=== PATIENT | male | born 1940 | race Caucasian/White ===

== ENCOUNTER 2017-07-15 12:43 | Inpatient (IN) ==
[2017-07-15] MEDS ORDERED: Ondansetron 4 MG/2 ML VIAL IVP ONE (13:13)
[2017-07-15] MEDS ORDERED: *HR* HYDROmorphone (PF) 1 MG/ML SYRINGE IVP ONE (13:17)
[2017-07-15 13:42] LABS: Basophils # 0.1 K/mcL (0.0-0.2); Basophils % 0.4 %; Eosinophils # 0.2 K/mcL (0.0-0.6); Eosinophils % 1.1 %; Hematocrit 34.6 % (37.5-50.1); Hemoglobin 10.7 g/dL (12.9-16.9); Immature Granulocytes % 0.7 % (0-4); Lymphocytes # 1.7 K/mcL (0.6-4.6); Lymphocytes % 8.6 %; Mean Corpuscular HGB Conc 30.9 g/dL (31.6-35.5); Mean Corpuscular Hemoglobin 27.7 pg (28.0-33.3); Mean Corpuscular Volume 89.6 fL (83.0-100.0); Monocytes # 1.4 K/mcL (0.0-1.3); Monocytes % 7.1 %; Neutrophils # 16.1 K/mcL (1.6-8.9); Platelet Count 461 K/mcL (140-400); Red Blood Count 3.86 M/mcL (4.19-5.50); Red Cell Distribution Width 16.1 % (11.5-14.5); Segmented Neutrophils % 82.1 %
[2017-07-15] MEDS ORDERED: Vancomycin 1,000 MG in D5% in Water 250 ML IVPB ONE (13:49)
[2017-07-15 13:56] LABS: Alanine Aminotransferase 9 Units/L (0-55); Albumin 2.7 g/dL (3.5-5.0); Albumin/Globulin Ratio 0.6 (1.1-2.2); Alkaline Phosphatase 124 Units/L (38-126); Aspartate Amino Transferase 13 Units/L (5-34); BUN/Creatinine Ratio 19 (6-26); Bilirubin,Total 0.6 mg/dL (0.2-1.2); Blood Urea Nitrogen 18 mg/dL (8-26); Calcium 8.8 mg/dL (8.6-10.8); Carbon Dioxide 23 mEq/L (19-29); Chloride 107 mEq/L (98-109); Globulin 4.7 g/dL (2.4-3.5); Glucose 160 mg/dL (70-99); Osmolality,Calculated 295 (280-300); Sodium 140 mEq/L (136-145); Total Protein 7.4 g/dL (6.0-8.3); eGFR For African Americans > 60 (> 60); eGFR For Non-African Americans > 60 (> 60)
--- NOTE | 2017-07-15 14:52 | Emergency Department Note ---
Disposition Clinical Impression: Diabetic ulcer of both feet, Weakness generalized, Elevated troponin Cellulitis Qualifiers: Site of cellulitis: extremity Site of cellulitis of extremity: lower extremity Laterality: unspecified laterality Qualified Code(s): L03.119 - Cellulitis of unspecified part of limb Disposition: Admitted As Inpatient Condition: Good Referrals: Laureano Modi Jr, MD [Primary Care Provider] - Forms: ED Satisfaction Letter Time of Disposition: 15:10 Weakness HPI - General Chief complaint: ED Weakness Stated complaint: weakness Time Seen by Provider: 07/15/17 12:48 Source: patient Nursing Notes Reviewed: Yes Vital Signs Reviewed: Yes - History of Present Illness HPI Narrative: The patient is a 77 y/o M with a history of untreated Diabetes who presents complaining of weakness and feet pain. The patient states that he has been feeling weak for about 3 months. He admits he lives alone and is unable to care for himself well. He states that he has a history of falling because he feels like his legs are weak. He denies any head trauma or Loss of consciousness. He states that he has been having bilateral feet pain for the past 3 months. HE describes it as a burning pain that does not radiate and worsens with walking. He admits applying Neosporin makes it feel better. HE admits tingling but denies any numbness in his bilateral feet. He admits it makes it hard for him to walk and that it causes him to shuffle his feet. He denies any fever, headaches, vision changes, chest pain, shortness of breath, difficulty in breathing, no abdominal pain, nausea and vomiting, and no neurological deficits. Pain Scale: 8 - Related Data Home Medications Medication Instructions Recorded Confirmed No Known Home Drugs 07/15/17 07/15/17 Allergies Allergy/AdvReac Type Severity Reaction Status Date / Time No Known Allergies Allergy Verified 07/03/15 17:42 All systems ED: reviewed and negative except as stated. Constitutional: Reports: weakness. Denies: fever, chills Cardiovascular: Denies: chest pain, palpitations, dyspnea on exertion Respiratory: Denies: dyspnea, wheezes Gastrointestinal: Denies: abdominal pain, nausea, vomiting Neurological: Reports: weakness, paresthesias (Admits paresthesias in his bilateral feet. ). Denies: headache, numbness Past Medical History - Past Medical History Medical history: Reports: COPD, coronary artery disease, diabetes, hyperlipidemia, hypertension Surgical history: Reports: no surgical history Psychiatric history: Reports: no psych history - Social History Smoking Status: Former smoker Smokeless Tobacco Status: No Alcohol use: Reports: none Drug use: Reports: none Physical Exam - General General appearance: alert, in no apparent distress - Head Head exam: atraumatic - Chest Chest inspection: Present: normal inspection. Absent: tenderness - Respiratory Respiratory exam: Present: wheezes (Expiratory wheezes bilaterally anteriorly). Absent: respiratory distress - Cardiovascular Cardiovascular exam: Present: tachycardia - Abdominal Exam Abdominal exam: Present: soft, Non-Tender. Absent: tenderness, distention, guarding, rebound, rigidity - Expanded Lower Extremity Exam Lower leg exam: Absent: tenderness, swelling, laceration Ankle exam: Present: tenderness (tenderness to palpation bilaterally), swelling (bilaterally), erythema. Absent: abrasion Foot/toe exam: Present: tenderness (tenderness to palpation bilaterally), swelling (bilateral swollen feet), erythema (bilateral feet are erythematous), other (ulcer present on the left heel. Open wounds on the dorsal aspect of bilateral feet with discharge present. Bilateral feet has toes that are black. ) Course - Consultations Consultation #1: Spoke with Marcella, the admitting [employer]IES COUNCIL DIRECTOR, at 14:09. Discussed the patient and she agree to admit the patient. Time: 14:09 Vital Signs Temperature 98.1 F 07/15/17 12:44 Pulse Rate 114 07/15/17 12:44 Respiratory Rate 16 07/15/17 12:44 Blood Pressure 167/103 07/15/17 12:44 O2 Sat by Pulse Oximetry 97 07/15/17 12:44 Temperature 98.1 F 07/15/17 12:44 Pulse Rate 102 07/15/17 14:57 Respiratory Rate 16 07/15/17 14:57 Blood Pressure 168/96 07/15/17 14:57 O2 Sat by Pulse Oximetry 98 07/15/17 14:57 Oxygen Delivery Oxygen Delivery Room Air Weakness - MDM Narrative Medical decision making narrative: The patient is a 77 y/o M with untreated Diabetes who present with weakness and bilateral feet pain. The patient lives alone and admits not receiving great care at home. Physical exam showed bilateral feet with diabetic ulcers, cellulitis of the lower extremities, and black toes. Open wounds and ulcers have some discharge from it. Labs showed elevated WBC at 19.6 and Hg of 10.7. Patient was given Vancomycin. CXR suggest Congestive heart failure. CT of head shows no intracranial abnormalities. Xray of bilateral ankle and feet shows no evidence of osteomyelitis. Spoke with the admitting doctor who had me speak with his [employer]IES COUNCIL DIRECTOR (Marcella) and discussed the patient. They agree to accept the patient. Patient agrees with the plan. - Lab Data Lab results reviewed: Yes I reviewed the patient's lab results. Result diagrams: 07/15/17 13:30 07/15/17 13:30 Lab Results 07/15/17 07/15/17 07/15/17 Range/Units 13:30 13:30 13:30 WBC 19.6 H (4.3-11.1) K/mcL RBC 3.86 L (4.19-5.50) M/mcL Hgb 10.7 L (12.9-16.9) g/dL Hct 34.6 L (37.5-50.1) % MCV 89.6 (83.0-100.0) fL MCH 27.7 L (28.0-33.3) pg MCHC 30.9 L (31.6-35.5) g/dL RDW 16.1 H (11.5-14.5) % Plt Count 461 H (140-400) K/mcL MPV 10.0 (9.4-12.4) fL Immature Gran % 0.7 (0-4) % Seg Neutrophils % 82.1 % Lymphocytes % 8.6 % Monocytes % 7.1 % Eosinophils % 1.1 % Basophils % 0.4 % Neutrophils # 16.1 H (1.6-8.9) K/mcL Lymphocytes # 1.7 (0.6-4.6) K/mcL Monocytes # 1.4 H (0.0-1.3) K/mcL Eosinophils # 0.2 (0.0-0.6) K/mcL Basophils # 0.1 (0.0-0.2) K/mcL Sodium 140 (136-145) mEq/L Potassium 4.0 (3.5-4.5) mEq/L Chloride 107 (98-109) mEq/L Carbon Dioxide 23 (19-29) mEq/L BUN 18 (8-26) mg/dL Creatinine 0.93 (0.72-1.25) mg/dL Est GFR ( Amer) > 60 (> 60) Est GFR (Non-Af Amer) > 60 (> 60) BUN/Creatinine Ratio 19 (6-26) Glucose 160 H (70-99) mg/dL Calculated Osmolality 295 (280-300) Lactic Acid (0.5-2.2) mmol/L Calcium 8.8 (8.6-10.8) mg/dL Total Bilirubin 0.6 (0.2-1.2) mg/dL AST 13 (5-34) Units/L ALT 9 (0-55) Units/L Alkaline Phosphatase 124 (38-126) Units/L Troponin I 0.04 H* (0-0.03) ng/mL Serum Total Protein 7.4 (6.0-8.3) g/dL Albumin 2.7 L (3.5-5.0) g/dL Globulin 4.7 H (2.4-3.5) g/dL Albumin/Globulin Ratio 0.6 L (1.1-2.2) 07/15/17 Range/Units 13:33 WBC (4.3-11.1) K/mcL RBC (4.19-5.50) M/mcL Hgb (12.9-16.9) g/dL Hct (37.5-50.1) % MCV (83.0-100.0) fL MCH (28.0-33.3) pg MCHC (31.6-35.5) g/dL RDW (11.5-14.5) % Plt Count (140-400) K/mcL MPV (9.4-12.4) fL Immature Gran % (0-4) % Seg Neutrophils % % Lymphocytes % % Monocytes % % Eosinophils % % Basophils % % Neutrophils # (1.6-8.9) K/mcL Lymphocytes # (0.6-4.6) K/mcL Monocytes # (0.0-1.3) K/mcL Eosinophils # (0.0-0.6) K/mcL Basophils # (0.0-0.2) K/mcL Sodium (136-145) mEq/L Potassium (3.5-4.5) mEq/L Chloride (98-109) mEq/L Carbon Dioxide (19-29) mEq/L BUN (8-26) mg/dL Creatinine (0.72-1.25) mg/dL Est GFR ( Amer) (> 60) Est GFR (Non-Af Amer) (> 60) BUN/Creatinine Ratio (6-26) Glucose (70-99) mg/dL Calculated Osmolality (280-300) Lactic Acid 1.4 (0.5-2.2) mmol/L Calcium (8.6-10.8) mg/dL Total Bilirubin (0.2-1.2) mg/dL AST (5-34) Units/L ALT (0-55) Units/L Alkaline Phosphatase (38-126) Units/L Troponin I (0-0.03) ng/mL Serum Total Protein (6.0-8.3) g/dL Albumin (3.5-5.0) g/dL Globulin (2.4-3.5) g/dL Albumin/Globulin Ratio (1.1-2.2) - Radiology Data Radiology results reviewed: Yes I reviewed the patient's radiology results. Chest X-Ray 07/15/17 13:13 IMPRESSION: Findings suggest congestive heart failure D/ / Jayson Jimenez MD / Jayson Jimenez MD Interpreting Provider: Jayson Jimenez MD Head CT 07/15/17 13:15 IMPRESSION: No acute intracranial abnormality. Diffuse atrophic changes with findings suggesting chronic microvascular ischemia an old right occipital lobe infarct D/ / Jayson Jimenez MD / Jayson Jimenez MD Interpreting Provider: Jayson Jimenez MD Ankle X-Ray 07/15/17 13:52 IMPRESSION: Soft tissue ulcer in the left heel with diffuse soft tissue swelling consistent with cellulitis. Extensive vascular calcifications suggest diabetes. No definite evidence of osteomyelitis. D/ / Jack Melendez MD / Jack Melendez MD Interpreting Provider: Jack Melendez MD Foot X-Ray 07/15/17 13:52 IMPRESSION: No acute bone or joint abnormality. D/ / Klever Diez MD / Klever Diez MD Interpreting Provider: Klever Diez MD - EKG Data EKG attestation: Yes I reviewed and interpreted this EKG. EKG shows normal: sinus rhythm Rate: tachycardia When compared to previous EKG there are: no significant changes Interpretation: no acute changes Critical Care Time Critical Care Time: Yes Total Critical Care Time: 35 Attestation: Critical care time 35 minutes to manage patient's elevated troponin, weakness, and diabetic ulcers. Attestation Statement - Attestation Attestation: Patient was seen with resident physician. I reviewed the history, physical, assessment and plan, and agree with the findings. I also personally evaluated this patient and had [id number] time with this patient. 77-year-old male presents emergency Department with a variety of complaints. Primarily he is complaining of generalized weakness and inability to walk. He also says he has had increasing pain in his feet. He says he is a diabetic but has not taken his insulin for well over a year. Denies fevers or chills. He denies chest pain or shortness of breath. On examination vital signs demonstrate elevated heart rate. Blood pressure was stable. ENT poorly kept but otherwise unremarkable. Heart and lungs are normal. Abdomen is soft and nontender. Extremities patient has diabetic ulcers with developing cellulitis in both feet bilaterally. Neurologically the patient is alert and oriented. ED course patient was started on an IV antibiotics for his feet. Blood cultures were drawn. Chest x-ray demonstrates CHF. X-rays of the feet did not reveal acute osteomyelitis. Troponin initially was mildly elevated. I think this is probably related to CHF as opposed to acute WA which is inconsistent with his EKG. EKG shows no acute ischemic changes. Because of the variety of issues this patient has will admit to the hospitalist service for further evaluation and treatment. Will start on IV antibiotics here and also make sure the patient is comfortable. We will also check blood cultures. Hospitalist service notified and agreed to accept patient. I agree with resident physician assessment and plan. Critical care time 35 minutes.
[2017-07-15] MEDS ORDERED: Dextrose Gel 15 GM PO PRN ×2 (17:07)
[2017-07-15] MEDS ORDERED: *HR* Dextrose 50 % in Water (Syg) 50 ML SYRINGE IVP PRN (17:07)
[2017-07-15] MEDS ORDERED: *HR* OxyCODONE Immed Rel 5 MG TABLET PO PRN (17:07)
[2017-07-15] MEDS ORDERED: D5% in Water 1,000 ML IVC PRN (17:07)
[2017-07-15] MEDS ORDERED: Vancomycin 1,250 MG in D5% in Water 250 ML IVPB SCH (18:00)
[2017-07-15 19:02] LABS: Hemoglobin A1C 9.3 %
[2017-07-15] MEDS ORDERED: Naloxone 0.4 MG/ML INJ IVP PRN (19:37)
[2017-07-15] MEDS ORDERED: Acetaminophen 325 MG TABLET PO PRN (19:37)
[2017-07-15] MEDS ORDERED: Ondansetron 4 MG/2 ML VIAL IVP PRN (19:37)
--- NOTE | 2017-07-15 21:13 | Electrocardiograph Report ---
[facility] Test Date: 2017-07-15 Pat Name: Varghese Mayorga Department: 103 Room: 3B47 Gender: M [employer] Supervisor: : [id number] Requested By: Joe Stanton Order Number: [id number] Reading MD: Lonnie Holt MD Measurements Intervals Roll Rate: 111 P: -16 AK: 124 QRS: 89 QRSD: 134 T: 35 QT: 349 QTc: 415 Interpretive Statements SINUS TACHYCARDIA Electronically Signed On 07-15-2017 21:11:54 EDT by Lonnie Holt MD
[2017-07-15] MEDS: Pantoprazole 40 MG VIAL IVP SCH (21:20)
[2017-07-15] MEDS: Insulin LISPRO 300 UNITS/3 ML VIAL SQ SCH (21:20)
[2017-07-15] MEDS: amLODIPine 5 MG TABLET PO SCH (21:21)
[2017-07-15] MEDS: *HR* Heparin 5,000 UNIT/ML VIAL SQ SCH (21:21)
[2017-07-15] MEDS: *HR* Morphine 2 MG/ML SYRINGE IVP PRN (21:45)
[2017-07-15] MEDS ORDERED: 0.9 % Sodium Chloride 1,000 ML IVC ONE (23:06)
--- NOTE | 2017-07-15 23:06 | Event Note ---
Date of Encounter: 07/15/17 Time of Encounter: 23:04 Patients and examined with nurse practitioner. Agree with assessment and plan. Patients with history of diabetes mellitus not taking any medications presents with bilateral foot cellulitis and symptoms suggestive of PVD. We start the patient on vancomycin and Zosyn. Hydrate. Podiatry to see arterial Doppler study of both lower extremity. Sliding scale insulin and check HbA1C. Wound and blood cultures. full code
--- NOTE | 2017-07-15 23:47 | Internal Med History&Physical ---
Date of Encounter: 07/16/17 Time of Encounter: 19:00 Assessment and Plan (1) Sepsis Current visit: Yes Status: Acute Patient currently meets sepsis criteria based on WBC, heart rate of 114, and infection related to cellulitis of bilateral feet. Initial lactic acid 1.4. IV NS 0.9 bolus and f/u fluids @ 100 mL/HR. Blood cultures x2 and wound culture ordered. IVPB vancomycin with pharmacy dosing and IVPB Zosyn 3.375 gm Q8 ordered for infection coverage. Repeat lactic acid. Monitor f/u labs for WBC and infection status. Supplemental O2 with titration and continuous SpO2 monitoring. Continuous cardiac telemetry for tachycardia. Qualifiers: Sepsis type: sepsis due to unspecified organism Qualified Code(s): A41.9 - Sepsis, unspecified organism (2) Cellulitis Current visit: Yes Status: Acute Bilateral cellulitis of the feet and ankles that patient states has been present for the past 4 months. Patient's feet are erythematous, edematous, and painful to the touch. Serosanguineous discharge. Wound culture ordered. IV vancomycin with pharmacy dosing and IV Zosyn 3.375 Q8 ordered for infection coverage. Blood cultures x2 ordered. Will adjust abx coverage based on culture results. CLIFF and CT of LEs ordered. Vascular surgery and Podiatry consults placed. Monitor f/u labs for infection status. Qualifiers: Site of cellulitis: extremity Site of cellulitis of extremity: lower extremity Laterality: unspecified laterality Qualified Code(s): L03.119 - Cellulitis of unspecified part of limb (3) Elevated troponin Current visit: Yes Status: Acute Patient's initial troponin is 0.04 on admission is most likely reactive due to current leukocytosis and cellulitis. Will trend troponin x2. Continuous cardiac telemetry due to current tachycardia. (4) Weakness generalized Current visit: Yes Status: Acute Patient presents with generalized weakness and pain in bilateral lower extremities to recurrent cellulitis and diabetic foot ulcers. Falls/safety precautions ordered. PT/OT consults ordered to assess for ambulation needs for post-discharge planning. (5) Anemia Current visit: Yes Status: Acute Hgb 10.7 and Hct 34.6 on admission. Patient has no history of anemia and denies unusual bleeding. Previous values in 2014 WNL. Fecal hemoccult ordered. Monitor H/H in follow-up labs. B12 and Folic acid ordered daily. Qualifiers: Anemia type: unspecified type Qualified Code(s): D64.9 - Anemia, unspecified (6) Diabetes Current visit: Yes Status: Chronic Hx of chronic diabetes with insulin control but patient reports he has not used insulin in two years due to the cost. Patient's diabetes is currently uncontrolled and he has advanced stage diabetic foot ulcers on bilateral feet. Diabetes Education consult ordered. Low-dose correction insulin sliding scale with hypoglycemic protocol ordered. BG checks ACHS. A1c is currently 9.3. Diabetic diet ordered. Wound Care consult and daily wound care ordered. 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 mellitus moth exterminator insulin use: with moth exterminator use Qualified Code(s) : E11.621 - Type 2 diabetes mellitus with foot ulcer; L97.509 - Non-pressure chronic ulcer of other part of unspecified foot with unspecified severity; L97.509 - Non-pressure chronic ulcer of other part of unspecified foot with unspecified severity; L97.509 - Non-pressure chronic ulcer of other part of unspecified foot with unspecified severity; L97.509 - Non-pressure chronic ulcer of other part of unspecified foot with unspecified severity; Z79.4 - oil heaterman (current) use of insulin; Z79.4 - halfway (current) use of insulin; Z79.4 - oil heaterman (current) use of insulin; Z79.4 - oil heaterman (current) use of insulin (7) HTN (hypertension) Current visit: Yes Status: Chronic Hx of chronic HTN. Patient's current BP is 167/103 on admission. Norvasc 10 mg ordered daily while inpatient. Monitor patient and VS. Qualifiers: Hypertension type: essential hypertension Qualified Code(s): I10 - Essential (primary) hypertension (8) HLD (hyperlipidemia) Current visit: Yes Status: Chronic Hx of chronic HLD but patient does not currently take any statin. Lipid panel ordered in a.m. labs. Will add Lipitor based on lipid panel results. Qualifiers: Hyperlipidemia type: pure hypercholesterolemia Qualified Code(s): E78.00 - Pure hypercholesterolemia, unspecified; E78.0 - Pure hypercholesterolemia (9) Diabetic ulcer of both feet Current visit: Yes Status: Chronic Patient presents with chronic advanced stage decubitus ulcers of bilateral feet. Patient states he has not used insulin in two years due to cost. Wound Care consult ordered with daily wound care. Wound culture ordered. Saddle And Side Wire Stitcher consult ordered. Low-dose correction insulin sliding scale ordered. BG checks ACHS. A1c is currently 9.3. Vascular surgery and Podiatry consults ordered. (10) DVT prophylaxis Current visit: Yes Status: Acute Heparin 5,000 units SQ Q8 for DVT prophylaxis. Internal Medicine - H&P: HPI Chief complaint: Weakness and Cellulitis of Bilateral LEs Admitted From: Emergency Dept Plans for Post Hospital Care: Home History of present illness: Mr. Mayorga is a 77 year old male with medical history of COPD, CAD, diabetes controlled with insulin, HLD, and HTN presents from the ED with chief complaint of weakness and bilateral foot pain related to infection. Patient states his feet are hurting for approximately 4 months on and off. Patient states he is living alone and unable to care for himself and currently has no support system. Patient reports history of falls due to leg numbness. Patient states his feet constantly burn and tingle making it hard for him to walk so he must shuffle his feet. Patient states he has not taken insulin for approximately 2 years due to the cost. Patient reports he is a former smoker who smoked 1.5 packs per day and quit 10 years ago. Patient denies recent illness, fever, chills, nausea, vomiting, headache, changes in vision, shortness of breath, chest pain, palpitations, lightheadedness, diarrhea, constipation, presyncope, or syncope. Three-view x-ray of the right foot today shows no acute bone or joint abnormality. Three-view x-ray of the right ankle there is no acute bony or joint abnormality. Three-view x-ray of the left foot and left ankle today show soft tissue ulcer and left heel with diffuse soft tissue swelling consistent with cellulitis. Extensive vascular calcifications suggest diabetes but no definite evidence of osteomyelitis. Single view CXR today shows findings suggestive of congestive heart failure. CT of the head without contrast today shows no acute intracranial abnormality and diffuse atrophic changes with findings suggesting chronic microvascular ischemia and old right occipital lobe infarct. Upon admission, patient's vital signs include temperature of 98.1F, heart rate of 114 bpm, respiratory rate of 16, BP of 167/ 103, and SPO2 97% on room air. Pertinent abnormal labs include WBC of 19.6, Hgb of 10.7, HCT of 34.6. White count of 461, glucose of 160 troponin of 0.04 albumin 2.7, globulin 4.7, and albumin/globulin ratio of 0.6. Initial lactic acid 1.4. Patient currently meets sepsis criteria based on WBC, heart rate of 114, and infection related to cellulitis of bilateral feet. On assessment, patient is alert and oriented 3 and states his feet are very painful to touch. Heart rate is tachycardic. Lungs have diminished breath sounds bilateral auscultation. Patient is hemodynamically stable and reports bilateral pain in feet as well as mild SOB. Mr. Mayorga is at high risk for morbidity based on current sepsis criteria, cellulitis of bilateral feet, uncontrolled diabetes, history, and risk factors and will be placed as inpatient status. Time spent with patient greater than 40 minutes. Past Med Surg Social Fam HX - Past Medical History Source: patient, old records reviewed Medical history: COPD, coronary artery disease, diabetes, hyperlipidemia, hypertension Psychiatric history: no psych history - Past Surgical History Surgical History: no surgical history - Social History Smoking Status: Former smoker Packs per day: 1.5 PPD - reports quitting 10 years ago Smokeless Tobacco Status: No Alcohol use: none Drug use: none Current living situation: Home Activity Level: Independent ambulation Recent Out of Country Travel Within the Last 8 Weeks: No Exposure or Possible Exposure to Illness During Travel: No - Family History Mother Race: Family Member Ethnicity: Non- Living Status: Age at : 70 Cause of : CAD Hx Family Cardiac Disorders: Yes (CAD) Hx Family Endocrine Disorder: Yes (DM) Father Race: Family Member Ethnicity: Non- Living Status: Age at : 60 Cause of : Emphysema Hx Family Cardiac Disorders: Yes (HD) Hx Family Respiratory Disorders: Yes (Emphysema) Brother Family Member Ethnicity: Non- Living Status: Still Living Hx Family Cardiac Disorders: Yes (HD, HTN) Hx Family Endocrine Disorder: Yes (DM) Sister Race: Family Member Ethnicity: Non- Living Status: Age at : 59 Cause of : DM complications Hx Family Endocrine Disorder: Yes (DM) Internal Medicine - H&P: Meds No Known Home Drugs 07/15/17 [History] 3 Allergy/AdvReac Type Severity Reaction Status Date / Time No Known Allergies Allergy Verified 09/20/15 17:42 All Systems PM: A 10-system review of systems was performed and is negative for pertinent findings except as documented above in the HPI. - Constitutional Constitutional: no chills, no fever(s), no night sweats - EENT Eyes: no change in vision, no discharge, no pain, no photophobia Ears: no ear discharge, no ear pain, no tinnitus Nose, mouth and throat: no dysphagia, no nasal discharge, no neck pain, no sore throat - Breasts Breasts: as per HPI - Cardiovascular Cardiovascular ROS IM: as per HPI, dyspnea, irregular heart rhythm (Tachycardia) - Respiratory Respiratory: as per HPI, dyspnea - Gastrointestinal Gastrointestinal: no abdominal pain, no diarrhea, no hematemesis, no hematochezia, no melena, no nausea, no vomiting - Genitourinary Genitourinary ROS male: as per HPI - Musculoskeletal Musculoskeletal ROS IM: as per HPI, numbness (Bilateral feet), tingling ( Bilateral feet) - Integumentary Integumentary IM: as per HPI, sores (Bilateral feet due to decubitus ulcers and cellulitis) - Neurological Neurological ROS: as per HPI, abnormal gait (Foot shuffling due to pain) - Psychiatric Psychiatric: as per HPI, anxiety - Endocrine Endocrine IM: as per HPI - Hematologic/Lymphatic Hematologic/Lymphatic: no easy bruising - Allergic/Immunologic Allergic/Immunologic: as per HPI - Constitutional Vitals: Temp Pulse Resp BP Pulse Ox 97.9 F 105 16 146/79 93 07/15/17 23:04 07/15/17 23:04 07/15/17 23:04 07/15/17 23:04 07/15/17 23:04 General appearance: Present: cooperative, disheveled, mild distress, A&O X 3, pleasant, answers questions appropriately - Head Head exam: Present: atraumatic, normocephalic - Eye Eye exam: Present: PERRL, conjuntiva pink, sclera anicteric Pupils: Present: PERRL - ENT ENT exam: Present: normal exam, normal external ear exam - Neck Neck exam general surgery: Present: supple, trachea midline. Absent: lymphadenopathy - Respiratory Respiratory exam: Present: decreased breath sounds - Cardiovascular Cardiovascular exam: Present: tachycardia - GI/Abdominal GI/Abdominal exam: Present: normal bowel sounds, soft, no peritoneal signs. Absent: distended, tenderness - Rectal Rectal exam: Present: deferred - Additional comments: exam deferred. - Extremities Exam Extremities exam: Present: pedal edema (Bilaterally in feet and LEs), warm - Back Exam Back exam: Present: vertebral tenderness (Sacral decubitus ulcer) - Neurological Exam Neurological exam: Present: CN II-XII intact, oriented X3, no focal deficits. Absent: pronater drift, facial droop, speech deficit - Psychiatric Psychiatric exam: Present: anxious - Skin Skin exam: Present: erythema (Erythema, edema, and discharge in bilateral feet) Internal Med - H&P Results - Labs CBC & Chem 7: 07/15/17 13:30 07/15/17 13:30 Labs: Cardiac Enzymes 07/15/17 Range/Units 20:07 Troponin I 0.04 H* (0-0.03) ng/mL - EKG Data EKG shows normal: sinus rhythm Rate: tachycardia - EKG Data Prior EKG available for review: yes EKG comments: 07/15/17 23:55 EKG dated 09/17/08 shows sinus tachycardia with short GA interval and extensive ST-T changes suggest myocardial injury/ischemia. EKG dated 07/15/17 shows sinus tachycardia with possible left atrial enlargement , right bundle branch block.
[2017-07-16] MEDS: *HR* Morphine 2 MG/ML SYRINGE IVP PRN ×4 (01:45→21:47)
[2017-07-16 01:54] LABS: Basophils # 0.1 K/mcL (0.0-0.2); Basophils % 0.3 %; Eosinophils # 0.2 K/mcL (0.0-0.6); Eosinophils % 0.9 %; Hematocrit 31.2 % (37.5-50.1); Hemoglobin 9.6 g/dL (12.9-16.9); Immature Granulocytes % 0.8 % (0-4); Lymphocytes # 1.5 K/mcL (0.6-4.6); Lymphocytes % 6.9 %; Mean Corpuscular HGB Conc 30.8 g/dL (31.6-35.5); Mean Platelet Volume 10.1 fL (9.4-12.4); Monocytes # 1.7 K/mcL (0.0-1.3); Monocytes % 8.2 %; Neutrophils # 17.5 K/mcL (1.6-8.9); Platelet Count 389 K/mcL (140-400); Red Blood Count 3.43 M/mcL (4.19-5.50); Red Cell Distribution Width 16.1 % (11.5-14.5); Segmented Neutrophils % 82.9 %
[2017-07-16 01:58] LABS: INR 1.2; Prothrombin Time 12.5 Seconds (9.4-12.1)
[2017-07-16 02:01] LABS: Activated Partial Thrombo Time 33.5 Seconds (26.0-36.0)
[2017-07-16 02:08] LABS: Alanine Aminotransferase 9 Units/L (0-55); Albumin 2.4 g/dL (3.5-5.0); Albumin/Globulin Ratio 0.6 (1.1-2.2); Alkaline Phosphatase 110 Units/L (38-126); Aspartate Amino Transferase 10 Units/L (5-34); BUN/Creatinine Ratio 18 (6-26); Bilirubin,Total 0.4 mg/dL (0.2-1.2); Blood Urea Nitrogen 20 mg/dL (8-26); Calcium 8.3 mg/dL (8.6-10.8); Carbon Dioxide 24 mEq/L (19-29); Chloride 108 mEq/L (98-109); Chol/HDL Ratio 3.8 (0-4.9); Cholesterol 127 mg/dL (< 200); Globulin 3.9 g/dL (2.4-3.5); Glucose 263 mg/dL (70-99); HDL Cholesterol 33 mg/dL (40-59); LDL Cholesterol,Calculated 73 mg/dL (0-99); Magnesium 1.5 mg/dL (1.6-2.6); Osmolality,Calculated 300 (280-300); Potassium 4.8 mEq/L (3.5-4.5); Sodium 139 mEq/L (136-145); Total Protein 6.3 g/dL (6.0-8.3); Triglycerides 106 mg/dL (< 150); eGFR For African Americans > 60 (> 60); eGFR For Non-African Americans > 60 (> 60)
[2017-07-16] MEDS: 0.9 % Sodium Chloride 1,000 ML IVC SCH ×2 (02:34→10:16)
[2017-07-16] MEDS: Vancomycin 1,000 MG in D5% in Water 250 ML IVPB SCH ×2 (02:34→16:07)
[2017-07-16] MEDS: Piperacillin/Tazobactam 3.375 GM in D5% in Water (Mini-Bag+) 100 ML IVPB SCH ×3 (02:35→16:09)
[2017-07-16] MEDS: *HR* OxyCODONE Immed Rel 5 MG TABLET PO PRN (02:36)
[2017-07-16] MEDS: *HR* Heparin 5,000 UNIT/ML VIAL SQ SCH ×3 (06:31→21:47)
[2017-07-16] MEDS ORDERED: Folic Acid 1 MG TABLET PO SCH (09:00)
[2017-07-16] MEDS ORDERED: Cyanocobalamin (B-12) 1,000 MCG TABLET PO SCH (09:00)
[2017-07-16] MEDS: Pantoprazole 40 MG VIAL IVP SCH (10:15)
[2017-07-16] MEDS: amLODIPine 5 MG TABLET PO SCH (10:16)
[2017-07-16] MEDS: Insulin LISPRO 300 UNITS/3 ML VIAL SQ SCH ×4 (10:17→21:42)
--- NOTE | 2017-07-16 11:04 | Vascular/Endovasc Consult Note ---
Date of Encounter: 07/16/17 Time of Encounter: 08:30 Assessment and Plan (1) Atherosclerosis of [place] arteries of right leg with ulceration of other part of foot Current Visit: Yes Status: Chronic The patient has bilateral foot ulcerations. Has a diminished pulse exam. His ankle brachial index is pending. The pathophysiology and natural history of peripheral vascular disease was discussed and all questions were answered. He has tentatively been scheduled for an angiogram on 07/17/17. The risks, benefits and alternatives were discussed and all questions were answered. He expressed understanding and wishes to proceed. (2) Atherosclerosis of [place] arteries of left leg with ulceration of other part of foot Current Visit: Yes Status: Chronic (3) Diabetes Current Visit: Yes Status: Chronic He was counseled regarding atherosclerotic risk factor reduction. 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 mellitus alf insulin use: without supervisor intermediates use Qualified Code( s): E11.621 - Type 2 diabetes mellitus with foot ulcer; L97.509 - Non-pressure chronic ulcer of other part of unspecified foot with unspecified severity; L97.509 - Non-pressure chronic ulcer of other part of unspecified foot with unspecified severity; L97.509 - Non-pressure chronic ulcer of other part of unspecified foot with unspecified severity; L97.509 - Non-pressure chronic ulcer of other part of unspecified foot with unspecified severity (4) HTN (hypertension) Current Visit: Yes Status: Chronic Qualifiers: Hypertension type: essential hypertension Qualified Code(s): I10 - Essential (primary) hypertension (5) HLD (hyperlipidemia) Current Visit: Yes Status: Chronic Qualifiers: Hyperlipidemia type: unspecified Qualified Code(s): E78.5 - Hyperlipidemia , unspecified - History of Present Illness Consult date: 07/16/17 Requesting physician: Job Goodman Consult reason: Peripheral vascular disease Chief complaint: bilateral foot ulceration History of present illness: Mr. Mayorga is a 77 year old male with a long history of diabetes who reports that he has not taken insulin for several months. He states that he has developed progressive bilatearl leg and foor pain as well as multiple ulcers. He was unable to obtain transportation to seek medical care during that time. The patient was seen in the ER and admitted to [facility]. He was started on intravenous antibiotics. He had a diminished pulse exam and vascular surgery was consulted for further evaluation. The patient denies any fevers or chills. He reports disabling claudication and ulceration. He denies chest pain or shortness of breath. Past Med Surg Social Fam HX - Past Medical History Medical history: COPD, coronary artery disease, diabetes, hyperlipidemia, hypertension Psychiatric history: no psych history - Past Surgical History Surgical History: no surgical history - Social History Smoking Status: Former smoker Packs per day: 1.5 PPD - reports quitting 10 years ago Smokeless Tobacco Status: No Alcohol use: none Drug use: none - Family History Mother Race: Family Member Ethnicity: Non- Living Status: Age at : 70 Cause of : CAD Hx Family Cardiac Disorders: Yes (CAD) Hx Family Endocrine Disorder: Yes (DM) Father Race: Family Member Ethnicity: Non- Living Status: Age at : 60 Cause of : Emphysema Hx Family Cardiac Disorders: Yes (HD) Hx Family Respiratory Disorders: Yes (Emphysema) Brother Family Member Ethnicity: Non- Living Status: Still Living Hx Family Cardiac Disorders: Yes (HD, HTN) Hx Family Endocrine Disorder: Yes (DM) Sister Race: Family Member Ethnicity: Non- Living Status: Age at : 59 Cause of : DM complications Hx Family Endocrine Disorder: Yes (DM) Medications and Allergies No Known Home Drugs 07/15/17 [History] 3 Allergy/AdvReac Type Severity Reaction Status Date / Time No Known Allergies Allergy Verified 07/03/15 17:42 All Systems Review: A 10-system review of systems was performed and is negative for pertinent findings except as documented above in the HPI. - Constitutional Constitutional: no chills, no fever(s) - Cardiovascular Cardiovascular: no chest pain at rest, no dyspnea at rest Exam Vital Signs, Last 4 Hours Temp Pulse Resp BP Pulse Ox 07/16/17 07:37 97.6 F 96 17 147/81 94 General: Present: Conversant, No Apparent Distress HEENT: Present: Trachea midline, Pupils equal Neck: Absent: JVD, Left Carotid bruit, Right Carotid bruit Cardiac: Present: Reg Rate and Rhythm, Normal S1 and S2 Lungs: Present: Normal Breath Sounds, No Wheeze, Rales, Rhonchi Neuro: Present: Alert and responsive, No focal deficits noted, Motor nerves grossly intact, Sensory nerves grossly intact Abdomen: Present: Soft, Non-tender. Absent: Masses Vascular: Present: Normal capillary refill, Edema (trace at bilateral ankles). Absent: Clubbing Skin: Present: Wound/ulcer(s) (bilateral foot ulcerations) Consult Discharge Plan - Plan Referrals: Magda Garcia CNP [Partnered Physician] - 07/24/17 10:30 am Laureano Modi Jr, MD [Primary Care Provider] - Jack Bernard MD [Partnered Physician] - (1 WEEK AFTER DISCHARGE)
[2017-07-16] MEDS ORDERED: Magnesium Sulfate 2 GM in D5% in Water 100 ML IVPB ONE (12:48)
[2017-07-16 12:55] LABS: Bilirubin,Urine Small (Negative); Blood,Urine Negative (Negative); Clarity,Urine Cloudy (Clear); Color,Urine Yellow (Yellow); Glucose,Urine (UA) 250 mg/dL (Normal); Ketones,Urine Negative (Negative); Leukocyte Esterase,Urine Negative (Negative); Nitrite,Urine Negative (Negative); PH,Urine 5.5 pH Units (5.0-8.0); Protein,Urine >=300 mg/dL (Neg-Trace); Urobilinogen,Urine Normal (Normal)
[2017-07-16 12:58] LABS: Bacteria,Urine None Seen per hpf (None-Few); Hyaline Casts,Urine None Seen per lpf (None-Few); Squamous Epithelial Cell,Urine Many per lpf (None-Few)
--- NOTE | 2017-07-16 16:55 | Internal Med Progress Note ---
Date of Encounter: 07/16/17 Time of Encounter: 12:40 - Assessment and plan (1) Sepsis Current Visit: Yes Status: Acute Assessment and plan: Presented with tachycardia and leukocytosis, noted to have cellulitis and infected ulcers on bilateral lower extremities and feet. Follow-up blood and wound cultures and continue broad-spectrum antibiotics. Serum lactic acid noted to be within normal limits. Qualifiers: Sepsis type: sepsis due to unspecified organism Qualified Code(s): A41.9 - Sepsis, unspecified organism (2) Cellulitis Current Visit: Yes Status: Acute Assessment and plan: Bilateral lower extremity cellulitis. Continue IV vancomycin and Zosyn. Lower extremity elevation. Supportive care. Pain control with when necessary oral Percocet and IV morphine. Vascular surgery consult appreciated, plan for angiogram tomorrow. Case discussed with podiatry, plan for or debridement of left heel ulcer with possible wound VAC placement after vascular surgery evaluation. Physical and occupational therapy evaluation pending. Patient has poor social support, rn social work consulted for safe discharge. Probably would benefit from rehabilitation placement. Qualifiers: Site of cellulitis: extremity Site of cellulitis of extremity: lower extremity Laterality: unspecified laterality Qualified Code(s): L03.119 - Cellulitis of unspecified part of limb (3) Diabetic ulcer of both feet Current Visit: Yes Status: Chronic (4) Elevated troponin Current Visit: Yes Status: Acute Assessment and plan: Likely due to demand ischemia due to underlying sepsis. Continue telemetry monitoring, cycle troponins. (5) Diabetes Current Visit: Yes Status: Chronic Assessment and plan: Patient is noted to have poorly controlled diabetes due to medical noncompliance. Start Accu-Chek blood glucose monitoring with sliding scale insulin regimen. Diabetic diet. museum educator consult. Hemoglobin A1c noted to be 9.3%. 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 mellitus petroleum terminal plant operator insulin use: without petroleum terminal plant operator use Qualified Code( s): E11.621 - Type 2 diabetes mellitus with foot ulcer; L97.509 - Non-pressure chronic ulcer of other part of unspecified foot with unspecified severity; L97.509 - Non-pressure chronic ulcer of other part of unspecified foot with unspecified severity; L97.509 - Non-pressure chronic ulcer of other part of unspecified foot with unspecified severity; L97.509 - Non-pressure chronic ulcer of other part of unspecified foot with unspecified severity (6) HTN (hypertension) Current Visit: Yes Status: Chronic Qualifiers: Hypertension type: essential hypertension Qualified Code(s): I10 - Essential (primary) hypertension (7) HLD (hyperlipidemia) Current Visit: Yes Status: Chronic Qualifiers: Hyperlipidemia type: unspecified Qualified Code(s): E78.5 - Hyperlipidemia , unspecified - Subjective Interval history: Reports severe pain in both his legs and feet; no chest pain, dyspnea; did not use insulin in a long time, no medical followup as he cannot afford; - Constitutional Vitals: Temp Pulse Resp BP Pulse Ox 97.7 F 103 18 130/77 93 07/16/17 15:50 07/16/17 15:50 07/16/17 15:50 07/16/17 15:50 07/16/17 15:50 General appearance: Present: cooperative, disheveled (very poor personal hygiene ), A&O X 3, answers questions appropriately - Respiratory Respiratory exam: Present: CTAB. Absent: accessory muscle use, rales, rhonchi, wheezes - Cardiovascular Cardiovascular exam: Present: RRR, +S1, +S2. Absent: diastolic murmur, gallop, rubs, systolic murmur - GI/Abdominal GI/Abdominal exam: Present: normal bowel sounds, soft, no peritoneal signs. Absent: distended, tenderness - Extremities Exam Extremities exam: Present: pedal edema, warm, radial pulses palpable and symmetrical. Absent: calf tenderness, cyanotic Additional comments: B/L lower extremities with diffuse edema, extreme tenderness, areas of erythema , superficial scabs, poor peripheral pulses, cool to touch; left heel ulcer- stage 4; - Neurological Exam Neurological exam: Present: CN II-XII intact, oriented X3, no focal deficits. Absent: pronater drift, facial droop, speech deficit Internal Medicine: Result - Labs CBC & Chem 7: 07/16/17 01:45 07/16/17 01:45 Labs: Short CBC 07/16/17 Range/Units 01:45 WBC 21.1 H (4.3-11.1) K/mcL Hgb 9.6 L (12.9-16.9) g/dL Hct 31.2 L (37.5-50.1) % Plt Count 389 (140-400) K/mcL Neutrophils # 17.5 H (1.6-8.9) K/mcL BMP 07/16/17 01:45 Sodium 139 Potassium 4.8 H Chloride 108 Carbon Dioxide 24 BUN 20 Creatinine 1.10 Glucose 263 H Calcium 8.3 L Cardiac Enzymes 07/15/17 07/16/17 Range/Units 20:07 01:45 Troponin I 0.04 H* 0.04 H* (0-0.03) ng/mL Liver Function 07/16/17 Range/Units 01:45 Total Bilirubin 0.4 (0.2-1.2) mg/dL AST 10 (5-34) Units/L ALT 9 (0-55) Units/L Alkaline Phosphatase 110 (38-126) Units/L Albumin 2.4 L (3.5-5.0) g/dL Urine 07/16/17 Range/Units 12:45 Urine Color Yellow (Yellow) Urine Clarity Cloudy A (Clear) Urine pH 5.5 (5.0-8.0) pH Units Ur Specific [place] 1.030 H (1.010-1.025) Urine Protein >=300 H (Neg-Trace) mg/dL Urine Glucose (UA) 250 H (Normal) mg/dL - ABG Interpretation ABG results: PT/INR, D-dimer PT 12.5 Seconds (9.4-12.1) H 07/16/17 01:45 - Impressions Impressions Lower Extremity CT 07/16/17 17:08 IMPRESSION: Extensive soft tissue edema without radiographic evidence for osteomyelitis. D/ / Marino Lei MD / Marino Lei MD Interpreting Provider: Marino Lei MD Lower Extremity CT 07/16/17 17:09 IMPRESSION: Extensive soft tissue edema without radiographic evidence for osteomyelitis. D/ / Marino Lei MD / Marino Lei MD Interpreting Provider: Marino Lei MD Consult Discharge Plan - Plan Referrals: Laureano Modi Jr, MD [Primary Care Provider] -
--- NOTE | 2017-07-16 16:59 | Podiatry Consult Note ---
Date of Encounter: 07/16/17 Time of Encounter: 12:00 Assessment and Plan (1) Cellulitis Current visit: Yes Status: Acute Assessment: Cellulitis of BLE Continue current antibiotic therapy- consider consult to ID if no response is noted Wound cultures and blood cultures have been obtained- will await results Monitor renal function SW will need to be on board for discharge planning Short CBC 07/16/17 Range/Units 01:45 WBC 21.1 H (4.3-11.1) K/mcL Hgb 9.6 L (12.9-16.9) g/dL Hct 31.2 L (37.5-50.1) % Plt Count 389 (140-400) K/mcL Neutrophils # 17.5 H (1.6-8.9) K/mcL BMP 07/16/17 Range/Units 01:45 Sodium 139 (136-145) mEq/L Potassium 4.8 H (3.5-4.5) mEq/L Chloride 108 (98-109) mEq/L Carbon Dioxide 24 (19-29) mEq/L BUN 20 (8-26) mg/dL Creatinine 1.10 (0.72-1.25) mg/dL Glucose 263 H (70-99) mg/dL Calcium 8.3 L (8.6-10.8) mg/dL Cardiac Enzymes 07/16/17 07/15/17 Range/Units 01:45 20:07 Troponin I 0.04 H* 0.04 H* (0-0.03) ng/mL Liver Function 07/16/17 Range/Units 01:45 Total Bilirubin 0.4 (0.2-1.2) mg/dL AST 10 (5-34) Units/L ALT 9 (0-55) Units/L Alkaline Phosphatase 110 (38-126) Units/L Albumin 2.4 L (3.5-5.0) g/dL Urine 07/16/17 Range/Units 12:45 Urine Color Yellow (Yellow) Urine Clarity Cloudy A (Clear) Urine pH 5.5 (5.0-8.0) pH Units Ur Specific New Site 1.030 H (1.010-1.025) Urine Protein >=300 H (Neg-Trace) mg/dL Urine Glucose (UA) 250 H (Normal) mg/dL Qualifiers: Site of cellulitis: extremity Site of cellulitis of extremity: lower extremity Laterality: unspecified laterality Qualified Code(s): L03.119 - Cellulitis of unspecified part of limb (2) Diabetic ulcer of both feet Current visit: Yes Status: Chronic There are multiple ulcerations to feet and legs- consistent with arterial disease, diabetes and poor self care Patient is scheduled for angiogram with vascular tomorrow- Will reevaluate after surgical intervention. 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 Qualified Code( s): E11.621 - Type 2 diabetes mellitus with foot ulcer; L97.509 - Non-pressure chronic ulcer of other part of unspecified foot with unspecified severity; L97.509 - Non-pressure chronic ulcer of other part of unspecified foot with unspecified severity; L97.509 - Non-pressure chronic ulcer of other part of unspecified foot with unspecified severity; L97.509 - Non-pressure chronic ulcer of other part of unspecified foot with unspecified severity (4) Pressure ulcer of left heel, unstageable Current visit: Yes Status: Acute Assessment: pressure ulceration of lateral/left heel unstageable related to presence of eschar tissue in wound bed measures [id number]. 80% fibrous slough/20% eschar tissue Plan: Continue application of allevyn for protection Apply styles boot or prevalon boot for protection of heel from further pressure Will plan for formal I&D in OR with on CT are negative for evidence of osteomyelitis Patient will need to be NPO after midnight on saturday Continue antibiotic therapy. Chest X-Ray 07/15/17 13:13 IMPRESSION: Findings suggest congestive heart failure D/ / Jayson Jimenez MD / Jayson Jimenez MD Interpreting Provider: Jayson Jimenez MD Head CT 07/15/17 13:15 IMPRESSION: No acute intracranial abnormality. Diffuse atrophic changes with findings suggesting chronic microvascular ischemia an old right occipital lobe infarct D/ / Jayson Jimenez MD / Jayson Jimenez MD Interpreting Provider: Jayson Jimenez MD Ankle X-Ray 07/15/17 13:52 IMPRESSION: Soft tissue ulcer in the left heel with diffuse soft tissue swelling consistent with cellulitis. Extensive vascular calcifications suggest diabetes. No definite evidence of osteomyelitis. D/ / Jack Melendez MD / Jack Melendez MD Interpreting Provider: Jack Melendez MD Foot X-Ray 07/15/17 13:52 IMPRESSION: No acute bone or joint abnormality. D/ / Klever Diez MD / Klever Diez MD Interpreting Provider: Klever Diez MD Lower Extremity CT 07/16/17 17:09 IMPRESSION: Extensive soft tissue edema without radiographic evidence for osteomyelitis. D/ / Marino Lei MD / Marino Lei MD Interpreting Provider: Marino Lei MD History of Present Illness HPI: Mr. Mayorga is a 77 year old male with a past medical history of cellulitis, diabetic fool ulcerations, DM, HTN, ALD, and atherosclerosis of BLE. On arrival patient is restless and eating lunch. Patient arrives to [facility] yesterday, states he has been falling frequently and did not know what was wrong. Patient is noted to have multiple ulcerations to BLE. Asked patient who follows him for these wounds, states he takes care of them himself. Patient requesting to get up to bathroom, does not want to wait, so assessment is limited based on limited interaction with patient. Patient does relate that he has severe pain to BLE and tingling, burning and numbness consistent with both arterial disease and diabetes mellitus. Patient states he has not taken insulin in 2 years related to cost. Patient does live alone and states he does not have anyone to help him. CT of BLE negative for abscess or underlying osseous involvement. Patient does meet sepsis criteria with elevated WBC, lactic acid 1.4, tachycardia 114. Patient was bolused with fluid and started on vancomycin and zosyn. Patient denies any known fevers or chills. Has a allevyn pad to left heel , otherwise no other dressings are noted. Past Med Surg Social Fam HX - Past Medical History Medical history: COPD, coronary artery disease, diabetes, hyperlipidemia, hypertension Psychiatric history: no psych history - Past Surgical History Surgical History: no surgical history - Social History Smoking Status: Former smoker Packs per day: 1.5 PPD - reports quitting 10 years ago Smokeless Tobacco Status: No Alcohol use: none Drug use: none - Family History Mother Race: Family Member Ethnicity: Non- Living Status: Age at : 70 Cause of : CAD Hx Family Cardiac Disorders: Yes (CAD) Hx Family Endocrine Disorder: Yes (DM) Father Race: Family Member Ethnicity: Non- Living Status: Age at : 60 Cause of : Emphysema Hx Family Cardiac Disorders: Yes (HD) Hx Family Respiratory Disorders: Yes (Emphysema) Brother Family Member Ethnicity: Non- Living Status: Still Living Hx Family Cardiac Disorders: Yes (HD, HTN) Hx Family Endocrine Disorder: Yes (DM) Sister Race: Family Member Ethnicity: Non- Living Status: Age at : 59 Cause of : DM complications Hx Family Endocrine Disorder: Yes (DM) Medications and Allergies No Known Home Drugs 07/15/17 [History] 3 Allergy/AdvReac Type Severity Reaction Status Date / Time No Known Allergies Allergy Verified 07/03/15 17:42 All Systems Reviewed: A 10-system review of systems was performed and is negative for pertinent findings except as documented above in the HPI. Physical Exam - Constitutional Vitals: Temp Pulse Resp BP Pulse Ox 97.7 F 103 18 130/77 93 07/16/17 15:50 07/16/17 15:50 07/16/17 15:50 07/16/17 15:50 07/16/17 15:50 Exam: Awake, alert and oriented Pedal pulses are non palpable Cap refill to BLE 4-5 seconds Edema 1+/4 BLE are painful to any palpation Foul odor from wounds Diabetic vs pressure ulceration to left heel Unstageable ulcer related to presence of eschar tissue 80% fibrous slough 20% black escar tissue- foul odor- serosang drainage [id number] Multiple ulcerations noted to dorsal aspects of feet, tibial areas of BLE and toes however patient not cooperative with measurement at this time Wounds appear dry and superficial Will perform further assessment tomorrow. No calf pain with manual compression. Results - Labs Result Diagrams: 07/16/17 01:45 07/16/17 01:45 Labs: Abnormal lab results WBC 21.1 K/mcL (4.3-11.1) H 07/16/17 01:45 RBC 3.43 M/mcL (4.19-5.50) L 07/16/17 01:45 Hgb 9.6 g/dL (12.9-16.9) L 07/16/17 01:45 Hct 31.2 % (37.5-50.1) L 07/16/17 01:45 MCHC 30.8 g/dL (31.6-35.5) L 07/16/17 01:45 RDW 16.1 % (11.5-14.5) H 07/16/17 01:45 Neutrophils # 17.5 K/mcL (1.6-8.9) H 07/16/17 01:45 Monocytes # 1.7 K/mcL (0.0-1.3) H 07/16/17 01:45 PT 12.5 Seconds (9.4-12.1) H 07/16/17 01:45 Potassium 4.8 mEq/L (3.5-4.5) H 07/16/17 01:45 Glucose 263 mg/dL (70-99) H 07/16/17 01:45 POC Glucose 168 (58-89) H 07/16/17 11:56 Hemoglobin A1c 9.3 % (-5.6) H 07/15/17 13:30 Calcium 8.3 mg/dL (8.6-10.8) L 07/16/17 01:45 Magnesium 1.5 mg/dL (1.6-2.6) L 07/16/17 01:45 Troponin I 0.04 ng/mL (0-0.03) H* 07/16/17 01:45 Albumin 2.4 g/dL (3.5-5.0) L 07/16/17 01:45 Globulin 3.9 g/dL (2.4-3.5) H 07/16/17 01:45 Albumin/Globulin Ratio 0.6 (1.1-2.2) L 07/16/17 01:45 HDL Cholesterol 33 mg/dL (40-59) L 07/16/17 01:45 Urine Clarity Cloudy (Clear) A 07/16/17 12:45 Ur Specific New Site 1.030 (1.010-1.025) H 07/16/17 12:45 Urine Protein >=300 mg/dL (Neg-Trace) H 07/16/17 12:45 Urine Glucose (UA) 250 mg/dL (Normal) H 07/16/17 12:45 Urine Bilirubin Small (Negative) H 07/16/17 12:45 Urine Microscopic RBC 5-15 per hpf (0-3) H 07/16/17 12:45 Urine Microscopic WBC 5-15 per hpf (0-3) H 07/16/17 12:45 Ur Squamous Epith Cells Many per lpf (None-Few) H 07/16/17 12:45 H & H 07/16/17 Range/Units 01:45 Hgb 9.6 L (12.9-16.9) g/dL Hct 31.2 L (37.5-50.1) % All other labs normal. Consult Discharge Plan - Plan Referrals: Laureano Modi Jr, MD [Primary Care Provider] -
--- NOTE | 2017-07-16 18:02 | Arterial Study Report ---
LE Arterial Physiologic Study Patient Name:Varghese Mayorga Order Number:[id number] Procedure Date:07/16/2017 Date:1940ge:77 yrs Gender:Male Lt BP:149 / mmHg Rt.BP:153 / mmHgHeart Rate: Location:[facility] Room #: 3B47 Sill Worker:Casie Bunch RVT Referring MD:Job Goodman, DOCTOR OF OSTEOPATHY Reading MD:Jack Bernard MD Primary Indications:bilateral poor circulation Risk Factors Yes/No Diabetes Yes Hypercholesterolemia Yes Smoker Previous Yes Impressions: The right CLIFF and waveforms are consistent with moderate disease. Right CLIFF 0.48. The left CLIFF and waveforms are consistent with severe disease. Left CLIFF 0.54. Recommendations: Risk factor reduction. Further evaluation is recommended. Findings LE Arterial Physiologic Exam: Segmental Pressures: Right: The posterior tibial pressure on the right was not obtained secondary to no audible Doppler signal. Left: The posterior tibial pressure on the left was not obtained secondary to no audible Doppler signal. CLIFF: Right: The Posterior Tibial CLIFF on the right was not obtained secondary to no audible Doppler signal. Left: The Posterior Tibial CLIFF on the left was not obtained secondary to no audible Doppler signal. PVR: Right: The PVR waveforms are severely diminished in the right ankle. Left: The PVR waveforms are severely diminished in the left ankle. Prior Study: No prior study available for comparison. Segmental Pressures Side Location Pressure Index Result Right Dorsalis Pedis 74 0.48 Severely Diminished Left Dorsalis Pedis 82 0.54 Moderately Diminished Ankle Brachial Index Right Systolic Diastolic CLIFF Brachial 153 0.48 Dorsalis Pedis 74 0.48 Left Systolic Diastolic CLIFF Brachial 149 0.54 Dorsalis Pedis 82 0.54 Updated by Jack Bernard MD on 07/16/2017 5:55:33 PM with Status of Final electronically signed on 07/16/2017 5:55:48 PM with status of Final
[2017-07-16] MEDS: Ascorbic Acid 500 MG TABLET PO SCH (21:47)
[2017-07-17] MEDS: *HR* OxyCODONE Immed Rel 5 MG TABLET PO PRN ×2 (00:47→19:55)
[2017-07-17] MEDS: Piperacillin/Tazobactam 3.375 GM in D5% in Water (Mini-Bag+) 100 ML IVPB SCH ×3 (00:47→22:37)
[2017-07-17] MEDS: Vancomycin 1,000 MG in D5% in Water 250 ML IVPB SCH ×2 (03:15→15:11)
[2017-07-17 04:43] LABS: Hematocrit 30.3 % (37.5-50.1); Hemoglobin 9.2 g/dL (12.9-16.9); Immature Granulocytes % 0.7 % (0-4); Mean Corpuscular HGB Conc 30.4 g/dL (31.6-35.5); Mean Corpuscular Hemoglobin 27.9 pg (28.0-33.3); Mean Corpuscular Volume 91.8 fL (83.0-100.0); Mean Platelet Volume 10.6 fL (9.4-12.4); Platelet Count 390 K/mcL (140-400); Red Cell Distribution Width 16.2 % (11.5-14.5); Segmented Neutrophils % 82.9 %
[2017-07-17 04:44] LABS: Basophils # 0.1 K/mcL (0.0-0.2); Basophils % 0.3 %; Eosinophils # 0.2 K/mcL (0.0-0.6); Eosinophils % 0.9 %; Lymphocytes # 1.3 K/mcL (0.6-4.6); Lymphocytes % 6.9 %; Monocytes # 1.5 K/mcL (0.0-1.3); Monocytes % 8.3 %
[2017-07-17 05:05] LABS: BUN/Creatinine Ratio 17 (6-26); Blood Urea Nitrogen 19 mg/dL (8-26); Calcium 8.1 mg/dL (8.6-10.8); Carbon Dioxide 24 mEq/L (19-29); Chloride 110 mEq/L (98-109); Glucose 260 mg/dL (70-99); Magnesium 1.7 mg/dL (1.6-2.6); Osmolality,Calculated 301 (280-300); Potassium 4.2 mEq/L (3.5-4.5); Sodium 140 mEq/L (136-145); eGFR For African Americans > 60 (> 60); eGFR For Non-African Americans > 60 (> 60)
[2017-07-17 05:09] LABS: % Iron Saturation 10 % (20-55); Iron 21 mcg/dL (65-175); Transferrin 143 mg/dL (174-364)
[2017-07-17 05:29] LABS: Ferritin 331 ng/ml (22-275)
[2017-07-17] MEDS: *HR* Heparin 5,000 UNIT/ML VIAL SQ SCH ×3 (06:21→22:37)
[2017-07-17] MEDS: Insulin LISPRO 300 UNITS/3 ML VIAL SQ SCH ×4 (08:45→20:52)
[2017-07-17] MEDS: Ascorbic Acid 500 MG TABLET PO SCH ×2 (10:08→20:51)
[2017-07-17] MEDS: Zinc Sulfate 220 MG CAPSULE PO SCH (10:08)
[2017-07-17] MEDS: amLODIPine 5 MG TABLET PO SCH (10:08)
[2017-07-17] MEDS: Multivit/Ca/Min/Fe/FA 1 TAB TABLET PO SCH (10:08)
[2017-07-17] MEDS ORDERED: 0.9 % Sodium Chloride 1,000 ML ONE ×2 (10:31→11:05)
[2017-07-17] MEDS ORDERED: Heparin 1,000 UNITS/500 mL NS 500 ML ONE (10:31)
[2017-07-17] MEDS ORDERED: *HR* Heparin 10,000 UNIT/10 ML VIAL ONE (10:31)
[2017-07-17] MEDS ORDERED: *HR* Midazolam HCl 2 MG/2 ML VIAL ONE (10:56)
--- NOTE | 2017-07-17 10:59 | Pre-Sedation Evaluation ---
Pre-sedation evaluation - Pre-sedation checklist Recent Vitals: Last Vital Signs Temp 97.6 F 07/17/17 07:59 Pulse 91 07/17/17 07:59 Resp 16 07/17/17 07:59 BP 146/89 07/17/17 07:59 Pulse Ox 94 07/17/17 07:59 Dietary Status: NPO after Midnight ASA Classification *see protocol: CLASS III-Severe systemic disease Plan of Care: Pt appropriate candidate for procedure/moderate/conscious sedation , Risks/benefits of procedure/sedation discussed w/ patient/family
[2017-07-17] MEDS ORDERED: *HR* FentaNYL (PF) 100 MCG/2 ML VIAL ONE ×2 (11:15→11:35)
[2017-07-17] MEDS ORDERED: 0.9 % Sodium Chloride 500 ML ONE (11:41)
--- NOTE | 2017-07-17 13:00 | Procedure Note ---
Date of procedure: 07/17/17 Pre-op diagnosis: Peripheral vascular disease with ulceration Post-op diagnosis: same Procedure: Angiogram via 7 central african sheath in left common femoral artery. Right popliteal artery atherectomy with 7 central african pantheris catheter. Right popliteal artery angioplasty with 4 x 150mm balloon. Starclose device used for hemostasis. Anesthesia: local, IV sedation (moderate conscious sedation) Surgeon: Jack Bernard Estimated blood loss (cc): 1 Pathology: none sent Condition: stable (no complications) Disposition: floor
--- NOTE | 2017-07-17 13:01 | Invasive Diagnostic Lab Proc ---
Name: Varghese Mayorga Date of Study: 07/17/2017 Date: 1940 Ht: 180.0 in Medical Record#: [id number] Age: 77 Wt: 86 lb Gender: Male BSA: 2.06 Order #: [id number] BMI: 26.54 Physicians Performing MD: Jack Bernard MD Referring MD: Referring MD: Staff Name Position Time In Monse Nicole RT (R) Scrub Griffin Shah RT (R) Monitor Dominic Ortega RN Bevel Operator ShayLaisha latham RN Bevel Operator Indications Non-healing Ulcer Procedures Performed AORTOGRAPHY, ABDOMINAL S&I AORTOGRAPHY EXT Bilat S&I FEM/POPL REVAS W/ATHER Pre-Procedure Checklist Informed consent is complete signed and on chart. H&P is on chart. ID band is on and ID verified with patient. Patient NPO for procedure The procedure was described for the patient and questions were answered. Blood Pressure: 171/89 ECG is on chart. Rhythm: Sinus Tachycardia Plan of Care Patient will tolerate the procedure without complications. Adequate level of comfort will be maintained. Hemodynamics will remain stable Patient will recover from procedure without complications. Respiratory function will be maintained. Cardiac rhythm will remain stable. Patient temperature will be maintained. Patient and/or family have verbalized understanding of the procedure. Patient Education Chief Complaint/Reason for Test: Peripheral angiogram Developmental Category: Geriatric (65+ years) Learning Barriers: None Education Needs: Procedure Education Method: Verbal Information Taught: Peripheral angiogram Educational Evaluation: Able to repeat information Intravenous Access Time IV Size Location DC'd Fluid/Drip Rate Units RN 09:34 20g 1 1/4" Patent On Arrival Lt Arm 09:34 18g 1 1/4" Patent On Arrival Lt Hand 0.9NaCl 25 ml/hr Dominic Ortega RN Allergies NKDA Vital Signs Time BP Systolic BP Diastolic HR O2 Sats ASA 09:34 AM 146 89 91 96 10:53 AM 10:53 AM 11:09 AM 11:24 AM 11:39 AM 11:54 AM 12:09 PM 12:24 PM 11:05 AM 171 105 108 98 11:08 AM 173 109 106 98 11:13 AM 170 105 104 100 11:16 AM 168 103 98 100 11:22 AM 162 94 100 100 11:26 AM 159 95 100 100 11:31 AM 159 97 88 100 11:37 AM 157 101 100 96 11:41 AM 156 93 96 72 11:47 AM 154 94 96 84 11:51 AM 155 101 96 100 11:57 AM 160 98 98 93 12:02 PM 169 103 98 96 12:07 PM 162 93 99 98 12:12 PM 168 105 98 98 12:17 PM 170 104 100 100 12:22 PM 172 110 100 100 12:27 PM 178 108 101 100 12:32 PM 180 111 110 99 12:37 PM 179 107 109 100 12:42 PM 180 109 109 96 Procedure Medications Time Medication Dose Units Method Route 11:09 AM Versed 1 mg Intravenous 11:10 AM Oxygen 3 L/min nasal cannula 11:16 AM Fentanyl 100 mcg Intravenous 11:23 AM Lidocaine 2% 9 ml Subcutaneous 11:36 AM Fentanyl 50 mcg Intravenous 11:36 AM Lidocaine 2% 10 ml Subcutaneous 11:58 AM Heparin 5000 units Intravenous 12:21 PM Fentanyl 50 mcg Intravenous 12:32 PM Lidocaine 2% 10 ml Subcutaneous 12:36 PM Plavix 3000 mg Orally ASA Classification: CLASS III- Severe systemic disease (i.e. prior AMI, diabetes with vascular complications, morbid obesity) Dariel Score Preprocedure Postprocedure Activity 2- Moves 4 extremities sustained head lift Activity 2- Moves 4 extremities sustained head lift Circulation 2- SBP +/= 20 points of pre-anesthetic level Circulation 2- SBP +/= 20 points of pre-anesthetic level Consciousness 2- Awake and alert oriented x 3 Consciousness 2- Awake and alert oriented x 3 O2 Saturation 2- Able to maintain O2 satruation of 92% on room air O2 Saturation 2- Able to maintain O2 satruation of 92% on room air Respiratory 2- Able to deep breathe and cough well Respiratory 2- Able to deep breathe and cough well Total Score 10 Total Score 10 Contrast: Isovue 250- 150ml Contrast Amount: 76 ml Fluoro Dose: 178 mGy Procedure Log Time Note Entered By 10:53 AM Nicole Shea RT (R) Position: Scrub Time in: 10:52 [email or web address] 10:53 AM Griffin Shah RT (R) Position: Monitor Time in: 10:53 [email or web address] 10:53 AM Dominic Ortega RN Position: Bevel Operator Time in: 10:53 [email or web address] 10:53 AM Laisha Day RN Position: Bevel Operator Time in: 10:53 [email or web address] 10:53 AM Pt arrived to tin can laborer 1 at 10:53 [email or web address] 10:53 AM Time: :53 Is patient comfortable and pain free?: Yes [email or web address] 10:53 AM Time: 10:53LOC: 5 = Fully awake and oriented or at pre-proc level [email or web address] 10:53 AM Patient charges- Angio tray pack, Pulse Oximetry and ACIST tubing and transducer [email or web address] 10:54 AM Case delayed: No [email or web address] 10:55 AM Physician arrived 10:55 [email or web address] 10:56 AM David and kolby completed [email or web address] 10:56 AM Sign in performed according to hospital policy. [email or web address] 10:56 AM Procedure start 10:56 [email or web address] 10:56 AM ASA Class CLASS III- Severe systemic disease (i.e. prior AMI, diabetes with vascular complications, morbid obesity) [email or web address] 11:07 AM Hair removed from procedure site in procedure lab using clippers. Left groin prepped with Chloraprep by Laisha Day RN, safety strap applied then patient was draped. Skin intact. [email or web address] 11:07 AM Fungal rash noted per Dr. Bernard Rt Groin [email or web address] 11: AM Time: :53LOC: 5 = Fully awake and oriented or at pre-proc level [email or web address] 11: AM Time: 53 Is patient comfortable and pain free?: No [email or web address] 11:09 AM 11:09 Versed 1 mg Intravenous Given by Dominic Ortega RN [email or web address] 11:10 AM 11:10 Oxygen at 3 L/min per nasal cannula by Laisha Day RN [email or web address] 11:16 AM 11:16 Fentanyl 100 mcg Intravenous Given by Dominic Ortega RN [email or web address] 11:23 AM Time out perfomed [email or web address] 11:23 AM Ultrasound, Sonosite, utilized to obtain vascular access [email or web address] 11:23 AM 11:23 9 ml Lidocaine 2% to left groin Subcutaneous Given By Jack Bernard MD [email or web address] 11:24 AM Time: 11:09 Is patient comfortable and pain free?: Yes [email or web address] 11:24 AM Time: 11:09LOC: 4 = Oriented but drowsy [email or web address] 11:25 AM Access obtained in the left femoral artery by percutaneous puncture. 4 Fr. 10 cm Terumo [place] sheath placed in left femoral artery [email or web address] 11:25 AM 0.035 180cm Bentson wire utilized to assist with catheter placement [email or web address] 11:26 AM 4Fr Omniflush catheter inserted over the wire [email or web address] 11:26 AM Abdominal aorta angiography performed in AP contrast injected 20/10 mls. [email or web address] 11:27 AM Setting up for stepping [email or web address] 11:28 AM Abdominal angiogram with runoff completed: 8 ml/sec for a total of 60 mls [email or web address] 11:31 AM Physician reviewing films [email or web address] 11:34 AM Right anterior tibial, Right posterior tibial, Right dorsalis pedis, and Right peroneal angiography performed in AP contrast injected 5 mls. [email or web address] 11:34 AM Catheter removed [email or web address] 11:35 AM Sheath exchanged for a 6 Fr 45 cm Terumo [place] sheath inserted into left femoral artery [email or web address] 11:36 AM 11:36 Fentanyl 50 mcg Intravenous Given by Dominic Ortega RN [email or web address] 11:37 AM 11:36 10 ml Lidocaine 2% to left groin Subcutaneous Given By Jack Bernard MD [email or web address] 11:38 AM 0.014 Victory 14, 30 gram 300cm guidewire advanced. [email or web address] 11:39 AM Time: 11:24LOC: 4 = Oriented but drowsy [email or web address] 11:39 AM Time: 11:24 Is patient comfortable and pain free?: No [email or web address] 11:42 AM 5Fr 135cm [place] guide catheter advanced [email or web address] 11:42 AM Guide wire removed intact [email or web address] 11:44 AM 0.035 260cm Bentson wire utilized to assist with catheter placement [email or web address] 11:45 AM Guide catheter removed intact [email or web address] 11:45 AM bentson wire removed [email or web address] 11:46 AM 180 bentson wire advanced [email or web address] 11:47 AM Sheath exchanged for a 7 Fr 45 cm Terumo Destination sheath inserted into left femoral artery [email or web address] 11:47 AM bentson removed [email or web address] 11:49 AM 0.014 Victory 14, 30 gram 300cm guidewire advanced. [email or web address] 11:51 AM 4Fr 150cm [place] guide catheter advanced [email or web address] 11:52 AM Guide wire removed intact [email or web address] 11:53 AM victory wire advanced [email or web address] 11:53 AM rubicon removed [email or web address] 11:54 AM Time: 11:39 Is patient comfortable and pain free?: Yes [email or web address] 11:54 AM Time: 11:39LOC: 4 = Oriented but drowsy [email or web address] 11:54 AM .035 rubicon advanced [email or web address] 11:55 AM Guide wire removed intact [email or web address] 11:56 AM A Spiderfx was inserted distal to the lesion. [email or web address] 11:58 AM rubicon removed [email or web address] 11:58 AM 11:58 Heparin 5000 units Intravenous by Dominic Ortega RN [email or web address] 12:05 PM Pantheris Atherectomy Device was inserted. [id number] [email or web address] 12:09 PM Time: 11:54LOC: 4 = Oriented but drowsy [email or web address] 12:09 PM Time: 11:54 Is patient comfortable and pain free?: Yes [email or web address] 12:19 PM Pantheris removed [email or web address] 12:21 PM 12:21 Fentanyl 50 mcg Intravenous Given by Laisha Day RN [email or web address] 12:22 PM 4 mm x 150 mm [place] balloon catheter advanced [email or web address] 12:24 PM Time: 12:09 Is patient comfortable and pain free?: Yes [email or web address] 12:24 PM Time: 12:09LOC: 4 = Oriented but drowsy [email or web address] 12:25 PM Balloon inflated @ 8 samara for 60 seconds [email or web address] 12:27 PM Balloon removed intact [email or web address] 12:28 PM .035 rubicon advanced [email or web address] 12:28 PM spider FX retrieved [email or web address] 12:29 PM rubicon removed [email or web address] 12:29 PM bentson wire advanced [email or web address] 12:32 PM 12:32 10 ml Lidocaine 2% to left groin Subcutaneous Given By Jack Bernard MD [email or web address] 12:33 PM Arterial sheath pulled. Brooke Starclose closure device used and was Successful [id number] S/N. [email or web address] 12:34 PM Procedure completed at 12:34 [email or web address] 12:34 PM Sign Out completed: Radiation Dose 178.41 mGy Fluoro Time: 9.1 minutes. Isovue 250- 150ml contrast 76 ml given by Jack Bernard MD. Complications: None. Confirmed administered medications:Yes [email or web address] 12:34 PM Isovue 250- 150ml,1 bottle(s) used. [email or web address] 12:35 PM Post Blood Pressure: 180/111 [email or web address] 12:35 PM Post EKG: Sinus Tachycardia [email or web address] 12:35 PM Information taught: Peripheral angiogram and PRECISION HONER [email or web address] 12:35 PM Education needs: Procedure, Plan of Care, and Disease Process [email or web address] 12:35 PM Learning barriers: Sedated and Cognitive [email or web address] 12:35 PM Education methods: Verbal [email or web address] 12:35 PM Education evaluation: Needs further instruction [email or web address] 12:35 PM Delay to floor: No [email or web address] 12:35 PM Complications: None [email or web address] 12:36 PM Fluoro Time: 9.1 minutes [email or web address] 12:36 PM Isovue 250- 150ml contrast 76 ml given by Jack Bernard MD [email or web address] [address] 12:36 PM Radiation Dose 178.41 mGy [email or web address] 12:36 PM Time: 12:36 Plavix 3000 mg Orally Given by Dominic Ortega RN [email or web address] 12:39 PM Time: 12:24LOC: 5 = Fully awake and oriented or at pre-proc level [email or web address] 12:39 PM Time: 12:24 Is patient comfortable and pain free?: Yes [email or web address] 12:40 PM Site status No bleeding/hematoma - Lt Groin as reported by Nicole Shea RT (R) at 12:40 [email or web address] 12:40 PM Opsite applied [email or web address] 10:54 AM PVIStat 11:04 AM PVIStat 11:04 AM Vitals capture started with the following parameters, Patient=Adult, Interval=5 min, Initial Zfegrvvh=590 mmHg, Deflation Rate=5 mmHg, Cuff placed on Right Arm 11:05 AM GH=594 bpm, TWYS=412/105 mmhg, SpO2=98.0 % 11:06 AM Recorded ECG: QU=587 Condition=Condition 1 11:07 AM Vitals capture stopped. 11:07 AM Vitals capture started with the following parameters, Patient=Adult, Interval=5 min, Initial Qrawexoi=664 mmHg, Deflation Rate=5 mmHg, Cuff placed on Right Arm 11:08 AM CA=570 bpm, MHZU=478/109 mmhg, SpO2=98.0 %, Resp=22 B/min 11:13 AM Pressure channel 2 zeroed. 11:13 AM TR=024 bpm, ZMVF=071/105 mmhg, FfI3=292.0 %, Resp=17 B/min 11:16 AM Vitals capture stopped. 11:57 AM HR=98 bpm, IZEP=096/98 mmhg, SpO2=93.0 %, Resp=21 B/min 12:02 PM HR=98 bpm, HYHZ=321/103 mmhg, SpO2=96.0 %, Resp=12 B/min 12:07 PM HR=99 bpm, QDNS=942/93 mmhg, SpO2=98 %, Resp=25 B/min 12:12 PM HR=98 bpm, ITMQ=623/105 mmhg, SpO2=98 %, Resp=23 B/min 12:17 PM HB=381 bpm, QTRK=379/104 mmhg, QgR8=146.0 %, Resp=25 B/min 12:22 PM PC=278 bpm, QJZP=703/110 mmhg, HxL0=422.0 %, Resp=15 B/min 12:27 PM UZ=210 bpm, XOTY=409/108 mmhg, AbK7=142.0 %, Resp=26 B/min 12:32 PM TL=970 bpm, ILFF=279/111 mmhg, SpO2=99.0 %, Resp=36 B/min 12:37 PM HA=235 bpm, TTNG=404/107 mmhg, TzE8=620.0 %, Resp=20 B/min 12:42 PM CB=518 bpm, NBKD=461/109 mmhg, SpO2=96.0 %, Resp=26 B/min 12:44 PM Vitals capture stopped. 11:16 AM Vitals capture started with the following parameters, Patient=Adult, Interval=5 min, Initial Isxeojmp=448 mmHg, Deflation Rate=5 mmHg, Cuff placed on Right Arm 11:16 AM HR=98 bpm, IDHA=495/103 mmhg, KsP1=092.0 %, Resp=20 B/min 11:22 AM NH=413 bpm, ILNE=651/94 mmhg, DyS4=418.0 %, Resp=13 B/min 11:24 AM Reference ECG taken 11:26 AM JG=015 bpm, DZTB=193/95 mmhg, PvL5=018.0 %, Resp=16 B/min 11:31 AM HR=88 bpm, YSHB=366/97 mmhg, CfG7=543.0 %, Resp=16 B/min 11:37 AM QI=628 bpm, KVVI=861/101 mmhg, SpO2=96.0 %, Resp=23 B/min 11:41 AM HR=96 bpm, IBDH=707/93 mmhg, SpO2=72.0 %, Resp=19 B/min 11:47 AM HR=96 bpm, UFHO=397/94 mmhg, SpO2=84.0 %, Resp=21 B/min 11:51 AM HR=96 bpm, HKNU=479/101 mmhg, QgD4=635.0 %, Resp=15 B/min 12:42 PM Report given to joni CROSS. Pt taken to , Room # 3 12:42 [email or web address] 12:45 PM No Family. [email or web address] 12:46 PM Pt will be going to Room# 3 [email or web address] 12:49 PM 12:49 Post Pulses: Bilateral DP Doppler. [email or web address] 12:49 PM 12:49 Post Pulses: Bilateral PT None. [email or web address] 12:52 PM Patient out of room 12:52 [email or web address] Post Procedure Information Blood Pressure: 180/111 mmHg Rhythm: Sinus Tachycardia Post procedure instructions given Report Given To: Lisa Site Checks Time Location Status Staff Sheath In? Note 12:40:00 PM Lt Groin No bleeding/ No Hematoma Nicole Shea RT (R) Pulses Time Site Pre Procedure Post Procedure Note 07/17/2017 11:01:00 AM Bilateral DP & PT None 12:49:00 PM Bilateral DP Doppler 12:49:00 PM Bilateral PT None Updated by Griffin Shah RT (R) on 07/17/2017 12:53:17 PM RT Miky electronically signed on 07/17/2017 12:53:46 PM with status of Final
[2017-07-17] MEDS: Pantoprazole 40 MG VIAL IVP SCH (15:30)
--- NOTE | 2017-07-17 17:09 | Internal Med Progress Note ---
Date of Encounter: 07/17/17 Time of Encounter: 14:45 - Assessment and plan (1) Sepsis Current Visit: Yes Status: Acute Assessment and plan: Presented with tachycardia and leukocytosis, noted to have cellulitis and infected ulcers on bilateral lower extremities and feet. Improving. Follow-up blood and wound cultures and continue broad-spectrum antibiotics. Serum lactic acid noted to be within normal limits. Qualifiers: Sepsis type: sepsis due to unspecified organism Qualified Code(s): A41.9 - Sepsis, unspecified organism (2) Cellulitis Current Visit: Yes Status: Acute Assessment and plan: Bilateral lower extremity cellulitis. Continue IV vancomycin and Zosyn. Lower extremity elevation. Supportive care. Pain control with when necessary oral Percocet and IV morphine. Vascular surgery on board, underwent left common femoral artery angiogram, right popliteal atherectomy and angioplasty today. Podiatry consulted, plan for possible debridement, incision and drainage of left heel ulcer with wound VAC placement. Physical and occupational therapy evaluation pending. Patient has poor social support, protective services social worker consulted for safe discharge. Probably would benefit from rehabilitation placement. Qualifiers: Site of cellulitis: extremity Site of cellulitis of extremity: lower extremity Laterality: unspecified laterality Qualified Code(s): L03.119 - Cellulitis of unspecified part of limb (3) Diabetic ulcer of both feet Current Visit: Yes Status: Chronic (4) Elevated troponin Current Visit: Yes Status: Resolved Assessment and plan: Likely due to demand ischemia due to underlying sepsis. Continue telemetry monitoring, cycle troponins. (5) Diabetes Current Visit: Yes Status: Chronic Assessment and plan: Patient is noted to have poorly controlled diabetes due to medical noncompliance. Continue Accu-Chek blood glucose monitoring with sliding scale insulin regimen. Diabetic diet. bank cashier consult. Hemoglobin A1c noted to be 9.3%. 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 mellitus termination clerk insulin use: without usp use Qualified Code( s): E11.621 - Type 2 diabetes mellitus with foot ulcer; L97.509 - Non-pressure chronic ulcer of other part of unspecified foot with unspecified severity; L97.509 - Non-pressure chronic ulcer of other part of unspecified foot with unspecified severity; L97.509 - Non-pressure chronic ulcer of other part of unspecified foot with unspecified severity; L97.509 - Non-pressure chronic ulcer of other part of unspecified foot with unspecified severity (6) HTN (hypertension) Current Visit: Yes Status: Chronic Assessment and plan: continue Norvasc and increase Metoprolol for appropriate BP control; low sodium diet; Qualifiers: Hypertension type: essential hypertension Qualified Code(s): I10 - Essential (primary) hypertension (7) HLD (hyperlipidemia) Current Visit: Yes Status: Chronic Qualifiers: Hyperlipidemia type: unspecified Qualified Code(s): E78.5 - Hyperlipidemia , unspecified - Subjective Interval history: Returned from OR; reports slight improvement in B/L leg pain since yesterday; - Constitutional Vitals: Temp Pulse Resp BP Pulse Ox 98.0 F 98 16 153/91 99 07/17/17 15:51 07/17/17 16:00 07/17/17 16:00 07/17/17 16:00 07/17/17 16:00 General appearance: Present: cooperative, disheveled, A&O X 3, answers questions appropriately - Respiratory Respiratory exam: Present: CTAB. Absent: accessory muscle use, rales, rhonchi, wheezes - Cardiovascular Cardiovascular exam: Present: RRR, +S1, +S2, tachycardia. Absent: diastolic murmur, gallop, rubs, systolic murmur - GI/Abdominal GI/Abdominal exam: Present: normal bowel sounds, soft (tenderness in LUQ, central abdomen), no peritoneal signs. Absent: distended, tenderness - Extremities Exam Extremities exam: Present: pedal edema, warm, radial pulses palpable and symmetrical. Absent: calf tenderness, cyanotic Additional comments: B/L leg and foot ulcers with vascular disease, poor peripheral pulses; exquisite tenderness - Neurological Exam Neurological exam: Present: CN II-XII intact, oriented X3, no focal deficits. Absent: pronater drift, facial droop, speech deficit Internal Medicine: Result - Labs CBC & Chem 7: 07/17/17 03:40 07/17/17 03:40 Labs: Short CBC 07/17/17 Range/Units 03:40 WBC 18.1 H (4.3-11.1) K/mcL Hgb 9.2 L (12.9-16.9) g/dL Hct 30.3 L (37.5-50.1) % Plt Count 390 (140-400) K/mcL Neutrophils # 15.0 H (1.6-8.9) K/mcL BMP 07/17/17 03:40 Sodium 140 Potassium 4.2 Chloride 110 H Carbon Dioxide 24 BUN 19 Creatinine 1.15 Glucose 260 H Calcium 8.1 L - ABG Interpretation ABG results: PT/INR, D-dimer PT 12.5 Seconds (9.4-12.1) H 07/16/17 01:45 Consult Discharge Plan - Plan Referrals: Laureano Modi Jr, MD [Primary Care Provider] -
[2017-07-17] MEDS: Nystatin Cream 15 GM TUBE TP SCH (20:51)
[2017-07-18 01:39] LABS: Basophils # 0.1 K/mcL (0.0-0.2); Basophils % 0.3 %; Eosinophils # 0.1 K/mcL (0.0-0.6); Eosinophils % 0.4 %; Hematocrit 30.8 % (37.5-50.1); Hemoglobin 9.4 g/dL (12.9-16.9); Lymphocytes # 1.3 K/mcL (0.6-4.6); Lymphocytes % 6.5 %; Mean Corpuscular HGB Conc 30.5 g/dL (31.6-35.5); Mean Corpuscular Hemoglobin 28.2 pg (28.0-33.3); Mean Corpuscular Volume 92.5 fL (83.0-100.0); Mean Platelet Volume 10.5 fL (9.4-12.4); Monocytes # 1.7 K/mcL (0.0-1.3); Monocytes % 8.2 %; Neutrophils # 17.1 K/mcL (1.6-8.9); Platelet Count 448 K/mcL (140-400); Red Blood Count 3.33 M/mcL (4.19-5.50); Red Cell Distribution Width 16.2 % (11.5-14.5); Segmented Neutrophils % 83.6 %
[2017-07-18 01:53] LABS: BUN/Creatinine Ratio 17 (6-26); Blood Urea Nitrogen 20 mg/dL (8-26); Calcium 8.6 mg/dL (8.6-10.8); Carbon Dioxide 21 mEq/L (19-29); Chloride 108 mEq/L (98-109); Glucose 237 mg/dL (70-99); Osmolality,Calculated 298 (280-300); Sodium 139 mEq/L (136-145); eGFR For African Americans > 60 (> 60); eGFR For Non-African Americans 59 (> 60)
[2017-07-18] MEDS: Piperacillin/Tazobactam 3.375 GM in D5% in Water (Mini-Bag+) 100 ML IVPB SCH ×3 (06:19→22:18)
[2017-07-18] MEDS: *HR* Heparin 5,000 UNIT/ML VIAL SQ SCH ×3 (06:21→21:08)
[2017-07-18 08:12] LABS: Acinetobacter baumannii by PCR Not Detected (Not Detect); Enterococcus by PCR Not Detected (Not Detect); Escherichia coli by PCR Not Detected (Not Detect); Klebsiella oxytoca by PCR Not Detected (Not Detect); Klebsiella pneumoniae by PCR Not Detected (Not Detect); Serratia marcescens by PCR Not Detected (Not Detect); Staphylococcus aureus by PCR Not Detected (Not Detect); Streptococcus agalactiae(B)PCR Not Detected (Not Detect); Streptococcus by PCR Not Detected (Not Detect); Streptococcus pneumoniae PCR Not Detected (Not Detect); Streptococcus pyogenes (A) PCR Not Detected (Not Detect); blaKPC Carbapenem-Resist Gene Not Detected (Not Detect); mecA Methicillin-Resist Gene Not Detected (Not Detect); vanA/B Vancomycin-Resist Genes Not Detected (Not Detect)
[2017-07-18 08:13] LABS: Candida albicans by PCR Not Detected (Not Detect); Candida glabrata by PCR Not Detected (Not Detect); Candida krusei by PCR Not Detected (Not Detect); Candida parapsilosis by PCR Not Detected (Not Detect); Candida tropicalis by PCR Not Detected (Not Detect); Pseudomonas aeruginosa by PCR Not Detected (Not Detect)
[2017-07-18] MEDS: Nystatin Cream 15 GM TUBE TP SCH ×2 (08:17→21:10)
[2017-07-18] MEDS: Zinc Sulfate 220 MG CAPSULE PO SCH (08:23)
[2017-07-18] MEDS: *HR* OxyCODONE Immed Rel 5 MG TABLET PO PRN ×3 (08:24→21:37)
[2017-07-18] MEDS: amLODIPine 5 MG TABLET PO SCH (08:25)
[2017-07-18] MEDS: Multivit/Ca/Min/Fe/FA 1 TAB TABLET PO SCH (08:25)
[2017-07-18] MEDS: Ascorbic Acid 500 MG TABLET PO SCH ×2 (08:25→21:07)
[2017-07-18] MEDS: Insulin LISPRO 300 UNITS/3 ML VIAL SQ SCH ×4 (08:34→21:09)
--- NOTE | 2017-07-18 11:14 | Internal Med Progress Note ---
Date of Encounter: 07/18/17 Time of Encounter: 10:50 - Assessment and plan (1) Sepsis Current Visit: Yes Status: Acute Assessment and plan: Presented with tachycardia and leukocytosis, noted to have cellulitis and infected ulcers on bilateral lower extremities and feet. Improving. Resolved sepsis. Initial 1/2 blood cultures grow GNR, wound culture grows 2 different GNRs and Enterococcus, pending sensitivities. Follow-up final blood and wound cultures and continue broad-spectrum antibiotics- IV Vancomycin and Zosyn. Will repeat blood cultures today. Will consult ID for further assistance. Qualifiers: Sepsis type: sepsis due to unspecified organism Qualified Code(s): A41.9 - Sepsis, unspecified organism (2) Cellulitis Current Visit: Yes Status: Acute Assessment and plan: Bilateral lower extremity cellulitis due to chronic vascular disease and ulcers. Continue IV vancomycin and Zosyn. Lower extremity elevation. Supportive care. Pain control with when necessary oral Percocet and IV morphine. Vascular surgery on board, underwent left common femoral artery angiogram, right popliteal atherectomy and angioplasty on 07/17/17. Podiatry on board, to continue with local wound care and IV antibiotics. Physical and occupational therapy evaluation pending. Patient has poor social support, public health social worker consulted for safe discharge. Probably would benefit from rehabilitation placement. Qualifiers: Site of cellulitis: extremity Site of cellulitis of extremity: lower extremity Laterality: unspecified laterality Qualified Code(s): L03.119 - Cellulitis of unspecified part of limb (3) Diabetic ulcer of both feet Current Visit: Yes Status: Chronic (4) Elevated troponin Current Visit: Yes Status: Resolved (5) Diabetes Current Visit: Yes Status: Chronic Assessment and plan: Patient is noted to have poorly controlled diabetes due to medical noncompliance. Continue Accu-Chek blood glucose monitoring with sliding scale insulin regimen. Will add basal insulin due to elevated blood sugars. Diabetic diet. rn diabetes educator consult. Hemoglobin A1c noted to be 9.3%. 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 mellitus penitentiary insulin use: without unattended ground sensor specialist use Qualified Code( s): E11.621 - Type 2 diabetes mellitus with foot ulcer; L97.509 - Non-pressure chronic ulcer of other part of unspecified foot with unspecified severity; L97.509 - Non-pressure chronic ulcer of other part of unspecified foot with unspecified severity; L97.509 - Non-pressure chronic ulcer of other part of unspecified foot with unspecified severity; L97.509 - Non-pressure chronic ulcer of other part of unspecified foot with unspecified severity (6) HTN (hypertension) Current Visit: Yes Status: Chronic Assessment and plan: continue Norvasc and Metoprolol for appropriate BP control; BP noted to be better controlled today. low sodium diet; Qualifiers: Hypertension type: essential hypertension Qualified Code(s): I10 - Essential (primary) hypertension (7) HLD (hyperlipidemia) Current Visit: Yes Status: Chronic Qualifiers: Hyperlipidemia type: unspecified Qualified Code(s): E78.5 - Hyperlipidemia , unspecified - Subjective Interval history: Reports feeling better; no fever/chills, chest pain, dyspnea; continues to have leg and feet pain, had them cleaned with dressing changes earlier today; - Constitutional Vitals: Temp Pulse Resp BP Pulse Ox 97.7 F 68 20 129/75 96 07/18/17 11:09 07/18/17 11:09 07/18/17 11:09 07/18/17 11:09 07/18/17 11:09 General appearance: Present: cooperative, A&O X 3, answers questions appropriately - Respiratory Respiratory exam: Present: CTAB. Absent: accessory muscle use, rales, rhonchi, wheezes - Cardiovascular Cardiovascular exam: Present: RRR, +S1, +S2. Absent: diastolic murmur, gallop, rubs, systolic murmur - GI/Abdominal GI/Abdominal exam: Present: normal bowel sounds, soft, no peritoneal signs. Absent: distended, tenderness - Extremities Exam Extremities exam: Present: full ROM, pedal edema, warm, radial pulses palpable and symmetrical. Absent: calf tenderness, cyanotic Additional comments: B/L legs and feet with shallow ischemic/vascular ulcers and skin changes with exquisite tenderness Left heel- unstageable ulcer with eschar - Neurological Exam Neurological exam: Present: CN II-XII intact, oriented X3, no focal deficits. Absent: pronater drift, facial droop, speech deficit Internal Medicine: Result - Labs CBC & Chem 7: 07/18/17 01:17 07/18/17 14:22 Labs: Short CBC 07/18/17 Range/Units 01:17 WBC 20.4 H (4.3-11.1) K/mcL Hgb 9.4 L (12.9-16.9) g/dL Hct 30.8 L (37.5-50.1) % Plt Count 448 H (140-400) K/mcL Neutrophils # 17.1 H (1.6-8.9) K/mcL BMP 07/18/17 01:17 Sodium 139 Potassium 5.0 H Chloride 108 Carbon Dioxide 21 BUN 20 Creatinine 1.20 Glucose 237 H Calcium 8.6 - ABG Interpretation ABG results: PT/INR, D-dimer PT 12.5 Seconds (9.4-12.1) H 07/16/17 01:45 Consult Discharge Plan - Plan Referrals: Magda Garcia CNP [Partnered Physician] - 07/24/17 10:30 am Laureano Modi Jr, MD [Primary Care Provider] - Jack Bernard MD [Partnered Physician] - (1 WEEK AFTER DISCHARGE)
--- NOTE | 2017-07-18 13:26 | Podiatry Progress Note ---
Date of Encounter: 07/19/17 Time of Encounter: 12:00 - Assessment and Plan (1) Cellulitis Current Visit: Yes Status: Acute Assessment: Cellulitis of BLE Continue current antibiotic therapy, however cultures currently showing preliminary enterococcus and gram negative rods- wbc remains elevated. consult to ID if needed Monitor renal function - vanc through noted to be high- continue dosing per pharmacy SW will need to be on board for discharge planning - patient states he needs home health assistance- will need assistance with dressing changes. Short CBC 07/16/17 Range/Units 01:45 WBC 21.1 H (4.3-11.1) K/mcL Hgb 9.6 L (12.9-16.9) g/dL Hct 31.2 L (37.5-50.1) % Plt Count 389 (140-400) K/mcL Neutrophils # 17.5 H (1.6-8.9) K/mcL BMP 07/16/17 Range/Units 01:45 Sodium 139 (136-145) mEq/L Potassium 4.8 H (3.5-4.5) mEq/L Chloride 108 (98-109) mEq/L Carbon Dioxide 24 (19-29) mEq/L BUN 20 (8-26) mg/dL Creatinine 1.10 (0.72-1.25) mg/dL Glucose 263 H (70-99) mg/dL Calcium 8.3 L (8.6-10.8) mg/dL Cardiac Enzymes 07/16/17 07/15/17 Range/Units 01:45 20:07 Troponin I 0.04 H* 0.04 H* (0-0.03) ng/mL Liver Function 07/16/17 Range/Units 01:45 Total Bilirubin 0.4 (0.2-1.2) mg/dL AST 10 (5-34) Units/L ALT 9 (0-55) Units/L Alkaline Phosphatase 110 (38-126) Units/L Albumin 2.4 L (3.5-5.0) g/dL Urine 07/16/17 Range/Units 12:45 Urine Color Yellow (Yellow) Urine Clarity Cloudy A (Clear) Urine pH 5.5 (5.0-8.0) pH Units Ur Specific [place] 1.030 H (1.010-1.025) Urine Protein >=300 H (Neg-Trace) mg/dL Urine Glucose (UA) 250 H (Normal) mg/dL Qualifiers: Site of cellulitis: extremity Site of cellulitis of extremity: lower extremity Laterality: unspecified laterality Qualified Code(s): L03.119 - Cellulitis of unspecified part of limb (2) Diabetic ulcer of both feet Current Visit: Yes Status: Chronic There are multiple ulcerations to feet and legs- consistent with arterial disease, diabetes and poor self care Patient underwent successful angiogram with Zaida on 07/17/2017 due to ulcerations of bilateral lower extremities in the presence of diminished pulses and prolonged capillary refill times. Right popliteal artery angioplasty with 4 x 150mm balloon was documented per op note. Pulses are faintly palpable on assessment today, BLE warm to touch. Ulcerations do appear slightly improved since admission assessment Continue ordered quarter dakins solution dressing to wounds of BLE. Patient will need to follow up with in wound care center after discharge. Will likely need home health care for dressing changes (3) Diabetes Current Visit: Yes Status: Chronic Patients glucose readings continue to be in mid 200 range- strict glucose control to promote healing and prevent further complication Consult diabetic education 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 mellitus usp insulin use: without terminal press operator use Qualified Code( s): E11.621 - Type 2 diabetes mellitus with foot ulcer; L97.509 - Non-pressure chronic ulcer of other part of unspecified foot with unspecified severity; L97.509 - Non-pressure chronic ulcer of other part of unspecified foot with unspecified severity; L97.509 - Non-pressure chronic ulcer of other part of unspecified foot with unspecified severity; L97.509 - Non-pressure chronic ulcer of other part of unspecified foot with unspecified severity (4) Pressure ulcer of left heel, unstageable Current Visit: Yes Status: Acute Assessment: pressure ulceration of lateral/left heel unstageable related to presence of eschar tissue in wound bed measures [id number]. 80% fibrous slough/20% eschar tissue Plan: Cleanse with soap and water, 25% dakins solution dressing to wounds Continue to elevate and protect heel with styles boot Awaiting wound culture results- continue antibiotic therapy Will order styles boot to RLE in addition to LLE. Right heel is boggy and slow to joey. Head CT 07/15/17 13:15 IMPRESSION: No acute intracranial abnormality. Diffuse atrophic changes with findings suggesting chronic microvascular ischemia an old right occipital lobe infarct D/ / Jayson Jimenez MD / Jayson Jimenez MD Interpreting Provider: Jayson Jimenez MD Ankle X-Ray 07/15/17 13:52 IMPRESSION: Soft tissue ulcer in the left heel with diffuse soft tissue swelling consistent with cellulitis. Extensive vascular calcifications suggest diabetes. No definite evidence of osteomyelitis. D/ / Jack Melendez MD / Jack Melendez MD Interpreting Provider: Jack Melendez MD Foot X-Ray 07/15/17 13:52 IMPRESSION: No acute bone or joint abnormality. D/ / Klever Diez MD / Klever Diez MD Interpreting Provider: Klever Diez MD Lower Extremity CT 07/16/17 17:09 IMPRESSION: Extensive soft tissue edema without radiographic evidence for osteomyelitis. D/ / Marino Lei MD / Marino Lei MD Interpreting Provider: Marino Lei MD Subjective Interval history: Continuing to follow patient for diabetic wounds to BLE. Patient has multiple wounds to BLE and between toes related to poorly controlled diabetes, atherosclerosis and poor self care. Patient has a pressure ulcer to left heel. Patient underwent an angio with zaida on 07/17 to left common femoral artery. Right popliteal artery atherectomy with 7 nepali pantheris catheter. Right popliteal artery angioplasty with 4 x 150mm balloon was documented per op note. Patient resting comfortably on arrival to room. Dressings intact. Wrote for application of dakins solution to wounds starting yesterday. Patient states they were changed this morning. Patient has a prevalon boot to LLE. Patient wbc remains elevated. VS are stable. No tachycardia, no hypotension. Afebrile >24 hours. Objective - Vital Signs Vital Signs: Vital Signs Temp Pulse Resp BP Pulse Ox 07/18/17 11:32 67 07/18/17 11:09 97.7 F 68 20 129/75 96 07/18/17 08:20 81 07/18/17 07:47 97.6 F 76 20 142/77 95 07/18/17 03:25 97.5 F L 71 19 122/75 99 07/17/17 23:17 98.6 F 94 17 128/83 90 07/17/17 18:47 97.5 F L 107 18 127/83 99 07/17/17 16:00 98 16 153/91 99 07/17/17 15:51 98.0 F 101 16 157/94 99 07/17/17 15:00 106 16 156/74 94 07/17/17 14:34 97.5 F L 07/17/17 14:30 105 155/94 94 07/17/17 14:00 102 152/103 07/17/17 13:45 115 161/84 100 07/17/17 13:30 110 157/97 96 Intake and Output 07/17/17 07/18/17 07/18/17 23:59 07:59 15:59 Intake Total 950 / 950 100 / 100 340 / 340 Output Total 180 / 180 Balance 770 / 770 100 / 100 340 / 340 Intake: IV Fluids 350 / 350 100 / 100 100 / 100 Zosyn 3.375 GM In Dextrose 5% ( 100 / 100 100 / 100 100 / 100 Minibag+) 100 ML 100 ML @ 25 mls/hr IVPB Q8H DAV Rx#: [id number] Vancocin 1,000 MG In Dextrose 5 250 / 250 % 250 ML @ 167 mls/hr IVPB Q12H DAV Rx#:[id number] Oral 600 / 600 240 / 240 Output: Urine 180 / 180 Other: Meal Dinner Breakfast Percent of Meal Consumed 100% 100% Stool Size Small Stool Consistency formed Stool Color Brown Weight 84 kg Blood Glucose* 267 226 Patient Weight 07/18/17 23:59 Weight 84 kg - Exam Exam: Awake alert and oriented Pulses DP and PT now faintly palpable BLE warm toes to tibia- cap refill 3 seconds Sensation intact to moderate touch. Strength 5/5 and equal bilaterally. There are multiple ulceration scatter across dorsal aspects of both feet, between toes and to posterior aspect of right calf. All diabetic wound are superficial and no depth is currently noted. Since being admitted, angio, wound care and bathing wound do appear to be improving. Pressure wound to left heel- dakins dressing removed- ulcer appears to be improving slightly. Wound bed continues to be filled with slough tissue. No granulation tissue noted at this time. Foul odor. Thick yellow drainage. No periwound edema or erythema noted at this time No ulcer noted to right heel however heel is more boggy than 07/16 assessment. Onychomycosis noted to nails #1 through #5. Only edge of nail #1 right remains connected- nail bed intact- no appearance of acute trauma. - Lab Result Diagrams: 07/19/17 03:07 07/19/17 03:07 Labs: Abnormal lab results WBC 20.4 K/mcL (4.3-11.1) H 07/18/17 01:17 RBC 3.33 M/mcL (4.19-5.50) L 07/18/17 01:17 Hgb 9.4 g/dL (12.9-16.9) L 07/18/17 01:17 Hct 30.8 % (37.5-50.1) L 07/18/17 01:17 MCHC 30.5 g/dL (31.6-35.5) L 07/18/17: RDW 16.2 % (11.5-14.5) H 07/18/17 01:17 Plt Count 448 K/mcL (140-400) H 07/18/17 01:17 Neutrophils # 17.1 K/mcL (1.6-8.9) H 07/18/17 01:17 Monocytes # 1.7 K/mcL (0.0-1.3) H 07/18/17:17 PT 12.5 Seconds (9.4-12.1) H 07/16/17 01:45 Potassium 5.0 mEq/L (3.5-4.5) H 07/18/17 01:17 Est GFR (Non-Af Amer) 59 (> 60) L 07/18/17 01:17 Glucose 237 mg/dL (70-99) H 07/18/17 01:17 POC Glucose 285 (58-89) H 07/18/17 08:10 Hemoglobin A1c 9.3 % (-5.6) H 07/15/17 13:30 Iron 21 mcg/dL (65-175) L 07/17/17 03:40 % Saturation 10 % (20-55) L 07/17/17 03:40 Transferrin 143 mg/dL (174-364) L 07/17/17 03:40 Ferritin 331 ng/ml (22-275) H 07/17/17 03:40 Troponin I 0.04 ng/mL (0-0.03) H* 07/16/17 01:45 Albumin 2.4 g/dL (3.5-5.0) L 07/16/17 01:45 Globulin 3.9 g/dL (2.4-3.5) H 07/16/17 01:45 Albumin/Globulin Ratio 0.6 (1.1-2.2) L 07/16/17 01:45 HDL Cholesterol 33 mg/dL (40-59) L 07/16/17 01:45 Urine Clarity Cloudy (Clear) A 07/16/17 12:45 Ur Specific [place] 1.030 (1.010-1.025) H 07/16/17 12:45 Urine Protein >=300 mg/dL (Neg-Trace) H 07/16/17 12:45 Urine Glucose (UA) 250 mg/dL (Normal) H 07/16/17 12:45 Urine Bilirubin Small (Negative) H 07/16/17 12:45 Urine Microscopic RBC 5-15 per hpf (0-3) H 07/16/17 12:45 Urine Microscopic WBC 5-15 per hpf (0-3) H 07/16/17 12:45 Ur Squamous Epith Cells Many per lpf (None-Few) H 07/16/17 12:45 Vancomycin Trough 23.7 mcg/mL (10-20) H* 07/18/17 01:17 Microbiology, Last 48 Hours 07/16/17 16:55 Wound Culture - Preliminary Left Foot Gram Negative Jere Gram Negative Jere#2 Enterococcus species Consult Discharge Plan - Plan Referrals: Magda Garcia, SAWMILL HAND [Partnered Physician] - 10/11/17 10:30 am Laureano Modi Jr, MD [Primary Care Provider] - Jack Bernard MD [Partnered Physician] - (1 WEEK AFTER DISCHARGE)
[2017-07-18] MEDS ORDERED: Magnesium Sulfate 2 GM in D5% in Water 100 ML IVPB PRN (13:52)
[2017-07-18 15:07] LABS: Calcium 8.6 mg/dL (8.6-10.8); Potassium 5.1 mEq/L (3.5-4.5)
[2017-07-18 15:11] LABS: Basophils % 0.2 %; Eosinophils % 0.1 %; Hematocrit 30.2 % (37.5-50.1); Hemoglobin 9.2 g/dL (12.9-16.9); Immature Granulocytes % 0.7 % (0-4); Lymphocytes # 0.8 K/mcL (0.6-4.6); Lymphocytes % 4.1 %; Mean Corpuscular HGB Conc 30.5 g/dL (31.6-35.5); Mean Corpuscular Hemoglobin 28.5 pg (28.0-33.3); Mean Corpuscular Volume 93.5 fL (83.0-100.0); Mean Platelet Volume 11.3 fL (9.4-12.4); Monocytes # 1.3 K/mcL (0.0-1.3); Monocytes % 6.9 %; Neutrophils # 16.2 K/mcL (1.6-8.9); Platelet Count 337 K/mcL (140-400); Red Blood Count 3.23 M/mcL (4.19-5.50); Red Cell Distribution Width 16.3 % (11.5-14.5)
--- NOTE | 2017-07-18 16:30 | Vascular/[facility] Progress Note ---
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 Has a diminished pulse exam. His ankle brachial index revealed evidence of severe bilateral lower extremity disease. His angiogram revealed a right popliteal artery occlusion and a left superficial femoral artery occlusion. He also has sever tibial disease. His right lower extremity was revascularized with atherectomy and angioplasty. He will require a left lower extremity revascularization which may include atherectomy, angioplasty, stent placement or bypass. The patient will need cardiac clearance for possible surgery. Continue with ASA and Plavix. He has cellulitis. His WBC remains elevated. Continue with antibiotics. Podiatry is following. (2) Atherosclerosis of [place] arteries of left leg with ulceration of other part of foot Current Visit: Yes Status: Chronic (3) Diabetes Current Visit: Yes Status: Chronic 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 mellitus exterminator helper termite insulin use: without fpc use Qualified Code( s): E11.621 - Type 2 diabetes mellitus with foot ulcer; L97.509 - Non-pressure chronic ulcer of other part of unspecified foot with unspecified severity; L97.509 - Non-pressure chronic ulcer of other part of unspecified foot with unspecified severity; L97.509 - Non-pressure chronic ulcer of other part of unspecified foot with unspecified severity; L97.509 - Non-pressure chronic ulcer of other part of unspecified foot with unspecified severity (4) HTN (hypertension) Current Visit: Yes Status: Chronic Qualifiers: Hypertension type: essential hypertension Qualified Code(s): I10 - Essential (primary) hypertension (5) HLD (hyperlipidemia) Current Visit: Yes Status: Chronic Qualifiers: Hyperlipidemia type: unspecified Qualified Code(s): E78.5 - Hyperlipidemia , unspecified - Subjective Interval history: The patient reports that his right leg feels better today. He reports adequate pain control. He denies fevers or chills. He denies chest pain or shortness of breath. Vital Signs, Last 4 Hours Pulse 07/18/17 15:52 71 - Physical Examination General: Present: Conversant, No Apparent Distress HEENT: Present: Pupils equal Cardiac: Present: Reg Rate and Rhythm, Normal S1 and S2 Lungs: Present: Normal Breath Sounds, No Wheeze, Rales, Rhonchi Neuro: Present: Alert and responsive, Motor nerves grossly intact, Sensory nerves grossly intact Vascular: Present: Pulse, diminished (left pedal signals are biphasic), Pulse, normal (right dorsalis pedis), Edema (trace bilateral lower extremity), Surgical incisions (no hematoma at left groin). Absent: Cyanosis Abdomen: Present: Soft, Non-tender. Absent: Masses Skin: Present: Wound/ulcer(s) (bilateral foot ulcers without drainage, no fluctuance, erythema is present), Other (right inguinal and lower abdominal fungal rash persists) Results 07/23/17 04:36 07/23/17 04:36 Lab Results, Last 24 hours 07/18/17 07/18/17 07/18/17 01:17 01:17 14:22 WBC 20.4 H 18.4 H Hgb 9.4 L 9.2 L Hct 30.8 L 30.2 L Plt Count 448 H 337 Sodium 139 Potassium 5.0 H Chloride 108 Carbon Dioxide 21 BUN 20 Creatinine 1.20 Glucose 237 H Calcium 8.6 07/18/17 14:22 WBC Hgb Hct Plt Count Sodium 138 Potassium 5.1 H Chloride 108 Carbon Dioxide 23 BUN 25 Creatinine 1.48 H Glucose 202 H Calcium 8.6 - Imaging / Other Tests Angiogram: report reviewed, image reviewed Consult Discharge Plan - Plan Referrals: Magda Garcia CNP [Partnered Physician] - 07/30/17 10:35 am Laureano Modi Jr, MD [Primary Care Provider] - Jack Bernard MD [Partnered Physician] - 08/07/17 1:00 pm (1 WEEK AFTER DISCHARGE)
[2017-07-18] MEDS: Insulin DETEMIR 100 UNIT/ML X5UNITS SQ SCH (21:08)
[2017-07-18] MEDS: *HR* Morphine 2 MG/ML SYRINGE IVP PRN (22:44)
[2017-07-19] MEDS: *HR* Morphine 2 MG/ML SYRINGE IVP PRN ×4 (03:17→22:00)
[2017-07-19 04:07] LABS: Basophils # 0.1 K/mcL (0.0-0.2); Basophils % 0.3 %; Eosinophils # 0.1 K/mcL (0.0-0.6); Eosinophils % 0.8 %; Hematocrit 28.3 % (37.5-50.1); Hemoglobin 8.7 g/dL (12.9-16.9); Immature Granulocytes % 0.6 % (0-4); Lymphocytes # 1.6 K/mcL (0.6-4.6); Lymphocytes % 9.2 %; Mean Corpuscular HGB Conc 30.7 g/dL (31.6-35.5); Mean Corpuscular Hemoglobin 28.7 pg (28.0-33.3); Mean Corpuscular Volume 93.4 fL (83.0-100.0); Monocytes # 1.9 K/mcL (0.0-1.3); Monocytes % 11.2 %; Neutrophils # 13.3 K/mcL (1.6-8.9); Platelet Count 405 K/mcL (140-400); Red Blood Count 3.03 M/mcL (4.19-5.50); Red Cell Distribution Width 16.3 % (11.5-14.5); Segmented Neutrophils % 77.9 %
[2017-07-19 04:24] LABS: Albumin 2.2 g/dL (3.5-5.0); Albumin/Globulin Ratio 0.5 (1.1-2.2); Bilirubin,Total 0.3 mg/dL (0.2-1.2); Calcium 8.6 mg/dL (8.6-10.8); Globulin 4.3 g/dL (2.4-3.5); Total Protein 6.5 g/dL (6.0-8.3)
[2017-07-19] MEDS: *HR* Heparin 5,000 UNIT/ML VIAL SQ SCH ×3 (05:28→21:32)
[2017-07-19] MEDS: Piperacillin/Tazobactam 3.375 GM in D5% in Water (Mini-Bag+) 100 ML IVPB SCH ×3 (05:28→21:29)
[2017-07-19] MEDS: *HR* OxyCODONE Immed Rel 5 MG TABLET PO PRN ×2 (05:34→11:17)
[2017-07-19] MEDS: Multivit/Ca/Min/Fe/FA 1 TAB TABLET PO SCH (07:54)
[2017-07-19] MEDS: amLODIPine 5 MG TABLET PO SCH (07:54)
[2017-07-19] MEDS: Zinc Sulfate 220 MG CAPSULE PO SCH (07:54)
[2017-07-19] MEDS: Ascorbic Acid 500 MG TABLET PO SCH ×2 (07:55→21:39)
[2017-07-19] MEDS: Nystatin Cream 15 GM TUBE TP SCH ×2 (07:59→21:42)
[2017-07-19] MEDS: Insulin LISPRO 300 UNITS/3 ML VIAL SQ SCH ×4 (08:00→21:37)
--- NOTE | 2017-07-19 09:57 | Infectious Disease Consult ---
Date of Encounter: 07/19/17 Time of Encounter: 09:55 Assessment and Plan (1) Sepsis Status: Resolved Assessment and plan: The patient had two SIRS criteria on admission. Likely secondary to infected arterial ulcers/cellulitis. Improved. Tachycardia has resolved. The patient's WBC remains elevated, but is slowly trending down. Blood cultures drawn 07/15/17 are NGTD x 2 sets. Qualifiers: Sepsis type: sepsis due to unspecified organism Qualified Code(s): A41.9 - Sepsis, unspecified organism (2) Bacteremia Status: Acute Assessment and plan: Causative organism unclear. Blood cultures drawn 07/15/17 are positive 1/2 sets for GNR. Given that nothing grew on solid medium, may be anaerobic and likely a contaminant. Await final report. (3) Cellulitis Status: Resolved Assessment and plan: Location: BLE per the medical record. Appears improved as there are no signs of cellulitis at this time. Causative organism unclear, but likely polymicrobial. Likely secondary to infected arterial ulcers. Wound culture grew P. mirabilis, K. oxytoca, and E. faecalis. CT of the BLE negative for OM or abscess. Podiatry consulted and following. Continue wound care per their recommendations. Currently on day 5 of Vancomycin and Zosyn. Discontinue Vancomycin. Continue Zosyn 3.375 grams IV Q8H. Duration of treatment depends on the clinical picture. Monitor renal function and dose-adjust antibiotics. Qualifiers: Site of cellulitis: extremity Site of cellulitis of extremity: lower extremity Laterality: unspecified laterality Qualified Code(s): L03.119 - Cellulitis of unspecified part of limb (4) Acute kidney injury Status: Acute Assessment and plan: Likely LUCY. Continue to trend. Dose-adjust antibiotics. Avoid nephrotoxins as able. (5) Arterial leg ulcer Status: Acute Assessment and plan: Location: Bilateral feet. ABIs completed 07/16/17 showed moderate disease in the RLE and severe disease in the LLE. Vascular surgery consulted. Status post angiogram with right popliteal arthrectomy with angioplasty 07/17/[address] Bernard. The patient will likely require surgical intervention on the LLE at a later date. Continue wound care per podiatry's recommendations. (6) Weakness generalized Status: Acute (7) Elevated troponin Status: Resolved Assessment and plan: Likely secondary to demand ischemia. Management per the primary team. (8) Atherosclerosis of [place] arteries of right leg with ulceration of other part of foot Status: Chronic Assessment and plan: CLIFF showed moderate disease. Vascular surgery consulted and following. Status post RLE popliteal arthrectomy with balloon angioplasty 07/17/[address] Bernard. (9) Atherosclerosis of [place] arteries of left leg with ulceration of other part of foot Status: Chronic Assessment and plan: CLIFF showed severe LLE disease. Vascular surgery consulted and following. Per Vascular, will likely require further LLE intervention/surgery at a later date. (10) Pressure ulcer of left heel, unstageable Status: Acute Assessment and plan: Likely multifactorial: pressure ulcer + arterial insufficiency. Patient refuses exam. Podiatry consulted and following. CT scan/XR negative for OM. Continue wound care per podiatry. Continue antibiotics as above. (11) Anemia Status: Chronic Assessment and plan: Etiology unclear. No acute bleeding noted on exam. Further workup and management per the primary team. Qualifiers: Anemia type: unspecified type Qualified Code(s): D64.9 - Anemia, unspecified (12) Diabetes Status: Chronic Assessment and plan: Patient reports he has not been taking his diabetic medications for two years. HgbA1C 9%. Recommend aggressive glucose monitoring and control to promote wound healing and prevent re-infection. 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 mellitus director long term care insulin use: without custodial use Qualified Code( s): E11.621 - Type 2 diabetes mellitus with foot ulcer; L97.509 - Non-pressure chronic ulcer of other part of unspecified foot with unspecified severity; L97.509 - Non-pressure chronic ulcer of other part of unspecified foot with unspecified severity; L97.509 - Non-pressure chronic ulcer of other part of unspecified foot with unspecified severity; L97.509 - Non-pressure chronic ulcer of other part of unspecified foot with unspecified severity Infectious Disease HPI - Data of Consult Patient: new to practice Consult date: 07/19/17 Requesting Physician: Ivett Musa MD Primary Care Provider: Laureano Modi Jr, MD - Consult Narrative Reason for consult: BLE ulcers and cellulitis History of present illness: Mr. Mayorga is a 77 year old male with a past medical history of DM, CAD, HLD, and HTN. The patient was admitted to the hospital 07/15/17 for BLE cellulitis. We are consulted 07/19/17 for antibiotic recommendations for cellulitis. The patient is a 77-year-old male with past medical history as stated above. The patient presented to the emergency department on the day of admission with complaints of a 3 month history of generalized weakness and bilateral foot pain with ulcers. Upon arrival, the patient was afebrile and tachycardic. He had leukocytosis with neutrophilic predominance. Since his metabolic panel was essentially negative. Lactic acid was normal. Troponin was elevated at 0.04. Chest x-ray was completed in the ER that showed findings consistent with CHF. CT of the head was negative. Bilateral foot and ankle x-rays were negative for ostomy colitis, but did show findings consistent with cellulitis. Blood cultures were obtained 2 sets the emergency department. The patient was started empirically on IV Vanco and Zosyn. He was admitted to the hospital for further evaluation and treatment. Since admission, the patient's white blood cell count remains elevated, but is trending down slowly. He has been evaluated by vascular surgery due to abnormal ABIs. On July 17, he underwent a right popliteal arthrectomy with angioplasty. So evaluated by the podiatry team. CTs of the bilateral lower extremities were negative for [place] lettuce or abscess, but did show significant soft tissue swelling consistent with cellulitis. Wound culture of the left foot was obtained that grew Proteus mirabilis, Klebsiella oxytoca, and Enterococcus faecalis. Currently, the patient is on IV vancomycin and IV Zosyn. We've been asked to evaluate and make further recommendations. My exam today, the patient is somewhat resistant to my exam and evaluation. He does endorse the history of 3 month history of significant bilateral foot pain and weakness. He is unsure how long the ulcers have been there. He denies any fevers or chills or rigors at home. [place] any headache or neck pain. He denies any congestion, earache, or sore throat. He denies any chest pain, shortness of breath, or cough. He denies any nausea, vomiting, diarrhea, or constipation. He is unsure when his last bowel movement was. He does report some difficulty starting his urine stream is states that sometimes painful when he attempts to void. He denies any abdominal pain and states his appetite is good. He denies any night sweats or weight loss. He reports significant pain to the bilateral feet with associated tingling, but denies numbness. He states that he has been off of his diabetic medications for about 2 years because he cannot afford them. The patient lives at home by himself and denies having any family that can help take care of him. CC: Ivett Musa MD Past Med Surg Social Fam HX - Past Medical History Attestation: Yes The following information was validated with the patient. Source: patient, old records reviewed, nursing notes reviewed Medical history: COPD, coronary artery disease, diabetes, hyperlipidemia, hypertension Psychiatric history: no psych history - Past Surgical History Surgical History: no surgical history - Social History Smoking Status: Former smoker Packs per day: 1.5 PPD - reports quitting 10 years ago Smokeless Tobacco Status: No Alcohol use: none Drug use: none Occupational status: retired Current living situation: Home - Independent Activity Level: Independent ambulation Recent Out of Country Travel Within the Last 8 Weeks: No Exposure or Possible Exposure to Illness During Travel: No - Family History Mother Race: Family Member Ethnicity: Non- Living Status: Age at : 70 Cause of : CAD Hx Family Cardiac Disorders: Yes (CAD) Hx Family Endocrine Disorder: Yes (DM) Father Race: Family Member Ethnicity: Non- Living Status: Age at : 60 Cause of : Emphysema Hx Family Cardiac Disorders: Yes (HD) Hx Family Respiratory Disorders: Yes (Emphysema) Brother Family Member Ethnicity: Non- Living Status: Still Living Hx Family Cardiac Disorders: Yes (HD, HTN) Hx Family Endocrine Disorder: Yes (DM) Sister Race: Family Member Ethnicity: Non- Living Status: Age at : 59 Cause of : DM complications Hx Family Endocrine Disorder: Yes (DM) Infectious Disease-CN:Meds No Known Home Drugs 07/15/17 [History] 3 Allergy/AdvReac Type Severity Reaction Status Date / Time No Known Allergies Allergy Verified 07/03/15 17:42 All systems: reviewed and no additional remarkable complaints except as stated Exam - Constitutional Vitals: Temp Pulse Resp BP Pulse Ox 98.0 F 76 20 134/84 96 07/19/17 07:45 07/19/17 07:45 07/19/17 07:45 07/19/17 07:45 07/19/17 07:45 General appearance: average body habitus, cooperative, no acute distress - Head Head exam: Present: atraumatic, normal inspection, normocephalic - Eye Eye exam: Present: EOMI, normal appearance, PERRL Pupils: Present: normal accommodation - ENT ENT exam: Present: mucous membranes moist - Neck Neck exam: Present: normal inspection - Respiratory Respiratory exam: Present: CTAB. Absent: rales, respiratory distress, rhonchi - Cardiovascular Cardiovascular exam: Present: RRR, +S1, +S2 - GI/Abdominal GI/Abdominal exam: Present: normal bowel sounds, soft. Absent: distended, tenderness - Extremities Exam Extremities exam: Present: pedal edema (1+ BLE), tenderness (bilateral feet). Absent: joint swelling Additional comments: Multiple scabbed ulcers noted to the dorsal aspect of bilateral feet. No marked erythema noted. Severe tenderness noted with palpation. Bilateral feet are warm to touch. DP pulses not palpable. Cap refill >5 seconds bilaterally. Patient refuses assessment of the left heel ulcer, but the dressing is C/D/I. - Back Exam Additional comments: Patient refuses exam. - Neurological Exam Neurological exam: Present: alert, oriented X3, no focal deficits - Psychiatric Psychiatric exam: Present: agitated, normal affect - Skin Skin exam: Present: dry, intact, normal color, warm Infectious Disease CN: Results - Labs CBC & Chem 7: 07/22/17 03:46 07/22/17 00:35 Cultures: Cultures 07/16/17 16:55 Wound Culture - Final Left Foot Proteus mirabilis Klebsiella oxytoca Enterococcus faecalis Serology: Serology 07/16/17 Range/Units 12:45 Urine Color Yellow (Yellow) Urine Clarity Cloudy A (Clear) Urine pH 5.5 (5.0-8.0) pH Units Ur Specific [place] 1.030 H (1.010-1.025) Urine Protein >=300 H (Neg-Trace) mg/dL Urine Glucose (UA) 250 H (Normal) mg/dL Urine Ketones Negative (Negative) mg/dL Urine Blood Negative (Negative) Urine Nitrite Negative (Negative) Urine Bilirubin Small H (Negative) Urine Urobilinogen Normal (Normal) mg/dL Ur Leukocyte Esterase Negative (Negative) Urine Microscopic RBC 5-15 H (0-3) per hpf Urine Microscopic WBC 5-15 H (0-3) per hpf Ur Squamous Epith Cells Many H (None-Few) per lpf Urine Bacteria None Seen (None-Few) per hpf Hyaline Casts None Seen (None-Few) per lpf Ur Culture Indicated? NO (NO) Consult Discharge Plan - Plan Referrals: Magda Garcia CNP [Partnered Physician] - 07/30/17 10:35 am Laureano Modi Jr, MD [Primary Care Provider] - Jack Bernard MD [Partnered Physician] - 08/07/17 1:00 pm (1 WEEK AFTER DISCHARGE) - Attending Attestation I examined this patient and my medical decision-making was reviewed with the Resident Physician. I agree with the documented findings, disposition and treatment plan as described except to the extent set forth below. This is an addendum to original report dictated by Rita Amaya CNP, please refer to Johnny note for full detail. Patient is 77-year-old gentleman who has extensive past medical history including diabetes, disease hyperlipidemia and hypertension admitted to the hospital with bilateral lower extremity cellulitis. We were consulted for antibiotic recommendations. Patient came in to the emergency department where he was worked up was noted to be afebrile tachycardic and had leukocytosis. Patient had been noted to have significant cellulitis bilateral lower extremities and was started on broad-spectrum antibiotics including vancomycin and Zosyn. We were asked to evaluate the patient and make further recommendations. Patient was also evaluated by vascular surgery and they did have significant peripheral vascular disease underwent a right popliteal arthrectomy and angioplasty. Patient was also seen by podiatry team and theyve been doing wound care. Patient had cultures obtained of the wound and it grew Proteus mirabilis, klebsiella oxytoca and ampicillin sensitive Enterococcus faecalis. I asked the patient he spoke me that he had the superficial ulcerated wounds 4 months. Patient will also and very poor hygiene. Rest of the physical exam and review of system is as above. Patient is doing otherwise well clinically. Still appears a little bit disheveled. Has good appetite. Denies any diarrhea. At this point agree with aggressive wound care, these lesions appear to be scarred ulcerated chronic. There is no obvious drainage or erythema or swelling at this point but I havent seen the patient on admission. I agree with continuing IV antibiotics for now until everything normalizes and then hopefully can switch him to orals. We can DC the vancomycin since the patient does not have MRSA believe Zosyn should be sufficient. Maybe upon discharge for this patient on oral antibiotics. Well discuss with the primary team. In the meantime monitor labs and for drug toxicity.
--- NOTE | 2017-07-19 10:21 | Internal Med Progress Note ---
Date of Encounter: 07/19/17 Time of Encounter: 10:19 - Assessment and plan (1) Acute kidney injury Current Visit: Yes Status: Acute Assessment and plan: Worsening serum creatinine; could be related to use of Vancomycin and Zosyn. start gentle IV hydration, stop IV Vancomycin and dose Zosyn per current renal function. Monitor serum creatinine closely. (2) Sepsis Current Visit: Yes Status: Acute Assessment and plan: Presented with tachycardia and leukocytosis, noted to have cellulitis and infected ulcers on bilateral lower extremities and feet. Improving. Resolved sepsis. Initial 1/2 blood cultures grow GNR, wound culture grows Proteus, Klebsiella and Enterococcus, ID consult appreciated- recommend Zosyn and d/c Vancomycin. F/up repeat blood cultures. Qualifiers: Sepsis type: sepsis due to unspecified organism Qualified Code(s): A41.9 - Sepsis, unspecified organism (3) Cellulitis Current Visit: Yes Status: Resolved Assessment and plan: Bilateral lower extremity cellulitis due to chronic vascular disease and ulcers. Continue IV vancomycin and Zosyn. Lower extremity elevation. Supportive care. Pain control with when necessary oral Percocet and IV morphine. Vascular surgery on board, underwent left common femoral artery angiogram, right popliteal atherectomy and angioplasty on 07/17/17. Podiatry on board, to continue with local wound care and IV antibiotics. Physical and occupational therapy evaluation pending. Patient has poor social support, community mental health social worker consulted for safe discharge. Probably would benefit from rehabilitation placement. Qualifiers: Site of cellulitis: extremity Site of cellulitis of extremity: lower extremity Laterality: unspecified laterality Qualified Code(s): L03.119 - Cellulitis of unspecified part of limb (4) Diabetic ulcer of both feet Current Visit: Yes Status: Chronic Assessment and plan: Podiatry on board, continue local wound care per Podiatry recommendations. Patient will need rehabilitation placement; community mental health social worker consulted. (5) Elevated troponin Current Visit: Yes Status: Resolved (6) Diabetes Current Visit: Yes Status: Chronic Assessment and plan: Patient is noted to have poorly controlled diabetes due to medical noncompliance. Continue Accu-Chek blood glucose monitoring with basal and sliding scale insulin regimen. Blood sugars noted to be better controlled today. Diabetic diet. nurses educator consult. Hemoglobin A1c noted to be 9.3%. 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 mellitus correction insulin use: without long term care pharmacist use Qualified Code( s): E11.621 - Type 2 diabetes mellitus with foot ulcer; L97.509 - Non-pressure chronic ulcer of other part of unspecified foot with unspecified severity; L97.509 - Non-pressure chronic ulcer of other part of unspecified foot with unspecified severity; L97.509 - Non-pressure chronic ulcer of other part of unspecified foot with unspecified severity; L97.509 - Non-pressure chronic ulcer of other part of unspecified foot with unspecified severity (7) HTN (hypertension) Current Visit: Yes Status: Chronic Assessment and plan: continue Norvasc and Metoprolol; BP noted to be better controlled today. low sodium diet; Qualifiers: Hypertension type: essential hypertension Qualified Code(s): I10 - Essential (primary) hypertension (8) HLD (hyperlipidemia) Current Visit: Yes Status: Chronic Qualifiers: Hyperlipidemia type: unspecified Qualified Code(s): E78.5 - Hyperlipidemia , unspecified (9) Atherosclerosis of [place] arteries of right leg with ulceration of other part of foot Current Visit: Yes Status: Chronic (10) Atherosclerosis of [place] arteries of left leg with ulceration of other part of foot Current Visit: Yes Status: Chronic - Subjective Interval history: Reports not feeling well today, asks what is wrong with him, explained to the best of my ability. No fever/chills but does report generalized weakness, poor appetite. Continues to have pain in both legs and feet. - Constitutional Vitals: Temp Pulse Resp BP Pulse Ox 98.0 F 76 20 134/84 96 07/19/17 07:45 07/19/17 07:45 07/19/17 07:45 07/19/17 07:45 07/19/17 07:45 General appearance: Present: cooperative, A&O X 3, answers questions appropriately - Respiratory Respiratory exam: Present: CTAB. Absent: accessory muscle use, rales, rhonchi, wheezes - Cardiovascular Cardiovascular exam: Present: RRR, +S1, +S2. Absent: diastolic murmur, gallop, rubs, systolic murmur - GI/Abdominal GI/Abdominal exam: Present: normal bowel sounds, soft, no peritoneal signs. Absent: distended, tenderness - Extremities Exam Extremities exam: Present: full ROM, pedal edema, warm, radial pulses palpable and symmetrical. Absent: calf tenderness, cyanotic Additional comments: B/L 1+ pitting pedal edema upto knees. Dry ulcers, with surrounding minimal erythema, vascular ulcers, poor peripheral pulses; left heel ulcer with Allevyn dressing; B/L feet in protective boots Internal Medicine: Result - Labs CBC & Chem 7: 07/19/17 03:07 07/19/17 03:07 Labs: Short CBC 07/18/17 07/19/17 Range/Units 14:22 03:07 WBC 18.4 H 17.1 H (4.3-11.1) K/mcL Hgb 9.2 L 8.7 L (12.9-16.9) g/dL Hct 30.2 L 28.3 L (37.5-50.1) % Plt Count 337 405 H (140-400) K/mcL Neutrophils # 16.2 H 13.3 H (1.6-8.9) K/mcL BMP 07/18/17 07/19/17 14:22 03:07 Sodium 138 140 Potassium 5.1 H 5.0 H Chloride 108 108 Carbon Dioxide 23 25 BUN 25 33 H Creatinine 1.48 H 1.55 H Glucose 202 H 143 H Calcium 8.6 8.6 Liver Function 07/19/17 Range/Units 03:07 Total Bilirubin 0.3 (0.2-1.2) mg/dL AST 26 (5-34) Units/L ALT 18 (0-55) Units/L Alkaline Phosphatase 158 H (38-126) Units/L Albumin 2.2 L (3.5-5.0) g/dL - ABG Interpretation ABG results: PT/INR, D-dimer PT 12.5 Seconds (9.4-12.1) H 07/16/17 01:45 Consult Discharge Plan - Plan Referrals: Magda Garcia CNP [Partnered Physician] - 07/24/17 10:30 am Laureano Modi Jr, MD [Primary Care Provider] - Jack Bernard MD [Partnered Physician] - (1 WEEK AFTER DISCHARGE)
[2017-07-19] MEDS: 0.9 % Sodium Chloride 1,000 ML IVC SCH ×2 (10:45→22:04)
[2017-07-19] MEDS ORDERED: Vancomycin 1,000 MG in D5% in Water 250 ML IVPB ONE (14:00)
[2017-07-19] MEDS: Insulin DETEMIR 100 UNIT/ML X5UNITS SQ SCH (21:35)
[2017-07-20] MEDS: *HR* Morphine 2 MG/ML SYRINGE IVP PRN ×4 (02:22→17:04)
[2017-07-20] MEDS: 0.9 % Sodium Chloride 1,000 ML IVC SCH ×2 (05:13→23:18)
[2017-07-20] MEDS: Piperacillin/Tazobactam 3.375 GM in D5% in Water (Mini-Bag+) 100 ML IVPB SCH ×3 (05:14→23:22)
[2017-07-20] MEDS: *HR* Heparin 5,000 UNIT/ML VIAL SQ SCH ×3 (05:17→23:18)
[2017-07-20 05:51] LABS: Basophils # 0.1 K/mcL (0.0-0.2); Basophils % 0.4 %; Eosinophils # 0.1 K/mcL (0.0-0.6); Eosinophils % 0.5 %; Immature Granulocytes % 0.7 % (0-4); Lymphocytes # 1.3 K/mcL (0.6-4.6); Mean Corpuscular Hemoglobin 28.4 pg (28.0-33.3); Mean Corpuscular Volume 91.5 fL (83.0-100.0); Mean Platelet Volume 10.5 fL (9.4-12.4); Monocytes # 2.2 K/mcL (0.0-1.3); Monocytes % 9.9 %; Neutrophils # 18.3 K/mcL (1.6-8.9); Platelet Count 416 K/mcL (140-400); Red Blood Count 3.17 M/mcL (4.19-5.50); Red Cell Distribution Width 16.5 % (11.5-14.5); Segmented Neutrophils % 82.5 %
[2017-07-20 06:04] LABS: Calcium 8.5 mg/dL (8.6-10.8); Magnesium 1.5 mg/dL (1.6-2.6); Potassium 4.2 mEq/L (3.5-4.5)
[2017-07-20] MEDS ORDERED: Aminoglycoside Consult 1 EACH MC ONE (07:43)
[2017-07-20] MEDS: Insulin LISPRO 300 UNITS/3 ML VIAL SQ SCH ×3 (08:25→17:00)
[2017-07-20] MEDS ORDERED: Magnesium Sulfate 1 GM in D5% in Water 100 ML IVPB ONE (08:29)
[2017-07-20] MEDS: Multivit/Ca/Min/Fe/FA 1 TAB TABLET PO SCH (08:47)
[2017-07-20] MEDS: amLODIPine 5 MG TABLET PO SCH (08:47)
[2017-07-20] MEDS: Ascorbic Acid 500 MG TABLET PO SCH ×2 (08:47→19:38)
[2017-07-20] MEDS: *HR* OxyCODONE Immed Rel 5 MG TABLET PO PRN ×2 (08:47→19:53)
[2017-07-20] MEDS: Zinc Sulfate 220 MG CAPSULE PO SCH (08:48)
[2017-07-20] MEDS: Nystatin Cream 15 GM TUBE TP SCH ×2 (09:32→19:44)
--- NOTE | 2017-07-20 11:44 | Vascular/[facility] Progress Note ---
Date of Encounter: 07/20/17 Time of Encounter: 11:10 - Assessment and plan (1) Atherosclerosis of [place] arteries of right leg with ulceration of other part of foot Current Visit: Yes Status: Chronic The patient has bilateral foot ulcerations. His ankle brachial index revealed evidence of severe bilateral lower extremity disease. His angiogram revealed a right popliteal artery occlusion and a left superficial femoral artery occlusion. He also has severe tibial disease. He underwent a right lower extremity atherectomy and angioplasty. His right dorsalis pedis signal is polyphasic. 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 He will require a left lower extremity revascularization when his condition improves. He currently has an elevated white blood cell count and his creatinine is also elevated. The patient will need cardiac clearance for possible surgery. Continue with ASA and Plavix. (2) Atherosclerosis of [place] arteries of left leg with ulceration of other part of foot Current Visit: Yes Status: Chronic (3) Diabetes Current Visit: Yes Status: Chronic 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 mellitus calibration checker insulin use: without calibration checker use Qualified Code( s): E11.621 - Type 2 diabetes mellitus with foot ulcer; L97.509 - Non-pressure chronic ulcer of other part of unspecified foot with unspecified severity; L97.509 - Non-pressure chronic ulcer of other part of unspecified foot with unspecified severity; L97.509 - Non-pressure chronic ulcer of other part of unspecified foot with unspecified severity; L97.509 - Non-pressure chronic ulcer of other part of unspecified foot with unspecified severity (4) HTN (hypertension) Current Visit: Yes Status: Chronic Qualifiers: Hypertension type: essential hypertension Qualified Code(s): I10 - Essential (primary) hypertension (5) HLD (hyperlipidemia) Current Visit: Yes Status: Chronic Qualifiers: Hyperlipidemia type: unspecified Qualified Code(s): E78.5 - Hyperlipidemia , unspecified - Subjective Interval history: The patient is resting comfortably today. He denies any fevers or chills. He denies chest pain or shortness of breath. - Physical Examination General: Present: Conversant, No Apparent Distress Cardiac: Present: Reg Rate and Rhythm Lungs: Present: Normal Breath Sounds Neuro: Present: Alert and responsive, Motor nerves grossly intact, Sensory nerves grossly intact Vascular: Present: Pulse, diminished (right dorsalis pedis signal is polyphasic , left dorsalis pedis signal is monophasic) Abdomen: Present: Soft, Non-tender Skin: Present: Wound/ulcer(s) (persistent bilateral lower extremity ulcers, no fluctuance noted) Results 07/20/17 05:36 07/20/17 05:36 Lab Results, Last 24 hours 07/20/17 07/20/17 05:36 05:36 WBC 22.2 H Hgb 9.0 L Hct 29.0 L Plt Count 416 H Sodium 142 Potassium 4.2 Chloride 110 H Carbon Dioxide 23 BUN 35 H Creatinine 1.47 H Glucose 80 Calcium 8.5 L Magnesium 1.5 L Consult Discharge Plan - Plan Referrals: Magda Garcia CNP [Partnered Physician] - 07/24/17 10:30 am Laureano Modi Jr, MD [Primary Care Provider] - Jack Bernard MD [Partnered Physician] - (1 WEEK AFTER DISCHARGE)
--- NOTE | 2017-07-20 13:40 | Internal Med Progress Note ---
Date of Encounter: 07/20/17 Time of Encounter: 13:34 ( ) - Assessment and plan (1) Bacteremia Current Visit: Yes Status: Acute Assessment and plan: Secondary to infected foot ulcers preliminary blood culture reports anaeorobic gram negative rods pt is on Zosyn, will add Vancomycin as per wound culture sensitivities worsening of leukocytosis noted, will be added Vancomycin continue IV fluids f/u repeat blood culture results ID on board (2) Cellulitis Current Visit: Yes Status: Resolved Assessment and plan: Bilateral lower extremity cellulitis due to chronic vascular disease and ulcers. Continue IV vancomycin and Zosyn. Lower extremity elevation. Supportive care. Pain control with when necessary oral Percocet and IV morphine. Increased morphine to 4mg IV q4h prn severe pain Vascular surgery on board, underwent left common femoral artery angiogram, right popliteal atherectomy and angioplasty on 07/17/17. Podiatry on board, to continue with local wound care and IV antibiotics. Physical and occupational therapy evaluation pending. Patient has poor social support, health and social care teacher consulted for safe discharge. Probably would benefit from rehabilitation placement. Qualifiers: Site of cellulitis: extremity Site of cellulitis of extremity: lower extremity Laterality: unspecified laterality Qualified Code(s): L03.119 - Cellulitis of unspecified part of limb (3) Diabetic ulcer of both feet Current Visit: Yes Status: Chronic Assessment and plan: Podiatry on board, continue local wound care per Podiatry recommendations. Patient will need rehabilitation placement; health and social care teacher consulted. (4) Sepsis Current Visit: Yes Status: Resolved Qualifiers: Sepsis type: sepsis due to unspecified organism Qualified Code(s): A41.9 - Sepsis, unspecified organism (5) Diabetes Current Visit: Yes Status: Chronic Assessment and plan: sliding scale insulin algorithm continue basal insulin coverage monitor FS and BG ADA diet 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 mellitus chief of staff insulin use: without chief of staff use Qualified Code( s): E11.621 - Type 2 diabetes mellitus with foot ulcer; L97.509 - Non-pressure chronic ulcer of other part of unspecified foot with unspecified severity; L97.509 - Non-pressure chronic ulcer of other part of unspecified foot with unspecified severity; L97.509 - Non-pressure chronic ulcer of other part of unspecified foot with unspecified severity; L97.509 - Non-pressure chronic ulcer of other part of unspecified foot with unspecified severity (6) HTN (hypertension) Current Visit: Yes Status: Chronic Assessment and plan: BP within acceptable range continue home meds added Hydralazine 10mg iV q6h prn sbp>160 Qualifiers: Hypertension type: essential hypertension Qualified Code(s): I10 - Essential (primary) hypertension (7) HLD (hyperlipidemia) Current Visit: Yes Status: Chronic Qualifiers: Hyperlipidemia type: unspecified Qualified Code(s): E78.5 - Hyperlipidemia , unspecified (8) DVT prophylaxis Current Visit: Yes Status: Acute Assessment and plan: Heparin SQ (9) Anemia Current Visit: Yes Status: Chronic Assessment and plan: H&H low but acceptable no acute bleeding reported at this time continue to monitor Qualifiers: Anemia type: unspecified type Qualified Code(s): D64.9 - Anemia, unspecified (10) Atherosclerosis of [place] arteries of right leg with ulceration of other part of foot Current Visit: Yes Status: Chronic (11) Atherosclerosis of [place] arteries of left leg with ulceration of other part of foot Current Visit: Yes Status: Chronic (12) Arterial leg ulcer Current Visit: Yes Status: Acute Assessment and plan: Pt will need vascular surgery once clinically stable (13) Acute kidney injury Current Visit: Yes Status: Acute Assessment and plan: Renal function mildly improved from previous day continue IV fluids will continue to closely monitor (14) Hypomagnesemia Current Visit: Yes Status: Acute Assessment and plan: Mg supplemented continue to monitor electrolytes and replace as needed - Subjective Interval history: Patient seen and examined. Resting in bed and reports of pain not controlled with the current pain medications. Pt is reported to have severe peripheral vascular disease and will require surgical intervention once he clinically improves. - Constitutional Vitals: Temp Pulse Resp BP Pulse Ox 97.9 F 82 20 133/67 100 07/20/17 12:16 07/20/17 12:16 07/20/17 12:16 07/20/17 12:16 07/20/17 12:16 General appearance: Present: cooperative, A&O X 3, answers questions appropriately - Head Head exam: Present: atraumatic, normocephalic - Eye Eye exam: Present: conjuntiva pink, sclera anicteric - Respiratory Respiratory exam: Absent: respiratory distress, wheezes - Cardiovascular Cardiovascular exam: Present: RRR, +S1, +S2. Absent: diastolic murmur, gallop, rubs, systolic murmur - GI/Abdominal GI/Abdominal exam: Present: normal bowel sounds, soft, no peritoneal signs. Absent: distended, tenderness - Extremities Exam Extremities exam: Present: pedal edema (b/l foot ulcers-dressing intact), warm, radial pulses palpable and symmetrical Internal Medicine: Result - Labs CBC & Chem 7: 07/20/17 05:36 07/20/17 05:36 Labs: Short CBC 07/20/17 Range/Units 05:36 WBC 22.2 H (4.3-11.1) K/mcL Hgb 9.0 L (12.9-16.9) g/dL Hct 29.0 L (37.5-50.1) % Plt Count 416 H (140-400) K/mcL Neutrophils # 18.3 H (1.6-8.9) K/mcL BMP 07/20/17 05:36 Sodium 142 Potassium 4.2 Chloride 110 H Carbon Dioxide 23 BUN 35 H Creatinine 1.47 H Glucose 80 Calcium 8.5 L - ABG Interpretation ABG results: PT/INR, D-dimer PT 12.5 Seconds (9.4-12.1) H 07/16/17 01:45 Consult Discharge Plan - Plan Referrals: Magda Garcia CNP [Partnered Physician] - 07/24/17 10:30 am Laureano Modi Jr, MD [Primary Care Provider] - Jack Bernard MD [Partnered Physician] - (1 WEEK AFTER DISCHARGE)
[2017-07-20] MEDS ORDERED: Vancomycin 1,000 MG in D5% in Water 250 ML IVPB SCH (14:00)
[2017-07-20] MEDS ORDERED: Vancomycin 1,250 MG in D5% in Water 250 ML IVPB ONE (15:00)
[2017-07-20] MEDS ORDERED: Vancomycin 1,250 MG in D5% in Water 250 ML IVPB SCH (15:00)
[2017-07-20] MEDS ORDERED: Vancomycin 1 EACH in EMPTY BAG 1 EACH IVPB SCH (15:00)
[2017-07-20] MEDS: Insulin DETEMIR 100 UNIT/ML X5UNITS SQ SCH (19:38)
[2017-07-21] MEDS: *HR* OxyCODONE Immed Rel 5 MG TABLET PO PRN ×2 (03:51→14:47)
[2017-07-21] MEDS: Insulin LISPRO 300 UNITS/3 ML VIAL SQ SCH ×5 (05:02→21:10)
[2017-07-21] MEDS: *HR* Heparin 5,000 UNIT/ML VIAL SQ SCH ×3 (06:58→21:05)
[2017-07-21] MEDS: Piperacillin/Tazobactam 3.375 GM in D5% in Water (Mini-Bag+) 100 ML IVPB SCH ×3 (07:00→21:06)
[2017-07-21 07:08] LABS: Calcium 8.7 mg/dL (8.6-10.8); Magnesium 1.8 mg/dL (1.6-2.6); Phosphorous 3.6 mg/dL (2.3-4.7); Potassium 4.5 mEq/L (3.5-4.5)
[2017-07-21 07:20] LABS: Basophils % 0.2 %
[2017-07-21 07:22] LABS: Basophils # 0.1 K/mcL (0.0-0.2); Eosinophils # 0.2 K/mcL (0.0-0.6); Eosinophils % 0.7 %; Hemoglobin 9.1 g/dL (12.9-16.9); Immature Granulocytes % 0.9 % (0-4); Lymphocytes % 3.3 %; Mean Corpuscular HGB Conc 30.3 g/dL (31.6-35.5); Mean Corpuscular Hemoglobin 28.2 pg (28.0-33.3); Mean Corpuscular Volume 92.9 fL (83.0-100.0); Mean Platelet Volume 10.9 fL (9.4-12.4); Monocytes # 2.2 K/mcL (0.0-1.3); Monocytes % 8.4 %; Platelet Count 407 K/mcL (140-400); Red Blood Count 3.23 M/mcL (4.19-5.50); Red Cell Distribution Width 16.9 % (11.5-14.5); Segmented Neutrophils % 86.5 %
[2017-07-21 07:29] LABS: Lymphocytes # 0.9 K/mcL (0.6-4.6); Neutrophils # 22.2 K/mcL (1.6-8.9)
[2017-07-21] MEDS: Multivit/Ca/Min/Fe/FA 1 TAB TABLET PO SCH (08:54)
[2017-07-21] MEDS: amLODIPine 5 MG TABLET PO SCH (08:54)
[2017-07-21] MEDS: Ascorbic Acid 500 MG TABLET PO SCH ×2 (08:54→21:07)
[2017-07-21] MEDS: Zinc Sulfate 220 MG CAPSULE PO SCH (08:54)
[2017-07-21] MEDS: Nystatin Cream 15 GM TUBE TP SCH ×2 (08:55→21:11)
--- NOTE | 2017-07-21 10:26 | Internal Med Progress Note ---
Date of Encounter: 07/21/17 Time of Encounter: 10:15 - Assessment and plan (1) Acute kidney injury Current Visit: Yes Status: Acute Assessment and plan: Nonoliguric. Serum creatinine continues to be around 1.55, likely due to use of antibiotics- Vancomycin and Zosyn. Will discontinue IV fluids at this time, to avoid volume overload. Hold Vancomycin for now. Monitor closely. (2) Sepsis Current Visit: Yes Status: Resolved Assessment and plan: Presented with leukocytosis, tachycardia due to B/L ischemic leg ulcers and mild cellulitis. Persistent leukocytosis, likely reactive? but improved cellulitis. Antibiotics as below. Qualifiers: Sepsis type: sepsis due to unspecified organism Qualified Code(s): A41.9 - Sepsis, unspecified organism (3) Cellulitis Current Visit: Yes Status: Resolved Assessment and plan: B/L leg cellulitis and vascular ulcers. Improved cellulitis. Wound culture grows Proteus, Klebsiella, Enterococcus; 1/2 blood cultures grows anaerobic GNR , likely contaminant. Repeat blood cultures from 07/18 are negative. Continue IV Zosyn. ID on board. Podiatry on board for left heel ulcer, unclear if this needs surgical debridement, will d/w Podiatry in light of worsening leukocytosis. Qualifiers: Site of cellulitis: extremity Site of cellulitis of extremity: lower extremity Laterality: unspecified laterality Qualified Code(s): L03.119 - Cellulitis of unspecified part of limb (4) Diabetic ulcer of both feet Current Visit: Yes Status: Chronic Assessment and plan: Local wound care per Podiatry and vascular surgery. Pain control with PRN IV Morphine and PO Percocet. (5) Elevated troponin Current Visit: Yes Status: Resolved (6) Diabetes Current Visit: Yes Status: Chronic Assessment and plan: Blood sugars now improving. Continue basal bolus insulin regimen. Diabetic diet. H/o- medical noncompliance with poor outpatient followup. 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 gauger supervisor insulin use: without detention use Qualified Code( s): E11.621 - Type 2 diabetes mellitus with foot ulcer; L97.509 - Non-pressure chronic ulcer of other part of unspecified foot with unspecified severity; L97.509 - Non-pressure chronic ulcer of other part of unspecified foot with unspecified severity; L97.509 - Non-pressure chronic ulcer of other part of unspecified foot with unspecified severity; L97.509 - Non-pressure chronic ulcer of other part of unspecified foot with unspecified severity (7) HTN (hypertension) Current Visit: Yes Status: Chronic Assessment and plan: BP better controlled. Continue current regimen. Qualifiers: Hypertension type: essential hypertension Qualified Code(s): I10 - Essential (primary) hypertension (8) HLD (hyperlipidemia) Current Visit: Yes Status: Chronic Qualifiers: Hyperlipidemia type: unspecified Qualified Code(s): E78.5 - Hyperlipidemia , unspecified (9) Atherosclerosis of [place] arteries of right leg with ulceration of other part of foot Current Visit: Yes Status: Chronic Assessment and plan: Vascular surgery on board. Patient has significant vascular disease in B/L LE. Underwent right popliteal angioplasty and atherectomy. Plan for left leg revascularization procedure. Will get Echocardiogram in light of mild Troponin leak at admission. Has no previous cardiac history. (10) Atherosclerosis of [place] arteries of left leg with ulceration of other part of foot Current Visit: Yes Status: Chronic - Subjective Interval history: Irritable today as his room temperature cannot be adjusted and TV volume cannot be adjusted and nothing works in his room. Denies fever/chills, chest pain, shortness of breath, nausea/vomiting. Continues to have severe pain both his feet and legs. - Constitutional Vitals: Temp Pulse Resp BP Pulse Ox 98 F 91 18 151/80 97 07/21/17 08:57 07/21/17 08:57 07/21/17 08:57 07/21/17 08:57 07/21/17 08:57 General appearance: Present: cooperative, A&O X 3, answers questions appropriately - Respiratory Respiratory exam: Present: CTAB. Absent: accessory muscle use, rales, rhonchi, wheezes - Cardiovascular Cardiovascular exam: Present: RRR, +S1, +S2. Absent: diastolic murmur, gallop, rubs, systolic murmur - GI/Abdominal GI/Abdominal exam: Present: normal bowel sounds, soft, no peritoneal signs. Absent: distended, tenderness - Extremities Exam Extremities exam: Present: pedal edema (1+ pedal edema B/L), warm, radial pulses palpable and symmetrical. Absent: calf tenderness, cyanotic Additional comments: multiple dry scabbed ulcers, vascular, over B/L lower legs; left heel ulcer, patient does not allow to examine; B/L feet in protective boots - Neurological Exam Neurological exam: Present: CN II-XII intact, oriented X3, no focal deficits. Absent: pronater drift, facial droop, speech deficit Internal Medicine: Result - Labs CBC & Chem 7: 07/21/17 06:31 07/21/17 06:31 Labs: Short CBC 07/21/17 Range/Units 06:31 WBC 25.7 H (4.3-11.1) K/mcL Hgb 9.1 L (12.9-16.9) g/dL Hct 30.0 L (37.5-50.1) % Plt Count 407 H (140-400) K/mcL Neutrophils # 22.2 H (1.6-8.9) K/mcL BMP 07/21/17 06:31 Sodium 140 Potassium 4.5 Chloride 109 Carbon Dioxide 25 BUN 36 H Creatinine 1.55 H Glucose 124 H Calcium 8.7 - ABG Interpretation ABG results: PT/INR, D-dimer PT 12.5 Seconds (9.4-12.1) H 07/16/17 01:45 Consult Discharge Plan - Plan Referrals: Magda Garcia CNP [Partnered Physician] - 07/24/17 10:30 am Laureano Modi Jr, MD [Primary Care Provider] - Jack Bernard MD [Partnered Physician] - (1 WEEK AFTER DISCHARGE)
--- NOTE | 2017-07-21 14:57 | Vascular/[facility] Progress Note ---
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 His ankle brachial index revealed evidence of severe bilateral lower extremity disease. His angiogram revealed a right popliteal artery occlusion and a left superficial femoral artery occlusion. He also has severe tibial disease. He underwent a right lower extremity atherectomy and angioplasty. His right dorsalis pedis signal is polyphasic. 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 He will require a left lower extremity revascularization when his condition improves. He currently has an elevated white blood cell count and his creatinine is also elevated. The patient will need cardiac clearance for possible surgery. Continue with ASA and Plavix. Continue with antibiotics and local wound care. (2) Atherosclerosis of [place] arteries of left leg with ulceration of other part of foot Current Visit: Yes Status: Chronic (3) Diabetes Current Visit: Yes Status: Chronic 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 mellitus intermodal truck driver insulin use: without detention use Qualified Code( s): E11.621 - Type 2 diabetes mellitus with foot ulcer; L97.509 - Non-pressure chronic ulcer of other part of unspecified foot with unspecified severity; L97.509 - Non-pressure chronic ulcer of other part of unspecified foot with unspecified severity; L97.509 - Non-pressure chronic ulcer of other part of unspecified foot with unspecified severity; L97.509 - Non-pressure chronic ulcer of other part of unspecified foot with unspecified severity (4) HTN (hypertension) Current Visit: Yes Status: Chronic Qualifiers: Hypertension type: essential hypertension Qualified Code(s): I10 - Essential (primary) hypertension (5) HLD (hyperlipidemia) Current Visit: Yes Status: Chronic Qualifiers: Hyperlipidemia type: unspecified Qualified Code(s): E78.5 - Hyperlipidemia , unspecified (6) Acute kidney injury Current Visit: Yes Status: Acute - Subjective Interval history: The patient is resting comfortably today. He denies any fevers or chills. He denies chest pain or shortness of breath. Vital Signs, Last 4 Hours Temp Pulse Resp BP Pulse Ox 10/08/17 12:44 98.1 F 75 16 139/76 94 - Physical Examination General: Present: No Apparent Distress HEENT: Present: Pupils equal Cardiac: Present: Reg Rate and Rhythm Lungs: Present: Normal Breath Sounds, No Wheeze, Rales, Rhonchi Neuro: Present: Alert and responsive, Motor nerves grossly intact, Sensory nerves grossly intact Vascular: Present: Normal capillary refill, Pulse, diminished (left pedal signals remain biphasic), Pulse, normal (right dorsalis pedis is polyphasic), Edema (trace bilateral lower extremity edema) Abdomen: Present: Soft Skin: Present: Wound/ulcer(s) (Ulcers present on bilateral lower extremities, no purulence noted, mild erythema present) Results 07/23/17 04:36 07/23/17 04:36 Lab Results, Last 24 hours 07/21/17 07/21/17 06:31 06:31 WBC 25.7 H Hgb 9.1 L Hct 30.0 L Plt Count 407 H Sodium 140 Potassium 4.5 Chloride 109 Carbon Dioxide 25 BUN 36 H Creatinine 1.55 H Glucose 124 H Calcium 8.7 Magnesium 1.8 Consult Discharge Plan - Plan Referrals: Magda Garcia CNP [Partnered Physician] - 07/30/17 10:35 am Laureano Modi Jr, MD [Primary Care Provider] - Jack Bernard MD [Partnered Physician] - 08/07/17 1:00 pm (1 WEEK AFTER DISCHARGE)
[2017-07-21] MEDS: Insulin DETEMIR 100 UNIT/ML X5UNITS SQ SCH (21:11)
[2017-07-21] MEDS: *HR* Morphine 2 MG/ML SYRINGE IVP PRN (21:54)
[2017-07-22 00:57] LABS: Calcium 8.4 mg/dL (8.6-10.8); Potassium 4.8 mEq/L (3.5-4.5)
[2017-07-22] MEDS: *HR* OxyCODONE Immed Rel 5 MG TABLET PO PRN ×3 (01:56→21:56)
[2017-07-22 04:13] LABS: Basophils % 0.2 %; Eosinophils % 0.1 %; Hematocrit 28.6 % (37.5-50.1)
[2017-07-22 04:14] LABS: Basophils # 0.1 K/mcL (0.0-0.2); Hemoglobin 8.9 g/dL (12.9-16.9); Lymphocytes # 0.9 K/mcL (0.6-4.6); Lymphocytes % 3.5 %; Mean Corpuscular HGB Conc 31.1 g/dL (31.6-35.5); Mean Corpuscular Hemoglobin 28.6 pg (28.0-33.3); Mean Platelet Volume 10.7 fL (9.4-12.4); Monocytes # 1.4 K/mcL (0.0-1.3); Monocytes % 5.3 %; Platelet Count 391 K/mcL (140-400); Red Blood Count 3.11 M/mcL (4.19-5.50); Red Cell Distribution Width 16.8 % (11.5-14.5); Segmented Neutrophils % 89.9 %
[2017-07-22 04:21] LABS: Neutrophils # 23.2 K/mcL (1.6-8.9)
[2017-07-22 04:48] LABS: Platelet Estimate Normal (Normal)
[2017-07-22] MEDS: *HR* Heparin 5,000 UNIT/ML VIAL SQ SCH ×3 (06:24→22:50)
[2017-07-22] MEDS: Piperacillin/Tazobactam 3.375 GM in D5% in Water (Mini-Bag+) 100 ML IVPB SCH ×3 (06:24→22:50)
[2017-07-22] MEDS: Nystatin Cream 15 GM TUBE TP SCH ×2 (07:55→21:54)
[2017-07-22] MEDS: Insulin LISPRO 300 UNITS/3 ML VIAL SQ SCH ×6 (07:56→21:48)
[2017-07-22] MEDS: *HR* Morphine 2 MG/ML SYRINGE IVP PRN ×3 (07:56→19:41)
[2017-07-22] MEDS: Multivit/Ca/Min/Fe/FA 1 TAB TABLET PO SCH (07:57)
[2017-07-22] MEDS: Zinc Sulfate 220 MG CAPSULE PO SCH (07:57)
[2017-07-22] MEDS: Ascorbic Acid 500 MG TABLET PO SCH ×2 (07:57→19:41)
[2017-07-22] MEDS: amLODIPine 5 MG TABLET PO SCH (08:03)
--- NOTE | 2017-07-22 09:15 | Internal Med Progress Note ---
Date of Encounter: 07/22/17 Time of Encounter: 09:12 - Assessment and plan (1) Acute kidney injury Current Visit: Yes Status: Acute Assessment and plan: Nonoliguric. Serum creatinine slightly improved to 1.4. YUMIKO, likely due to use of antibiotics- Vancomycin and Zosyn. Monitor closely. (2) Sepsis Current Visit: Yes Status: Resolved Assessment and plan: Presented with leukocytosis, tachycardia due to B/L ischemic leg ulcers and mild cellulitis. Persistent leukocytosis, but improved cellulitis. Antibiotics as below. Qualifiers: Sepsis type: sepsis due to unspecified organism Qualified Code(s): A41.9 - Sepsis, unspecified organism (3) Cellulitis Current Visit: Yes Status: Resolved Assessment and plan: B/L leg cellulitis and vascular ulcers. Improved cellulitis. Wound culture grows Proteus, Klebsiella, Enterococcus; 1/2 blood cultures grows anaerobic GNR , likely contaminant. Repeat blood cultures from 07/18 are negative. Continue IV Zosyn. ID on board. Podiatry on board for left heel ulcer, unclear if this needs surgical debridement,. Will check ESR, CRP, MRI left foot for underlying osteomyelitis due to persistent leukocytosis. Qualifiers: Site of cellulitis: extremity Site of cellulitis of extremity: lower extremity Laterality: unspecified laterality Qualified Code(s): L03.119 - Cellulitis of unspecified part of limb (4) Diabetic ulcer of both feet Current Visit: Yes Status: Chronic Assessment and plan: Local wound care per Podiatry and vascular surgery. Pain control with PRN IV Morphine and PO Percocet. (5) Elevated troponin Current Visit: Yes Status: Resolved (6) Diabetes Current Visit: Yes Status: Chronic Assessment and plan: Blood sugars continue to be elevated intermittently. Will increase basal and SSI , add nutritional insulin. Imperative for tight blood sugar control due to non- healing vascular wounds. Diabetic diet. H/o- medical noncompliance with poor outpatient followup. 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 mellitus long-term insulin use: without termite control representative use Qualified Code( s): E11.621 - Type 2 diabetes mellitus with foot ulcer; L97.509 - Non-pressure chronic ulcer of other part of unspecified foot with unspecified severity; L97.509 - Non-pressure chronic ulcer of other part of unspecified foot with unspecified severity; L97.509 - Non-pressure chronic ulcer of other part of unspecified foot with unspecified severity; L97.509 - Non-pressure chronic ulcer of other part of unspecified foot with unspecified severity (7) HTN (hypertension) Current Visit: Yes Status: Chronic Assessment and plan: BP noted to be somewhat uncontrolled. Will change beta bro to Coreg due to systolic dysfunction noted on Echocardiogram, and start Imdur; continue Norvasc and monitor BP closely. 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 Patient has significant vascular disease in B/L LE. Underwent right popliteal angioplasty and atherectomy. Plan for left leg revascularization procedure. Echocardiogram shows significant systolic dysfunction with EF 35-40%. Cardiology consulted for clearance and further evaluation, like [facility]. (10) Atherosclerosis of [place] arteries of left leg with ulceration of other part of foot Current Visit: Yes Status: Chronic (11) CHF (congestive heart failure) Current Visit: Yes Status: Chronic Assessment and plan: Patient has undiagnosed chronic systolic and diastolic CHF. Will start Coreg and Imdur and avoid diuretics and ACEI/ARB for now due to YUMIKO and hyperkalemia. Cardiology consulted for further evaluation. Fluid restriction and urine output monitoring. Telemetry monitoring. Qualifiers: Congestive heart failure type: combined Congestive heart failure chronicity : chronic Qualified Code(s): I50.42 - Chronic combined systolic (congestive) and diastolic (congestive) heart failure - Subjective Interval history: Upset that we are giving him orange juice and thats what is increasing his blood sugars. No chest pain, dyspnea, palpitations but continues to have leg and feet pains; bedbound at this time. - Constitutional Vitals: Temp Pulse Resp BP Pulse Ox 97.9 F 89 20 167/93 95 07/22/17 07:15 07/22/17 07:15 07/22/17 07:15 07/22/17 07:15 07/22/17 07:15 General appearance: Present: cooperative, A&O X 3, answers questions appropriately - Respiratory Respiratory exam: Present: CTAB. Absent: accessory muscle use, rales, rhonchi, wheezes - Cardiovascular Cardiovascular exam: Present: RRR, +S1, +S2. Absent: diastolic murmur, gallop, rubs, systolic murmur - GI/Abdominal GI/Abdominal exam: Present: normal bowel sounds, soft, no peritoneal signs. Absent: distended, tenderness - Extremities Exam Extremities exam: Present: warm, radial pulses palpable and symmetrical. Absent : calf tenderness, cyanotic, pedal edema Additional comments: stable dry vascular ulcers B/L leg and feet Left heel ulcer in dressing B/L feet in protective styles boots - Neurological Exam Neurological exam: Present: CN II-XII intact, oriented X3, no focal deficits. Absent: pronater drift, facial droop, speech deficit Internal Medicine: Result - Labs CBC & Chem 7: 07/22/17 03:46 07/22/17 00:35 Labs: Short CBC 07/22/17 Range/Units 03:46 WBC 25.8 H (4.3-11.1) K/mcL Hgb 8.9 L (12.9-16.9) g/dL Hct 28.6 L (37.5-50.1) % Plt Count 391 (140-400) K/mcL Neutrophils # 23.2 H (1.6-8.9) K/mcL BMP 07/22/17 00:35 Sodium 137 Potassium 4.8 H Chloride 109 Carbon Dioxide 20 BUN 38 H Creatinine 1.41 H Glucose 162 H Calcium 8.4 L - ABG Interpretation ABG results: PT/INR, D-dimer PT 12.5 Seconds (9.4-12.1) H 07/16/17 01:45 - Impressions Impressions Echocardiogram 07/21/17 10:00 Impressions: LVEF 35-40%. Moderate global and segmental left ventricular systolic dysfunction. Moderate pulmonary hypertension. Moderate-severe pulmonic regurgitation. Diastolic dysfunction, NOS Left Ventricular Wall Motion: Rest Echo Findings The apex, apical inferior, mid inferior, basal inferior, apical anterior, mid anterior, basal anterior, apical septal, mid inferior septal, basal inferior septal, apical lateral, mid anterior lateral, basal anterior lateral, mid anterior septal, mid inferior lateral, basal anterior septal and basal inferior lateral renae were hypokinetic. Findings: Study Quality * Technically adequate exam. Right Ventricle * Normal right ventricular structure and function. Right Atrium * Normal right atrial size. Aortic Valve * Trileaflet aortic valve with normal function. Interatrial Septum * No evidence of PFO by color Doppler. Aorta * Normally sized aortic root. Pericardium * The pericardium appears normal. Mitral Valve * Normal mitral valve structure. * Trace mitral regurgitation. * No mitral stenosis. Left Atrium * Mildly dilated left atrium. Tricuspid Valve * No tricuspid stenosis. * No tricuspid regurgitation. * No evidence of pulmonary hypertension. * Estimated RVSP is 41 mmHg. * Estimated RA pressure is 10-15 mmHg. * Moderate pulmonary hypertension. Pulmonic Valve * No pulmonic stenosis. * Moderate-severe pulmonic regurgitation. Pleural Effusion * Moderate pleural effusion. IVC * The IVC is dilated. * < 50% respiratory change. ECG Findings * Sinus rhythm with BBB. Left Ventricle * LVEF 35-40%. * Moderate global and segmental left ventricular systolic dysfunction. * Diastolic dysfunction, NOS Consult Discharge Plan - Plan Referrals: Magda Garcia CNP [Partnered Physician] - 07/30/17 10:35 am Laureano Modi Jr, MD [Primary Care Provider] - Jack Bernard MD [Partnered Physician] - 08/07/17 1:00 pm (1 WEEK AFTER DISCHARGE)
--- NOTE | 2017-07-22 10:55 | Infectious Disease Progress No ---
Date of Encounter: 07/22/17 Time of Encounter: 10:52 - Assessment and Plan (1) Sepsis Current Visit: Yes Status: Resolved The patient had two SIRS criteria on admission. Likely secondary to infected arterial ulcers/cellulitis. Improved. Tachycardia has resolved. The patient's WBC is back up, etiology unclear, but concern for possible infectious process in the left heel. Blood cultures drawn 07/15/17 are positive 1/2 sets for anaerobic GNR. Repeat blood cultures drawn 07/18/17 are NGTD x 2 sets. Qualifiers: Sepsis type: sepsis due to unspecified organism Qualified Code(s): A41.9 - Sepsis, unspecified organism (2) Bacteremia Current Visit: Yes Status: Acute Causative organism unclear. Blood cultures drawn 07/15/17 are positive 1/2 sets for anaerobic GNR. Most likely a contaminant given that only 1/2 sets is positive. Repeat blood cultures drawn 07/18/17 are NGTD x 2 sets. (3) Cellulitis Current Visit: Yes Status: Resolved Location: BLE per the medical record. Appears improved as there are no signs of cellulitis at this time. Causative organism unclear, but likely polymicrobial. Likely secondary to infected arterial ulcers. Wound culture grew P. mirabilis, K. oxytoca, and E. faecalis. CT of the BLE negative for OM or abscess, but the patient's WBC continues to markedly elevated. Podiatry consulted and following. Continue wound care per their recommendations. Check ESR and CRP. Consider MRI of the left foot to further evaluate the ulcer. Continue Zosyn 3.375 grams IV Q8H. Duration of treatment depends on the clinical picture. Monitor renal function and dose-adjust antibiotics. Qualifiers: Site of cellulitis: extremity Site of cellulitis of extremity: lower extremity Laterality: unspecified laterality Qualified Code(s): L03.119 - Cellulitis of unspecified part of limb (4) Acute kidney injury Current Visit: Yes Status: Acute Likely LUCY. Stable. Continue to trend. Dose-adjust antibiotics. Avoid nephrotoxins as able. (5) Arterial leg ulcer Current Visit: Yes Status: Acute Location: Bilateral feet. ABIs completed 07/16/17 showed moderate disease in the RLE and severe disease in the LLE. Vascular surgery consulted. Status post angiogram with right popliteal arthrectomy with angioplasty 07/17/[address] Bernard. The patient will likely require surgical intervention on the LLE at a later date. Continue wound care per podiatry's recommendations. (6) Weakness generalized Current Visit: Yes Status: Acute (7) Elevated troponin Current Visit: Yes Status: Resolved Likely secondary to demand ischemia. Management per the primary team. (8) Atherosclerosis of [place] arteries of right leg with ulceration of other part of foot Current Visit: Yes Status: Chronic CLIFF showed moderate disease. Vascular surgery consulted and following. Status post RLE popliteal arthrectomy with balloon angioplasty 07/17/[address] Bernard. (9) Atherosclerosis of [place] arteries of left leg with ulceration of other part of foot Current Visit: Yes Status: Chronic CLIFF showed severe LLE disease. Vascular surgery consulted and following. Per Vascular, will likely require further LLE intervention/surgery at a later date. (10) Pressure ulcer of left heel, unstageable Current Visit: Yes Status: Acute Likely multifactorial: pressure ulcer + arterial insufficiency. Patient refuses exam. Podiatry consulted and following. CT scan/XR negative for OM. Per nursing, the ulcer is to the bone. Check inflammatory markers. Consider MRI of the left foot to further evaluate. Continue wound care per podiatry. Continue antibiotics as above. Discussed with Podiatry. (11) Anemia Current Visit: Yes Status: Chronic Etiology unclear. No acute bleeding noted on exam. Further workup and management per the primary team. Qualifiers: Anemia type: unspecified type Qualified Code(s): D64.9 - Anemia, unspecified (12) Diabetes Current Visit: Yes Status: Chronic Patient reports he has not been taking his diabetic medications for two years. HgbA1C 9%. Recommend aggressive glucose monitoring and control to promote wound healing and prevent re-infection. 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 No acute events noted overnight. Patient states he doesn't feel well. Denies fevers, chills, or rigors. Denies chest pain, but does report some mild shortness of breath and a non-productive cough. Denies nausea, vomiting, diarrhea or abdominal pain. States he thinks his last BM was yesterday. Reports urinary incontinence, but denies dysuria or urinary frequency. Complains of severe pain in the bilateral feet. Refuses to let me fully assess his feet due to the pain. Infect Dis PN-Objective Data - Labs CBC & Chem 7: 07/22/17 03:46 07/22/17 00:35 Labs: Laboratory Results - last 24 hr 07/21/17 07/21/17 07/21/17 12:00 14:05 17:02 WBC RBC Hgb Hct MCV MCH MCHC RDW Plt Count MPV Immature Gran % Seg Neutrophils % Lymphocytes % Monocytes % Eosinophils % Basophils % Neutrophils # Lymphocytes # Monocytes # Eosinophils # Basophils # Platelet Estimate Sodium Potassium Chloride Carbon Dioxide BUN Creatinine Est GFR ( Amer) Est GFR (Non-Af Amer) BUN/Creatinine Ratio Glucose POC Glucose 197 H 188 H Calculated Osmolality Calcium Vancomycin Trough 14.2 Specimen Rejected 07/21/17 07/22/17 07/22/17 21:08 00:35 00:35 WBC RBC Hgb Hct MCV MCH MCHC RDW Plt Count MPV Immature Gran % Seg Neutrophils % Lymphocytes % Monocytes % Eosinophils % Basophils % Neutrophils # Lymphocytes # Monocytes # Eosinophils # Basophils # Platelet Estimate Sodium 137 Potassium 4.8 H Chloride 109 Carbon Dioxide 20 BUN 38 H Creatinine 1.41 H Est GFR ( Amer) 59 L Est GFR (Non-Af Amer) 49 L BUN/Creatinine Ratio 27 H Glucose 162 H POC Glucose 84 Calculated Osmolality 297 Calcium 8.4 L Vancomycin Trough Specimen Rejected Clotted 07/22/17 03:46 WBC 25.8 H RBC 3.11 L Hgb 8.9 L Hct 28.6 L MCV 92.0 MCH 28.6 MCHC 31.1 L RDW 16.8 H Plt Count 391 MPV 10.7 Immature Gran % 1.0 Seg Neutrophils % 89.9 Lymphocytes % 3.5 Monocytes % 5.3 Eosinophils % 0.1 Basophils % 0.2 Neutrophils # 23.2 H Lymphocytes # 0.9 Monocytes # 1.4 H Eosinophils # 0.0 Basophils # 0.1 Platelet Estimate Normal Sodium Potassium Chloride Carbon Dioxide BUN Creatinine Est GFR ( Amer) Est GFR (Non-Af Amer) BUN/Creatinine Ratio Glucose POC Glucose Calculated Osmolality Calcium Vancomycin Trough Specimen Rejected Cultures: Cultures 07/18/17 16:31 Blood Culture - Preliminary Peripheral Venipuncture No growth. 07/18/17 16:31 Blood Culture - Preliminary Peripheral Venipuncture No growth. 07/16/17 16:55 Wound Culture - Final Left Foot Proteus mirabilis Klebsiella oxytoca Enterococcus faecalis Serology 07/16/17 Range/Units 12:45 Urine Color Yellow (Yellow) Urine Clarity Cloudy A (Clear) Urine pH 5.5 (5.0-8.0) pH Units Ur Specific [place] 1.030 H (1.010-1.025) Urine Protein >=300 H (Neg-Trace) mg/dL Urine Glucose (UA) 250 H (Normal) mg/dL Urine Ketones Negative (Negative) mg/dL Urine Blood Negative (Negative) Urine Nitrite Negative (Negative) Urine Bilirubin Small H (Negative) Urine Urobilinogen Normal (Normal) mg/dL Ur Leukocyte Esterase Negative (Negative) Urine Microscopic RBC 5-15 H (0-3) per hpf Urine Microscopic WBC 5-15 H (0-3) per hpf Ur Squamous Epith Cells Many H (None-Few) per lpf Urine Bacteria None Seen (None-Few) per hpf Hyaline Casts None Seen (None-Few) per lpf Ur Culture Indicated? NO (NO) - Impressions Impressions Echocardiogram 07/21/17 10:00 Impressions: LVEF 35-40%. Moderate global and segmental left ventricular systolic dysfunction. Moderate pulmonary hypertension. Moderate-severe pulmonic regurgitation. Diastolic dysfunction, NOS Left Ventricular Wall Motion: Rest Echo Findings The apex, apical inferior, mid inferior, basal inferior, apical anterior, mid anterior, basal anterior, apical septal, mid inferior septal, basal inferior septal, apical lateral, mid anterior lateral, basal anterior lateral, mid anterior septal, mid inferior lateral, basal anterior septal and basal inferior lateral renae were hypokinetic. Findings: Study Quality * Technically adequate exam. Right Ventricle * Normal right ventricular structure and function. Right Atrium * Normal right atrial size. Aortic Valve * Trileaflet aortic valve with normal function. Interatrial Septum * No evidence of PFO by color Doppler. Aorta * Normally sized aortic root. Pericardium * The pericardium appears normal. Mitral Valve * Normal mitral valve structure. * Trace mitral regurgitation. * No mitral stenosis. Left Atrium * Mildly dilated left atrium. Tricuspid Valve * No tricuspid stenosis. * No tricuspid regurgitation. * No evidence of pulmonary hypertension. * Estimated RVSP is 41 mmHg. * Estimated RA pressure is 10-15 mmHg. * Moderate pulmonary hypertension. Pulmonic Valve * No pulmonic stenosis. * Moderate-severe pulmonic regurgitation. Pleural Effusion * Moderate pleural effusion. IVC * The IVC is dilated. * < 50% respiratory change. ECG Findings * Sinus rhythm with BBB. Left Ventricle * LVEF 35-40%. * Moderate global and segmental left ventricular systolic dysfunction. * Diastolic dysfunction, NOS Exam - Constitutional Vitals: Temp Pulse Resp BP Pulse Ox 97.9 F 89 16 167/93 95 07/22/17 08:00 07/22/17 08:00 07/22/17 08:00 07/22/17 08:00 07/22/17 07:15 General appearance: average body habitus, cooperative, no acute distress - Head Head exam: Present: atraumatic, normal inspection, normocephalic - Eye Eye exam: Present: EOMI, normal appearance, PERRL Pupils: Present: normal accommodation - ENT ENT exam: Present: mucous membranes moist - Neck Neck exam: Present: normal inspection - Respiratory Respiratory exam: Present: CTAB. Absent: rales, respiratory distress, rhonchi, wheezes - Cardiovascular Cardiovascular exam: Present: RRR, +S1, +S2 - GI/Abdominal GI/Abdominal exam: Present: normal bowel sounds, soft. Absent: distended, tenderness - Extremities Exam Extremities exam: Present: pedal edema (1+ BLE knees to feet), tenderness ( bilateral feet) Additional comments: Scabs noted to the dorsal aspect of bilateral feet. No drainage or erythema noted. Patient refuses to let me remove the left foot dressing or assess the heels. - Neurological Exam Neurological exam: Present: alert, oriented X3, no focal deficits - Psychiatric Psychiatric exam: Present: agitated, normal affect - Skin Skin exam: Present: dry, intact, normal color, warm Consult Discharge Plan - Plan Referrals: Magda Garcia CNP [Partnered Physician] - 07/30/17 10:35 am Laureano Modi Jr, MD [Primary Care Provider] - Jack Bernard MD [Partnered Physician] - 08/07/17 1:00 pm (1 WEEK AFTER DISCHARGE) - Attending Attestation I examined this patient and my medical decision-making was reviewed with the Resident Physician. I agree with the documented findings, disposition and treatment plan as described except to the extent set forth below.
[2017-07-22] MEDS: Isosorbide MONOnitrate (24 HR) 30 MG TAB.ER.24H PO SCH (11:40)
[2017-07-22] MEDS: Sennosides/Docusate Sodium TABLET PO SCH ×2 (14:04→19:41)
--- NOTE | 2017-07-22 14:26 | Cardiology Consult Note ---
<Tyron Nascimento - Last Filed: 07/23/17 11:05> Date of Encounter: 07/23/17 Time of Encounter: 14:20 Assessment and Plan (1) Arterial leg ulcer Current Visit: Yes Status: Acute Per Cardiology: Podiatry and Vascular following-- "Arterial ulcer of right leg medial aspect. S/ p RLE popliteal arthrectomy with balloon angioplasty by Dr. Bernard on 07/17/17. Per Vascular will likely require LLE intervention at a later date". (2) Atherosclerosis of [place] arteries of right leg with ulceration of other part of foot Current Visit: Yes Status: Chronic Per Cardiology: Followed by Vascular and podiatry: "The patient has bilateral foot ulcerations due to peripheral vascular disease. He has undergone a right popliteal atherectomy and angioplasty. His right foot is warm and has polyphasic dorsalis pedis artery signals. 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 His left pedal signals are diminished due to a left superficial femoral artery occlusion. The patient will require revascularization. His creatinine remains elevated and his WBC remains elevated. Will continue with antibiotics and local wound care. Continue with ASA and Plavix". (3) CHF (congestive heart failure) Current Visit: Yes Status: Acute Per Cardiology: Echo showed: Impressions: LVEF 35-40%. Moderate global and segmental left ventricular systolic dysfunction. Moderate pulmonary hypertension. Moderate-severe pulmonic regurgitation. Diastolic dysfunction, NOS Left Ventricular Wall Motion: Rest Echo Findings The apex, apical inferior, mid inferior, basal inferior, apical anterior, mid anterior, basal anterior, apical septal, mid inferior septal, basal inferior septal, apical lateral, mid anterior lateral, basal anterior lateral, mid anterior septal, mid inferior lateral, basal anterior septal and basal inferior lateral renae were hypokinetic. No known hx of CMP, no previous records available for review. Patient denies hx of CHF. On BB. Will avoid ACEI/ARB for now d/t YUMIKO. Consider titrating BB if able. Will need to eval for possible LHC-- patient unsure if he would like to proceed. Discussed and reviewed with Dr. Mancini. Qualifiers: Congestive heart failure type: systolic Congestive heart failure chronicity : acute Qualified Code(s): I50.21 - Acute systolic (congestive) heart failure (4) Elevated troponin Current Visit: Yes Status: Acute Per Cardiology: Trops 0.04 x 3, flat and adynamic. No CP. Demand ischemia suspected, however EF down. No Cardiac rehab c/s for now, will re-evaluate if/when C completed. (5) Acute kidney injury Current Visit: Yes Status: Acute Per Cardiology: Mild YUMIKO, appears improving. (6) Anemia Current Visit: Yes Status: Acute Per Cardiology: Appears new. Denies any active bleeding or blood loss. On asa and plavix, monitor closely. Currently stable. Qualifiers: Anemia type: unspecified type Qualified Code(s): D64.9 - Anemia, unspecified Discussion w patient/family: The assessment and plan as outlined above was discussed with the patient who expressed understanding and agreement. All questions were answered. Thank you for involving us in the care of your patient. Please call with any questions. History of Present Illness Consult date: 07/22/17 Consult reason: Low EF Chief complaint: Bilateral Leg Pain History of present illness: Mr. Mayorga is a 77 year old male relevant past medical history of diabetes mellitus, neuropathy, hyperlipidemia and hypertension-- however patient denies, denies COPD, but has history of nicotine abuse smoking one and a half packs per day for 20 years, quit smoking 10 years ago. Cardiology C/S for decreased EF on echo. Previous records reviewed: "History of COPD, CAD, diabetes controlled with insulin, HLD, and HTN presents from the ED with chief complaint of weakness and bilateral foot pain related to infection. Patient states his feet are hurting for approximately 4 months on and off. Patient states he is living alone and unable to care for himself and currently has no support system. Patient reports history of falls due to leg numbness. Patient states his feet constantly burn and tingle making it hard for him to walk so he must shuffle his feet. Patient states he has not taken insulin for approximately 2 years due to the cost. Patient reports he is a former smoker who smoked 1.5 packs per day and quit 10 years ago. Patient denies recent illness, fever, chills, nausea, vomiting, headache, changes in vision, shortness of breath, chest pain, palpitations, lightheadedness, diarrhea , constipation, presyncope, or syncope". He confirms the above information. Patient reports severe bilateral leg pain. He denies any SOB, palps, CP. He reportedly was told he had an NE a few years ago, reports has never had cardiac evaluation. Reports family history with mother with NE in her 60s, sister with an NE in her 70s, and reportedly daughter dying from an NE in her 20s. Past Med Surg Social Fam HX - Past Medical History Attestation: Yes The following information was validated with the patient. Source: patient, old records reviewed Medical history: COPD, coronary artery disease, diabetes, hyperlipidemia, hypertension Psychiatric history: no psych history - Past Surgical History Surgical History: no surgical history - Social History Smoking Status: Former smoker Packs per day: 1.5 PPD - reports quitting 10 years ago Smokeless Tobacco Status: No Alcohol use: none Drug use: none - Family History Mother Race: Family Member Ethnicity: Non- Living Status: Age at : 70 Cause of : CAD Hx Family Cardiac Disorders: Yes (CAD) Hx Family Endocrine Disorder: Yes (DM) Father Race: Family Member Ethnicity: Non- Living Status: Age at : 60 Cause of : Emphysema Hx Family Cardiac Disorders: Yes (HD) Hx Family Respiratory Disorders: Yes (Emphysema) Brother Family Member Ethnicity: Non- Living Status: Still Living Hx Family Cardiac Disorders: Yes (HD, HTN) Hx Family Endocrine Disorder: Yes (DM) Sister Race: Family Member Ethnicity: Non- Living Status: Age at : 59 Cause of : DM complications Hx Family Endocrine Disorder: Yes (DM) Medications and Allergies No Known Home Drugs 07/15/17 [History] 3 Allergy/AdvReac Type Severity Reaction Status Date / Time No Known Allergies Allergy Verified 07/03/15 17:42 All Systems Review: A 10-system review of systems was performed and is negative for pertinent findings except as documented above in the HPI. - Constitutional Constitutional: fatigue - Cardiovascular Cardiovascular: as per HPI, leg edema - Musculoskeletal Musculoskeletal: abnormal gait, other (bilateral leg pain) Physical Examination Vital Signs, Last 4 Hours Temp Pulse Resp BP Pulse Ox 07/22/17 11:37 97.9 F 71 18 144/87 94 07/22/17 11:30 97.9 F 71 18 144/87 94 General: Conversant, No Apparent Distress HEENT: Atraumatic, Normocephaly Neck: No JVD, Normal carotid pulses Cardiac: Reg Rate and Rhythm, Normal S1 and S2, No Murmur Lungs: Normal Breath Sounds, No Wheeze, Rales, Rhonchi Neuro: Alert and responsive, No focal deficits noted Abdomen: Soft, Non-Tender Skin: Other (multiple bilateral LE drsgs D&I) Extremities: Other (+1 nonpitting edema) Results 07/23/17 04:36 07/23/17 04:36 Lab Results Laboratory Tests 07/15/17 07/15/17 07/18/17 13:30 13:30 01:17 WBC 19.6 H Hgb 10.7 L Hct 34.6 L Creatinine 0.93 Est GFR (Non-Af Amer) > 60 59 L Magnesium AST ALT 07/19/17 07/21/17 07/22/17 03:07 06:31 00:35 WBC Hgb Hct Creatinine 1.55 H 1.41 H Est GFR (Non-Af Amer) 49 L Magnesium 1.8 AST 26 ALT 18 07/22/17 03:46 WBC 25.8 H Hgb 8.9 L Hct 28.6 L Creatinine Est GFR (Non-Af Amer) Magnesium AST ALT ITS Impressions Chest X-Ray 07/15/17 13:13 IMPRESSION: Findings suggest congestive heart failure D/ / Jayson Jimenez MD / Jayson Jimenez MD Interpreting Provider: Jayson Jimenez MD Head CT 07/15/17 13:15 IMPRESSION: No acute intracranial abnormality. Diffuse atrophic changes with findings suggesting chronic microvascular ischemia an old right occipital lobe infarct D/ / Jayson Jimenez MD / Jayson Jimenez MD Interpreting Provider: Jayson Jimenez MD Ankle X-Ray 07/15/17 13:52 IMPRESSION: Soft tissue ulcer in the left heel with diffuse soft tissue swelling consistent with cellulitis. Extensive vascular calcifications suggest diabetes. No definite evidence of osteomyelitis. D/ / Jack Melendez MD / Jack Melendez MD Interpreting Provider: Jack Melendez MD Ankle X-Ray 07/15/17 13:52 IMPRESSION: No acute bony or joint abnormality D/ / Jayson Jimenez MD / Jayson Jimenez MD Interpreting Provider: Jayson Jimenez MD Foot X-Ray 07/15/17 13:52 IMPRESSION: Soft tissue ulcer in the left heel with diffuse soft tissue swelling consistent with cellulitis. Extensive vascular calcifications suggest diabetes. No definite evidence of osteomyelitis. D/ / Jack Melendez MD / Jack Melendez MD Interpreting Provider: Jack Melendez MD Foot X-Ray 07/15/17 13:52 IMPRESSION: No acute bone or joint abnormality. D/ / Klever Diez MD / Klever Diez MD Interpreting Provider: Klever Diez MD Lower Extremity CT 07/16/17 17:08 IMPRESSION: Extensive soft tissue edema without radiographic evidence for osteomyelitis. D/ / Marino Lei MD / Marino Lei MD Interpreting Provider: Marino Lei MD Lower Extremity CT 07/16/17 17:09 IMPRESSION: Extensive soft tissue edema without radiographic evidence for osteomyelitis. D/ / Marino Lei MD / Marino Lei MD Interpreting Provider: Marino Lei MD Echocardiogram 07/21/17 10:00 Impressions: LVEF 35-40%. Moderate global and segmental left ventricular systolic dysfunction. Moderate pulmonary hypertension. Moderate-severe pulmonic regurgitation. Diastolic dysfunction, NOS Left Ventricular Wall Motion: Rest Echo Findings The apex, apical inferior, mid inferior, basal inferior, apical anterior, mid anterior, basal anterior, apical septal, mid inferior septal, basal inferior septal, apical lateral, mid anterior lateral, basal anterior lateral, mid anterior septal, mid inferior lateral, basal anterior septal and basal inferior lateral renae were hypokinetic. Findings: Study Quality * Technically adequate exam. Right Ventricle * Normal right ventricular structure and function. Right Atrium * Normal right atrial size. Aortic Valve * Trileaflet aortic valve with normal function. Interatrial Septum * No evidence of PFO by color Doppler. Aorta * Normally sized aortic root. Pericardium * The pericardium appears normal. Mitral Valve * Normal mitral valve structure. * Trace mitral regurgitation. * No mitral stenosis. Left Atrium * Mildly dilated left atrium. Tricuspid Valve * No tricuspid stenosis. * No tricuspid regurgitation. * No evidence of pulmonary hypertension. * Estimated RVSP is 41 mmHg. * Estimated RA pressure is 10-15 mmHg. * Moderate pulmonary hypertension. Pulmonic Valve * No pulmonic stenosis. * Moderate-severe pulmonic regurgitation. Pleural Effusion * Moderate pleural effusion. IVC * The IVC is dilated. * < 50% respiratory change. ECG Findings * Sinus rhythm with BBB. Left Ventricle * LVEF 35-40%. * Moderate global and segmental left ventricular systolic dysfunction. * Diastolic dysfunction, NOS Intake & Output 07/19/17 07/20/17 07/21/17 07/22/17 23:59 23:59 23:59 23:59 Intake Total 690 / 690 2660 / 2660 640 / 640 560 / 560 Output Total 515 / 515 250 / 250 250 / 250 100 / 100 Balance 175 / 175 2410 / 2410 390 / 390 460 / 460 Weight 86.1 kg 86.1 kg Active Medications Acetaminophen (Tylenol) 650 mg PO Q6HR PRN PRN Reason: Mild Pain (1-3) Stop: 01/14/18 19:38 Amlodipine Besylate (Norvasc) 10 mg PO DAILY [facility] PRN Reason: Protocol Stop: 01/14/18 20:31 Last Admin: 07/22/17 08:03 Dose: 10 mg Ascorbic Acid (Vitamin C) 500 mg PO BID [facility] Stop: 01/15/18 21:01 Last Admin: 07/22/17 07:57 Dose: 500 mg Carvedilol (Coreg) 3.125 mg PO BIDWM [facility] PRN Reason: Protocol Stop: 01/21/18 17:01 Clopidogrel Bisulfate (Plavix) 75 mg PO DAILY [facility] Stop: 01/17/18 09:01 Last Admin: 07/22/17 07:57 Dose: 75 mg Collagenase (Santyl) 1 appl TP BID [facility] PRN Reason: Protocol Stop: 01/16/18 21:01 Last Admin: 07/22/17 07:56 Dose: 1 appl Dextrose/Water (Dextrose 50% (Syg)) 25 ml IVP AD PRN PRN Reason: Hypoglycemia Stop: 01/14/18 17:08 Glucagon (Glucagen) 1 mg IM ONCE PRN PRN Reason: Hypoglycemia Stop: 01/14/18 17:08 Glucose (Gluctose) 15 gm PO ONCE PRN PRN Reason: Hypoglycemia Stop: 01/14/18 17:08 Glucose (Gluctose) 30 gm PO ONCE PRN PRN Reason: Hypoglycemia Stop: 01/14/18 17:08 Heparin Sodium (Porcine) (Heparin) 5,000 unit SQ Q8HCO [facility] Stop: 01/14/18 22:01 Last Admin: 07/22/17 14:04 Dose: 5,000 unit Hydralazine HCl (Hydralazine) 10 mg IVP Q6HR PRN PRN Reason: SBP>160 Stop: 01/19/18 08:28 Dextrose (Dextrose 5%) 1,000 mls @ 100 mls/hr IVC .Q10H PRN PRN Reason: HYPOGLYCEMIA Stop: 01/14/18 17:08 Piperacillin Sod/Tazobactam (Sod 3.375 gm/ Dextrose) 100 mls @ 25 mls/hr IVPB Q8H [facility] Stop: 01/15/18 00:01 Last Admin: 07/22/17 14:05 Dose: 25 mls/hr Insulin Detemir (Levemir) 15 unit SQ HS [facility] Stop: 01/21/18 21:01 Insulin Human Lispro (Humalog) 4 units 0.05 units/kg (4 units) SQ TIDWM [facility] Stop: 01/21/18 12:01 Last Admin: 07/22/17 11:42 Dose: 4 units Insulin Human Lispro (Humalog) 0 units SQ TIDAC [facility] PRN Reason: Protocol Stop: 01/21/18 11:31 Last Admin: 07/22/17 11:42 Dose: 8 units Insulin Human Lispro (Humalog) 0 units SQ HS [facility] PRN Reason: Protocol Stop: 01/21/18 21:01 Isosorbide Mononitrate (Imdur) 30 mg PO DAILY [facility] Stop: 01/21/18 09:01 Last Admin: 07/22/17 11:40 Dose: 30 mg Morphine Sulfate (Morphine Sulfate) 4 mg IVP Q4HR PRN PRN Reason: Severe Pain (7-10) Stop: 01/14/18 19:38 Last Admin: 07/22/17 14:04 Dose: 4 mg Multivitamins/Calcium (Thera M Plus) 1 tab PO DAILY [facility] PRN Reason: Protocol Stop: 01/16/18 09:01 Last Admin: 07/22/17 07:57 Dose: 1 tab Naloxone HCl (Narcan) 0.4 mg IVP Q2MIN PRN PRN Reason: Opioid Reversal Stop: 01/14/18 19:38 Nystatin (Mycostatin Cream) 1 appl TP BID [facility] Stop: 01/16/18 21:01 Last Admin: 07/22/17 07:55 Dose: 1 appl Omeprazole (Prilosec) 20 mg PO DAILY@0630 [facility] PRN Reason: Protocol Stop: 01/18/18 06:31 Last Admin: 07/22/17 06:25 Dose: 20 mg Ondansetron HCl (Zofran) 4 mg IVP Q8HR PRN PRN Reason: Nausea And Vomiting Stop: 01/14/18 19:38 Last Admin: 07/18/17 23:43 Dose: 4 mg Oxycodone HCl (Roxicodone) 5 mg PO Q6HR PRN PRN Reason: Moderate Pain Stop: 01/14/18 17:08 Last Admin: 07/22/17 11:40 Dose: 5 mg Senna/Docusate Sodium (Senna Plus) 1 each PO BID [facility] PRN Reason: Protocol Stop: 01/21/18 11:31 Last Admin: 07/22/17 14:04 Dose: 1 each Zinc Sulfate (Zinc Sulfate) 220 mg PO DAILY [facility] Stop: 01/16/18 09:01 Last Admin: 07/22/17 07:57 Dose: 220 mg - Imaging and Cardiology Chest Xray: report reviewed Echo: report reviewed - EKG Interpretation EKG results cardiology: personally reviewed, no diagnostic ischemia, other ( tele showed SR with PACs, PVCs) Consult Discharge Plan - Plan Referrals: Magda Garcia CNP [Partnered Physician] - 07/30/17 10:35 am Jack Bernard MD [Partnered Physician] - 08/07/17 1:00 pm (1 WEEK AFTER DISCHARGE) <Di Mancini - Last Filed: 07/23/17 16:30> Date of Encounter: 07/23/17 - Attending Attestation I have personally performed a face to face evaluation on this patient. I have reviewed and agree with the care plan ARP[facility]. History and Exam by me shows: EXAM: Alert and conversant, oriented Atraumatic, normocephaly No JVD, no carotid bruit RRR, soft heart sounds Lungs clear Abdomen soft, bowel sounds present No focal deficits Significant bilateral LE edema IMPRESSION: 1. Systolic heart failure: Unclear duration, appears new. Recommend consideration for LHC. Was discussed with the patient who agreed to proceed. Will consider IV diuresis - following kidney function. 2. Elevated troponin: Flat and adynamic. Suspect demand ischemia. Assessment and Plan Discussion w patient/family: The assessment and plan as outlined above was discussed with the patient and/or family members who expressed understanding and agreement. All questions were answered. Thank you for involving us in the care of your patient. Please call with any questions. History of Present Illness History of present illness: Mr. Mayroga is a 77 year old male All Systems Review: A 10-system review of systems was performed and is negative for pertinent findings except as documented above in the HPI. Physical Examination Vital Signs, Last 4 Hours Temp Pulse Resp BP Pulse Ox 07/23/17 16:10 97.6 F 99 18 151/81 94 Results 07/23/17 04:36 07/23/17 04:36 Lab Results 07/23/17 07/23/17 07/23/17 04:36 04:36 13:01 WBC 20.4 H Hgb 9.0 L Hct 29.2 L Plt Count 388 Sodium 141 Potassium 4.9 H Chloride 109 Carbon Dioxide 23 BUN 40 H Creatinine 1.34 H Glucose 147 H Calcium 8.9 Magnesium 1.8 1.5 L
--- NOTE | 2017-07-22 17:19 | Vascular/[facility] Progress Note ---
Date of Encounter: 07/22/17 Time of Encounter: 12:45 - Assessment and plan (1) Atherosclerosis of [place] arteries of right leg with ulceration of other part of foot Current Visit: Yes Status: Chronic The patient has bilateral foot ulcerations due to peripheral vascular disease. He has undergone a right popliteal atherectomy and angioplasty. His right foot is warm and has polyphasic dorsalis pedis artery signals. 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 His left pedal signals are diminished due to a left superficial femoral artery occlusion. The patient will require revascularization. His creatinine remains elevated and his WBC remains elevated. Will continue with antibiotics and local wound care. Continue with ASA and Plavix. (2) Atherosclerosis of [place] arteries of left leg with ulceration of other part of foot Current Visit: Yes Status: Chronic (3) Diabetes Current Visit: Yes Status: Chronic He was counseled regarding atherosclerotic risk factor reduction. 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 mellitus group home insulin use: without group home use Qualified Code( s): E11.621 - Type 2 diabetes mellitus with foot ulcer; L97.509 - Non-pressure chronic ulcer of other part of unspecified foot with unspecified severity; L97.509 - Non-pressure chronic ulcer of other part of unspecified foot with unspecified severity; L97.509 - Non-pressure chronic ulcer of other part of unspecified foot with unspecified severity; L97.509 - Non-pressure chronic ulcer of other part of unspecified foot with unspecified severity (4) HTN (hypertension) Current Visit: Yes Status: Chronic Qualifiers: Hypertension type: essential hypertension Qualified Code(s): I10 - Essential (primary) hypertension (5) HLD (hyperlipidemia) Current Visit: Yes Status: Chronic Qualifiers: Hyperlipidemia type: unspecified Qualified Code(s): E78.5 - Hyperlipidemia , unspecified - Subjective Interval history: The patient is alert and reports that his pain has been relieved today. He is without complaints. He denies any fevers or chills today. He denies chest pain or shortness of breath. Vital Signs, Last 4 Hours Temp Pulse Resp BP Pulse Ox 07/22/17 15:19 97.7 F 79 16 128/72 99 - Physical Examination General: Present: Conversant, No Apparent Distress HEENT: Present: Pupils equal Cardiac: Present: Reg Rate and Rhythm Lungs: Present: Normal Breath Sounds, No Wheeze, Rales, Rhonchi Neuro: Present: Alert and responsive, Motor nerves grossly intact, Sensory nerves grossly intact Vascular: Present: Normal capillary refill, Pulse, diminished (left pedal signals biphasic), Pulse, normal (right dorsalis pedis is polyphasic), Edema ( trace bilateral lower extremity edema). Absent: Cyanosis Abdomen: Present: Soft, Non-tender Skin: Present: Wound/ulcer(s) (bilateral foot ulcers without fluctuance, erythema is present), Other (right inguinal fungal rash persists) Results 07/23/17 04:36 07/23/17 04:36 Lab Results, Last 24 hours 07/22/17 07/22/17 00:35 03:46 WBC 25.8 H Hgb 8.9 L Hct 28.6 L Plt Count 391 Sodium 137 Potassium 4.8 H Chloride 109 Carbon Dioxide 20 BUN 38 H Creatinine 1.41 H Glucose 162 H Calcium 8.4 L Consult Discharge Plan - Plan Referrals: Magda Garcia CNP [Partnered Physician] - 07/30/17 10:35 am Laureano Modi Jr, MD [Primary Care Provider] - Jack Bernard MD [Partnered Physician] - 08/07/17 1:00 pm (1 WEEK AFTER DISCHARGE)
--- NOTE | 2017-07-22 20:35 | Podiatry Progress Note ---
Date of Encounter: 07/22/17 Time of Encounter: 12:30 - Assessment and Plan (1) Arterial leg ulcer Current Visit: Yes Status: Acute Arterial ulcer of right leg medial aspect is dry, no periwound erythema. Continue wound care as ordered. S/p RLE popliteal arthrectomy with balloon angioplasty by Dr. Bernard on . Per Vascular will likely require LLE intervention at a later date. (2) Pressure ulcer of left heel, unstageable Current Visit: Yes Status: Acute Assessment: Pressure ulcer of left posterior heel, base of wound with 100% yellow slough, light periwound erythema. No fluctuance, no streaking, no probe to bone. CT and xray were negative for OM WBC: increased to 25.8. ESR: >=130, CRP pending. Microbiology 07/15/17 13:30 Blood Culture - Preliminary Peripheral Venipuncture Anaerobic Gram Negative Jere 07/15/17 13:30 Blood Culture - Final Peripheral Venipuncture No growth. 07/18/17 16:31 Blood Culture - Preliminary Peripheral Venipuncture No growth. 07/18/17 16:31 Blood Culture - Preliminary Peripheral Venipuncture No growth. 07/16/17 16:55 Wound Culture - Final Left Foot Proteus mirabilis Klebsiella oxytoca Enterococcus faecalis Plan: CLIFF showed severe LLE disease and Vascular is following. Agree with present antibiotic therapy. Elevated ESR and WBC warrants further investigation. MRI of the left foot ordered by Hospitalist and pending. Continue wound care as ordered. Continue to keep heels floated away from pressure with boots. MRI will be reviewed with Dr. Roque and f/u with patient tomorrow. (3) Atherosclerosis of [place] arteries of left leg with ulceration of other part of foot Current Visit: Yes Status: Chronic (4) Atherosclerosis of [place] arteries of right leg with ulceration of other part of foot Current Visit: Yes Status: Chronic (5) Diabetic ulcer of both feet Current Visit: Yes Status: Chronic Continue wound care as ordered. (6) Cellulitis Current Visit: Yes Status: Resolved Cellulitis has resolved to BLE. Qualifiers: Site of cellulitis: extremity Site of cellulitis of extremity: lower extremity Laterality: unspecified laterality Qualified Code(s): L03.119 - Cellulitis of unspecified part of limb Subjective Interval history: Patient is lying in bed with heelmedix boots to both feet. Dressing intact to the left foot with 4x4 gauze to the interdigital webspace of toes #1 through #5 bilaterally. Patient states both of his feet are painful and rates the pain at a 3 out of 10 and states the pain increases to an 8 when his feet are touched. Patient is s/p RLE popliteal arthrectomy with balloon angioplasty by Dr. Peguero on 07/17/17. Patients WBC has increased to 25.8. No c/o fever, chills , cp, sob or calf pain. Objective - Vital Signs Vital Signs: Vital Signs Temp Pulse Resp BP Pulse Ox 07/22/17 19:39 97.6 F 73 16 152/95 99 07/22/17 15:45 97.7 F 79 16 128/72 99 07/22/17 15:19 97.7 F 79 16 128/72 99 07/22/17 11:37 97.9 F 71 18 144/87 94 07/22/17 11:30 97.9 F 71 18 144/87 94 07/22/17 08:00 97.9 F 89 16 167/93 07/22/17 07:15 97.9 F 89 20 167/93 95 07/22/17 03:33 98.9 F 82 22 164/95 95 07/21/17 23:33 98.8 F 66 20 147/85 97 Intake and Output 07/22/17 07/22/17 07/22/17 07:59 15:59 23:59 Intake Total 220 / 220 340 / 340 340 / 340 Output Total 100 / 100 0 / 0 Balance 120 / 120 340 / 340 340 / 340 Intake: IV Fluids 100 / 100 100 / 100 100 / 100 Zosyn 3.375 GM In Dextrose 5% ( 100 / 100 100 / 100 100 / 100 Minibag+) 100 ML 100 ML @ 25 mls/hr IVPB Q8H [facility] Rx#: [id number] Oral 120 / 120 240 / 240 240 / 240 Output: Urine 100 / 100 0 / 0 Other: Meal Dinner Percent of Meal Consumed 50% Weight 86.1 kg Blood Glucose* 242 256 61 Patient Weight 07/22/17 23:59 Weight 86.1 kg - Exam Exam: General: A&O x3, calm and cooperative. Integument: scattered dried scabs and superficial ulcers to the dorsum of both feet and right lower leg. No periwound erythema. Dermatologic: toe nails #1 through #5 bilaterally are thick elongated and mycotic. Toe nail #1 right is an connected at the proximal nail plate , no erythema, no open wound. - Ankle and Foot left Foot appearance: Present: other (Left foot: full thickness ulceration to the posterior aspect of the left heel measuring 2 cm in length x 1.8 cm in width x 0.8 cm in depth, undermining mesuring 0.3 cm from 12 O' clock to 2 O'clock with 100% yellow fibrous tissue, light periwound erythema, no streaking, no pus, no odor, no fluctuance. No probe to bone. Pedal pulses palpable on the right, unable to palpate pedal pulses on the left. CFT is immediate to digits #1 through #5 bilaterally. Temperature of skin is cool to warm from toes to tibia. ) - Lab Result Diagrams: 07/22/17 03:46 07/22/17 00:35 Labs: Abnormal lab results WBC 25.8 K/mcL (4.3-11.1) H 07/22/17 03:46 RBC 3.11 M/mcL (4.19-5.50) L 07/22/17 03:46 Hgb 8.9 g/dL (12.9-16.9) L 07/22/17 03:46 Hct 28.6 % (37.5-50.1) L 07/22/17 03:46 MCHC 31.1 g/dL (31.6-35.5) L 07/22/17 03:46 RDW 16.8 % (11.5-14.5) H 07/22/17 03:46 Neutrophils # 23.2 K/mcL (1.6-8.9) H 07/22/17 03:46 Monocytes # 1.4 K/mcL (0.0-1.3) H 07/22/17 03:46 ESR >= 130 mm/hr (0-10) H 07/22/17 03:46 PT 12.5 Seconds (9.4-12.1) H 07/16/17 01:45 Potassium 4.8 mEq/L (3.5-4.5) H 07/22/17 00:35 BUN 38 mg/dL (8-26) H 07/22/17 00:35 Creatinine 1.41 mg/dL (0.72-1.25) H 07/22/17 00:35 Est GFR ( Amer) 59 (> 60) L 07/22/17 00:35 Est GFR (Non-Af Amer) 49 (> 60) L 07/22/17 00:35 BUN/Creatinine Ratio 27 (6-26) H 07/22/17 00:35 Glucose 162 mg/dL (70-99) H 07/22/17 00:35 Hemoglobin A1c 9.3 % (-5.6) H 07/15/17 13:30 Calcium 8.4 mg/dL (8.6-10.8) L 07/22/17 00:35 Iron 21 mcg/dL (65-175) L 07/17/17 03:40 % Saturation 10 % (20-55) L 07/17/17 03:40 Transferrin 143 mg/dL (174-364) L 07/17/17 03:40 Ferritin 331 ng/ml (22-275) H 07/17/17 03:40 Alkaline Phosphatase 158 Units/L (38-126) H 07/19/17 03:07 Troponin I 0.04 ng/mL (0-0.03) H* 07/16/17 01:45 Albumin 2.2 g/dL (3.5-5.0) L 07/19/17 03:07 Globulin 4.3 g/dL (2.4-3.5) H 07/19/17 03:07 Albumin/Globulin Ratio 0.5 (1.1-2.2) L 07/19/17 03:07 HDL Cholesterol 33 mg/dL (40-59) L 07/16/17 01:45 Urine Clarity Cloudy (Clear) A 07/16/17 12:45 Ur Specific [place] 1.030 (1.010-1.025) H 07/16/17 12:45 Urine Protein >=300 mg/dL (Neg-Trace) H 07/16/17 12:45 Urine Glucose (UA) 250 mg/dL (Normal) H 07/16/17 12:45 Urine Bilirubin Small (Negative) H 07/16/17 12:45 Urine Microscopic RBC 5-15 per hpf (0-3) H 07/16/17 12:45 Urine Microscopic WBC 5-15 per hpf (0-3) H 07/16/17 12:45 Ur Squamous Epith Cells Many per lpf (None-Few) H 07/16/17 12:45 Consult Discharge Plan - Plan Referrals: Magda Garcia CNP [Partnered Physician] - 07/30/17 10:35 am Laureano Modi Jr, MD [Primary Care Provider] - Jack Bernard MD [Partnered Physician] - 08/07/17 1:00 pm (1 WEEK AFTER DISCHARGE)
[2017-07-22] MEDS: Insulin DETEMIR 100 UNIT/ML X5UNITS SQ SCH (21:47)
[2017-07-23] MEDS: *HR* Morphine 2 MG/ML SYRINGE IVP PRN ×4 (02:39→19:22)
[2017-07-23 04:59] LABS: Basophils # 0.1 K/mcL (0.0-0.2); Basophils % 0.3 %; Eosinophils # 0.1 K/mcL (0.0-0.6); Eosinophils % 0.4 %; Hematocrit 29.2 % (37.5-50.1); Immature Granulocytes % 1.1 % (0-4); Lymphocytes # 0.9 K/mcL (0.6-4.6); Lymphocytes % 4.5 %; Mean Corpuscular HGB Conc 30.8 g/dL (31.6-35.5); Mean Corpuscular Hemoglobin 28.6 pg (28.0-33.3); Mean Corpuscular Volume 92.7 fL (83.0-100.0); Mean Platelet Volume 10.7 fL (9.4-12.4); Monocytes # 1.3 K/mcL (0.0-1.3); Monocytes % 6.3 %; Neutrophils # 17.8 K/mcL (1.6-8.9); Platelet Count 388 K/mcL (140-400); Red Blood Count 3.15 M/mcL (4.19-5.50); Red Cell Distribution Width 16.9 % (11.5-14.5); Segmented Neutrophils % 87.4 %
[2017-07-23 05:00] LABS: BUN/Creatinine Ratio 30 (6-26); Blood Urea Nitrogen 40 mg/dL (8-26); Carbon Dioxide 23 mEq/L (19-29); Chloride 109 mEq/L (98-109); Glucose 147 mg/dL (70-99); Potassium 4.9 mEq/L (3.5-4.5); Sodium 141 mEq/L (136-145); eGFR For African Americans > 60 (> 60); eGFR For Non-African Americans 52 (> 60)
[2017-07-23 05:01] LABS: Calcium 8.9 mg/dL (8.6-10.8); Magnesium 1.8 mg/dL (1.6-2.6); Osmolality,Calculated 304 (280-300)
[2017-07-23] MEDS: Piperacillin/Tazobactam 3.375 GM in D5% in Water (Mini-Bag+) 100 ML IVPB SCH ×3 (05:57→22:34)
[2017-07-23] MEDS: *HR* Heparin 5,000 UNIT/ML VIAL SQ SCH ×3 (05:58→22:35)
[2017-07-23] MEDS: amLODIPine 5 MG TABLET PO SCH (08:11)
[2017-07-23] MEDS: Multivit/Ca/Min/Fe/FA 1 TAB TABLET PO SCH (08:12)
[2017-07-23] MEDS: Zinc Sulfate 220 MG CAPSULE PO SCH (08:12)
[2017-07-23] MEDS: Isosorbide MONOnitrate (24 HR) 30 MG TAB.ER.24H PO SCH (08:12)
[2017-07-23] MEDS: Nystatin Cream 15 GM TUBE TP SCH ×2 (08:12→22:38)
[2017-07-23] MEDS: Ascorbic Acid 500 MG TABLET PO SCH ×2 (08:12→22:35)
[2017-07-23] MEDS: Insulin LISPRO 300 UNITS/3 ML VIAL SQ SCH ×7 (08:13→21:00)
[2017-07-23] MEDS: Sennosides/Docusate Sodium TABLET PO SCH ×2 (08:14→22:35)
--- NOTE | 2017-07-23 08:31 | Cardiology Progress Note ---
Date of Encounter: 07/23/17 Time of Encounter: 08:30 Assessment and Plan (1) Arterial leg ulcer Current Visit: Yes Status: Acute Per Cardiology: Podiatry and Vascular following-- "Arterial ulcer of right leg medial aspect. S/ p RLE popliteal arthrectomy with balloon angioplasty by Dr. Bernard on 07/17/17. Per Vascular will likely require LLE intervention at a later date". Will eval if intervention or surgery warranted. (2) Atherosclerosis of [place] arteries of right leg with ulceration of other part of foot Current Visit: Yes Status: Chronic Per Cardiology: Followed by Vascular and podiatry: "The patient has bilateral foot ulcerations due to peripheral vascular disease. He has undergone a right popliteal atherectomy and angioplasty. His right foot is warm and has polyphasic dorsalis pedis artery signals. 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 His left pedal signals are diminished due to a left superficial femoral artery occlusion. The patient will require revascularization. His creatinine remains elevated and his WBC remains elevated. Will continue with antibiotics and local wound care. Continue with ASA and Plavix". Discussed with Dr. Bernard, pland for surgical intervention during this hospital stay once WBC improves. Agrees with plans for [facility] for preop eval. (3) CHF (congestive heart failure) Current Visit: Yes Status: Acute Per Cardiology: Echo showed: Impressions: LVEF 35-40%. Moderate global and segmental left ventricular systolic dysfunction. Moderate pulmonary hypertension. Moderate-severe pulmonic regurgitation. Diastolic dysfunction, NOS Left Ventricular Wall Motion: Rest Echo Findings The apex, apical inferior, mid inferior, basal inferior, apical anterior, mid anterior, basal anterior, apical septal, mid inferior septal, basal inferior septal, apical lateral, mid anterior lateral, basal anterior lateral, mid anterior septal, mid inferior lateral, basal anterior septal and basal inferior lateral renae were hypokinetic. No known hx of CMP, no previous records available for review. Patient denies hx of CHF. On BB. Will avoid ACEI/ARB for now d/t YUMIKO. SBP 150's, will DC Norvasc and increase Coreg 12.5mg PO BID-- continue to titrate as able. I&O +7350ml. Will check daily weights, strict I&O, 1.5L fluid restriction. Discussed with Dr. Mancini, Dr. Lucila Puga, and Dr. Oliva. Discussed with Dr. Bernard as well. Plan for [facility] today. Patient agreeable. Qualifiers: Congestive heart failure type: systolic Congestive heart failure chronicity : acute Qualified Code(s): I50.21 - Acute systolic (congestive) heart failure (4) Elevated troponin Current Visit: Yes Status: Acute Per Cardiology: Trops 0.04 x 3, flat and adynamic. No CP. Demand ischemia suspected. (5) Acute kidney injury Current Visit: Yes Status: Acute Per Cardiology: Improving. (6) Anemia Current Visit: Yes Status: Acute Per Cardiology: Appears new. Denies any active bleeding or blood loss. On asa and plavix, monitor closely. Currently stable. Qualifiers: Anemia type: unspecified type Qualified Code(s): D64.9 - Anemia, unspecified Discussion w patient/family: The assessment and plan as outlined above was discussed with the patient and/or family members who expressed understanding and agreement. All questions were answered. Thank you for involving us in the care of your patient. Please call with any questions. Subjective Principal diagnosis: Decreased EF Objective Selected Entries 07/23/17 03:18 07/23/17 03:46 Temperature 97.6 F Pulse Rate 86 Respiratory Rate 18 Blood Pressure 157/93 O2 Sat by Pulse Oximetry 96 Oxygen Flow Rate (LPM) 2 Oxygen Delivery Method Nasal Cannula Results 07/23/17 04:36 07/23/17 04:36 Lab Results Laboratory Tests 07/23/17 07/23/17 04:36 04:36 WBC 20.4 H Hgb 9.0 L Hct 29.2 L Creatinine 1.34 H Est GFR (Non-Af Amer) 52 L Magnesium 1.8 Impressions Foot MRI 07/22/17 12:54 IMPRESSION: 1. Posterior soft tissue ulceration. Adjacent and circumferential ankle subcutaneous edema compatible with cellulitis. No drainable fluid collection. 2. Mild focal bone marrow edema in the far posterolateral calcaneus with reticular T1 signal compatible with early osteomyelitis versus noninfectious reactive osteitis. D/ / Christofer Neely MD / Christofer Neely MD Interpreting Provider: Christofer Neely MD Active Medications Acetaminophen (Tylenol) 650 mg PO Q6HR PRN PRN Reason: Mild Pain (1-3) Stop: 01/14/18 19:38 Amlodipine Besylate (Norvasc) 10 mg PO DAILY [facility] PRN Reason: Protocol Stop: 01/14/18 20:31 Last Admin: 07/23/17 08:11 Dose: 10 mg Ascorbic Acid (Vitamin C) 500 mg PO BID [facility] Stop: 01/15/18 21:01 Last Admin: 07/23/17 08:12 Dose: 500 mg Carvedilol (Coreg) 3.125 mg PO BIDWM [facility] PRN Reason: Protocol Stop: 01/21/18 17:01 Last Admin: 07/23/17 08:11 Dose: 3.125 mg Clopidogrel Bisulfate (Plavix) 75 mg PO DAILY [facility] Stop: 01/17/18 09:01 Last Admin: 07/23/17 08:11 Dose: 75 mg Collagenase (Santyl) 1 appl TP BID [facility] PRN Reason: Protocol Stop: 01/16/18 21:01 Last Admin: 07/23/17 08:14 Dose: 1 appl Dextrose/Water (Dextrose 50% (Syg)) 25 ml IVP AD PRN PRN Reason: Hypoglycemia Stop: 01/14/18 17:08 Glucagon (Glucagen) 1 mg IM ONCE PRN PRN Reason: Hypoglycemia Stop: 01/14/18 17:08 Glucose (Gluctose) 15 gm PO ONCE PRN PRN Reason: Hypoglycemia Stop: 01/14/18 17:08 Glucose (Gluctose) 30 gm PO ONCE PRN PRN Reason: Hypoglycemia Stop: 01/14/18 17:08 Heparin Sodium (Porcine) (Heparin) 5,000 unit SQ Q8HCO [facility] Stop: 01/14/18 22:01 Last Admin: 07/23/17 05:58 Dose: 5,000 unit Hydralazine HCl (Hydralazine) 10 mg IVP Q6HR PRN PRN Reason: SBP>160 Stop: 01/19/18 08:28 Dextrose (Dextrose 5%) 1,000 mls @ 100 mls/hr IVC .Q10H PRN PRN Reason: HYPOGLYCEMIA Stop: 01/14/18 17:08 Piperacillin Sod/Tazobactam (Sod 3.375 gm/ Dextrose) 100 mls @ 25 mls/hr IVPB Q8H [facility] Stop: 01/15/18 00:01 Last Admin: 07/23/17 05:57 Dose: 25 mls/hr Insulin Detemir (Levemir) 15 unit SQ HS [facility] Stop: 01/21/18 21:01 Last Admin: 07/22/17 21:47 Dose: Not Given Insulin Human Lispro (Humalog) 4 units 0.05 units/kg (4 units) SQ TIDWM [facility] Stop: 01/21/18 12:01 Last Admin: 07/23/17 08:13 Dose: Not Given Insulin Human Lispro (Humalog) 0 units SQ TIDAC [facility] PRN Reason: Protocol Stop: 01/21/18 11:31 Last Admin: 07/23/17 08:13 Dose: Not Given Insulin Human Lispro (Humalog) 0 units SQ HS [facility] PRN Reason: Protocol Stop: 01/21/18 21:01 Last Admin: 07/22/17 21:48 Dose: Not Given Isosorbide Mononitrate (Imdur) 30 mg PO DAILY [facility] Stop: 01/21/18 09:01 Last Admin: 07/23/17 08:12 Dose: 30 mg Morphine Sulfate (Morphine Sulfate) 4 mg IVP Q4HR PRN PRN Reason: Severe Pain (7-10) Stop: 01/14/18 19:38 Last Admin: 07/23/17 08:12 Dose: 4 mg Multivitamins/Calcium (Thera M Plus) 1 tab PO DAILY [facility] PRN Reason: Protocol Stop: 01/16/18 09:01 Last Admin: 07/23/17 08:12 Dose: 1 tab Naloxone HCl (Narcan) 0.4 mg IVP Q2MIN PRN PRN Reason: Opioid Reversal Stop: 01/14/18 19:38 Nystatin (Mycostatin Cream) 1 appl TP BID [facility] Stop: 01/16/18 21:01 Last Admin: 07/23/17 08:12 Dose: 1 appl Omeprazole (Prilosec) 20 mg PO DAILY@0630 [facility] PRN Reason: Protocol Stop: 01/18/18 06:31 Last Admin: 07/23/17 05:58 Dose: 20 mg Ondansetron HCl (Zofran) 4 mg IVP Q8HR PRN PRN Reason: Nausea And Vomiting Stop: 01/14/18 19:38 Last Admin: 07/18/17 23:43 Dose: 4 mg Oxycodone HCl (Roxicodone) 5 mg PO Q6HR PRN PRN Reason: Moderate Pain Stop: 01/14/18 17:08 Last Admin: 07/22/17 21:56 Dose: 5 mg Senna/Docusate Sodium (Senna Plus) 1 each PO BID [facility] PRN Reason: Protocol Stop: 01/21/18 11:31 Last Admin: 07/23/17 08:14 Dose: 1 each Zinc Sulfate (Zinc Sulfate) 220 mg PO DAILY [facility] Stop: 01/16/18 09:01 Last Admin: 07/23/17 08:12 Dose: 220 mg - Imaging and Cardiology Echo: report reviewed - EKG Interpretation EKG results cardiology: other (Telemetry reviewed with average heart rate 84, sinus rhythm, occasional PVCs and PACs) Consult Discharge Plan - Plan Referrals: Magda Garcia CNP [Partnered Physician] - 07/30/17 10:35 am Jack Bernard MD [Partnered Physician] - 08/07/17 1:00 pm (1 WEEK AFTER DISCHARGE)
--- NOTE | 2017-07-23 11:21 | Infectious Disease Progress No ---
Date of Encounter: 07/25/17 Time of Encounter: 11:19 - Assessment and Plan (1) Sepsis Current Visit: Yes Status: Resolved The patient had two SIRS criteria on admission. Likely secondary to infected arterial ulcers/cellulitis. Improved. Tachycardia has resolved. WBC improved this morning. Blood cultures drawn 07/15/17 are positive 1/2 sets for anaerobic GNR. Repeat blood cultures drawn 07/18/17 are NGTD x 2 sets. Qualifiers: Sepsis type: sepsis due to unspecified organism Qualified Code(s): A41.9 - Sepsis, unspecified organism (2) Bacteremia Current Visit: Yes Status: Resolved Causative organism unclear. Blood cultures drawn 07/15/17 are positive 1/2 sets for anaerobic GNR. Most likely a contaminant given that only 1/2 sets is positive. Repeat blood cultures drawn 07/18/17 are NGTD x 2 sets. (3) Cellulitis Current Visit: Yes Status: Resolved Location: BLE per the medical record. Appears improved as there are no signs of cellulitis at this time. Causative organism unclear, but likely polymicrobial. Likely secondary to infected arterial ulcers. Wound culture grew P. mirabilis, K. oxytoca, and E. faecalis. CT of the BLE negative for OM or abscess, but the patient's WBC continues to markedly elevated. Podiatry consulted and following. Continue wound care per their recommendations. ESR >130. CRP 78. MRI of the left foot shows findings consistent with early osteomyelitis vs. reactive osteitis. Given the markedly elevated inflammatory markers, concern for early osteomyelitis. Await further recommendations from podiatry. Continue Zosyn 3.375 grams IV Q8H. Duration of treatment depends on the clinical picture. Monitor renal function and dose-adjust antibiotics. Qualifiers: Site of cellulitis: extremity Site of cellulitis of extremity: lower extremity Laterality: unspecified laterality Qualified Code(s): L03.119 - Cellulitis of unspecified part of limb (4) Acute kidney injury Current Visit: Yes Status: Acute Likely LUCY. Stable. Continue to trend. Dose-adjust antibiotics. Avoid nephrotoxins as able. (5) Arterial leg ulcer Current Visit: Yes Status: Acute Location: Bilateral feet. ABIs completed 07/16/17 showed moderate disease in the RLE and severe disease in the LLE. Vascular surgery consulted. Status post angiogram with right popliteal arthrectomy with angioplasty 07/17/[address] Bernard. The patient will likely require surgical intervention on the LLE at a later date. Continue wound care per podiatry's recommendations. (6) Weakness generalized Current Visit: Yes Status: Acute (7) Elevated troponin Current Visit: Yes Status: Acute Likely secondary to demand ischemia. Management per the primary team. (8) Atherosclerosis of [place] arteries of right leg with ulceration of other part of foot Current Visit: Yes Status: Chronic CLIFF showed moderate disease. Vascular surgery consulted and following. Status post RLE popliteal arthrectomy with balloon angioplasty 07/17/[address] Bernard. (9) Atherosclerosis of [place] arteries of left leg with ulceration of other part of foot Current Visit: Yes Status: Chronic CLIFF showed severe LLE disease. Vascular surgery consulted and following. Per Vascular, will likely require further LLE intervention/surgery at a later date. (10) Pressure ulcer of left heel, unstageable Current Visit: Yes Status: Acute Likely multifactorial: pressure ulcer + arterial insufficiency. Patient refuses exam. Podiatry consulted and following. CT scan/XR negative for OM. ESR and CRP markedly elevated. MRI shows possible early OM vs. reactive osteitis. Continue wound care per podiatry. Continue antibiotics as above. Await recommendations from podiatry. (11) Anemia Current Visit: Yes Status: Acute Etiology unclear. No acute bleeding noted on exam. Further workup and management per the primary team. Qualifiers: Anemia type: unspecified type Qualified Code(s): D64.9 - Anemia, unspecified (12) Diabetes Current Visit: Yes Status: Chronic Patient reports he has not been taking his diabetic medications for two years. HgbA1C 9%. Recommend aggressive glucose monitoring and control to promote wound healing and prevent re-infection. 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 mellitus intermediate teacher insulin use: without intermediate teacher use Qualified Code( s): E11.621 - Type 2 diabetes mellitus with foot ulcer; L97.509 - Non-pressure chronic ulcer of other part of unspecified foot with unspecified severity; L97.509 - Non-pressure chronic ulcer of other part of unspecified foot with unspecified severity; L97.509 - Non-pressure chronic ulcer of other part of unspecified foot with unspecified severity; L97.509 - Non-pressure chronic ulcer of other part of unspecified foot with unspecified severity - Subjective Interval history: Patient seen and examined. No acute events noted overnight. Patient states he feels better today and reports minimal pain in his feet at this time. Denies fevers, chills, or rigors. Denies chest pain, but does report some mild shortness of breath and a non-productive cough. Denies nausea, vomiting, diarrhea or abdominal pain. States he thinks his last BM was a couple of days ago (2 days ago per nursing documentation). Status post spence catheter insertion this morning. Scheduled for LHC later today per nursing. Infect Dis PN-Objective Data - Labs CBC & Chem 7: 07/26/17 09:42 07/26/17 09:42 Labs: Laboratory Results - last 24 hr 07/22/17 07/22/17 07/22/17 00:35 03:46 07:15 WBC RBC Hgb Hct MCV MCH MCHC RDW Plt Count MPV Immature Gran % Seg Neutrophils % Lymphocytes % Monocytes % Eosinophils % Basophils % Neutrophils # Lymphocytes # Monocytes # Eosinophils # Basophils # ESR >= 130 H Sodium 137 Potassium 4.8 H Chloride 109 Carbon Dioxide 20 BUN 38 H Creatinine 1.41 H Est GFR ( Amer) 59 L Est GFR (Non-Af Amer) 49 L BUN/Creatinine Ratio 27 H Glucose 162 H POC Glucose 242 H Calculated Osmolality 297 Calcium 8.4 L Magnesium C-Reactive Protein 78 H 07/22/17 07/22/17 07/22/17 11:36 16:04 20:08 WBC RBC Hgb Hct MCV MCH MCHC RDW Plt Count MPV Immature Gran % Seg Neutrophils % Lymphocytes % Monocytes % Eosinophils % Basophils % Neutrophils # Lymphocytes # Monocytes # Eosinophils # Basophils # ESR Sodium Potassium Chloride Carbon Dioxide BUN Creatinine Est GFR ( Amer) Est GFR (Non-Af Amer) BUN/Creatinine Ratio Glucose POC Glucose 209 H 256 H 61 Calculated Osmolality Calcium Magnesium C-Reactive Protein 07/22/17 07/23/17 07/23/17 23:36 04:36 04:36 WBC 20.4 H RBC 3.15 L Hgb 9.0 L Hct 29.2 L MCV 92.7 MCH 28.6 MCHC 30.8 L RDW 16.9 H Plt Count 388 MPV 10.7 Immature Gran % 1.1 Seg Neutrophils % 87.4 Lymphocytes % 4.5 Monocytes % 6.3 Eosinophils % 0.4 Basophils % 0.3 Neutrophils # 17.8 H Lymphocytes # 0.9 Monocytes # 1.3 Eosinophils # 0.1 Basophils # 0.1 ESR Sodium 141 Potassium 4.9 H Chloride 109 Carbon Dioxide 23 BUN 40 H Creatinine 1.34 H Est GFR ( Amer) > 60 Est GFR (Non-Af Amer) 52 L BUN/Creatinine Ratio 30 H Glucose 147 H POC Glucose 156 H Calculated Osmolality 304 H Calcium 8.9 Magnesium 1.8 C-Reactive Protein Cultures: Cultures 07/18/17 16:31 Blood Culture - Preliminary Peripheral Venipuncture No growth. 07/18/17 16:31 Blood Culture - Preliminary Peripheral Venipuncture No growth. 07/16/17 16:55 Wound Culture - Final Left Foot Proteus mirabilis Klebsiella oxytoca Enterococcus faecalis Serology 07/16/17 Range/Units 12:45 Urine Color Yellow (Yellow) Urine Clarity Cloudy A (Clear) Urine pH 5.5 (5.0-8.0) pH Units Ur Specific [place] 1.030 H (1.010-1.025) Urine Protein >=300 H (Neg-Trace) mg/dL Urine Glucose (UA) 250 H (Normal) mg/dL Urine Ketones Negative (Negative) mg/dL Urine Blood Negative (Negative) Urine Nitrite Negative (Negative) Urine Bilirubin Small H (Negative) Urine Urobilinogen Normal (Normal) mg/dL Ur Leukocyte Esterase Negative (Negative) Urine Microscopic RBC 5-15 H (0-3) per hpf Urine Microscopic WBC 5-15 H (0-3) per hpf Ur Squamous Epith Cells Many H (None-Few) per lpf Urine Bacteria None Seen (None-Few) per hpf Hyaline Casts None Seen (None-Few) per lpf Ur Culture Indicated? NO (NO) - Impressions Impressions Foot MRI 07/22/17 12:54 IMPRESSION: 1. Posterior soft tissue ulceration. Adjacent and circumferential ankle subcutaneous edema compatible with cellulitis. No drainable fluid collection. 2. Mild focal bone marrow edema in the far posterolateral calcaneus with reticular T1 signal compatible with early osteomyelitis versus noninfectious reactive osteitis. D/ / Christofer Neely MD / Christofer Neely MD Interpreting Provider: Chirstofer Neely MD Exam - Constitutional Vitals: Temp Pulse Resp BP Pulse Ox 97.9 F 85 22 152/91 95 07/23/17 08:28 07/23/17 08:28 07/23/17 08:28 07/23/17 08:28 07/23/17 08:28 General appearance: average body habitus, cooperative, no acute distress - Head Head exam: Present: atraumatic, normal inspection, normocephalic - Eye Eye exam: Present: EOMI, normal appearance, PERRL Pupils: Present: normal accommodation - ENT ENT exam: Present: mucous membranes dry - Neck Neck exam: Present: normal inspection - Respiratory Respiratory exam: Present: wheezes (fine expiratory throughout anterior lung berkowitz). Absent: rales, respiratory distress, rhonchi, tachypnea - Cardiovascular Cardiovascular exam: Present: RRR, +S1, +S2 - GI/Abdominal GI/Abdominal exam: Present: normal bowel sounds, soft. Absent: distended, tenderness Additional comments: Spence catheter noted to be draining small amount of clear yellow urine. - Extremities Exam Extremities exam: Present: pedal edema (1+ BLE), tenderness (bilateral feet) Additional comments: Dry, scabbed lesions noted to the dorsal aspect of the right foot without erythema, warmth, or drainage. Left foot dressing with a small amount of serous drainage noted to the dorsal aspect. Unable to remove dressing or fully assess the plantar aspect of the dressing due to patient refusing. Moonboots noted to the bilateral feet. - Neurological Exam Neurological exam: Present: alert, oriented X3, no focal deficits - Psychiatric Psychiatric exam: Present: normal affect, normal mood Additional comments: Much more pleasant this morning. - Skin Skin exam: Present: dry, intact, normal color, warm Consult Discharge Plan - Plan Additional Instructions: RISK FACTORS: STOP SMOKING: If you smoke, STOP. Smoking or tobacco use significantly increases your risk of heart disease because nicotine causes the arteries to narrow or constrict. It also causes fats to stick to the artery. Your chances of having a heart attack are greatly increased if you continue to smoke. For more information, call the education line for smoking cessation 6-725-BKSFAGN EAT A LOW FAT/CHOLESTEROL/SODIUM DIET: This diet may help reduce your chances of having a heart attack. LIFTING: Avoid lifting anything more than 10 pounds for 5-7 days Prior to straining, laughing, sneezing and/or coughing, apply manual pressure directly over insertion site. ACTIVITY: You may walk or climb stairs as tolerated You can resume sexual activity as tolerated In general, you are encouraged to engage in a minimum of 30 minutes or more of moderate intensity physical activity, such as brisk walking, daily or at least 3 -4 times weekly BATHING Do not submerge the site into water (bath tub, hot tub, swimming pool) for 1 week. This can be a source for infection into the blood stream. You may shower after 24 hours SITE CARE: After 24 hours, you may remove the dressing and leave the site open to air. Keep the site clean and dry. Clean gently and pat dry. You can expect bruising and tenderness that gradually resolve within a week or two. Return to work as instructed per your physician Resume driving as instructed per physician Keep all scheduled follow up appointments Resume medications as instructed IMPORTANT: If prescribed a Platelet Aggregation Inhibitor such as, Plavix, Brilinta or Effient: Duration of therapy is minimum one year These medications are often used in combination with Aspirin in prevention of future heart attacks Never discontinue unless consult with your Machine Baster STROKE (CVA) Risk factors for a stroke are: Age, cigarette smoking, diabetes, excessive alcohol consumption, family history, high blood pressure, overweight, physical inactivity, prior stroke, heart attack, diagnosis of carotid artery stenosis or other artery disease. Warning signs: Sudden numbness or weakness of the face, arm or leg; especially on one side of the body, sudden confusion, trouble speaking or understanding, sudden trouble seeing in one or both eyes, sudden trouble walking, dizziness, loss of balance or coordination, sudden severe headache with no cause. Call 911 or go to the Emergency Room. CONGESTIVE HEART FAILURE: If you have been diagnosed with Congestive Heart Failure (CHF) and your symptoms return, make an appointment with your physician Weigh yourself daily. Notify your physician if you have a weight gain of two or more pounds in one day or five or more pounds in one week. If you experience any difficulty breathing, please call 911 BLEEDING: Although the risk of bleeding is minimal, it can happen. If you have any bleeding from the site, apply firm pressure above the puncture site for 10-15 minutes. If the bleeding does not stop, continue manual pressure and call 911 Contact your physician if: You develop a fever greater than 101 degrees Fahrenheit Your site becomes reddened or has any drainage You have an increase in pain or burning at the site or if a large knot forms at the site. If you experience chest pain, shortness of breath, dizziness, or extreme tiredness, stop the activity and rest. Please notify your physicians office if you experience any of these symptoms and they are not relieved by rest please call 911! Referrals: Magda Garcia CNP [Partnered Physician] - 07/30/17 10:35 am Jack Bernard MD [Partnered Physician] - 08/07/17 1:00 pm (1 WEEK AFTER DISCHARGE) - Attending Attestation I examined this patient and my medical decision-making was reviewed with the Resident Physician. I agree with the documented findings, disposition and treatment plan as described except to the extent set forth below.
[2017-07-23] MEDS: *HR* OxyCODONE Immed Rel 5 MG TABLET PO PRN ×2 (11:55→22:35)
[2017-07-23 13:28] LABS: Magnesium 1.5 mg/dL (1.6-2.6); Phosphorous 3.2 mg/dL (2.3-4.7)
[2017-07-23 13:50] LABS: Ionized Calcium 1.14 mmol/L (1.15-1.35)
--- NOTE | 2017-07-23 14:15 | Pre-Sedation Evaluation ---
Pre-sedation evaluation - Pre-sedation checklist Date of procedure: 07/17/17 Recent Vitals: Last Vital Signs Temp 98.3 F 07/23/17 11:49 Pulse 101 07/23/17 11:49 Resp 24 07/23/17 11:49 BP 170/82 07/23/17 11:49 Pulse Ox 95 07/23/17 11:49 H&P (including ROS) documented in medical record: Yes Dietary Status: NPO after Midnight Possible difficult airway: No ASA Classification *see protocol: CLASS II-Mild systemic disease Plan of Care: Pt appropriate candidate for procedure/moderate/conscious sedation , Risks/benefits of procedure/sedation discussed w/ patient/family
[2017-07-23] MEDS ORDERED: 0.9 % Sodium Chloride 1,000 ML ONE ×2 (14:22→14:49)
[2017-07-23] MEDS ORDERED: Nitroglycerin 1,000 MCG/10 ML VIAL IV ONE (14:23)
[2017-07-23] MEDS ORDERED: Heparin 1,000 UNITS/500 mL NS 500 ML ONE (14:23)
[2017-07-23] MEDS ORDERED: *HR* Heparin 10,000 UNIT/10 ML VIAL ONE (14:23)
[2017-07-23] MEDS ORDERED: *HR* FentaNYL (PF) 100 MCG/2 ML VIAL ONE (14:44)
[2017-07-23] MEDS ORDERED: *HR* Midazolam HCl 2 MG/2 ML VIAL ONE (14:44)
[2017-07-23] MEDS ORDERED: *HR* Morphine 2 MG/ML SYRINGE ONE (14:56)
[2017-07-23] MEDS ORDERED: 0.9 % Sodium Chloride 1,000 ML IVC SCH (15:45)
--- NOTE | 2017-07-23 15:55 | Invasive Diagnostic Lab Proc ---
Name: Varghese Mayorga Date of Study: 07/23/2017 Date: 1940 Ht: 70.9in Medical Record#: [id number] Age: 77 Wt: 187.61lb Gender: Male BSA: 2.05 Order #: [id number] BMI: 26.27 Physicians Procedure Physician: Cesilia Oliva MD Referring MD: Referring MD: Staff Name Position Time In Jaimee Shah RT (R) Monitor 02:53 PM Dima Tesfaye RN Scrub 02:54 PM Dominic Ortega RN [employer] 02:54 PM Deloris Bhatia RN [employer] 02:54 PM Indications Indication Cardiomyopathy Procedures Performed Procedure CORONARY ARTERY ANGIO S&I Pre-Procedure Checklist Informed consent is complete signed and on chart. H&P is on chart. ID band is on and ID verified with patient. Patient NPO for procedure The procedure was described for the patient and questions were answered. ECG is on chart. Plan of Care Patient will tolerate the procedure without complications. Adequate level of comfort will be maintained. Hemodynamics will remain stable Patient will recover from procedure without complications. Respiratory function will be maintained. Cardiac rhythm will remain stable. Patient temperature will be maintained. Patient and/or family have verbalized understanding of the procedure. Patient Education Intravenous Access Time IV Size Location DC'd Fluid/Drip Rate Units RN 02:46 PM 20g 1 1/4" Patent On Arrival Rt Hand 0.9NaCl 25 ml/hr Dominic Ortega RN Allergies NKDA Vital Signs Time BP (mmHg) HR (bpm) O2 Sat. RR (bpm) LOC 02:56 PM / % 5 = Fully awake and oriented or at pre-proc level 02:56 PM / % 4 = Oriented but drowsy 03:11 PM / % 4 = Oriented but drowsy 03:27 PM / % 4 = Oriented but drowsy 02:53 PM 163 / 100 106 96 % 16 02:58 PM 159 / 86 98 95 % 21 03:08 PM 145 / 80 92 99 % 20 03:13 PM 133 / 79 96 96 % 20 03:17 PM 149 / 93 96 97 % 23 03:23 PM 129 / 76 94 98 % 13 03:28 PM 137 / 74 95 95 % 17 03:33 PM 150 / 90 97 95 % 21 03:38 PM 154 / 87 98 98 % 19 03:43 PM 138 / 102 96 95 % 14 Procedural Medications Time Medication Dose Units Method Given By 02:56 PM Oxygen 2 L/min nasal cannula Dominic Ortega RN 02:56 PM Versed 1 mg Intravenous Dominic Ortega RN 02:56 PM Fentanyl 25 mcg Intravenous Dominic Ortega RN 02:56 PM Morphine 1 mg Intravenous Dominic Ortega RN 03:01 PM Lidocaine 2% 10 ml Subcutaneous Cesilia Oliva MD 03:10 PM Heparin 1000 units Intravenous Dominic Ortega RN 03:25 PM Versed 1 mg Intravenous Deloris Bhatia RN ASA Classification: CLASS II- Mild systemic disease (i.e. well-controlled diabetes, hypertension, asthma, cigarette smoking) Dariel Score Preprocedure Postprocedure Activity 2- Moves 4 extremities sustained head lift Activity 2- Moves 4 extremities sustained head lift Circulation 2- SBP +/= 20 points of pre-anesthetic level Circulation 2- SBP +/= 20 points of pre-anesthetic level Consciousness 2- Awake and alert oriented x 3 Consciousness 2- Awake and alert oriented x 3 O2 Saturation 2- Able to maintain O2 satruation of 92% on room air O2 Saturation 2- Able to maintain O2 satruation of 92% on room air Respiratory 2- Able to deep breathe and cough well Respiratory 2- Able to deep breathe and cough well Total Score 10 Total Score 10 Contrast Agent: Isovue Diagnostic Contrast: 115 ml Total Contrast: 115 ml Fluoro Dose: 717 mGy Activated Clotting Time Time Seconds to Clot 03:33 PM 154 Procedure Log Time Note Enter By 02:46 PM CathStat 02:46 PM [ Start or Stop Vital ] 02:52 PM Vitals capture started with the following parameters, Patient=Adult, Interval=5 min, Initial Efbkbhhg=240 mmHg, Deflation Rate=5 mmHg, Cuff placed on Left Arm 02:53 PM JD=804 bpm, EEMI=001/100 mmhg, SpO2=96.0 %, Resp=16 B/min 02:53 PM [ Start or Stop Vital ] 02:53 PM Recorded ECG: OT=805 Condition=Condition 1 02:53 PM Pt arrived to labor delivery rn 2 at 14:53 twilson 02:53 PM Physician arrived 14:53 tw 02:53 PM Meet and kolby completed 02:53 PM Sign in performed according to hospital policy. tw 02:53 PM Procedure start 14:53 twilson 02:53 PM ASA Class CLASS II- Mild systemic disease (i.e. well-controlled diabetes, hypertension, asthma, cigarette smoking) twilson 02:53 PM Patient charges- Angio tray pack, Navilyst 3mm J, Pulse Oximetry and ACIST tubing and transducer twilson 02:54 PM Jaimee Shah RT (R) Position: Monitor Time in: 14:53 twilson 02:54 PM Dima Tesfaye RN Position: Scrub Time in: : twilson 02:54 PM Dominic Ortega RN Position: [employer] Time in: : twilson 02:54 PM Deloris Bhatia RN Position: [employer] Time in: : twilson 02:54 PM Case Delayed NO twilson 02:55 PM Hair removed from procedure site in procedure lab using clippers. Bilateral groin prepped with Chloraprep by Deloris Bhatia RN, safety strap applied then patient was draped. Skin intact. tw:56 PM Time: 14:56 Oxygen on at 2 L/min per nasal cannula by Dominic Ortega RN twilson 02:56 PM Time: 14:56 Versed 1 mg Intravenous Given by Dominic Ortega RN twilson 02:56 PM Time: 14:56 Fentanyl 25 mcg Intravenous Given by Dominic Ortega RN twilson 02:56 PM Time: 14:56 Patient comfortable and pain free: Yes twilson 02:56 PM Time: 14:56LOC: 5 = Fully awake and oriented or at pre-proc level twilson 02:57 PM Time: 14:56 Morphine 1 mg Intravenous Given by Dominic Ortega RN twilson 02:58 PM HR=98 bpm, KMCD=264/86 mmhg, SpO2=95.0 %, Resp=21 B/min 03:01 PM Time out performed according to hospital policy twilson 03:03 PM Time: 15:01 10 ml Lidocaine 2% to left groin Subcutaneous Given by Cesilia Oliva MD twilson 03:04 PM Micro-Introducer Kit utilized for sheath placement twilson 03:04 PM Access obtained by percutaneous puncture. 5Fr 10cm Terumo [place] sheath placed in left Femoral artery. [id number] twilson 03:04 PM 5Fr FR 4 catheter inserted over the wire DNC twilson 03:04 PM Wire removed, intact. twilson 03:06 PM Recorded Pressure: Ao, HR=98, Condition=Condition 1 (Aorta) Ao 121/66/92 03:06 PM RCA angiography performed in multiple views. twilson 03:07 PM Recorded Pressure: Ao, HR=91, Condition=Condition 1 (Aorta) Ao 110/72/90 03:07 PM Recorded Pressure: Ao, HR=89, Condition=Condition 1 (Aorta) Ao 106/69/87 03:08 PM HR=92 bpm, PPQK=537/80 mmhg, SpO2=99.0 %, Resp=20 B/min 03:08 PM Lesion found in Distal RCA. Pre Stenosis: 65 Pre TUCKER Flow: twilson 03:08 PM Right Coronary, Right Posterior Descending Arteries with Right Posterolateral and Acute Marginal branches with 65 % stenosis. If graft is supplying this area, 0 % stenosis twilson 03:09 PM Wire reinserted and catheter removed. twilson 03:09 PM 5Fr FL 4 catheter inserted over the wire DN twilson 03:10 PM Time: 15:10 Heparin 1000 units Intravenous Given by Dominic Ortega RN twilson 03:10 PM Wire removed, intact. twilson 03:10 PM LCA angiography performed in multiple views. twilson 03:11 PM Recorded Pressure: Ao, ZD=577, Condition=Condition 1 (Aorta) Ao 111/60/82 03:11 PM Time: 14:56 Patient comfortable and pain free: Yes twilson 03:11 PM Time: 14:56LOC: 4 = Oriented but drowsy twilson 03:12 PM Recorded Pressure: Ao, HR=95, Condition=Condition 1 (Aorta) Ao 101/55/75 03:12 PM Wire reinserted. twilson 03:13 PM HR=96 bpm, SYHE=488/79 mmhg, SpO2=96.0 %, Resp=20 B/min 03:13 PM Catheter removed, intact. twilson 03:15 PM Lesion found in Mid LAD. Pre Stenosis: 40 Pre TUCKER Flow: twilson 03:17 PM Lesion found in Ostial LAD. Pre Stenosis: 50 Pre TUCKER Flow: twilson 03:17 PM HR=96 bpm, IMXA=207/93 mmhg, SpO2=97.0 %, Resp=23 B/min 03:19 PM Proximal Left Anterior Descending Coronary Artery with 50% stenosis. If graft is supplying this territory, 0 % stenosis. twilson 03:19 PM Coronary Dominance: right twilson 03:19 PM Mid/Distal Left Anterior Descending Coronary Artery and diagonal branches with 40% stenosis. If graft is supplying this area, 0 % stenosis twilson 03:20 PM LCA angiography performed in multiple views. twilson 03:20 PM Recorded Pressure: Ao, HR=96, Condition=Condition 1 (Aorta) Ao 112/57/83 03:23 PM HR=94 bpm, PDPE=497/76 mmhg, SpO2=98.0 %, Resp=13 B/min 03: PM Time: 15:25 Versed 1 mg Intravenous Given by Deloris Bhatia RN twilson : PM Time: 15:11LOC: 4 = Oriented but drowsy twilson : PM Time: 15:11 Patient comfortable and pain free: Yes twilson : PM Wire reinserted and catheter removed. twilson 03:28 PM Procedure completed at 15:27 twilson 03: PM HR=95 bpm, WHQL=266/74 mmhg, SpO2=95.0 %, Resp=17 B/min 03: PM Sign out completed: Radiation Dose 717.48 mGy Fluoro Time: 5.1 Isovue 370 - 200ml contrast 115 ml given by Cesilia Oliva MD. Complications: NoneCardiac Rehab Consult needed: NoConfirmed administered medications: Yes twilson 03:28 PM Isovue 370 - 500ml,1 Bottle(s) used. twilson 03:28 PM Post ECG NSR twilson 03:28 PM Post Blood Pressure 137/74 twilson 03:29 PM 15:29 Post Pulses Bilateral radial 2+ twilson 03:29 PM Information taught Cardiac Cath twilson 03:29 PM Education needs Procedure, Plan of Care, and Responsibilities of Patient in Care twilson 03:30 PM Learning barriers :None twilson 03:30 PM Education Methods Verbal twilson 03:30 PM Education evaluation Able to repeat information twilson 03:30 PM Site status No bleeding/hematoma - Lt Groin as reported by Dima Tesfaye RN at 15:30 twilson 03:32 PM No family present at this time. twilson 03:33 PM At 15:33 the ACT was 154 seconds. twilson 03:33 PM HR=97 bpm, GSPU=371/90 mmhg, SpO2=95.0 %, Resp=21 B/min 03:38 PM HR=98 bpm, UUOS=696/87 mmhg, SpO2=98.0 %, Resp=19 B/min 03:39 PM Report given to Mary CROSS Pt taken to 2N Room #3. 15:39 twilson 03:39 PM Arterial sheath pulled using manual compression and V+ Pad for 15 minutes by Dominic Ortega RN twilson 03:42 PM Time: 15:27 Patient comfortable and pain free: Yes twilson 03:42 PM Time: 15:27LOC: 4 = Oriented but drowsy twilson 03:43 PM HR=96 bpm, LOAJ=767/102 mmhg, SpO2=95.0 %, Resp=14 B/min 03:44 PM Vitals capture stopped. 03:48 PM Site status No bleeding/hematoma - Rt Groin as reported by Dominic Ortega RN at 15:48 twilson 03:48 PM Opsite applied twilson 03:48 PM Patient out of room: 15:48 twilson Complications Complication None Hemodynamics Pressures Site Systolic/A Wave Diastolic/V Wave Mean AO 121 66 92 AO 110 72 90 AO 106 69 87 AO 111 60 82 AO 101 55 75 AO 112 57 83 Post Procedure Information Blood Pressure: 137/74 mmHg Rhythm: NSR Post procedural instructions were given Closure Device Time Device Success/Fail 07/23/2017 3:34:00 PM Manual Compression Site Checks Time Location Status Staff Sheath In? Note 03:30 PM Lt Groin No bleeding/hematoma Dima Tesfaye RN 03:48 PM Rt Groin No bleeding/hematoma Dominic Ortega RN Pulses Time Site Pre-Procedure Post-Procedure Note 07/23/2017 2:46:00 PM Bilateral DP & PT 07/23/2017 2:52:00 PM Bilateral radial 2+ 3:29:00 PM Bilateral radial 2+ Updated by Jaimee Shah RT (R) on 07/23/2017 3:48:57 PM electronically signed on 07/23/2017 3:49:41 PM with status of Final
--- NOTE | 2017-07-23 15:59 | Invasive Diagnostic Lab Proc ---
Name: Varghese Mayorga Date of Study: 07/23/2017 Date: 1940 Ht: 70.9in Medical Record#: [id number] Age: 77 Wt: 187.61lb Gender: Male BSA: 2.05 Order #: [id number] BMI: 26.27 Physicians Procedure Physician: Cesilia Oliva MD Referring MD: Referring MD: Staff Name Position Time In Jaimee Shah RT (R) Monitor 02:53 PM Dima Tesfaye RN Scrub 02:54 PM Dominic Ortega RN [employer] 02:54 PM Deloris Bhatia RN [employer] 02:54 PM Indications Indication Cardiomyopathy Procedures Performed Procedure CORONARY ARTERY ANGIO S&I Pre-Procedure Checklist Informed consent is complete signed and on chart. H&P is on chart. ID band is on and ID verified with patient. Patient NPO for procedure The procedure was described for the patient and questions were answered. ECG is on chart. Plan of Care Patient will tolerate the procedure without complications. Adequate level of comfort will be maintained. Hemodynamics will remain stable Patient will recover from procedure without complications. Respiratory function will be maintained. Cardiac rhythm will remain stable. Patient temperature will be maintained. Patient and/or family have verbalized understanding of the procedure. Patient Education Intravenous Access Time IV Size Location DC'd Fluid/Drip Rate Units RN 02:46 PM 20g 1 1/4" Patent On Arrival Rt Hand 0.9NaCl 25 ml/hr Dominic Ortega RN Allergies NKDA Vital Signs Time BP (mmHg) HR (bpm) O2 Sat. RR (bpm) LOC 02:56 PM / % 5 = Fully awake and oriented or at pre-proc level 02:56 PM / % 4 = Oriented but drowsy 03:11 PM / % 4 = Oriented but drowsy 03:27 PM / % 4 = Oriented but drowsy 02:53 PM 163 / 100 106 96 % 16 02:58 PM 159 / 86 98 95 % 21 03:08 PM 145 / 80 92 99 % 20 03:13 PM 133 / 79 96 96 % 20 03:17 PM 149 / 93 96 97 % 23 03:23 PM 129 / 76 94 98 % 13 03:28 PM 137 / 74 95 95 % 17 03:33 PM 150 / 90 97 95 % 21 03:38 PM 154 / 87 98 98 % 19 03:43 PM 138 / 102 96 95 % 14 Procedural Medications Time Medication Dose Units Method Given By 02:56 PM Oxygen 2 L/min nasal cannula Dominic Ortega RN 02:56 PM Versed 1 mg Intravenous Dominic Ortega RN 02:56 PM Fentanyl 25 mcg Intravenous Dominic Ortega RN 02:56 PM Morphine 1 mg Intravenous Dominic Ortega RN 03:01 PM Lidocaine 2% 10 ml Subcutaneous Cesilia Oliva MD 03:10 PM Heparin 1000 units Intravenous Dominic Ortega RN 03:25 PM Morphine 1 mg Intravenous Deloris Bhatia RN ASA Classification: CLASS II- Mild systemic disease (i.e. well-controlled diabetes, hypertension, asthma, cigarette smoking) Dariel Score Preprocedure Postprocedure Activity 2- Moves 4 extremities sustained head lift Activity 2- Moves 4 extremities sustained head lift Circulation 2- SBP +/= 20 points of pre-anesthetic level Circulation 2- SBP +/= 20 points of pre-anesthetic level Consciousness 2- Awake and alert oriented x 3 Consciousness 2- Awake and alert oriented x 3 O2 Saturation 2- Able to maintain O2 satruation of 92% on room air O2 Saturation 2- Able to maintain O2 satruation of 92% on room air Respiratory 2- Able to deep breathe and cough well Respiratory 2- Able to deep breathe and cough well Total Score 10 Total Score 10 Contrast Agent: Isovue Diagnostic Contrast: 115 ml Total Contrast: 115 ml Fluoro Dose: 717 mGy Activated Clotting Time Time Seconds to Clot 03:33 PM 154 Procedure Log Time Note Enter By 02:46 PM CathStat 02:46 PM [ Start or Stop Vital ] 02:52 PM Vitals capture started with the following parameters, Patient=Adult, Interval=5 min, Initial Mrnqumwx=739 mmHg, Deflation Rate=5 mmHg, Cuff placed on Left Arm 02:53 PM KX=793 bpm, QBKX=836/100 mmhg, SpO2=96.0 %, Resp=16 B/min 02:53 PM [ Start or Stop Vital ] 02:53 PM Recorded ECG: PB=794 Condition=Condition 1 02:53 PM Pt arrived to finishing lab technician 2 at 14:53 twilson 02:53 PM Physician arrived 14:53 tw 02:53 PM Meet and greet completed 02:53 PM Sign in performed according to hospital policy. tw 02:53 PM Procedure start 14:53 tw 02:53 PM ASA Class CLASS II- Mild systemic disease (i.e. well-controlled diabetes, hypertension, asthma, cigarette smoking) twilson 02:53 PM Patient charges- Angio tray pack, Navilyst 3mm J, Pulse Oximetry and ACIST tubing and transducer twilson 02:54 PM Jaimee Shah RT (R) Position: Monitor Time in: 14:53 twilson 02:54 PM Dima Tesfaye RN Position: Scrub Time in: : twilson 02:54 PM Dominic Ortega RN Position: [employer] Time in: : twilson 02:54 PM Deloris Bhatia RN Position: [employer] Time in: : twilson 02:54 PM Case Delayed NO twilson 02:55 PM Hair removed from procedure site in procedure lab using clippers. Bilateral groin prepped with Chloraprep by Deloris Bhatia RN, safety strap applied then patient was draped. Skin intact. tw:56 PM Time: 14:56 Oxygen on at 2 L/min per nasal cannula by Dominic Ortega RN twilson :56 PM Time: 14:56 Versed 1 mg Intravenous Given by Dominic Ortega RN twilson 02:56 PM Time: 14:56 Fentanyl 25 mcg Intravenous Given by Dominic Ortega RN twilson 02:56 PM Time: 14:56 Patient comfortable and pain free: Yes tw 02:56 PM Time: 14:56LOC: 5 = Fully awake and oriented or at pre-proc level twilson 02:57 PM Time: 14:56 Morphine 1 mg Intravenous Given by Dominic Ortega RN twilson 02:58 PM HR=98 bpm, WDDE=940/86 mmhg, SpO2=95.0 %, Resp=21 B/min 03:01 PM Time out performed according to hospital policy twilson 03:03 PM Time: 15:01 10 ml Lidocaine 2% to left groin Subcutaneous Given by Cesilia Oliva MD twilson 03:04 PM Micro-Introducer Kit utilized for sheath placement twilson 03:04 PM Access obtained by percutaneous puncture. 5Fr 10cm Terumo [place] sheath placed in left Femoral artery. [id number] twilson 03:04 PM 5Fr FR 4 catheter inserted over the wire DNC twilson 03:04 PM Wire removed, intact. twilson 03:06 PM Recorded Pressure: Ao, HR=98, Condition=Condition 1 (Aorta) Ao 121/66/92 03:06 PM RCA angiography performed in multiple views. twilson 03:07 PM Recorded Pressure: Ao, HR=91, Condition=Condition 1 (Aorta) Ao 110/72/90 03:07 PM Recorded Pressure: Ao, HR=89, Condition=Condition 1 (Aorta) Ao 106/69/87 03:08 PM HR=92 bpm, ZRPV=879/80 mmhg, SpO2=99.0 %, Resp=20 B/min 03:08 PM Lesion found in Distal RCA. Pre Stenosis: 65 Pre TUCKER Flow: twilson 03:08 PM Right Coronary, Right Posterior Descending Arteries with Right Posterolateral and Acute Marginal branches with 65 % stenosis. If graft is supplying this area, 0 % stenosis twilson 03:09 PM Wire reinserted and catheter removed. twilson 03:09 PM 5Fr FL 4 catheter inserted over the wire DN twilson 03:10 PM Time: 15:10 Heparin 1000 units Intravenous Given by Dominic Ortega RN twilson 03:10 PM Wire removed, intact. twilson 03:10 PM LCA angiography performed in multiple views. twilson 03:11 PM Recorded Pressure: Ao, SR=363, Condition=Condition 1 (Aorta) Ao 111/60/82 03:11 PM Time: 14:56 Patient comfortable and pain free: Yes twilson 03:11 PM Time: 14:56LOC: 4 = Oriented but drowsy twilson 03:12 PM Recorded Pressure: Ao, HR=95, Condition=Condition 1 (Aorta) Ao 101/55/75 03:12 PM Wire reinserted. twilson 03:13 PM HR=96 bpm, ZSLB=227/79 mmhg, SpO2=96.0 %, Resp=20 B/min 03:13 PM Catheter removed, intact. twilson 03:15 PM Lesion found in Mid LAD. Pre Stenosis: 40 Pre TUCKER Flow: twilson 03:17 PM Lesion found in Ostial LAD. Pre Stenosis: 50 Pre TUCKER Flow: twilson 03:17 PM HR=96 bpm, VLEZ=389/93 mmhg, SpO2=97.0 %, Resp=23 B/min 03:19 PM Proximal Left Anterior Descending Coronary Artery with 50% stenosis. If graft is supplying this territory, 0 % stenosis. twilson 03:19 PM Coronary Dominance: right twilson 03:19 PM Mid/Distal Left Anterior Descending Coronary Artery and diagonal branches with 40% stenosis. If graft is supplying this area, 0 % stenosis twilson 03:20 PM LCA angiography performed in multiple views. twilson 03:20 PM Recorded Pressure: Ao, HR=96, Condition=Condition 1 (Aorta) Ao 112/57/83 03:23 PM HR=94 bpm, MMJQ=405/76 mmhg, SpO2=98.0 %, Resp=13 B/min 03: PM Time: 15:25 Morphine 1 mg Intravenous Given by Deloris Bhatia RN twilson : PM Time: 15:11LOC: 4 = Oriented but drowsy twilson : PM Time: 15:11 Patient comfortable and pain free: Yes twilson 03: PM Wire reinserted and catheter removed. twilson 03:28 PM Procedure completed at 15:27 twilson 03:28 PM HR=95 bpm, KAUQ=702/74 mmhg, SpO2=95.0 %, Resp=17 B/min 03: PM Sign out completed: Radiation Dose 717.48 mGy Fluoro Time: 5.1 Isovue 370 - 200ml contrast 115 ml given by Cesilia Oliva MD. Complications: NoneCardiac Rehab Consult needed: NoConfirmed administered medications: Yes twilson 03: PM Isovue 370 - 500ml,1 Bottle(s) used. twilson 03:28 PM Post ECG NSR twilson 03:28 PM Post Blood Pressure 137/74 twilson 03:29 PM 15:29 Post Pulses Bilateral radial 2+ twilson 03:29 PM Information taught Cardiac Cath twilson 03:29 PM Education needs Procedure, Plan of Care, and Responsibilities of Patient in Care twilson 03:30 PM Learning barriers :None twilson 03:30 PM Education Methods Verbal twilson 03:30 PM Education evaluation Able to repeat information twilson 03:30 PM Site status No bleeding/hematoma - Lt Groin as reported by Dima Tesfaye RN at 15:30 twilson 03:32 PM No family present at this time. twilson 03:33 PM At 15:33 the ACT was 154 seconds. twilson 03:33 PM HR=97 bpm, VZQE=176/90 mmhg, SpO2=95.0 %, Resp=21 B/min 03:38 PM HR=98 bpm, EDMO=127/87 mmhg, SpO2=98.0 %, Resp=19 B/min 03:39 PM Report given to Mary CROSS Pt taken to 2N Room #3. 15:39 twilson 03:39 PM Arterial sheath pulled using manual compression and V+ Pad for 15 minutes by Dominic Ortega RN twilson 03:42 PM Time: 15:27 Patient comfortable and pain free: Yes twilson 03:42 PM Time: 15:27LOC: 4 = Oriented but drowsy twilson 03:43 PM HR=96 bpm, URKF=404/102 mmhg, SpO2=95.0 %, Resp=14 B/min 03:44 PM Vitals capture stopped. 03:48 PM Site status No bleeding/hematoma - Rt Groin as reported by Dominic Ortega RN at 15:48 twilson 03:48 PM Opsite applied twilson 03:48 PM Patient out of room: 15:48 twilson Complications Complication None Hemodynamics Pressures Site Systolic/A Wave Diastolic/V Wave Mean AO 121 66 92 AO 110 72 90 AO 106 69 87 AO 111 60 82 AO 101 55 75 AO 112 57 83 Post Procedure Information Blood Pressure: 137/74 mmHg Rhythm: NSR Post procedural instructions were given Closure Device Time Device Success/Fail 07/23/2017 3:34:00 PM Manual Compression Site Checks Time Location Status Staff Sheath In? Note 03:30 PM Lt Groin No bleeding/hematoma Dima Tesfaye RN 03:48 PM Rt Groin No bleeding/hematoma Dominic Ortega RN Pulses Time Site Pre-Procedure Post-Procedure Note 07/23/2017 2:46:00 PM Bilateral DP & PT 07/23/2017 2:52:00 PM Bilateral radial 2+ 3:29:00 PM Bilateral radial 2+ Updated by Jaimee Shah RT (R) on 07/23/2017 3:53:36 PM electronically signed on 07/23/2017 3:54:26 PM with status of Final
[2017-07-23] MEDS: Furosemide 40 MG/4 ML VIAL IVP SCH (17:17)
--- NOTE | 2017-07-23 17:56 | Internal Med Progress Note ---
Date of Encounter: 07/23/17 Time of Encounter: 11:00 - Assessment and plan (1) Sepsis Current Visit: Yes Status: Resolved Assessment and plan: Presented with leukocytosis, tachycardia due to B/L ischemic leg ulcers and mild cellulitis. Persistent leukocytosis, but improved cellulitis. Antibiotics as below. Infectious disease is following and appreciate recommendations. Qualifiers: Sepsis type: sepsis due to unspecified organism Qualified Code(s): A41.9 - Sepsis, unspecified organism (2) Bacteremia Current Visit: Yes Status: Acute Assessment and plan: Secondary to infected foot ulcers preliminary blood culture reports anaeorobic gram negative rods pt is on Zosyn worsening of leukocytosis noted continue IV fluids f/u repeat blood culture results ID on board (3) Acute kidney injury Current Visit: Yes Status: Acute Assessment and plan: Nonoliguric. Serum creatinine slightly improved to 1.34. YUMIKO, likely due to use of antibiotics- Vancomycin and Zosyn. Monitor closely. (4) CHF (congestive heart failure) Current Visit: Yes Status: Acute Assessment and plan: Echocardiogram showed following: LVEF 35-40%. Moderate global and segmental left ventricular systolic dysfunction. Moderate pulmonary hypertension. Moderate-severe pulmonic regurgitation. Diastolic dysfunction, NOS -Cardiology following and appreciate recommendations. Qualifiers: Congestive heart failure type: systolic Congestive heart failure chronicity : acute Qualified Code(s): I50.21 - Acute systolic (congestive) heart failure (5) Elevated troponin Current Visit: Yes Status: Acute Assessment and plan: -Likely due to demand ischemia due to underlying sepsis. -Cardiology with recommendation for a cardiac catheter which was done today. (6) Diabetes Current Visit: Yes Status: Chronic Assessment and plan: Blood sugars continue to be elevated intermittently. Will increase basal and SSI , add nutritional insulin. Imperative for tight blood sugar control due to non- healing vascular wounds. Diabetic diet. H/o- medical noncompliance with poor outpatient followup. 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 mellitus technician terminal and repeater insulin use: without technician terminal and repeater use Qualified Code( s): E11.621 - Type 2 diabetes mellitus with foot ulcer; L97.509 - Non-pressure chronic ulcer of other part of unspecified foot with unspecified severity; L97.509 - Non-pressure chronic ulcer of other part of unspecified foot with unspecified severity; L97.509 - Non-pressure chronic ulcer of other part of unspecified foot with unspecified severity; L97.509 - Non-pressure chronic ulcer of other part of unspecified foot with unspecified severity (7) HTN (hypertension) Current Visit: Yes Status: Chronic Assessment and plan: BP noted to be somewhat uncontrolled. Continue current management.. Qualifiers: Hypertension type: essential hypertension Qualified Code(s): I10 - Essential (primary) hypertension (8) HLD (hyperlipidemia) Current Visit: Yes Status: Chronic Assessment and plan: Continue Statin. Qualifiers: Hyperlipidemia type: unspecified Qualified Code(s): E78.5 - Hyperlipidemia , unspecified (9) Anemia Current Visit: Yes Status: Acute Assessment and plan: H&H low but acceptable no acute bleeding reported at this time continue to monitor Qualifiers: Anemia type: unspecified type Qualified Code(s): D64.9 - Anemia, unspecified (10) Atherosclerosis of [place] arteries of right leg with ulceration of other part of foot Current Visit: Yes Status: Chronic Assessment and plan: Vascular surgery on board. Patient has significant vascular disease in B/L LE. Underwent right popliteal angioplasty and atherectomy. Plan for left leg revascularization procedure. Echocardiogram shows significant systolic dysfunction with EF 35-40%. Cardiology consulted for clearance and further evaluation, like [facility]. (11) Arterial leg ulcer Current Visit: Yes Status: Acute Assessment and plan: Pt will need vascular surgery once clinically stable (12) DVT prophylaxis Current Visit: Yes Status: Acute Assessment and plan: Heparin SQ - Subjective Interval history: No acute events overnight. - Constitutional Vitals: Temp Pulse Resp BP Pulse Ox 97.8 F 91 18 155/79 97 07/23/17 17:00 07/23/17 17:00 07/23/17 17:00 07/23/17 17:00 07/23/17 17:00 General appearance: Present: cooperative, A&O X 3, answers questions appropriately - Respiratory Respiratory exam: Present: CTAB. Absent: accessory muscle use, rales, rhonchi, wheezes - Cardiovascular Cardiovascular exam: Present: RRR, +S1, +S2. Absent: diastolic murmur, gallop, rubs, systolic murmur Internal Medicine: Result - Labs CBC & Chem 7: 07/23/17 04:36 07/23/17 04:36 Labs: Short CBC 07/23/17 Range/Units 04:36 WBC 20.4 H (4.3-11.1) K/mcL Hgb 9.0 L (12.9-16.9) g/dL Hct 29.2 L (37.5-50.1) % Plt Count 388 (140-400) K/mcL Neutrophils # 17.8 H (1.6-8.9) K/mcL BMP 07/23/17 04:36 Sodium 141 Potassium 4.9 H Chloride 109 Carbon Dioxide 23 BUN 40 H Creatinine 1.34 H Glucose 147 H Calcium 8.9 - ABG Interpretation ABG results: PT/INR, D-dimer PT 12.5 Seconds (9.4-12.1) H 07/16/17 01:45 - Impressions Impressions Foot MRI 07/22/17 12:54 IMPRESSION: 1. Posterior soft tissue ulceration. Adjacent and circumferential ankle subcutaneous edema compatible with cellulitis. No drainable fluid collection. 2. Mild focal bone marrow edema in the far posterolateral calcaneus with reticular T1 signal compatible with early osteomyelitis versus noninfectious reactive osteitis. D/ / Christofer Neely MD / Christofer Neely MD Interpreting Provider: Christofer Neely MD Consult Discharge Plan - Plan Referrals: Magda Garcia CNP [Partnered Physician] - 07/30/17 10:35 am Jack Bernard MD [Partnered Physician] - 08/07/17 1:00 pm (1 WEEK AFTER DISCHARGE)
[2017-07-23] MEDS: Insulin DETEMIR 100 UNIT/ML X5UNITS SQ SCH (21:00)
--- NOTE | 2017-07-23 22:39 | Vascular/[facility] Progress Note ---
Date of Encounter: 07/23/17 Time of Encounter: 10:30 - Assessment and plan (1) Atherosclerosis of [place] arteries of right leg with ulceration of other part of foot Current Visit: Yes Status: Chronic The patient has bilateral foot ulcerations due to peripheral vascular disease. He underwent a right popliteal atherectomy and angioplasty. His right foot is warm and has polyphasic dorsalis pedis artery signals. 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 His left pedal signals are diminished due to a left superficial femoral artery occlusion. He also has a left posterior tibial and peroneal artery occlusion. He will require revascularization after his WBC has decreased and his creatinine has improved. Continue with ASA and Plavix. (2) Atherosclerosis of [place] arteries of left leg with ulceration of other part of foot Current Visit: Yes Status: Chronic (3) Diabetes Current Visit: Yes Status: Chronic He was counseled regarding atherosclerotic risk factor reduction. 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 mellitus residential insulin use: without ferry terminal supervisor use Qualified Code( s): E11.621 - Type 2 diabetes mellitus with foot ulcer; L97.509 - Non-pressure chronic ulcer of other part of unspecified foot with unspecified severity; L97.509 - Non-pressure chronic ulcer of other part of unspecified foot with unspecified severity; L97.509 - Non-pressure chronic ulcer of other part of unspecified foot with unspecified severity; L97.509 - Non-pressure chronic ulcer of other part of unspecified foot with unspecified severity (4) HTN (hypertension) Current Visit: Yes Status: Chronic Qualifiers: Hypertension type: essential hypertension Qualified Code(s): I10 - Essential (primary) hypertension (5) HLD (hyperlipidemia) Current Visit: Yes Status: Chronic Qualifiers: Hyperlipidemia type: unspecified Qualified Code(s): E78.5 - Hyperlipidemia , unspecified - Subjective Interval history: The patient reports that he is comfortable today except chronic foot and leg pain. He denies fevers or chills. He denies chest pain or shortness of breath. - Physical Examination General: Present: Conversant HEENT: Present: Pupils equal Cardiac: Present: Reg Rate and Rhythm Lungs: Present: Normal Breath Sounds, No Wheeze, Rales, Rhonchi Neuro: Present: Alert and responsive, Motor nerves grossly intact, Sensory nerves grossly intact Vascular: Present: Normal capillary refill, Edema (trace) Abdomen: Present: Soft, Non-tender Skin: Present: Wound/ulcer(s) (bilateral lower extremity ulcerations, cellulitis , no fluctuance, no abscess) Results 07/29/17 07:45 07/29/17 07:45 Lab Results, Last 24 hours 07/23/17 07/23/17 07/23/17 04:36 04:36 13:01 WBC 20.4 H Hgb 9.0 L Hct 29.2 L Plt Count 388 Sodium 141 Potassium 4.9 H Chloride 109 Carbon Dioxide 23 BUN 40 H Creatinine 1.34 H Glucose 147 H Calcium 8.9 Magnesium 1.8 1.5 L - Imaging / Other Tests MRI/MRA: report reviewed (1. Posterior soft tissue ulceration. Adjacent and circumferential ankle subcutaneous edema compatible with cellulitis. No drainable fluid collection. 2. Mild focal bone marrow edema in the far posterolateral calcaneus with reticular T1 signal compatible with early osteomyelitis versus noninfectious reactive osteitis.) Consult Discharge Plan - Plan Additional Instructions: RISK FACTORS: STOP SMOKING: If you smoke, STOP. Smoking or tobacco use significantly increases your risk of heart disease because nicotine causes the arteries to narrow or constrict. It also causes fats to stick to the artery. Your chances of having a heart attack are greatly increased if you continue to smoke. For more information, call the education line for smoking cessation 6-441-HZEXZSI EAT A LOW FAT/CHOLESTEROL/SODIUM DIET: This diet may help reduce your chances of having a heart attack. LIFTING: Avoid lifting anything more than 10 pounds for 5-7 days Prior to straining, laughing, sneezing and/or coughing, apply manual pressure directly over insertion site. ACTIVITY: You may walk or climb stairs as tolerated You can resume sexual activity as tolerated In general, you are encouraged to engage in a minimum of 30 minutes or more of moderate intensity physical activity, such as brisk walking, daily or at least 3 -4 times weekly BATHING Do not submerge the site into water (bath tub, hot tub, swimming pool) for 1 week. This can be a source for infection into the blood stream. You may shower after 24 hours SITE CARE: After 24 hours, you may remove the dressing and leave the site open to air. Keep the site clean and dry. Clean gently and pat dry. You can expect bruising and tenderness that gradually resolve within a week or two. Return to work as instructed per your physician Resume driving as instructed per physician Keep all scheduled follow up appointments Resume medications as instructed IMPORTANT: If prescribed a Platelet Aggregation Inhibitor such as, Plavix, Brilinta or Effient: Duration of therapy is minimum one year These medications are often used in combination with Aspirin in prevention of future heart attacks Never discontinue unless consult with your Community Nutrition Educator STROKE (CVA) Risk factors for a stroke are: Age, cigarette smoking, diabetes, excessive alcohol consumption, family history, high blood pressure, overweight, physical inactivity, prior stroke, heart attack, diagnosis of carotid artery stenosis or other artery disease. Warning signs: Sudden numbness or weakness of the face, arm or leg; especially on one side of the body, sudden confusion, trouble speaking or understanding, sudden trouble seeing in one or both eyes, sudden trouble walking, dizziness, loss of balance or coordination, sudden severe headache with no cause. Call 911 or go to the Emergency Room. CONGESTIVE HEART FAILURE: If you have been diagnosed with Congestive Heart Failure (CHF) and your symptoms return, make an appointment with your physician Weigh yourself daily. Notify your physician if you have a weight gain of two or more pounds in one day or five or more pounds in one week. If you experience any difficulty breathing, please call 911 BLEEDING: Although the risk of bleeding is minimal, it can happen. If you have any bleeding from the site, apply firm pressure above the puncture site for 10-15 minutes. If the bleeding does not stop, continue manual pressure and call 911 Contact your physician if: You develop a fever greater than 101 degrees Fahrenheit Your site becomes reddened or has any drainage You have an increase in pain or burning at the site or if a large knot forms at the site. If you experience chest pain, shortness of breath, dizziness, or extreme tiredness, stop the activity and rest. Please notify your physicians office if you experience any of these symptoms and they are not relieved by rest please call 911! Referrals: Magda Garcia CNP [Partnered Physician] - 07/30/17 10:35 am Jack Bernard MD [Partnered Physician] - 10/25/17 1:00 pm (1 WEEK AFTER DISCHARGE)
[2017-07-24] MEDS: *HR* OxyCODONE Immed Rel 5 MG TABLET PO PRN ×2 (06:24→15:08)
[2017-07-24] MEDS: Piperacillin/Tazobactam 3.375 GM in D5% in Water (Mini-Bag+) 100 ML IVPB SCH ×3 (06:25→20:43)
[2017-07-24] MEDS: *HR* Heparin 5,000 UNIT/ML VIAL SQ SCH ×3 (06:26→20:43)
[2017-07-24] MEDS: Multivit/Ca/Min/Fe/FA 1 TAB TABLET PO SCH (08:37)
[2017-07-24] MEDS: Ascorbic Acid 500 MG TABLET PO SCH ×2 (08:37→20:44)
[2017-07-24] MEDS: Zinc Sulfate 220 MG CAPSULE PO SCH (08:38)
[2017-07-24] MEDS: Isosorbide MONOnitrate (24 HR) 30 MG TAB.ER.24H PO SCH (08:38)
[2017-07-24] MEDS: Insulin LISPRO 300 UNITS/3 ML VIAL SQ SCH ×7 (08:38→20:41)
[2017-07-24] MEDS: Sennosides/Docusate Sodium TABLET PO SCH ×2 (08:38→20:44)
[2017-07-24] MEDS: *HR* Morphine 2 MG/ML SYRINGE IVP PRN (08:38)
[2017-07-24] MEDS: Furosemide 40 MG/4 ML VIAL IVP SCH ×2 (08:55→18:14)
[2017-07-24] MEDS: Nystatin Cream 15 GM TUBE TP SCH (10:31)
--- NOTE | 2017-07-24 10:31 | Cardiology Progress Note ---
Date of Encounter: 07/24/17 Time of Encounter: 10:29 Assessment and Plan (1) CHF (congestive heart failure) Current Visit: Yes Status: Acute Per Cardiology: Echo showed LVEF 35-40%, Moderate global and segmental left ventricular systolic dysfunction, Moderate pulmonary hypertension, Moderate-severe pulmonic regurgitation. No known hx of CMP, no previous records available for review. Continue BB. Will avoid ACEI/ARB for now d/t YUMIKO. Recommend adding prior to d/c if renal function allows. Will DC Norvasc and increase Coreg 12.5mg PO BID-- continue to titrate as able. I/O yesterday negative 1910mL. Being diuresed on IV Lasix 40mg BID--current BMP pending. If renal function stable, recommend 24 more hours of IV diuresis then switching to PO maintenance dose. Recommend daily weights, strict I&O, 1.5L fluid restriction. LH yesterday moderate 2 vessel disease, no intervention warranted. Left femoral access site healing well. No bleeding, hematoma or ecchymosis noted. Cardiology signing off. Reconsult PRN. Will coordinate outpt follow-up in 2 weeks. Qualifiers: Congestive heart failure type: systolic Congestive heart failure chronicity : acute Qualified Code(s): I50.21 - Acute systolic (congestive) heart failure (2) Acute kidney injury Current Visit: Yes Status: Acute Per Cardiology: Improving. BMP today not yet resulted. If stable, recommend 24 more hours of IV diuresis, then switch to PO maintenance dose. (3) Anemia Current Visit: Yes Status: Acute Per Cardiology: Appears new. Denies any active bleeding or blood loss. On plavix, monitor closely. Qualifiers: Anemia type: unspecified type Qualified Code(s): D64.9 - Anemia, unspecified (4) Arterial leg ulcer Current Visit: Yes Status: Acute Per Cardiology: Podiatry and Vascular following-- "Arterial ulcer of right leg medial aspect. S/ p RLE popliteal arthrectomy with balloon angioplasty by Dr. Bernard on 07/17/17. Per Vascular will likely require LLE intervention at a later date". If surgery is warranted, intermediate risk from cardiac standpoint given CMP/ CHF. However, [facility] with moderate 2 vessel disease. (5) Elevated troponin Current Visit: Yes Status: Acute Per Cardiology: Trops 0.04 x 3, flat and adynamic. No CP. Demand ischemia suspected. (6) Atherosclerosis of [place] arteries of right leg with ulceration of other part of foot Current Visit: Yes Status: Chronic Per Cardiology: Followed by Vascular and podiatry. Discussed with Dr. Bernard, pland for surgical intervention during this hospital stay once WBC improves. LHC for pre-op eval revealed moderate 2 vessel disease, no intervention warranted. Intermediate risk for surgery from cardiac standpoint given his CHF/CMP. (7) CAD (coronary artery disease) Current Visit: Yes Status: Acute LHC revealed moderate 2 vessel CAD, nonobstructive and no intervention warranted. Pt with anemia, currently on Plavix for vascular disease, no ASA. Continue Plavix, Statin, BB. Qualifiers: Coronary Disease-Associated Artery/Lesion type: [place] artery [place] vs. transplanted heart: [place] heart Associated angina: without angina Qualified Code(s): I25.10 - Atherosclerotic heart disease of [place] coronary artery without angina pectoris Discussion w patient/family: The assessment and plan as outlined above was discussed with the patient and/or family members who expressed understanding and agreement. All questions were answered. Thank you for involving us in the care of your patient. Please call with any questions. I will discuss all the above with Dr. Mancini and make changes as necessary. Subjective Principal diagnosis: Decreased EF Interval history: S/P LHC yesterday showed moderate 2 vessel CAD, no intervention warranted. Pt reports breathing is same as yesterday, still has dyspnea. He denies chest pain. I/O yesterday -1910mL. BMP not yet resulted for today. Objective Vital Signs, Last 4 Hours Temp Pulse Resp BP Pulse Ox 07/24/17 08:23 91 16 95 07/24/17 07:08 98.2 F 88 22 155/84 93 Vital Signs Temp Pulse Resp BP Pulse Ox 07/24/17 08:23 91 16 95 07/24/17 07:08 98.2 F 88 22 155/84 93 07/24/17 04:05 97.3 F L 99 19 160/93 91 07/23/17 23:09 97.6 F 83 19 131/73 96 07/23/17 18:31 97.8 F 68 18 115/70 95 07/23/17 18:00 97.8 F 85 16 130/67 96 07/23/17 17:30 97.6 F 98 18 155/85 96 07/23/17 17:00 97.8 F 91 18 155/79 97 07/23/17 16:45 97.6 F 99 20 154/77 96 07/23/17 16:30 97.8 F 95 18 142/75 96 07/23/17 16:15 97.6 F 88 18 149/125 98 07/23/17 16:10 97.6 F 99 18 151/81 94 07/23/17 11:49 98.3 F 101 24 170/82 95 Intake and Output 07/23/17 07/24/17 07/24/17 23:59 07:59 15:59 Intake Total 100 / 100 220 / 220 200 / 200 Output Total 1800 / 1800 800 / 800 Balance -1700 / -1700 -580 / -580 200 / 200 Intake: IV Fluids 100 / 100 100 / 100 Zosyn 3.375 GM In Dextrose 5% ( 100 / 100 100 / 100 Minibag+) 100 ML 100 ML @ 25 mls/hr IVPB Q8H [facility] Rx#: [id number] Oral 120 / 120 200 / 200 Output: Catheter 1800 / 1800 800 / 800 Other: Meal Breakfast Percent of Meal Consumed 60% Stool Size Small Stool Consistency formed Stool Color Brown Weight 83.5 kg Blood Glucose* 214 252 Patient Weight 07/24/17 23:59 Weight 83.5 kg General: Conversant, No Apparent Distress HEENT: Atraumatic, Normocephaly, Mucus Membranes Moist Neck: Normal carotid pulses Cardiac: Reg Rate and Rhythm, Normal S1 and S2, No Murmur Lungs: Normal Breath Sounds Neuro: Alert and responsive, No focal deficits noted Abdomen: Soft, Non-Tender Skin: Other (LE ulcers. Left femoral access site healing well. No bleeding, hematoma or ecchymosis noted.) Musculoskeletal: No Chest Wall Tenderness Extremities: Other (LE edema noted) Results 07/23/17 04:36 07/23/17 04:36 Lab Results 07/23/17 13:01 Magnesium 1.5 L Active Medications Acetaminophen (Tylenol) 650 mg PO Q6HR PRN PRN Reason: Mild Pain (1-3) Stop: 01/14/18 19:38 Ascorbic Acid (Vitamin C) 500 mg PO BID [facility] Stop: 01/15/18 21:01 Last Admin: 07/24/17 08:37 Dose: 500 mg Carvedilol (Coreg) 12.5 mg PO BIDWM DAV PRN Reason: Protocol Stop: 01/22/18 11:11 Last Admin: 07/24/17 08:38 Dose: 12.5 mg Clopidogrel Bisulfate (Plavix) 75 mg PO DAILY [facility] Stop: 01/17/18 09:01 Last Admin: 07/24/17 08:38 Dose: 75 mg Collagenase (Santyl) 1 appl TP BID DAV PRN Reason: Protocol Stop: 01/16/18 21:01 Last Admin: 07/23/17 22:38 Dose: 1 appl Dextrose/Water (Dextrose 50% (Syg)) 25 ml IVP AD PRN PRN Reason: Hypoglycemia Stop: 01/14/18 17:08 Furosemide (Lasix) 40 mg IVP BIDDIURETIC [facility] Stop: 01/22/18 17:01 Last Admin: 07/24/17 08:55 Dose: 40 mg Glucagon (Glucagen) 1 mg IM ONCE PRN PRN Reason: Hypoglycemia Stop: 01/14/18 17:08 Glucose (Gluctose) 15 gm PO ONCE PRN PRN Reason: Hypoglycemia Stop: 01/14/18 17:08 Glucose (Gluctose) 30 gm PO ONCE PRN PRN Reason: Hypoglycemia Stop: 01/14/18 17:08 Heparin Sodium (Porcine) (Heparin) 5,000 unit SQ Q8HCO [facility] Stop: 01/14/18 22:01 Last Admin: 07/24/17 06:26 Dose: 5,000 unit Hydralazine HCl (Hydralazine) 10 mg IVP Q6HR PRN PRN Reason: SBP>160 Stop: 01/19/18 08:28 Last Admin: 07/23/17 12:03 Dose: 10 mg Dextrose (Dextrose 5%) 1,000 mls @ 100 mls/hr IVC .Q10H PRN PRN Reason: HYPOGLYCEMIA Stop: 01/14/18 17:08 Piperacillin Sod/Tazobactam (Sod 3.375 gm/ Dextrose) 100 mls @ 25 mls/hr IVPB Q8H [facility] Stop: 01/15/18 00:01 Last Admin: 07/24/17 06:25 Dose: 25 mls/hr Insulin Detemir (Levemir) 15 unit SQ HS [facility] Stop: 01/21/18 21:01 Last Admin: 07/23/17 21:00 Dose: Not Given Insulin Human Lispro (Humalog) 4 units 0.05 units/kg (4 units) SQ TIDWM [facility] Stop: 01/21/18 12:01 Last Admin: 07/24/17 08:38 Dose: 4 units Insulin Human Lispro (Humalog) 0 units SQ TIDAC [facility] PRN Reason: Protocol Stop: 01/21/18 11:31 Last Admin: 07/24/17 08:38 Dose: 10 units Insulin Human Lispro (Humalog) 0 units SQ HS [facility] PRN Reason: Protocol Stop: 01/21/18 21:01 Last Admin: 07/23/17 21:00 Dose: Not Given Isosorbide Mononitrate (Imdur) 30 mg PO DAILY [facility] Stop: 01/21/18 09:01 Last Admin: 07/24/17 08:38 Dose: 30 mg Morphine Sulfate (Morphine Sulfate) 4 mg IVP Q4HR PRN PRN Reason: Severe Pain (7-10) Stop: 01/14/18 19:38 Last Admin: 07/24/17 08:38 Dose: 4 mg Multivitamins/Calcium (Thera M Plus) 1 tab PO DAILY [facility] PRN Reason: Protocol Stop: 01/16/18 09:01 Last Admin: 07/24/17 08:37 Dose: 1 tab Naloxone HCl (Narcan) 0.4 mg IVP Q2MIN PRN PRN Reason: Opioid Reversal Stop: 01/14/18 19:38 Nystatin (Mycostatin Cream) 1 appl TP BID [facility] Stop: 01/16/18 21:01 Last Admin: 07/24/17 10:31 Dose: 1 appl Omeprazole (Prilosec) 20 mg PO DAILY@0630 [facility] PRN Reason: Protocol Stop: 01/18/18 06:31 Last Admin: 07/24/17 06:26 Dose: 20 mg Ondansetron HCl (Zofran) 4 mg IVP Q8HR PRN PRN Reason: Nausea And Vomiting Stop: 01/14/18 19:38 Last Admin: 07/18/17 23:43 Dose: 4 mg Oxycodone HCl (Roxicodone) 5 mg PO Q6HR PRN PRN Reason: Moderate Pain Stop: 01/14/18 17:08 Last Admin: 07/24/17 06:24 Dose: 5 mg Senna/Docusate Sodium (Senna Plus) 1 each PO BID DAV PRN Reason: Protocol Stop: 01/21/18 11:31 Last Admin: 07/24/17 08:38 Dose: 1 each Zinc Sulfate (Zinc Sulfate) 220 mg PO DAILY [facility] Stop: 01/16/18 09:01 Last Admin: 07/24/17 08:38 Dose: 220 mg - Imaging and Cardiology Echo: report reviewed Cardiac cath: report reviewed - EKG Interpretation EKG results cardiology: other (12 hr tele AVG HR 84, SR with PACs) Consult Discharge Plan - Plan Additional Instructions: RISK FACTORS: STOP SMOKING: If you smoke, STOP. Smoking or tobacco use significantly increases your risk of heart disease because nicotine causes the arteries to narrow or constrict. It also causes fats to stick to the artery. Your chances of having a heart attack are greatly increased if you continue to smoke. For more information, call the education line for smoking cessation 1-357-MUZDJPZ EAT A LOW FAT/CHOLESTEROL/SODIUM DIET: This diet may help reduce your chances of having a heart attack. LIFTING: Avoid lifting anything more than 10 pounds for 5-7 days Prior to straining, laughing, sneezing and/or coughing, apply manual pressure directly over insertion site. ACTIVITY: You may walk or climb stairs as tolerated You can resume sexual activity as tolerated In general, you are encouraged to engage in a minimum of 30 minutes or more of moderate intensity physical activity, such as brisk walking, daily or at least 3 -4 times weekly BATHING Do not submerge the site into water (bath tub, hot tub, swimming pool) for 1 week. This can be a source for infection into the blood stream. You may shower after 24 hours SITE CARE: After 24 hours, you may remove the dressing and leave the site open to air. Keep the site clean and dry. Clean gently and pat dry. You can expect bruising and tenderness that gradually resolve within a week or two. Return to work as instructed per your physician Resume driving as instructed per physician Keep all scheduled follow up appointments Resume medications as instructed IMPORTANT: If prescribed a Platelet Aggregation Inhibitor such as, Plavix, Brilinta or Effient: Duration of therapy is minimum one year These medications are often used in combination with Aspirin in prevention of future heart attacks Never discontinue unless consult with your Weather Reporter STROKE (CVA) Risk factors for a stroke are: Age, cigarette smoking, diabetes, excessive alcohol consumption, family history, high blood pressure, overweight, physical inactivity, prior stroke, heart attack, diagnosis of carotid artery stenosis or other artery disease. Warning signs: Sudden numbness or weakness of the face, arm or leg; especially on one side of the body, sudden confusion, trouble speaking or understanding, sudden trouble seeing in one or both eyes, sudden trouble walking, dizziness, loss of balance or coordination, sudden severe headache with no cause. Call 911 or go to the Emergency Room. CONGESTIVE HEART FAILURE: If you have been diagnosed with Congestive Heart Failure (CHF) and your symptoms return, make an appointment with your physician Weigh yourself daily. Notify your physician if you have a weight gain of two or more pounds in one day or five or more pounds in one week. If you experience any difficulty breathing, please call 911 BLEEDING: Although the risk of bleeding is minimal, it can happen. If you have any bleeding from the site, apply firm pressure above the puncture site for 10-15 minutes. If the bleeding does not stop, continue manual pressure and call 911 Contact your physician if: You develop a fever greater than 101 degrees Fahrenheit Your site becomes reddened or has any drainage You have an increase in pain or burning at the site or if a large knot forms at the site. If you experience chest pain, shortness of breath, dizziness, or extreme tiredness, stop the activity and rest. Please notify your physicians office if you experience any of these symptoms and they are not relieved by rest please call 911! Referrals: Magda Garcia CNP [Partnered Physician] - 07/30/17 10:35 am Jack Bernard MD [Partnered Physician] - 08/07/17 1:00 pm (1 WEEK AFTER DISCHARGE)
[2017-07-24 11:04] LABS: Basophils # 0.1 K/mcL (0.0-0.2); Basophils % 0.3 %; Eosinophils % 0.2 %; Hematocrit 27.3 % (37.5-50.1); Hemoglobin 8.5 g/dL (12.9-16.9); Immature Granulocytes % 0.6 % (0-4); Lymphocytes # 0.7 K/mcL (0.6-4.6); Lymphocytes % 3.7 %; Mean Corpuscular HGB Conc 31.1 g/dL (31.6-35.5); Mean Corpuscular Hemoglobin 28.4 pg (28.0-33.3); Mean Corpuscular Volume 91.3 fL (83.0-100.0); Mean Platelet Volume 10.7 fL (9.4-12.4); Monocytes # 1.3 K/mcL (0.0-1.3); Monocytes % 6.8 %; Neutrophils # 17.2 K/mcL (1.6-8.9); Platelet Count 363 K/mcL (140-400); Red Blood Count 2.99 M/mcL (4.19-5.50); Red Cell Distribution Width 17.2 % (11.5-14.5); Segmented Neutrophils % 88.4 %
[2017-07-24 11:20] LABS: Blood Urea Nitrogen 35 mg/dL (8-26); Carbon Dioxide 25 mEq/L (19-29); Chloride 110 mEq/L (98-109); Potassium 4.1 mEq/L (3.5-4.5); Sodium 144 mEq/L (136-145)
[2017-07-24 11:21] LABS: BUN/Creatinine Ratio 27 (6-26); Calcium 8.7 mg/dL (8.6-10.8); Glucose 171 mg/dL (70-99); Osmolality,Calculated 310 (280-300); eGFR For African Americans > 60 (> 60); eGFR For Non-African Americans 53 (> 60)
--- NOTE | 2017-07-24 11:47 | Podiatry Progress Note ---
Date of Encounter: 07/24/17 Time of Encounter: 12:00 - Assessment and Plan (1) Cellulitis Current Visit: Yes Status: Resolved Assessment: Cellulitis of BLE BLE ulcerations: vascular ulcerations of BLE and full thickness ulcer of left heel Improvement of cellulitis is noted. Wound of left heel is improved in appearance from initial assessment however will eventually require formal debridement. Wound culture polymicrobial - P. mirabilis, K. oxytoca, and E. faecalis.. Infectious disease following for antibiotic recommendations - current recommendation is to Continue Zosyn 3.375 grams IV Q8H. 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 Right popliteal artery angioplasty with 4 x 150mm balloon was documented per op note however patient needs intervention to LLE pending cardiac clearance Patient underwent cardiac cath without intervention on 07/23 Pulses are to signal only current wound therapy is santyl to LLE wound and prevalon boots for protection of heels Patient will need I&D of ulceration, will plan for formal I&D tomorrow of ulceration of left heel wound. (3) Diabetes Current Visit: Yes Status: Chronic Patients glucose readings continue to be in mid 200 range- strict glucose control to promote healing and prevent further complication Consult diabetic education 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 mellitus penitentiary insulin use: without long term care administrator use Qualified Code( s): E11.621 - Type 2 diabetes mellitus with foot ulcer; L97.509 - Non-pressure chronic ulcer of other part of unspecified foot with unspecified severity; L97.509 - Non-pressure chronic ulcer of other part of unspecified foot with unspecified severity; L97.509 - Non-pressure chronic ulcer of other part of unspecified foot with unspecified severity; L97.509 - Non-pressure chronic ulcer of other part of unspecified foot with unspecified severity (4) Pressure ulcer of left heel, unstageable Current Visit: Yes Status: Acute Assessment: pressure ulceration of lateral/left heel unstageable related to presence of eschar tissue in wound bed measures [id number]. 80% fibrous slough/20% eschar tissue Plan: Cleanse with soap and water, 25% dakins solution dressing to wounds Continue to elevate and protect heel with styles boot Awaiting wound culture results- continue antibiotic therapy Will order styles boot to RLE in addition to LLE. Right heel is boggy and slow to joey. Head CT 07/15/17 13:15 IMPRESSION: No acute intracranial abnormality. Diffuse atrophic changes with findings suggesting chronic microvascular ischemia an old right occipital lobe infarct D/ / Jayson Jimenez MD / Jayson Jimenez MD Interpreting Provider: Jayson Jimenez MD Ankle X-Ray 07/15/17 13:52 IMPRESSION: Soft tissue ulcer in the left heel with diffuse soft tissue swelling consistent with cellulitis. Extensive vascular calcifications suggest diabetes. No definite evidence of osteomyelitis. D/ / Jack Melendez MD / Jack Melendez MD Interpreting Provider: Jack Melendez MD Foot X-Ray 07/15/17 13:52 IMPRESSION: No acute bone or joint abnormality. D/ / Klever Diez MD / Klever Diez MD Interpreting Provider: Klever Diez MD Lower Extremity CT 07/16/17 17:09 IMPRESSION: Extensive soft tissue edema without radiographic evidence for osteomyelitis. D/ / Marino Lei MD / Marino Lei MD Interpreting Provider: Mairno Lei MD Subjective Principal diagnosis: Decreased EF Interval history: Continuing to follow patient for diabetic wounds to BLE. Patient has multiple wounds to BLE and between toes related to poorly controlled diabetes, atherosclerosis and poor self care. Patient has a pressure ulcer to left heel. Patient underwent an angio with zaida on 07/17 to left common femoral artery. Right popliteal artery atherectomy with 7 brit[place] islander pantheris catheter. Right popliteal artery angioplasty with 4 x 150mm balloon was documented per op note. Patient resting comfortably on arrival to room. Up to bedside and refusing assessment at this time. Assessments provided by nursing staff. Dressings intact. Applying santyl to wounds. Patient states they were changed this morning. Patient has a prevalon boot to BLE. Patient wbc remains elevated. VS are stable. No tachycardia, no hypotension. Afebrile >24 hours. Objective - Vital Signs Vital Signs: Vital Signs Temp Pulse Resp BP Pulse Ox 07/24/17 08:23 91 16 95 07/24/17 07:08 98.2 F 88 22 155/84 93 07/24/17 04:05 97.3 F L 99 19 160/93 91 07/23/17 23:09 97.6 F 83 19 131/73 96 07/23/17 18:31 97.8 F 68 18 115/70 95 07/23/17 18:00 97.8 F 85 16 130/67 96 07/23/17 17:30 97.6 F 98 18 155/85 96 07/23/17 17:00 97.8 F 91 18 155/79 97 07/23/17 16:45 97.6 F 99 20 154/77 96 07/23/17 16:30 97.8 F 95 18 142/75 96 07/23/17 16:15 97.6 F 88 18 149/125 98 07/23/17 16:10 97.6 F 99 18 151/81 94 07/23/17 11:49 98.3 F 101 24 170/82 95 Intake and Output 07/23/17 07/24/17 07/24/17 23:59 07:59 15:59 Intake Total 100 / 100 220 / 220 300 / 300 Output Total 1800 / 1800 800 / 800 Balance -1700 / -1700 -580 / -580 300 / 300 Intake: IV Fluids 100 / 100 100 / 100 100 / 100 Zosyn 3.375 GM In Dextrose 5% ( 100 / 100 100 / 100 100 / 100 Minibag+) 100 ML 100 ML @ 25 mls/hr IVPB Q8H [facility] Rx#: [id number] Oral 120 / 120 200 / 200 Output: Catheter 1800 / 1800 800 / 800 Other: Meal Breakfast Percent of Meal Consumed 60% Stool Size Small Moderate Stool Consistency formed soft formed Stool Color Brown Brown # Bowel Movements 1 Weight 83.5 kg Blood Glucose* 214 252 Patient Weight 07/24/17 23:59 Weight 83.5 kg - Exam Exam: General Examination: CONSTITUTIONAL: Alert, oriented, in no acute distress, non-toxic. EXTREMITIES: CFT 3 seconds all toes. Edema +1 and pedal pulses to signal only- warmth noted SKIN: Skin with decreased turgor, decreased subcutaneous tissue, skin thin and shiny with trophic changes associated with comorbidities as described in history.. NEUROLOGIC: intact sensation to moderate touch Pressure ulceration of left heel- [id number] cm, unstageable due to presence of fibrous slough to entire wound bed- there is improvement noted in appearance of wound. No periwound edema, erythema, or warmth. No drainage. No odor Bilateral arterial/diabetic ulcerations- left plantar aspect and lateral aspect of foot and between toes of right foot appear to be slightly improved, superficial, drying- no periwound edema, warmth or erythema - Lab Result Diagrams: 07/30/17 09:39 07/30/17 09:39 Labs: Abnormal lab results WBC 19.5 K/mcL (4.3-11.1) H 07/24/17 10:33 RBC 2.99 M/mcL (4.19-5.50) L 07/24/17 10:33 Hgb 8.5 g/dL (12.9-16.9) L 07/24/17 10:33 Hct 27.3 % (37.5-50.1) L 07/24/17 10:33 MCHC 31.1 g/dL (31.6-35.5) L 07/24/17 10:33 RDW 17.2 % (11.5-14.5) H 07/24/17 10:33 Neutrophils # 17.2 K/mcL (1.6-8.9) H 07/24/17 10:33 ESR >= 130 mm/hr (0-10) H 07/22/17 03:46 PT 12.5 Seconds (9.4-12.1) H 07/16/17 01:45 Chloride 110 mEq/L (98-109) H 07/24/17 10:33 BUN 35 mg/dL (8-26) H 07/24/17 10:33 Creatinine 1.32 mg/dL (0.72-1.25) H 07/24/17 10:33 Est GFR (Non-Af Amer) 53 (> 60) L 07/24/17 10:33 BUN/Creatinine Ratio 27 (6-26) H 07/24/17 10:33 Glucose 171 mg/dL (70-99) H 07/24/17 10:33 POC Glucose 214 (58-89) H 07/23/17 20:58 Hemoglobin A1c 9.3 % (-5.6) H 07/15/17 13:30 Calculated Osmolality 310 (280-300) H 07/24/17 10:33 Ionized Calcium 1.14 mmol/L (1.15-1.35) L 07/23/17 13:01 Magnesium 1.5 mg/dL (1.6-2.6) L 07/23/17 13:01 Iron 21 mcg/dL (65-175) L 07/17/17 03:40 % Saturation 10 % (20-55) L 07/17/17 03:40 Transferrin 143 mg/dL (174-364) L 07/17/17 03:40 Ferritin 331 ng/ml (22-275) H 07/17/17 03:40 Alkaline Phosphatase 158 Units/L (38-126) H 07/19/17 03:07 Troponin I 0.04 ng/mL (0-0.03) H* 07/16/17 01:45 C-Reactive Protein 78 mg/L (Less than 5) H 07/22/17 00:35 Albumin 2.2 g/dL (3.5-5.0) L 07/19/17 03:07 Globulin 4.3 g/dL (2.4-3.5) H 07/19/17 03:07 Albumin/Globulin Ratio 0.5 (1.1-2.2) L 07/19/17 03:07 HDL Cholesterol 33 mg/dL (40-59) L 07/16/17 01:45 Urine Clarity Cloudy (Clear) A 07/16/17 12:45 Ur Specific [place] 1.030 (1.010-1.025) H 07/16/17 12:45 Urine Protein >=300 mg/dL (Neg-Trace) H 07/16/17 12:45 Urine Glucose (UA) 250 mg/dL (Normal) H 07/16/17 12:45 Urine Bilirubin Small (Negative) H 07/16/17 12:45 Urine Microscopic RBC 5-15 per hpf (0-3) H 07/16/17 12:45 Urine Microscopic WBC 5-15 per hpf (0-3) H 07/16/17 12:45 Ur Squamous Epith Cells Many per lpf (None-Few) H 07/16/17 12:45 Microbiology, Last 48 Hours 07/18/17 16:31 Blood Culture - Final Peripheral Venipuncture No growth. 07/18/17 16:31 Blood Culture - Final Peripheral Venipuncture No growth. Consult Discharge Plan - Plan Additional Instructions: RISK FACTORS: STOP SMOKING: If you smoke, STOP. Smoking or tobacco use significantly increases your risk of heart disease because nicotine causes the arteries to narrow or constrict. It also causes fats to stick to the artery. Your chances of having a heart attack are greatly increased if you continue to smoke. For more information, call the education line for smoking cessation 1-163-LUODADY EAT A LOW FAT/CHOLESTEROL/SODIUM DIET: This diet may help reduce your chances of having a heart attack. LIFTING: Avoid lifting anything more than 10 pounds for 5-7 days Prior to straining, laughing, sneezing and/or coughing, apply manual pressure directly over insertion site. ACTIVITY: You may walk or climb stairs as tolerated You can resume sexual activity as tolerated In general, you are encouraged to engage in a minimum of 30 minutes or more of moderate intensity physical activity, such as brisk walking, daily or at least 3 -4 times weekly BATHING Do not submerge the site into water (bath tub, hot tub, swimming pool) for 1 week. This can be a source for infection into the blood stream. You may shower after 24 hours SITE CARE: After 24 hours, you may remove the dressing and leave the site open to air. Keep the site clean and dry. Clean gently and pat dry. You can expect bruising and tenderness that gradually resolve within a week or two. Return to work as instructed per your physician Resume driving as instructed per physician Keep all scheduled follow up appointments Resume medications as instructed IMPORTANT: If prescribed a Platelet Aggregation Inhibitor such as, Plavix, Brilinta or Effient: Duration of therapy is minimum one year These medications are often used in combination with Aspirin in prevention of future heart attacks Never discontinue unless consult with your Section [employer] Worker STROKE (CVA) Risk factors for a stroke are: Age, cigarette smoking, diabetes, excessive alcohol consumption, family history, high blood pressure, overweight, physical inactivity, prior stroke, heart attack, diagnosis of carotid artery stenosis or other artery disease. Warning signs: Sudden numbness or weakness of the face, arm or leg; especially on one side of the body, sudden confusion, trouble speaking or understanding, sudden trouble seeing in one or both eyes, sudden trouble walking, dizziness, loss of balance or coordination, sudden severe headache with no cause. Call 911 or go to the Emergency Room. CONGESTIVE HEART FAILURE: If you have been diagnosed with Congestive Heart Failure (CHF) and your symptoms return, make an appointment with your physician Weigh yourself daily. Notify your physician if you have a weight gain of two or more pounds in one day or five or more pounds in one week. If you experience any difficulty breathing, please call 911 BLEEDING: Although the risk of bleeding is minimal, it can happen. If you have any bleeding from the site, apply firm pressure above the puncture site for 10-15 minutes. If the bleeding does not stop, continue manual pressure and call 911 Contact your physician if: You develop a fever greater than 101 degrees Fahrenheit Your site becomes reddened or has any drainage You have an increase in pain or burning at the site or if a large knot forms at the site. If you experience chest pain, shortness of breath, dizziness, or extreme tiredness, stop the activity and rest. Please notify your physicians office if you experience any of these symptoms and they are not relieved by rest please call 911! Referrals: Magda Garcia CNP [Partnered Physician] - 07/30/17 10:35 am Jack Bernard MD [Partnered Physician] - 08/07/17 1:00 pm (1 WEEK AFTER DISCHARGE)
[2017-07-24] MEDS ORDERED: Magnesium Oxide 400 MG TABLET PO SCH (12:15)
--- NOTE | 2017-07-24 14:15 | Infectious Disease Progress No ---
Date of Encounter: 07/24/17 Time of Encounter: 14:13 - Assessment and Plan (1) Sepsis Current Visit: Yes Status: Resolved The patient had two SIRS criteria on admission. Likely secondary to infected arterial ulcers/cellulitis and possible OM of the left foot. Improved. Tachycardia has resolved. WBC continues to improve. Blood cultures drawn 07/15/17 are positive 1/2 sets for anaerobic GNR. Repeat blood cultures drawn 07/18/17 are negative x 2 sets. Qualifiers: Sepsis type: sepsis due to unspecified organism Qualified Code(s): A41.9 - Sepsis, unspecified organism (2) Bacteremia Current Visit: Yes Status: Resolved Causative organism unclear. Blood cultures drawn 07/15/17 are positive 1/2 sets for anaerobic GNR. Most likely a contaminant given that only 1/2 sets is positive. Repeat blood cultures drawn 07/18/17 are negative x 2 sets. (3) Cellulitis Current Visit: Yes Status: Resolved Location: BLE per the medical record. Appears improved as there are no signs of cellulitis at this time. Causative organism unclear, but likely polymicrobial. Likely secondary to infected arterial ulcers. Wound culture grew P. mirabilis, K. oxytoca, and E. faecalis. CT of the BLE negative for OM or abscess, but the patient's WBC continues to be elevated. Podiatry consulted and following. Continue wound care per their recommendations. ESR >130. CRP 78. MRI of the left foot shows findings consistent with early osteomyelitis vs. reactive osteitis. Given the markedly elevated inflammatory markers, concern for early osteomyelitis. Discussed with Podiatry team who plans on taking the patient to the OR tomorrow for debridement of the left heel. Continue Zosyn 3.375 grams IV Q8H. Duration of treatment depends on the clinical picture. Monitor renal function and dose-adjust antibiotics. Qualifiers: Site of cellulitis: extremity Site of cellulitis of extremity: lower extremity Laterality: unspecified laterality Qualified Code(s): L03.119 - Cellulitis of unspecified part of limb (4) Acute kidney injury Current Visit: Yes Status: Acute Likely LUCY. Stable. Continue to trend. Dose-adjust antibiotics. Avoid nephrotoxins as able. (5) Arterial leg ulcer Current Visit: Yes Status: Acute Location: Bilateral feet and right lower leg. ABIs completed 07/16/17 showed moderate disease in the RLE and severe disease in the LLE. Vascular surgery consulted. Status post angiogram with right popliteal arthrectomy with angioplasty 07/17/[address] Bernard. The patient will likely require surgical intervention on the LLE at a later date. Continue wound care per podiatry's recommendations. (6) Weakness generalized Current Visit: Yes Status: Acute (7) Elevated troponin Current Visit: Yes Status: Acute Likely secondary to demand ischemia. Status post [facility] 07/23/17 - no intervention, medical management only. Management per the primary team. (8) Atherosclerosis of [place] arteries of right leg with ulceration of other part of foot Current Visit: Yes Status: Chronic CLIFF showed moderate disease. Vascular surgery consulted and following. Status post RLE popliteal arthrectomy with balloon angioplasty 07/17/[address] Bernard. (9) Atherosclerosis of [place] arteries of left leg with ulceration of other part of foot Current Visit: Yes Status: Chronic CLIFF showed severe LLE disease. Vascular surgery consulted and following. Per Vascular, will likely require further LLE intervention/surgery at a later date. (10) Pressure ulcer of left heel, unstageable Current Visit: Yes Status: Acute Likely multifactorial: pressure ulcer + arterial insufficiency. Patient refuses exam. Podiatry consulted and following. CT scan/XR negative for OM. ESR and CRP markedly elevated. MRI shows possible early OM vs. reactive osteitis. Continue wound care per podiatry. Continue antibiotics as above. Per podiatry, debridement scheduled for tomorrow. (11) Anemia Current Visit: Yes Status: Acute Etiology unclear. No acute bleeding noted on exam. Further workup and management per the primary team. Qualifiers: Anemia type: unspecified type Qualified Code(s): D64.9 - Anemia, unspecified (12) Diabetes Current Visit: Yes Status: Chronic Patient reports he has not been taking his diabetic medications for two years. HgbA1C 9%. Recommend aggressive glucose monitoring and control to promote wound healing and prevent re-infection. 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 No acute events noted overnight. Patient states he feels poorly today and states he has 5/10 pain "all over." Denies fevers, chills , or rigors. Denies chest pain, but does report some mild shortness of breath and a non-productive cough. Denies nausea, vomiting, or abdominal pain. Reports two loose stools this morning. Status post [facility] yesterday, no intervention. Infect Dis PN-Objective Data - Labs CBC & Chem 7: 07/26/17 09:42 07/26/17 09:42 Labs: Laboratory Results - last 24 hr 07/23/17 07/23/17 07/24/17 16:13 20:58 10:33 WBC 19.5 H RBC 2.99 L Hgb 8.5 L Hct 27.3 L MCV 91.3 MCH 28.4 MCHC 31.1 L RDW 17.2 H Plt Count 363 MPV 10.7 Immature Gran % 0.6 Seg Neutrophils % 88.4 Lymphocytes % 3.7 Monocytes % 6.8 Eosinophils % 0.2 Basophils % 0.3 Neutrophils # 17.2 H Lymphocytes # 0.7 Monocytes # 1.3 Eosinophils # 0.0 Basophils # 0.1 Sodium Potassium Chloride Carbon Dioxide BUN Creatinine Est GFR ( Amer) Est GFR (Non-Af Amer) BUN/Creatinine Ratio Glucose POC Glucose 219 H 214 H Calculated Osmolality Calcium 07/24/17 10:33 WBC RBC Hgb Hct MCV MCH MCHC RDW Plt Count MPV Immature Gran % Seg Neutrophils % Lymphocytes % Monocytes % Eosinophils % Basophils % Neutrophils # Lymphocytes # Monocytes # Eosinophils # Basophils # Sodium 144 Potassium 4.1 Chloride 110 H Carbon Dioxide 25 BUN 35 H Creatinine 1.32 H Est GFR ( Amer) > 60 Est GFR (Non-Af Amer) 53 L BUN/Creatinine Ratio 27 H Glucose 171 H POC Glucose Calculated Osmolality 310 H Calcium 8.7 Cultures: Cultures 07/18/17 16:31 Blood Culture - Final Peripheral Venipuncture No growth. 07/18/17 16:31 Blood Culture - Final Peripheral Venipuncture No growth. 07/16/17 16:55 Wound Culture - Final Left Foot Proteus mirabilis Klebsiella oxytoca Enterococcus faecalis Serology 07/16/17 Range/Units 12:45 Urine Color Yellow (Yellow) Urine Clarity Cloudy A (Clear) Urine pH 5.5 (5.0-8.0) pH Units Ur Specific [place]ter 1.030 H (1.010-1.025) Urine Protein >=300 H (Neg-Trace) mg/dL Urine Glucose (UA) 250 H (Normal) mg/dL Urine Ketones Negative (Negative) mg/dL Urine Blood Negative (Negative) Urine Nitrite Negative (Negative) Urine Bilirubin Small H (Negative) Urine Urobilinogen Normal (Normal) mg/dL Ur Leukocyte Esterase Negative (Negative) Urine Microscopic RBC 5-15 H (0-3) per hpf Urine Microscopic WBC 5-15 H (0-3) per hpf Ur Squamous Epith Cells Many H (None-Few) per lpf Urine Bacteria None Seen (None-Few) per hpf Hyaline Casts None Seen (None-Few) per lpf Ur Culture Indicated? NO (NO) Exam - Constitutional Vitals: Temp Pulse Resp BP Pulse Ox 97.6 F 80 20 170/88 93 07/24/17 12:21 07/24/17 12:24 07/24/17 12:24 07/24/17 12:21 07/24/17 12:24 General appearance: average body habitus, cooperative, no acute distress - Head Head exam: Present: atraumatic, normal inspection, normocephalic - Eye Eye exam: Present: EOMI, normal appearance, PERRL Pupils: Present: normal accommodation - ENT ENT exam: Present: mucous membranes moist - Neck Neck exam: Present: normal inspection - Respiratory Respiratory exam: Present: CTAB. Absent: rales, respiratory distress, rhonchi, wheezes - Cardiovascular Cardiovascular exam: Present: RRR, +S1, +S2 - GI/Abdominal GI/Abdominal exam: Present: normal bowel sounds, soft. Absent: distended, tenderness Additional comments: Hernandez catheter noted to be draining clear yellow urine. - Extremities Exam Extremities exam: Present: pedal edema (1+ BLE), tenderness (bilateral feet) Additional comments: Left foot dressing C/D/I. Right foot lesions noted to the dorsal aspect of the foot, dry without erythema or drainage. - Neurological Exam Neurological exam: Present: alert, oriented X3, no focal deficits - Psychiatric Psychiatric exam: Present: normal affect, normal mood - Skin Skin exam: Present: dry, intact, normal color, warm Consult Discharge Plan - Plan Additional Instructions: RISK FACTORS: STOP SMOKING: If you smoke, STOP. Smoking or tobacco use significantly increases your risk of heart disease because nicotine causes the arteries to narrow or constrict. It also causes fats to stick to the artery. Your chances of having a heart attack are greatly increased if you continue to smoke. For more information, call the education line for smoking cessation 8-647-QQUCIVX EAT A LOW FAT/CHOLESTEROL/SODIUM DIET: This diet may help reduce your chances of having a heart attack. LIFTING: Avoid lifting anything more than 10 pounds for 5-7 days Prior to straining, laughing, sneezing and/or coughing, apply manual pressure directly over insertion site. ACTIVITY: You may walk or climb stairs as tolerated You can resume sexual activity as tolerated In general, you are encouraged to engage in a minimum of 30 minutes or more of moderate intensity physical activity, such as brisk walking, daily or at least 3 -4 times weekly BATHING Do not submerge the site into water (bath tub, hot tub, swimming pool) for 1 week. This can be a source for infection into the blood stream. You may shower after 24 hours SITE CARE: After 24 hours, you may remove the dressing and leave the site open to air. Keep the site clean and dry. Clean gently and pat dry. You can expect bruising and tenderness that gradually resolve within a week or two. Return to work as instructed per your physician Resume driving as instructed per physician Keep all scheduled follow up appointments Resume medications as instructed IMPORTANT: If prescribed a Platelet Aggregation Inhibitor such as, Plavix, Brilinta or Effient: Duration of therapy is minimum one year These medications are often used in combination with Aspirin in prevention of future heart attacks Never discontinue unless consult with your Search Engine Optimizer STROKE (CVA) Risk factors for a stroke are: Age, cigarette smoking, diabetes, excessive alcohol consumption, family history, high blood pressure, overweight, physical inactivity, prior stroke, heart attack, diagnosis of carotid artery stenosis or other artery disease. Warning signs: Sudden numbness or weakness of the face, arm or leg; especially on one side of the body, sudden confusion, trouble speaking or understanding, sudden trouble seeing in one or both eyes, sudden trouble walking, dizziness, loss of balance or coordination, sudden severe headache with no cause. Call 911 or go to the Emergency Room. CONGESTIVE HEART FAILURE: If you have been diagnosed with Congestive Heart Failure (CHF) and your symptoms return, make an appointment with your physician Weigh yourself daily. Notify your physician if you have a weight gain of two or more pounds in one day or five or more pounds in one week. If you experience any difficulty breathing, please call 911 BLEEDING: Although the risk of bleeding is minimal, it can happen. If you have any bleeding from the site, apply firm pressure above the puncture site for 10-15 minutes. If the bleeding does not stop, continue manual pressure and call 911 Contact your physician if: You develop a fever greater than 101 degrees Fahrenheit Your site becomes reddened or has any drainage You have an increase in pain or burning at the site or if a large knot forms at the site. If you experience chest pain, shortness of breath, dizziness, or extreme tiredness, stop the activity and rest. Please notify your physicians office if you experience any of these symptoms and they are not relieved by rest please call 911! Referrals: Magda Garcia CNP [Partnered Physician] - 07/30/17 10:35 am Jack Bernard MD [Partnered Physician] - 08/07/17 1:00 pm (1 WEEK AFTER DISCHARGE) - Attending Attestation I examined this patient and my medical decision-making was reviewed with the Resident Physician. I agree with the documented findings, disposition and treatment plan as described except to the extent set forth below.
--- NOTE | 2017-07-24 19:10 | Internal Med Progress Note ---
Date of Encounter: 07/24/17 Time of Encounter: 11:00 - Assessment and plan (1) Sepsis Current Visit: Yes Status: Resolved Assessment and plan: Presented with leukocytosis, tachycardia due to B/L ischemic leg ulcers and mild cellulitis. Persistent leukocytosis, but improved cellulitis. Antibiotics as below. Infectious disease is following and appreciate recommendations. Qualifiers: Sepsis type: sepsis due to unspecified organism Qualified Code(s): A41.9 - Sepsis, unspecified organism (2) Bacteremia Current Visit: Yes Status: Acute Assessment and plan: Secondary to infected foot ulcers preliminary blood culture reports anaeorobic gram negative rods pt is on Zosyn worsening of leukocytosis noted continue IV fluids f/u repeat blood culture results ID on board (3) Acute kidney injury Current Visit: Yes Status: Acute Assessment and plan: Nonoliguric. Serum creatinine slightly improved to 1.34. YUMIKO, likely due to use of antibiotics- Vancomycin and Zosyn. Monitor closely. (4) CHF (congestive heart failure) Current Visit: Yes Status: Acute Assessment and plan: Echocardiogram showed following: LVEF 35-40%. Moderate global and segmental left ventricular systolic dysfunction. Moderate pulmonary hypertension. Moderate-severe pulmonic regurgitation. Diastolic dysfunction, NOS -Cardiology following and appreciate recommendations. Qualifiers: Congestive heart failure type: systolic Congestive heart failure chronicity : acute Qualified Code(s): I50.21 - Acute systolic (congestive) heart failure (5) Elevated troponin Current Visit: Yes Status: Acute Assessment and plan: -Likely due to demand ischemia due to underlying sepsis. -Cardiology with recommendation for a cardiac catheter which was done today. (6) Diabetes Current Visit: Yes Status: Chronic Assessment and plan: Blood sugars continue to be elevated intermittently. Will increase basal and SSI , add nutritional insulin. Imperative for tight blood sugar control due to non- healing vascular wounds. Diabetic diet. H/o- medical noncompliance with poor outpatient followup. 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 mellitus roasterman insulin use: without roasterman use Qualified Code( s): E11.621 - Type 2 diabetes mellitus with foot ulcer; L97.509 - Non-pressure chronic ulcer of other part of unspecified foot with unspecified severity; L97.509 - Non-pressure chronic ulcer of other part of unspecified foot with unspecified severity; L97.509 - Non-pressure chronic ulcer of other part of unspecified foot with unspecified severity; L97.509 - Non-pressure chronic ulcer of other part of unspecified foot with unspecified severity (7) HTN (hypertension) Current Visit: Yes Status: Chronic Assessment and plan: BP noted to be somewhat uncontrolled. Continue current management.. Qualifiers: Hypertension type: essential hypertension Qualified Code(s): I10 - Essential (primary) hypertension (8) HLD (hyperlipidemia) Current Visit: Yes Status: Chronic Assessment and plan: Continue Statin. Qualifiers: Hyperlipidemia type: unspecified Qualified Code(s): E78.5 - Hyperlipidemia , unspecified (9) Anemia Current Visit: Yes Status: Acute Assessment and plan: H&H low but acceptable no acute bleeding reported at this time continue to monitor Qualifiers: Anemia type: unspecified type Qualified Code(s): D64.9 - Anemia, unspecified (10) Atherosclerosis of [place] arteries of right leg with ulceration of other part of foot Current Visit: Yes Status: Chronic Assessment and plan: Vascular surgery on board. Patient has significant vascular disease in B/L LE. Underwent right popliteal angioplasty and atherectomy. Plan for left leg revascularization procedure. Echocardiogram shows significant systolic dysfunction with EF 35-40%. Cardiology consulted for clearance and further evaluation, like [facility]. (11) Arterial leg ulcer Current Visit: Yes Status: Acute Assessment and plan: Pt will need vascular surgery once clinically stable (12) DVT prophylaxis Current Visit: Yes Status: Acute Assessment and plan: Heparin SQ - Subjective Interval history: No acute events overnight. - Constitutional Vitals: Temp Pulse Resp BP Pulse Ox 97.6 F 93 20 141/83 95 07/24/17 16:25 07/24/17 18:12 07/24/17 16:25 07/24/17 16:25 07/24/17 18:12 General appearance: Present: cooperative, A&O X 3, answers questions appropriately - Respiratory Respiratory exam: Present: CTAB. Absent: accessory muscle use, rales, rhonchi, wheezes - Cardiovascular Cardiovascular exam: Present: RRR, +S1, +S2. Absent: diastolic murmur, gallop, rubs, systolic murmur Internal Medicine: Result - Labs CBC & Chem 7: 07/24/17 10:33 07/24/17 10:33 Labs: Short CBC 07/24/17 Range/Units 10:33 WBC 19.5 H (4.3-11.1) K/mcL Hgb 8.5 L (12.9-16.9) g/dL Hct 27.3 L (37.5-50.1) % Plt Count 363 (140-400) K/mcL Neutrophils # 17.2 H (1.6-8.9) K/mcL BMP 07/24/17 10:33 Sodium 144 Potassium 4.1 Chloride 110 H Carbon Dioxide 25 BUN 35 H Creatinine 1.32 H Glucose 171 H Calcium 8.7 - ABG Interpretation ABG results: PT/INR, D-dimer PT 12.5 Seconds (9.4-12.1) H 07/16/17 01:45 Consult Discharge Plan - Plan Additional Instructions: RISK FACTORS: STOP SMOKING: If you smoke, STOP. Smoking or tobacco use significantly increases your risk of heart disease because nicotine causes the arteries to narrow or constrict. It also causes fats to stick to the artery. Your chances of having a heart attack are greatly increased if you continue to smoke. For more information, call the education line for smoking cessation 0-712-MULQSIQ EAT A LOW FAT/CHOLESTEROL/SODIUM DIET: This diet may help reduce your chances of having a heart attack. LIFTING: Avoid lifting anything more than 10 pounds for 5-7 days Prior to straining, laughing, sneezing and/or coughing, apply manual pressure directly over insertion site. ACTIVITY: You may walk or climb stairs as tolerated You can resume sexual activity as tolerated In general, you are encouraged to engage in a minimum of 30 minutes or more of moderate intensity physical activity, such as brisk walking, daily or at least 3 -4 times weekly BATHING Do not submerge the site into water (bath tub, hot tub, swimming pool) for 1 week. This can be a source for infection into the blood stream. You may shower after 24 hours SITE CARE: After 24 hours, you may remove the dressing and leave the site open to air. Keep the site clean and dry. Clean gently and pat dry. You can expect bruising and tenderness that gradually resolve within a week or two. Return to work as instructed per your physician Resume driving as instructed per physician Keep all scheduled follow up appointments Resume medications as instructed IMPORTANT: If prescribed a Platelet Aggregation Inhibitor such as, Plavix, Brilinta or Effient: Duration of therapy is minimum one year These medications are often used in combination with Aspirin in prevention of future heart attacks Never discontinue unless consult with your Hoop Coiler STROKE (CVA) Risk factors for a stroke are: Age, cigarette smoking, diabetes, excessive alcohol consumption, family history, high blood pressure, overweight, physical inactivity, prior stroke, heart attack, diagnosis of carotid artery stenosis or other artery disease. Warning signs: Sudden numbness or weakness of the face, arm or leg; especially on one side of the body, sudden confusion, trouble speaking or understanding, sudden trouble seeing in one or both eyes, sudden trouble walking, dizziness, loss of balance or coordination, sudden severe headache with no cause. Call 911 or go to the Emergency Room. CONGESTIVE HEART FAILURE: If you have been diagnosed with Congestive Heart Failure (CHF) and your symptoms return, make an appointment with your physician Weigh yourself daily. Notify your physician if you have a weight gain of two or more pounds in one day or five or more pounds in one week. If you experience any difficulty breathing, please call 911 BLEEDING: Although the risk of bleeding is minimal, it can happen. If you have any bleeding from the site, apply firm pressure above the puncture site for 10-15 minutes. If the bleeding does not stop, continue manual pressure and call 911 Contact your physician if: You develop a fever greater than 101 degrees Fahrenheit Your site becomes reddened or has any drainage You have an increase in pain or burning at the site or if a large knot forms at the site. If you experience chest pain, shortness of breath, dizziness, or extreme tiredness, stop the activity and rest. Please notify your physicians office if you experience any of these symptoms and they are not relieved by rest please call 911! Referrals: Magda Garcia CNP [Partnered Physician] - 07/30/17 10:35 am Jack Bernard MD [Partnered Physician] - 08/07/17 1:00 pm (1 WEEK AFTER DISCHARGE)
[2017-07-24] MEDS ORDERED: Insulin DETEMIR 100 UNIT/ML X5UNITS SQ SCH (21:00)
[2017-07-25] MEDS: *HR* Morphine 2 MG/ML SYRINGE IVP PRN ×3 (02:30→20:29)
[2017-07-25] MEDS: Nystatin Cream 15 GM TUBE TP SCH ×2 (05:27→20:28)
[2017-07-25] MEDS: Piperacillin/Tazobactam 3.375 GM in D5% in Water (Mini-Bag+) 100 ML IVPB SCH ×2 (05:30→20:29)
[2017-07-25] MEDS: *HR* Heparin 5,000 UNIT/ML VIAL SQ SCH ×2 (05:44→20:30)
[2017-07-25] MEDS: Insulin LISPRO 300 UNITS/3 ML VIAL SQ SCH ×7 (07:29→20:28)
[2017-07-25 08:29] LABS: Eosinophils # 0.2 K/mcL (0.0-0.6); Hematocrit 30.8 % (37.5-50.1); Hemoglobin 9.5 g/dL (12.9-16.9); Mean Corpuscular HGB Conc 30.8 g/dL (31.6-35.5); Mean Corpuscular Hemoglobin 28.5 pg (28.0-33.3); Mean Corpuscular Volume 92.5 fL (83.0-100.0); Mean Platelet Volume 10.7 fL (9.4-12.4); Platelet Count 333 K/mcL (140-400); Red Blood Count 3.33 M/mcL (4.19-5.50); Red Cell Distribution Width 17.2 % (11.5-14.5)
[2017-07-25 08:39] LABS: BUN/Creatinine Ratio 25 (6-26); Blood Urea Nitrogen 31 mg/dL (8-26); Calcium 8.8 mg/dL (8.6-10.8); Carbon Dioxide 27 mEq/L (19-29); Chloride 108 mEq/L (98-109); Glucose 127 mg/dL (70-99); Osmolality,Calculated 310 (280-300); Sodium 146 mEq/L (136-145); eGFR For African Americans > 60 (> 60); eGFR For Non-African Americans 57 (> 60)
[2017-07-25] MEDS ORDERED: Furosemide 40 MG TABLET PO SCH (09:00)
--- NOTE | 2017-07-25 09:10 | Event Note ---
Date of Encounter: 07/25/17 Time of Encounter: 09:09 - Cardiology Event Note Paged for 8 beat run NSVT this AM. Coreg held this AM due to surgery today. Known CMP/CHF, LHC without intervention warranted. Resume Coreg this evening and uptitrate as BP and HR allow. Cardiology signing off. Reconsult PRN.
[2017-07-25] MEDS ORDERED: Dexamethasone 4 MG/ML VIAL ONE (10:52)
[2017-07-25] MEDS ORDERED: Ondansetron 4 MG/2 ML VIAL ONE (10:52)
[2017-07-25] MEDS ORDERED: Lidocaine -MPF 2% 2 ML VIAL ONE ×3 (10:52→14:04)
[2017-07-25] MEDS ORDERED: *HR* Propofol 200 MG/20 ML VIAL IVP ONE ×3 (10:52→14:04)
[2017-07-25 10:55] LABS: Lymphocytes # 1.3 K/mcL (0.6-4.6); Monocytes # 0.6 K/mcL (0.0-1.3); Neutrophils # 13.7 K/mcL (1.6-8.9); Platelet Estimate Normal (Normal)
[2017-07-25] MEDS ORDERED: *HR* Succinylcholine 200 MG/10 ML VIAL IVP ONE (10:55)
[2017-07-25 10:56] LABS: Anisocytosis 1+ (Not Present); Polychromasia 1+ (Not Present)
--- NOTE | 2017-07-25 11:22 | Anesthesia Evaluation PreOp ---
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: Denies Any Significant HX Other Medical History: Renal (acute kidney injury), Diabetes Type II, GERD Anesthesia History: No Prior Anesthetic Complications, Past Anesthesia Alcohol Use: none Drug use: none Medications and Allergies No Known Home Drugs 07/15/17 [History] 3 Allergy/AdvReac Type Severity Reaction Status Date / Time No Known Allergies Allergy Verified 07/03/15 17:42 - Meds/Allergy Pre-op Review Medications Reviewed: Yes Allergies Reviewed: Yes Beta Blockers on Current Med List: Yes If Beta Blockers taken, Date/Time (Last Dose taken): 07/24/2017 at 1814 Anesthesia Results - Labs 07/25/17 08:10 07/25/17 08:10 - Imaging EKG: report reviewed (07/15/2017 SINUS TACHYCARDIA) Additional studies: 07/23/2017 CORONARY ANGIOGRAPHY Indications: Cardiomyopathy Impressions: There is moderate two vessel coronary artery disease. Recommendations: Optimal medical therapy of patient's disease. Aggressive risk factor modification. 07/21/2017 Echo Impressions: LVEF 35-40%. Moderate global and segmental left ventricular systolic dysfunction. Moderate pulmonary hypertension. Moderate-severe pulmonic regurgitation. Diastolic dysfunction, NOS Anesthesia Exam Vital Signs/O2 Sat/Glucose, Most Recent Temp Pulse Resp BP Pulse Ox 97.7 F 88 24 162/80 97 07/25/17 07:30 07/25/17 07:37 07/25/17 07:30 07/25/17 07:30 07/25/17 07:37 Blood Glucose* 138 Height: 5'11''/1.8 m Weight: 193 lbs/87.77 kg NPO (# of Hours): 8 Pain Scale: 5 Pain Scale Used: Numeric (1 - 10) - HEENT Pupil (Motor): EOMI Mallampati: II Teeth: Edentulous Oral Opening: Greater than 3 - ADVERTISING ACCOUNT MANAGER LOC: Oriented ADVERTISING ACCOUNT MANAGER Motor: Normal RUE, Normal LUE, Normal RLE, Normal LLE, Normal Face ADVERTISING ACCOUNT MANAGER Sensory: Normal: RUE, LUE, Face, Deficit: RLE, LLE - Cardiac Rhythm: Regular Murmur: None - Pulmonary Breath Sounds: bilateral Clear Respiratory Effort: Symmetrical Anesthesia Assess/Plan ASA Score: 3 Modified Paul Scale for Level of Consciousness: Cooperative, oriented, and tranquil Anesthetic Plan: MAC Monitoring Plan: Standard Monitors
--- NOTE | 2017-07-25 12:37 | Infectious Disease Progress No ---
Date of Encounter: 07/25/17 Time of Encounter: 12:34 - Assessment and Plan (1) Sepsis Current Visit: Yes Status: Resolved The patient had two SIRS criteria on admission. Likely secondary to infected arterial ulcers/cellulitis and possible OM of the left foot. Improved. Tachycardia has resolved. WBC continues to improve. Blood cultures drawn 07/15/17 are positive 1/2 sets for anaerobic GNR. Repeat blood cultures drawn 07/18/17 are negative x 2 sets. Qualifiers: Sepsis type: sepsis due to unspecified organism Qualified Code(s): A41.9 - Sepsis, unspecified organism (2) Bacteremia Current Visit: Yes Status: Resolved Causative organism anaerobic GNR. Blood cultures drawn 07/15/17 are positive 1/2 sets for anaerobic GNR. Most likely a contaminant given that only 1/2 sets is positive. Repeat blood cultures drawn 07/18/17 are negative x 2 sets. (3) Cellulitis Current Visit: Yes Status: Resolved Location: BLE per the medical record. Appears improved as there are no signs of cellulitis at this time. Causative organism unclear, but likely polymicrobial. Likely secondary to infected arterial ulcers. Wound culture grew P. mirabilis, K. oxytoca, and E. faecalis. CT of the BLE negative for OM or abscess, but the patient's WBC continues to be elevated. Podiatry consulted and following. Continue wound care per their recommendations. ESR >130. CRP 78. MRI of the left foot shows findings consistent with early osteomyelitis vs. reactive osteitis. Given the markedly elevated inflammatory markers, concern for early osteomyelitis. Discussed with Podiatry team who plans on taking the patient to the OR today for debridement of the left heel. Continue Zosyn 3.375 grams IV Q8H. Duration of treatment depends on the clinical picture. Monitor renal function and dose-adjust antibiotics. Qualifiers: Site of cellulitis: extremity Site of cellulitis of extremity: lower extremity Laterality: unspecified laterality Qualified Code(s): L03.119 - Cellulitis of unspecified part of limb (4) Acute kidney injury Current Visit: Yes Status: Acute Likely LUCY. Improved. Continue to trend. Dose-adjust antibiotics. Avoid nephrotoxins as able. (5) Arterial leg ulcer Current Visit: Yes Status: Acute Location: Bilateral feet and right lower leg. ABIs completed 07/16/17 showed moderate disease in the RLE and severe disease in the LLE. Vascular surgery consulted. Status post angiogram with right popliteal arthrectomy with angioplasty 07/17/[address] Bernard. The patient will likely require surgical intervention on the LLE at a later date. Continue wound care per podiatry's recommendations. (6) Weakness generalized Current Visit: Yes Status: Acute (7) Elevated troponin Current Visit: Yes Status: Acute Likely secondary to demand ischemia. Status post [facility] 07/23/17 - no intervention, medical management only. Management per the primary team. 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 Vascular surgery consulted and following. Status post RLE popliteal arthrectomy with balloon angioplasty 07/17/[address] Bernard. (9) Atherosclerosis of ramona arteries of left leg with ulceration of other part of foot Current Visit: Yes Status: Chronic CLIFF showed severe LLE disease. Vascular surgery consulted and following. Per Vascular, will likely require further LLE intervention/surgery at a later date. (10) Pressure ulcer of left heel, unstageable Current Visit: Yes Status: Acute Likely multifactorial: pressure ulcer + arterial insufficiency. Patient refuses exam. Podiatry consulted and following. CT scan/XR negative for OM. ESR and CRP markedly elevated. MRI shows possible early OM vs. reactive osteitis. Continue wound care per podiatry. Continue antibiotics as above. Per podiatry, debridement scheduled for later today. (11) Anemia Current Visit: Yes Status: Acute Etiology unclear. No acute bleeding noted on exam. Further workup and management per the primary team. Qualifiers: Anemia type: unspecified type Qualified Code(s): D64.9 - Anemia, unspecified (12) Diabetes Current Visit: Yes Status: Chronic Patient reports he has not been taking his diabetic medications for two years. HgbA1C 9%. Recommend aggressive glucose monitoring and control to promote wound healing and prevent re-infection. 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 mellitus mcc insulin use: without terminal block assembler use Qualified Code( s): E11.621 - Type 2 diabetes mellitus with foot ulcer; L97.509 - Non-pressure chronic ulcer of other part of unspecified foot with unspecified severity; L97.509 - Non-pressure chronic ulcer of other part of unspecified foot with unspecified severity; L97.509 - Non-pressure chronic ulcer of other part of unspecified foot with unspecified severity; L97.509 - Non-pressure chronic ulcer of other part of unspecified foot with unspecified severity - Subjective Interval history: Patient seen and examined. No acute events noted overnight. Patient states he feels poorly today. He states "I'm in the hospital, how do you think I am? I am sick!" Denies fevers, chills, or rigors. Denies chest pain, but does report some mild shortness of breath and a moist, non-productive cough. Denies nausea, vomiting, or abdominal pain. Denies diarrhea. Scheduled to go to the OR later today. Infect Dis PN-Objective Data - Labs CBC & Chem 7: 07/26/17 09:42 07/26/17 09:42 Labs: Laboratory Results - last 24 hr 07/24/17 07/24/17 07/24/17 07:29 12:25 16:37 WBC RBC Hgb Hct MCV MCH MCHC RDW Plt Count MPV Seg Neutrophils % Lymphocytes % Monocytes % Eosinophils % Neutrophils # Lymphocytes # Monocytes # Eosinophils # Platelet Estimate Polychromasia Anisocytosis Sodium Potassium Chloride Carbon Dioxide BUN Creatinine Est GFR ( Amer) Est GFR (Non-Af Amer) BUN/Creatinine Ratio Glucose POC Glucose 252 H 152 H 70 Calculated Osmolality Calcium 07/25/17 07/25/17 07/25/17 07:41 08:10 08:10 WBC 15.7 H RBC 3.33 L Hgb 9.5 L Hct 30.8 L MCV 92.5 MCH 28.5 MCHC 30.8 L RDW 17.2 H Plt Count 333 MPV 10.7 Seg Neutrophils % 87.0 Lymphocytes % 8.0 Monocytes % 4.0 Eosinophils % 1.0 Neutrophils # 13.7 H Lymphocytes # 1.3 Monocytes # 0.6 Eosinophils # 0.2 Platelet Estimate Normal Polychromasia 1+ A Anisocytosis 1+ A Sodium 146 H Potassium 4.0 Chloride 108 Carbon Dioxide 27 BUN 31 H Creatinine 1.23 Est GFR ( Amer) > 60 Est GFR (Non-Af Amer) 57 L BUN/Creatinine Ratio 25 Glucose 127 H POC Glucose 138 H Calculated Osmolality 310 H Calcium 8.8 Cultures: Cultures 07/18/17 16:31 Blood Culture - Final Peripheral Venipuncture No growth. 07/18/17 16:31 Blood Culture - Final Peripheral Venipuncture No growth. 07/16/17 16:55 Wound Culture - Final Left Foot Proteus mirabilis Klebsiella oxytoca Enterococcus faecalis Serology 07/16/17 Range/Units 12:45 Urine Color Yellow (Yellow) Urine Clarity Cloudy A (Clear) Urine pH 5.5 (5.0-8.0) pH Units Ur Specific [place] 1.030 H (1.010-1.025) Urine Protein >=300 H (Neg-Trace) mg/dL Urine Glucose (UA) 250 H (Normal) mg/dL Urine Ketones Negative (Negative) mg/dL Urine Blood Negative (Negative) Urine Nitrite Negative (Negative) Urine Bilirubin Small H (Negative) Urine Urobilinogen Normal (Normal) mg/dL Ur Leukocyte Esterase Negative (Negative) Urine Microscopic RBC 5-15 H (0-3) per hpf Urine Microscopic WBC 5-15 H (0-3) per hpf Ur Squamous Epith Cells Many H (None-Few) per lpf Urine Bacteria None Seen (None-Few) per hpf Hyaline Casts None Seen (None-Few) per lpf Ur Culture Indicated? NO (NO) Exam - Constitutional Vitals: Temp Pulse Resp BP Pulse Ox 97.7 F 88 24 162/80 97 07/25/17 07:30 07/25/17 07:37 07/25/17 07:30 07/25/17 07:30 07/25/17 07:37 General appearance: average body habitus, cooperative, no acute distress - Head Head exam: Present: atraumatic, normal inspection, normocephalic - Eye Eye exam: Present: EOMI, normal appearance, PERRL Pupils: Present: normal accommodation - ENT ENT exam: Present: mucous membranes moist - Neck Neck exam: Present: normal inspection - Respiratory Respiratory exam: Present: CTAB. Absent: rales, respiratory distress, rhonchi, wheezes - Cardiovascular Cardiovascular exam: Present: RRR, +S1, +S2 - GI/Abdominal GI/Abdominal exam: Present: normal bowel sounds, soft. Absent: distended, tenderness Additional comments: Hernandez catheter noted to be draining clear yellow urine. - Extremities Exam Extremities exam: Present: pedal edema (1+ BLE), tenderness (Right calf) Additional comments: Scabbed lesions noted to the dorsal aspects of the bilateral feet. No drainage or erythema noted. Left foot dressing intact. Patient declines removal of dressing for assessment of the left heel wound. Arterial ulcer noted to the medial aspect of the right lower extremity, scabbed. No drainage. - Neurological Exam Neurological exam: Present: alert, oriented X3, no focal deficits - Psychiatric Psychiatric exam: Present: normal affect, normal mood - Skin Skin exam: Present: dry, intact, normal color, warm Consult Discharge Plan - Plan Additional Instructions: RISK FACTORS: STOP SMOKING: If you smoke, STOP. Smoking or tobacco use significantly increases your risk of heart disease because nicotine causes the arteries to narrow or constrict. It also causes fats to stick to the artery. Your chances of having a heart attack are greatly increased if you continue to smoke. For more information, call the education line for smoking cessation 1-185-ZPLIYGV EAT A LOW FAT/CHOLESTEROL/SODIUM DIET: This diet may help reduce your chances of having a heart attack. LIFTING: Avoid lifting anything more than 10 pounds for 5-7 days Prior to straining, laughing, sneezing and/or coughing, apply manual pressure directly over insertion site. ACTIVITY: You may walk or climb stairs as tolerated You can resume sexual activity as tolerated In general, you are encouraged to engage in a minimum of 30 minutes or more of moderate intensity physical activity, such as brisk walking, daily or at least 3 -4 times weekly BATHING Do not submerge the site into water (bath tub, hot tub, swimming pool) for 1 week. This can be a source for infection into the blood stream. You may shower after 24 hours SITE CARE: After 24 hours, you may remove the dressing and leave the site open to air. Keep the site clean and dry. Clean gently and pat dry. You can expect bruising and tenderness that gradually resolve within a week or two. Return to work as instructed per your physician Resume driving as instructed per physician Keep all scheduled follow up appointments Resume medications as instructed IMPORTANT: If prescribed a Platelet Aggregation Inhibitor such as, Plavix, Brilinta or Effient: Duration of therapy is minimum one year These medications are often used in combination with Aspirin in prevention of future heart attacks Never discontinue unless consult with your Transportation Agent STROKE (CVA) Risk factors for a stroke are: Age, cigarette smoking, diabetes, excessive alcohol consumption, family history, high blood pressure, overweight, physical inactivity, prior stroke, heart attack, diagnosis of carotid artery stenosis or other artery disease. Warning signs: Sudden numbness or weakness of the face, arm or leg; especially on one side of the body, sudden confusion, trouble speaking or understanding, sudden trouble seeing in one or both eyes, sudden trouble walking, dizziness, loss of balance or coordination, sudden severe headache with no cause. Call 911 or go to the Emergency Room. CONGESTIVE HEART FAILURE: If you have been diagnosed with Congestive Heart Failure (CHF) and your symptoms return, make an appointment with your physician Weigh yourself daily. Notify your physician if you have a weight gain of two or more pounds in one day or five or more pounds in one week. If you experience any difficulty breathing, please call 911 BLEEDING: Although the risk of bleeding is minimal, it can happen. If you have any bleeding from the site, apply firm pressure above the puncture site for 10-15 minutes. If the bleeding does not stop, continue manual pressure and call 911 Contact your physician if: You develop a fever greater than 101 degrees Fahrenheit Your site becomes reddened or has any drainage You have an increase in pain or burning at the site or if a large knot forms at the site. If you experience chest pain, shortness of breath, dizziness, or extreme tiredness, stop the activity and rest. Please notify your physicians office if you experience any of these symptoms and they are not relieved by rest please call 911! Referrals: Magda Garcai CNP [Partnered Physician] - 07/30/17 10:35 am Jack Bernard MD [Partnered Physician] - 08/07/17 1:00 pm (1 WEEK AFTER DISCHARGE) - Attending Attestation I examined this patient and my medical decision-making was reviewed with the Resident Physician. I agree with the documented findings, disposition and treatment plan as described except to the extent set forth below.
[2017-07-25] MEDS ORDERED: Bupivacaine/Clonidine Syringe 1 EACH SYRINGE ONE (14:05)
--- NOTE | 2017-07-25 15:17 | Anesthesia Evaluation Post Op ---
Date of Encounter: 07/25/17 Time of Encounter: 15:15 - Vital Signs Vital Signs: 3 Vital Signs Time 1511 BP 151/83 Pulse 83 Resp 16 O2 Sat 97% - Lungs Lungs: Clear Ascult./Percussion - Airway Airway: Non-obstructed - Cardiovascular Regular Rate - Mental Status Mental Status: Alert & Oriented, Answers Appropriately - Pain Pain Scale: 9 (c/o general pain "all over") - Nausea Vomiting Nausea Vomiting: Not Present - Hydration Hydration: NPO, Hernandez catheter - Discharge PostOp Status: Transfer Patient to floor
--- NOTE | 2017-07-25 15:18 | Orthopedic Operative Note ---
Date of procedure: 07/25/17 Pre-op diagnosis: #1 foot ulcer left heel lateral left foot dorsal left foot Post-op diagnosis: same Procedure: 07/25/17 15:13 #1: Incision drainage and debridement multiple areas left foot #2 swab cultures of left heel wound with tissue cultures Implants: None Complications: None Anesthesia: MAC, local Local Anesthetics: 1% Lidocaine HCL SubQ (cc) Surgeon: Wil Roque Estimated blood loss (cc): 5 Tourniquet Time (Minutes): 0 Specimen: Swab cultures and tissue cultures left heel Condition: stable Disposition: floor Procedure in Detail: 07/25/17 15:14 Details in summary of procedure: The patient was brought to the surgical suite. A signed and procedure performed. Patient was then transferred to the surgical table and positioned properly safely securely. The left foot and leg was elevated on a foam block. No tourniquet used. Anesthetic timeout was taken. Left ankle was cleansed with alcohol 3 times. Patient was sedated. Ankle block was carried out without difficulty or complication using 1% plain lidocaine. No epinephrine was used. Profound block achieved. Left foot and prepped and draped in usual sterile manner. Surgical timeout taken. Wounds were measured as follows posterior heel wound measures 2 cm wide by 1.5 cm long by 0.9 cm deep to the deep fascia. The lateral side of the foot measured 17 belongs report 5 cm wide 0.4 cm deep. Dorsal wound of the left foot measures 5.0 cm long 07.0 centimeters wide and 0.2 cm deep. Note that there is undermining of the heel wound at 6 o'clock position per 1.4 cm. Debridement began posterior plantar aspect of left calcaneus repigment scissor was used to debride the wound thoroughly. That juncture and ultrasonics Misonic debrider was used to debride the wound again down to the fascial layer. Bleeding was noted without using Bovie ligature. I was happy to see that we actually had wound edge bleeding. After thorough debridement and irrigation attention was turned to the lateral wound of the foot which was debrided with an ultrasonic debrider and a curette as well and then the dorsal wound was debrided with an ultrasonic Misonic debrider. All wounds are noted to bleed freely without necessitating use of Bovie ligature. At the close the procedure all wounds were thoroughly irrigated with sterile saline and dressed appropriately with sterile Adaptic 4 x 4's and Kerlix without compression. The patient tolerated the procedure well and was sent to holding room in good condition with vital signs stable. This was an excisional debridement are removed and all devitalized necrotic tissue without difficulty.
[2017-07-25] MEDS ORDERED: Acetaminophen 325 MG TABLET PO PRN (15:32)
[2017-07-25] MEDS ORDERED: Naloxone 0.4 MG/ML INJ IVP PRN (15:32)
[2017-07-25] MEDS ORDERED: Ondansetron 4 MG/2 ML VIAL IVP PRN (15:32)
[2017-07-25] MEDS ORDERED: D5% in Water 1,000 ML IVC PRN (15:32)
[2017-07-25] MEDS ORDERED: Dextrose Gel 15 GM PO PRN ×2 (15:32)
[2017-07-25] MEDS ORDERED: *HR* Dextrose 50 % in Water (Syg) 50 ML SYRINGE IVP PRN (15:32)
[2017-07-25] MEDS: *HR* OxyCODONE Immed Rel 5 MG TABLET PO PRN (16:09)
--- NOTE | 2017-07-25 18:38 | Internal Med Progress Note ---
Date of Encounter: 07/25/17 Time of Encounter: 11:00 - Assessment and plan (1) Sepsis Current Visit: Yes Status: Resolved Assessment and plan: Leukocytosis improving; continue IV antibiotics Qualifiers: Sepsis type: sepsis due to unspecified organism Qualified Code(s): A41.9 - Sepsis, unspecified organism (2) Bacteremia Current Visit: Yes Status: Acute Assessment and plan: Secondary to infected foot ulcers Incision drainage and debridement multiple areas left foot swab cultures of left heel wound with tissue cultures Repeat blood cultures negative Continue IV Zosyn ID following (3) Acute kidney injury Current Visit: Yes Status: Acute Assessment and plan: Renal function improving; Monitor closely. (4) CHF (congestive heart failure) Current Visit: Yes Status: Acute Assessment and plan: Echocardiogram showed following: LVEF 35-40%. Moderate global and segmental left ventricular systolic dysfunction. Moderate pulmonary hypertension. Moderate-severe pulmonic regurgitation. Diastolic dysfunction, NOS -Cardiology following and appreciate recommendations. Qualifiers: Congestive heart failure type: systolic Congestive heart failure chronicity : acute Qualified Code(s): I50.21 - Acute systolic (congestive) heart failure (5) Elevated troponin Current Visit: Yes Status: Acute Assessment and plan: -Likely due to demand ischemia due to underlying sepsis. -Cardiology with recommendation for a cardiac catheter which was completed (6) Diabetes Current Visit: Yes Status: Chronic Assessment and plan: Blood sugars continue to be elevated intermittently. Will increase basal and SSI , add nutritional insulin. Imperative for tight blood sugar control due to non- healing vascular wounds. Diabetic diet. H/o- medical noncompliance with poor outpatient followup. 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 mellitus skilled nursing insulin use: without predatory animal exterminator use Qualified Code( s): E11.621 - Type 2 diabetes mellitus with foot ulcer; L97.509 - Non-pressure chronic ulcer of other part of unspecified foot with unspecified severity; L97.509 - Non-pressure chronic ulcer of other part of unspecified foot with unspecified severity; L97.509 - Non-pressure chronic ulcer of other part of unspecified foot with unspecified severity; L97.509 - Non-pressure chronic ulcer of other part of unspecified foot with unspecified severity (7) HTN (hypertension) Current Visit: Yes Status: Chronic Assessment and plan: BP noted to be somewhat uncontrolled. Continue current management.. Qualifiers: Hypertension type: essential hypertension Qualified Code(s): I10 - Essential (primary) hypertension (8) HLD (hyperlipidemia) Current Visit: Yes Status: Chronic Assessment and plan: Continue Statin. Qualifiers: Hyperlipidemia type: unspecified Qualified Code(s): E78.5 - Hyperlipidemia , unspecified (9) Anemia Current Visit: Yes Status: Acute Assessment and plan: H&H low but acceptable no acute bleeding reported at this time continue to monitor Qualifiers: Anemia type: unspecified type Qualified Code(s): D64.9 - Anemia, unspecified (10) Atherosclerosis of [place] arteries of right leg with ulceration of other part of foot Current Visit: Yes Status: Chronic Assessment and plan: Vascular surgery on board. Patient has significant vascular disease in B/L LE. Underwent right popliteal angioplasty and atherectomy. Plan for left leg revascularization procedure. Echocardiogram shows significant systolic dysfunction with EF 35-40%. Cardiology consulted for clearance and further evaluation, like [facility]. (11) Arterial leg ulcer Current Visit: Yes Status: Acute Assessment and plan: Pt will need vascular surgery once clinically stable (12) DVT prophylaxis Current Visit: Yes Status: Acute Assessment and plan: Heparin SQ - Subjective Interval history: No acute events overnight. - Constitutional Vitals: Temp Pulse Resp BP Pulse Ox 97.5 F L 86 18 165/86 93 07/25/17 15:25 07/25/17 17:34 07/25/17 15:25 07/25/17 15:25 07/25/17 15:25 General appearance: Present: cooperative, A&O X 3, answers questions appropriately - Respiratory Respiratory exam: Present: CTAB. Absent: accessory muscle use, rales, rhonchi, wheezes - Cardiovascular Cardiovascular exam: Present: RRR, +S1, +S2. Absent: diastolic murmur, gallop, rubs, systolic murmur Internal Medicine: Result - Labs CBC & Chem 7: 07/25/17 08:10 07/25/17 08:10 Labs: Short CBC 07/25/17 Range/Units 08:10 WBC 15.7 H (4.3-11.1) K/mcL Hgb 9.5 L (12.9-16.9) g/dL Hct 30.8 L (37.5-50.1) % Plt Count 333 (140-400) K/mcL Neutrophils # 13.7 H (1.6-8.9) K/mcL BMP 07/25/17 08:10 Sodium 146 H Potassium 4.0 Chloride 108 Carbon Dioxide 27 BUN 31 H Creatinine 1.23 Glucose 127 H Calcium 8.8 - ABG Interpretation ABG results: PT/INR, D-dimer PT 12.5 Seconds (9.4-12.1) H 07/16/17 01:45 Consult Discharge Plan - Plan Additional Instructions: RISK FACTORS: STOP SMOKING: If you smoke, STOP. Smoking or tobacco use significantly increases your risk of heart disease because nicotine causes the arteries to narrow or constrict. It also causes fats to stick to the artery. Your chances of having a heart attack are greatly increased if you continue to smoke. For more information, call the education line for smoking cessation 1-683-SAHIULM EAT A LOW FAT/CHOLESTEROL/SODIUM DIET: This diet may help reduce your chances of having a heart attack. LIFTING: Avoid lifting anything more than 10 pounds for 5-7 days Prior to straining, laughing, sneezing and/or coughing, apply manual pressure directly over insertion site. ACTIVITY: You may walk or climb stairs as tolerated You can resume sexual activity as tolerated In general, you are encouraged to engage in a minimum of 30 minutes or more of moderate intensity physical activity, such as brisk walking, daily or at least 3 -4 times weekly BATHING Do not submerge the site into water (bath tub, hot tub, swimming pool) for 1 week. This can be a source for infection into the blood stream. You may shower after 24 hours SITE CARE: After 24 hours, you may remove the dressing and leave the site open to air. Keep the site clean and dry. Clean gently and pat dry. You can expect bruising and tenderness that gradually resolve within a week or two. Return to work as instructed per your physician Resume driving as instructed per physician Keep all scheduled follow up appointments Resume medications as instructed IMPORTANT: If prescribed a Platelet Aggregation Inhibitor such as, Plavix, Brilinta or Effient: Duration of therapy is minimum one year These medications are often used in combination with Aspirin in prevention of future heart attacks Never discontinue unless consult with your Eyelet Maker STROKE (CVA) Risk factors for a stroke are: Age, cigarette smoking, diabetes, excessive alcohol consumption, family history, high blood pressure, overweight, physical inactivity, prior stroke, heart attack, diagnosis of carotid artery stenosis or other artery disease. Warning signs: Sudden numbness or weakness of the face, arm or leg; especially on one side of the body, sudden confusion, trouble speaking or understanding, sudden trouble seeing in one or both eyes, sudden trouble walking, dizziness, loss of balance or coordination, sudden severe headache with no cause. Call 911 or go to the Emergency Room. CONGESTIVE HEART FAILURE: If you have been diagnosed with Congestive Heart Failure (CHF) and your symptoms return, make an appointment with your physician Weigh yourself daily. Notify your physician if you have a weight gain of two or more pounds in one day or five or more pounds in one week. If you experience any difficulty breathing, please call 911 BLEEDING: Although the risk of bleeding is minimal, it can happen. If you have any bleeding from the site, apply firm pressure above the puncture site for 10-15 minutes. If the bleeding does not stop, continue manual pressure and call 911 Contact your physician if: You develop a fever greater than 101 degrees Fahrenheit Your site becomes reddened or has any drainage You have an increase in pain or burning at the site or if a large knot forms at the site. If you experience chest pain, shortness of breath, dizziness, or extreme tiredness, stop the activity and rest. Please notify your physicians office if you experience any of these symptoms and they are not relieved by rest please call 911! Referrals: Magda Garcia CNP [Partnered Physician] - 07/30/17 10:35 am Jack Bernard MD [Partnered Physician] - 08/07/17 1:00 pm (1 WEEK AFTER DISCHARGE)
[2017-07-25] MEDS: Ascorbic Acid 500 MG TABLET PO SCH (20:29)
[2017-07-25] MEDS: Sennosides/Docusate Sodium TABLET PO SCH (20:29)
[2017-07-26] MEDS: Insulin DETEMIR 100 UNIT/ML X5UNITS SQ SCH ×2 (01:00→22:00)
[2017-07-26] MEDS: *HR* Morphine 2 MG/ML SYRINGE IVP PRN ×2 (01:00→10:56)
[2017-07-26] MEDS: *HR* OxyCODONE Immed Rel 5 MG TABLET PO PRN ×3 (02:31→15:51)
[2017-07-26] MEDS: *HR* Heparin 5,000 UNIT/ML VIAL SQ SCH ×3 (06:21→22:01)
[2017-07-26] MEDS: Piperacillin/Tazobactam 3.375 GM in D5% in Water (Mini-Bag+) 100 ML IVPB SCH ×3 (06:23→21:59)
[2017-07-26] MEDS: Furosemide 40 MG TABLET PO SCH (08:36)
[2017-07-26] MEDS: Isosorbide MONOnitrate (24 HR) 30 MG TAB.ER.24H PO SCH (08:36)
[2017-07-26] MEDS: Magnesium Oxide 400 MG TABLET PO SCH (08:36)
[2017-07-26] MEDS: Ascorbic Acid 500 MG TABLET PO SCH ×2 (08:37→22:02)
[2017-07-26] MEDS: Multivit/Ca/Min/Fe/FA 1 TAB TABLET PO SCH (08:37)
[2017-07-26] MEDS: Zinc Sulfate 220 MG CAPSULE PO SCH (08:37)
[2017-07-26] MEDS: Nystatin Cream 15 GM TUBE TP SCH ×2 (08:38→22:21)
[2017-07-26] MEDS: Insulin LISPRO 300 UNITS/3 ML VIAL SQ SCH ×7 (08:38→21:54)
[2017-07-26] MEDS: Sennosides/Docusate Sodium TABLET PO SCH ×2 (08:39→22:01)
[2017-07-26 09:51] LABS: Basophils # 0.1 K/mcL (0.0-0.2); Basophils % 0.3 %; Eosinophils # 0.1 K/mcL (0.0-0.6); Eosinophils % 0.6 %; Hematocrit 30.1 % (37.5-50.1); Hemoglobin 9.3 g/dL (12.9-16.9); Immature Granulocytes % 0.9 % (0-4); Lymphocytes # 0.8 K/mcL (0.6-4.6); Lymphocytes % 4.5 %; Mean Corpuscular HGB Conc 30.9 g/dL (31.6-35.5); Mean Corpuscular Volume 93.8 fL (83.0-100.0); Monocytes % 5.4 %; Neutrophils # 15.4 K/mcL (1.6-8.9); Platelet Count 333 K/mcL (140-400); Red Blood Count 3.21 M/mcL (4.19-5.50); Red Cell Distribution Width 17.3 % (11.5-14.5); Segmented Neutrophils % 88.3 %
[2017-07-26 10:01] LABS: BUN/Creatinine Ratio 22 (6-26); Blood Urea Nitrogen 29 mg/dL (8-26); Calcium 8.5 mg/dL (8.6-10.8); Carbon Dioxide 27 mEq/L (19-29); Chloride 106 mEq/L (98-109); Glucose 237 mg/dL (70-99); Osmolality,Calculated 310 (280-300); Potassium 3.8 mEq/L (3.5-4.5); Sodium 143 mEq/L (136-145); eGFR For African Americans > 60 (> 60); eGFR For Non-African Americans 53 (> 60)
--- NOTE | 2017-07-26 11:14 | Infectious Disease Progress No ---
Date of Encounter: 07/26/17 Time of Encounter: 11:12 - Assessment and Plan (1) Sepsis Current Visit: Yes Status: Resolved The patient had two SIRS criteria on admission. Likely secondary to infected arterial ulcers/cellulitis and possible OM of the left foot. Improved. Tachycardia has resolved. WBC back up a little today, but likely secondary to recent surgery. Blood cultures drawn 07/15/17 are positive 1/2 sets for anaerobic GNR. Repeat blood cultures drawn 07/18/17 are negative x 2 sets. Qualifiers: Sepsis type: sepsis due to unspecified organism Qualified Code(s): A41.9 - Sepsis, unspecified organism (2) Bacteremia Current Visit: Yes Status: Resolved Causative organism anaerobic GNR. Blood cultures drawn 07/15/17 are positive 1/2 sets for anaerobic GNR. Most likely a contaminant given that only 1/2 sets is positive. Repeat blood cultures drawn 07/18/17 are negative x 2 sets. (3) Cellulitis Current Visit: Yes Status: Resolved Location: BLE per the medical record. Appears improved as there are no signs of cellulitis at this time. Causative organism unclear, but likely polymicrobial. Likely secondary to infected arterial ulcers. Wound culture grew P. mirabilis, K. oxytoca, and E. faecalis. CT of the BLE negative for OM or abscess, but the patient's WBC continues to be elevated. Podiatry consulted and following. Continue wound care per their recommendations. ESR >130. CRP 78. MRI of the left foot shows findings consistent with early osteomyelitis vs. reactive osteitis. Given the markedly elevated inflammatory markers, concern for early osteomyelitis. Status post I & D of the left heel. Operative report reviewed. No evidence of osteomyelitis intra-op. Cultures were obtained and are pending. Continue Zosyn 3.375 grams IV Q8H. Duration of treatment depends on the clinical picture. Monitor renal function and dose-adjust antibiotics. Qualifiers: Site of cellulitis: extremity Site of cellulitis of extremity: lower extremity Laterality: unspecified laterality Qualified Code(s): L03.119 - Cellulitis of unspecified part of limb (4) Acute kidney injury Current Visit: Yes Status: Acute Likely LUCY. Improved. Continue to trend. Dose-adjust antibiotics. Avoid nephrotoxins as able. (5) Arterial leg ulcer Current Visit: Yes Status: Acute Location: Bilateral feet and right lower leg. ABIs completed 07/16/17 showed moderate disease in the RLE and severe disease in the LLE. Vascular surgery consulted. Status post angiogram with right popliteal arthrectomy with angioplasty 07/17/[address] Bernard. The patient will likely require surgical intervention on the LLE at a later date. Continue wound care per podiatry's recommendations. (6) Weakness generalized Current Visit: Yes Status: Acute (7) Elevated troponin Current Visit: Yes Status: Acute Likely secondary to demand ischemia. Status post [facility] 07/23/17 - no intervention, medical management only. Management per the primary team. (8) Atherosclerosis of [place] arteries of right leg with ulceration of other part of foot Current Visit: Yes Status: Chronic CLIFF showed moderate disease. Vascular surgery consulted and following. Status post RLE popliteal arthrectomy with balloon angioplasty 07/17/[address] Bernard. (9) Atherosclerosis of [place] arteries of left leg with ulceration of other part of foot Current Visit: Yes Status: Chronic CLIFF showed severe LLE disease. Vascular surgery consulted and following. Per Vascular, will likely require further LLE intervention/surgery at a later date. (10) Pressure ulcer of left heel, unstageable Current Visit: Yes Status: Acute Likely multifactorial: pressure ulcer + arterial insufficiency. Patient refuses exam. Podiatry consulted and following. CT scan/XR negative for OM. ESR and CRP markedly elevated. MRI shows possible early OM vs. reactive osteitis. Status post I & D 07/25/[address] Roque. Intra-operative cultures are pending. Operative note reviewed. No gross evidence of OM. Continue wound care per podiatry. Continue antibiotics as above. (11) Anemia Current Visit: Yes Status: Acute Etiology unclear. No acute bleeding noted on exam. Further workup and management per the primary team. Qualifiers: Anemia type: unspecified type Qualified Code(s): D64.9 - Anemia, unspecified (12) Diabetes Current Visit: Yes Status: Chronic Patient reports he has not been taking his diabetic medications for two years. HgbA1C 9%. Recommend aggressive glucose monitoring and control to promote wound healing and prevent re-infection. 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 mellitus fci insulin use: without manager asset use Qualified Code( s): E11.621 - Type 2 diabetes mellitus with foot ulcer; L97.509 - Non-pressure chronic ulcer of other part of unspecified foot with unspecified severity; L97.509 - Non-pressure chronic ulcer of other part of unspecified foot with unspecified severity; L97.509 - Non-pressure chronic ulcer of other part of unspecified foot with unspecified severity; L97.509 - Non-pressure chronic ulcer of other part of unspecified foot with unspecified severity - Subjective Interval history: Patient seen and examined. No acute events noted overnight. Patient states he feels okay today. Sitting up on the side of the bed for the exam. Complains of severe pain in the left foot and mild pain in the right foot. Denies fevers, chills, or rigors. Denies chest pain or shortness of breath, but does complain of a moist, productive cough with brown sputum. Denies nausea, vomiting, or abdominal pain. Denies diarrhea. Ate all of his clear liquid breakfast tray this morning. Hernandez catheter remains patent. Infect Dis PN-Objective Data - Labs CBC & Chem 7: 07/26/17 09:42 07/26/17 09:42 Labs: Laboratory Results - last 24 hr 07/24/17 07/25/17 07/26/17 20:30 16:00 09:42 WBC 17.5 H RBC 3.21 L Hgb 9.3 L Hct 30.1 L MCV 93.8 MCH 29.0 MCHC 30.9 L RDW 17.3 H Plt Count 333 MPV 11.0 Immature Gran % 0.9 Seg Neutrophils % 88.3 Lymphocytes % 4.5 Monocytes % 5.4 Eosinophils % 0.6 Basophils % 0.3 Neutrophils # 15.4 H Lymphocytes # 0.8 Monocytes # 1.0 Eosinophils # 0.1 Basophils # 0.1 Sodium Potassium Chloride Carbon Dioxide BUN Creatinine Est GFR ( Amer) Est GFR (Non-Af Amer) BUN/Creatinine Ratio Glucose POC Glucose 112 H 149 H Calculated Osmolality Calcium 07/26/17 09:42 WBC RBC Hgb Hct MCV MCH MCHC RDW Plt Count MPV Immature Gran % Seg Neutrophils % Lymphocytes % Monocytes % Eosinophils % Basophils % Neutrophils # Lymphocytes # Monocytes # Eosinophils # Basophils # Sodium 143 Potassium 3.8 Chloride 106 Carbon Dioxide 27 BUN 29 H Creatinine 1.31 H Est GFR ( Amer) > 60 Est GFR (Non-Af Amer) 53 L BUN/Creatinine Ratio 22 Glucose 237 H POC Glucose Calculated Osmolality 310 H Calcium 8.5 L Cultures: Cultures 07/25/17 14:58 Surgical Biopsy Culture - Preliminary Left Foot 07/18/17 16:31 Blood Culture - Final Peripheral Venipuncture No growth. 07/18/17 16:31 Blood Culture - Final Peripheral Venipuncture No growth. 07/16/17 16:55 Wound Culture - Final Left Foot Proteus mirabilis Klebsiella oxytoca Enterococcus faecalis Serology 07/16/17 Range/Units 12:45 Urine Color Yellow (Yellow) Urine Clarity Cloudy A (Clear) Urine pH 5.5 (5.0-8.0) pH Units Ur Specific [place] 1.030 H (1.010-1.025) Urine Protein >=300 H (Neg-Trace) mg/dL Urine Glucose (UA) 250 H (Normal) mg/dL Urine Ketones Negative (Negative) mg/dL Urine Blood Negative (Negative) Urine Nitrite Negative (Negative) Urine Bilirubin Small H (Negative) Urine Urobilinogen Normal (Normal) mg/dL Ur Leukocyte Esterase Negative (Negative) Urine Microscopic RBC 5-15 H (0-3) per hpf Urine Microscopic WBC 5-15 H (0-3) per hpf Ur Squamous Epith Cells Many H (None-Few) per lpf Urine Bacteria None Seen (None-Few) per hpf Hyaline Casts None Seen (None-Few) per lpf Ur Culture Indicated? NO (NO) Exam - Constitutional Vitals: Temp Pulse Resp BP Pulse Ox 97.9 F 92 18 178/88 93 07/26/17 08:35 07/26/17 08:35 07/26/17 08:35 07/26/17 08:35 07/26/17 08:35 General appearance: average body habitus, cooperative, no acute distress - Head Head exam: Present: atraumatic, normal inspection, normocephalic - Eye Eye exam: Present: EOMI, normal appearance, PERRL Pupils: Present: normal accommodation - ENT ENT exam: Present: mucous membranes moist - Respiratory Respiratory exam: Present: CTAB. Absent: rales, respiratory distress, rhonchi, wheezes - Cardiovascular Cardiovascular exam: Present: RRR, +S1, +S2 - GI/Abdominal GI/Abdominal exam: Present: normal bowel sounds, soft. Absent: distended, tenderness Additional comments: Hernandez catheter noted to be draining clear yellow urine. - Extremities Exam Extremities exam: Present: pedal edema (1+ BLE) Additional comments: Right foot dressing C/D/I. RLE arterial ulcer noted to the medial aspect of the RLE scabbed without erythema or drainage. Left foot post-op dressing C/D/I. - Neurological Exam Neurological exam: Present: alert, oriented X3, no focal deficits - Psychiatric Psychiatric exam: Present: normal affect, normal mood - Skin Skin exam: Present: dry, intact, normal color, warm Consult Discharge Plan - Plan Additional Instructions: RISK FACTORS: STOP SMOKING: If you smoke, STOP. Smoking or tobacco use significantly increases your risk of heart disease because nicotine causes the arteries to narrow or constrict. It also causes fats to stick to the artery. Your chances of having a heart attack are greatly increased if you continue to smoke. For more information, call the education line for smoking cessation 9-266-MSUGNLN EAT A LOW FAT/CHOLESTEROL/SODIUM DIET: This diet may help reduce your chances of having a heart attack. LIFTING: Avoid lifting anything more than 10 pounds for 5-7 days Prior to straining, laughing, sneezing and/or coughing, apply manual pressure directly over insertion site. ACTIVITY: You may walk or climb stairs as tolerated You can resume sexual activity as tolerated In general, you are encouraged to engage in a minimum of 30 minutes or more of moderate intensity physical activity, such as brisk walking, daily or at least 3 -4 times weekly BATHING Do not submerge the site into water (bath tub, hot tub, swimming pool) for 1 week. This can be a source for infection into the blood stream. You may shower after 24 hours SITE CARE: After 24 hours, you may remove the dressing and leave the site open to air. Keep the site clean and dry. Clean gently and pat dry. You can expect bruising and tenderness that gradually resolve within a week or two. Return to work as instructed per your physician Resume driving as instructed per physician Keep all scheduled follow up appointments Resume medications as instructed IMPORTANT: If prescribed a Platelet Aggregation Inhibitor such as, Plavix, Brilinta or Effient: Duration of therapy is minimum one year These medications are often used in combination with Aspirin in prevention of future heart attacks Never discontinue unless consult with your Watch Electrician STROKE (CVA) Risk factors for a stroke are: Age, cigarette smoking, diabetes, excessive alcohol consumption, family history, high blood pressure, overweight, physical inactivity, prior stroke, heart attack, diagnosis of carotid artery stenosis or other artery disease. Warning signs: Sudden numbness or weakness of the face, arm or leg; especially on one side of the body, sudden confusion, trouble speaking or understanding, sudden trouble seeing in one or both eyes, sudden trouble walking, dizziness, loss of balance or coordination, sudden severe headache with no cause. Call 911 or go to the Emergency Room. CONGESTIVE HEART FAILURE: If you have been diagnosed with Congestive Heart Failure (CHF) and your symptoms return, make an appointment with your physician Weigh yourself daily. Notify your physician if you have a weight gain of two or more pounds in one day or five or more pounds in one week. If you experience any difficulty breathing, please call 911 BLEEDING: Although the risk of bleeding is minimal, it can happen. If you have any bleeding from the site, apply firm pressure above the puncture site for 10-15 minutes. If the bleeding does not stop, continue manual pressure and call 911 Contact your physician if: You develop a fever greater than 101 degrees Fahrenheit Your site becomes reddened or has any drainage You have an increase in pain or burning at the site or if a large knot forms at the site. If you experience chest pain, shortness of breath, dizziness, or extreme tiredness, stop the activity and rest. Please notify your physicians office if you experience any of these symptoms and they are not relieved by rest please call 911! Referrals: Magda Garcia CNP [Partnered Physician] - 07/30/17 10:35 am Jack Bernard MD [Partnered Physician] - 08/07/17 1:00 pm (1 WEEK AFTER DISCHARGE) - Attending Attestation I examined this patient and my medical decision-making was reviewed with the Resident Physician. I agree with the documented findings, disposition and treatment plan as described except to the extent set forth below.
--- NOTE | 2017-07-26 13:41 | Podiatry Progress Note ---
Date of Encounter: 07/26/17 Time of Encounter: 12:00 - Assessment and Plan (1) Cellulitis Current Visit: Yes Status: Resolved Assessment: Cellulitis of BLE BLE ulcerations: arterial ulcerations of BLE and full thickness ulcer of left heel s/p debridement Improvement of cellulitis is noted. Heel wound was surgically debrided yesterday - cultures sent Wound culture polymicrobial - P. mirabilis, K. oxytoca, and E. faecalis.. Infectious disease following for antibiotic recommendations - current recommendation is to Continue Zosyn 3.375 grams IV Q8H. Qualifiers: Site of cellulitis: extremity Site of cellulitis of extremity: lower extremity Laterality: unspecified laterality Qualified Code(s): L03.119 - Cellulitis of unspecified part of limb (2) Diabetic ulcer of both feet Current Visit: Yes Status: Chronic There are continued multiple ulcerations to feet and legs- consistent with arterial disease, diabetes and poor self care however these are improving in appearance Patient underwent successful angiogram with Joana on 07/17/2017 due to ulcerations of bilateral lower extremities in the presence of diminished pulses and prolonged capillary refill times. Right popliteal artery angioplasty with 4 x 150mm balloon was documented per op note however patient needs intervention to LLE pending cardiac clearance Patient underwent cardiac cath without intervention on 07/23 Pulses are to signal only underwent debridement of ulcerations of left heel and foot on 07/25. Continue santyl and dry dressings to wounds of both feet Right foot wounds are showing signs of response to enzymatic debridement therapy - all devitalized, unattached tissue was removed at bedside today, patient tolerated well Patient will need to be followed in wound care clinic with after discharge Will need home health care for dressing changes. (3) Diabetes Current Visit: Yes Status: Chronic Patients glucose readings continue to be in mid 200 range- strict glucose control to promote healing and prevent further complication Consult diabetic education 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 system operator insulin use: without terminal system operator use Qualified Code( s): E11.621 - Type 2 diabetes mellitus with foot ulcer; L97.509 - Non-pressure chronic ulcer of other part of unspecified foot with unspecified severity; L97.509 - Non-pressure chronic ulcer of other part of unspecified foot with unspecified severity; L97.509 - Non-pressure chronic ulcer of other part of unspecified foot with unspecified severity; L97.509 - Non-pressure chronic ulcer of other part of unspecified foot with unspecified severity (4) Pressure ulcer of left heel, unstageable Current Visit: Yes Status: Acute Assessment: pressure ulceration of lateral/left heel Full thickness- s/p debridement Plan: Continue to apply santyl and dry dressing Heel off of bed at all times, heel medics boot in place Will need followed outpatient per in wound care Ankle X-Ray 07/15/17 13:52 IMPRESSION: Soft tissue ulcer in the left heel with diffuse soft tissue swelling consistent with cellulitis. Extensive vascular calcifications suggest diabetes. No definite evidence of osteomyelitis. D/ / Jcak Melendez MD / Jack Melendez MD Interpreting Provider: Jack Melednez MD Foot X-Ray 07/15/17 13:52 IMPRESSION: No acute bone or joint abnormality. D/ / Klever Diez MD / Klever Diez MD Interpreting Provider: Klever Diez MD Lower Extremity CT 07/16/17 17:09 IMPRESSION: Extensive soft tissue edema without radiographic evidence for osteomyelitis. D/ / Marino Lei MD / Marino Lei MD Interpreting Provider: Marino Lei MD Subjective Principal diagnosis: Decreased EF Interval history: Patient p/o day #1 s/p I&D of left heel wound, debridement of wounds of lateral and dorsal left foot per . patient resting comfortably on arrival with dressings intact. States he is not having much pain at this time but has pain with any touch. Patient denies any fevers, chills, n/v or flu like symptoms. Patient continues to have elevated WBC however vital signs are stable and patient is afebrile >24 hours Objective - Vital Signs Vital Signs: Vital Signs Temp Pulse Resp BP Pulse Ox 07/26/17 11:30 97.5 F L 75 18 130/76 100 07/26/17 11:12 97.5 F L 75 18 130/76 100 07/26/17 08:35 97.9 F 92 18 178/88 93 07/26/17 07:41 97.9 F 92 18 178/88 93 07/26/17 04:32 97.9 F 93 18 165/89 94 07/25/17 23:15 98 F 80 16 144/80 100 07/25/17 19:38 97.5 F L 84 17 175/90 100 07/25/17 17:34 86 07/25/17 15:25 97.5 F L 100 18 165/86 93 Intake and Output 07/25/17 07/26/17 07/26/17 23:59 07:59 15:59 Intake Total 400 / 400 100 / 100 340 / 340 Output Total 250 / 250 250 / 250 0 / 0 Balance 150 / 150 -150 / -150 340 / 340 Intake: IV Fluids 100 / 100 100 / 100 Zosyn 3.375 GM In Dextrose 5% ( 100 / 100 100 / 100 Minibag+) 100 ML 100 ML @ 25 mls/hr IVPB Q8H [facility] Rx#: [id number] Oral 400 / 400 240 / 240 Output: Catheter 250 / 250 250 / 250 0 / 0 Other: Weight 86.4 kg Blood Glucose* 123 163 160 Patient Weight 07/26/17 23:59 Weight 86.4 kg - Exam Exam: General Examination: CONSTITUTIONAL: Alert, oriented, in no acute distress, non-toxic. EXTREMITIES: CFT 3-4 seconds all toes. Edema +1 and pedal pulses to signal SKIN: Skin with decreased turgor, decreased subcutaneous tissue, skin thin and shiny with trophic changes associated with comorbidities as described in history.. multiple arterial wounds and pressure wound to left heel NEUROLOGIC: Intact sensation Left heel pressure ulcer- s/p debridement- [id number]- wound bed noted with 80 % granulation tissue and 20% fibrous- no perwound edema or erythema- no odor or drainage Arterial ulcerations of lateral and dorsal left foot- s/p debridement- clean- granulation tissue noted- appear to be attempting to heal- very minimal periwound erythema- no edema- no drainage Right foot arterial ulcerations- with application of santyl there is a large amount of yellow slough, much of the edges is noted be be devitalized and removed using tissue nipper to allow for appropriate healing and assessment. Mild periwound erythema. Minimal drainage, no odor. tenderness to palpation. - Lab Result Diagrams: 07/31/17 04:53 07/31/17 04:53 Labs: Abnormal lab results WBC 17.5 K/mcL (4.3-11.1) H 07/26/17 09:42 RBC 3.21 M/mcL (4.19-5.50) L 07/26/17 09:42 Hgb 9.3 g/dL (12.9-16.9) L 07/26/17 09:42 Hct 30.1 % (37.5-50.1) L 07/26/17 09:42 MCHC 30.9 g/dL (31.6-35.5) L 07/26/17 09:42 RDW 17.3 % (11.5-14.5) H 07/26/17 09:42 Neutrophils # 15.4 K/mcL (1.6-8.9) H 07/26/17 09:42 Polychromasia 1+ (Not Present) A 07/25/17 08:10 Anisocytosis 1+ (Not Present) A 07/25/17 08:10 ESR >= 130 mm/hr (0-10) H 07/22/17 03:46 PT 12.5 Seconds (9.4-12.1) H 07/16/17 01:45 BUN 29 mg/dL (8-26) H 07/26/17 09:42 Creatinine 1.31 mg/dL (0.72-1.25) H 07/26/17 09:42 Est GFR (Non-Af Amer) 53 (> 60) L 07/26/17 09:42 Glucose 237 mg/dL (70-99) H 07/26/17 09:42 POC Glucose 149 (58-89) H 07/25/17 16:00 Hemoglobin A1c 9.3 % (-5.6) H 07/15/17 13:30 Calculated Osmolality 310 (280-300) H 07/26/17 09:42 Calcium 8.5 mg/dL (8.6-10.8) L 07/26/17 09:42 Ionized Calcium 1.14 mmol/L (1.15-1.35) L 07/23/17 13:01 Magnesium 1.5 mg/dL (1.6-2.6) L 07/23/17 13:01 Iron 21 mcg/dL (65-175) L 07/17/17 03:40 % Saturation 10 % (20-55) L 07/17/17 03:40 Transferrin 143 mg/dL (174-364) L 07/17/17 03:40 Ferritin 331 ng/ml (22-275) H 07/17/17 03:40 Alkaline Phosphatase 158 Units/L (38-126) H 07/19/17 03:07 Troponin I 0.04 ng/mL (0-0.03) H* 07/16/17 01:45 C-Reactive Protein 78 mg/L (Less than 5) H 07/22/17 00:35 Albumin 2.2 g/dL (3.5-5.0) L 07/19/17 03:07 Globulin 4.3 g/dL (2.4-3.5) H 07/19/17 03:07 Albumin/Globulin Ratio 0.5 (1.1-2.2) L 07/19/17 03:07 HDL Cholesterol 33 mg/dL (40-59) L 07/16/17 01:45 Urine Clarity Cloudy (Clear) A 07/16/17 12:45 Ur Specific [place] 1.030 (1.010-1.025) H 07/16/17 12:45 Urine Protein >=300 mg/dL (Neg-Trace) H 07/16/17 12:45 Urine Glucose (UA) 250 mg/dL (Normal) H 07/16/17 12:45 Urine Bilirubin Small (Negative) H 07/16/17 12:45 Urine Microscopic RBC 5-15 per hpf (0-3) H 07/16/17 12:45 Urine Microscopic WBC 5-15 per hpf (0-3) H 07/16/17 12:45 Ur Squamous Epith Cells Many per lpf (None-Few) H 07/16/17 12:45 Microbiology, Last 48 Hours 07/25/17 14:58 Surgical Biopsy Culture - Preliminary Left Foot Consult Discharge Plan - Plan Additional Instructions: RISK FACTORS: STOP SMOKING: If you smoke, STOP. Smoking or tobacco use significantly increases your risk of heart disease because nicotine causes the arteries to narrow or constrict. It also causes fats to stick to the artery. Your chances of having a heart attack are greatly increased if you continue to smoke. For more information, call the education line for smoking cessation 2-587-KQPICPB EAT A LOW FAT/CHOLESTEROL/SODIUM DIET: This diet may help reduce your chances of having a heart attack. LIFTING: Avoid lifting anything more than 10 pounds for 5-7 days Prior to straining, laughing, sneezing and/or coughing, apply manual pressure directly over insertion site. ACTIVITY: You may walk or climb stairs as tolerated You can resume sexual activity as tolerated In general, you are encouraged to engage in a minimum of 30 minutes or more of moderate intensity physical activity, such as brisk walking, daily or at least 3 -4 times weekly BATHING Do not submerge the site into water (bath tub, hot tub, swimming pool) for 1 week. This can be a source for infection into the blood stream. You may shower after 24 hours SITE CARE: After 24 hours, you may remove the dressing and leave the site open to air. Keep the site clean and dry. Clean gently and pat dry. You can expect bruising and tenderness that gradually resolve within a week or two. Return to work as instructed per your physician Resume driving as instructed per physician Keep all scheduled follow up appointments Resume medications as instructed IMPORTANT: If prescribed a Platelet Aggregation Inhibitor such as, Plavix, Brilinta or Effient: Duration of therapy is minimum one year These medications are often used in combination with Aspirin in prevention of future heart attacks Never discontinue unless consult with your Cash Management Clerk STROKE (CVA) Risk factors for a stroke are: Age, cigarette smoking, diabetes, excessive alcohol consumption, family history, high blood pressure, overweight, physical inactivity, prior stroke, heart attack, diagnosis of carotid artery stenosis or other artery disease. Warning signs: Sudden numbness or weakness of the face, arm or leg; especially on one side of the body, sudden confusion, trouble speaking or understanding, sudden trouble seeing in one or both eyes, sudden trouble walking, dizziness, loss of balance or coordination, sudden severe headache with no cause. Call 911 or go to the Emergency Room. CONGESTIVE HEART FAILURE: If you have been diagnosed with Congestive Heart Failure (CHF) and your symptoms return, make an appointment with your physician Weigh yourself daily. Notify your physician if you have a weight gain of two or more pounds in one day or five or more pounds in one week. If you experience any difficulty breathing, please call 911 BLEEDING: Although the risk of bleeding is minimal, it can happen. If you have any bleeding from the site, apply firm pressure above the puncture site for 10-15 minutes. If the bleeding does not stop, continue manual pressure and call 911 Contact your physician if: You develop a fever greater than 101 degrees Fahrenheit Your site becomes reddened or has any drainage You have an increase in pain or burning at the site or if a large knot forms at the site. If you experience chest pain, shortness of breath, dizziness, or extreme tiredness, stop the activity and rest. Please notify your physicians office if you experience any of these symptoms and they are not relieved by rest please call 911! Referrals: Magda Garcia CNP [Partnered Physician] - 07/30/17 10:35 am Jack Bernard MD [Partnered Physician] - 08/07/17 1:00 pm (1 WEEK AFTER DISCHARGE)
--- NOTE | 2017-07-26 17:24 | Vascular/[facility]as Progress Note ---
Date of Encounter: 07/25/17 Time of Encounter: 18:10 - Assessment and plan (1) Atherosclerosis of [place]o arteries of right leg with ulceration of other part of foot Current Visit: Yes Status: Chronic The patient has bilateral foot ulcerations due to peripheral vascular disease. He underwent a right popliteal atherectomy and angioplasty. His right foot is warm and has polyphasic dorsalis pedis artery signals. 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 His left pedal signals are diminished due to a left superficial femoral artery occlusion. He also has a left posterior tibial and peroneal artery occlusion. He continues to remain a poor candidate due to his elevated creatinine and his elevated white blood cell count. Continue with antibiotics. Continue with ASA and Plavix. (2) Atherosclerosis of campo arteries of left leg with ulceration of other part of foot Current Visit: Yes Status: Chronic (3) Diabetes Current Visit: Yes Status: Chronic He was counseled again regarding atherosclerotic risk factor reduction. 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 mellitus detention insulin use: without terminal carman use Qualified Code( s): E11.621 - Type 2 diabetes mellitus with foot ulcer; L97.509 - Non-pressure chronic ulcer of other part of unspecified foot with unspecified severity; L97.509 - Non-pressure chronic ulcer of other part of unspecified foot with unspecified severity; L97.509 - Non-pressure chronic ulcer of other part of unspecified foot with unspecified severity; L97.509 - Non-pressure chronic ulcer of other part of unspecified foot with unspecified severity (4) HTN (hypertension) Current Visit: Yes Status: Chronic Qualifiers: Hypertension type: essential hypertension Qualified Code(s): I10 - Essential (primary) hypertension (5) HLD (hyperlipidemia) Current Visit: Yes Status: Chronic Qualifiers: Hyperlipidemia type: unspecified Qualified Code(s): E78.5 - Hyperlipidemia , unspecified - Subjective Interval history: The patient reports adequate pain control. He denies any fevers or chills. He denies chest pain or shortness of breath. Vital Signs, Last 4 Hours Pulse Resp BP Pulse Ox 07/26/17 16:00 77 18 143/69 93 07/26/17 15:42 77 18 143/69 93 - Physical Examination General: Present: Conversant, No Apparent Distress HEENT: Present: Pupils equal Cardiac: Present: Reg Rate and Rhythm Lungs: Present: Normal Breath Sounds Neuro: Present: Alert and responsive, Motor nerves grossly intact, Sensory nerves grossly intact Vascular: Present: Normal capillary refill Abdomen: Present: Soft, Non-tender Skin: Present: Wound/ulcer(s) (bilateral foot ulcers present, erythema noted, no fluctuance) Results 07/31/17 04:53 07/31/17 04:53 Lab Results, Last 24 hours 07/26/17 07/26/17 09:42 09:42 WBC 17.5 H Hgb 9.3 L Hct 30.1 L Plt Count 333 Sodium 143 Potassium 3.8 Chloride 106 Carbon Dioxide 27 BUN 29 H Creatinine 1.31 H Glucose 237 H Calcium 8.5 L Consult Discharge Plan - Plan Additional Instructions: RISK FACTORS: STOP SMOKING: If you smoke, STOP. Smoking or tobacco use significantly increases your risk of heart disease because nicotine causes the arteries to narrow or constrict. It also causes fats to stick to the artery. Your chances of having a heart attack are greatly increased if you continue to smoke. For more information, call the education line for smoking cessation 3-183-NRJTVEP EAT A LOW FAT/CHOLESTEROL/SODIUM DIET: This diet may help reduce your chances of having a heart attack. LIFTING: Avoid lifting anything more than 10 pounds for 5-7 days Prior to straining, laughing, sneezing and/or coughing, apply manual pressure directly over insertion site. ACTIVITY: You may walk or climb stairs as tolerated You can resume sexual activity as tolerated In general, you are encouraged to engage in a minimum of 30 minutes or more of moderate intensity physical activity, such as brisk walking, daily or at least 3 -4 times weekly BATHING Do not submerge the site into water (bath tub, hot tub, swimming pool) for 1 week. This can be a source for infection into the blood stream. You may shower after 24 hours SITE CARE: After 24 hours, you may remove the dressing and leave the site open to air. Keep the site clean and dry. Clean gently and pat dry. You can expect bruising and tenderness that gradually resolve within a week or two. Return to work as instructed per your physician Resume driving as instructed per physician Keep all scheduled follow up appointments Resume medications as instructed IMPORTANT: If prescribed a Platelet Aggregation Inhibitor such as, Plavix, Brilinta or Effient: Duration of therapy is minimum one year These medications are often used in combination with Aspirin in prevention of future heart attacks Never discontinue unless consult with your Plant Taxonomy Teacher STROKE (CVA) Risk factors for a stroke are: Age, cigarette smoking, diabetes, excessive alcohol consumption, family history, high blood pressure, overweight, physical inactivity, prior stroke, heart attack, diagnosis of carotid artery stenosis or other artery disease. Warning signs: Sudden numbness or weakness of the face, arm or leg; especially on one side of the body, sudden confusion, trouble speaking or understanding, sudden trouble seeing in one or both eyes, sudden trouble walking, dizziness, loss of balance or coordination, sudden severe headache with no cause. Call 911 or go to the Emergency Room. CONGESTIVE HEART FAILURE: If you have been diagnosed with Congestive Heart Failure (CHF) and your symptoms return, make an appointment with your physician Weigh yourself daily. Notify your physician if you have a weight gain of two or more pounds in one day or five or more pounds in one week. If you experience any difficulty breathing, please call 911 BLEEDING: Although the risk of bleeding is minimal, it can happen. If you have any bleeding from the site, apply firm pressure above the puncture site for 10-15 minutes. If the bleeding does not stop, continue manual pressure and call 911 Contact your physician if: You develop a fever greater than 101 degrees Fahrenheit Your site becomes reddened or has any drainage You have an increase in pain or burning at the site or if a large knot forms at the site. If you experience chest pain, shortness of breath, dizziness, or extreme tiredness, stop the activity and rest. Please notify your physicians office if you experience any of these symptoms and they are not relieved by rest please call 911! Referrals: Magda Garcia CNP [Partnered Physician] - 07/30/17 10:35 am Jack Bernard MD [Partnered Physician] - 08/07/17 1:00 pm (1 WEEK AFTER DISCHARGE)
--- NOTE | 2017-07-26 17:26 | Vascular/Endovas Progress Note ---
Date of Encounter: 07/24/17 Time of Encounter: 17:00 - Assessment and plan (1) Atherosclerosis of [place] arteries of right leg with ulceration of other part of foot Current Visit: Yes Status: Chronic The patient has peripheral vascular disease with ulceration. He underwent a right popliteal atherectomy and angioplasty. His right foot is warm and has polyphasic dorsalis pedis artery signals. His right foot wounds appear to be slowly healing. 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 His left pedal signals are diminished due to a left superficial femoral artery occlusion. He also has a left posterior tibial and peroneal artery occlusion. Continue with antibiotics, ASA and Plavix. NO evidence of acute limb ischemia. Will await resolution of his cellulitis and elevated WBCs. (2) Atherosclerosis of [place] arteries of left leg with ulceration of other part of foot Current Visit: Yes Status: Chronic (3) Diabetes Current Visit: Yes Status: Chronic He was counseled regarding atherosclerotic risk factor reduction. 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 mellitus intermediate manager insulin use: without intermediate manager use Qualified Code( s): E11.621 - Type 2 diabetes mellitus with foot ulcer; L97.509 - Non-pressure chronic ulcer of other part of unspecified foot with unspecified severity; L97.509 - Non-pressure chronic ulcer of other part of unspecified foot with unspecified severity; L97.509 - Non-pressure chronic ulcer of other part of unspecified foot with unspecified severity; L97.509 - Non-pressure chronic ulcer of other part of unspecified foot with unspecified severity (4) HTN (hypertension) Current Visit: Yes Status: Chronic Qualifiers: Hypertension type: essential hypertension Qualified Code(s): I10 - Essential (primary) hypertension (5) HLD (hyperlipidemia) Current Visit: Yes Status: Chronic Qualifiers: Hyperlipidemia type: unspecified Qualified Code(s): E78.5 - Hyperlipidemia , unspecified - Subjective Interval history: The patient is irritable today. He denies any fevers or chills. He reports hypersensitivity in his feet which are painful to light touch. He denies chest pain or shortness of breath. Vital Signs, Last 4 Hours Pulse Resp BP Pulse Ox 07/26/17 16:00 77 18 143/69 93 10/13/17 15:42 77 18 143/69 93 - Physical Examination General: Present: Conversant HEENT: Present: Pupils equal Cardiac: Present: Reg Rate and Rhythm Lungs: Present: Normal Breath Sounds, No Wheeze, Rales, Rhonchi Neuro: Present: Alert and responsive, No focal deficits noted, Motor nerves grossly intact, Sensory nerves grossly intact Vascular: Present: Normal capillary refill, Pulse, diminished (left dorsalis pedis pulse is weakly biphasic), Pulse, normal (right dorsails pedis pulse is polyphasic) Abdomen: Present: Soft, Non-tender Skin: Present: Wound/ulcer(s) (cellulitis with multiple bilateral lower extremity ulcers noted). Absent: No rashes noted on visualized skin (Right inguinal fungal rash persists) Results 07/31/17 04:53 07/31/17 04:53 Lab Results, Last 24 hours 07/26/17 07/26/17 09:42 09:42 WBC 17.5 H Hgb 9.3 L Hct 30.1 L Plt Count 333 Sodium 143 Potassium 3.8 Chloride 106 Carbon Dioxide 27 BUN 29 H Creatinine 1.31 H Glucose 237 H Calcium 8.5 L Consult Discharge Plan - Plan Additional Instructions: RISK FACTORS: STOP SMOKING: If you smoke, STOP. Smoking or tobacco use significantly increases your risk of heart disease because nicotine causes the arteries to narrow or constrict. It also causes fats to stick to the artery. Your chances of having a heart attack are greatly increased if you continue to smoke. For more information, call the education line for smoking cessation 3-722-LTLEPUP EAT A LOW FAT/CHOLESTEROL/SODIUM DIET: This diet may help reduce your chances of having a heart attack. LIFTING: Avoid lifting anything more than 10 pounds for 5-7 days Prior to straining, laughing, sneezing and/or coughing, apply manual pressure directly over insertion site. ACTIVITY: You may walk or climb stairs as tolerated You can resume sexual activity as tolerated In general, you are encouraged to engage in a minimum of 30 minutes or more of moderate intensity physical activity, such as brisk walking, daily or at least 3 -4 times weekly BATHING Do not submerge the site into water (bath tub, hot tub, swimming pool) for 1 week. This can be a source for infection into the blood stream. You may shower after 24 hours SITE CARE: After 24 hours, you may remove the dressing and leave the site open to air. Keep the site clean and dry. Clean gently and pat dry. You can expect bruising and tenderness that gradually resolve within a week or two. Return to work as instructed per your physician Resume driving as instructed per physician Keep all scheduled follow up appointments Resume medications as instructed IMPORTANT: If prescribed a Platelet Aggregation Inhibitor such as, Plavix, Brilinta or Effient: Duration of therapy is minimum one year These medications are often used in combination with Aspirin in prevention of future heart attacks Never discontinue unless consult with your Remotely Operated Vehicle STROKE (CVA) Risk factors for a stroke are: Age, cigarette smoking, diabetes, excessive alcohol consumption, family history, high blood pressure, overweight, physical inactivity, prior stroke, heart attack, diagnosis of carotid artery stenosis or other artery disease. Warning signs: Sudden numbness or weakness of the face, arm or leg; especially on one side of the body, sudden confusion, trouble speaking or understanding, sudden trouble seeing in one or both eyes, sudden trouble walking, dizziness, loss of balance or coordination, sudden severe headache with no cause. Call 911 or go to the Emergency Room. CONGESTIVE HEART FAILURE: If you have been diagnosed with Congestive Heart Failure (CHF) and your symptoms return, make an appointment with your physician Weigh yourself daily. Notify your physician if you have a weight gain of two or more pounds in one day or five or more pounds in one week. If you experience any difficulty breathing, please call 911 BLEEDING: Although the risk of bleeding is minimal, it can happen. If you have any bleeding from the site, apply firm pressure above the puncture site for 10-15 minutes. If the bleeding does not stop, continue manual pressure and call 911 Contact your physician if: You develop a fever greater than 101 degrees Fahrenheit Your site becomes reddened or has any drainage You have an increase in pain or burning at the site or if a large knot forms at the site. If you experience chest pain, shortness of breath, dizziness, or extreme tiredness, stop the activity and rest. Please notify your physicians office if you experience any of these symptoms and they are not relieved by rest please call 911! Referrals: Magda Garcia CNP [Partnered Physician] - 07/30/17 10:35 am Jack Bernard MD [Partnered Physician] - 08/07/17 1:00 pm (1 WEEK AFTER DISCHARGE)
--- NOTE | 2017-07-26 17:29 | Vascular/End[facility]as Progress Note ---
Date of Encounter: 07/26/17 Time of Encounter: 14:40 - Assessment and plan (1) Atherosclerosis of [place] arteries of right leg with ulceration of other part of foot Current Visit: Yes Status: Chronic The patient has bilateral foot ulcerations due to peripheral vascular disease. He underwent a right popliteal atherectomy and angioplasty. His right foot is warm and has polyphasic dorsalis pedis artery signals. 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 His left pedal signals are diminished due to a left superficial femoral artery occlusion. He also has a left posterior tibial and peroneal artery occlusion. He underwent debridement of his left foor yesterday. His WBC remains elevated, but the overall trend is decreasing. He has been afebrile. If his WBI continues to decline, he may undergo revascularization next week. Continue with ASA and Plavix. (2) Atherosclerosis of [place] arteries of left leg with ulceration of other part of foot Current Visit: Yes Status: Chronic (3) Diabetes Current Visit: Yes Status: Chronic 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 mellitus [facility] insulin use: without technician terminal and repeater use Qualified Code( s): E11.621 - Type 2 diabetes mellitus with foot ulcer; L97.509 - Non-pressure chronic ulcer of other part of unspecified foot with unspecified severity; L97.509 - Non-pressure chronic ulcer of other part of unspecified foot with unspecified severity; L97.509 - Non-pressure chronic ulcer of other part of unspecified foot with unspecified severity; L97.509 - Non-pressure chronic ulcer of other part of unspecified foot with unspecified severity (4) HTN (hypertension) Current Visit: Yes Status: Chronic Qualifiers: Hypertension type: essential hypertension Qualified Code(s): I10 - Essential (primary) hypertension (5) HLD (hyperlipidemia) Current Visit: Yes Status: Chronic Qualifiers: Hyperlipidemia type: unspecified Qualified Code(s): E78.5 - Hyperlipidemia , unspecified - Subjective Interval history: The patient is easily arousable. He reports that he is comfortable this afternoon. He denies any fevers or chills. He denies chest pain or shortness of breath. Vital Signs, Last 4 Hours Pulse Resp BP Pulse Ox 07/26/17 16:00 77 18 143/69 93 07/26/17 15:42 77 18 143/69 93 - Physical Examination General: Present: Conversant, No Apparent Distress HEENT: Present: Pupils equal Cardiac: Present: Reg Rate and Rhythm Lungs: Present: Normal Breath Sounds Neuro: Present: Alert and responsive, Motor nerves grossly intact, Sensory nerves grossly intact Vascular: Present: Normal capillary refill, Pulse, diminished (Left pedal signals monophasic), Pulse, normal (right). Absent: Cyanosis Abdomen: Present: Soft, Non-tender Skin: Present: Other (fungal rash right groin, decreased in size and intensity) Results 07/26/17 09:42 07/26/17 09:42 Lab Results, Last 24 hours 07/26/17 07/26/17 09:42 09:42 WBC 17.5 H Hgb 9.3 L Hct 30.1 L Plt Count 333 Sodium 143 Potassium 3.8 Chloride 106 Carbon Dioxide 27 BUN 29 H Creatinine 1.31 H Glucose 237 H Calcium 8.5 L Consult Discharge Plan - Plan Additional Instructions: RISK FACTORS: STOP SMOKING: If you smoke, STOP. Smoking or tobacco use significantly increases your risk of heart disease because nicotine causes the arteries to narrow or constrict. It also causes fats to stick to the artery. Your chances of having a heart attack are greatly increased if you continue to smoke. For more information, call the education line for smoking cessation 5-926-JYWKJGR EAT A LOW FAT/CHOLESTEROL/SODIUM DIET: This diet may help reduce your chances of having a heart attack. LIFTING: Avoid lifting anything more than 10 pounds for 5-7 days Prior to straining, laughing, sneezing and/or coughing, apply manual pressure directly over insertion site. ACTIVITY: You may walk or climb stairs as tolerated You can resume sexual activity as tolerated In general, you are encouraged to engage in a minimum of 30 minutes or more of moderate intensity physical activity, such as brisk walking, daily or at least 3 -4 times weekly BATHING Do not submerge the site into water (bath tub, hot tub, swimming pool) for 1 week. This can be a source for infection into the blood stream. You may shower after 24 hours SITE CARE: After 24 hours, you may remove the dressing and leave the site open to air. Keep the site clean and dry. Clean gently and pat dry. You can expect bruising and tenderness that gradually resolve within a week or two. Return to work as instructed per your physician Resume driving as instructed per physician Keep all scheduled follow up appointments Resume medications as instructed IMPORTANT: If prescribed a Platelet Aggregation Inhibitor such as, Plavix, Brilinta or Effient: Duration of therapy is minimum one year These medications are often used in combination with Aspirin in prevention of future heart attacks Never discontinue unless consult with your Fire Behavior Analyst STROKE (CVA) Risk factors for a stroke are: Age, cigarette smoking, diabetes, excessive alcohol consumption, family history, high blood pressure, overweight, physical inactivity, prior stroke, heart attack, diagnosis of carotid artery stenosis or other artery disease. Warning signs: Sudden numbness or weakness of the face, arm or leg; especially on one side of the body, sudden confusion, trouble speaking or understanding, sudden trouble seeing in one or both eyes, sudden trouble walking, dizziness, loss of balance or coordination, sudden severe headache with no cause. Call 911 or go to the Emergency Room. CONGESTIVE HEART FAILURE: If you have been diagnosed with Congestive Heart Failure (CHF) and your symptoms return, make an appointment with your physician Weigh yourself daily. Notify your physician if you have a weight gain of two or more pounds in one day or five or more pounds in one week. If you experience any difficulty breathing, please call 911 BLEEDING: Although the risk of bleeding is minimal, it can happen. If you have any bleeding from the site, apply firm pressure above the puncture site for 10-15 minutes. If the bleeding does not stop, continue manual pressure and call 911 Contact your physician if: You develop a fever greater than 101 degrees Fahrenheit Your site becomes reddened or has any drainage You have an increase in pain or burning at the site or if a large knot forms at the site. If you experience chest pain, shortness of breath, dizziness, or extreme tiredness, stop the activity and rest. Please notify your physicians office if you experience any of these symptoms and they are not relieved by rest please call 911! Referrals: Magda Garcia CNP [Partnered Physician] - 07/30/17 10:35 am Jack Bernard MD [Partnered Physician] - 08/07/17 1:00 pm (1 WEEK AFTER DISCHARGE)
--- NOTE | 2017-07-26 19:01 | Internal Med Progress Note ---
Date of Encounter: 07/26/17 Time of Encounter: 11:00 - Assessment and plan (1) Sepsis Current Visit: Yes Status: Resolved Assessment and plan: Leukocytosis improving; continue IV antibiotics Qualifiers: Sepsis type: sepsis due to unspecified organism Qualified Code(s): A41.9 - Sepsis, unspecified organism (2) Bacteremia Current Visit: Yes Status: Resolved Assessment and plan: Secondary to infected foot ulcers Incision drainage and debridement multiple areas left foot swab cultures of left heel wound with tissue cultures Repeat blood cultures negative Continue IV Zosyn ID following (3) Acute kidney injury Current Visit: Yes Status: Acute Assessment and plan: Renal function improving; Monitor closely. (4) CHF (congestive heart failure) Current Visit: Yes Status: Acute Assessment and plan: Echocardiogram showed following: LVEF 35-40%. Moderate global and segmental left ventricular systolic dysfunction. Moderate pulmonary hypertension. Moderate-severe pulmonic regurgitation. Diastolic dysfunction, NOS -Cardiology following and appreciate recommendations. Qualifiers: Congestive heart failure type: systolic Congestive heart failure chronicity : acute Qualified Code(s): I50.21 - Acute systolic (congestive) heart failure (5) Elevated troponin Current Visit: Yes Status: Acute Assessment and plan: -Likely due to demand ischemia due to underlying sepsis. -Cardiology with recommendation for a cardiac catheter which was completed (6) Diabetes Current Visit: Yes Status: Chronic Assessment and plan: Blood sugars continue to be elevated intermittently. Will increase basal and SSI , add nutritional insulin. Imperative for tight blood sugar control due to non- healing vascular wounds. Diabetic diet. H/o- medical noncompliance with poor outpatient followup. 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 mellitus termite exterminator helper insulin use: without termite exterminator helper use Qualified Code( s): E11.621 - Type 2 diabetes mellitus with foot ulcer; L97.509 - Non-pressure chronic ulcer of other part of unspecified foot with unspecified severity; L97.509 - Non-pressure chronic ulcer of other part of unspecified foot with unspecified severity; L97.509 - Non-pressure chronic ulcer of other part of unspecified foot with unspecified severity; L97.509 - Non-pressure chronic ulcer of other part of unspecified foot with unspecified severity (7) HTN (hypertension) Current Visit: Yes Status: Chronic Assessment and plan: BP noted to be somewhat uncontrolled. Continue current management.. Qualifiers: Hypertension type: essential hypertension Qualified Code(s): I10 - Essential (primary) hypertension (8) HLD (hyperlipidemia) Current Visit: Yes Status: Chronic Assessment and plan: Continue Statin. Qualifiers: Hyperlipidemia type: unspecified Qualified Code(s): E78.5 - Hyperlipidemia , unspecified (9) Anemia Current Visit: Yes Status: Acute Assessment and plan: H&H low but acceptable no acute bleeding reported at this time continue to monitor Qualifiers: Anemia type: unspecified type Qualified Code(s): D64.9 - Anemia, unspecified (10) Atherosclerosis of [place] arteries of right leg with ulceration of other part of foot Current Visit: Yes Status: Chronic Assessment and plan: Vascular surgery on board. Patient has significant vascular disease in B/L LE. Underwent right popliteal angioplasty and atherectomy. Plan for left leg revascularization procedure. Echocardiogram shows significant systolic dysfunction with EF 35-40%. Cardiology consulted for clearance and further evaluation, like [facility]. (11) Arterial leg ulcer Current Visit: Yes Status: Acute Assessment and plan: Pt will need vascular surgery once clinically stable (12) DVT prophylaxis Current Visit: Yes Status: Acute Assessment and plan: Heparin SQ - Subjective Interval history: No acute events overnight. - Constitutional Vitals: Temp Pulse Resp BP Pulse Ox 97.3 F L 68 18 121/74 93 07/26/17 18:24 07/26/17 18:24 07/26/17 18:24 07/26/17 18:24 07/26/17 18:24 General appearance: Present: cooperative, A&O X 3, answers questions appropriately - Respiratory Respiratory exam: Present: CTAB. Absent: accessory muscle use, rales, rhonchi, wheezes - Cardiovascular Cardiovascular exam: Present: RRR, +S1, +S2. Absent: diastolic murmur, gallop, rubs, systolic murmur Internal Medicine: Result - Labs CBC & Chem 7: 07/26/17 09:42 07/26/17 09:42 Labs: Short CBC 07/26/17 Range/Units 09:42 WBC 17.5 H (4.3-11.1) K/mcL Hgb 9.3 L (12.9-16.9) g/dL Hct 30.1 L (37.5-50.1) % Plt Count 333 (140-400) K/mcL Neutrophils # 15.4 H (1.6-8.9) K/mcL BMP 07/26/17 09:42 Sodium 143 Potassium 3.8 Chloride 106 Carbon Dioxide 27 BUN 29 H Creatinine 1.31 H Glucose 237 H Calcium 8.5 L - ABG Interpretation ABG results: PT/INR, D-dimer PT 12.5 Seconds (9.4-12.1) H 07/16/17 01:45 Consult Discharge Plan - Plan Additional Instructions: RISK FACTORS: STOP SMOKING: If you smoke, STOP. Smoking or tobacco use significantly increases your risk of heart disease because nicotine causes the arteries to narrow or constrict. It also causes fats to stick to the artery. Your chances of having a heart attack are greatly increased if you continue to smoke. For more information, call the education line for smoking cessation 1-223-ZYYOZCU EAT A LOW FAT/CHOLESTEROL/SODIUM DIET: This diet may help reduce your chances of having a heart attack. LIFTING: Avoid lifting anything more than 10 pounds for 5-7 days Prior to straining, laughing, sneezing and/or coughing, apply manual pressure directly over insertion site. ACTIVITY: You may walk or climb stairs as tolerated You can resume sexual activity as tolerated In general, you are encouraged to engage in a minimum of 30 minutes or more of moderate intensity physical activity, such as brisk walking, daily or at least 3 -4 times weekly BATHING Do not submerge the site into water (bath tub, hot tub, swimming pool) for 1 week. This can be a source for infection into the blood stream. You may shower after 24 hours SITE CARE: After 24 hours, you may remove the dressing and leave the site open to air. Keep the site clean and dry. Clean gently and pat dry. You can expect bruising and tenderness that gradually resolve within a week or two. Return to work as instructed per your physician Resume driving as instructed per physician Keep all scheduled follow up appointments Resume medications as instructed IMPORTANT: If prescribed a Platelet Aggregation Inhibitor such as, Plavix, Brilinta or Effient: Duration of therapy is minimum one year These medications are often used in combination with Aspirin in prevention of future heart attacks Never discontinue unless consult with your Health Screener STROKE (CVA) Risk factors for a stroke are: Age, cigarette smoking, diabetes, excessive alcohol consumption, family history, high blood pressure, overweight, physical inactivity, prior stroke, heart attack, diagnosis of carotid artery stenosis or other artery disease. Warning signs: Sudden numbness or weakness of the face, arm or leg; especially on one side of the body, sudden confusion, trouble speaking or understanding, sudden trouble seeing in one or both eyes, sudden trouble walking, dizziness, loss of balance or coordination, sudden severe headache with no cause. Call 911 or go to the Emergency Room. CONGESTIVE HEART FAILURE: If you have been diagnosed with Congestive Heart Failure (CHF) and your symptoms return, make an appointment with your physician Weigh yourself daily. Notify your physician if you have a weight gain of two or more pounds in one day or five or more pounds in one week. If you experience any difficulty breathing, please call 911 BLEEDING: Although the risk of bleeding is minimal, it can happen. If you have any bleeding from the site, apply firm pressure above the puncture site for 10-15 minutes. If the bleeding does not stop, continue manual pressure and call 911 Contact your physician if: You develop a fever greater than 101 degrees Fahrenheit Your site becomes reddened or has any drainage You have an increase in pain or burning at the site or if a large knot forms at the site. If you experience chest pain, shortness of breath, dizziness, or extreme tiredness, stop the activity and rest. Please notify your physicians office if you experience any of these symptoms and they are not relieved by rest please call 911! Referrals: Magda Garcia CNP [Partnered Physician] - 07/30/17 10:35 am Jcak Bernard MD [Partnered Physician] - 08/07/17 1:00 pm (1 WEEK AFTER DISCHARGE)
[2017-07-27] MEDS: *HR* OxyCODONE Immed Rel 5 MG TABLET PO PRN ×3 (02:19→17:29)
[2017-07-27] MEDS: *HR* Morphine 2 MG/ML SYRINGE IVP PRN ×3 (05:20→21:58)
[2017-07-27] MEDS: *HR* Heparin 5,000 UNIT/ML VIAL SQ SCH ×3 (05:21→21:57)
[2017-07-27] MEDS: Piperacillin/Tazobactam 3.375 GM in D5% in Water (Mini-Bag+) 100 ML IVPB SCH ×3 (05:26→21:00)
[2017-07-27] MEDS: Magnesium Oxide 400 MG TABLET PO SCH (08:22)
[2017-07-27] MEDS: Zinc Sulfate 220 MG CAPSULE PO SCH (08:22)
[2017-07-27] MEDS: Multivit/Ca/Min/Fe/FA 1 TAB TABLET PO SCH (08:22)
[2017-07-27] MEDS: Isosorbide MONOnitrate (24 HR) 30 MG TAB.ER.24H PO SCH (08:22)
[2017-07-27] MEDS: Furosemide 40 MG TABLET PO SCH (08:23)
[2017-07-27] MEDS: Insulin LISPRO 300 UNITS/3 ML VIAL SQ SCH ×7 (08:23→21:25)
[2017-07-27] MEDS: Sennosides/Docusate Sodium TABLET PO SCH ×2 (08:24→21:57)
[2017-07-27] MEDS: Nystatin Cream 15 GM TUBE TP SCH ×2 (08:24→21:59)
[2017-07-27] MEDS: Ascorbic Acid 500 MG TABLET PO SCH ×2 (08:25→21:57)
[2017-07-27 08:28] LABS: Basophils # 0.1 K/mcL (0.0-0.2); Basophils % 0.4 %; Eosinophils # 0.2 K/mcL (0.0-0.6); Eosinophils % 1.5 %; Hematocrit 30.9 % (37.5-50.1); Hemoglobin 9.7 g/dL (12.9-16.9); Immature Granulocytes % 0.6 % (0-4); Lymphocytes # 1.3 K/mcL (0.6-4.6); Lymphocytes % 7.8 %; Mean Corpuscular HGB Conc 31.4 g/dL (31.6-35.5); Mean Corpuscular Hemoglobin 28.9 pg (28.0-33.3); Mean Platelet Volume 10.9 fL (9.4-12.4); Monocytes # 1.2 K/mcL (0.0-1.3); Monocytes % 7.4 %; Neutrophils # 13.4 K/mcL (1.6-8.9); Platelet Count 339 K/mcL (140-400); Red Blood Count 3.36 M/mcL (4.19-5.50); Red Cell Distribution Width 17.5 % (11.5-14.5); Segmented Neutrophils % 82.3 %
[2017-07-27 09:08] LABS: BUN/Creatinine Ratio 25 (6-26); Blood Urea Nitrogen 30 mg/dL (8-26); Calcium 8.6 mg/dL (8.6-10.8); Carbon Dioxide 32 mEq/L (19-29); Chloride 105 mEq/L (98-109); Glucose 80 mg/dL (70-99); Osmolality,Calculated 301 (280-300); Potassium 3.6 mEq/L (3.5-4.5); Sodium 143 mEq/L (136-145); eGFR For African Americans > 60 (> 60); eGFR For Non-African Americans > 60 (> 60)
--- NOTE | 2017-07-27 12:34 | Vascular/Endovas Progress Note ---
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 This is being managed by conservative measures with dressing changes and wound care as well as podiatric debridement and potential future endovascular intervention per Dr. Bernard. - Subjective Interval history: Patient complains of pain in both feet. Note the patient has chronic component plates of pain. He is receiving both oral and intravenous analgesia. He is status post recent debridement per podiatry of the left foot. Please refer to previous notes by Dr. Bernard regarding potential left lower extremity endovascular intervention for known and chronic PAD. - Physical Examination General: Present: Conversant, No Apparent Distress Vascular: Present: Other (Patient's feet are in a protective boots with dressings. These were not removed as the patient was very reluctant and agitated to have any manipulation performed.) Results 07/27/17 08:07 07/27/17 08:07 Lab Results, Last 24 hours 07/27/17 07/27/17 08:07 08:07 WBC 16.3 H Hgb 9.7 L Hct 30.9 L Plt Count 339 Sodium 143 Potassium 3.6 Chloride 105 Carbon Dioxide 32 H BUN 30 H Creatinine 1.18 Glucose 80 Calcium 8.6 Consult Discharge Plan - Plan Additional Instructions: RISK FACTORS: STOP SMOKING: If you smoke, STOP. Smoking or tobacco use significantly increases your risk of heart disease because nicotine causes the arteries to narrow or constrict. It also causes fats to stick to the artery. Your chances of having a heart attack are greatly increased if you continue to smoke. For more information, call the education line for smoking cessation 0-444-AEZDXRI EAT A LOW FAT/CHOLESTEROL/SODIUM DIET: This diet may help reduce your chances of having a heart attack. LIFTING: Avoid lifting anything more than 10 pounds for 5-7 days Prior to straining, laughing, sneezing and/or coughing, apply manual pressure directly over insertion site. ACTIVITY: You may walk or climb stairs as tolerated You can resume sexual activity as tolerated In general, you are encouraged to engage in a minimum of 30 minutes or more of moderate intensity physical activity, such as brisk walking, daily or at least 3 -4 times weekly BATHING Do not submerge the site into water (bath tub, hot tub, swimming pool) for 1 week. This can be a source for infection into the blood stream. You may shower after 24 hours SITE CARE: After 24 hours, you may remove the dressing and leave the site open to air. Keep the site clean and dry. Clean gently and pat dry. You can expect bruising and tenderness that gradually resolve within a week or two. Return to work as instructed per your physician Resume driving as instructed per physician Keep all scheduled follow up appointments Resume medications as instructed IMPORTANT: If prescribed a Platelet Aggregation Inhibitor such as, Plavix, Brilinta or Effient: Duration of therapy is minimum one year These medications are often used in combination with Aspirin in prevention of future heart attacks Never discontinue unless consult with your Yardage Caller STROKE (CVA) Risk factors for a stroke are: Age, cigarette smoking, diabetes, excessive alcohol consumption, family history, high blood pressure, overweight, physical inactivity, prior stroke, heart attack, diagnosis of carotid artery stenosis or other artery disease. Warning signs: Sudden numbness or weakness of the face, arm or leg; especially on one side of the body, sudden confusion, trouble speaking or understanding, sudden trouble seeing in one or both eyes, sudden trouble walking, dizziness, loss of balance or coordination, sudden severe headache with no cause. Call 911 or go to the Emergency Room. CONGESTIVE HEART FAILURE: If you have been diagnosed with Congestive Heart Failure (CHF) and your symptoms return, make an appointment with your physician Weigh yourself daily. Notify your physician if you have a weight gain of two or more pounds in one day or five or more pounds in one week. If you experience any difficulty breathing, please call 911 BLEEDING: Although the risk of bleeding is minimal, it can happen. If you have any bleeding from the site, apply firm pressure above the puncture site for 10-15 minutes. If the bleeding does not stop, continue manual pressure and call 911 Contact your physician if: You develop a fever greater than 101 degrees Fahrenheit Your site becomes reddened or has any drainage You have an increase in pain or burning at the site or if a large knot forms at the site. If you experience chest pain, shortness of breath, dizziness, or extreme tiredness, stop the activity and rest. Please notify your physicians office if you experience any of these symptoms and they are not relieved by rest please call 911! Referrals: Magda Garcia CNP [Partnered Physician] - 07/30/17 10:35 am Jack Bernard MD [Partnered Physician] - 08/07/17 1:00 pm (1 WEEK AFTER DISCHARGE)
--- NOTE | 2017-07-27 18:53 | Internal Med Progress Note ---
Date of Encounter: 07/27/17 Time of Encounter: 11:00 - Assessment and plan (1) Sepsis Current Visit: Yes Status: Resolved Assessment and plan: Leukocytosis improving; continue IV antibiotics Qualifiers: Sepsis type: sepsis due to unspecified organism Qualified Code(s): A41.9 - Sepsis, unspecified organism (2) Bacteremia Current Visit: Yes Status: Resolved Assessment and plan: Secondary to infected foot ulcers Incision drainage and debridement multiple areas left foot swab cultures of left heel wound with tissue cultures Repeat blood cultures negative Continue IV Zosyn ID following (3) Acute kidney injury Current Visit: Yes Status: Acute Assessment and plan: Renal function improving; Monitor closely. (4) CHF (congestive heart failure) Current Visit: Yes Status: Acute Assessment and plan: Echocardiogram showed following: LVEF 35-40%. Moderate global and segmental left ventricular systolic dysfunction. Moderate pulmonary hypertension. Moderate-severe pulmonic regurgitation. Diastolic dysfunction, NOS -Cardiology following and appreciate recommendations. Qualifiers: Congestive heart failure type: systolic Congestive heart failure chronicity : acute Qualified Code(s): I50.21 - Acute systolic (congestive) heart failure (5) Elevated troponin Current Visit: Yes Status: Acute Assessment and plan: -Likely due to demand ischemia due to underlying sepsis. -Cardiology with recommendation for a cardiac catheter which was completed (6) Diabetes Current Visit: Yes Status: Chronic Assessment and plan: Blood sugars continue to be elevated intermittently. Will increase basal and SSI , add nutritional insulin. Imperative for tight blood sugar control due to non- healing vascular wounds. Diabetic diet. H/o- medical noncompliance with poor outpatient followup. 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 mellitus salvage determiner insulin use: without salvage determiner use Qualified Code( s): E11.621 - Type 2 diabetes mellitus with foot ulcer; L97.509 - Non-pressure chronic ulcer of other part of unspecified foot with unspecified severity; L97.509 - Non-pressure chronic ulcer of other part of unspecified foot with unspecified severity; L97.509 - Non-pressure chronic ulcer of other part of unspecified foot with unspecified severity; L97.509 - Non-pressure chronic ulcer of other part of unspecified foot with unspecified severity (7) HTN (hypertension) Current Visit: Yes Status: Chronic Assessment and plan: BP noted to be somewhat uncontrolled. Continue current management.. Qualifiers: Hypertension type: essential hypertension Qualified Code(s): I10 - Essential (primary) hypertension (8) HLD (hyperlipidemia) Current Visit: Yes Status: Chronic Assessment and plan: Continue Statin. Qualifiers: Hyperlipidemia type: unspecified Qualified Code(s): E78.5 - Hyperlipidemia , unspecified (9) Anemia Current Visit: Yes Status: Acute Assessment and plan: H&H low but acceptable no acute bleeding reported at this time continue to monitor Qualifiers: Anemia type: unspecified type Qualified Code(s): D64.9 - Anemia, unspecified (10) Atherosclerosis of [place] arteries of right leg with ulceration of other part of foot Current Visit: Yes Status: Chronic Assessment and plan: Vascular surgery on board. Patient has significant vascular disease in B/L LE. Underwent right popliteal angioplasty and atherectomy. Plan for left leg revascularization procedure. Echocardiogram shows significant systolic dysfunction with EF 35-40%. Cardiology consulted for clearance and further evaluation, like [facility]. (11) Arterial leg ulcer Current Visit: Yes Status: Acute Assessment and plan: Pt will need vascular surgery once clinically stable (12) DVT prophylaxis Current Visit: Yes Status: Acute Assessment and plan: Heparin SQ - Subjective Interval history: No acute events overnight. - Constitutional Vitals: Temp Pulse Resp BP Pulse Ox 98.6 F 75 14 154/98 94 07/27/17 15:30 07/27/17 15:30 07/27/17 15:30 07/27/17 15:30 07/27/17 15:30 General appearance: Present: cooperative, A&O X 3, answers questions appropriately - Respiratory Respiratory exam: Present: CTAB. Absent: accessory muscle use, rales, rhonchi, wheezes - Cardiovascular Cardiovascular exam: Present: RRR, +S1, +S2. Absent: diastolic murmur, gallop, rubs, systolic murmur Internal Medicine: Result - Labs CBC & Chem 7: 07/27/17 08:07 07/27/17 08:07 Labs: Short CBC 07/27/17 Range/Units 08:07 WBC 16.3 H (4.3-11.1) K/mcL Hgb 9.7 L (12.9-16.9) g/dL Hct 30.9 L (37.5-50.1) % Plt Count 339 (140-400) K/mcL Neutrophils # 13.4 H (1.6-8.9) K/mcL BMP 07/27/17 08:07 Sodium 143 Potassium 3.6 Chloride 105 Carbon Dioxide 32 H BUN 30 H Creatinine 1.18 Glucose 80 Calcium 8.6 - ABG Interpretation ABG results: PT/INR, D-dimer PT 12.5 Seconds (9.4-12.1) H 07/16/17 01:45 Consult Discharge Plan - Plan Additional Instructions: RISK FACTORS: STOP SMOKING: If you smoke, STOP. Smoking or tobacco use significantly increases your risk of heart disease because nicotine causes the arteries to narrow or constrict. It also causes fats to stick to the artery. Your chances of having a heart attack are greatly increased if you continue to smoke. For more information, call the education line for smoking cessation 2-627-UNRCFCV EAT A LOW FAT/CHOLESTEROL/SODIUM DIET: This diet may help reduce your chances of having a heart attack. LIFTING: Avoid lifting anything more than 10 pounds for 5-7 days Prior to straining, laughing, sneezing and/or coughing, apply manual pressure directly over insertion site. ACTIVITY: You may walk or climb stairs as tolerated You can resume sexual activity as tolerated In general, you are encouraged to engage in a minimum of 30 minutes or more of moderate intensity physical activity, such as brisk walking, daily or at least 3 -4 times weekly BATHING Do not submerge the site into water (bath tub, hot tub, swimming pool) for 1 week. This can be a source for infection into the blood stream. You may shower after 24 hours SITE CARE: After 24 hours, you may remove the dressing and leave the site open to air. Keep the site clean and dry. Clean gently and pat dry. You can expect bruising and tenderness that gradually resolve within a week or two. Return to work as instructed per your physician Resume driving as instructed per physician Keep all scheduled follow up appointments Resume medications as instructed IMPORTANT: If prescribed a Platelet Aggregation Inhibitor such as, Plavix, Brilinta or Effient: Duration of therapy is minimum one year These medications are often used in combination with Aspirin in prevention of future heart attacks Never discontinue unless consult with your Material Analyst STROKE (CVA) Risk factors for a stroke are: Age, cigarette smoking, diabetes, excessive alcohol consumption, family history, high blood pressure, overweight, physical inactivity, prior stroke, heart attack, diagnosis of carotid artery stenosis or other artery disease. Warning signs: Sudden numbness or weakness of the face, arm or leg; especially on one side of the body, sudden confusion, trouble speaking or understanding, sudden trouble seeing in one or both eyes, sudden trouble walking, dizziness, loss of balance or coordination, sudden severe headache with no cause. Call 911 or go to the Emergency Room. CONGESTIVE HEART FAILURE: If you have been diagnosed with Congestive Heart Failure (CHF) and your symptoms return, make an appointment with your physician Weigh yourself daily. Notify your physician if you have a weight gain of two or more pounds in one day or five or more pounds in one week. If you experience any difficulty breathing, please call 911 BLEEDING: Although the risk of bleeding is minimal, it can happen. If you have any bleeding from the site, apply firm pressure above the puncture site for 10-15 minutes. If the bleeding does not stop, continue manual pressure and call 911 Contact your physician if: You develop a fever greater than 101 degrees Fahrenheit Your site becomes reddened or has any drainage You have an increase in pain or burning at the site or if a large knot forms at the site. If you experience chest pain, shortness of breath, dizziness, or extreme tiredness, stop the activity and rest. Please notify your physicians office if you experience any of these symptoms and they are not relieved by rest please call 911! Referrals: Magda Garcia CNP [Partnered Physician] - 07/30/17 10:35 am Jack Bernard MD [Partnered Physician] - 08/07/17 1:00 pm (1 WEEK AFTER DISCHARGE)
[2017-07-27] MEDS: Insulin DETEMIR 100 UNIT/ML X5UNITS SQ SCH (21:58)
[2017-07-28] MEDS: *HR* OxyCODONE Immed Rel 5 MG TABLET PO PRN ×4 (01:30→20:55)
[2017-07-28] MEDS: Piperacillin/Tazobactam 3.375 GM in D5% in Water (Mini-Bag+) 100 ML IVPB SCH ×3 (06:30→20:52)
[2017-07-28] MEDS: *HR* Heparin 5,000 UNIT/ML VIAL SQ SCH ×3 (06:31→20:52)
[2017-07-28] MEDS: *HR* Morphine 2 MG/ML SYRINGE IVP PRN ×3 (06:35→17:52)
[2017-07-28 08:24] LABS: Basophils # 0.1 K/mcL (0.0-0.2); Basophils % 0.4 %; Eosinophils # 0.2 K/mcL (0.0-0.6); Eosinophils % 1.1 %; Hematocrit 29.8 % (37.5-50.1); Hemoglobin 9.1 g/dL (12.9-16.9); Immature Granulocytes % 0.5 % (0-4); Lymphocytes % 5.6 %; Mean Corpuscular HGB Conc 30.5 g/dL (31.6-35.5); Mean Corpuscular Hemoglobin 28.3 pg (28.0-33.3); Mean Corpuscular Volume 92.8 fL (83.0-100.0); Monocytes # 1.3 K/mcL (0.0-1.3); Monocytes % 6.7 %; Platelet Count 307 K/mcL (140-400); Red Blood Count 3.21 M/mcL (4.19-5.50); Red Cell Distribution Width 17.4 % (11.5-14.5); Segmented Neutrophils % 85.7 %
[2017-07-28 08:39] LABS: BUN/Creatinine Ratio 21 (6-26); Blood Urea Nitrogen 28 mg/dL (8-26); Calcium 8.4 mg/dL (8.6-10.8); Carbon Dioxide 34 mEq/L (19-29); Chloride 105 mEq/L (98-109); Glucose 150 mg/dL (70-99); Osmolality,Calculated 310 (280-300); Potassium 3.9 mEq/L (3.5-4.5); Sodium 146 mEq/L (136-145); eGFR For African Americans > 60 (> 60); eGFR For Non-African Americans 52 (> 60)
[2017-07-28] MEDS: Insulin LISPRO 300 UNITS/3 ML VIAL SQ SCH ×7 (09:01→20:45)
[2017-07-28] MEDS: Zinc Sulfate 220 MG CAPSULE PO SCH (09:02)
[2017-07-28] MEDS: Magnesium Oxide 400 MG TABLET PO SCH (09:02)
[2017-07-28] MEDS: Isosorbide MONOnitrate (24 HR) 30 MG TAB.ER.24H PO SCH (09:02)
[2017-07-28] MEDS: Nystatin Cream 15 GM TUBE TP SCH ×2 (09:02→20:53)
[2017-07-28] MEDS: Multivit/Ca/Min/Fe/FA 1 TAB TABLET PO SCH (09:02)
[2017-07-28] MEDS: Furosemide 40 MG TABLET PO SCH (09:02)
[2017-07-28] MEDS: Ascorbic Acid 500 MG TABLET PO SCH ×2 (09:02→20:51)
[2017-07-28] MEDS: Sennosides/Docusate Sodium TABLET PO SCH ×2 (09:03→20:51)
--- NOTE | 2017-07-28 15:30 | Internal Med Progress Note ---
Date of Encounter: 07/28/17 Time of Encounter: 11:00 - Assessment and plan (1) Pressure ulcer of left heel, unstageable Current Visit: Yes Status: Acute Assessment and plan: -Podiatry following with incision drainage and debridement multiple areas left foot -Swab cultures of left heel wound with tissue cultures are growing gram- negative rods -Repeat blood cultures negative -Patient with persistent leukocytosis but afebrile. -Currently on IV Zosyn -ID following and appreciate any further recommendations. (2) Sepsis Current Visit: Yes Status: Resolved Assessment and plan: -Sepsis has resolved and was suspected to be secondary to bacteremia which has also resolved due to left foot infection. Qualifiers: Sepsis type: sepsis due to unspecified organism Qualified Code(s): A41.9 - Sepsis, unspecified organism (3) Bacteremia Current Visit: Yes Status: Resolved Assessment and plan: -Bacteremia has resolved; suspect was secondary to infected foot ulcers (4) Acute kidney injury Current Visit: Yes Status: Acute Assessment and plan: -Renal function stable; continue to monitor. (5) CHF (congestive heart failure) Current Visit: Yes Status: Acute Assessment and plan: Echocardiogram showed following: LVEF 35-40%. Moderate global and segmental left ventricular systolic dysfunction. Moderate pulmonary hypertension. Moderate-severe pulmonic regurgitation. Diastolic dysfunction, NOS -Cardiology following and appreciate recommendations. Qualifiers: Congestive heart failure type: systolic Congestive heart failure chronicity : acute Qualified Code(s): I50.21 - Acute systolic (congestive) heart failure (6) Elevated troponin Current Visit: Yes Status: Acute Assessment and plan: -Likely due to demand ischemia due to underlying sepsis. -Cardiology with recommendation for a cardiac catheter which was done on and showed moderate two-vessel coronary arterial disease. -Recommendations for optical medical therapy and aggressive risk factor modifications. 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 Qualifiers: Hypertension type: essential hypertension Qualified Code(s): I10 - Essential (primary) hypertension (9) HLD (hyperlipidemia) Current Visit: Yes Status: Chronic Assessment and plan: Continue Statin. Qualifiers: Hyperlipidemia type: unspecified Qualified Code(s): E78.5 - Hyperlipidemia , unspecified (10) Anemia Current Visit: Yes Status: Acute Assessment and plan: -H&H stable -No acute bleeding reported at this time -Continue to monitor Qualifiers: Anemia type: unspecified type Qualified Code(s): D64.9 - Anemia, unspecified (11) Atherosclerosis of [place] arteries of right leg with ulceration of other part of foot Current Visit: Yes Status: Chronic Assessment and plan: Vascular surgery on board. Patient has significant vascular disease in B/L LE. Underwent right popliteal angioplasty and atherectomy. Plan for left leg revascularization procedure. (12) DVT prophylaxis Current Visit: Yes Status: Acute Assessment and plan: Heparin SQ - Subjective Interval history: No acute events overnight. Patient continues to have elevated white count that has been afebrile. - Constitutional Vitals: Temp Pulse Resp BP Pulse Ox 97.9 F 84 20 148/75 96 07/28/17 10:54 07/28/17 15:10 07/28/17 10:54 07/28/17 10:54 07/28/17 10:54 General appearance: Present: cooperative, A&O X 3, answers questions appropriately - Respiratory Respiratory exam: Present: CTAB. Absent: accessory muscle use, rales, rhonchi, wheezes - Cardiovascular Cardiovascular exam: Present: RRR, +S1, +S2. Absent: diastolic murmur, gallop, rubs, systolic murmur Internal Medicine: Result - Labs CBC & Chem 7: 07/28/17 07:42 07/28/17 07:42 Labs: Short CBC 07/28/17 Range/Units 07:42 WBC 18.6 H (4.3-11.1) K/mcL Hgb 9.1 L (12.9-16.9) g/dL Hct 29.8 L (37.5-50.1) % Plt Count 307 (140-400) K/mcL Neutrophils # 16.0 H (1.6-8.9) K/mcL BMP 07/28/17 07:42 Sodium 146 H Potassium 3.9 Chloride 105 Carbon Dioxide 34 H BUN 28 H Creatinine 1.33 H Glucose 150 H Calcium 8.4 L - ABG Interpretation ABG results: PT/INR, D-dimer PT 12.5 Seconds (9.4-12.1) H 07/16/17 01:45 Consult Discharge Plan - Plan Additional Instructions: RISK FACTORS: STOP SMOKING: If you smoke, STOP. Smoking or tobacco use significantly increases your risk of heart disease because nicotine causes the arteries to narrow or constrict. It also causes fats to stick to the artery. Your chances of having a heart attack are greatly increased if you continue to smoke. For more information, call the education line for smoking cessation 9-914-UPNMKRN EAT A LOW FAT/CHOLESTEROL/SODIUM DIET: This diet may help reduce your chances of having a heart attack. LIFTING: Avoid lifting anything more than 10 pounds for 5-7 days Prior to straining, laughing, sneezing and/or coughing, apply manual pressure directly over insertion site. ACTIVITY: You may walk or climb stairs as tolerated You can resume sexual activity as tolerated In general, you are encouraged to engage in a minimum of 30 minutes or more of moderate intensity physical activity, such as brisk walking, daily or at least 3 -4 times weekly BATHING Do not submerge the site into water (bath tub, hot tub, swimming pool) for 1 week. This can be a source for infection into the blood stream. You may shower after 24 hours SITE CARE: After 24 hours, you may remove the dressing and leave the site open to air. Keep the site clean and dry. Clean gently and pat dry. You can expect bruising and tenderness that gradually resolve within a week or two. Return to work as instructed per your physician Resume driving as instructed per physician Keep all scheduled follow up appointments Resume medications as instructed IMPORTANT: If prescribed a Platelet Aggregation Inhibitor such as, Plavix, Brilinta or Effient: Duration of therapy is minimum one year These medications are often used in combination with Aspirin in prevention of future heart attacks Never discontinue unless consult with your Test Engine Operator STROKE (CVA) Risk factors for a stroke are: Age, cigarette smoking, diabetes, excessive alcohol consumption, family history, high blood pressure, overweight, physical inactivity, prior stroke, heart attack, diagnosis of carotid artery stenosis or other artery disease. Warning signs: Sudden numbness or weakness of the face, arm or leg; especially on one side of the body, sudden confusion, trouble speaking or understanding, sudden trouble seeing in one or both eyes, sudden trouble walking, dizziness, loss of balance or coordination, sudden severe headache with no cause. Call 911 or go to the Emergency Room. CONGESTIVE HEART FAILURE: If you have been diagnosed with Congestive Heart Failure (CHF) and your symptoms return, make an appointment with your physician Weigh yourself daily. Notify your physician if you have a weight gain of two or more pounds in one day or five or more pounds in one week. If you experience any difficulty breathing, please call 911 BLEEDING: Although the risk of bleeding is minimal, it can happen. If you have any bleeding from the site, apply firm pressure above the puncture site for 10-15 minutes. If the bleeding does not stop, continue manual pressure and call 911 Contact your physician if: You develop a fever greater than 101 degrees Fahrenheit Your site becomes reddened or has any drainage You have an increase in pain or burning at the site or if a large knot forms at the site. If you experience chest pain, shortness of breath, dizziness, or extreme tiredness, stop the activity and rest. Please notify your physicians office if you experience any of these symptoms and they are not relieved by rest please call 911! Referrals: Magda Garcia CNP [Partnered Physician] - 07/30/17 10:35 am Jack Bernard MD [Partnered Physician] - 08/07/17 1:00 pm (1 WEEK AFTER DISCHARGE)
[2017-07-28] MEDS: Insulin DETEMIR 100 UNIT/ML X5UNITS SQ SCH (20:52)
[2017-07-29] MEDS: *HR* Morphine 2 MG/ML SYRINGE IVP PRN ×4 (04:39→21:39)
[2017-07-29] MEDS: *HR* Heparin 5,000 UNIT/ML VIAL SQ SCH ×3 (04:40→21:39)
[2017-07-29] MEDS: Piperacillin/Tazobactam 3.375 GM in D5% in Water (Mini-Bag+) 100 ML IVPB SCH ×3 (07:06→21:38)
[2017-07-29] MEDS ORDERED: Nitroglycerin 0.4 MG TAB.SUBL SL PRN (07:10)
[2017-07-29 07:52] LABS: Basophils # 0.1 K/mcL (0.0-0.2); Basophils % 0.4 %; Eosinophils # 0.2 K/mcL (0.0-0.6); Eosinophils % 1.5 %; Hematocrit 29.9 % (37.5-50.1); Hemoglobin 9.2 g/dL (12.9-16.9); Immature Granulocytes % 0.5 % (0-4); Lymphocytes # 1.1 K/mcL (0.6-4.6); Lymphocytes % 7.3 %; Mean Corpuscular HGB Conc 30.8 g/dL (31.6-35.5); Mean Corpuscular Hemoglobin 28.7 pg (28.0-33.3); Mean Corpuscular Volume 93.1 fL (83.0-100.0); Mean Platelet Volume 10.9 fL (9.4-12.4); Monocytes # 1.2 K/mcL (0.0-1.3); Monocytes % 7.9 %; Neutrophils # 12.9 K/mcL (1.6-8.9); Platelet Count 278 K/mcL (140-400); Red Blood Count 3.21 M/mcL (4.19-5.50); Red Cell Distribution Width 17.3 % (11.5-14.5); Segmented Neutrophils % 82.4 %
[2017-07-29] MEDS: *HR* OxyCODONE Immed Rel 5 MG TABLET PO PRN ×2 (07:54→14:51)
[2017-07-29] MEDS: Aspirin 325 MG TABLET PO SCH (08:00)
[2017-07-29] MEDS: Zinc Sulfate 220 MG CAPSULE PO SCH (08:00)
[2017-07-29] MEDS: Multivit/Ca/Min/Fe/FA 1 TAB TABLET PO SCH (08:00)
[2017-07-29] MEDS: Isosorbide MONOnitrate (24 HR) 30 MG TAB.ER.24H PO SCH (08:00)
[2017-07-29] MEDS: Sennosides/Docusate Sodium TABLET PO SCH ×2 (08:00→21:27)
[2017-07-29] MEDS: Ascorbic Acid 500 MG TABLET PO SCH ×2 (08:00→21:39)
[2017-07-29] MEDS: Magnesium Oxide 400 MG TABLET PO SCH (08:00)
[2017-07-29] MEDS: Furosemide 40 MG TABLET PO SCH (08:00)
[2017-07-29] MEDS: Insulin LISPRO 300 UNITS/3 ML VIAL SQ SCH ×7 (08:04→21:27)
[2017-07-29 08:06] LABS: BUN/Creatinine Ratio 21 (6-26); Blood Urea Nitrogen 25 mg/dL (8-26); Calcium 8.3 mg/dL (8.6-10.8); Carbon Dioxide 33 mEq/L (19-29); Chloride 104 mEq/L (98-109); Glucose 147 mg/dL (70-99); Osmolality,Calculated 305 (280-300); Potassium 3.7 mEq/L (3.5-4.5); Sodium 144 mEq/L (136-145); eGFR For African Americans > 60 (> 60); eGFR For Non-African Americans > 60 (> 60)
[2017-07-29] MEDS: Nystatin Cream 15 GM TUBE TP SCH ×2 (08:07→21:39)
--- NOTE | 2017-07-29 15:21 | Infectious Disease Progress No ---
Date of Encounter: 07/29/17 Time of Encounter: 15:20 - Assessment and Plan (1) Sepsis Current Visit: Yes Status: Resolved The patient had two SIRS criteria on admission. Likely secondary to infected arterial ulcers/cellulitis and possible OM of the left foot. Improved. Tachycardia has resolved. WBC stable. Blood cultures drawn 07/15/17 are positive 1/2 sets for anaerobic GNR. Repeat blood cultures drawn 07/18/17 are negative x 2 sets. Qualifiers: Sepsis type: sepsis due to unspecified organism Qualified Code(s): A41.9 - Sepsis, unspecified organism (2) Bacteremia Current Visit: Yes Status: Resolved Causative organism anaerobic GNR. Blood cultures drawn 07/15/17 are positive 1/2 sets for anaerobic GNR. Most likely a contaminant given that only 1/2 sets is positive. Repeat blood cultures drawn 07/18/17 are negative x 2 sets. (3) Cellulitis Current Visit: Yes Status: Resolved Location: BLE per the medical record. Appears improved as there are no signs of cellulitis at this time. Previous wound culture grew out P. mirabilis, K. oxytoca, and E. faecalis. Likely secondary to infected arterial ulcers. CT of the BLE negative for OM or abscess, but the patient's WBC continued to be elevated. Podiatry consulted and following. Continue wound care per their recommendations. ESR >130. CRP 78. MRI of the left foot shows findings consistent with early osteomyelitis vs. reactive osteitis. Given the markedly elevated inflammatory markers, concern for early osteomyelitis. Status post I & D of the left heel. Operative report reviewed. No evidence of osteomyelitis intra-op. Cultures were obtained and are growing Shewanella and MSSA. Continue Zosyn 3.375 grams IV Q8H. Duration of treatment depends on the clinical picture. Monitor renal function and dose-adjust antibiotics. Qualifiers: Site of cellulitis: extremity Site of cellulitis of extremity: lower extremity Laterality: unspecified laterality Qualified Code(s): L03.119 - Cellulitis of unspecified part of limb (4) Acute kidney injury Current Visit: Yes Status: Resolved Likely LUCY. Resolved. Continue to trend. Dose-adjust antibiotics. Avoid nephrotoxins as able. 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 ABIs completed 07/16/17 showed moderate disease in the RLE and severe disease in the LLE. Vascular surgery consulted. Status post angiogram with right popliteal arthrectomy with angioplasty 07/17/[address] Bernard. The patient will likely require surgical intervention on the LLE at a later date. Continue wound care per podiatry's recommendations. (6) Weakness generalized Current Visit: Yes Status: Acute (7) Elevated troponin Current Visit: Yes Status: Resolved Likely secondary to demand ischemia. Status post [facility] 07/23/17 - no intervention, medical management only. Management per the primary team. (8) Atherosclerosis of [place] arteries of right leg with ulceration of other part of foot Current Visit: Yes Status: Chronic CLIFF showed moderate disease. Vascular surgery consulted and following. Status post RLE popliteal arthrectomy with balloon angioplasty 07/17/[address] Bernard. (9) Atherosclerosis of [place] arteries of left leg with ulceration of other part of foot Current Visit: Yes Status: Chronic CLIFF showed severe LLE disease. Vascular surgery consulted and following. Per Vascular, will likely require further LLE intervention/surgery at a later date. (10) Pressure ulcer of left heel, unstageable Current Visit: Yes Status: Acute Likely multifactorial: pressure ulcer + arterial insufficiency. Patient refuses exam. Podiatry consulted and following. CT scan/XR negative for OM. ESR and CRP markedly elevated. MRI shows possible early OM vs. reactive osteitis. Status post I & D 07/25/[address] Roque. Intra-operative cultures are pending. Operative note reviewed. No gross evidence of OM. Continue wound care per podiatry. Continue antibiotics as above. (11) Anemia Current Visit: Yes Status: Chronic Etiology unclear. No acute bleeding noted on exam. Further workup and management per the primary team. Qualifiers: Anemia type: unspecified type Qualified Code(s): D64.9 - Anemia, unspecified (12) Diabetes Current Visit: Yes Status: Chronic Patient reports he has not been taking his diabetic medications for two years. HgbA1C 9%. Recommend aggressive glucose monitoring and control to promote wound healing and prevent re-infection. 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 mellitus intermediate frame tender insulin use: without intermediate frame tender use Qualified Code( s): E11.621 - Type 2 diabetes mellitus with foot ulcer; L97.509 - Non-pressure chronic ulcer of other part of unspecified foot with unspecified severity; L97.509 - Non-pressure chronic ulcer of other part of unspecified foot with unspecified severity; L97.509 - Non-pressure chronic ulcer of other part of unspecified foot with unspecified severity; L97.509 - Non-pressure chronic ulcer of other part of unspecified foot with unspecified severity - Subjective Interval history: Patient seen and examined. Weekend notes reviewed. No acute events noted. Patient states he feels okay today. Reports pain "all over." Denies fevers, chills, or rigors. Denies chest pain or shortness of breath, but does complain of a moist, productive cough with brown sputum. Denies nausea, vomiting, or abdominal pain. Denies diarrhea. Hernandez catheter discontinued and patient denies urinary symptoms. Complains of pain in both feet, left worse than right. Infect Dis PN-Objective Data - Labs CBC & Chem 7: 07/30/17 09:39 07/30/17 09:39 Labs: Laboratory Results - last 24 hr 07/28/17 07/28/17 07/28/17 07:32 10:55 16:37 WBC RBC Hgb Hct MCV MCH MCHC RDW Plt Count MPV Immature Gran % Seg Neutrophils % Lymphocytes % Monocytes % Eosinophils % Basophils % Neutrophils # Lymphocytes # Monocytes # Eosinophils # Basophils # Sodium Potassium Chloride Carbon Dioxide BUN Creatinine Est GFR ( Amer) Est GFR (Non-Af Amer) BUN/Creatinine Ratio Glucose POC Glucose 139 H 193 H 138 H Calculated Osmolality Calcium Troponin I 07/28/17 07/29/17 07/29/17 20:44 07:00 07:45 WBC RBC Hgb Hct MCV MCH MCHC RDW Plt Count MPV Immature Gran % Seg Neutrophils % Lymphocytes % Monocytes % Eosinophils % Basophils % Neutrophils # Lymphocytes # Monocytes # Eosinophils # Basophils # Sodium Potassium Chloride Carbon Dioxide BUN Creatinine Est GFR ( Amer) Est GFR (Non-Af Amer) BUN/Creatinine Ratio Glucose POC Glucose 94 H 119 H Calculated Osmolality Calcium Troponin I 0.02 07/29/17 07/29/17 07/29/17 07:45 07:45 11:23 WBC 15.6 H RBC 3.21 L Hgb 9.2 L Hct 29.9 L MCV 93.1 MCH 28.7 MCHC 30.8 L RDW 17.3 H Plt Count 278 MPV 10.9 Immature Gran % 0.5 Seg Neutrophils % 82.4 Lymphocytes % 7.3 Monocytes % 7.9 Eosinophils % 1.5 Basophils % 0.4 Neutrophils # 12.9 H Lymphocytes # 1.1 Monocytes # 1.2 Eosinophils # 0.2 Basophils # 0.1 Sodium 144 Potassium 3.7 Chloride 104 Carbon Dioxide 33 H BUN 25 Creatinine 1.17 Est GFR ( Amer) > 60 Est GFR (Non-Af Amer) > 60 BUN/Creatinine Ratio 21 Glucose 147 H POC Glucose 126 H Calculated Osmolality 305 H Calcium 8.3 L Troponin I Cultures: Cultures 07/25/17 14:58 Surgical Biopsy Culture - Preliminary Left Foot Shewanella putrefaciens Staphylococcus aureus Yeast Species 07/25/17 14:58 Anaerobic Culture - Preliminary Left Foot At this time, no anaerobic growth is present. The culture will be finalized after 5 days of incubation. 07/18/17 16:31 Blood Culture - Final Peripheral Venipuncture No growth. 07/18/17 16:31 Blood Culture - Final Peripheral Venipuncture No growth. 07/16/17 16:55 Wound Culture - Final Left Foot Proteus mirabilis Klebsiella oxytoca Enterococcus faecalis Serology 07/16/17 Range/Units 12:45 Urine Color Yellow (Yellow) Urine Clarity Cloudy A (Clear) Urine pH 5.5 (5.0-8.0) pH Units Ur Specific [place] 1.030 H (1.010-1.025) Urine Protein >=300 H (Neg-Trace) mg/dL Urine Glucose (UA) 250 H (Normal) mg/dL Urine Ketones Negative (Negative) mg/dL Urine Blood Negative (Negative) Urine Nitrite Negative (Negative) Urine Bilirubin Small H (Negative) Urine Urobilinogen Normal (Normal) mg/dL Ur Leukocyte Esterase Negative (Negative) Urine Microscopic RBC 5-15 H (0-3) per hpf Urine Microscopic WBC 5-15 H (0-3) per hpf Ur Squamous Epith Cells Many H (None-Few) per lpf Urine Bacteria None Seen (None-Few) per hpf Hyaline Casts None Seen (None-Few) per lpf Ur Culture Indicated? NO (NO) Exam - Constitutional Vitals: Temp Pulse Resp BP Pulse Ox 97.8 F 74 19 148/81 94 07/29/17 11:24 07/29/17 11:24 07/29/17 11:24 07/29/17 11:24 07/29/17 11:24 General appearance: average body habitus, cooperative, no acute distress - Head Head exam: Present: atraumatic, normal inspection, normocephalic - Eye Eye exam: Present: EOMI, normal appearance, PERRL Pupils: Present: normal accommodation - ENT ENT exam: Present: mucous membranes moist - Neck Neck exam: Present: normal inspection - Respiratory Respiratory exam: Present: CTAB. Absent: rales, respiratory distress, rhonchi, wheezes - Cardiovascular Cardiovascular exam: Present: RRR, +S1, +S2 - GI/Abdominal GI/Abdominal exam: Present: normal bowel sounds, soft. Absent: distended, tenderness - Extremities Exam Extremities exam: Present: pedal edema (1+ BLE), tenderness (BLE). Absent: joint swelling Additional comments: Bilateral foot dressings C/D/I. - Neurological Exam Neurological exam: Present: alert, oriented X3, no focal deficits - Psychiatric Psychiatric exam: Present: normal affect, normal mood - Skin Skin exam: Present: dry, intact, normal color, warm Consult Discharge Plan - Plan Additional Instructions: RISK FACTORS: STOP SMOKING: If you smoke, STOP. Smoking or tobacco use significantly increases your risk of heart disease because nicotine causes the arteries to narrow or constrict. It also causes fats to stick to the artery. Your chances of having a heart attack are greatly increased if you continue to smoke. For more information, call the education line for smoking cessation 7-009-XTHDVJZ EAT A LOW FAT/CHOLESTEROL/SODIUM DIET: This diet may help reduce your chances of having a heart attack. LIFTING: Avoid lifting anything more than 10 pounds for 5-7 days Prior to straining, laughing, sneezing and/or coughing, apply manual pressure directly over insertion site. ACTIVITY: You may walk or climb stairs as tolerated You can resume sexual activity as tolerated In general, you are encouraged to engage in a minimum of 30 minutes or more of moderate intensity physical activity, such as brisk walking, daily or at least 3 -4 times weekly BATHING Do not submerge the site into water (bath tub, hot tub, swimming pool) for 1 week. This can be a source for infection into the blood stream. You may shower after 24 hours SITE CARE: After 24 hours, you may remove the dressing and leave the site open to air. Keep the site clean and dry. Clean gently and pat dry. You can expect bruising and tenderness that gradually resolve within a week or two. Return to work as instructed per your physician Resume driving as instructed per physician Keep all scheduled follow up appointments Resume medications as instructed IMPORTANT: If prescribed a Platelet Aggregation Inhibitor such as, Plavix, Brilinta or Effient: Duration of therapy is minimum one year These medications are often used in combination with Aspirin in prevention of future heart attacks Never discontinue unless consult with your Intermediate Frame Tender STROKE (CVA) Risk factors for a stroke are: Age, cigarette smoking, diabetes, excessive alcohol consumption, family history, high blood pressure, overweight, physical inactivity, prior stroke, heart attack, diagnosis of carotid artery stenosis or other artery disease. Warning signs: Sudden numbness or weakness of the face, arm or leg; especially on one side of the body, sudden confusion, trouble speaking or understanding, sudden trouble seeing in one or both eyes, sudden trouble walking, dizziness, loss of balance or coordination, sudden severe headache with no cause. Call 911 or go to the Emergency Room. CONGESTIVE HEART FAILURE: If you have been diagnosed with Congestive Heart Failure (CHF) and your symptoms return, make an appointment with your physician Weigh yourself daily. Notify your physician if you have a weight gain of two or more pounds in one day or five or more pounds in one week. If you experience any difficulty breathing, please call 911 BLEEDING: Although the risk of bleeding is minimal, it can happen. If you have any bleeding from the site, apply firm pressure above the puncture site for 10-15 minutes. If the bleeding does not stop, continue manual pressure and call 911 Contact your physician if: You develop a fever greater than 101 degrees Fahrenheit Your site becomes reddened or has any drainage You have an increase in pain or burning at the site or if a large knot forms at the site. If you experience chest pain, shortness of breath, dizziness, or extreme tiredness, stop the activity and rest. Please notify your physicians office if you experience any of these symptoms and they are not relieved by rest please call 911! Referrals: Magda Garcia CNP [Partnered Physician] - 07/30/17 10:35 am Jack Bernard MD [Partnered Physician] - 08/07/17 1:00 pm (1 WEEK AFTER DISCHARGE) - Attending Attestation I examined this patient and my medical decision-making was reviewed with the Resident Physician. I agree with the documented findings, disposition and treatment plan as described except to the extent set forth below.
--- NOTE | 2017-07-29 17:28 | Internal Med Progress Note ---
Date of Encounter: 07/29/17 Time of Encounter: 11:00 - Assessment and plan (1) Pressure ulcer of left heel, unstageable Current Visit: Yes Status: Acute Assessment and plan: -Podiatry following with incision drainage and debridement multiple areas left foot -Swab cultures of left heel wound with tissue cultures are growing gram- negative rods -Repeat blood cultures negative -Patient with persistent leukocytosis but afebrile. -Currently on IV Zosyn -ID following and appreciate any further recommendations. (2) Sepsis Current Visit: Yes Status: Resolved Assessment and plan: -Sepsis has resolved and was suspected to be secondary to bacteremia which has also resolved due to left foot infection. Qualifiers: Sepsis type: sepsis due to unspecified organism Qualified Code(s): A41.9 - Sepsis, unspecified organism (3) Bacteremia Current Visit: Yes Status: Resolved Assessment and plan: -Bacteremia has resolved; suspect was secondary to infected foot ulcers (4) Acute kidney injury Current Visit: Yes Status: Resolved Assessment and plan: -Renal function stable; continue to monitor. (5) CHF (congestive heart failure) Current Visit: Yes Status: Acute Assessment and plan: Echocardiogram showed following: LVEF 35-40%. Moderate global and segmental left ventricular systolic dysfunction. Moderate pulmonary hypertension. Moderate-severe pulmonic regurgitation. Diastolic dysfunction, NOS -Cardiology following and appreciate recommendations. Qualifiers: Congestive heart failure type: systolic Congestive heart failure chronicity : acute Qualified Code(s): I50.21 - Acute systolic (congestive) heart failure (6) Elevated troponin Current Visit: Yes Status: Acute Assessment and plan: -Likely due to demand ischemia due to underlying sepsis. -Cardiology with recommendation for a cardiac catheter which was done on and showed moderate two-vessel coronary arterial disease. -Recommendations for optical medical therapy and aggressive risk factor modifications. (7) Diabetes Current Visit: Yes Status: Chronic Assessment and plan: -Blood glucose controlled; continue current medical management 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 press operator insulin use: without shelter use Qualified Code( s): E11.621 - Type 2 diabetes mellitus with foot ulcer; L97.509 - Non-pressure chronic ulcer of other part of unspecified foot with unspecified severity; L97.509 - Non-pressure chronic ulcer of other part of unspecified foot with unspecified severity; L97.509 - Non-pressure chronic ulcer of other part of unspecified foot with unspecified severity; L97.509 - Non-pressure chronic ulcer of other part of unspecified foot with unspecified severity (8) HTN (hypertension) Current Visit: Yes Status: Chronic Assessment and plan: -Blood pressures controlled; continue current management.. Qualifiers: Hypertension type: essential hypertension Qualified Code(s): I10 - Essential (primary) hypertension (9) HLD (hyperlipidemia) Current Visit: Yes Status: Chronic Assessment and plan: Continue Statin. Qualifiers: Hyperlipidemia type: unspecified Qualified Code(s): E78.5 - Hyperlipidemia , unspecified (10) Anemia Current Visit: Yes Status: Acute Assessment and plan: -H&H stable -No acute bleeding reported at this time -Continue to monitor Qualifiers: Anemia type: unspecified type Qualified Code(s): D64.9 - Anemia, unspecified (11) Atherosclerosis of [place] arteries of right leg with ulceration of other part of foot Current Visit: Yes Status: Chronic Assessment and plan: Vascular surgery on board. Patient has significant vascular disease in B/L LE. Underwent right popliteal angioplasty and atherectomy. Plan for left leg revascularization procedure. - Subjective Interval history: No acute events overnight. Patient continues to have elevated white count that has been stable and is afebrile. - Constitutional Vitals: Temp Pulse Resp BP Pulse Ox 98.0 F 83 18 162/78 94 07/29/17 16:50 07/29/17 16:50 07/29/17 16:50 07/29/17 16:50 07/29/17 16:50 General appearance: Present: cooperative, A&O X 3, answers questions appropriately - Respiratory Respiratory exam: Present: CTAB. Absent: accessory muscle use, rales, rhonchi, wheezes - Cardiovascular Cardiovascular exam: Present: RRR, +S1, +S2. Absent: diastolic murmur, gallop, rubs, systolic murmur - Expanded Lower Extremities Exam Lower Leg exam: Present: swelling (+1 pitting bilaterally) Internal Medicine: Result - Labs CBC & Chem 7: 07/29/17 07:45 07/29/17 07:45 Labs: Short CBC 07/29/17 Range/Units 07:45 WBC 15.6 H (4.3-11.1) K/mcL Hgb 9.2 L (12.9-16.9) g/dL Hct 29.9 L (37.5-50.1) % Plt Count 278 (140-400) K/mcL Neutrophils # 12.9 H (1.6-8.9) K/mcL BMP 07/29/17 07:45 Sodium 144 Potassium 3.7 Chloride 104 Carbon Dioxide 33 H BUN 25 Creatinine 1.17 Glucose 147 H Calcium 8.3 L Cardiac Enzymes 07/29/17 Range/Units 07:45 Troponin I 0.02 (0-0.03) ng/mL - ABG Interpretation ABG results: PT/INR, D-dimer PT 12.5 Seconds (9.4-12.1) H 07/16/17 01:45 Consult Discharge Plan - Plan Additional Instructions: RISK FACTORS: STOP SMOKING: If you smoke, STOP. Smoking or tobacco use significantly increases your risk of heart disease because nicotine causes the arteries to narrow or constrict. It also causes fats to stick to the artery. Your chances of having a heart attack are greatly increased if you continue to smoke. For more information, call the education line for smoking cessation 3-152-ADRPPJK EAT A LOW FAT/CHOLESTEROL/SODIUM DIET: This diet may help reduce your chances of having a heart attack. LIFTING: Avoid lifting anything more than 10 pounds for 5-7 days Prior to straining, laughing, sneezing and/or coughing, apply manual pressure directly over insertion site. ACTIVITY: You may walk or climb stairs as tolerated You can resume sexual activity as tolerated In general, you are encouraged to engage in a minimum of 30 minutes or more of moderate intensity physical activity, such as brisk walking, daily or at least 3 -4 times weekly BATHING Do not submerge the site into water (bath tub, hot tub, swimming pool) for 1 week. This can be a source for infection into the blood stream. You may shower after 24 hours SITE CARE: After 24 hours, you may remove the dressing and leave the site open to air. Keep the site clean and dry. Clean gently and pat dry. You can expect bruising and tenderness that gradually resolve within a week or two. Return to work as instructed per your physician Resume driving as instructed per physician Keep all scheduled follow up appointments Resume medications as instructed IMPORTANT: If prescribed a Platelet Aggregation Inhibitor such as, Plavix, Brilinta or Effient: Duration of therapy is minimum one year These medications are often used in combination with Aspirin in prevention of future heart attacks Never discontinue unless consult with your Software Quality Specialist STROKE (CVA) Risk factors for a stroke are: Age, cigarette smoking, diabetes, excessive alcohol consumption, family history, high blood pressure, overweight, physical inactivity, prior stroke, heart attack, diagnosis of carotid artery stenosis or other artery disease. Warning signs: Sudden numbness or weakness of the face, arm or leg; especially on one side of the body, sudden confusion, trouble speaking or understanding, sudden trouble seeing in one or both eyes, sudden trouble walking, dizziness, loss of balance or coordination, sudden severe headache with no cause. Call 911 or go to the Emergency Room. CONGESTIVE HEART FAILURE: If you have been diagnosed with Congestive Heart Failure (CHF) and your symptoms return, make an appointment with your physician Weigh yourself daily. Notify your physician if you have a weight gain of two or more pounds in one day or five or more pounds in one week. If you experience any difficulty breathing, please call 911 BLEEDING: Although the risk of bleeding is minimal, it can happen. If you have any bleeding from the site, apply firm pressure above the puncture site for 10-15 minutes. If the bleeding does not stop, continue manual pressure and call 911 Contact your physician if: You develop a fever greater than 101 degrees Fahrenheit Your site becomes reddened or has any drainage You have an increase in pain or burning at the site or if a large knot forms at the site. If you experience chest pain, shortness of breath, dizziness, or extreme tiredness, stop the activity and rest. Please notify your physicians office if you experience any of these symptoms and they are not relieved by rest please call 911! Referrals: Magda Garcia CNP [Partnered Physician] - 07/30/17 10:35 am Jack Bernard MD [Partnered Physician] - 08/07/17 1:00 pm (1 WEEK AFTER DISCHARGE)
--- NOTE | 2017-07-29 18:12 | Electrocardiograph Report ---
[address] [address] Test Date: 2017-07-29 Pat Name: Varghese Mayorga Department: 110 Room: 2N03 Gender: M Gate Agent: : [id number] Requested By: Jake Bella Order Number: [id number] Reading MD: Martín Melo MD Measurements Intervals [place] Rate: 82 P: [place]: 0 QRS: 80 QRSD: 145 T: 22 QT: 385 QTc: 423 Interpretive Statements ATRIAL FIBRILLATION RIGHT BUNDLE BRANCH BLOCK Electronically Signed On 07-29-2017 18:11:12 EDT by Martín Melo MD
[2017-07-29] MEDS: Insulin DETEMIR 100 UNIT/ML X5UNITS SQ SCH (21:27)
--- NOTE | 2017-07-30 00:20 | Vascular/Endovas Progress Note ---
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 He underwent a right popliteal atherectomy and angioplasty. His right foot is warm and has polyphasic dorsalis pedis artery signals. 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 His left pedal signals are diminished due to a left superficial femoral artery occlusion. He also has a left posterior tibial and peroneal artery occlusion. He underwent debridement of his wounds. He will continue with local wound care. His WBC has increase and his creatinine remains elevated. The patient will ultimately require revascualrization of his left lower extremity. The patient may ultimately require a FEM-POP bypass. Will await normalization of his white blood count before proceeding. Continue with antibiotics. The patient was discussed with Dr. Ragsdale. Continue with ASA and Plavix. (2) Atherosclerosis of platinum arteries of left leg with ulceration of other part of foot Current Visit: Yes Status: Chronic (3) Diabetes Current Visit: Yes Status: Chronic He was counseled regarding atherosclerotic risk factor reduction. 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 mellitus lobsterman insulin use: without lobsterman use Qualified Code( s): E11.621 - Type 2 diabetes mellitus with foot ulcer; L97.509 - Non-pressure chronic ulcer of other part of unspecified foot with unspecified severity; L97.509 - Non-pressure chronic ulcer of other part of unspecified foot with unspecified severity; L97.509 - Non-pressure chronic ulcer of other part of unspecified foot with unspecified severity; L97.509 - Non-pressure chronic ulcer of other part of unspecified foot with unspecified severity (4) HTN (hypertension) Current Visit: Yes Status: Chronic Qualifiers: Hypertension type: essential hypertension Qualified Code(s): I10 - Essential (primary) hypertension (5) HLD (hyperlipidemia) Current Visit: Yes Status: Chronic Qualifiers: Hyperlipidemia type: unspecified Qualified Code(s): E78.5 - Hyperlipidemia , unspecified - Subjective Interval history: The patient reports chronic, but stable foot pain. He denies any fevers or chills. He denies chest pain or shortness of breath. Vital Signs, Last 4 Hours Temp Pulse Resp BP Pulse Ox 07/29/17 23:20 97.9 F 81 18 155/77 95 - Physical Examination General: Present: Conversant, No Apparent Distress Cardiac: Present: Reg Rate and Rhythm Lungs: Present: Normal Breath Sounds Neuro: Present: Alert and responsive, No focal deficits noted Vascular: Present: Normal capillary refill Abdomen: Present: Soft Skin: Present: Wound/ulcer(s) (bialteral feet, minimal erythema, no fluctuance) Results 07/29/17 07:45 07/29/17 07:45 Lab Results, Last 24 hours 07/29/17 07/29/17 07/29/17 07:45 07:45 07:45 WBC 15.6 H Hgb 9.2 L Hct 29.9 L Plt Count 278 Sodium 144 Potassium 3.7 Chloride 104 Carbon Dioxide 33 H BUN 25 Creatinine 1.17 Glucose 147 H Calcium 8.3 L Troponin I 0.02 Consult Discharge Plan - Plan Additional Instructions: RISK FACTORS: STOP SMOKING: If you smoke, STOP. Smoking or tobacco use significantly increases your risk of heart disease because nicotine causes the arteries to narrow or constrict. It also causes fats to stick to the artery. Your chances of having a heart attack are greatly increased if you continue to smoke. For more information, call the education line for smoking cessation 0-965-VESWPHM EAT A LOW FAT/CHOLESTEROL/SODIUM DIET: This diet may help reduce your chances of having a heart attack. LIFTING: Avoid lifting anything more than 10 pounds for 5-7 days Prior to straining, laughing, sneezing and/or coughing, apply manual pressure directly over insertion site. ACTIVITY: You may walk or climb stairs as tolerated You can resume sexual activity as tolerated In general, you are encouraged to engage in a minimum of 30 minutes or more of moderate intensity physical activity, such as brisk walking, daily or at least 3 -4 times weekly BATHING Do not submerge the site into water (bath tub, hot tub, swimming pool) for 1 week. This can be a source for infection into the blood stream. You may shower after 24 hours SITE CARE: After 24 hours, you may remove the dressing and leave the site open to air. Keep the site clean and dry. Clean gently and pat dry. You can expect bruising and tenderness that gradually resolve within a week or two. Return to work as instructed per your physician Resume driving as instructed per physician Keep all scheduled follow up appointments Resume medications as instructed IMPORTANT: If prescribed a Platelet Aggregation Inhibitor such as, Plavix, Brilinta or Effient: Duration of therapy is minimum one year These medications are often used in combination with Aspirin in prevention of future heart attacks Never discontinue unless consult with your Rn Training STROKE (CVA) Risk factors for a stroke are: Age, cigarette smoking, diabetes, excessive alcohol consumption, family history, high blood pressure, overweight, physical inactivity, prior stroke, heart attack, diagnosis of carotid artery stenosis or other artery disease. Warning signs: Sudden numbness or weakness of the face, arm or leg; especially on one side of the body, sudden confusion, trouble speaking or understanding, sudden trouble seeing in one or both eyes, sudden trouble walking, dizziness, loss of balance or coordination, sudden severe headache with no cause. Call 911 or go to the Emergency Room. CONGESTIVE HEART FAILURE: If you have been diagnosed with Congestive Heart Failure (CHF) and your symptoms return, make an appointment with your physician Weigh yourself daily. Notify your physician if you have a weight gain of two or more pounds in one day or five or more pounds in one week. If you experience any difficulty breathing, please call 911 BLEEDING: Although the risk of bleeding is minimal, it can happen. If you have any bleeding from the site, apply firm pressure above the puncture site for 10-15 minutes. If the bleeding does not stop, continue manual pressure and call 911 Contact your physician if: You develop a fever greater than 101 degrees Fahrenheit Your site becomes reddened or has any drainage You have an increase in pain or burning at the site or if a large knot forms at the site. If you experience chest pain, shortness of breath, dizziness, or extreme tiredness, stop the activity and rest. Please notify your physicians office if you experience any of these symptoms and they are not relieved by rest please call 911! Referrals: Magda Garcia CNP [Partnered Physician] - 07/30/17 10:35 am Jack Bernard MD [Partnered Physician] - 08/07/17 1:00 pm (1 WEEK AFTER DISCHARGE)
[2017-07-30] MEDS: *HR* Morphine 2 MG/ML SYRINGE IVP PRN ×2 (02:57→12:03)
[2017-07-30] MEDS: Piperacillin/Tazobactam 3.375 GM in D5% in Water (Mini-Bag+) 100 ML IVPB SCH ×2 (02:59→17:33)
[2017-07-30] MEDS: *HR* Heparin 5,000 UNIT/ML VIAL SQ SCH ×3 (03:04→20:32)
[2017-07-30] MEDS: Ascorbic Acid 500 MG TABLET PO SCH ×2 (07:55→20:32)
[2017-07-30] MEDS: *HR* OxyCODONE Immed Rel 5 MG TABLET PO PRN ×2 (07:56→18:47)
[2017-07-30] MEDS: Sennosides/Docusate Sodium TABLET PO SCH ×2 (07:56→20:32)
[2017-07-30] MEDS: Aspirin 325 MG TABLET PO SCH (07:56)
[2017-07-30] MEDS: Furosemide 40 MG TABLET PO SCH (07:56)
[2017-07-30] MEDS: Magnesium Oxide 400 MG TABLET PO SCH (07:56)
[2017-07-30] MEDS: Zinc Sulfate 220 MG CAPSULE PO SCH (07:56)
[2017-07-30] MEDS: Multivit/Ca/Min/Fe/FA 1 TAB TABLET PO SCH (07:56)
[2017-07-30] MEDS: Isosorbide MONOnitrate (24 HR) 30 MG TAB.ER.24H PO SCH (07:56)
[2017-07-30] MEDS: Insulin LISPRO 300 UNITS/3 ML VIAL SQ SCH ×7 (07:57→20:29)
[2017-07-30] MEDS: Nystatin Cream 15 GM TUBE TP SCH (07:58)
--- NOTE | 2017-07-30 09:10 | Internal Med Progress Note ---
Date of Encounter: 07/30/17 Time of Encounter: 09:07 - Assessment and plan (1) Arterial leg ulcer Current Visit: Yes Status: Chronic Assessment and plan: Location: Bilateral feet and right lower leg. ABIs completed 07/16/17 showed moderate disease in the RLE and severe disease in the LLE. Vascular surgery is following, Status post angiogram with right popliteal arthrectomy with angioplasty 07/17/[address] Bernard. Awaiting LLE intervention, input appreciated (2) CAD (coronary artery disease) Current Visit: Yes Status: Chronic Assessment and plan: Chronic, stable, continue current meds-ASA/BB/Lipitor/Isosorbide/Nitro No chest pain Qualifiers: Coronary Disease-Associated Artery/Lesion type: rincon artery [place] vs. 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 Patient does have 1+ pitting pedal edema bilaterally. Echo showed LVEF 35-40%, Moderate global and segmental left ventricular systolic dysfunction, Moderate pulmonary hypertension, Moderate-severe pulmonic regurgitation Continue Lasix/BB/ No ACEI/ARB due to YUMIKO on admission Labs have been ordered today, if normal, will start low dose ACEI Continue daily weights/treatment intake and output. Qualifiers: Congestive heart failure type: systolic Congestive heart failure chronicity : acute on chronic Qualified Code(s): I50.23 - Acute on chronic systolic ( congestive) heart failure (4) DVT prophylaxis Current Visit: Yes Status: Acute Assessment and plan: Heparin SQ (5) Pressure ulcer of left heel, unstageable Current Visit: Yes Status: Acute Assessment and plan: -Podiatry following with incision drainage and debridement multiple areas left foot -Swab cultures of left heel wound with tissue cultures are growing multiple organisms -Repeat blood cultures negative -Patient with persistent leukocytosis but afebrile. Patient has received 14 days of Zosyn IV we will discontinue at this time. Infectious disease is following, follow labs from today. May start patient on Levaquin since all of the organisms are sensitive to Levaquin. (6) Diabetes Current Visit: Yes Status: Chronic Assessment and plan: -Blood glucose controlled; continue current medical management 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 mellitus exterminator termite insulin use: without assisted use Qualified Code( s): E11.621 - Type 2 diabetes mellitus with foot ulcer; L97.509 - Non-pressure chronic ulcer of other part of unspecified foot with unspecified severity; L97.509 - Non-pressure chronic ulcer of other part of unspecified foot with unspecified severity; L97.509 - Non-pressure chronic ulcer of other part of unspecified foot with unspecified severity; L97.509 - Non-pressure chronic ulcer of other part of unspecified foot with unspecified severity (7) HLD (hyperlipidemia) Current Visit: Yes Status: Chronic Assessment and plan: Continue Statin. Qualifiers: Hyperlipidemia type: unspecified Qualified Code(s): E78.5 - Hyperlipidemia , unspecified (8) HTN (hypertension) Current Visit: Yes Status: Chronic Assessment and plan: -Blood pressures controlled; continue current management.. Qualifiers: Hypertension type: essential hypertension Qualified Code(s): I10 - Essential (primary) hypertension (9) Acute kidney injury Current Visit: Yes Status: Resolved Assessment and plan: Stable, follow Chem-7 from today. (10) Bacteremia Current Visit: Yes Status: Resolved Assessment and plan: -Bacteremia has resolved; suspect was contamination, and also possibly secondary to infected foot ulcers Blood cultures drawn 07/15/17 were positive 1/2 sets for anaerobic GNR. Most likely a contaminant given that only 1/2 sets is positive. Repeat blood cultures drawn 07/18/17 are negative x 2 sets. (11) Cellulitis Current Visit: Yes Status: Resolved Assessment and plan: Likely secondary to infected arterial ulcers. CT of the BLE negative for OM or abscess, but the patient's WBC continued to be elevated. MRI of the left foot shows findings consistent with early osteomyelitis vs. reactive osteitis. Given the markedly elevated inflammatory markers, concern for early osteomyelitis. Status post I & D of the left heel. Operative report reviewed. No evidence of osteomyelitis intra-op. Cultures were obtained and are growing Shewanella and MRSA. Patient has received 14 days of Zosyn, will discontinue and possibly change to Levaquin, microbioolgy noted, ID recommendation is pending Qualifiers: Site of cellulitis: extremity Site of cellulitis of extremity: lower extremity Laterality: unspecified laterality Qualified Code(s): L03.119 - Cellulitis of unspecified part of limb (12) Sepsis Current Visit: Yes Status: Resolved Assessment and plan: -Sepsis has resolved and was suspected to be secondary to bacteremia which has also resolved due to left foot infection. Qualifiers: Sepsis type: sepsis due to unspecified organism Qualified Code(s): A41.9 - Sepsis, unspecified organism (13) Anemia Current Visit: Yes Status: Chronic Assessment and plan: -H&H stable -No acute bleeding reported at this time -Continue to monitor Qualifiers: Anemia type: unspecified type Qualified Code(s): D64.9 - Anemia, unspecified - Subjective Interval history: Patient seen and examined at bedside 77 M with sever vascular disease, admitted for sepsis with bacteremia, infected Lt foot ulcer, PAD with L femoral/tibial artery occlusion Vascular/ID is following Chart review revealed multiple organisms in wound culture including MSA/ Shewanellea/jake/proteus/klebsiella/Enterococcus, patient has been on Zosyn IV for 14 days, leukocytosis persists, renal function fluctuating, awaiting revascualrization of his left lower extremity He denies new complains, but seem quite agitated this morning - Constitutional Vitals: Temp Pulse Resp BP Pulse Ox 98 F 87 16 167/92 90 07/30/17 07:32 07/30/17 07:32 07/30/17 07:32 07/30/17 07:32 07/30/17 07:32 General appearance: Present: cooperative, A&O X 3, no acute distress, answers questions appropriately - Head Head exam: Present: atraumatic, normocephalic - Eye Eye exam: Present: PERRL, conjuntiva pink, sclera anicteric Pupils: Present: PERRL - Respiratory Respiratory exam: Present: CTAB. Absent: accessory muscle use, rales, rhonchi, wheezes - Cardiovascular Cardiovascular exam: Present: RRR, +S1, +S2. Absent: diastolic murmur, gallop, rubs, systolic murmur - GI/Abdominal GI/Abdominal exam: Present: normal bowel sounds, soft, no peritoneal signs. Absent: distended, tenderness - Extremities Exam Additional comments: Bilateral piting pedal edema, chronic foot ulcer with clean wound dressing - Neurological Exam Neurological exam: Present: alert, CN II-XII intact, oriented X3, no focal deficits. Absent: pronater drift, facial droop, speech deficit - Skin Skin exam: Present: dry Internal Medicine: Result - Labs CBC & Chem 7: 07/30/17 09:39 07/30/17 09:39 - ABG Interpretation ABG results: PT/INR, D-dimer PT 12.5 Seconds (9.4-12.1) H 07/16/17 01:45 Consult Discharge Plan - Plan Additional Instructions: RISK FACTORS: STOP SMOKING: If you smoke, STOP. Smoking or tobacco use significantly increases your risk of heart disease because nicotine causes the arteries to narrow or constrict. It also causes fats to stick to the artery. Your chances of having a heart attack are greatly increased if you continue to smoke. For more information, call the education line for smoking cessation 1-609-YGEXXRF EAT A LOW FAT/CHOLESTEROL/SODIUM DIET: This diet may help reduce your chances of having a heart attack. LIFTING: Avoid lifting anything more than 10 pounds for 5-7 days Prior to straining, laughing, sneezing and/or coughing, apply manual pressure directly over insertion site. ACTIVITY: You may walk or climb stairs as tolerated You can resume sexual activity as tolerated In general, you are encouraged to engage in a minimum of 30 minutes or more of moderate intensity physical activity, such as brisk walking, daily or at least 3 -4 times weekly BATHING Do not submerge the site into water (bath tub, hot tub, swimming pool) for 1 week. This can be a source for infection into the blood stream. You may shower after 24 hours SITE CARE: After 24 hours, you may remove the dressing and leave the site open to air. Keep the site clean and dry. Clean gently and pat dry. You can expect bruising and tenderness that gradually resolve within a week or two. Return to work as instructed per your physician Resume driving as instructed per physician Keep all scheduled follow up appointments Resume medications as instructed IMPORTANT: If prescribed a Platelet Aggregation Inhibitor such as, Plavix, Brilinta or Effient: Duration of therapy is minimum one year These medications are often used in combination with Aspirin in prevention of future heart attacks Never discontinue unless consult with your [employer] STROKE (CVA) Risk factors for a stroke are: Age, cigarette smoking, diabetes, excessive alcohol consumption, family history, high blood pressure, overweight, physical inactivity, prior stroke, heart attack, diagnosis of carotid artery stenosis or other artery disease. Warning signs: Sudden numbness or weakness of the face, arm or leg; especially on one side of the body, sudden confusion, trouble speaking or understanding, sudden trouble seeing in one or both eyes, sudden trouble walking, dizziness, loss of balance or coordination, sudden severe headache with no cause. Call 911 or go to the Emergency Room. CONGESTIVE HEART FAILURE: If you have been diagnosed with Congestive Heart Failure (CHF) and your symptoms return, make an appointment with your physician Weigh yourself daily. Notify your physician if you have a weight gain of two or more pounds in one day or five or more pounds in one week. If you experience any difficulty breathing, please call 911 BLEEDING: Although the risk of bleeding is minimal, it can happen. If you have any bleeding from the site, apply firm pressure above the puncture site for 10-15 minutes. If the bleeding does not stop, continue manual pressure and call 911 Contact your physician if: You develop a fever greater than 101 degrees Fahrenheit Your site becomes reddened or has any drainage You have an increase in pain or burning at the site or if a large knot forms at the site. If you experience chest pain, shortness of breath, dizziness, or extreme tiredness, stop the activity and rest. Please notify your physicians office if you experience any of these symptoms and they are not relieved by rest please call 911! Referrals: Magda Garcia CNP [Partnered Physician] - 07/30/17 10:35 am Jack Bernard MD [Partnered Physician] - 08/07/17 1:00 pm (1 WEEK AFTER DISCHARGE)
[2017-07-30 09:46] LABS: Basophils # 0.1 K/mcL (0.0-0.2); Basophils % 0.4 %; Eosinophils # 0.2 K/mcL (0.0-0.6); Eosinophils % 1.2 %; Hematocrit 28.3 % (37.5-50.1); Hemoglobin 8.8 g/dL (12.9-16.9); Immature Granulocytes % 0.7 % (0-4); Lymphocytes # 0.9 K/mcL (0.6-4.6); Lymphocytes % 5.5 %; Mean Corpuscular HGB Conc 31.1 g/dL (31.6-35.5); Mean Corpuscular Hemoglobin 29.1 pg (28.0-33.3); Mean Corpuscular Volume 93.7 fL (83.0-100.0); Mean Platelet Volume 10.7 fL (9.4-12.4); Monocytes % 6.1 %; Neutrophils # 14.5 K/mcL (1.6-8.9); Platelet Count 269 K/mcL (140-400); Red Blood Count 3.02 M/mcL (4.19-5.50); Red Cell Distribution Width 17.3 % (11.5-14.5); Segmented Neutrophils % 86.1 %
[2017-07-30 09:58] LABS: BUN/Creatinine Ratio 20 (6-26); Blood Urea Nitrogen 24 mg/dL (8-26); Calcium 8.4 mg/dL (8.6-10.8); Carbon Dioxide 35 mEq/L (19-29); Chloride 104 mEq/L (98-109); Glucose 104 mg/dL (70-99); Osmolality,Calculated 304 (280-300); Potassium 3.4 mEq/L (3.5-4.5); Sodium 145 mEq/L (136-145); eGFR For African Americans > 60 (> 60); eGFR For Non-African Americans 60 (> 60)
[2017-07-30] MEDS ORDERED: Levofloxacin 750 MG/150 ML 750 MG/150 ML BAG IVPB SCH (11:00)
--- NOTE | 2017-07-30 12:05 | Infectious Disease Progress No ---
Date of Encounter: 07/30/17 Time of Encounter: 12:03 - Assessment and Plan (1) Sepsis Current Visit: Yes Status: Resolved The patient had two SIRS criteria on admission. Likely secondary to infected arterial ulcers/cellulitis and possible OM of the left foot. Improved. Tachycardia has resolved. WBC elevated, but stable. This is likely secondary to acute inflammatory process rather than infectious process based on the clinical picture. Blood cultures drawn 07/15/17 are positive 1/2 sets for anaerobic GNR. Repeat blood cultures drawn 07/18/17 are negative x 2 sets. Qualifiers: Sepsis type: sepsis due to unspecified organism Qualified Code(s): A41.9 - Sepsis, unspecified organism (2) Bacteremia Current Visit: Yes Status: Resolved Causative organism anaerobic GNR. Blood cultures drawn 07/15/17 are positive 1/2 sets for anaerobic GNR. Most likely a contaminant given that only 1/2 sets is positive. Repeat blood cultures drawn 07/18/17 are negative x 2 sets. (3) Cellulitis Current Visit: Yes Status: Resolved Location: BLE per the medical record. Appears improved as there are no signs of cellulitis at this time. Previous wound culture grew out P. mirabilis, K. oxytoca, and E. faecalis. Likely secondary to infected arterial ulcers. CT of the BLE negative for OM or abscess, but the patient's WBC continued to be elevated. Podiatry consulted and following. Continue wound care per their recommendations. ESR >130. CRP 78. MRI of the left foot shows findings consistent with early osteomyelitis vs. reactive osteitis. Given the markedly elevated inflammatory markers, concern for early osteomyelitis. Status post I & D of the left heel. Operative report reviewed. No evidence of osteomyelitis intra-op. Cultures were obtained and are growing Shewanella and MRSA. Given the markedly elevated inflammatory markers, high index of suspicion that there is osteomyelitis. The patient would likely benefit from 4-6 weeks of IV antibiotics. Zosyn switched to Levaquin per the primary team. Recommend switching the patient back to Zosyn as Levaquin does not adequately treat Shewanella. Add Vancomycin IV for MRSA coverage. Pharmacy to dose. Goal trough 10-15. Duration of treatment depends on the clinical picture. Monitor renal function and dose-adjust antibiotics. Qualifiers: Site of cellulitis: extremity Site of cellulitis of extremity: lower extremity Laterality: unspecified laterality Qualified Code(s): L03.119 - Cellulitis of unspecified part of limb (4) Acute kidney injury Current Visit: Yes Status: Resolved Likely LUCY. Resolved. Continue to trend. Dose-adjust antibiotics. Avoid nephrotoxins as able. 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 ABIs completed 07/16/17 showed moderate disease in the RLE and severe disease in the LLE. Vascular surgery consulted. Status post angiogram with right popliteal arthrectomy with angioplasty 07/17/[address] Bernard. Planning for possible LLE fem-pop at some point. Continue wound care per podiatry's recommendations. (6) Weakness generalized Current Visit: Yes Status: Acute (7) Elevated troponin Current Visit: Yes Status: Resolved Likely secondary to demand ischemia. Status post [facility] 07/23/17 - no intervention, medical management only. Management per the primary team. (8) Atherosclerosis of [place] arteries of right leg with ulceration of other part of foot Current Visit: Yes Status: Chronic CLIFF showed moderate disease. Vascular surgery consulted and following. Status post RLE popliteal arthrectomy with balloon angioplasty 07/17/[address] Bernard. (9) Atherosclerosis of [place] arteries of left leg with ulceration of other part of foot Current Visit: Yes Status: Chronic CLIFF showed severe LLE disease. Vascular surgery consulted and following. Per Vascular, will likely require further LLE intervention/surgery at a later date. (10) Pressure ulcer of left heel, unstageable Current Visit: Yes Status: Acute Likely multifactorial: pressure ulcer + arterial insufficiency. Patient refuses exam. Podiatry consulted and following. CT scan/XR negative for OM. ESR and CRP markedly elevated. MRI shows possible early OM vs. reactive osteitis. Status post I & D 07/25/[address] Roque. Intra-operative cultures grew Shewanella and MRSA. Operative note reviewed. No gross evidence of OM. Given the markedly elevated ESR and CRP, high index of suspicion for osteomyelitis. Continue wound care per podiatry. Continue antibiotics as above. (11) Anemia Current Visit: Yes Status: Chronic Etiology unclear. No acute bleeding noted on exam. Hemoglobin stable. Further workup and management per the primary team. Qualifiers: Anemia type: unspecified type Qualified Code(s): D64.9 - Anemia, unspecified (12) Diabetes Current Visit: Yes Status: Chronic Patient reports he has not been taking his diabetic medications for two years. HgbA1C 9%. Recommend aggressive glucose monitoring and control to promote wound healing and prevent re-infection. 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 Patient lying in bed states he doesn't feel well. No acute events noted overnight. States he is having a procedure to scrape his foot today. Complains of right groin pain that started when nursing staff was turning him. Denies fevers, chills, or rigors. Denies chest pain or shortness of breath, or cough. Denies nausea, vomiting, or abdominal pain. Denies diarrhea. Patient denies urinary symptoms. Denies foot pain at this time, but refuses to let me touch them for the assessment. Infect Dis PN-Objective Data - Labs CBC & Chem 7: 07/30/17 09:39 07/30/17 09:39 Labs: Laboratory Results - last 24 hr 07/29/17 07/29/17 07/29/17 11:23 16:56 20:21 WBC RBC Hgb Hct MCV MCH MCHC RDW Plt Count MPV Immature Gran % Seg Neutrophils % Lymphocytes % Monocytes % Eosinophils % Basophils % Neutrophils # Lymphocytes # Monocytes # Eosinophils # Basophils # Sodium Potassium Chloride Carbon Dioxide BUN Creatinine Est GFR ( Amer) Est GFR (Non-Af Amer) BUN/Creatinine Ratio Glucose POC Glucose 126 H 181 H 123 H Calculated Osmolality Calcium 07/30/17 07/30/17 07/30/17 07:54 09:39 09:39 WBC 16.8 H RBC 3.02 L Hgb 8.8 L Hct 28.3 L MCV 93.7 MCH 29.1 MCHC 31.1 L RDW 17.3 H Plt Count 269 MPV 10.7 Immature Gran % 0.7 Seg Neutrophils % 86.1 Lymphocytes % 5.5 Monocytes % 6.1 Eosinophils % 1.2 Basophils % 0.4 Neutrophils # 14.5 H Lymphocytes # 0.9 Monocytes # 1.0 Eosinophils # 0.2 Basophils # 0.1 Sodium 145 Potassium 3.4 L Chloride 104 Carbon Dioxide 35 H BUN 24 Creatinine 1.19 Est GFR ( Amer) > 60 Est GFR (Non-Af Amer) 60 BUN/Creatinine Ratio 20 Glucose 104 H POC Glucose 124 H Calculated Osmolality 304 H Calcium 8.4 L Cultures: Cultures 07/25/17 14:58 Anaerobic Culture - Final Left Foot No anaerobes were recovered. 07/25/17 14:58 Surgical Biopsy Culture - Final Left Foot Shewanella putrefaciens Methicillin Resistant S.aureus Berna lipolytica 07/18/17 16:31 Blood Culture - Final Peripheral Venipuncture No growth. 07/18/17 16:31 Blood Culture - Final Peripheral Venipuncture No growth. 07/16/17 16:55 Wound Culture - Final Left Foot Proteus mirabilis Klebsiella oxytoca Enterococcus faecalis Serology 07/16/17 Range/Units 12:45 Urine Color Yellow (Yellow) Urine Clarity Cloudy A (Clear) Urine pH 5.5 (5.0-8.0) pH Units Ur Specific [place] 1.030 H (1.010-1.025) Urine Protein >=300 H (Neg-Trace) mg/dL Urine Glucose (UA) 250 H (Normal) mg/dL Urine Ketones Negative (Negative) mg/dL Urine Blood Negative (Negative) Urine Nitrite Negative (Negative) Urine Bilirubin Small H (Negative) Urine Urobilinogen Normal (Normal) mg/dL Ur Leukocyte Esterase Negative (Negative) Urine Microscopic RBC 5-15 H (0-3) per hpf Urine Microscopic WBC 5-15 H (0-3) per hpf Ur Squamous Epith Cells Many H (None-Few) per lpf Urine Bacteria None Seen (None-Few) per hpf Hyaline Casts None Seen (None-Few) per lpf Ur Culture Indicated? NO (NO) Exam - Constitutional Vitals: Temp Pulse Resp BP Pulse Ox 97.6 F 70 24 138/77 94 07/30/17 11:25 07/30/17 11:25 07/30/17 11:25 07/30/17 11:25 07/30/17 11:25 General appearance: average body habitus, cooperative, no acute distress - Head Head exam: Present: atraumatic, normal inspection, normocephalic - Eye Eye exam: Present: EOMI, normal appearance, PERRL Pupils: Present: normal accommodation - ENT ENT exam: Present: mucous membranes moist - Neck Neck exam: Present: normal inspection - Respiratory Respiratory exam: Present: CTAB. Absent: rales, respiratory distress, rhonchi, wheezes - Cardiovascular Cardiovascular exam: Present: RRR, +S1, +S2 - GI/Abdominal GI/Abdominal exam: Present: normal bowel sounds, soft. Absent: distended, tenderness Additional comments: Right groin excoriation noted. Penis foreskin edema noted. - Extremities Exam Extremities exam: Present: pedal edema (Trace BLE), tenderness (Bilateral feet) Additional comments: Bilateral foot dressings intact. Patient refuses to let me remove them to assess his feet. - Neurological Exam Neurological exam: Present: alert, oriented X3, no focal deficits - Psychiatric Psychiatric exam: Present: normal affect, normal mood - Skin Skin exam: Present: dry, intact, normal color, warm Consult Discharge Plan - Plan Additional Instructions: RISK FACTORS: STOP SMOKING: If you smoke, STOP. Smoking or tobacco use significantly increases your risk of heart disease because nicotine causes the arteries to narrow or constrict. It also causes fats to stick to the artery. Your chances of having a heart attack are greatly increased if you continue to smoke. For more information, call the education line for smoking cessation 8-898-CRGGHRP EAT A LOW FAT/CHOLESTEROL/SODIUM DIET: This diet may help reduce your chances of having a heart attack. LIFTING: Avoid lifting anything more than 10 pounds for 5-7 days Prior to straining, laughing, sneezing and/or coughing, apply manual pressure directly over insertion site. ACTIVITY: You may walk or climb stairs as tolerated You can resume sexual activity as tolerated In general, you are encouraged to engage in a minimum of 30 minutes or more of moderate intensity physical activity, such as brisk walking, daily or at least 3 -4 times weekly BATHING Do not submerge the site into water (bath tub, hot tub, swimming pool) for 1 week. This can be a source for infection into the blood stream. You may shower after 24 hours SITE CARE: After 24 hours, you may remove the dressing and leave the site open to air. Keep the site clean and dry. Clean gently and pat dry. You can expect bruising and tenderness that gradually resolve within a week or two. Return to work as instructed per your physician Resume driving as instructed per physician Keep all scheduled follow up appointments Resume medications as instructed IMPORTANT: If prescribed a Platelet Aggregation Inhibitor such as, Plavix, Brilinta or Effient: Duration of therapy is minimum one year These medications are often used in combination with Aspirin in prevention of future heart attacks Never discontinue unless consult with your Tank Crewmember STROKE (CVA) Risk factors for a stroke are: Age, cigarette smoking, diabetes, excessive alcohol consumption, family history, high blood pressure, overweight, physical inactivity, prior stroke, heart attack, diagnosis of carotid artery stenosis or other artery disease. Warning signs: Sudden numbness or weakness of the face, arm or leg; especially on one side of the body, sudden confusion, trouble speaking or understanding, sudden trouble seeing in one or both eyes, sudden trouble walking, dizziness, loss of balance or coordination, sudden severe headache with no cause. Call 911 or go to the Emergency Room. CONGESTIVE HEART FAILURE: If you have been diagnosed with Congestive Heart Failure (CHF) and your symptoms return, make an appointment with your physician Weigh yourself daily. Notify your physician if you have a weight gain of two or more pounds in one day or five or more pounds in one week. If you experience any difficulty breathing, please call 911 BLEEDING: Although the risk of bleeding is minimal, it can happen. If you have any bleeding from the site, apply firm pressure above the puncture site for 10-15 minutes. If the bleeding does not stop, continue manual pressure and call 911 Contact your physician if: You develop a fever greater than 101 degrees Fahrenheit Your site becomes reddened or has any drainage You have an increase in pain or burning at the site or if a large knot forms at the site. If you experience chest pain, shortness of breath, dizziness, or extreme tiredness, stop the activity and rest. Please notify your physicians office if you experience any of these symptoms and they are not relieved by rest please call 911! Referrals: Magda Garcia CNP [Partnered Physician] - 07/30/17 10:35 am Jack Bernard MD [Partnered Physician] - 08/07/17 1:00 pm (1 WEEK AFTER DISCHARGE) - Attending Attestation I examined this patient and my medical decision-making was reviewed with the Resident Physician. I agree with the documented findings, disposition and treatment plan as described except to the extent set forth below.
[2017-07-30] MEDS ORDERED: Vancomycin 1,250 MG in D5% in Water 250 ML IVPB SCH (15:00)
[2017-07-30] MEDS: Potassium Chloride Elixir 20 MEQ/15 ML UDC PO SCH (15:30)
[2017-07-30] MEDS: Vancomycin 1,250 MG in D5% in Water 250 ML IVPB SCH (15:50)
[2017-07-30] MEDS: Insulin DETEMIR 100 UNIT/ML X5UNITS SQ SCH (20:31)
[2017-07-31] MEDS: Nystatin Cream 15 GM TUBE TP SCH ×3 (00:09→22:23)
[2017-07-31] MEDS: *HR* Morphine 2 MG/ML SYRINGE IVP PRN ×3 (00:32→11:38)
[2017-07-31] MEDS: Piperacillin/Tazobactam 3.375 GM in D5% in Water (Mini-Bag+) 100 ML IVPB SCH ×4 (00:33→22:16)
[2017-07-31] MEDS: *HR* Heparin 5,000 UNIT/ML VIAL SQ SCH ×3 (04:45→22:17)
[2017-07-31 05:56] LABS: Basophils # 0.1 K/mcL (0.0-0.2); Basophils % 0.5 %; Eosinophils # 0.2 K/mcL (0.0-0.6); Hematocrit 29.9 % (37.5-50.1); Immature Granulocytes % 0.6 % (0-4); Lymphocytes # 0.8 K/mcL (0.6-4.6); Mean Corpuscular HGB Conc 30.1 g/dL (31.6-35.5); Mean Corpuscular Hemoglobin 28.5 pg (28.0-33.3); Mean Corpuscular Volume 94.6 fL (83.0-100.0); Mean Platelet Volume 11.6 fL (9.4-12.4); Monocytes # 1.1 K/mcL (0.0-1.3); Monocytes % 7.2 %; Neutrophils # 13.3 K/mcL (1.6-8.9); Platelet Count 268 K/mcL (140-400); Red Blood Count 3.16 M/mcL (4.19-5.50); Red Cell Distribution Width 17.4 % (11.5-14.5); Segmented Neutrophils % 85.7 %
[2017-07-31 05:58] LABS: BUN/Creatinine Ratio 21 (6-26); Blood Urea Nitrogen 25 mg/dL (8-26); Calcium 8.5 mg/dL (8.6-10.8); Carbon Dioxide 35 mEq/L (19-29); Chloride 105 mEq/L (98-109); Glucose 144 mg/dL (70-99); Osmolality,Calculated 307 (280-300); Sodium 145 mEq/L (136-145); eGFR For African Americans > 60 (> 60); eGFR For Non-African Americans 58 (> 60)
[2017-07-31] MEDS: Insulin LISPRO 300 UNITS/3 ML VIAL SQ SCH ×7 (08:30→22:17)
[2017-07-31] MEDS: Multivit/Ca/Min/Fe/FA 1 TAB TABLET PO SCH (08:42)
[2017-07-31] MEDS: Magnesium Oxide 400 MG TABLET PO SCH (08:43)
[2017-07-31] MEDS: Aspirin 325 MG TABLET PO SCH (08:43)
[2017-07-31] MEDS: Sennosides/Docusate Sodium TABLET PO SCH ×2 (08:43→22:17)
[2017-07-31] MEDS: Potassium Chloride Elixir 20 MEQ/15 ML UDC PO SCH (08:43)
[2017-07-31] MEDS: Furosemide 40 MG TABLET PO SCH (08:43)
[2017-07-31] MEDS: *HR* OxyCODONE Immed Rel 5 MG TABLET PO PRN ×3 (08:43→23:07)
[2017-07-31] MEDS: Ascorbic Acid 500 MG TABLET PO SCH ×2 (08:43→22:17)
[2017-07-31] MEDS: Isosorbide MONOnitrate (24 HR) 30 MG TAB.ER.24H PO SCH (08:43)
[2017-07-31] MEDS: Zinc Sulfate 220 MG CAPSULE PO SCH (08:44)
--- NOTE | 2017-07-31 09:35 | Internal Med Progress Note ---
Date of Encounter: 07/31/17 Time of Encounter: 09:34 - Assessment and plan (1) Osteomyelitis Current Visit: Yes Status: Acute Assessment and plan: MRI showed possible Lt calcaneus OM Started on Vanco 07/30, blood cultures negative Wound culture noted PICC line insertion today PTOT eval for placement Infectious disease is following Qualifiers: Osteomyelitis type: other acute Osteomyelitis location: foot Laterality: left Qualified Code(s): M86.172 - Other acute osteomyelitis, left ankle and foot (2) Arterial leg ulcer Current Visit: Yes Status: Chronic Assessment and plan: Location: Bilateral feet and right lower leg. ABIs completed 07/16/17 showed moderate disease in the RLE and severe disease in the LLE. Vascular surgery is following, Status post angiogram with right popliteal arthrectomy with angioplasty 07/17/[address] Bernard[address] Per Vasculatr, no intervention on Lt foot due to active infection (3) CAD (coronary artery disease) Current Visit: Yes Status: Chronic Assessment and plan: Chronic, stable, continue current meds-ASA/BB/Lipitor/Isosorbide/Nitro No chest pain Qualifiers: Coronary Disease-Associated Artery/Lesion type: [place] artery [place] vs. 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 Patient does have 1+ pitting pedal edema bilaterally. Echo showed LVEF 35-40%, Moderate global and segmental left ventricular systolic dysfunction, Moderate pulmonary hypertension, Moderate-severe pulmonic regurgitation Continue Lasix/BB/ No ACEI/ARB due to YUMIKO on admission Renal function improved Added 2.5mg Lisinopril today I/O net positive, 2L, continue fluid restriction Qualifiers: Congestive heart failure type: systolic Congestive heart failure chronicity : acute on chronic Qualified Code(s): I50.23 - Acute on chronic systolic ( congestive) heart failure (5) DVT prophylaxis Current Visit: Yes Status: Acute Assessment and plan: Heparin SQ (6) Pressure ulcer of left heel, unstageable Current Visit: Yes Status: Acute Assessment and plan: -Podiatry following with incision drainage and debridement multiple areas left foot -Swab cultures of left heel wound with tissue cultures are growing multiple organisms -Repeat blood cultures negative -Patient with persistent leukocytosis but afebrile. Patient has received 15 days of Zosyn IV vancomycin Day 1 Associated OM of lt foot (7) Diabetes Current Visit: Yes Status: Chronic Assessment and plan: -Blood glucose controlled; continue current medical management 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 mellitus senior care insulin use: without senior care use Qualified Code( s): E11.621 - Type 2 diabetes mellitus with foot ulcer; L97.509 - Non-pressure chronic ulcer of other part of unspecified foot with unspecified severity; L97.509 - Non-pressure chronic ulcer of other part of unspecified foot with unspecified severity; L97.509 - Non-pressure chronic ulcer of other part of unspecified foot with unspecified severity; L97.509 - Non-pressure chronic ulcer of other part of unspecified foot with unspecified severity (8) HLD (hyperlipidemia) Current Visit: Yes Status: Chronic Assessment and plan: Continue Statin. Qualifiers: Hyperlipidemia type: unspecified Qualified Code(s): E78.5 - Hyperlipidemia , unspecified (9) HTN (hypertension) Current Visit: Yes Status: Chronic Assessment and plan: -Blood pressures controlled; continue current management.. Qualifiers: Hypertension type: essential hypertension Qualified Code(s): I10 - Essential (primary) hypertension (10) Acute kidney injury Current Visit: Yes Status: Resolved Assessment and plan: Stable, continue to monitor chem (11) Bacteremia Current Visit: Yes Status: Resolved Assessment and plan: -Bacteremia has resolved; suspect was contamination, and also possibly secondary to infected foot ulcers Blood cultures drawn 07/15/17 were positive 1/2 sets for anaerobic GNR. Most likely a contaminant given that only 1/2 sets is positive. Repeat blood cultures drawn 07/18/17 are negative x 2 sets. (12) Cellulitis Current Visit: Yes Status: Resolved Assessment and plan: Likely secondary to infected arterial ulcers. CT of the BLE negative for OM or abscess, but the patient's WBC continued to be elevated. MRI of the left foot shows findings consistent with early osteomyelitis vs. reactive osteitis. Given the markedly elevated inflammatory markers, concern for early osteomyelitis. Status post I & D of the left heel. Operative report reviewed. No evidence of osteomyelitis intra-op. Cultures were obtained and are growing Shewanella and MRSA. Zosyn day 15 vanco day 1 Qualifiers: Site of cellulitis: extremity Site of cellulitis of extremity: lower extremity Laterality: unspecified laterality Qualified Code(s): L03.119 - Cellulitis of unspecified part of limb (13) Sepsis Current Visit: Yes Status: Resolved Assessment and plan: -Sepsis has resolved and was suspected to be secondary to bacteremia which has also resolved due to left foot infection. Qualifiers: Sepsis type: sepsis due to unspecified organism Qualified Code(s): A41.9 - Sepsis, unspecified organism (14) Anemia Current Visit: Yes Status: Chronic Assessment and plan: -H&H stable -No acute bleeding reported at this time -Continue to monitor Qualifiers: Anemia type: unspecified type Qualified Code(s): D64.9 - Anemia, unspecified - Subjective Interval history: Patient seen and examined at bedside 77 M with sever vascular disease, admitted for sepsis with bacteremia, infected Lt foot ulcer, PAD with L femoral/tibial artery occlusion Vascular/ID is following Chart review revealed multiple organisms in wound culture including MSA/ Shewanellea/jake/proteus/klebsiella/Enterococcus, patient has been on Zosyn IV for 14 days, MRI showed early osteo vs osteitis, Patient has been started on Vancomycn for acute OM of Lt foot Denies new complains this morning Encouraged to co-operate with PTOT eval - Constitutional Vitals: Temp Pulse Resp BP Pulse Ox 97.7 F 70 20 165/86 90 07/31/17 07:24 07/31/17 09:00 07/31/17 07:24 07/31/17 07:24 07/31/17 07:24 General appearance: Present: cooperative, A&O X 3, pleasant, no acute distress, answers questions appropriately - Head Head exam: Present: atraumatic, normocephalic - Eye Eye exam: Present: PERRL, conjuntiva pink, sclera anicteric Pupils: Present: PERRL - Neck Neck exam general surgery: Present: supple, trachea midline. Absent: lymphadenopathy - Respiratory Respiratory exam: Present: CTAB. Absent: accessory muscle use, rales, rhonchi, wheezes - Cardiovascular Cardiovascular exam: Present: RRR, +S1, +S2. Absent: diastolic murmur, gallop, rubs, systolic murmur - GI/Abdominal GI/Abdominal exam: Present: normal bowel sounds, soft, no peritoneal signs. Absent: distended, tenderness - Extremities Exam Additional comments: Bilateral piting pedal edema (trace), chronic foot ulcer with clean wound dressing, warm extremities - Neurological Exam Neurological exam: Present: alert, CN II-XII intact, oriented X3, no focal deficits. Absent: pronater drift, facial droop, speech deficit - Skin Skin exam: Present: dry, intact Internal Medicine: Result - Labs CBC & Chem 7: 07/31/17 04:53 07/31/17 04:53 Labs: Short CBC 07/30/17 07/31/17 Range/Units 09:39 04:53 WBC 16.8 H 15.6 H (4.3-11.1) K/mcL Hgb 8.8 L 9.0 L (12.9-16.9) g/dL Hct 28.3 L 29.9 L (37.5-50.1) % Plt Count 269 268 (140-400) K/mcL Neutrophils # 14.5 H 13.3 H (1.6-8.9) K/mcL BMP 07/30/17 07/31/17 09:39 04:53 Sodium 145 145 Potassium 3.4 L 4.0 Chloride 104 105 Carbon Dioxide 35 H 35 H BUN 24 25 Creatinine 1.19 1.21 Glucose 104 H 144 H Calcium 8.4 L 8.5 L - ABG Interpretation ABG results: PT/INR, D-dimer PT 12.5 Seconds (9.4-12.1) H 07/16/17 01:45 Consult Discharge Plan - Plan Additional Instructions: RISK FACTORS: STOP SMOKING: If you smoke, STOP. Smoking or tobacco use significantly increases your risk of heart disease because nicotine causes the arteries to narrow or constrict. It also causes fats to stick to the artery. Your chances of having a heart attack are greatly increased if you continue to smoke. For more information, call the education line for smoking cessation 1-469-MUPSYAE EAT A LOW FAT/CHOLESTEROL/SODIUM DIET: This diet may help reduce your chances of having a heart attack. LIFTING: Avoid lifting anything more than 10 pounds for 5-7 days Prior to straining, laughing, sneezing and/or coughing, apply manual pressure directly over insertion site. ACTIVITY: You may walk or climb stairs as tolerated You can resume sexual activity as tolerated In general, you are encouraged to engage in a minimum of 30 minutes or more of moderate intensity physical activity, such as brisk walking, daily or at least 3 -4 times weekly BATHING Do not submerge the site into water (bath tub, hot tub, swimming pool) for 1 week. This can be a source for infection into the blood stream. You may shower after 24 hours SITE CARE: After 24 hours, you may remove the dressing and leave the site open to air. Keep the site clean and dry. Clean gently and pat dry. You can expect bruising and tenderness that gradually resolve within a week or two. Return to work as instructed per your physician Resume driving as instructed per physician Keep all scheduled follow up appointments Resume medications as instructed IMPORTANT: If prescribed a Platelet Aggregation Inhibitor such as, Plavix, Brilinta or Effient: Duration of therapy is minimum one year These medications are often used in combination with Aspirin in prevention of future heart attacks Never discontinue unless consult with your Activities Officer STROKE (CVA) Risk factors for a stroke are: Age, cigarette smoking, diabetes, excessive alcohol consumption, family history, high blood pressure, overweight, physical inactivity, prior stroke, heart attack, diagnosis of carotid artery stenosis or other artery disease. Warning signs: Sudden numbness or weakness of the face, arm or leg; especially on one side of the body, sudden confusion, trouble speaking or understanding, sudden trouble seeing in one or both eyes, sudden trouble walking, dizziness, loss of balance or coordination, sudden severe headache with no cause. Call 911 or go to the Emergency Room. CONGESTIVE HEART FAILURE: If you have been diagnosed with Congestive Heart Failure (CHF) and your symptoms return, make an appointment with your physician Weigh yourself daily. Notify your physician if you have a weight gain of two or more pounds in one day or five or more pounds in one week. If you experience any difficulty breathing, please call 911 BLEEDING: Although the risk of bleeding is minimal, it can happen. If you have any bleeding from the site, apply firm pressure above the puncture site for 10-15 minutes. If the bleeding does not stop, continue manual pressure and call 911 Contact your physician if: You develop a fever greater than 101 degrees Fahrenheit Your site becomes reddened or has any drainage You have an increase in pain or burning at the site or if a large knot forms at the site. If you experience chest pain, shortness of breath, dizziness, or extreme tiredness, stop the activity and rest. Please notify your physicians office if you experience any of these symptoms and they are not relieved by rest please call 911! Referrals: Magda Garcia CNP [Partnered Physician] - 07/30/17 10:35 am Jack Bernard MD [Partnered Physician] - 08/07/17 1:00 pm (1 WEEK AFTER DISCHARGE)
[2017-07-31] MEDS ORDERED: Lidocaine -MPF 1% 5 ML AMPUL INFILT ONE (09:45)
[2017-07-31] MEDS ORDERED: Lidocaine -MPF 1% 2 ML VIAL INFILT ONE (10:30)
--- NOTE | 2017-07-31 13:09 | Infectious Disease Progress No ---
Date of Encounter: 07/31/17 Time of Encounter: 13:07 - Assessment and Plan (1) Sepsis Current Visit: Yes Status: Resolved The patient had two SIRS criteria on admission. Likely secondary to infected arterial ulcers/cellulitis and possible OM of the left foot. Improved. Tachycardia has resolved. WBC elevated, but stable. Blood cultures drawn 07/15/17 are positive 1/2 sets for anaerobic GNR. Repeat blood cultures drawn 07/18/17 are negative x 2 sets. Qualifiers: Sepsis type: sepsis due to unspecified organism Qualified Code(s): A41.9 - Sepsis, unspecified organism (2) Bacteremia Current Visit: Yes Status: Resolved Causative organism anaerobic GNR. Blood cultures drawn 07/15/17 are positive 1/2 sets for anaerobic GNR. Most likely a contaminant given that only 1/2 sets is positive. Repeat blood cultures drawn 07/18/17 are negative x 2 sets. (3) Cellulitis Current Visit: Yes Status: Resolved Location: BLE per the medical record. Appears improved as there are no signs of cellulitis at this time. Previous wound culture grew out P. mirabilis, K. oxytoca, and E. faecalis. Likely secondary to infected arterial ulcers. CT of the BLE negative for OM or abscess, but the patient's WBC continued to be elevated. Podiatry consulted and following. Continue wound care per their recommendations. ESR >130. CRP 78. MRI of the left foot shows findings consistent with early osteomyelitis vs. reactive osteitis. Given the markedly elevated inflammatory markers, concern for early osteomyelitis. Status post I & D of the left heel. Operative report reviewed. No evidence of osteomyelitis intra-op, but debridment was only taken down to the fascia. Cultures were obtained and are growing Shewanella and MRSA. Given the markedly elevated inflammatory markers, high index of suspicion that there is osteomyelitis. The patient would likely benefit from 4-6 weeks of IV antibiotics. Continue Zosyn 3.375 grams IV Q8H. Continue Vancomycin IV. Pharmacy to dose. Goal trough 10-15. Duration of treatment depends on the clinical picture, but likely 4-6 weeks of IV antibiotics. Monitor renal function and dose-adjust antibiotics. Get weekly CBC, BUN/Cr, ESR, and CRP every Saturday for the duration of treatment. Weekly PICC care per protocol. Follow up with ID 2 weeks post-discharge. Qualifiers: Site of cellulitis: extremity Site of cellulitis of extremity: lower extremity Laterality: unspecified laterality Qualified Code(s): L03.119 - Cellulitis of unspecified part of limb (4) Acute kidney injury Current Visit: Yes Status: Resolved Likely LUCY. Resolved. Continue to trend. Dose-adjust antibiotics. Avoid nephrotoxins as able. 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 ABIs completed 07/16/17 showed moderate disease in the RLE and severe disease in the LLE. Vascular surgery consulted. Status post angiogram with right popliteal arthrectomy with angioplasty 07/17/[address] Bernard. LLE intervention on hold at this point. Continue wound care per podiatry's recommendations. (6) Weakness generalized Current Visit: Yes Status: Acute Improved. Encouraged patient to participate in PT/OT sessions. (7) Elevated troponin Current Visit: Yes Status: Resolved Likely secondary to demand ischemia. Status post [facility] 07/23/17 - no intervention, medical management only. Management per the primary team. (8) Atherosclerosis of [place] arteries of right leg with ulceration of other part of foot Current Visit: Yes Status: Chronic CLIFF showed moderate disease. Vascular surgery consulted and following. Status post RLE popliteal arthrectomy with balloon angioplasty 07/17/[address] Bernard. (9) Atherosclerosis of [place] arteries of left leg with ulceration of other part of foot Current Visit: Yes Status: Chronic CLIFF showed severe LLE disease. Vascular surgery consulted and following. Per Vascular, will likely require further LLE intervention/surgery at a later date, but on hold for now. (10) Pressure ulcer of left heel, unstageable Current Visit: Yes Status: Acute Likely multifactorial: pressure ulcer + arterial insufficiency. Podiatry consulted and following. CT scan/XR negative for OM. ESR and CRP markedly elevated. MRI shows possible early OM vs. reactive osteitis. Status post I & D 07/25/[address] Roque. Intra-operative cultures grew Shewanella and MRSA. Operative note reviewed. No gross evidence of OM, but debridement only down to fascia. Discussed with ARPITA Tinajero. Given the markedly elevated ESR and CRP, high index of suspicion for osteomyelitis. Continue wound care per podiatry. Continue antibiotics as above. (11) Anemia Current Visit: Yes Status: Chronic Etiology unclear. No acute bleeding noted on exam. Hemoglobin stable. Further workup and management per the primary team. Qualifiers: Anemia type: unspecified type Qualified Code(s): D64.9 - Anemia, unspecified (12) Diabetes Current Visit: Yes Status: Chronic Patient reports he has not been taking his diabetic medications for two years. HgbA1C 9%. Recommend aggressive glucose monitoring and control to promote wound healing and prevent re-infection. 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 Etiology unclear. The patient states it is mild and started after he ate a little breakfast this morning. Denies nausea and vomiting. Consider checking amylase and lipase if not improved. Will defer further workup to the primary team. Qualifiers: Abdominal location: upper abdomen, unspecified Qualified Code(s): R10.10 - Upper abdominal pain, unspecified - Subjective Interval history: Patient seen and examined. Patient lying in bed states he feels okay today. No acute events noted overnight. Complains of upper abdominal pain, but denies nausea or vomiting. States he doesn't have much of an appetite today. Denies fevers, chills, or rigors. Denies chest pain or shortness of breath, or cough. Denies diarrhea. Patient denies urinary symptoms. Denies foot pain at this time. Bilateral foot dressing removed with podiatry SPECIMEN BOSS. Infect Dis PN-Objective Data - Labs CBC & Chem 7: 07/31/17 04:53 07/31/17 04:53 Labs: Laboratory Results - last 24 hr 07/30/17 07/30/17 07/30/17 11:46 16:08 19:27 WBC RBC Hgb Hct MCV MCH MCHC RDW Plt Count MPV Immature Gran % Seg Neutrophils % Lymphocytes % Monocytes % Eosinophils % Basophils % Neutrophils # Lymphocytes # Monocytes # Eosinophils # Basophils # Sodium Potassium Chloride Carbon Dioxide BUN Creatinine Est GFR ( Amer) Est GFR (Non-Af Amer) BUN/Creatinine Ratio Glucose POC Glucose 114 H 209 H 139 H Calculated Osmolality Calcium 07/31/17 07/31/17 07/31/17 04:53 04:53 07:22 WBC 15.6 H RBC 3.16 L Hgb 9.0 L Hct 29.9 L MCV 94.6 MCH 28.5 MCHC 30.1 L RDW 17.4 H Plt Count 268 MPV 11.6 Immature Gran % 0.6 Seg Neutrophils % 85.7 Lymphocytes % 5.0 Monocytes % 7.2 Eosinophils % 1.0 Basophils % 0.5 Neutrophils # 13.3 H Lymphocytes # 0.8 Monocytes # 1.1 Eosinophils # 0.2 Basophils # 0.1 Sodium 145 Potassium 4.0 Chloride 105 Carbon Dioxide 35 H BUN 25 Creatinine 1.21 Est GFR ( Amer) > 60 Est GFR (Non-Af Amer) 58 L BUN/Creatinine Ratio 21 Glucose 144 H POC Glucose 133 H Calculated Osmolality 307 H Calcium 8.5 L Cultures: Cultures 07/25/17 14:58 Anaerobic Culture - Final Left Foot No anaerobes were recovered. 07/25/17 14:58 Surgical Biopsy Culture - Final Left Foot Shewanella putrefaciens Methicillin Resistant S.aureus Berna lipolytica 07/18/17 16:31 Blood Culture - Final Peripheral Venipuncture No growth. 07/18/17 16:31 Blood Culture - Final Peripheral Venipuncture No growth. 07/16/17 16:55 Wound Culture - Final Left Foot Proteus mirabilis Klebsiella oxytoca Enterococcus faecalis Serology 07/16/17 Range/Units 12:45 Urine Color Yellow (Yellow) Urine Clarity Cloudy A (Clear) Urine pH 5.5 (5.0-8.0) pH Units Ur Specific [place] 1.030 H (1.010-1.025) Urine Protein >=300 H (Neg-Trace) mg/dL Urine Glucose (UA) 250 H (Normal) mg/dL Urine Ketones Negative (Negative) mg/dL Urine Blood Negative (Negative) Urine Nitrite Negative (Negative) Urine Bilirubin Small H (Negative) Urine Urobilinogen Normal (Normal) mg/dL Ur Leukocyte Esterase Negative (Negative) Urine Microscopic RBC 5-15 H (0-3) per hpf Urine Microscopic WBC 5-15 H (0-3) per hpf Ur Squamous Epith Cells Many H (None-Few) per lpf Urine Bacteria None Seen (None-Few) per hpf Hyaline Casts None Seen (None-Few) per lpf Ur Culture Indicated? NO (NO) Exam - Constitutional Vitals: Temp Pulse Resp BP Pulse Ox 97.6 F 83 16 138/88 99 07/31/17 11:27 07/31/17 11:35 07/31/17 11:27 07/31/17 11:27 07/31/17 11:27 General appearance: average body habitus, cooperative, no acute distress - Head Head exam: Present: atraumatic, normal inspection, normocephalic - Eye Eye exam: Present: EOMI, normal appearance, PERRL Pupils: Present: normal accommodation - ENT ENT exam: Present: mucous membranes moist - Neck Neck exam: Present: normal inspection - Respiratory Respiratory exam: Present: CTAB. Absent: rales, respiratory distress, rhonchi, wheezes - Cardiovascular Cardiovascular exam: Present: RRR, +S1, +S2 - GI/Abdominal GI/Abdominal exam: Present: normal bowel sounds, soft. Absent: distended, tenderness - Extremities Exam Additional comments: Bilateral foot dressings removed. Multiple superficial ulcers noted to the dorsal aspects of bilateral feet. Stage IV ulcer noted to the left heel with wound bed 100% slough. No erythema, drainage, or foul odor noted. Arterial ulcer noted to the medial aspect of the RLE with moist yellow wound bed and no surrounding erythema. - Neurological Exam Neurological exam: Present: alert, oriented X3, no focal deficits - Psychiatric Psychiatric exam: Present: normal affect, normal mood Additional comments: Patient pleasant, cooperative, and conversive today. - Skin Skin exam: Present: dry, intact, normal color, warm Consult Discharge Plan - Plan Additional Instructions: RISK FACTORS: STOP SMOKING: If you smoke, STOP. Smoking or tobacco use significantly increases your risk of heart disease because nicotine causes the arteries to narrow or constrict. It also causes fats to stick to the artery. Your chances of having a heart attack are greatly increased if you continue to smoke. For more information, call the education line for smoking cessation 6-559-LQQCRIC EAT A LOW FAT/CHOLESTEROL/SODIUM DIET: This diet may help reduce your chances of having a heart attack. LIFTING: Avoid lifting anything more than 10 pounds for 5-7 days Prior to straining, laughing, sneezing and/or coughing, apply manual pressure directly over insertion site. ACTIVITY: You may walk or climb stairs as tolerated You can resume sexual activity as tolerated In general, you are encouraged to engage in a minimum of 30 minutes or more of moderate intensity physical activity, such as brisk walking, daily or at least 3 -4 times weekly BATHING Do not submerge the site into water (bath tub, hot tub, swimming pool) for 1 week. This can be a source for infection into the blood stream. You may shower after 24 hours SITE CARE: After 24 hours, you may remove the dressing and leave the site open to air. Keep the site clean and dry. Clean gently and pat dry. You can expect bruising and tenderness that gradually resolve within a week or two. Return to work as instructed per your physician Resume driving as instructed per physician Keep all scheduled follow up appointments Resume medications as instructed IMPORTANT: If prescribed a Platelet Aggregation Inhibitor such as, Plavix, Brilinta or Effient: Duration of therapy is minimum one year These medications are often used in combination with Aspirin in prevention of future heart attacks Never discontinue unless consult with your Counterintelligence Analyst STROKE (CVA) Risk factors for a stroke are: Age, cigarette smoking, diabetes, excessive alcohol consumption, family history, high blood pressure, overweight, physical inactivity, prior stroke, heart attack, diagnosis of carotid artery stenosis or other artery disease. Warning signs: Sudden numbness or weakness of the face, arm or leg; especially on one side of the body, sudden confusion, trouble speaking or understanding, sudden trouble seeing in one or both eyes, sudden trouble walking, dizziness, loss of balance or coordination, sudden severe headache with no cause. Call 911 or go to the Emergency Room. CONGESTIVE HEART FAILURE: If you have been diagnosed with Congestive Heart Failure (CHF) and your symptoms return, make an appointment with your physician Weigh yourself daily. Notify your physician if you have a weight gain of two or more pounds in one day or five or more pounds in one week. If you experience any difficulty breathing, please call 911 BLEEDING: Although the risk of bleeding is minimal, it can happen. If you have any bleeding from the site, apply firm pressure above the puncture site for 10-15 minutes. If the bleeding does not stop, continue manual pressure and call 911 Contact your physician if: You develop a fever greater than 101 degrees Fahrenheit Your site becomes reddened or has any drainage You have an increase in pain or burning at the site or if a large knot forms at the site. If you experience chest pain, shortness of breath, dizziness, or extreme tiredness, stop the activity and rest. Please notify your physicians office if you experience any of these symptoms and they are not relieved by rest please call 911! Referrals: Magda Garcia CNP [Partnered Physician] - 07/30/17 10:35 am Jack Bernard MD [Partnered Physician] - 08/07/17 1:00 pm (1 WEEK AFTER DISCHARGE) - Attending Attestation I examined this patient and my medical decision-making was reviewed with the Resident Physician. I agree with the documented findings, disposition and treatment plan as described except to the extent set forth below.
[2017-07-31] MEDS: Vancomycin 1,250 MG in D5% in Water 250 ML IVPB SCH (15:17)
--- NOTE | 2017-07-31 17:01 | Podiatry Progress Note ---
Date of Encounter: 08/01/17 Time of Encounter: 12:00 - Assessment and Plan (1) Cellulitis Current Visit: Yes Status: Resolved Assessment: Cellulitis of BLE BLE ulcerations: arterial ulcerations of BLE and full thickness ulcer of left heel s/p debridement 07/25 resolution of cellulitis is noted. Heel wound was surgically debrided -cultures intra op positive for shewanella and MRSA- ID recommendation to continue vanc and zosyn and 4-6 weeks of therapy- PICC insertion for sales branch manager therapy There was concern of early osteomyelitis noted to MRI Will reorder plain films today to reassess bone spoke with after return of xray- discussed MRI results and xray results - ok with plan for aggressive IV antibiotic therapy at this time and will follow patient closely in wound care clinic outpatient Qualifiers: Site of cellulitis: extremity Site of cellulitis of extremity: lower extremity Laterality: unspecified laterality Qualified Code(s): L03.119 - Cellulitis of unspecified part of limb (2) Diabetic ulcer of both feet Current Visit: Yes Status: Chronic Ulcerations have noted improvement with application of santyl and surgical debridement There is healthy granulation tissue noted to wounds of bilateral feet Please continue dressing changes with application of santyl to wounds- dry dressing covering All devitalized tissue was removed at bedside using tissue nipper- tolerated well- no complications Patient will need home health for dressing changes and will need to follow up in wound care clinic with (3) Diabetes Current Visit: Yes Status: Chronic Patients glucose readings continue to be in mid 200 range- strict glucose control to promote healing and prevent further complication Consult diabetic education 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 mellitus sales branch manager insulin use: without care home use Qualified Code( s): E11.621 - Type 2 diabetes mellitus with foot ulcer; L97.509 - Non-pressure chronic ulcer of other part of unspecified foot with unspecified severity; L97.509 - Non-pressure chronic ulcer of other part of unspecified foot with unspecified severity; L97.509 - Non-pressure chronic ulcer of other part of unspecified foot with unspecified severity; L97.509 - Non-pressure chronic ulcer of other part of unspecified foot with unspecified severity (4) Pressure ulcer of left heel, unstageable Current Visit: Yes Status: Acute Assessment: pressure ulceration of lateral/left heel Full thickness- s/p debridement Plan: will reorder plain films to reassess left heel for osteomyelitis Will need IV antibiotic therapy per ID Continue application of santyl to wound bed for debridement purposes, wound bed appears improved. Continue to offload Foot MRI 07/22/17 12:54 IMPRESSION: 1. Posterior soft tissue ulceration. Adjacent and circumferential ankle subcutaneous edema compatible with cellulitis. No drainable fluid collection. 2. Mild focal bone marrow edema in the far posterolateral calcaneus with reticular T1 signal compatible with early osteomyelitis versus noninfectious reactive osteitis. D/ / Christofer Neely MD / Christofer Neely MD Interpreting Provider: Christofer Neely MD Foot X-Ray 07/31/17 13:25 IMPRESSION: Redemonstration of a posterior heel soft tissue ulceration without radiographic evidence of osteomyelitis. D/ / Christofer Neely MD / Christofer Neely MD Interpreting Provider: Christofer Neely MD Subjective Principal diagnosis: Decreased EF Interval history: Patient s/p I&D of left heel wound and debridement of wounds of lateral and dorsal left foot per on 07.24.17. patient resting comfortably on arrival with dressings intact. States he is not having much pain at this time but has pain with any touch. Patient denies any fevers, chills, n/v or flu like symptoms. Patient continues to have elevated WBC however vital signs are stable and patient is afebrile >24 hours Objective - Vital Signs Vital Signs: Vital Signs Temp Pulse Resp BP Pulse Ox 07/31/17 16:09 97.6 F 74 18 141/90 99 07/31/17 15:40 71 07/31/17 11:35 83 07/31/17 11:27 97.6 F 73 16 138/88 99 07/31/17 09:00 70 07/31/17 07:24 97.7 F 76 20 165/86 90 07/31/17 04:00 98 F 79 18 153/88 92 07/30/17 22:47 97.9 F 77 18 159/92 96 07/30/17 19:24 97.8 F 76 18 147/82 94 Intake and Output 07/31/17 07/31/17 07/31/17 07:59 15:59 23:59 Intake Total 460 / 460 100 / 100 Output Total 600 / 600 Balance -140 / -140 100 / 100 Intake: IV Fluids 100 / 100 100 / 100 Zosyn 3.375 GM In Dextrose 5% ( 100 / 100 100 / 100 Minibag+) 100 ML 100 ML @ 25 mls/hr IVPB Q8H DAV Rx#: [id number] Oral 360 / 360 Output: Urine 600 / 600 Other: Meal Lunch Percent of Meal Consumed 50% Weight 85.3 kg Blood Glucose* 133 186 115 Patient Weight 07/31/17 23:59 Weight 85.3 kg - Exam Exam: Awake, alert and oriented x3. Pulses per signal confirmed at bedside, DP/PT Cap refill <3 seconds No calf pain with manual compression Edema 0+/4 Dressing removed- Left heel ulceration- [id number] with healthy granulation tissue noted to wound bed. 10-15% fibrous slough. no drainage. No periwound edema or erythema. No odor. Debrided wounds of lateral and dorsal left foot appear to be superficial and healing without issue. No drainage. minimal periwound erythema Dorsal right foot wounds and medial aspect of right calf- arterial ulcerations- responding well to santyl therapy- almost all fibrous tissue has lifted and all remaining devitalized tissue was removed at bedside without issue. Wounds are superficial, healing without issue- minimal periwound edema or erythema- healthy granulation tissue to wound beds. - Lab Result Diagrams: 08/01/17 03:45 08/01/17 03:45 Labs: Abnormal lab results WBC 15.6 K/mcL (4.3-11.1) H 07/31/17 04:53 RBC 3.16 M/mcL (4.19-5.50) L 07/31/17 04:53 Hgb 9.0 g/dL (12.9-16.9) L 07/31/17 04:53 Hct 29.9 % (37.5-50.1) L 07/31/17 04:53 MCHC 30.1 g/dL (31.6-35.5) L 07/31/17 04:53 RDW 17.4 % (11.5-14.5) H 07/31/17 04:53 Neutrophils # 13.3 K/mcL (1.6-8.9) H 07/31/17 04:53 Polychromasia 1+ (Not Present) A 07/25/17 08:10 Anisocytosis 1+ (Not Present) A 07/25/17 08:10 ESR >= 130 mm/hr (0-10) H 07/22/17 03:46 PT 12.5 Seconds (9.4-12.1) H 07/16/17 01:45 Carbon Dioxide 35 mEq/L (19-29) H 07/31/17 04:53 Est GFR (Non-Af Amer) 58 (> 60) L 07/31/17 04:53 Glucose 144 mg/dL (70-99) H 07/31/17 04:53 POC Glucose 133 (58-89) H 07/31/17 07:22 Hemoglobin A1c 9.3 % (-5.6) H 07/15/17 13:30 Calculated Osmolality 307 (280-300) H 07/31/17 04:53 Calcium 8.5 mg/dL (8.6-10.8) L 07/31/17 04:53 Ionized Calcium 1.14 mmol/L (1.15-1.35) L 07/23/17 13:01 Magnesium 1.5 mg/dL (1.6-2.6) L 07/23/17 13:01 Iron 21 mcg/dL (65-175) L 07/17/17 03:40 % Saturation 10 % (20-55) L 07/17/17 03:40 Transferrin 143 mg/dL (174-364) L 07/17/17 03:40 Ferritin 331 ng/ml (22-275) H 07/17/17 03:40 Alkaline Phosphatase 158 Units/L (38-126) H 07/19/17 03:07 C-Reactive Protein 78 mg/L (Less than 5) H 07/22/17 00:35 Albumin 2.2 g/dL (3.5-5.0) L 07/19/17 03:07 Globulin 4.3 g/dL (2.4-3.5) H 07/19/17 03:07 Albumin/Globulin Ratio 0.5 (1.1-2.2) L 07/19/17 03:07 HDL Cholesterol 33 mg/dL (40-59) L 07/16/17 01:45 Urine Clarity Cloudy (Clear) A 07/16/17 12:45 Ur Specific [place] 1.030 (1.010-1.025) H 07/16/17 12:45 Urine Protein >=300 mg/dL (Neg-Trace) H 07/16/17 12:45 Urine Glucose (UA) 250 mg/dL (Normal) H 07/16/17 12:45 Urine Bilirubin Small (Negative) H 07/16/17 12:45 Urine Microscopic RBC 5-15 per hpf (0-3) H 07/16/17 12:45 Urine Microscopic WBC 5-15 per hpf (0-3) H 07/16/17 12:45 Ur Squamous Epith Cells Many per lpf (None-Few) H 07/16/17 12:45 Microbiology, Last 48 Hours 07/25/17 14:58 Anaerobic Culture - Final Left Foot No anaerobes were recovered. 07/25/17 14:58 Surgical Biopsy Culture - Final Left Foot Shewanella putrefaciens Methicillin Resistant S.aureus Berna lipolytica Consult Discharge Plan - Plan Additional Instructions: RISK FACTORS: STOP SMOKING: If you smoke, STOP. Smoking or tobacco use significantly increases your risk of heart disease because nicotine causes the arteries to narrow or constrict. It also causes fats to stick to the artery. Your chances of having a heart attack are greatly increased if you continue to smoke. For more information, call the education line for smoking cessation 3-008-BUFRXHS EAT A LOW FAT/CHOLESTEROL/SODIUM DIET: This diet may help reduce your chances of having a heart attack. LIFTING: Avoid lifting anything more than 10 pounds for 5-7 days Prior to straining, laughing, sneezing and/or coughing, apply manual pressure directly over insertion site. ACTIVITY: You may walk or climb stairs as tolerated You can resume sexual activity as tolerated In general, you are encouraged to engage in a minimum of 30 minutes or more of moderate intensity physical activity, such as brisk walking, daily or at least 3 -4 times weekly BATHING Do not submerge the site into water (bath tub, hot tub, swimming pool) for 1 week. This can be a source for infection into the blood stream. You may shower after 24 hours SITE CARE: After 24 hours, you may remove the dressing and leave the site open to air. Keep the site clean and dry. Clean gently and pat dry. You can expect bruising and tenderness that gradually resolve within a week or two. Return to work as instructed per your physician Resume driving as instructed per physician Keep all scheduled follow up appointments Resume medications as instructed IMPORTANT: If prescribed a Platelet Aggregation Inhibitor such as, Plavix, Brilinta or Effient: Duration of therapy is minimum one year These medications are often used in combination with Aspirin in prevention of future heart attacks Never discontinue unless consult with your Motorcycle Delivery Driver STROKE (CVA) Risk factors for a stroke are: Age, cigarette smoking, diabetes, excessive alcohol consumption, family history, high blood pressure, overweight, physical inactivity, prior stroke, heart attack, diagnosis of carotid artery stenosis or other artery disease. Warning signs: Sudden numbness or weakness of the face, arm or leg; especially on one side of the body, sudden confusion, trouble speaking or understanding, sudden trouble seeing in one or both eyes, sudden trouble walking, dizziness, loss of balance or coordination, sudden severe headache with no cause. Call 911 or go to the Emergency Room. CONGESTIVE HEART FAILURE: If you have been diagnosed with Congestive Heart Failure (CHF) and your symptoms return, make an appointment with your physician Weigh yourself daily. Notify your physician if you have a weight gain of two or more pounds in one day or five or more pounds in one week. If you experience any difficulty breathing, please call 911 BLEEDING: Although the risk of bleeding is minimal, it can happen. If you have any bleeding from the site, apply firm pressure above the puncture site for 10-15 minutes. If the bleeding does not stop, continue manual pressure and call 911 Contact your physician if: You develop a fever greater than 101 degrees Fahrenheit Your site becomes reddened or has any drainage You have an increase in pain or burning at the site or if a large knot forms at the site. If you experience chest pain, shortness of breath, dizziness, or extreme tiredness, stop the activity and rest. Please notify your physicians office if you experience any of these symptoms and they are not relieved by rest please call 911! Referrals: Magda Garcia CNP [Partnered Physician] - 07/30/17 10:35 am Jack Bernard MD [Partnered Physician] - 08/07/17 1:00 pm (1 WEEK AFTER DISCHARGE)
--- NOTE | 2017-07-31 20:04 | Vascular/[facility] Progress Note ---
Date of Encounter: 07/31/17 Time of Encounter: 14:15 - Assessment and plan (1) Atherosclerosis of [place] arteries of right leg with ulceration of other part of foot Current Visit: Yes Status: Chronic The patient has peripheral vascular disease with ulceration. He underwent a right popliteal atherectomy and angioplasty. His right foot is warm and has polyphasic dorsalis pedis artery signals. His right foot wounds appear to be slowly healing. 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 His left pedal signals are diminished due to a left superficial femoral artery occlusion. He also has a left posterior tibial and peroneal artery occlusion. He has no evidence of acute limb ischemia. He has chronic peripheral vascular disease with ulceration. At this time, he has multiple infectious disease issues including a fungal rash in the right groin and multiple positive left foot cultures including MRSA and Shewanella species. He will need a prolonged course of antibiotics prior to open revascularization. His white blood cell count is decreasing, but remains elevated. At this time, continue with antibiotics, ASA and Plavix. Dr. Parada will be covering this patient until next week. Please contact him if acute issues develop. (2) Atherosclerosis of [place] arteries of left leg with ulceration of other part of foot Current Visit: Yes Status: Chronic (3) Diabetes Current Visit: Yes Status: Chronic 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 mellitus long term care pharmacist insulin use: without penitentiary use Qualified Code( s): E11.621 - Type 2 diabetes mellitus with foot ulcer; L97.509 - Non-pressure chronic ulcer of other part of unspecified foot with unspecified severity; L97.509 - Non-pressure chronic ulcer of other part of unspecified foot with unspecified severity; L97.509 - Non-pressure chronic ulcer of other part of unspecified foot with unspecified severity; L97.509 - Non-pressure chronic ulcer of other part of unspecified foot with unspecified severity (4) HTN (hypertension) Current Visit: Yes Status: Chronic Qualifiers: Hypertension type: essential hypertension Qualified Code(s): I10 - Essential (primary) hypertension (5) HLD (hyperlipidemia) Current Visit: Yes Status: Chronic Qualifiers: Hyperlipidemia type: unspecified Qualified Code(s): E78.5 - Hyperlipidemia , unspecified - Subjective Interval history: The patient reports that his pain is well controlled today. He is without complaints. He is out of bed today. He denies chest pain or shortness of breath. Vital Signs, Last 4 Hours Temp Pulse Resp BP Pulse Ox 07/31/17 18:58 97.6 F 77 16 159/78 97 07/31/17 16:09 97.6 F 74 18 141/90 99 - Physical Examination General: Present: Conversant HEENT: Present: Pupils equal Cardiac: Present: Reg Rate and Rhythm Lungs: Present: Normal Breath Sounds Neuro: Present: Alert and responsive, Motor nerves grossly intact, Sensory nerves grossly intact Vascular: Present: Normal capillary refill, Pulse, absent (left popliteal and pedal pulses), Pulse, normal (Right foot). Absent: Cyanosis, Edema Skin: Present: Wound/ulcer(s) (Ulcers appear stable and unchanged.) Results 07/31/17 04:53 07/31/17 04:53 Lab Results, Last 24 hours 07/31/17 07/31/17 04:53 04:53 WBC 15.6 H Hgb 9.0 L Hct 29.9 L Plt Count 268 Sodium 145 Potassium 4.0 Chloride 105 Carbon Dioxide 35 H BUN 25 Creatinine 1.21 Glucose 144 H Calcium 8.5 L Consult Discharge Plan - Plan Additional Instructions: RISK FACTORS: STOP SMOKING: If you smoke, STOP. Smoking or tobacco use significantly increases your risk of heart disease because nicotine causes the arteries to narrow or constrict. It also causes fats to stick to the artery. Your chances of having a heart attack are greatly increased if you continue to smoke. For more information, call the education line for smoking cessation 6-585-AGDVVAF EAT A LOW FAT/CHOLESTEROL/SODIUM DIET: This diet may help reduce your chances of having a heart attack. LIFTING: Avoid lifting anything more than 10 pounds for 5-7 days Prior to straining, laughing, sneezing and/or coughing, apply manual pressure directly over insertion site. ACTIVITY: You may walk or climb stairs as tolerated You can resume sexual activity as tolerated In general, you are encouraged to engage in a minimum of 30 minutes or more of moderate intensity physical activity, such as brisk walking, daily or at least 3 -4 times weekly BATHING Do not submerge the site into water (bath tub, hot tub, swimming pool) for 1 week. This can be a source for infection into the blood stream. You may shower after 24 hours SITE CARE: After 24 hours, you may remove the dressing and leave the site open to air. Keep the site clean and dry. Clean gently and pat dry. You can expect bruising and tenderness that gradually resolve within a week or two. Return to work as instructed per your physician Resume driving as instructed per physician Keep all scheduled follow up appointments Resume medications as instructed IMPORTANT: If prescribed a Platelet Aggregation Inhibitor such as, Plavix, Brilinta or Effient: Duration of therapy is minimum one year These medications are often used in combination with Aspirin in prevention of future heart attacks Never discontinue unless consult with your Refining Still Operator STROKE (CVA) Risk factors for a stroke are: Age, cigarette smoking, diabetes, excessive alcohol consumption, family history, high blood pressure, overweight, physical inactivity, prior stroke, heart attack, diagnosis of carotid artery stenosis or other artery disease. Warning signs: Sudden numbness or weakness of the face, arm or leg; especially on one side of the body, sudden confusion, trouble speaking or understanding, sudden trouble seeing in one or both eyes, sudden trouble walking, dizziness, loss of balance or coordination, sudden severe headache with no cause. Call 911 or go to the Emergency Room. CONGESTIVE HEART FAILURE: If you have been diagnosed with Congestive Heart Failure (CHF) and your symptoms return, make an appointment with your physician Weigh yourself daily. Notify your physician if you have a weight gain of two or more pounds in one day or five or more pounds in one week. If you experience any difficulty breathing, please call 911 BLEEDING: Although the risk of bleeding is minimal, it can happen. If you have any bleeding from the site, apply firm pressure above the puncture site for 10-15 minutes. If the bleeding does not stop, continue manual pressure and call 911 Contact your physician if: You develop a fever greater than 101 degrees Fahrenheit Your site becomes reddened or has any drainage You have an increase in pain or burning at the site or if a large knot forms at the site. If you experience chest pain, shortness of breath, dizziness, or extreme tiredness, stop the activity and rest. Please notify your physicians office if you experience any of these symptoms and they are not relieved by rest please call 911! Referrals: Magda Garcia CNP [Partnered Physician] - 07/30/17 10:35 am Jack Bernard MD [Partnered Physician] - 08/07/17 1:00 pm (1 WEEK AFTER DISCHARGE)
[2017-07-31] MEDS: Insulin DETEMIR 100 UNIT/ML X5UNITS SQ SCH (22:56)
[2017-08-01] MEDS: Piperacillin/Tazobactam 3.375 GM in D5% in Water (Mini-Bag+) 100 ML IVPB SCH ×3 (03:47→20:42)
[2017-08-01 04:13] LABS: Basophils # 0.1 K/mcL (0.0-0.2); Basophils % 0.5 %; Eosinophils # 0.3 K/mcL (0.0-0.6); Eosinophils % 1.5 %; Hematocrit 26.9 % (37.5-50.1); Hemoglobin 8.3 g/dL (12.9-16.9); Immature Granulocytes % 0.4 % (0-4); Lymphocytes # 1.1 K/mcL (0.6-4.6); Lymphocytes % 6.5 %; Mean Corpuscular HGB Conc 30.9 g/dL (31.6-35.5); Mean Corpuscular Volume 94.1 fL (83.0-100.0); Mean Platelet Volume 11.5 fL (9.4-12.4); Monocytes # 1.5 K/mcL (0.0-1.3); Monocytes % 9.2 %; Neutrophils # 13.4 K/mcL (1.6-8.9); Platelet Count 239 K/mcL (140-400); Red Blood Count 2.86 M/mcL (4.19-5.50); Red Cell Distribution Width 17.1 % (11.5-14.5); Segmented Neutrophils % 81.9 %
[2017-08-01 04:27] LABS: BUN/Creatinine Ratio 23 (6-26); Blood Urea Nitrogen 26 mg/dL (8-26); Calcium 8.5 mg/dL (8.6-10.8); Carbon Dioxide 34 mEq/L (19-29); Chloride 106 mEq/L (98-109); Glucose 102 mg/dL (70-99); Magnesium 1.5 mg/dL (1.6-2.6); Osmolality,Calculated 307 (280-300); Potassium 3.9 mEq/L (3.5-4.5); Sodium 146 mEq/L (136-145); eGFR For African Americans > 60 (> 60); eGFR For Non-African Americans > 60 (> 60)
[2017-08-01] MEDS: *HR* Heparin 5,000 UNIT/ML VIAL SQ SCH ×3 (05:11→20:49)
[2017-08-01] MEDS ORDERED: Magnesium Sulfate 2 GM in D5% in Water 100 ML IVPB ONE (07:49)
[2017-08-01] MEDS: Insulin LISPRO 300 UNITS/3 ML VIAL SQ SCH ×8 (08:55→20:42)
[2017-08-01] MEDS: Isosorbide MONOnitrate (24 HR) 30 MG TAB.ER.24H PO SCH (09:14)
[2017-08-01] MEDS: Furosemide 40 MG TABLET PO SCH (09:14)
[2017-08-01] MEDS: Aspirin 325 MG TABLET PO SCH (09:14)
[2017-08-01] MEDS: Magnesium Oxide 400 MG TABLET PO SCH (09:14)
[2017-08-01] MEDS: Ascorbic Acid 500 MG TABLET PO SCH ×2 (09:15→20:40)
[2017-08-01] MEDS: Sennosides/Docusate Sodium TABLET PO SCH ×2 (09:15→20:40)
[2017-08-01] MEDS: Multivit/Ca/Min/Fe/FA 1 TAB TABLET PO SCH (09:15)
[2017-08-01] MEDS: Zinc Sulfate 220 MG CAPSULE PO SCH (09:15)
[2017-08-01] MEDS: Potassium Chloride Elixir 20 MEQ/15 ML UDC PO SCH (09:16)
[2017-08-01] MEDS: *HR* Morphine 2 MG/ML SYRINGE IVP PRN (10:10)
[2017-08-01] MEDS: Nystatin Cream 15 GM TUBE TP SCH ×2 (10:17→20:41)
--- NOTE | 2017-08-01 11:56 | Internal Med Progress Note ---
Date of Encounter: 08/01/17 Time of Encounter: 10:45 - Assessment and plan (1) Osteomyelitis Current Visit: Yes Status: Acute Assessment and plan: MRI showed possible Lt calcaneus OM Started on Vanco 07/30, blood cultures negative Wound culture noted Vanc Day 2, Zosyn day 16. 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 ABIs completed 07/16/17 showed moderate disease in the RLE and severe disease in the LLE. Vascular surgery is following, Status post angiogram with right popliteal arthrectomy with angioplasty 07/17/[address] Bernard. Per Vascular, no intervention on Lt foot due to active infection (3) CAD (coronary artery disease) Current Visit: Yes Status: Chronic Assessment and plan: Chronic, stable, continue current meds-ASA/BB/Lipitor/Isosorbide/Nitro No chest pain Qualifiers: Coronary Disease-Associated Artery/Lesion type: [place] artery [place] vs. 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 Patient does have 1+ pitting pedal edema bilaterally. Echo showed LVEF 35-40%, Moderate global and segmental left ventricular systolic dysfunction, Moderate pulmonary hypertension, Moderate-severe pulmonic regurgitation I/O net positive, 2L, continue fluid restriction, lasix, ACEI, BB Qualifiers: Congestive heart failure type: systolic Congestive heart failure chronicity : acute on chronic Qualified Code(s): I50.23 - Acute on chronic systolic ( congestive) heart failure (5) DVT prophylaxis Current Visit: Yes Status: Acute Assessment and plan: Heparin SQ (6) Pressure ulcer of left heel, unstageable Current Visit: Yes Status: Acute Assessment and plan: -Podiatry following with incision drainage and debridement multiple areas left foot -Swab cultures of left heel wound with tissue cultures are growing multiple organisms -Repeat blood cultures negative -Patient with persistent leukocytosis but afebrile. Patient has received 16 days of Zosyn IV vancomycin Day 2 Associated OM of lt foot (7) Diabetes Current Visit: Yes Status: Chronic Assessment and plan: -Blood glucose controlled; continue current medical management 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 mellitus skilled nursing insulin use: without skilled nursing use Qualified Code( s): E11.621 - Type 2 diabetes mellitus with foot ulcer; L97.509 - Non-pressure chronic ulcer of other part of unspecified foot with unspecified severity; L97.509 - Non-pressure chronic ulcer of other part of unspecified foot with unspecified severity; L97.509 - Non-pressure chronic ulcer of other part of unspecified foot with unspecified severity; L97.509 - Non-pressure chronic ulcer of other part of unspecified foot with unspecified severity (8) HLD (hyperlipidemia) Current Visit: Yes Status: Chronic Assessment and plan: Continue Statin. Qualifiers: Hyperlipidemia type: unspecified Qualified Code(s): E78.5 - Hyperlipidemia , unspecified (9) HTN (hypertension) Current Visit: Yes Status: Chronic Assessment and plan: -Blood pressures controlled; continue current management.. Qualifiers: Hypertension type: essential hypertension Qualified Code(s): I10 - Essential (primary) hypertension (10) Acute kidney injury Current Visit: Yes Status: Resolved Assessment and plan: Stable, continue to monitor chem (11) Bacteremia Current Visit: Yes Status: Resolved Assessment and plan: -Bacteremia has resolved; suspect was contamination, and also possibly secondary to infected foot ulcers Blood cultures drawn 07/15/17 were positive 1/2 sets for anaerobic GNR. Most likely a contaminant given that only 1/2 sets is positive. Repeat blood cultures drawn 07/18/17 are negative x 2 sets. (12) Cellulitis Current Visit: Yes Status: Resolved Assessment and plan: Likely secondary to infected arterial ulcers. CT of the BLE negative for OM or abscess, but the patient's WBC continued to be elevated. MRI of the left foot shows findings consistent with early osteomyelitis vs. reactive osteitis. Given the markedly elevated inflammatory markers, concern for early osteomyelitis. Status post I & D of the left heel. Operative report reviewed. No evidence of osteomyelitis intra-op. Cultures were obtained and are growing Shewanella and MRSA. Zosyn day 16 vanco day 2 Qualifiers: Site of cellulitis: extremity Site of cellulitis of extremity: lower extremity Laterality: unspecified laterality Qualified Code(s): L03.119 - Cellulitis of unspecified part of limb (13) Sepsis Current Visit: Yes Status: Resolved Assessment and plan: -Sepsis has resolved and was suspected to be secondary to bacteremia which has also resolved due to left foot infection. Qualifiers: Sepsis type: sepsis due to unspecified organism Qualified Code(s): A41.9 - Sepsis, unspecified organism (14) Anemia Current Visit: Yes Status: Chronic Assessment and plan: -H&H stable -No acute bleeding reported at this time -Continue to monitor Qualifiers: Anemia type: unspecified type Qualified Code(s): D64.9 - Anemia, unspecified - Subjective Interval history: Patient seen and examined at bedside 77 M with sever vascular disease, admitted for sepsis with bacteremia, infected Lt foot ulcer, PAD with L femoral/tibial artery occlusion He also has acute OM of Lt foot by MRI Chart review revealed multiple organisms in wound culture including MRSA/ Shewanellea/jake/proteus/klebsiella/Enterococcus, patient has been on Zosyn IV for 14 days, Day 2 Vancomycin, Day 17 Zosyn Patient continues to have leukocytosis persistently Possible focus remains bilateral lower extremity ulcers which she is on appropriate antibiotics This morning, he is drowsy, states he had just received pain medications. He denies new complaints. - Constitutional Vitals: Temp Pulse Resp BP Pulse Ox 97.4 F L 58 17 113/64 95 08/01/17 11:11 08/01/17 11:11 08/01/17 11:11 08/01/17 11:11 08/01/17 11:11 General appearance: Present: cooperative, A&O X 3, pleasant, no acute distress, answers questions appropriately - Head Head exam: Present: atraumatic, normocephalic - Eye Eye exam: Present: PERRL, conjuntiva pink, sclera anicteric Pupils: Present: PERRL - Neck Neck exam general surgery: Present: supple, trachea midline. Absent: lymphadenopathy - Respiratory Respiratory exam: Present: CTAB. Absent: accessory muscle use, rales, rhonchi, wheezes - Cardiovascular Cardiovascular exam: Present: RRR, +S1, +S2. Absent: diastolic murmur, gallop, rubs, systolic murmur - GI/Abdominal GI/Abdominal exam: Present: normal bowel sounds, soft, no peritoneal signs. Absent: distended, tenderness - Extremities Exam Additional comments: Bilateral piting pedal edema (trace), chronic foot ulcer with clean wound dressing, warm extremities - Neurological Exam Neurological exam: Present: alert, CN II-XII intact, oriented X3, no focal deficits. Absent: pronater drift, facial droop, speech deficit - Skin Skin exam: Present: dry Internal Medicine: Result - Labs CBC & Chem 7: 08/01/17 03:45 08/01/17 03:45 Labs: Short CBC 08/01/17 Range/Units 03:45 WBC 16.4 H (4.3-11.1) K/mcL Hgb 8.3 L (12.9-16.9) g/dL Hct 26.9 L (37.5-50.1) % Plt Count 239 (140-400) K/mcL Neutrophils # 13.4 H (1.6-8.9) K/mcL BMP 08/01/17 03:45 Sodium 146 H Potassium 3.9 Chloride 106 Carbon Dioxide 34 H BUN 26 Creatinine 1.12 Glucose 102 H Calcium 8.5 L - ABG Interpretation ABG results: PT/INR, D-dimer PT 12.5 Seconds (9.4-12.1) H 07/16/17 01:45 - Impressions Impressions Foot X-Ray 07/31/17 13:25 IMPRESSION: Redemonstration of a posterior heel soft tissue ulceration without radiographic evidence of osteomyelitis. D/ / Christofer Neely MD / Christofer Neely MD Interpreting Provider: Christofer Neely MD Consult Discharge Plan - Plan Additional Instructions: RISK FACTORS: STOP SMOKING: If you smoke, STOP. Smoking or tobacco use significantly increases your risk of heart disease because nicotine causes the arteries to narrow or constrict. It also causes fats to stick to the artery. Your chances of having a heart attack are greatly increased if you continue to smoke. For more information, call the education line for smoking cessation 9-638-YGHLCNW EAT A LOW FAT/CHOLESTEROL/SODIUM DIET: This diet may help reduce your chances of having a heart attack. LIFTING: Avoid lifting anything more than 10 pounds for 5-7 days Prior to straining, laughing, sneezing and/or coughing, apply manual pressure directly over insertion site. ACTIVITY: You may walk or climb stairs as tolerated You can resume sexual activity as tolerated In general, you are encouraged to engage in a minimum of 30 minutes or more of moderate intensity physical activity, such as brisk walking, daily or at least 3 -4 times weekly BATHING Do not submerge the site into water (bath tub, hot tub, swimming pool) for 1 week. This can be a source for infection into the blood stream. You may shower after 24 hours SITE CARE: After 24 hours, you may remove the dressing and leave the site open to air. Keep the site clean and dry. Clean gently and pat dry. You can expect bruising and tenderness that gradually resolve within a week or two. Return to work as instructed per your physician Resume driving as instructed per physician Keep all scheduled follow up appointments Resume medications as instructed IMPORTANT: If prescribed a Platelet Aggregation Inhibitor such as, Plavix, Brilinta or Effient: Duration of therapy is minimum one year These medications are often used in combination with Aspirin in prevention of future heart attacks Never discontinue unless consult with your Machine Tool Operator STROKE (CVA) Risk factors for a stroke are: Age, cigarette smoking, diabetes, excessive alcohol consumption, family history, high blood pressure, overweight, physical inactivity, prior stroke, heart attack, diagnosis of carotid artery stenosis or other artery disease. Warning signs: Sudden numbness or weakness of the face, arm or leg; especially on one side of the body, sudden confusion, trouble speaking or understanding, sudden trouble seeing in one or both eyes, sudden trouble walking, dizziness, loss of balance or coordination, sudden severe headache with no cause. Call 911 or go to the Emergency Room. CONGESTIVE HEART FAILURE: If you have been diagnosed with Congestive Heart Failure (CHF) and your symptoms return, make an appointment with your physician Weigh yourself daily. Notify your physician if you have a weight gain of two or more pounds in one day or five or more pounds in one week. If you experience any difficulty breathing, please call 911 BLEEDING: Although the risk of bleeding is minimal, it can happen. If you have any bleeding from the site, apply firm pressure above the puncture site for 10-15 minutes. If the bleeding does not stop, continue manual pressure and call 911 Contact your physician if: You develop a fever greater than 101 degrees Fahrenheit Your site becomes reddened or has any drainage You have an increase in pain or burning at the site or if a large knot forms at the site. If you experience chest pain, shortness of breath, dizziness, or extreme tiredness, stop the activity and rest. Please notify your physicians office if you experience any of these symptoms and they are not relieved by rest please call 911! Referrals: Magda Garcia CNP [Partnered Physician] - 07/30/17 10:35 am Jack Bernard MD [Partnered Physician] - 08/07/17 1:00 pm (1 WEEK AFTER DISCHARGE)
[2017-08-01] MEDS: *HR* OxyCODONE Immed Rel 5 MG TABLET PO PRN ×2 (12:13→18:33)
--- NOTE | 2017-08-01 15:13 | Infectious Disease Progress No ---
Date of Encounter: 08/01/17 Time of Encounter: 15:11 - Assessment and Plan (1) Sepsis Current Visit: Yes Status: Resolved The patient had two SIRS criteria on admission. Likely secondary to infected arterial ulcers/cellulitis and possible OM of the left foot. Improved. Tachycardia has resolved. WBC elevated, but stable. Blood cultures drawn 07/15/17 are positive 1/2 sets for anaerobic GNR. Repeat blood cultures drawn 07/18/17 are negative x 2 sets. Qualifiers: Sepsis type: sepsis due to unspecified organism Qualified Code(s): A41.9 - Sepsis, unspecified organism (2) Bacteremia Current Visit: Yes Status: Resolved Causative organism anaerobic GNR. Blood cultures drawn 07/15/17 are positive 1/2 sets for anaerobic GNR. Most likely a contaminant given that only 1/2 sets is positive. Repeat blood cultures drawn 07/18/17 are negative x 2 sets. (3) Cellulitis Current Visit: Yes Status: Resolved Location: BLE per the medical record. Appears improved as there are no signs of cellulitis at this time. Previous wound culture grew out P. mirabilis, K. oxytoca, and E. faecalis. Likely secondary to infected arterial ulcers. CT of the BLE negative for OM or abscess, but the patient's WBC continued to be elevated. Podiatry consulted and following. Continue wound care per their recommendations. ESR >130. CRP 78. MRI of the left foot shows findings consistent with early osteomyelitis vs. reactive osteitis. Given the markedly elevated inflammatory markers, concern for early osteomyelitis. Status post I & D of the left heel. Operative report reviewed. No evidence of osteomyelitis intra-op, but debridment was only taken down to the fascia. Cultures were obtained and are growing Shewanella and MRSA. Given the markedly elevated inflammatory markers, high index of suspicion that there is osteomyelitis. The patient would likely benefit from 4-6 weeks of IV antibiotics. Continue Zosyn 3.375 grams IV Q8H. Continue Vancomycin IV. Pharmacy to dose. Goal trough 10-15. Duration of treatment depends on the clinical picture, but likely 4-6 weeks of IV antibiotics. Monitor renal function and dose-adjust antibiotics. Get weekly CBC, BUN/Cr, ESR, and CRP every Saturday for the duration of treatment. Weekly PICC care per protocol. Follow up with ID 2 weeks post-discharge. Qualifiers: Site of cellulitis: extremity Site of cellulitis of extremity: lower extremity Laterality: unspecified laterality Qualified Code(s): L03.119 - Cellulitis of unspecified part of limb (4) Acute kidney injury Current Visit: Yes Status: Resolved Likely LUCY. Resolved. Continue to trend. Dose-adjust antibiotics. Avoid nephrotoxins as able. 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 ABIs completed 07/16/17 showed moderate disease in the RLE and severe disease in the LLE. Vascular surgery consulted. Status post angiogram with right popliteal arthrectomy with angioplasty 07/17/[address] Bernard. LLE intervention on hold at this point. Continue wound care per podiatry's recommendations. (6) Weakness generalized Current Visit: Yes Status: Acute Improved. Encouraged patient to participate in PT/OT sessions. (7) Elevated troponin Current Visit: Yes Status: Resolved Likely secondary to demand ischemia. Status post [facility] 07/23/17 - no intervention, medical management only. Management per the primary team. (8) Atherosclerosis of [place] arteries of right leg with ulceration of other part of foot Current Visit: Yes Status: Chronic CLIFF showed moderate disease. Vascular surgery consulted and following. Status post RLE popliteal arthrectomy with balloon angioplasty 07/17/[address] Bernard. (9) Atherosclerosis of [place] arteries of left leg with ulceration of other part of foot Current Visit: Yes Status: Chronic CLIFF showed severe LLE disease. Vascular surgery consulted and following. Per Vascular, will likely require further LLE intervention/surgery at a later date, but on hold for now. (10) Pressure ulcer of left heel, unstageable Current Visit: Yes Status: Acute Likely multifactorial: pressure ulcer + arterial insufficiency. Podiatry consulted and following. CT scan/XR negative for OM. ESR and CRP markedly elevated. MRI shows possible early OM vs. reactive osteitis. Status post I & D 07/25/[address] Roque. Intra-operative cultures grew Shewanella and MRSA. Operative note reviewed. No gross evidence of OM, but debridement only down to fascia. Discussed with ARPITA Tinajero. Given the markedly elevated ESR and CRP, high index of suspicion for osteomyelitis. Continue wound care per podiatry. Continue antibiotics as above. (11) Anemia Current Visit: Yes Status: Chronic Etiology unclear. No acute bleeding noted on exam. Hemoglobin stable. Further workup and management per the primary team. Qualifiers: Anemia type: unspecified type Qualified Code(s): D64.9 - Anemia, unspecified (12) Diabetes Current Visit: Yes Status: Chronic Patient reports he has not been taking his diabetic medications for two years. HgbA1C 9%. Recommend aggressive glucose monitoring and control to promote wound healing and prevent re-infection. 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 mellitus detention insulin use: without detention use Qualified Code( s): E11.621 - Type 2 diabetes mellitus with foot ulcer; L97.509 - Non-pressure chronic ulcer of other part of unspecified foot with unspecified severity; L97.509 - Non-pressure chronic ulcer of other part of unspecified foot with unspecified severity; L97.509 - Non-pressure chronic ulcer of other part of unspecified foot with unspecified severity; L97.509 - Non-pressure chronic ulcer of other part of unspecified foot with unspecified severity (13) Abdominal pain Current Visit: Yes Status: Resolved Resolved. Qualifiers: Abdominal location: upper abdomen, unspecified Qualified Code(s): R10.10 - Upper abdominal pain, unspecified - Subjective Interval history: Patient seen and examined. Patient lying in bed. States he doesn't feel well today. No acute events noted overnight. States he doesn't have much of an appetite today. Denies fevers, chills, or rigors. Denies chest pain or shortness of breath, or cough. Denies diarrhea, nausea, vomiting, or abdominal pain. Patient denies urinary symptoms. Denies foot pain at this time. . Infect Dis PN-Objective Data - Labs CBC & Chem 7: 08/01/17 03:45 08/01/17 03:45 Labs: Laboratory Results - last 24 hr 07/31/17 07/31/17 07/31/17 11:25 16:07 22:10 WBC RBC Hgb Hct MCV MCH MCHC RDW Plt Count MPV Immature Gran % Seg Neutrophils % Lymphocytes % Monocytes % Eosinophils % Basophils % Neutrophils # Lymphocytes # Monocytes # Eosinophils # Basophils # Sodium Potassium Chloride Carbon Dioxide BUN Creatinine Est GFR ( Amer) Est GFR (Non-Af Amer) BUN/Creatinine Ratio Glucose POC Glucose 186 H 115 H 125 H Calculated Osmolality Calcium Magnesium Vancomycin Trough 08/01/17 08/01/17 08/01/17 03:45 03:45 12:08 WBC 16.4 H RBC 2.86 L Hgb 8.3 L Hct 26.9 L MCV 94.1 MCH 29.0 MCHC 30.9 L RDW 17.1 H Plt Count 239 MPV 11.5 Immature Gran % 0.4 Seg Neutrophils % 81.9 Lymphocytes % 6.5 Monocytes % 9.2 Eosinophils % 1.5 Basophils % 0.5 Neutrophils # 13.4 H Lymphocytes # 1.1 Monocytes # 1.5 H Eosinophils # 0.3 Basophils # 0.1 Sodium 146 H Potassium 3.9 Chloride 106 Carbon Dioxide 34 H BUN 26 Creatinine 1.12 Est GFR ( Amer) > 60 Est GFR (Non-Af Amer) > 60 BUN/Creatinine Ratio 23 Glucose 102 H POC Glucose 117 H Calculated Osmolality 307 H Calcium 8.5 L Magnesium 1.5 L Vancomycin Trough 08/01/17 13:40 WBC RBC Hgb Hct MCV MCH MCHC RDW Plt Count MPV Immature Gran % Seg Neutrophils % Lymphocytes % Monocytes % Eosinophils % Basophils % Neutrophils # Lymphocytes # Monocytes # Eosinophils # Basophils # Sodium Potassium Chloride Carbon Dioxide BUN Creatinine Est GFR ( Amer) Est GFR (Non-Af Amer) BUN/Creatinine Ratio Glucose POC Glucose Calculated Osmolality Calcium Magnesium Vancomycin Trough 12.8 Cultures: Cultures 07/25/17 14:58 Anaerobic Culture - Final Left Foot No anaerobes were recovered. 07/25/17 14:58 Surgical Biopsy Culture - Final Left Foot Shewanella putrefaciens Methicillin Resistant S.aureus Berna lipolytica 07/18/17 16:31 Blood Culture - Final Peripheral Venipuncture No growth. 07/18/17 16:31 Blood Culture - Final Peripheral Venipuncture No growth. 07/16/17 16:55 Wound Culture - Final Left Foot Proteus mirabilis Klebsiella oxytoca Enterococcus faecalis Serology 07/16/17 Range/Units 12:45 Urine Color Yellow (Yellow) Urine Clarity Cloudy A (Clear) Urine pH 5.5 (5.0-8.0) pH Units Ur Specific [place] 1.030 H (1.010-1.025) Urine Protein >=300 H (Neg-Trace) mg/dL Urine Glucose (UA) 250 H (Normal) mg/dL Urine Ketones Negative (Negative) mg/dL Urine Blood Negative (Negative) Urine Nitrite Negative (Negative) Urine Bilirubin Small H (Negative) Urine Urobilinogen Normal (Normal) mg/dL Ur Leukocyte Esterase Negative (Negative) Urine Microscopic RBC 5-15 H (0-3) per hpf Urine Microscopic WBC 5-15 H (0-3) per hpf Ur Squamous Epith Cells Many H (None-Few) per lpf Urine Bacteria None Seen (None-Few) per hpf Hyaline Casts None Seen (None-Few) per lpf Ur Culture Indicated? NO (NO) Exam - Constitutional Vitals: Temp Pulse Resp BP Pulse Ox 97.4 F L 58 17 113/64 95 08/01/17 11:11 08/01/17 11:11 08/01/17 11:11 08/01/17 11:11 08/01/17 11:11 General appearance: average body habitus, cooperative, no acute distress - Head Head exam: Present: atraumatic, normal inspection, normocephalic - Eye Eye exam: Present: EOMI, normal appearance, PERRL Pupils: Present: normal accommodation - ENT ENT exam: Present: mucous membranes moist - Neck Neck exam: Present: normal inspection - Respiratory Respiratory exam: Present: CTAB. Absent: rales, respiratory distress, rhonchi, wheezes - Cardiovascular Cardiovascular exam: Present: RRR, +S1, +S2 - GI/Abdominal GI/Abdominal exam: Present: normal bowel sounds, soft. Absent: distended, tenderness - Extremities Exam Extremities exam: Present: pedal edema (1+ BLE), tenderness (bilateral feet). Absent: joint swelling Additional comments: Bilateral feet dressings C/D/I. - Neurological Exam Neurological exam: Present: alert, oriented X3, no focal deficits - Psychiatric Psychiatric exam: Present: normal affect, normal mood - Skin Skin exam: Present: dry, intact, normal color, warm Consult Discharge Plan - Plan Additional Instructions: RISK FACTORS: STOP SMOKING: If you smoke, STOP. Smoking or tobacco use significantly increases your risk of heart disease because nicotine causes the arteries to narrow or constrict. It also causes fats to stick to the artery. Your chances of having a heart attack are greatly increased if you continue to smoke. For more information, call the education line for smoking cessation 0-690-PYVFZLM EAT A LOW FAT/CHOLESTEROL/SODIUM DIET: This diet may help reduce your chances of having a heart attack. LIFTING: Avoid lifting anything more than 10 pounds for 5-7 days Prior to straining, laughing, sneezing and/or coughing, apply manual pressure directly over insertion site. ACTIVITY: You may walk or climb stairs as tolerated You can resume sexual activity as tolerated In general, you are encouraged to engage in a minimum of 30 minutes or more of moderate intensity physical activity, such as brisk walking, daily or at least 3 -4 times weekly BATHING Do not submerge the site into water (bath tub, hot tub, swimming pool) for 1 week. This can be a source for infection into the blood stream. You may shower after 24 hours SITE CARE: After 24 hours, you may remove the dressing and leave the site open to air. Keep the site clean and dry. Clean gently and pat dry. You can expect bruising and tenderness that gradually resolve within a week or two. Return to work as instructed per your physician Resume driving as instructed per physician Keep all scheduled follow up appointments Resume medications as instructed IMPORTANT: If prescribed a Platelet Aggregation Inhibitor such as, Plavix, Brilinta or Effient: Duration of therapy is minimum one year These medications are often used in combination with Aspirin in prevention of future heart attacks Never discontinue unless consult with your Facility Maintenance Worker STROKE (CVA) Risk factors for a stroke are: Age, cigarette smoking, diabetes, excessive alcohol consumption, family history, high blood pressure, overweight, physical inactivity, prior stroke, heart attack, diagnosis of carotid artery stenosis or other artery disease. Warning signs: Sudden numbness or weakness of the face, arm or leg; especially on one side of the body, sudden confusion, trouble speaking or understanding, sudden trouble seeing in one or both eyes, sudden trouble walking, dizziness, loss of balance or coordination, sudden severe headache with no cause. Call 911 or go to the Emergency Room. CONGESTIVE HEART FAILURE: If you have been diagnosed with Congestive Heart Failure (CHF) and your symptoms return, make an appointment with your physician Weigh yourself daily. Notify your physician if you have a weight gain of two or more pounds in one day or five or more pounds in one week. If you experience any difficulty breathing, please call 911 BLEEDING: Although the risk of bleeding is minimal, it can happen. If you have any bleeding from the site, apply firm pressure above the puncture site for 10-15 minutes. If the bleeding does not stop, continue manual pressure and call 911 Contact your physician if: You develop a fever greater than 101 degrees Fahrenheit Your site becomes reddened or has any drainage You have an increase in pain or burning at the site or if a large knot forms at the site. If you experience chest pain, shortness of breath, dizziness, or extreme tiredness, stop the activity and rest. Please notify your physicians office if you experience any of these symptoms and they are not relieved by rest please call 911! Referrals: Magda Garcia CNP [Partnered Physician] - 07/30/17 10:35 am Jack Bernard MD [Partnered Physician] - 08/07/17 1:00 pm (1 WEEK AFTER DISCHARGE)
[2017-08-01] MEDS: Vancomycin 1,250 MG in D5% in Water 250 ML IVPB SCH (16:29)
[2017-08-01] MEDS: Insulin DETEMIR 100 UNIT/ML X5UNITS SQ SCH (20:41)
[2017-08-02] MEDS: *HR* Morphine 2 MG/ML SYRINGE IVP PRN ×2 (01:55→22:56)
[2017-08-02] MEDS: Piperacillin/Tazobactam 3.375 GM in D5% in Water (Mini-Bag+) 100 ML IVPB SCH (03:25)
[2017-08-02 03:40] LABS: Basophils # 0.1 K/mcL (0.0-0.2); Basophils % 0.6 %; Eosinophils # 0.2 K/mcL (0.0-0.6); Eosinophils % 1.6 %; Hematocrit 26.5 % (37.5-50.1); Hemoglobin 8.1 g/dL (12.9-16.9); Immature Granulocytes % 0.4 % (0-4); Lymphocytes % 7.9 %; Mean Corpuscular HGB Conc 30.6 g/dL (31.6-35.5); Mean Platelet Volume 11.4 fL (9.4-12.4); Monocytes # 1.2 K/mcL (0.0-1.3); Monocytes % 9.2 %; Neutrophils # 10.3 K/mcL (1.6-8.9); Platelet Count 221 K/mcL (140-400); Red Blood Count 2.79 M/mcL (4.19-5.50); Red Cell Distribution Width 17.2 % (11.5-14.5); Segmented Neutrophils % 80.3 %
[2017-08-02 04:11] LABS: BUN/Creatinine Ratio 21 (6-26); Blood Urea Nitrogen 27 mg/dL (8-26); Calcium 8.4 mg/dL (8.6-10.8); Carbon Dioxide 33 mEq/L (19-29); Chloride 106 mEq/L (98-109); Glucose 75 mg/dL (70-99); Magnesium 1.7 mg/dL (1.6-2.6); Osmolality,Calculated 304 (280-300); Potassium 3.8 mEq/L (3.5-4.5); Sodium 145 mEq/L (136-145); eGFR For African Americans > 60 (> 60); eGFR For Non-African Americans 56 (> 60)
[2017-08-02] MEDS: *HR* Heparin 5,000 UNIT/ML VIAL SQ SCH ×3 (05:50→22:50)
[2017-08-02] MEDS: Insulin LISPRO 300 UNITS/3 ML VIAL SQ SCH ×7 (08:01→22:48)
[2017-08-02] MEDS: Zinc Sulfate 220 MG CAPSULE PO SCH (08:38)
[2017-08-02] MEDS: Aspirin 325 MG TABLET PO SCH (08:38)
[2017-08-02] MEDS: Magnesium Oxide 400 MG TABLET PO SCH (08:39)
[2017-08-02] MEDS: *HR* OxyCODONE Immed Rel 5 MG TABLET PO PRN (08:39)
[2017-08-02] MEDS: Sennosides/Docusate Sodium TABLET PO SCH ×2 (08:39→22:49)
[2017-08-02] MEDS: Multivit/Ca/Min/Fe/FA 1 TAB TABLET PO SCH (08:39)
[2017-08-02] MEDS: Ascorbic Acid 500 MG TABLET PO SCH ×2 (08:39→22:49)
[2017-08-02] MEDS: Nystatin Cream 15 GM TUBE TP SCH (08:39)
[2017-08-02] MEDS: Isosorbide MONOnitrate (24 HR) 30 MG TAB.ER.24H PO SCH (08:39)
--- NOTE | 2017-08-02 10:46 | Internal Med Progress Note ---
Date of Encounter: 08/02/17 Time of Encounter: 10:46 - Assessment and plan (1) Osteomyelitis Current Visit: Yes Status: Acute Assessment and plan: MRI showed possible Lt calcaneus OM Started on Vanco 07/30, blood cultures negative Wound culture noted Vanc Day 3, Zosyn day 18. 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 ABIs completed 07/16/17 showed moderate disease in the RLE and severe disease in the LLE. Vascular surgery is following, Status post angiogram with right popliteal arthrectomy with angioplasty 07/17/[address] Bernard. Per Vascular, no intervention on Lt foot due to active infection (3) CAD (coronary artery disease) Current Visit: Yes Status: Chronic Assessment and plan: Chronic, stable, continue current meds-ASA/BB/Lipitor/Isosorbide/Nitro No chest pain Qualifiers: Coronary Disease-Associated Artery/Lesion type: [place] artery [place] vs. 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 Patient does have 1+ pitting pedal edema bilaterally. Echo showed LVEF 35-40%, Moderate global and segmental left ventricular systolic dysfunction, Moderate pulmonary hypertension, Moderate-severe pulmonic regurgitation I/O net positive, 2.3L, continue fluid restriction, BB Hold ACEI/Lasix due to YUMIKO Qualifiers: Congestive heart failure type: systolic Congestive heart failure chronicity : acute on chronic Qualified Code(s): I50.23 - Acute on chronic systolic ( congestive) heart failure (5) DVT prophylaxis Current Visit: Yes Status: Acute Assessment and plan: Heparin SQ (6) Pressure ulcer of left heel, unstageable Current Visit: Yes Status: Acute Assessment and plan: -Podiatry following with incision drainage and debridement multiple areas left foot -Swab cultures of left heel wound with tissue cultures are growing multiple organisms -Repeat blood cultures negative -Patient with persistent leukocytosis but afebrile. Patient has received 18 days of Zosyn IV, discontinued vancomycin Day 3 Associated OM of lt foot (7) Diabetes Current Visit: Yes Status: Chronic Assessment and plan: -Blood glucose controlled; continue current medical management 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 mellitus usp insulin use: without usp use Qualified Code( s): E11.621 - Type 2 diabetes mellitus with foot ulcer; L97.509 - Non-pressure chronic ulcer of other part of unspecified foot with unspecified severity; L97.509 - Non-pressure chronic ulcer of other part of unspecified foot with unspecified severity; L97.509 - Non-pressure chronic ulcer of other part of unspecified foot with unspecified severity; L97.509 - Non-pressure chronic ulcer of other part of unspecified foot with unspecified severity (8) HLD (hyperlipidemia) Current Visit: Yes Status: Chronic Assessment and plan: Continue Statin. Qualifiers: Hyperlipidemia type: unspecified Qualified Code(s): E78.5 - Hyperlipidemia , unspecified (9) HTN (hypertension) Current Visit: Yes Status: Chronic Assessment and plan: -Blood pressures controlled; continue current management.. Qualifiers: Hypertension type: essential hypertension Qualified Code(s): I10 - Essential (primary) hypertension (10) Acute kidney injury Current Visit: Yes Status: Acute Assessment and plan: Slight elevation in creatinine today Hold lasix/ACEI D/C Zosyn Monitor Vanco level (11) Bacteremia Current Visit: Yes Status: Resolved Assessment and plan: -Bacteremia has resolved; suspect was contamination, and also possibly secondary to infected foot ulcers Blood cultures drawn 07/15/17 were positive 1/2 sets for anaerobic GNR. Most likely a contaminant given that only 1/2 sets is positive. Repeat blood cultures drawn 07/18/17 are negative x 2 sets. (12) Cellulitis Current Visit: Yes Status: Resolved Assessment and plan: Likely secondary to infected arterial ulcers. CT of the BLE negative for OM or abscess, but the patient's WBC continued to be elevated. MRI of the left foot shows findings consistent with early osteomyelitis vs. reactive osteitis. Given the markedly elevated inflammatory markers, concern for early osteomyelitis. Status post I & D of the left heel. Operative report reviewed. No evidence of osteomyelitis intra-op. Cultures were obtained and are growing Shewanella and MRSA. Zosyn day 18-discontinue vanco day 3 Qualifiers: Site of cellulitis: extremity Site of cellulitis of extremity: lower extremity Laterality: unspecified laterality Qualified Code(s): L03.119 - Cellulitis of unspecified part of limb (13) Sepsis Current Visit: Yes Status: Resolved Assessment and plan: -Sepsis has resolved and was suspected to be secondary to bacteremia which has also resolved due to left foot infection. Qualifiers: Sepsis type: sepsis due to unspecified organism Qualified Code(s): A41.9 - Sepsis, unspecified organism (14) Anemia Current Visit: Yes Status: Chronic Assessment and plan: -H&H stable -No acute bleeding reported at this time -Continue to monitor Qualifiers: Anemia type: unspecified type Qualified Code(s): D64.9 - Anemia, unspecified - Subjective Interval history: Patient seen and examined at bedside 77 M with sever vascular disease, admitted for sepsis with bacteremia, infected Lt foot ulcer, PAD with L femoral/tibial artery occlusion He also has acute OM of Lt foot by MRI Chart review revealed multiple organisms in wound culture including MRSA/ Shewanellea/jake/proteus/klebsiella/Enterococcus-all sensitive to snge ahent L Day 3 Vancomycin, Day 18 Zosyn Leukocytosis is improving Renal function again worsening, will hold ACEI/Lasix and discontinue Zosyn Infectous disease reconsulted for other possible options given sensitivity with many option as well as patient's current renal status - Constitutional Vitals: Temp Pulse Resp BP Pulse Ox 98.1 F 69 13 135/80 97 08/02/17 07:43 08/02/17 07:43 08/02/17 07:43 08/02/17 07:43 08/02/17 07:43 General appearance: Present: cooperative, A&O X 3, pleasant, no acute distress, answers questions appropriately - Neck Neck exam general surgery: Present: supple, trachea midline. Absent: lymphadenopathy - Respiratory Respiratory exam: Present: CTAB. Absent: accessory muscle use, rales, rhonchi, wheezes - Cardiovascular Cardiovascular exam: Present: RRR, +S1, +S2. Absent: diastolic murmur, gallop, rubs, systolic murmur - GI/Abdominal GI/Abdominal exam: Present: normal bowel sounds, soft, no peritoneal signs. Absent: distended, tenderness - Extremities Exam Additional comments: Bilateral piting pedal edema (trace), chronic foot ulcer with clean wound dressing, warm extremities - Neurological Exam Neurological exam: Present: alert, CN II-XII intact, oriented X3, no focal deficits. Absent: pronater drift, facial droop, speech deficit - Skin Skin exam: Present: dry, intact Internal Medicine: Result - Labs CBC & Chem 7: 08/02/17 03:29 08/02/17 03:29 Labs: Short CBC 08/02/17 Range/Units 03:29 WBC 12.8 H (4.3-11.1) K/mcL Hgb 8.1 L (12.9-16.9) g/dL Hct 26.5 L (37.5-50.1) % Plt Count 221 (140-400) K/mcL Neutrophils # 10.3 H (1.6-8.9) K/mcL BMP 08/02/17 03:29 Sodium 145 Potassium 3.8 Chloride 106 Carbon Dioxide 33 H BUN 27 H Creatinine 1.26 H Glucose 75 Calcium 8.4 L - ABG Interpretation ABG results: PT/INR, D-dimer PT 12.5 Seconds (9.4-12.1) H 07/16/17 01:45 Consult Discharge Plan - Plan Additional Instructions: RISK FACTORS: STOP SMOKING: If you smoke, STOP. Smoking or tobacco use significantly increases your risk of heart disease because nicotine causes the arteries to narrow or constrict. It also causes fats to stick to the artery. Your chances of having a heart attack are greatly increased if you continue to smoke. For more information, call the education line for smoking cessation 5-522-ZDNZMHT EAT A LOW FAT/CHOLESTEROL/SODIUM DIET: This diet may help reduce your chances of having a heart attack. LIFTING: Avoid lifting anything more than 10 pounds for 5-7 days Prior to straining, laughing, sneezing and/or coughing, apply manual pressure directly over insertion site. ACTIVITY: You may walk or climb stairs as tolerated You can resume sexual activity as tolerated In general, you are encouraged to engage in a minimum of 30 minutes or more of moderate intensity physical activity, such as brisk walking, daily or at least 3 -4 times weekly BATHING Do not submerge the site into water (bath tub, hot tub, swimming pool) for 1 week. This can be a source for infection into the blood stream. You may shower after 24 hours SITE CARE: After 24 hours, you may remove the dressing and leave the site open to air. Keep the site clean and dry. Clean gently and pat dry. You can expect bruising and tenderness that gradually resolve within a week or two. Return to work as instructed per your physician Resume driving as instructed per physician Keep all scheduled follow up appointments Resume medications as instructed IMPORTANT: If prescribed a Platelet Aggregation Inhibitor such as, Plavix, Brilinta or Effient: Duration of therapy is minimum one year These medications are often used in combination with Aspirin in prevention of future heart attacks Never discontinue unless consult with your [facility] STROKE (CVA) Risk factors for a stroke are: Age, cigarette smoking, diabetes, excessive alcohol consumption, family history, high blood pressure, overweight, physical inactivity, prior stroke, heart attack, diagnosis of carotid artery stenosis or other artery disease. Warning signs: Sudden numbness or weakness of the face, arm or leg; especially on one side of the body, sudden confusion, trouble speaking or understanding, sudden trouble seeing in one or both eyes, sudden trouble walking, dizziness, loss of balance or coordination, sudden severe headache with no cause. Call 911 or go to the Emergency Room. CONGESTIVE HEART FAILURE: If you have been diagnosed with Congestive Heart Failure (CHF) and your symptoms return, make an appointment with your physician Weigh yourself daily. Notify your physician if you have a weight gain of two or more pounds in one day or five or more pounds in one week. If you experience any difficulty breathing, please call 911 BLEEDING: Although the risk of bleeding is minimal, it can happen. If you have any bleeding from the site, apply firm pressure above the puncture site for 10-15 minutes. If the bleeding does not stop, continue manual pressure and call 911 Contact your physician if: You develop a fever greater than 101 degrees Fahrenheit Your site becomes reddened or has any drainage You have an increase in pain or burning at the site or if a large knot forms at the site. If you experience chest pain, shortness of breath, dizziness, or extreme tiredness, stop the activity and rest. Please notify your physicians office if you experience any of these symptoms and they are not relieved by rest please call 911! Referrals: Tanvi Ulloa DO [Partnered Physician] - 08/06/17 9:30 am Jack Bernard MD [Partnered Physician] - 08/07/17 1:00 pm (1 WEEK AFTER DISCHARGE)
--- NOTE | 2017-08-02 12:04 | Infectious Disease Progress No ---
Date of Encounter: 08/02/17 Time of Encounter: 12:02 - Assessment and Plan (1) Sepsis Current Visit: Yes Status: Resolved The patient had two SIRS criteria on admission. Likely secondary to infected arterial ulcers/cellulitis and possible OM of the left foot. Improved. Tachycardia has resolved. WBC elevated, but stable. Blood cultures drawn 07/15/17 are positive 1/2 sets for anaerobic GNR. Repeat blood cultures drawn 07/18/17 are negative x 2 sets. Qualifiers: Sepsis type: sepsis due to unspecified organism Qualified Code(s): A41.9 - Sepsis, unspecified organism (2) Bacteremia Current Visit: Yes Status: Resolved Causative organism anaerobic GNR. Blood cultures drawn 07/15/17 are positive 1/2 sets for anaerobic GNR. Most likely a contaminant given that only 1/2 sets is positive. Repeat blood cultures drawn 07/18/17 are negative x 2 sets. (3) Cellulitis Current Visit: Yes Status: Resolved Location: BLE per the medical record. Appears improved as there are no signs of cellulitis at this time. Previous wound culture grew out P. mirabilis, K. oxytoca, and E. faecalis. Likely secondary to infected arterial ulcers. CT of the BLE negative for OM or abscess, but the patient's WBC continued to be elevated. Podiatry consulted and following. Continue wound care per their recommendations. ESR >130. CRP 78. MRI of the left foot shows findings consistent with early osteomyelitis vs. reactive osteitis. Given the markedly elevated inflammatory markers, concern for early osteomyelitis. Status post I & D of the left heel. Operative report reviewed. No evidence of osteomyelitis intra-op, but debridment was only taken down to the fascia. Cultures were obtained and are growing Shewanella and MRSA. Given the markedly elevated inflammatory markers, high index of suspicion that there is osteomyelitis. The patient would likely benefit from 4-6 weeks of IV antibiotics. Continue Zosyn 3.375 grams IV Q8H. Will likely need to go to ECF on 4.5 grams IV Q8H. Continue Vancomycin IV. Pharmacy to dose. Goal trough 10-15. Renal function is up a bit today, but VT therapeutic. Continue to observe on IV Vanc for now. If renal function continues to worsen, may consider stopping Vanc. Duration of treatment depends on the clinical picture, but likely 4-6 weeks of IV antibiotics. Monitor renal function and dose-adjust antibiotics. Get weekly CBC, BUN/Cr, ESR, and CRP every Saturday for the duration of treatment. Weekly PICC care per protocol. Follow up with ID 2 weeks post-discharge. Qualifiers: Site of cellulitis: extremity Site of cellulitis of extremity: lower extremity Laterality: unspecified laterality Qualified Code(s): L03.119 - Cellulitis of unspecified part of limb (4) Acute kidney injury Current Visit: Yes Status: Resolved Likely LUCY. Renal function up a bit today. Continue to trend. Dose-adjust antibiotics. Avoid nephrotoxins as able. 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 ABIs completed 07/16/17 showed moderate disease in the RLE and severe disease in the LLE. Vascular surgery consulted. Status post angiogram with right popliteal arthrectomy with angioplasty 07/17/[address] Bernard. LLE intervention on hold at this point. Continue wound care per podiatry's recommendations. (6) Weakness generalized Current Visit: Yes Status: Acute Improved. Encouraged patient to participate in PT/OT sessions. (7) Elevated troponin Current Visit: Yes Status: Resolved Likely secondary to demand ischemia. Status post [facility] 07/23/17 - no intervention, medical management only. Management per the primary team. (8) Atherosclerosis of [place] arteries of right leg with ulceration of other part of foot Current Visit: Yes Status: Chronic CLIFF showed moderate disease. Vascular surgery consulted and following. Status post RLE popliteal arthrectomy with balloon angioplasty 07/17/[address] Bernard. (9) Atherosclerosis of [place] arteries of left leg with ulceration of other part of foot Current Visit: Yes Status: Chronic CLIFF showed severe LLE disease. Vascular surgery consulted and following. Per Vascular, will likely require further LLE intervention/surgery at a later date, but on hold for now. (10) Pressure ulcer of left heel, unstageable Current Visit: Yes Status: Acute Likely multifactorial: pressure ulcer + arterial insufficiency. Podiatry consulted and following. CT scan/XR negative for OM. ESR and CRP markedly elevated. MRI shows possible early OM vs. reactive osteitis. Status post I & D 07/25/[address] Roque. Intra-operative cultures grew Shewanella and MRSA. Operative note reviewed. No gross evidence of OM, but debridement only down to fascia. Discussed with ARPITA Tinajero. Given the markedly elevated ESR and CRP, high index of suspicion for osteomyelitis. Continue wound care per podiatry. Continue antibiotics as above. (11) Anemia Current Visit: Yes Status: Chronic Etiology unclear. No acute bleeding noted on exam. Hemoglobin stable. Further workup and management per the primary team. Qualifiers: Anemia type: unspecified type Qualified Code(s): D64.9 - Anemia, unspecified (12) Diabetes Current Visit: Yes Status: Chronic Patient reports he has not been taking his diabetic medications for two years. HgbA1C 9%. Recommend aggressive glucose monitoring and control to promote wound healing and prevent re-infection. 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 Qualifiers: Abdominal location: upper abdomen, unspecified Qualified Code(s): R10.10 - Upper abdominal pain, unspecified - Subjective Interval history: Patient seen and examined. Patient lying in bed. States he doesn't feel well today. No acute events noted overnight. States he doesn't have much of an appetite today. Denies fevers, chills, or rigors. Denies chest pain or shortness of breath, or cough. Denies diarrhea, nausea, vomiting, or abdominal pain. Patient denies urinary symptoms. Denies foot pain at this time. . Infect Dis PN-Objective Data - Labs CBC & Chem 7: 08/02/17 03:29 08/02/17 03:29 Labs: Laboratory Results - last 24 hr 08/01/17 08/01/17 08/01/17 09:53 11:07 12:08 WBC RBC Hgb Hct MCV MCH MCHC RDW Plt Count MPV Immature Gran % Seg Neutrophils % Lymphocytes % Monocytes % Eosinophils % Basophils % Neutrophils # Lymphocytes # Monocytes # Eosinophils # Basophils # Sodium Potassium Chloride Carbon Dioxide BUN Creatinine Est GFR ( Amer) Est GFR (Non-Af Amer) BUN/Creatinine Ratio Glucose POC Glucose 141 H 141 H 117 H Calculated Osmolality Calcium Magnesium Vancomycin Trough 08/01/17 08/01/17 08/01/17 13:40 16:20 20:06 WBC RBC Hgb Hct MCV MCH MCHC RDW Plt Count MPV Immature Gran % Seg Neutrophils % Lymphocytes % Monocytes % Eosinophils % Basophils % Neutrophils # Lymphocytes # Monocytes # Eosinophils # Basophils # Sodium Potassium Chloride Carbon Dioxide BUN Creatinine Est GFR ( Amer) Est GFR (Non-Af Amer) BUN/Creatinine Ratio Glucose POC Glucose 126 H 107 H Calculated Osmolality Calcium Magnesium Vancomycin Trough 12.8 08/02/17 08/02/17 03:29 03:29 WBC 12.8 H RBC 2.79 L Hgb 8.1 L Hct 26.5 L MCV 95.0 MCH 29.0 MCHC 30.6 L RDW 17.2 H Plt Count 221 MPV 11.4 Immature Gran % 0.4 Seg Neutrophils % 80.3 Lymphocytes % 7.9 Monocytes % 9.2 Eosinophils % 1.6 Basophils % 0.6 Neutrophils # 10.3 H Lymphocytes # 1.0 Monocytes # 1.2 Eosinophils # 0.2 Basophils # 0.1 Sodium 145 Potassium 3.8 Chloride 106 Carbon Dioxide 33 H BUN 27 H Creatinine 1.26 H Est GFR ( Amer) > 60 Est GFR (Non-Af Amer) 56 L BUN/Creatinine Ratio 21 Glucose 75 POC Glucose Calculated Osmolality 304 H Calcium 8.4 L Magnesium 1.7 Vancomycin Trough Cultures: Cultures 07/25/17 14:58 Anaerobic Culture - Final Left Foot No anaerobes were recovered. 07/25/17 14:58 Surgical Biopsy Culture - Final Left Foot Shewanella putrefaciens Methicillin Resistant S.aureus Berna lipolytica 07/18/17 16:31 Blood Culture - Final Peripheral Venipuncture No growth. 07/18/17 16:31 Blood Culture - Final Peripheral Venipuncture No growth. 07/16/17 16:55 Wound Culture - Final Left Foot Proteus mirabilis Klebsiella oxytoca Enterococcus faecalis Serology 07/16/17 Range/Units 12:45 Urine Color Yellow (Yellow) Urine Clarity Cloudy A (Clear) Urine pH 5.5 (5.0-8.0) pH Units Ur Specific [place] 1.030 H (1.010-1.025) Urine Protein >=300 H (Neg-Trace) mg/dL Urine Glucose (UA) 250 H (Normal) mg/dL Urine Ketones Negative (Negative) mg/dL Urine Blood Negative (Negative) Urine Nitrite Negative (Negative) Urine Bilirubin Small H (Negative) Urine Urobilinogen Normal (Normal) mg/dL Ur Leukocyte Esterase Negative (Negative) Urine Microscopic RBC 5-15 H (0-3) per hpf Urine Microscopic WBC 5-15 H (0-3) per hpf Ur Squamous Epith Cells Many H (None-Few) per lpf Urine Bacteria None Seen (None-Few) per hpf Hyaline Casts None Seen (None-Few) per lpf Ur Culture Indicated? NO (NO) Exam - Constitutional Vitals: Temp Pulse Resp BP Pulse Ox 98.2 F 71 16 137/66 96 08/02/17 11:11 08/02/17 11:11 08/02/17 11:11 08/02/17 11:11 08/02/17 11:11 General appearance: average body habitus, cooperative, no acute distress - Head Head exam: Present: atraumatic, normal inspection, normocephalic - Eye Eye exam: Present: EOMI, normal appearance, PERRL Pupils: Present: normal accommodation - ENT ENT exam: Present: mucous membranes moist - Neck Neck exam: Present: normal inspection - Respiratory Respiratory exam: Present: CTAB. Absent: rales, respiratory distress, rhonchi, wheezes - Cardiovascular Cardiovascular exam: Present: RRR, +S1, +S2 - GI/Abdominal GI/Abdominal exam: Present: normal bowel sounds, soft. Absent: distended, tenderness - Extremities Exam Extremities exam: Present: pedal edema (1+ BLE), tenderness (bilateral feet). Absent: joint swelling Additional comments: Bilateral foot dressings C/D/I. - Neurological Exam Neurological exam: Present: alert, oriented X3, no focal deficits - Psychiatric Psychiatric exam: Present: normal affect, normal mood - Skin Skin exam: Present: dry, intact, normal color, warm Consult Discharge Plan - Plan Additional Instructions: RISK FACTORS: STOP SMOKING: If you smoke, STOP. Smoking or tobacco use significantly increases your risk of heart disease because nicotine causes the arteries to narrow or constrict. It also causes fats to stick to the artery. Your chances of having a heart attack are greatly increased if you continue to smoke. For more information, call the education line for smoking cessation 4-489-[phone] EAT A LOW FAT/CHOLESTEROL/SODIUM DIET: This diet may help reduce your chances of having a heart attack. LIFTING: Avoid lifting anything more than 10 pounds for 5-7 days Prior to straining, laughing, sneezing and/or coughing, apply manual pressure directly over insertion site. ACTIVITY: You may walk or climb stairs as tolerated You can resume sexual activity as tolerated In general, you are encouraged to engage in a minimum of 30 minutes or more of moderate intensity physical activity, such as brisk walking, daily or at least 3 -4 times weekly BATHING Do not submerge the site into water (bath tub, hot tub, swimming pool) for 1 week. This can be a source for infection into the blood stream. You may shower after 24 hours SITE CARE: After 24 hours, you may remove the dressing and leave the site open to air. Keep the site clean and dry. Clean gently and pat dry. You can expect bruising and tenderness that gradually resolve within a week or two. Return to work as instructed per your physician Resume driving as instructed per physician Keep all scheduled follow up appointments Resume medications as instructed IMPORTANT: If prescribed a Platelet Aggregation Inhibitor such as, Plavix, Brilinta or Effient: Duration of therapy is minimum one year These medications are often used in combination with Aspirin in prevention of future heart attacks Never discontinue unless consult with your [employer] Professor STROKE (CVA) Risk factors for a stroke are: Age, cigarette smoking, diabetes, excessive alcohol consumption, family history, high blood pressure, overweight, physical inactivity, prior stroke, heart attack, diagnosis of carotid artery stenosis or other artery disease. Warning signs: Sudden numbness or weakness of the face, arm or leg; especially on one side of the body, sudden confusion, trouble speaking or understanding, sudden trouble seeing in one or both eyes, sudden trouble walking, dizziness, loss of balance or coordination, sudden severe headache with no cause. Call 911 or go to the Emergency Room. CONGESTIVE HEART FAILURE: If you have been diagnosed with Congestive Heart Failure (CHF) and your symptoms return, make an appointment with your physician Weigh yourself daily. Notify your physician if you have a weight gain of two or more pounds in one day or five or more pounds in one week. If you experience any difficulty breathing, please call 911 BLEEDING: Although the risk of bleeding is minimal, it can happen. If you have any bleeding from the site, apply firm pressure above the puncture site for 10-15 minutes. If the bleeding does not stop, continue manual pressure and call 911 Contact your physician if: You develop a fever greater than 101 degrees Fahrenheit Your site becomes reddened or has any drainage You have an increase in pain or burning at the site or if a large knot forms at the site. If you experience chest pain, shortness of breath, dizziness, or extreme tiredness, stop the activity and rest. Please notify your physicians office if you experience any of these symptoms and they are not relieved by rest please call 911! Referrals: Tanvi Ulloa DO [Partnered Physician] - 08/06/17 9:30 am Jack Bernard MD [Partnered Physician] - 08/07/17 1:00 pm (1 WEEK AFTER DISCHARGE)
[2017-08-02] MEDS: Vancomycin 1,250 MG in D5% in Water 250 ML IVPB SCH (15:01)
[2017-08-02] MEDS: Insulin DETEMIR 100 UNIT/ML X5UNITS SQ SCH (22:49)
[2017-08-03] MEDS: *HR* Morphine 2 MG/ML SYRINGE IVP PRN ×2 (04:39→21:19)
[2017-08-03] MEDS: Nystatin Cream 15 GM TUBE TP SCH ×3 (04:40→21:17)
[2017-08-03] MEDS: *HR* Heparin 5,000 UNIT/ML VIAL SQ SCH ×3 (04:41→21:15)
[2017-08-03 04:57] LABS: Basophils # 0.1 K/mcL (0.0-0.2); Basophils % 0.4 %; Eosinophils # 0.1 K/mcL (0.0-0.6); Eosinophils % 0.4 %; Hematocrit 28.1 % (37.5-50.1); Hemoglobin 8.6 g/dL (12.9-16.9); Immature Granulocytes % 0.5 % (0-4); Immature Platelets 7.7 % (1.1-6.1); Lymphocytes # 0.8 K/mcL (0.6-4.6); Lymphocytes % 5.4 %; Mean Corpuscular HGB Conc 30.6 g/dL (31.6-35.5); Mean Corpuscular Hemoglobin 28.8 pg (28.0-33.3); Mean Platelet Volume 11.1 fL (9.4-12.4); Monocytes # 0.9 K/mcL (0.0-1.3); Neutrophils # 12.4 K/mcL (1.6-8.9); Platelet Count 245 K/mcL (140-400); Red Blood Count 2.99 M/mcL (4.19-5.50); Red Cell Distribution Width 17.2 % (11.5-14.5); Segmented Neutrophils % 87.3 %
[2017-08-03 05:07] LABS: BUN/Creatinine Ratio 21 (6-26); Blood Urea Nitrogen 28 mg/dL (8-26); Calcium 8.6 mg/dL (8.6-10.8); Carbon Dioxide 32 mEq/L (19-29); Chloride 105 mEq/L (98-109); Glucose 148 mg/dL (70-99); Osmolality,Calculated 308 (280-300); Potassium 4.3 mEq/L (3.5-4.5); Sodium 145 mEq/L (136-145); eGFR For African Americans > 60 (> 60); eGFR For Non-African Americans 52 (> 60)
[2017-08-03] MEDS ORDERED: 0.9 % Sodium Chloride 500 ML IVC ONE (07:43)
[2017-08-03] MEDS: Magnesium Oxide 400 MG TABLET PO SCH (08:20)
[2017-08-03] MEDS: Aspirin 325 MG TABLET PO SCH (08:20)
[2017-08-03] MEDS: Isosorbide MONOnitrate (24 HR) 30 MG TAB.ER.24H PO SCH (08:20)
[2017-08-03] MEDS: Multivit/Ca/Min/Fe/FA 1 TAB TABLET PO SCH (08:20)
[2017-08-03] MEDS: Zinc Sulfate 220 MG CAPSULE PO SCH (08:20)
[2017-08-03] MEDS: Sennosides/Docusate Sodium TABLET PO SCH ×2 (08:20→21:16)
[2017-08-03] MEDS: Ascorbic Acid 500 MG TABLET PO SCH ×2 (08:20→21:16)
[2017-08-03] MEDS: amLODIPine 5 MG TABLET PO SCH (08:21)
[2017-08-03] MEDS: Insulin LISPRO 300 UNITS/3 ML VIAL SQ SCH ×7 (08:21→21:17)
[2017-08-03] MEDS ORDERED: Aminoglycoside Consult 1 EACH MC ONE (08:53)
--- NOTE | 2017-08-03 09:04 | Internal Med Progress Note ---
Date of Encounter: 08/03/17 Time of Encounter: 09:04 - Assessment and plan (1) Osteomyelitis Current Visit: Yes Status: Acute Assessment and plan: MRI showed possible Lt calcaneus OM Started on Vanco 07/30, blood cultures negative Wound culture noted, community acquired MRSA sensitive 2 ciprofloxacin. received 3 days of vancomycinIV, and 18 days of Zosyn. 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 ABIs completed 07/16/17 showed moderate disease in the RLE and severe disease in the LLE. Vascular surgery is following, Status post angiogram with right popliteal arthrectomy with angioplasty 07/17/[address] Benrard. Per Vascular, no intervention on Lt foot due to active infection (3) CAD (coronary artery disease) Current Visit: Yes Status: Chronic Assessment and plan: Chronic, stable, continue current meds-ASA/BB/Lipitor/Isosorbide/Nitro No chest pain Qualifiers: Coronary Disease-Associated Artery/Lesion type: [place] artery [place] vs. 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 Patient does have 1+ pitting pedal edema bilaterally. Echo showed LVEF 35-40%, Moderate global and segmental left ventricular systolic dysfunction, Moderate pulmonary hypertension, Moderate-severe pulmonic regurgitation I/O net positive, 2.3L, continue fluid restriction, BB Continue to Hold ACEI/Lasix due to YUMIKO Qualifiers: Congestive heart failure type: systolic Congestive heart failure chronicity : acute on chronic Qualified Code(s): I50.23 - Acute on chronic systolic ( congestive) heart failure (5) DVT prophylaxis Current Visit: Yes Status: Acute Assessment and plan: Heparin SQ (6) Pressure ulcer of left heel, unstageable Current Visit: Yes Status: Acute Assessment and plan: -Podiatry following with incision drainage and debridement multiple areas left foot -Swab cultures of left heel wound with tissue cultures are growing multiple organisms -Repeat blood cultures negative -Patient with persistent leukocytosis but afebrile. Patient has received 18 days of Zosyn IV, discontinued 08/02 Received 3 days of vancomycin, dissconitnued today 08/03 Will start on Ciprofloxacin IV per sensitivities on culture reports (7) Diabetes Current Visit: Yes Status: Chronic Assessment and plan: -Blood glucose controlled; continue current medical management 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 mellitus care home insulin use: without terminal manager use Qualified Code( s): E11.621 - Type 2 diabetes mellitus with foot ulcer; L97.509 - Non-pressure chronic ulcer of other part of unspecified foot with unspecified severity; L97.509 - Non-pressure chronic ulcer of other part of unspecified foot with unspecified severity; L97.509 - Non-pressure chronic ulcer of other part of unspecified foot with unspecified severity; L97.509 - Non-pressure chronic ulcer of other part of unspecified foot with unspecified severity (8) HLD (hyperlipidemia) Current Visit: Yes Status: Chronic Assessment and plan: Continue Statin. Qualifiers: Hyperlipidemia type: unspecified Qualified Code(s): E78.5 - Hyperlipidemia , unspecified (9) HTN (hypertension) Current Visit: Yes Status: Chronic Assessment and plan: Blood pressure uncontrolled, add Norvasc 10mg to current regimen Qualifiers: Hypertension type: essential hypertension Qualified Code(s): I10 - Essential (primary) hypertension (10) Acute kidney injury Current Visit: Yes Status: Acute Assessment and plan: Worsening BUN/Cr today, 28(27), 1.34(1.26) Continue to hold lasix/ACEI D/C vanco Give 500cc bolus. Monitor closely Avoid nephrotoxins (11) Bacteremia Current Visit: Yes Status: Resolved Assessment and plan: -Bacteremia has resolved; suspect was contamination, and also possibly secondary to infected foot ulcers Blood cultures drawn 07/15/17 were positive 1/2 sets for anaerobic GNR. Most likely a contaminant given that only 1/2 sets is positive. Repeat blood cultures drawn 07/18/17 are negative x 2 sets. (12) Cellulitis Current Visit: Yes Status: Resolved Assessment and plan: Likely secondary to infected arterial ulcers. CT of the BLE negative for OM or abscess, but the patient's WBC continued to be elevated. MRI of the left foot shows findings consistent with early osteomyelitis vs. reactive osteitis. Given the markedly elevated inflammatory markers, concern for early osteomyelitis. Status post I & D of the left heel. Operative report reviewed. No evidence of osteomyelitis intra-op. Cultures were obtained and are growing Shewanella and MRSA. Zosyn day 18-discontinued 08/02 vanco day 3-discontinued today 08/03 Qualifiers: Site of cellulitis: extremity Site of cellulitis of extremity: lower extremity Laterality: unspecified laterality Qualified Code(s): L03.119 - Cellulitis of unspecified part of limb (13) Sepsis Current Visit: Yes Status: Resolved Assessment and plan: -Sepsis has resolved and was suspected to be secondary to bacteremia which has also resolved due to left foot infection. Qualifiers: Sepsis type: sepsis due to unspecified organism Qualified Code(s): A41.9 - Sepsis, unspecified organism (14) Anemia Current Visit: Yes Status: Chronic Assessment and plan: -H&H stable -No acute bleeding reported at this time -Continue to monitor Qualifiers: Anemia type: unspecified type Qualified Code(s): D64.9 - Anemia, unspecified (15) Discharge planning issues Current Visit: Yes Status: Acute Assessment and plan: For SNF placement - Subjective Interval history: Patient seen and examined at bedside 77 M with sever vascular disease, admitted for sepsis with bacteremia, infected Lt foot ulcer, PAD with L femoral/tibial artery occlusion He also has acute OM of Lt foot by MRI Chart review revealed multiple organisms in wound culture including MRSA/ Shewanellea/jake/proteus/klebsiella/Enterococcus-all sensitive to snge ahent L Patient has received 3 days of Vancomycin and 18 days of zosyn His renal function continues to worsen. ON 08/02, held ACEI/Lasix and discontinued Zosyn We will discontinue vancomycin and changed to ciprofloxacin which also has great coverage for osteomyelitis - Constitutional Vitals: Temp Pulse Resp BP Pulse Ox 97.6 F 83 20 161/74 95 08/03/17 08:08 08/03/17 08:08 08/03/17 08:08 08/03/17 08:08 08/03/17 08:08 General appearance: Present: cooperative, A&O X 3, pleasant, no acute distress, answers questions appropriately - Head Head exam: Present: atraumatic, normocephalic - Eye Eye exam: Present: PERRL, conjuntiva pink, sclera anicteric Pupils: Present: PERRL - Neck Neck exam general surgery: Present: supple, trachea midline. Absent: lymphadenopathy - Respiratory Respiratory exam: Present: CTAB. Absent: accessory muscle use, rales, rhonchi, wheezes - Cardiovascular Cardiovascular exam: Present: RRR, +S1, +S2. Absent: diastolic murmur, gallop, rubs, systolic murmur - GI/Abdominal GI/Abdominal exam: Present: normal bowel sounds, soft, no peritoneal signs. Absent: distended, tenderness - Extremities Exam Additional comments: Bilateral piting pedal edema (trace), chronic foot ulcer with clean wound dressing, warm extremities - Neurological Exam Neurological exam: Present: alert, CN II-XII intact, oriented X3, no focal deficits. Absent: pronater drift, facial droop, speech deficit - Skin Skin exam: Present: dry Internal Medicine: Result - Labs CBC & Chem 7: 08/03/17 04:45 08/03/17 04:45 Labs: Short CBC 08/03/17 Range/Units 04:45 WBC 14.2 H (4.3-11.1) K/mcL Hgb 8.6 L (12.9-16.9) g/dL Hct 28.1 L (37.5-50.1) % Plt Count 245 (140-400) K/mcL Neutrophils # 12.4 H (1.6-8.9) K/mcL BMP 08/03/17 04:45 Sodium 145 Potassium 4.3 Chloride 105 Carbon Dioxide 32 H BUN 28 H Creatinine 1.34 H Glucose 148 H Calcium 8.6 - ABG Interpretation ABG results: PT/INR, D-dimer PT 12.5 Seconds (9.4-12.1) H 07/16/17 01:45 Consult Discharge Plan - Plan Additional Instructions: RISK FACTORS: STOP SMOKING: If you smoke, STOP. Smoking or tobacco use significantly increases your risk of heart disease because nicotine causes the arteries to narrow or constrict. It also causes fats to stick to the artery. Your chances of having a heart attack are greatly increased if you continue to smoke. For more information, call the education line for smoking cessation 8-841-JBGJIRM EAT A LOW FAT/CHOLESTEROL/SODIUM DIET: This diet may help reduce your chances of having a heart attack. LIFTING: Avoid lifting anything more than 10 pounds for 5-7 days Prior to straining, laughing, sneezing and/or coughing, apply manual pressure directly over insertion site. ACTIVITY: You may walk or climb stairs as tolerated You can resume sexual activity as tolerated In general, you are encouraged to engage in a minimum of 30 minutes or more of moderate intensity physical activity, such as brisk walking, daily or at least 3 -4 times weekly BATHING Do not submerge the site into water (bath tub, hot tub, swimming pool) for 1 week. This can be a source for infection into the blood stream. You may shower after 24 hours SITE CARE: After 24 hours, you may remove the dressing and leave the site open to air. Keep the site clean and dry. Clean gently and pat dry. You can expect bruising and tenderness that gradually resolve within a week or two. Return to work as instructed per your physician Resume driving as instructed per physician Keep all scheduled follow up appointments Resume medications as instructed IMPORTANT: If prescribed a Platelet Aggregation Inhibitor such as, Plavix, Brilinta or Effient: Duration of therapy is minimum one year These medications are often used in combination with Aspirin in prevention of future heart attacks Never discontinue unless consult with your Manufacturing Plant Manager STROKE (CVA) Risk factors for a stroke are: Age, cigarette smoking, diabetes, excessive alcohol consumption, family history, high blood pressure, overweight, physical inactivity, prior stroke, heart attack, diagnosis of carotid artery stenosis or other artery disease. Warning signs: Sudden numbness or weakness of the face, arm or leg; especially on one side of the body, sudden confusion, trouble speaking or understanding, sudden trouble seeing in one or both eyes, sudden trouble walking, dizziness, loss of balance or coordination, sudden severe headache with no cause. Call 911 or go to the Emergency Room. CONGESTIVE HEART FAILURE: If you have been diagnosed with Congestive Heart Failure (CHF) and your symptoms return, make an appointment with your physician Weigh yourself daily. Notify your physician if you have a weight gain of two or more pounds in one day or five or more pounds in one week. If you experience any difficulty breathing, please call 911 BLEEDING: Although the risk of bleeding is minimal, it can happen. If you have any bleeding from the site, apply firm pressure above the puncture site for 10-15 minutes. If the bleeding does not stop, continue manual pressure and call 911 Contact your physician if: You develop a fever greater than 101 degrees Fahrenheit Your site becomes reddened or has any drainage You have an increase in pain or burning at the site or if a large knot forms at the site. If you experience chest pain, shortness of breath, dizziness, or extreme tiredness, stop the activity and rest. Please notify your physicians office if you experience any of these symptoms and they are not relieved by rest please call 911! Referrals: Tanvi Ulloa DO [Partnered Physician] - 08/06/17 9:30 am Jack Bernard MD [Partnered Physician] - 08/07/17 1:00 pm (1 WEEK AFTER DISCHARGE)
[2017-08-03] MEDS: Insulin DETEMIR 100 UNIT/ML X5UNITS SQ SCH (21:49)
[2017-08-04] MEDS: *HR* OxyCODONE Immed Rel 5 MG TABLET PO PRN ×2 (02:39→14:52)
[2017-08-04 03:50] LABS: Basophils % 0.3 %; Eosinophils # 0.1 K/mcL (0.0-0.6); Eosinophils % 0.4 %; Hematocrit 27.7 % (37.5-50.1); Hemoglobin 8.5 g/dL (12.9-16.9); Immature Granulocytes % 0.4 % (0-4); Lymphocytes # 0.7 K/mcL (0.6-4.6); Mean Corpuscular HGB Conc 30.7 g/dL (31.6-35.5); Mean Corpuscular Hemoglobin 28.6 pg (28.0-33.3); Mean Corpuscular Volume 93.3 fL (83.0-100.0); Mean Platelet Volume 11.8 fL (9.4-12.4); Monocytes # 1.1 K/mcL (0.0-1.3); Monocytes % 7.4 %; Neutrophils # 12.3 K/mcL (1.6-8.9); Platelet Count 253 K/mcL (140-400); Red Blood Count 2.97 M/mcL (4.19-5.50); Red Cell Distribution Width 17.2 % (11.5-14.5); Segmented Neutrophils % 86.5 %
[2017-08-04 04:05] LABS: BUN/Creatinine Ratio 24 (6-26); Blood Urea Nitrogen 33 mg/dL (8-26); Calcium 8.6 mg/dL (8.6-10.8); Carbon Dioxide 31 mEq/L (19-29); Chloride 106 mEq/L (98-109); Glucose 119 mg/dL (70-99); Osmolality,Calculated 308 (280-300); Potassium 4.1 mEq/L (3.5-4.5); Sodium 145 mEq/L (136-145); eGFR For African Americans > 60 (> 60); eGFR For Non-African Americans 51 (> 60)
[2017-08-04] MEDS ORDERED: Haloperidol Lactate 5 MG/ML VIAL IVP ONE (05:06)
[2017-08-04] MEDS: *HR* Heparin 5,000 UNIT/ML VIAL SQ SCH ×3 (05:28→22:54)
[2017-08-04] MEDS: Zinc Sulfate 220 MG CAPSULE PO SCH (08:40)
[2017-08-04] MEDS: Ascorbic Acid 500 MG TABLET PO SCH ×2 (08:40→22:54)
[2017-08-04] MEDS: Sennosides/Docusate Sodium TABLET PO SCH ×2 (08:40→22:55)
[2017-08-04] MEDS: Magnesium Oxide 400 MG TABLET PO SCH (08:40)
[2017-08-04] MEDS: Multivit/Ca/Min/Fe/FA 1 TAB TABLET PO SCH (08:40)
[2017-08-04] MEDS: Aspirin 325 MG TABLET PO SCH (08:41)
[2017-08-04] MEDS: Isosorbide MONOnitrate (24 HR) 30 MG TAB.ER.24H PO SCH (08:42)
[2017-08-04] MEDS: amLODIPine 5 MG TABLET PO SCH (08:43)
[2017-08-04] MEDS: Insulin LISPRO 300 UNITS/3 ML VIAL SQ SCH ×7 (09:00→22:54)
--- NOTE | 2017-08-04 09:20 | Internal Med Progress Note ---
Date of Encounter: 08/04/17 Time of Encounter: 09:20 - Assessment and plan (1) Osteomyelitis Current Visit: Yes Status: Acute Assessment and plan: MRI showed possible Lt calcaneus OM Started on Vanco 07/30, blood cultures negative Wound culture noted, community acquired MRSA sensitive 2 ciprofloxacin. received 3 days of vancomycinIV, and 18 days of Zosyn. 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 ABIs completed 07/16/17 showed moderate disease in the RLE and severe disease in the LLE. Vascular surgery is following, Status post angiogram with right popliteal arthrectomy with angioplasty 07/17/[address] Bernard. Per Vascular, no intervention on Lt foot due to active infection (3) CAD (coronary artery disease) Current Visit: Yes Status: Chronic Assessment and plan: Chronic, stable, continue current meds-ASA/BB/Lipitor/Isosorbide/Nitro No chest pain Qualifiers: Coronary Disease-Associated Artery/Lesion type: [place] artery [place] vs. 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 Patient does have 1+ pitting pedal edema bilaterally. Echo showed LVEF 35-40%, Moderate global and segmental left ventricular systolic dysfunction, Moderate pulmonary hypertension, Moderate-severe pulmonic regurgitation I/O net positive, 2.3L, continue fluid restriction, BB Continue to Hold ACEI/Lasix due to YUMIKO Qualifiers: Congestive heart failure type: systolic Congestive heart failure chronicity : acute on chronic Qualified Code(s): I50.23 - Acute on chronic systolic ( congestive) heart failure (5) DVT prophylaxis Current Visit: Yes Status: Acute Assessment and plan: Heparin SQ (6) Pressure ulcer of left heel, unstageable Current Visit: Yes Status: Acute Assessment and plan: -Podiatry following with incision drainage and debridement multiple areas left foot -Swab cultures of left heel wound with tissue cultures are growing multiple organisms -Repeat blood cultures negative -Patient with persistent leukocytosis but afebrile. Patient has received 18 days of Zosyn IV, discontinued 08/02 Received 3 days of vancomycin, dissconitnued today 08/03 Continue Ciprofloxacin IV BID (7) Diabetes Current Visit: Yes Status: Chronic Assessment and plan: -Blood glucose controlled; continue current medical management 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 mellitus mcfp insulin use: without extrusion die corrector use Qualified Code( s): E11.621 - Type 2 diabetes mellitus with foot ulcer; L97.509 - Non-pressure chronic ulcer of other part of unspecified foot with unspecified severity; L97.509 - Non-pressure chronic ulcer of other part of unspecified foot with unspecified severity; L97.509 - Non-pressure chronic ulcer of other part of unspecified foot with unspecified severity; L97.509 - Non-pressure chronic ulcer of other part of unspecified foot with unspecified severity (8) HLD (hyperlipidemia) Current Visit: Yes Status: Chronic Assessment and plan: Continue Statin. Qualifiers: Hyperlipidemia type: unspecified Qualified Code(s): E78.5 - Hyperlipidemia , unspecified (9) HTN (hypertension) Current Visit: Yes Status: Chronic Assessment and plan: Blood pressure uncontrolled, add Norvasc 10mg to current regimen Qualifiers: Hypertension type: essential hypertension Qualified Code(s): I10 - Essential (primary) hypertension (10) Acute kidney injury Current Visit: Yes Status: Acute Assessment and plan: Worsening BUN/Cr today, 28(27), 1.34(1.26) Continue to hold lasix/ACEI D/C vanco 08/03 Cr stable at 1.36 today Monitor closely Avoid nephrotoxins (11) Bacteremia Current Visit: Yes Status: Resolved Assessment and plan: -Bacteremia has resolved; suspect was contamination, and also possibly secondary to infected foot ulcers Blood cultures drawn 07/15/17 were positive 1/2 sets for anaerobic GNR. Most likely a contaminant given that only 1/2 sets is positive. Repeat blood cultures drawn 07/18/17 are negative x 2 sets. (12) Cellulitis Current Visit: Yes Status: Resolved Assessment and plan: Likely secondary to infected arterial ulcers. CT of the BLE negative for OM or abscess, but the patient's WBC continued to be elevated. MRI of the left foot shows findings consistent with early osteomyelitis vs. reactive osteitis. Given the markedly elevated inflammatory markers, concern for early osteomyelitis. Status post I & D of the left heel. Operative report reviewed. No evidence of osteomyelitis intra-op. Cultures were obtained and are growing Shewanella and MRSA. Zosyn day 18-discontinued 08/02 vanco day 3-discontinued today 08/03 Continue ciproflox Qualifiers: Site of cellulitis: extremity Site of cellulitis of extremity: lower extremity Laterality: unspecified laterality Qualified Code(s): L03.119 - Cellulitis of unspecified part of limb (13) Sepsis Current Visit: Yes Status: Resolved Assessment and plan: -Sepsis has resolved and was suspected to be secondary to bacteremia which has also resolved due to left foot infection. Qualifiers: Sepsis type: sepsis due to unspecified organism Qualified Code(s): A41.9 - Sepsis, unspecified organism (14) Anemia Current Visit: Yes Status: Chronic Assessment and plan: -H&H stable -No acute bleeding reported at this time -Continue to monitor Qualifiers: Anemia type: unspecified type Qualified Code(s): D64.9 - Anemia, unspecified (15) Discharge planning issues Current Visit: Yes Status: Acute Assessment and plan: For SNF placement - Subjective Interval history: Patient seen and examined at bedside 77 M with sever vascular disease, admitted for sepsis with bacteremia, infected Lt foot ulcer, PAD with L femoral/tibial artery occlusion He also has acute OM of Lt foot by MRI Chart review revealed multiple organisms in wound culture including MRSA/ Shewanellea/jake/proteus/klebsiella/Enterococcus-all sensitive to snge ahent L Patient has received 3 days of Vancomycin and 18 days of zosyn His renal function continues to worsen. ON 08/02, held ACEI/Lasix and discontinued Zosyn Discontinued 08/03 vancomycin and changed to ciprofloxacin which also has great coverage for osteomyelitis He denies new complains Noted to have hypothermia overnight - Constitutional Vitals: Temp Pulse Resp BP Pulse Ox 97.4 F L 71 16 152/72 97 08/03/17 23:59 08/04/17 03:07 08/04/17 03:07 08/04/17 03:07 08/04/17 03:07 General appearance: Present: cooperative, A&O X 3, pleasant, no acute distress, answers questions appropriately - Head Head exam: Present: atraumatic, normocephalic - Eye Eye exam: Present: PERRL, conjuntiva pink, sclera anicteric Pupils: Present: PERRL - Neck Neck exam general surgery: Present: supple, trachea midline. Absent: lymphadenopathy - Respiratory Respiratory exam: Present: CTAB. Absent: accessory muscle use, rales, rhonchi, wheezes - Cardiovascular Cardiovascular exam: Present: RRR, +S1, +S2. Absent: diastolic murmur, gallop, rubs, systolic murmur - GI/Abdominal GI/Abdominal exam: Present: normal bowel sounds, soft, no peritoneal signs. Absent: distended, tenderness - Extremities Exam Additional comments: Wound dressing clean and dry - Neurological Exam Neurological exam: Present: alert, CN II-XII intact, oriented X3, no focal deficits. Absent: pronater drift, facial droop, speech deficit - Skin Skin exam: Present: dry Internal Medicine: Result - Labs CBC & Chem 7: 08/04/17 02:50 08/04/17 02:50 Labs: Short CBC 08/04/17 Range/Units 02:50 WBC 14.2 H (4.3-11.1) K/mcL Hgb 8.5 L (12.9-16.9) g/dL Hct 27.7 L (37.5-50.1) % Plt Count 253 (140-400) K/mcL Neutrophils # 12.3 H (1.6-8.9) K/mcL BMP 08/04/17 02:50 Sodium 145 Potassium 4.1 Chloride 106 Carbon Dioxide 31 H BUN 33 H Creatinine 1.36 H Glucose 119 H Calcium 8.6 - ABG Interpretation ABG results: PT/INR, D-dimer PT 12.5 Seconds (9.4-12.1) H 07/16/17 01:45 Consult Discharge Plan - Plan Additional Instructions: RISK FACTORS: STOP SMOKING: If you smoke, STOP. Smoking or tobacco use significantly increases your risk of heart disease because nicotine causes the arteries to narrow or constrict. It also causes fats to stick to the artery. Your chances of having a heart attack are greatly increased if you continue to smoke. For more information, call the education line for smoking cessation 6-459-ALFUVWC EAT A LOW FAT/CHOLESTEROL/SODIUM DIET: This diet may help reduce your chances of having a heart attack. LIFTING: Avoid lifting anything more than 10 pounds for 5-7 days Prior to straining, laughing, sneezing and/or coughing, apply manual pressure directly over insertion site. ACTIVITY: You may walk or climb stairs as tolerated You can resume sexual activity as tolerated In general, you are encouraged to engage in a minimum of 30 minutes or more of moderate intensity physical activity, such as brisk walking, daily or at least 3 -4 times weekly BATHING Do not submerge the site into water (bath tub, hot tub, swimming pool) for 1 week. This can be a source for infection into the blood stream. You may shower after 24 hours SITE CARE: After 24 hours, you may remove the dressing and leave the site open to air. Keep the site clean and dry. Clean gently and pat dry. You can expect bruising and tenderness that gradually resolve within a week or two. Return to work as instructed per your physician Resume driving as instructed per physician Keep all scheduled follow up appointments Resume medications as instructed IMPORTANT: If prescribed a Platelet Aggregation Inhibitor such as, Plavix, Brilinta or Effient: Duration of therapy is minimum one year These medications are often used in combination with Aspirin in prevention of future heart attacks Never discontinue unless consult with your [employer]ator STROKE (CVA) Risk factors for a stroke are: Age, cigarette smoking, diabetes, excessive alcohol consumption, family history, high blood pressure, overweight, physical inactivity, prior stroke, heart attack, diagnosis of carotid artery stenosis or other artery disease. Warning signs: Sudden numbness or weakness of the face, arm or leg; especially on one side of the body, sudden confusion, trouble speaking or understanding, sudden trouble seeing in one or both eyes, sudden trouble walking, dizziness, loss of balance or coordination, sudden severe headache with no cause. Call 911 or go to the Emergency Room. CONGESTIVE HEART FAILURE: If you have been diagnosed with Congestive Heart Failure (CHF) and your symptoms return, make an appointment with your physician Weigh yourself daily. Notify your physician if you have a weight gain of two or more pounds in one day or five or more pounds in one week. If you experience any difficulty breathing, please call 911 BLEEDING: Although the risk of bleeding is minimal, it can happen. If you have any bleeding from the site, apply firm pressure above the puncture site for 10-15 minutes. If the bleeding does not stop, continue manual pressure and call 911 Contact your physician if: You develop a fever greater than 101 degrees Fahrenheit Your site becomes reddened or has any drainage You have an increase in pain or burning at the site or if a large knot forms at the site. If you experience chest pain, shortness of breath, dizziness, or extreme tiredness, stop the activity and rest. Please notify your physicians office if you experience any of these symptoms and they are not relieved by rest please call 911! Referrals: Tanvi Ulloa DO [Partnered Physician] - 08/06/17 9:30 am Jack Bernard MD [Partnered Physician] - 08/07/17 1:00 pm (1 WEEK AFTER DISCHARGE)
[2017-08-04] MEDS: Nystatin Cream 15 GM TUBE TP SCH ×2 (14:48→22:53)
[2017-08-04] MEDS: Insulin DETEMIR 100 UNIT/ML X5UNITS SQ SCH (22:53)
[2017-08-04] MEDS: *HR* Morphine 2 MG/ML SYRINGE IVP PRN (22:54)
[2017-08-05] MEDS: *HR* Heparin 5,000 UNIT/ML VIAL SQ SCH ×3 (06:12→22:02)
[2017-08-05 06:31] LABS: BUN/Creatinine Ratio 26 (6-26); Blood Urea Nitrogen 32 mg/dL (8-26); Calcium 8.6 mg/dL (8.6-10.8); Carbon Dioxide 33 mEq/L (19-29); Chloride 106 mEq/L (98-109); Glucose 84 mg/dL (70-99); Osmolality,Calculated 308 (280-300); Potassium 4.2 mEq/L (3.5-4.5); Sodium 146 mEq/L (136-145); eGFR For African Americans > 60 (> 60); eGFR For Non-African Americans 58 (> 60)
[2017-08-05 06:40] LABS: Basophils # 0.1 K/mcL (0.0-0.2); Basophils % 0.5 %; Eosinophils % 0.3 %; Hematocrit 28.3 % (37.5-50.1); Hemoglobin 8.6 g/dL (12.9-16.9); Immature Granulocytes % 0.4 % (0-4); Lymphocytes # 1.1 K/mcL (0.6-4.6); Lymphocytes % 8.1 %; Mean Corpuscular HGB Conc 30.4 g/dL (31.6-35.5); Mean Corpuscular Hemoglobin 28.7 pg (28.0-33.3); Mean Corpuscular Volume 94.3 fL (83.0-100.0); Mean Platelet Volume 11.6 fL (9.4-12.4); Monocytes # 1.4 K/mcL (0.0-1.3); Monocytes % 9.9 %; Neutrophils # 11.3 K/mcL (1.6-8.9); Platelet Count 276 K/mcL (140-400); Red Cell Distribution Width 17.6 % (11.5-14.5); Segmented Neutrophils % 80.8 %
[2017-08-05] MEDS: Ascorbic Acid 500 MG TABLET PO SCH ×2 (09:06→22:02)
[2017-08-05] MEDS: Isosorbide MONOnitrate (24 HR) 30 MG TAB.ER.24H PO SCH (09:06)
[2017-08-05] MEDS: Sennosides/Docusate Sodium TABLET PO SCH ×2 (09:06→22:02)
[2017-08-05] MEDS: Multivit/Ca/Min/Fe/FA 1 TAB TABLET PO SCH (09:06)
[2017-08-05] MEDS: Zinc Sulfate 220 MG CAPSULE PO SCH (09:07)
[2017-08-05] MEDS: Aspirin 325 MG TABLET PO SCH (09:07)
[2017-08-05] MEDS: amLODIPine 5 MG TABLET PO SCH (09:07)
[2017-08-05] MEDS: Magnesium Oxide 400 MG TABLET PO SCH (09:08)
[2017-08-05] MEDS: Insulin LISPRO 300 UNITS/3 ML VIAL SQ SCH ×7 (09:08→22:03)
[2017-08-05] MEDS: Nystatin Cream 15 GM TUBE TP SCH ×2 (09:08→22:04)
--- NOTE | 2017-08-05 09:21 | Internal Med Progress Note ---
Date of Encounter: 08/05/17 Time of Encounter: 09:19 - Assessment and plan (1) Osteomyelitis Current Visit: Yes Status: Acute Assessment and plan: MRI showed possible Lt calcaneus OM Started on Vanco 07/30, blood cultures negative Wound culture noted, community acquired MRSA sensitive 2 ciprofloxacin. received 3 days of vancomycinIV, and 18 days of Zosyn. 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 ABIs completed 07/16/17 showed moderate disease in the RLE and severe disease in the LLE. Vascular surgery is following, Status post angiogram with right popliteal arthrectomy with angioplasty 07/17/[address] Bernard. Per Vascular, no intervention on Lt foot due to active infection Continue wound dressing per podiatry (3) CAD (coronary artery disease) Current Visit: Yes Status: Chronic Assessment and plan: Chronic, stable, continue current meds-ASA/BB/Lipitor/Isosorbide/Nitro No chest pain Qualifiers: Coronary Disease-Associated Artery/Lesion type: [place] artery [place] vs. 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 Patient does have 1+ pitting pedal edema bilaterally. Echo showed LVEF 35-40%, Moderate global and segmental left ventricular systolic dysfunction, Moderate pulmonary hypertension, Moderate-severe pulmonic regurgitation I/O net positive, 2.3L, continue fluid restriction, BB Continue to Hold ACEI/Lasix due to [place] Qualifiers: Congestive heart failure type: systolic Congestive heart failure chronicity : acute on chronic Qualified Code(s): I50.23 - Acute on chronic systolic ( congestive) heart failure (5) DVT prophylaxis Current Visit: Yes Status: Acute Assessment and plan: Heparin SQ (6) Pressure ulcer of left heel, unstageable Current Visit: Yes Status: Acute Assessment and plan: -Podiatry following with incision drainage and debridement multiple areas left foot -Swab cultures of left heel wound with tissue cultures are growing multiple organisms -Repeat blood cultures negative -Patient with persistent leukocytosis but afebrile. Patient has received 18 days of Zosyn IV, discontinued 08/02 Received 3 days of vancomycin, discontinued 08/03 Continue Ciprofloxacin IV BID (7) Diabetes Current Visit: Yes Status: Chronic Assessment and plan: -Blood glucose controlled; continue current medical management 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 mellitus assisted insulin use: without assisted use Qualified Code( s): E11.621 - Type 2 diabetes mellitus with foot ulcer; L97.509 - Non-pressure chronic ulcer of other part of unspecified foot with unspecified severity; L97.509 - Non-pressure chronic ulcer of other part of unspecified foot with unspecified severity; L97.509 - Non-pressure chronic ulcer of other part of unspecified foot with unspecified severity; L97.509 - Non-pressure chronic ulcer of other part of unspecified foot with unspecified severity (8) HLD (hyperlipidemia) Current Visit: Yes Status: Chronic Assessment and plan: Continue Statin. Qualifiers: Hyperlipidemia type: unspecified Qualified Code(s): E78.5 - Hyperlipidemia , unspecified (9) HTN (hypertension) Current Visit: Yes Status: Chronic Assessment and plan: Blood pressure uncontrolled, add Norvasc 10mg to current regimen Qualifiers: Hypertension type: essential hypertension Qualified Code(s): I10 - Essential (primary) hypertension (10) Acute kidney injury Current Visit: Yes Status: Acute Assessment and plan: Worsening BUN/Cr today, 28(27), 1.34(1.26) Continue to hold lasix/ACEI D/C vanco 08/03 Cr improved to 1.22 (1.36) Monitor closely Avoid nephrotoxins (11) Bacteremia Current Visit: Yes Status: Resolved Assessment and plan: -Bacteremia has resolved; suspect was contamination, and also possibly secondary to infected foot ulcers Blood cultures drawn 07/15/17 were positive 1/2 sets for anaerobic GNR. Most likely a contaminant given that only 1/2 sets is positive. Repeat blood cultures drawn 07/18/17 are negative x 2 sets. (12) Cellulitis Current Visit: Yes Status: Resolved Assessment and plan: Likely secondary to infected arterial ulcers. CT of the BLE negative for OM or abscess, but the patient's WBC continued to be elevated. MRI of the left foot shows findings consistent with early osteomyelitis vs. reactive osteitis. Given the markedly elevated inflammatory markers, concern for early osteomyelitis. Status post I & D of the left heel. Operative report reviewed. No evidence of osteomyelitis intra-op. Cultures were obtained and are growing Shewanella and MRSA. Zosyn day 18-discontinued 08/02 vanco day 3-discontinued today 08/03 Continue ciproflox Qualifiers: Site of cellulitis: extremity Site of cellulitis of extremity: lower extremity Laterality: unspecified laterality Qualified Code(s): L03.119 - Cellulitis of unspecified part of limb (13) Sepsis Current Visit: Yes Status: Resolved Assessment and plan: -Sepsis has resolved and was suspected to be secondary to bacteremia which has also resolved due to left foot infection. Qualifiers: Sepsis type: sepsis due to unspecified organism Qualified Code(s): A41.9 - Sepsis, unspecified organism (14) Anemia Current Visit: Yes Status: Chronic Assessment and plan: -H&H stable -No acute bleeding reported at this time -Continue to monitor Qualifiers: Anemia type: unspecified type Qualified Code(s): D64.9 - Anemia, unspecified (15) Discharge planning issues Current Visit: Yes Status: Acute Assessment and plan: For SNF placement - Subjective Interval history: Patient seen and examined at bedside 77 M with sever vascular disease, admitted for sepsis with bacteremia, infected Lt foot ulcer, PAD with L femoral/tibial artery occlusion He also has acute OM of Lt foot by MRI Chart review revealed multiple organisms in wound culture including MRSA/ [place]/jake/proteus/klebsiella/Enterococcus-sensitivities noted Patient received 3 days of Vancomycin and 18 days of zosyn His renal function continued mto worsen till 08/04, vancomycin discontinued ON 08/02, held ACEI/Lasix and discontinued Zosyn Started on ciprofloxacin which also has great coverage for osteomyelitis He denies new complains Hypothermia from 08/04 resolved Patient denies new complains Blood culture from 08/04 is pending - Constitutional Vitals: Temp Pulse Resp BP Pulse Ox 97.9 F 73 17 138/64 92 08/05/17 07:49 08/05/17 07:49 08/05/17 07:49 08/05/17 07:49 08/05/17 07:49 General appearance: Present: cooperative, A&O X 3, pleasant, no acute distress, answers questions appropriately - Head Head exam: Present: atraumatic, normocephalic - Eye Eye exam: Present: PERRL, conjuntiva pink, sclera anicteric Pupils: Present: PERRL - Neck Neck exam general surgery: Present: supple, trachea midline. Absent: lymphadenopathy - Respiratory Respiratory exam: Present: CTAB. Absent: accessory muscle use, rales, rhonchi, wheezes - Cardiovascular Cardiovascular exam: Present: RRR, +S1, +S2. Absent: diastolic murmur, gallop, rubs, systolic murmur - GI/Abdominal GI/Abdominal exam: Present: normal bowel sounds, soft, no peritoneal signs. Absent: distended, tenderness - Extremities Exam Extremities exam: Present: warm, radial pulses palpable and symmetrical. Absent : calf tenderness, cyanotic, pedal edema Additional comments: Wound inspected. Mottled toes, clean wound, no discharge. Trace pedal edema bilaterally - Neurological Exam Neurological exam: Present: CN II-XII intact, oriented X3, no focal deficits. Absent: pronater drift, facial droop, speech deficit - Skin Skin exam: Present: dry Internal Medicine: Result - Labs CBC & Chem 7: 08/05/17 06:05 08/05/17 06:05 Labs: Short CBC 08/05/17 Range/Units 06:05 WBC 14.0 H (4.3-11.1) K/mcL Hgb 8.6 L (12.9-16.9) g/dL Hct 28.3 L (37.5-50.1) % Plt Count 276 (140-400) K/mcL Neutrophils # 11.3 H (1.6-8.9) K/mcL BMP 08/05/17 06:05 Sodium 146 H Potassium 4.2 Chloride 106 Carbon Dioxide 33 H BUN 32 H Creatinine 1.22 Glucose 84 Calcium 8.6 - ABG Interpretation ABG results: PT/INR, D-dimer PT 12.5 Seconds (9.4-12.1) H 07/16/17 01:45 Consult Discharge Plan - Plan Additional Instructions: RISK FACTORS: STOP SMOKING: If you smoke, STOP. Smoking or tobacco use significantly increases your risk of heart disease because nicotine causes the arteries to narrow or constrict. It also causes fats to stick to the artery. Your chances of having a heart attack are greatly increased if you continue to smoke. For more information, call the education line for smoking cessation 1-809-EDLOTJT EAT A LOW FAT/CHOLESTEROL/SODIUM DIET: This diet may help reduce your chances of having a heart attack. LIFTING: Avoid lifting anything more than 10 pounds for 5-7 days Prior to straining, laughing, sneezing and/or coughing, apply manual pressure directly over insertion site. ACTIVITY: You may walk or climb stairs as tolerated You can resume sexual activity as tolerated In general, you are encouraged to engage in a minimum of 30 minutes or more of moderate intensity physical activity, such as brisk walking, daily or at least 3 -4 times weekly BATHING Do not submerge the site into water (bath tub, hot tub, swimming pool) for 1 week. This can be a source for infection into the blood stream. You may shower after 24 hours SITE CARE: After 24 hours, you may remove the dressing and leave the site open to air. Keep the site clean and dry. Clean gently and pat dry. You can expect bruising and tenderness that gradually resolve within a week or two. Return to work as instructed per your physician Resume driving as instructed per physician Keep all scheduled follow up appointments Resume medications as instructed IMPORTANT: If prescribed a Platelet Aggregation Inhibitor such as, Plavix, Brilinta or Effient: Duration of therapy is minimum one year These medications are often used in combination with Aspirin in prevention of future heart attacks Never discontinue unless consult with your [employer] STROKE (CVA) Risk factors for a stroke are: Age, cigarette smoking, diabetes, excessive alcohol consumption, family history, high blood pressure, overweight, physical inactivity, prior stroke, heart attack, diagnosis of carotid artery stenosis or other artery disease. Warning signs: Sudden numbness or weakness of the face, arm or leg; especially on one side of the body, sudden confusion, trouble speaking or understanding, sudden trouble seeing in one or both eyes, sudden trouble walking, dizziness, loss of balance or coordination, sudden severe headache with no cause. Call 911 or go to the Emergency Room. CONGESTIVE HEART FAILURE: If you have been diagnosed with Congestive Heart Failure (CHF) and your symptoms return, make an appointment with your physician Weigh yourself daily. Notify your physician if you have a weight gain of two or more pounds in one day or five or more pounds in one week. If you experience any difficulty breathing, please call 911 BLEEDING: Although the risk of bleeding is minimal, it can happen. If you have any bleeding from the site, apply firm pressure above the puncture site for 10-15 minutes. If the bleeding does not stop, continue manual pressure and call 911 Contact your physician if: You develop a fever greater than 101 degrees Fahrenheit Your site becomes reddened or has any drainage You have an increase in pain or burning at the site or if a large knot forms at the site. If you experience chest pain, shortness of breath, dizziness, or extreme tiredness, stop the activity and rest. Please notify your physicians office if you experience any of these symptoms and they are not relieved by rest please call 911! Referrals: Tanvi Ulloa DO [Partnered Physician] - 08/06/17 9:30 am Jack Bernard MD [Partnered Physician] - 08/07/17 1:00 pm (1 WEEK AFTER DISCHARGE)
--- NOTE | 2017-08-05 13:36 | Infectious Disease Progress No ---
Date of Encounter: 08/05/17 Time of Encounter: 13:33 - Assessment and Plan (1) Sepsis Current Visit: Yes Status: Resolved The patient had two SIRS criteria on admission. Likely secondary to infected arterial ulcers/cellulitis and possible OM of the left foot. Improved. Tachycardia has resolved. WBC elevated, but stable. Blood cultures drawn 07/15/17 are positive 1/2 sets for anaerobic GNR. Repeat blood cultures drawn 07/18/17 are negative x 2 sets. Qualifiers: Sepsis type: sepsis due to unspecified organism Qualified Code(s): A41.9 - Sepsis, unspecified organism (2) Bacteremia Current Visit: Yes Status: Resolved Causative organism anaerobic GNR. Blood cultures drawn 07/15/17 are positive 1/2 sets for anaerobic GNR. Most likely a contaminant given that only 1/2 sets is positive. Repeat blood cultures drawn 07/18/17 are negative x 2 sets. (3) Cellulitis Current Visit: Yes Status: Resolved Location: BLE per the medical record. Appears improved as there are no signs of cellulitis at this time. Previous wound culture grew out P. mirabilis, K. oxytoca, and E. faecalis. Likely secondary to infected arterial ulcers. CT of the BLE negative for OM or abscess, but the patient's WBC continued to be elevated. Podiatry consulted and following. Continue wound care per their recommendations. ESR >130. CRP 78. MRI of the left foot shows findings consistent with early osteomyelitis vs. reactive osteitis. Given the markedly elevated inflammatory markers, concern for early osteomyelitis. Status post I & D of the left heel. Operative report reviewed. No evidence of osteomyelitis intra-op, but debridment was only taken down to the fascia. Cultures were obtained and are growing Shewanella and MRSA. Given the markedly elevated inflammatory markers, high index of suspicion that there is osteomyelitis. The patient would likely benefit from 4-6 weeks of IV antibiotics. Vancomycin and Zosyn discontinued by the primary team over the weekend. Recommend re-starting IV Vancomycin to treat the MRSA with very close monitoring of Vanc troughs and renal function. Recommend starting Levaquin 750mg IV daily to treat the Shewanella. Will need to monitor the patient's progression very closely as there is a possibility that he may develop resistance during treatment. Duration of treatment depends on the clinical picture, but likely 4-6 weeks of IV antibiotics. Monitor renal function and dose-adjust antibiotics. Case discussed with Dr. Michelle with the primary team. States she feels comfortable managing the patient's antibiotic therapy. No further recommendations from the ID team. Please re-consult if further recommendations are requested. Qualifiers: Site of cellulitis: extremity Site of cellulitis of extremity: lower extremity Laterality: unspecified laterality Qualified Code(s): L03.119 - Cellulitis of unspecified part of limb (4) Acute kidney injury Current Visit: Yes Status: Acute Likely LUCY. Less likely related to vancomycin administration. Renal function stable. Continue to trend. Dose-adjust antibiotics. Avoid nephrotoxins as able. 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 ABIs completed 07/16/17 showed moderate disease in the RLE and severe disease in the LLE. Vascular surgery consulted. Status post angiogram with right popliteal arthrectomy with angioplasty 07/17/[address] Bernard. LLE intervention on hold at this point. Continue wound care per podiatry's recommendations. (6) Weakness generalized Current Visit: Yes Status: Acute Improved. Encouraged patient to participate in PT/OT sessions. (7) Elevated troponin Current Visit: Yes Status: Resolved Likely secondary to demand ischemia. Status post [facility] 07/23/17 - no intervention, medical management only. Management per the primary team. 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 Vascular surgery consulted and following. Status post RLE popliteal arthrectomy with balloon angioplasty 07/17/[address] Bernard. (9) Atherosclerosis of enterprise arteries of left leg with ulceration of other part of foot Current Visit: Yes Status: Chronic CLIFF showed severe LLE disease. Vascular surgery consulted and following. Per Vascular, will likely require further LLE intervention/surgery at a later date, but on hold for now. (10) Pressure ulcer of left heel, unstageable Current Visit: Yes Status: Acute Likely multifactorial: pressure ulcer + arterial insufficiency. Podiatry consulted and following. CT scan/XR negative for OM. ESR and CRP markedly elevated. MRI shows possible early OM vs. reactive osteitis. Status post I & D 07/25/[address] Roque. Intra-operative cultures grew Shewanella and MRSA. Operative note reviewed. No gross evidence of OM, but debridement only down to fascia. Discussed with ARPITA Tinajero. Given the markedly elevated ESR and CRP, high index of suspicion for osteomyelitis. Continue wound care per podiatry. Continue antibiotics as above. (11) Anemia Current Visit: Yes Status: Chronic Etiology unclear. No acute bleeding noted on exam. Hemoglobin stable. Further workup and management per the primary team. Qualifiers: Anemia type: unspecified type Qualified Code(s): D64.9 - Anemia, unspecified (12) Diabetes Current Visit: Yes Status: Chronic Patient reports he has not been taking his diabetic medications for two years. HgbA1C 9%. Recommend aggressive glucose monitoring and control to promote wound healing and prevent re-infection. 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 mellitus fci insulin use: without fci use Qualified Code( s): E11.621 - Type 2 diabetes mellitus with foot ulcer; L97.509 - Non-pressure chronic ulcer of other part of unspecified foot with unspecified severity; L97.509 - Non-pressure chronic ulcer of other part of unspecified foot with unspecified severity; L97.509 - Non-pressure chronic ulcer of other part of unspecified foot with unspecified severity; L97.509 - Non-pressure chronic ulcer of other part of unspecified foot with unspecified severity (13) Abdominal pain Current Visit: Yes Status: Resolved Resolved. Qualifiers: Abdominal location: upper abdomen, unspecified Qualified Code(s): R10.10 - Upper abdominal pain, unspecified - Subjective Interval history: Patient seen and examined. Weekend notes reviewed. Patient sitting up in the chair. States he feels okay today. No acute events noted overnight. Complains of mild pain in his feet, but otherwise denies pain. Denies fevers, chills, or rigors. Denies chest pain or shortness of breath, or cough. Denies diarrhea, nausea, vomiting, or abdominal pain. Patient denies urinary symptoms. States he ate most of his breakfast this morning. Infect Dis PN-Objective Data - Labs CBC & Chem 7: 08/05/17 06:05 08/05/17 06:05 Labs: Laboratory Results - last 24 hr 08/04/17 08/04/17 08/05/17 16:15 20:53 06:05 WBC 14.0 H RBC 3.00 L Hgb 8.6 L Hct 28.3 L MCV 94.3 MCH 28.7 MCHC 30.4 L RDW 17.6 H Plt Count 276 MPV 11.6 Immature Gran % 0.4 Seg Neutrophils % 80.8 Lymphocytes % 8.1 Monocytes % 9.9 Eosinophils % 0.3 Basophils % 0.5 Neutrophils # 11.3 H Lymphocytes # 1.1 Monocytes # 1.4 H Eosinophils # 0.0 Basophils # 0.1 Sodium Potassium Chloride Carbon Dioxide BUN Creatinine Est GFR ( Amer) Est GFR (Non-Af Amer) BUN/Creatinine Ratio Glucose POC Glucose 105 H 159 H Calculated Osmolality Calcium 08/05/17 06:05 WBC RBC Hgb Hct MCV MCH MCHC RDW Plt Count MPV Immature Gran % Seg Neutrophils % Lymphocytes % Monocytes % Eosinophils % Basophils % Neutrophils # Lymphocytes # Monocytes # Eosinophils # Basophils # Sodium 146 H Potassium 4.2 Chloride 106 Carbon Dioxide 33 H BUN 32 H Creatinine 1.22 Est GFR ( Amer) > 60 Est GFR (Non-Af Amer) 58 L BUN/Creatinine Ratio 26 Glucose 84 POC Glucose Calculated Osmolality 308 H Calcium 8.6 Cultures: Cultures 07/25/17 14:58 Anaerobic Culture - Final Left Foot No anaerobes were recovered. 07/25/17 14:58 Surgical Biopsy Culture - Final Left Foot Shewanella putrefaciens Methicillin Resistant S.aureus Berna lipolytica 07/18/17 16:31 Blood Culture - Final Peripheral Venipuncture No growth. 07/18/17 16:31 Blood Culture - Final Peripheral Venipuncture No growth. 07/16/17 16:55 Wound Culture - Final Left Foot Proteus mirabilis Klebsiella oxytoca Enterococcus faecalis Serology 07/16/17 Range/Units 12:45 Urine Color Yellow (Yellow) Urine Clarity Cloudy A (Clear) Urine pH 5.5 (5.0-8.0) pH Units Ur Specific [place] 1.030 H (1.010-1.025) Urine Protein >=300 H (Neg-Trace) mg/dL Urine Glucose (UA) 250 H (Normal) mg/dL Urine Ketones Negative (Negative) mg/dL Urine Blood Negative (Negative) Urine Nitrite Negative (Negative) Urine Bilirubin Small H (Negative) Urine Urobilinogen Normal (Normal) mg/dL Ur Leukocyte Esterase Negative (Negative) Urine Microscopic RBC 5-15 H (0-3) per hpf Urine Microscopic WBC 5-15 H (0-3) per hpf Ur Squamous Epith Cells Many H (None-Few) per lpf Urine Bacteria None Seen (None-Few) per hpf Hyaline Casts None Seen (None-Few) per lpf Ur Culture Indicated? NO (NO) Exam - Constitutional Vitals: Temp Pulse Resp BP Pulse Ox 97.8 F 63 18 131/64 90 08/05/17 11:26 08/05/17 11:26 08/05/17 11:26 08/05/17 11:26 08/05/17 11:26 General appearance: average body habitus, cooperative, no acute distress - Head Head exam: Present: atraumatic, normal inspection, normocephalic - Eye Eye exam: Present: EOMI, normal appearance, PERRL Pupils: Present: normal accommodation - ENT ENT exam: Present: mucous membranes moist - Neck Neck exam: Present: normal inspection - Respiratory Respiratory exam: Present: CTAB. Absent: rales, respiratory distress, rhonchi, wheezes - Cardiovascular Cardiovascular exam: Present: RRR, +S1, +S2 - GI/Abdominal GI/Abdominal exam: Present: normal bowel sounds, soft. Absent: distended, tenderness - Extremities Exam Extremities exam: Present: pedal edema (1+ BLE), tenderness (bilateral feet) Additional comments: Bilateral foot dressings C/D/I. - Back Exam Back exam: Present: normal inspection. Absent: paraspinal tenderness, vertebral tenderness - Neurological Exam Neurological exam: Present: alert, oriented X3, no focal deficits - Psychiatric Psychiatric exam: Present: normal affect, normal mood - Skin Skin exam: Present: dry, intact, normal color, warm Consult Discharge Plan - Plan Additional Instructions: RISK FACTORS: STOP SMOKING: If you smoke, STOP. Smoking or tobacco use significantly increases your risk of heart disease because nicotine causes the arteries to narrow or constrict. It also causes fats to stick to the artery. Your chances of having a heart attack are greatly increased if you continue to smoke. For more information, call the education line for smoking cessation 8-320-IBDBRZT EAT A LOW FAT/CHOLESTEROL/SODIUM DIET: This diet may help reduce your chances of having a heart attack. LIFTING: Avoid lifting anything more than 10 pounds for 5-7 days Prior to straining, laughing, sneezing and/or coughing, apply manual pressure directly over insertion site. ACTIVITY: You may walk or climb stairs as tolerated You can resume sexual activity as tolerated In general, you are encouraged to engage in a minimum of 30 minutes or more of moderate intensity physical activity, such as brisk walking, daily or at least 3 -4 times weekly BATHING Do not submerge the site into water (bath tub, hot tub, swimming pool) for 1 week. This can be a source for infection into the blood stream. You may shower after 24 hours SITE CARE: After 24 hours, you may remove the dressing and leave the site open to air. Keep the site clean and dry. Clean gently and pat dry. You can expect bruising and tenderness that gradually resolve within a week or two. Return to work as instructed per your physician Resume driving as instructed per physician Keep all scheduled follow up appointments Resume medications as instructed IMPORTANT: If prescribed a Platelet Aggregation Inhibitor such as, Plavix, Brilinta or Effient: Duration of therapy is minimum one year These medications are often used in combination with Aspirin in prevention of future heart attacks Never discontinue unless consult with your Cob Sawyer STROKE (CVA) Risk factors for a stroke are: Age, cigarette smoking, diabetes, excessive alcohol consumption, family history, high blood pressure, overweight, physical inactivity, prior stroke, heart attack, diagnosis of carotid artery stenosis or other artery disease. Warning signs: Sudden numbness or weakness of the face, arm or leg; especially on one side of the body, sudden confusion, trouble speaking or understanding, sudden trouble seeing in one or both eyes, sudden trouble walking, dizziness, loss of balance or coordination, sudden severe headache with no cause. Call 911 or go to the Emergency Room. CONGESTIVE HEART FAILURE: If you have been diagnosed with Congestive Heart Failure (CHF) and your symptoms return, make an appointment with your physician Weigh yourself daily. Notify your physician if you have a weight gain of two or more pounds in one day or five or more pounds in one week. If you experience any difficulty breathing, please call 911 BLEEDING: Although the risk of bleeding is minimal, it can happen. If you have any bleeding from the site, apply firm pressure above the puncture site for 10-15 minutes. If the bleeding does not stop, continue manual pressure and call 911 Contact your physician if: You develop a fever greater than 101 degrees Fahrenheit Your site becomes reddened or has any drainage You have an increase in pain or burning at the site or if a large knot forms at the site. If you experience chest pain, shortness of breath, dizziness, or extreme tiredness, stop the activity and rest. Please notify your physicians office if you experience any of these symptoms and they are not relieved by rest please call 911! Referrals: Tanvi Ulloa DO [Partnered Physician] - 08/06/17 9:30 am Jack Bernard MD [Partnered Physician] - 08/07/17 1:00 pm (1 WEEK AFTER DISCHARGE)
[2017-08-05] MEDS: Insulin DETEMIR 100 UNIT/ML X5UNITS SQ SCH (22:03)
[2017-08-06 05:46] LABS: Basophils % 0.3 %; Eosinophils % 0.3 %; Hemoglobin 8.3 g/dL (12.9-16.9); Immature Granulocytes % 0.9 % (0-4); Immature Platelets 7.2 % (1.1-6.1); Lymphocytes # 0.8 K/mcL (0.6-4.6); Lymphocytes % 6.3 %; Mean Corpuscular HGB Conc 30.7 g/dL (31.6-35.5); Mean Corpuscular Hemoglobin 28.5 pg (28.0-33.3); Mean Corpuscular Volume 92.8 fL (83.0-100.0); Mean Platelet Volume 11.7 fL (9.4-12.4); Monocytes # 1.1 K/mcL (0.0-1.3); Neutrophils # 11.1 K/mcL (1.6-8.9); Platelet Count 232 K/mcL (140-400); Red Blood Count 2.91 M/mcL (4.19-5.50); Red Cell Distribution Width 17.5 % (11.5-14.5); Segmented Neutrophils % 84.2 %
[2017-08-06 06:17] LABS: BUN/Creatinine Ratio 30 (6-26); Blood Urea Nitrogen 32 mg/dL (8-26); Calcium 8.6 mg/dL (8.6-10.8); Carbon Dioxide 30 mEq/L (19-29); Chloride 107 mEq/L (98-109); Glucose 97 mg/dL (70-99); Osmolality,Calculated 309 (280-300); Sodium 146 mEq/L (136-145); eGFR For African Americans > 60 (> 60); eGFR For Non-African Americans > 60 (> 60)
[2017-08-06] MEDS: *HR* Heparin 5,000 UNIT/ML VIAL SQ SCH ×3 (06:36→20:44)
[2017-08-06] MEDS: Zinc Sulfate 220 MG CAPSULE PO SCH (09:20)
[2017-08-06] MEDS: Multivit/Ca/Min/Fe/FA 1 TAB TABLET PO SCH (09:20)
[2017-08-06] MEDS: Ascorbic Acid 500 MG TABLET PO SCH ×2 (09:20→20:44)
[2017-08-06] MEDS: Aspirin 325 MG TABLET PO SCH (09:20)
[2017-08-06] MEDS: Magnesium Oxide 400 MG TABLET PO SCH (09:20)
[2017-08-06] MEDS: Sennosides/Docusate Sodium TABLET PO SCH ×2 (09:21→20:44)
[2017-08-06] MEDS: amLODIPine 5 MG TABLET PO SCH (09:21)
[2017-08-06] MEDS: Isosorbide MONOnitrate (24 HR) 30 MG TAB.ER.24H PO SCH (09:21)
[2017-08-06] MEDS: Nystatin Cream 15 GM TUBE TP SCH (09:22)
[2017-08-06] MEDS: Insulin LISPRO 300 UNITS/3 ML VIAL SQ SCH ×7 (09:25→21:42)
[2017-08-06] MEDS ORDERED: *HR* OxyCODONE Immed Rel 5 MG TABLET PO PRN (15:18)
--- NOTE | 2017-08-06 17:00 | Internal Med Progress Note ---
Date of Encounter: 08/06/17 Time of Encounter: 11:00 - Assessment and plan (1) Pressure ulcer of left heel, unstageable Current Visit: Yes Status: Acute Assessment and plan: -Podiatry following with incision drainage and debridement multiple areas left foot -Swab cultures of left heel wound with tissue cultures are growing multiple organisms -Repeat blood cultures negative -Patient with persistent leukocytosis but afebrile. -MRI of the left foot shows findings consistent with early osteomyelitis vs. reactive osteitis. Given the markedly elevated inflammatory markers, concern for early osteomyelitis. Status post I & D of the left heel. Operative report reviewed. No evidence of osteomyelitis intra-op, but debridment was only taken down to the fascia. Cultures were obtained and are growing Shewanella and MRSA. -Given the markedly elevated inflammatory markers, high index of suspicion that there is osteomyelitis. The patient would likely benefit from 4-6 weeks of IV antibiotics. -Infectious disease recommendations for IV Vancomycin to treat the hand Levaquin 750mg IV daily to treat the Shewanella. Duration of treatment 4-6 weeks of IV antibiotics. (2) Sepsis Current Visit: Yes Status: Resolved Assessment and plan: -Sepsis has resolved and was suspected to be secondary to bacteremia which has also resolved due to left foot infection. Qualifiers: Sepsis type: sepsis due to unspecified organism Qualified Code(s): A41.9 - Sepsis, unspecified organism (3) Bacteremia Current Visit: Yes Status: Resolved Assessment and plan: -Bacteremia has resolved; suspect was contamination, and also possibly secondary to infected foot ulcers Blood cultures drawn 07/15/17 were positive 1/2 sets for anaerobic GNR. Most likely a contaminant given that only 1/2 sets is positive. Repeat blood cultures drawn 07/18/17 are negative x 2 sets. 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 Patient does have 1+ pitting pedal edema bilaterally. Echo showed LVEF 35-40%, Moderate global and segmental left ventricular systolic dysfunction, Moderate pulmonary hypertension, Moderate-severe pulmonic regurgitation I/O net positive, 2.3L, continue fluid restriction, BB Continue to Hold ACEI/Lasix due to proior YUMIKO Qualifiers: Congestive heart failure type: systolic Congestive heart failure chronicity : acute on chronic Qualified Code(s): I50.23 - Acute on chronic systolic ( congestive) heart failure (6) Elevated troponin Current Visit: Yes Status: Resolved Assessment and plan: -Likely due to demand ischemia due to underlying sepsis. -Cardiology with recommendation for a cardiac catheter which was done on and showed moderate two-vessel coronary arterial disease. -Recommendations for optical medical therapy and aggressive risk factor modifications. (7) Diabetes Current Visit: Yes Status: Chronic Assessment and plan: -Blood glucose controlled; continue current medical management 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 mellitus penitentiary insulin use: without penitentiary use Qualified Code( s): E11.621 - Type 2 diabetes mellitus with foot ulcer; L97.509 - Non-pressure chronic ulcer of other part of unspecified foot with unspecified severity; L97.509 - Non-pressure chronic ulcer of other part of unspecified foot with unspecified severity; L97.509 - Non-pressure chronic ulcer of other part of unspecified foot with unspecified severity; L97.509 - Non-pressure chronic ulcer of other part of unspecified foot with unspecified severity (8) HTN (hypertension) Current Visit: Yes Status: Chronic Assessment and plan: Blood pressure controlled; continue current regimen Qualifiers: Hypertension type: essential hypertension Qualified Code(s): I10 - Essential (primary) hypertension (9) HLD (hyperlipidemia) Current Visit: Yes Status: Chronic Assessment and plan: Continue Statin. Qualifiers: Hyperlipidemia type: unspecified Qualified Code(s): E78.5 - Hyperlipidemia , unspecified (10) Anemia Current Visit: Yes Status: Chronic Assessment and plan: -H&H stable -No acute bleeding reported at this time -Continue to monitor Qualifiers: Anemia type: unspecified type Qualified Code(s): D64.9 - Anemia, unspecified (11) Atherosclerosis of [place] arteries of right leg with ulceration of other part of foot Current Visit: Yes Status: Chronic Assessment and plan: Vascular surgery on board. Patient has significant vascular disease in B/L LE. Underwent right popliteal angioplasty and atherectomy. Plan for left leg revascularization procedure. - Subjective Interval history: No acute events overnight. - Constitutional Vitals: Temp Pulse Resp BP Pulse Ox 97.7 F 68 17 155/75 98 08/06/17 16:02 08/06/17 16:02 08/06/17 16:02 08/06/17 16:02 08/06/17 16:02 General appearance: Present: cooperative, A&O X 3, pleasant, no acute distress, answers questions appropriately - Respiratory Respiratory exam: Present: CTAB. Absent: accessory muscle use, rales, rhonchi, wheezes - Cardiovascular Cardiovascular exam: Present: RRR, +S1, +S2. Absent: diastolic murmur, gallop, rubs, systolic murmur Internal Medicine: Result - Labs CBC & Chem 7: 08/06/17 05:00 08/06/17 05:00 Labs: Short CBC 08/06/17 Range/Units 05:00 WBC 13.2 H (4.3-11.1) K/mcL Hgb 8.3 L (12.9-16.9) g/dL Hct 27.0 L (37.5-50.1) % Plt Count 232 (140-400) K/mcL Neutrophils # 11.1 H (1.6-8.9) K/mcL BMP 08/06/17 05:00 Sodium 146 H Potassium 4.0 Chloride 107 Carbon Dioxide 30 H BUN 32 H Creatinine 1.06 Glucose 97 Calcium 8.6 - ABG Interpretation ABG results: PT/INR, D-dimer PT 12.5 Seconds (9.4-12.1) H 07/16/17 01:45 Consult Discharge Plan - Plan Additional Instructions: RISK FACTORS: STOP SMOKING: If you smoke, STOP. Smoking or tobacco use significantly increases your risk of heart disease because nicotine causes the arteries to narrow or constrict. It also causes fats to stick to the artery. Your chances of having a heart attack are greatly increased if you continue to smoke. For more information, call the education line for smoking cessation 6-257-ZNNMOEA EAT A LOW FAT/CHOLESTEROL/SODIUM DIET: This diet may help reduce your chances of having a heart attack. LIFTING: Avoid lifting anything more than 10 pounds for 5-7 days Prior to straining, laughing, sneezing and/or coughing, apply manual pressure directly over insertion site. ACTIVITY: You may walk or climb stairs as tolerated You can resume sexual activity as tolerated In general, you are encouraged to engage in a minimum of 30 minutes or more of moderate intensity physical activity, such as brisk walking, daily or at least 3 -4 times weekly BATHING Do not submerge the site into water (bath tub, hot tub, swimming pool) for 1 week. This can be a source for infection into the blood stream. You may shower after 24 hours SITE CARE: After 24 hours, you may remove the dressing and leave the site open to air. Keep the site clean and dry. Clean gently and pat dry. You can expect bruising and tenderness that gradually resolve within a week or two. Return to work as instructed per your physician Resume driving as instructed per physician Keep all scheduled follow up appointments Resume medications as instructed IMPORTANT: If prescribed a Platelet Aggregation Inhibitor such as, Plavix, Brilinta or Effient: Duration of therapy is minimum one year These medications are often used in combination with Aspirin in prevention of future heart attacks Never discontinue unless consult with your [employer] STROKE (CVA) Risk factors for a stroke are: Age, cigarette smoking, diabetes, excessive alcohol consumption, family history, high blood pressure, overweight, physical inactivity, prior stroke, heart attack, diagnosis of carotid artery stenosis or other artery disease. Warning signs: Sudden numbness or weakness of the face, arm or leg; especially on one side of the body, sudden confusion, trouble speaking or understanding, sudden trouble seeing in one or both eyes, sudden trouble walking, dizziness, loss of balance or coordination, sudden severe headache with no cause. Call 911 or go to the Emergency Room. CONGESTIVE HEART FAILURE: If you have been diagnosed with Congestive Heart Failure (CHF) and your symptoms return, make an appointment with your physician Weigh yourself daily. Notify your physician if you have a weight gain of two or more pounds in one day or five or more pounds in one week. If you experience any difficulty breathing, please call 911 BLEEDING: Although the risk of bleeding is minimal, it can happen. If you have any bleeding from the site, apply firm pressure above the puncture site for 10-15 minutes. If the bleeding does not stop, continue manual pressure and call 911 Contact your physician if: You develop a fever greater than 101 degrees Fahrenheit Your site becomes reddened or has any drainage You have an increase in pain or burning at the site or if a large knot forms at the site. If you experience chest pain, shortness of breath, dizziness, or extreme tiredness, stop the activity and rest. Please notify your physicians office if you experience any of these symptoms and they are not relieved by rest please call 911! Referrals: Tanvi Ulloa DO [Partnered Physician] - 08/06/17 9:30 am (patient will go back to [facility]) Jack Bernard MD [Partnered Physician] - 08/07/17 1:00 pm (1 WEEK AFTER DISCHARGE)
[2017-08-06] MEDS: Vancomycin 1,250 MG in D5% in Water 250 ML IVPB SCH (18:50)
[2017-08-06] MEDS: Levofloxacin 750 MG/150 ML 750 MG/150 ML BAG IVPB SCH (18:50)
[2017-08-06] MEDS: Insulin DETEMIR 100 UNIT/ML X5UNITS SQ SCH (20:44)
[2017-08-07] MEDS: Nystatin Cream 15 GM TUBE TP SCH ×2 (00:47→11:57)
[2017-08-07] MEDS: *HR* Heparin 5,000 UNIT/ML VIAL SQ SCH ×2 (06:37→12:28)
[2017-08-07] MEDS: Vancomycin 1,250 MG in D5% in Water 250 ML IVPB SCH (06:37)
[2017-08-07] MEDS: Insulin LISPRO 300 UNITS/3 ML VIAL SQ SCH ×6 (09:11→17:39)
[2017-08-07] MEDS: amLODIPine 5 MG TABLET PO SCH (09:26)
[2017-08-07] MEDS: Aspirin 325 MG TABLET PO SCH (09:26)
[2017-08-07] MEDS: Sennosides/Docusate Sodium TABLET PO SCH (09:26)
[2017-08-07] MEDS: Ascorbic Acid 500 MG TABLET PO SCH (09:26)
[2017-08-07] MEDS: Isosorbide MONOnitrate (24 HR) 30 MG TAB.ER.24H PO SCH (09:27)
[2017-08-07] MEDS: Multivit/Ca/Min/Fe/FA 1 TAB TABLET PO SCH (09:27)
[2017-08-07] MEDS: Magnesium Oxide 400 MG TABLET PO SCH (09:27)
[2017-08-07] MEDS: Zinc Sulfate 220 MG CAPSULE PO SCH (09:27)
[2017-08-07 15:54] VITALS: BP 125/49
--- NOTE | 2017-08-07 16:28 | Internal Med Progress Note ---
Date of Encounter: 08/07/17 Time of Encounter: 11:00 - Assessment and plan (1) Pressure ulcer of left heel, unstageable Current Visit: Yes Status: Acute Assessment and plan: -Podiatry following with incision drainage and debridement multiple areas left foot -Swab cultures of left heel wound with tissue cultures are growing multiple organisms -Repeat blood cultures negative -Patient with persistent leukocytosis but afebrile. -MRI of the left foot shows findings consistent with early osteomyelitis vs. reactive osteitis. Given the markedly elevated inflammatory markers, concern for early osteomyelitis. Status post I & D of the left heel. Operative report reviewed. No evidence of osteomyelitis intra-op, but debridment was only taken down to the fascia. Cultures were obtained and are growing Shewanella and MRSA. -Given the markedly elevated inflammatory markers, high index of suspicion that there is osteomyelitis. The patient would likely benefit from 4-6 weeks of IV antibiotics. -Infectious disease recommendations for IV Vancomycin to treat the hand Levaquin 750mg IV daily to treat the Shewanella. Duration of treatment 4-6 weeks of IV antibiotics. (2) Sepsis Current Visit: Yes Status: Resolved Assessment and plan: -Sepsis has resolved and was suspected to be secondary to bacteremia which has also resolved due to left foot infection. Qualifiers: Sepsis type: sepsis due to unspecified organism Qualified Code(s): A41.9 - Sepsis, unspecified organism (3) Bacteremia Current Visit: Yes Status: Resolved Assessment and plan: -Bacteremia has resolved; suspect was contamination, and also possibly secondary to infected foot ulcers Blood cultures drawn 07/15/17 were positive 1/2 sets for anaerobic GNR. Most likely a contaminant given that only 1/2 sets is positive. Repeat blood cultures drawn 07/18/17 are negative x 2 sets. 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 Patient does have 1+ pitting pedal edema bilaterally. Echo showed LVEF 35-40%, Moderate global and segmental left ventricular systolic dysfunction, Moderate pulmonary hypertension, Moderate-severe pulmonic regurgitation I/O net positive, 2.3L, continue fluid restriction, BB Continue to Hold ACEI/Lasix due to proior YUMIKO Qualifiers: Congestive heart failure type: systolic Congestive heart failure chronicity : acute on chronic Qualified Code(s): I50.23 - Acute on chronic systolic ( congestive) heart failure (6) Elevated troponin Current Visit: Yes Status: Resolved Assessment and plan: -Likely due to demand ischemia due to underlying sepsis. -Cardiology with recommendation for a cardiac catheter which was done on and showed moderate two-vessel coronary arterial disease. -Recommendations for optical medical therapy and aggressive risk factor modifications. (7) Diabetes Current Visit: Yes Status: Chronic Assessment and plan: -Blood glucose controlled; continue current medical management 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 mellitus fci insulin use: without fci use Qualified Code( s): E11.621 - Type 2 diabetes mellitus with foot ulcer; L97.509 - Non-pressure chronic ulcer of other part of unspecified foot with unspecified severity; L97.509 - Non-pressure chronic ulcer of other part of unspecified foot with unspecified severity; L97.509 - Non-pressure chronic ulcer of other part of unspecified foot with unspecified severity; L97.509 - Non-pressure chronic ulcer of other part of unspecified foot with unspecified severity (8) HTN (hypertension) Current Visit: Yes Status: Chronic Assessment and plan: Blood pressure controlled; continue current regimen Qualifiers: Hypertension type: essential hypertension Qualified Code(s): I10 - Essential (primary) hypertension (9) HLD (hyperlipidemia) Current Visit: Yes Status: Chronic Assessment and plan: Continue Statin. Qualifiers: Hyperlipidemia type: unspecified Qualified Code(s): E78.5 - Hyperlipidemia , unspecified (10) Anemia Current Visit: Yes Status: Chronic Assessment and plan: -H&H stable -No acute bleeding reported at this time -Continue to monitor Qualifiers: Anemia type: unspecified type Qualified Code(s): D64.9 - Anemia, unspecified (11) Atherosclerosis of [place] arteries of right leg with ulceration of other part of foot Current Visit: Yes Status: Chronic Assessment and plan: Vascular surgery on board. Patient has significant vascular disease in B/L LE. Underwent right popliteal angioplasty and atherectomy. Plan for left leg revascularization procedure. - Subjective Interval history: No acute events overnight. - Constitutional Vitals: Temp Pulse Resp BP Pulse Ox 94.4 F L 65 16 125/49 98 08/07/17 15:47 08/07/17 15:47 08/07/17 15:47 08/07/17 15:47 08/07/17 15:47 General appearance: Present: cooperative, A&O X 3, pleasant, no acute distress, answers questions appropriately - Respiratory Respiratory exam: Present: CTAB. Absent: accessory muscle use, rales, rhonchi, wheezes - Cardiovascular Cardiovascular exam: Present: RRR, +S1, +S2. Absent: diastolic murmur, gallop, rubs, systolic murmur Internal Medicine: Result - Labs CBC & Chem 7: 08/06/17 05:00 08/06/17 05:00 - ABG Interpretation ABG results: PT/INR, D-dimer PT 12.5 Seconds (9.4-12.1) H 07/16/17 01:45 Consult Discharge Plan - Plan Additional Instructions: RISK FACTORS: STOP SMOKING: If you smoke, STOP. Smoking or tobacco use significantly increases your risk of heart disease because nicotine causes the arteries to narrow or constrict. It also causes fats to stick to the artery. Your chances of having a heart attack are greatly increased if you continue to smoke. For more information, call the education line for smoking cessation 8-769-QMBXERK EAT A LOW FAT/CHOLESTEROL/SODIUM DIET: This diet may help reduce your chances of having a heart attack. LIFTING: Avoid lifting anything more than 10 pounds for 5-7 days Prior to straining, laughing, sneezing and/or coughing, apply manual pressure directly over insertion site. ACTIVITY: You may walk or climb stairs as tolerated You can resume sexual activity as tolerated In general, you are encouraged to engage in a minimum of 30 minutes or more of moderate intensity physical activity, such as brisk walking, daily or at least 3 -4 times weekly BATHING Do not submerge the site into water (bath tub, hot tub, swimming pool) for 1 week. This can be a source for infection into the blood stream. You may shower after 24 hours SITE CARE: After 24 hours, you may remove the dressing and leave the site open to air. Keep the site clean and dry. Clean gently and pat dry. You can expect bruising and tenderness that gradually resolve within a week or two. Return to work as instructed per your physician Resume driving as instructed per physician Keep all scheduled follow up appointments Resume medications as instructed IMPORTANT: If prescribed a Platelet Aggregation Inhibitor such as, Plavix, Brilinta or Effient: Duration of therapy is minimum one year These medications are often used in combination with Aspirin in prevention of future heart attacks Never discontinue unless consult with your [employer] STROKE (CVA) Risk factors for a stroke are: Age, cigarette smoking, diabetes, excessive alcohol consumption, family history, high blood pressure, overweight, physical inactivity, prior stroke, heart attack, diagnosis of carotid artery stenosis or other artery disease. Warning signs: Sudden numbness or weakness of the face, arm or leg; especially on one side of the body, sudden confusion, trouble speaking or understanding, sudden trouble seeing in one or both eyes, sudden trouble walking, dizziness, loss of balance or coordination, sudden severe headache with no cause. Call 911 or go to the Emergency Room. CONGESTIVE HEART FAILURE: If you have been diagnosed with Congestive Heart Failure (CHF) and your symptoms return, make an appointment with your physician Weigh yourself daily. Notify your physician if you have a weight gain of two or more pounds in one day or five or more pounds in one week. If you experience any difficulty breathing, please call 911 BLEEDING: Although the risk of bleeding is minimal, it can happen. If you have any bleeding from the site, apply firm pressure above the puncture site for 10-15 minutes. If the bleeding does not stop, continue manual pressure and call 911 Contact your physician if: You develop a fever greater than 101 degrees Fahrenheit Your site becomes reddened or has any drainage You have an increase in pain or burning at the site or if a large knot forms at the site. If you experience chest pain, shortness of breath, dizziness, or extreme tiredness, stop the activity and rest. Please notify your physicians office if you experience any of these symptoms and they are not relieved by rest please call 911! Referrals: Tanvi Ulloa DO [Partnered Physician] - 08/06/17 9:30 am (patient will go back to [facility]) Jack Bernard MD [Partnered Physician] - 08/07/17 1:00 pm (1 WEEK AFTER DISCHARGE)
--- NOTE | 2017-08-07 16:58 | Discharge Summary ---
Date of Encounter: 08/07/17 Time of Encounter: 11:00 - Discharge Diagnosis (1) Pressure ulcer of left heel, unstageable Priority: Primary Status: Acute (2) Sepsis Priority: Primary Status: Resolved Qualifiers: Sepsis type: sepsis due to unspecified organism Qualified Code(s): A41.9 - Sepsis, unspecified organism (3) Bacteremia Priority: Primary Status: Resolved (4) Acute kidney injury Priority: Secondary Status: Resolved (5) CHF (congestive heart failure) Priority: Secondary Status: Chronic Qualifiers: Congestive heart failure type: systolic Congestive heart failure chronicity : acute on chronic Qualified Code(s): I50.23 - Acute on chronic systolic ( congestive) heart failure (6) Elevated troponin Priority: Secondary Status: Resolved (7) Diabetes Priority: Secondary Status: Chronic 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 mellitus care home insulin use: without care home use Qualified Code( s): E11.621 - Type 2 diabetes mellitus with foot ulcer; L97.509 - Non-pressure chronic ulcer of other part of unspecified foot with unspecified severity; L97.509 - Non-pressure chronic ulcer of other part of unspecified foot with unspecified severity; L97.509 - Non-pressure chronic ulcer of other part of unspecified foot with unspecified severity; L97.509 - Non-pressure chronic ulcer of other part of unspecified foot with unspecified severity (8) HTN (hypertension) Priority: Secondary Status: Chronic Qualifiers: Hypertension type: essential hypertension Qualified Code(s): I10 - Essential (primary) hypertension (9) HLD (hyperlipidemia) Priority: Secondary Status: Chronic Qualifiers: Hyperlipidemia type: unspecified Qualified Code(s): E78.5 - Hyperlipidemia , unspecified (10) Anemia Priority: Secondary Status: Chronic Qualifiers: Anemia type: unspecified type Qualified Code(s): D64.9 - Anemia, unspecified (11) Atherosclerosis of [place] arteries of right leg with ulceration of other part of foot Priority: Primary Status: Chronic - Discharge Medications Prescriptions: OxyCODONE Immed Rel [Roxicodone 5 MG] 10 mg PO Q8HR PRN #10 tablet PRN Reason: Severe Pain (7-10) Home Medications: Aspirin 325 mg PO DAILY tablet 08/07/17 [Rx] Atorvastatin [Lipitor] 40 mg PO HS tablet 08/07/17 [Rx] Carvedilol [Coreg] 25 mg PO BIDWM tablet 08/07/17 [Rx] Clopidogrel [Plavix] 75 mg PO DAILY tablet 08/07/17 [Rx] Furosemide [Lasix] 40 mg PO DAILY tablet 08/07/17 [Rx] Lisinopril [Zestril] 2.5 mg PO DAILY tablet 08/07/17 [Rx] Magnesium Oxide [Mag-Ox] 400 mg PO DAILY tablet 08/07/17 [Rx] Nitroglycerin 0.4 mg SL Q5MIN PRN tab.subl 08/07/17 [Rx] Nystatin Cream [Mycostatin Cream] 1 appl TP BID tube 08/07/17 [Rx] Omeprazole [PriLOSEC] 20 mg PO DAILY@0630 capsule.dr 08/07/17 [Rx] OxyCODONE Immed Rel [Roxicodone 5 MG] 10 mg PO Q8HR PRN #10 tablet 08/07/17 [Rx] Potassium Chloride 20 meq PO DAILY tab.er.prt 08/07/17 [Rx] Zinc Sulfate 220 mg PO DAILY capsule 08/07/17 [Rx] amLODIPine [Norvasc] 10 mg PO DAILY tablet 08/07/17 [Rx] Allergies/Adverse Reactions: 3 Allergy/AdvReac Type Severity Reaction Status Date / Time No Known Allergies Allergy Verified 07/03/15 17:42 Date of admission: 07/15/17 19:37 Primary care physician: Laureano Modi Jr, MD Consults: 07/15/17 19:46 Consult to Mannequin Coloring Artist [CONS] Routine Comment: Reason for Consult: Patient is non-compliant with insulin (hasn't taken it in over two years). Needs education regarding diet and insulin compliance, wound monitoring , etc. 07/15/17 20:09 Consult to Vascular Surgery [CONS] Routine Consulting Provider: V[facility] Reason for Consult: Patient has bilateral cellulitis of the feet, complicated with advanced stage decubitus ulcers. Feet are dark red with poor circulation. He states feet are too painful to place a sheet over. Patient is non-compliant diabetic who reports he has not taken insulin for two years due to cost. WBC currently 19.6. No home meds. Current BG is 160. CT of the bilateral feet ordered to assess for fluid collection/ abscesses. Pt. being treated with IV vanc and Zosyn. Receiving heparin for DVT prophylaxis. Call Completed: Yes 07/15/17 20:28 Consult to Podiatry [CONS] Routine Consulting Provider: [facility] Reason for Consult: Patient has bilateral cellulitis of the feet, complicated with advanced stage decubitus ulcers. Feet are dark red with poor circulation. He states feet are too painful to place a sheet over. Patient is non-compliant diabetic who reports he has not taken insulin for two years due to cost. WBC currently 19.6. No home meds. Current BG is 160. CT of the bilateral feet ordered to assess for fluid collection/ abscesses. Pt. being treated with IV vanc and Zosyn. Receiving heparin for DVT prophylaxis. 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 Smoking or tobacco use significantly increases your risk of heart disease because nicotine causes the arteries to narrow or constrict. It also causes fats to stick to the artery. Your chances of having a heart attack are greatly increased if you continue to smoke. For more information, call the education line for smoking cessation 2-481-LFUVGXA EAT A LOW FAT/CHOLESTEROL/SODIUM DIET: This diet may help reduce your chances of having a heart attack. LIFTING: Avoid lifting anything more than 10 pounds for 5-7 days Prior to straining, laughing, sneezing and/or coughing, apply manual pressure directly over insertion site. ACTIVITY: You may walk or climb stairs as tolerated You can resume sexual activity as tolerated In general, you are encouraged to engage in a minimum of 30 minutes or more of moderate intensity physical activity, such as brisk walking, daily or at least 3 -4 times weekly BATHING Do not submerge the site into water (bath tub, hot tub, swimming pool) for 1 week. This can be a source for infection into the blood stream. You may shower after 24 hours SITE CARE: After 24 hours, you may remove the dressing and leave the site open to air. Keep the site clean and dry. Clean gently and pat dry. You can expect bruising and tenderness that gradually resolve within a week or two. Return to work as instructed per your physician Resume driving as instructed per physician Keep all scheduled follow up appointments Resume medications as instructed IMPORTANT: If prescribed a Platelet Aggregation Inhibitor such as, Plavix, Brilinta or Effient: Duration of therapy is minimum one year These medications are often used in combination with Aspirin in prevention of future heart attacks Never discontinue unless consult with your [employer] STROKE (CVA) Risk factors for a stroke are: Age, cigarette smoking, diabetes, excessive alcohol consumption, family history, high blood pressure, overweight, physical inactivity, prior stroke, heart attack, diagnosis of carotid artery stenosis or other artery disease. Warning signs: Sudden numbness or weakness of the face, arm or leg; especially on one side of the body, sudden confusion, trouble speaking or understanding, sudden trouble seeing in one or both eyes, sudden trouble walking, dizziness, loss of balance or coordination, sudden severe headache with no cause. Call 911 or go to the Emergency Room. CONGESTIVE HEART FAILURE: If you have been diagnosed with Congestive Heart Failure (CHF) and your symptoms return, make an appointment with your physician Weigh yourself daily. Notify your physician if you have a weight gain of two or more pounds in one day or five or more pounds in one week. If you experience any difficulty breathing, please call 911 BLEEDING: Although the risk of bleeding is minimal, it can happen. If you have any bleeding from the site, apply firm pressure above the puncture site for 10-15 minutes. If the bleeding does not stop, continue manual pressure and call 911 Contact your physician if: You develop a fever greater than 101 degrees Fahrenheit Your site becomes reddened or has any drainage You have an increase in pain or burning at the site or if a large knot forms at the site. If you experience chest pain, shortness of breath, dizziness, or extreme tiredness, stop the activity and rest. Please notify your physicians office if you experience any of these symptoms and they are not relieved by rest please call 911! Hospital course: Patient is a 77 year old male with past medical history significant for COPD, CAD, diabetes, HLD, and HTN who presented to the ER on 07/15/17 with weakness and bilateral foot pain. Patient reported that his feet have been hurting intermittently for approximately 4 months. Patient reports of altered sensation in his lower extremities with what he described as burning and a tingling sensation making it hard for him to ambulate. Patient stated he has not taken insulin for approximately 2 years due to the cost. Patient reported that he lives by himself and unable to care for himself and currently has no support system. In the ER, x-ray of the left foot and left ankle showed soft tissue ulcer and left heel with diffuse soft tissue swelling consistent with cellulitis. Single view CXR today shows findings suggestive of congestive heart failure. Patient was found to have leukocytosis with a WBC of 19.6. Patient met sepsis criteria and was admitted to the medical floor for further management. During patients extensive hospital stay, he was treated with IV antibiotics for sepsis secondary to bacteremia which was thought to be caused by infected foot; infectious disease was consulted and followed with antibiotic recommendations. Repeat blood cultures were taken which were negative. Podiatry was also consulted and patient was taken to the OR for incision/ drainage and debridement of left foot. Due to suspicion of osteomyelitis, and duration from infectious disease to continue vancomycin and Levaquin for approximately 6 weeks. Patient was also found to have elevated cardiac biomarkers but was thought to be due to demand ischemia due to underlying sepsis. Cardiology was consulted with recommendation for a cardiac catheter which was done on 07/23/17 and showed moderate two-vessel coronary arterial disease. Further recommendations for optical medical therapy and aggressive risk factor modifications. Vascular surgery was also consulted for patients significant vascular disease in B/L LE. Underwent right popliteal angioplasty and atherectomy. Plan for left leg revascularization procedure for later date. Patient is medically stable for discharge to extended care facility for continued medical management of suspected osteomyelitis with a 6 week course of IV antibiotics. - Time Spent with Patient Total time spent providing and/or coordinating discharge services: Less than 30 minutes - Constitutional Vitals: Temp Pulse Resp BP Pulse Ox 94.4 F L 65 16 125/49 98 08/07/17 15:47 08/07/17 15:47 08/07/17 15:47 08/07/17 15:47 08/07/17 15:47 General appearance: Present: cooperative, A&O X 3, pleasant, no acute distress, answers questions appropriately - Respiratory Respiratory exam: Present: CTAB. Absent: accessory muscle use, rales, rhonchi, wheezes - Cardiovascular Cardiovascular exam: Present: RRR, +S1, +S2. Absent: diastolic murmur, gallop, rubs, systolic murmur
--- NOTE | 2017-08-07 16:59 | Physician Discharge Referral ---
ExtendedCare Referral Info Institutional Level of Care: Skilled - Diagnosis (1) Pressure ulcer of left heel, unstageable Status: Acute (2) Sepsis Status: Resolved (3) Bacteremia Status: Resolved (4) Acute kidney injury Status: Resolved (5) CHF (congestive heart failure) Status: Chronic (6) Elevated troponin Status: Resolved (7) Diabetes Status: Chronic (8) HTN (hypertension) Status: Chronic (9) HLD (hyperlipidemia) Status: Chronic (10) Anemia Status: Chronic (11) Atherosclerosis of [place] arteries of right leg with ulceration of other part of foot Status: Chronic - Transfer Medications Prescriptions: OxyCODONE Immed Rel [Roxicodone 5 MG] 10 mg PO Q8HR PRN #10 tablet PRN Reason: Severe Pain (7-10) Home Medications: Aspirin 325 mg PO DAILY tablet 08/07/17 [Rx] Atorvastatin [Lipitor] 40 mg PO HS tablet 08/07/17 [Rx] Carvedilol [Coreg] 25 mg PO BIDWM tablet 08/07/17 [Rx] Clopidogrel [Plavix] 75 mg PO DAILY tablet 08/07/17 [Rx] Furosemide [Lasix] 40 mg PO DAILY tablet 08/07/17 [Rx] Lisinopril [Zestril] 2.5 mg PO DAILY tablet 08/07/17 [Rx] Magnesium Oxide [Mag-Ox] 400 mg PO DAILY tablet 08/07/17 [Rx] Nitroglycerin 0.4 mg SL Q5MIN PRN tab.subl 08/07/17 [Rx] Nystatin Cream [Mycostatin Cream] 1 appl TP BID tube 08/07/17 [Rx] Omeprazole [PriLOSEC] 20 mg PO DAILY@0630 capsule.dr 08/07/17 [Rx] OxyCODONE Immed Rel [Roxicodone 5 MG] 10 mg PO Q8HR PRN #10 tablet 08/07/17 [Rx] Potassium Chloride 20 meq PO DAILY tab.er.prt 08/07/17 [Rx] Zinc Sulfate 220 mg PO DAILY capsule 08/07/17 [Rx] amLODIPine [Norvasc] 10 mg PO DAILY tablet 08/07/17 [Rx] Allergies/Adverse Reactions: 3 Allergy/AdvReac Type Severity Reaction Status Date / Time No Known Allergies Allergy Verified 07/03/15 17:42 - Respiratory Orders Smoking Cessation: Smoking cessation has been advised. For more information, call the [place] Tobacco Quit Line at 2-798-MPDJNOW. CERTIFICATION: I certify that the transfer of the above named patient to an Extended Care Facility is necessary for the continuing treatment of the diagnosis listed. The above information is true and accurate reflection of patient's current condition. Confidential - Redisclosure prohibited without a patient's written consent.
[2017-08-07] MEDS: Levofloxacin 750 MG/150 ML 750 MG/150 ML BAG IVPB SCH (17:38)
[2017-08-07] MEDS ORDERED: Vancomycin 1,250 MG in D5% in Water 250 ML IVPB SCH (18:00)
[2017-08-07] MEDS ORDERED: Aminoglycoside Consult 1 EACH MC ONE (19:14)
[2017-08-08] MEDS ORDERED: Vancomycin 1,250 MG in D5% in Water 250 ML IVPB SCH (06:00)
== END 2017-08-07 19:15 | DRG 853 ==
LOC: EMEROO 12:43 → 3BNU 12:43 → SUATTDRO 15:16 → 3BNU 15:55 → SUATTDRO 19:37 → 2NNU 07-17 10:43 → 2ANU 07-31 18:33
PROVIDERS: ADMIT Registered Nurse; ATTEND Hospitalist

== ENCOUNTER 2017-08-14 20:11 | Inpatient (IN) ==
[~2017-08-14 20:11] MED LIST: *HR* Atropine Sulfate 1 MG/10 ML SYRINGE IV ONE; *HR* EPINEPHrine 1 MG/10 ML SYRINGE IVP ONE; *HR* Midazolam HCl 2 MG/2 ML VIAL IV ONE; *HR* Rocuronium Bromide 50 MG/5 ML VIAL IVC ONE
[2017-08-14 20:34] LABS: ABG Base Excess 9 mEq/L (-2 to 3); ABG HCO3 39 mEq/L (21-27); ABG Oxygen Saturation 89 % (95-98); ABG PCO2 96 mmHg (35-45); ABG PH 7.21 pH Units (7.32-7.45); ABG PO2 72 mmHg (85-104); ABG TCO2 42 mEq/L (20-26)
[2017-08-14] MEDS ORDERED: 0.9 % Sodium Chloride 1,000 ML IVC ONE ×2 (20:44→21:41)
--- NOTE | 2017-08-14 20:52 | Emergency Department Note ---
Disposition Clinical Impression: Cardiac arrest, Septic shock Acute respiratory failure Qualifiers: Respiratory failure complication: hypercapnia Qualified Code(s): J96.02 - Acute respiratory failure with hypercapnia CHF (congestive heart failure) Qualifiers: Congestive heart failure type: unspecified congestive heart failure type Congestive heart failure chronicity: acute Qualified Code(s): I50.9 - Heart failure, unspecified Disposition: Admitted As Inpatient Condition: Critical CPR HPI - General Chief Complaint: ED Cardiac Arrest/CPR Stated Complaint: full arrest Time Seen by Provider: 08/14/17 20:47 Source: EMS Mode of arrival: EMS Limitations: other (arrest) Nursing Notes Reviewed: Yes Vital Signs Reviewed: Yes - History of Present Illness HPI Narrative: Please see course for full documentation. Patient arriving via EMS for a witnessed cardiac arrest. - Related Data Previous Rx's Medication Instructions Recorded Aspirin 325 mg PO DAILY tablet 08/07/17 Atorvastatin [Lipitor] 40 mg PO HS tablet 08/07/17 Carvedilol [Coreg] 25 mg PO BIDWM tablet 08/07/17 Clopidogrel [Plavix] 75 mg PO DAILY tablet 08/07/17 Furosemide [Lasix] 40 mg PO DAILY tablet 08/07/17 Lisinopril [Zestril] 2.5 mg PO DAILY tablet 08/07/17 Magnesium Oxide [Mag-Ox] 400 mg PO DAILY tablet 08/07/17 Nitroglycerin 0.4 mg SL Q5MIN PRN tab.subl 08/07/17 Nystatin Cream [Mycostatin Cream] 1 appl TP BID tube 08/07/17 Omeprazole [PriLOSEC] 20 mg PO DAILY@0630 capsule.dr 08/07/17 OxyCODONE Immed Rel [Roxicodone 5 10 mg PO Q8HR PRN #10 tablet 08/07/17 MG] Potassium Chloride 20 meq PO DAILY tab.er.prt 08/07/17 Zinc Sulfate 220 mg PO DAILY capsule 08/07/17 amLODIPine [Norvasc] 10 mg PO DAILY tablet 08/07/17 Allergies Allergy/AdvReac Type Severity Reaction Status Date / Time No Known Allergies Allergy Verified 07/03/15 17:42 Limitations: ROS unobtainable due to patients medical condition CPR PMH - Past Medical History Medical history: Reports: COPD, coronary artery disease, diabetes, hyperlipidemia, hypertension Male Surgical history: Reports: no surgical history Psychiatric history: Reports: no psych history - Social History Smoking Status: Unknown if ever smoked Alcohol use: Reports: none Drug use: Reports: none Physical Exam - General General appearance: obtunded (cardiac arrest) - Head Head exam: atraumatic - Eye Eye exam: Present: normal appearance, PERRL - Chest Chest inspection: Present: other (No crepitus) - Respiratory Respiratory exam: Present: other (apneic, bilateral breath sounds after intubation) - Cardiovascular Cardiovascular exam: Present: other (initial PEA) - Abdominal Exam Abdominal exam: Present: soft. Absent: distention - Rectal Exam Rectal exam: Present: deferred - Male exam: Present: normal inspection - Extremities Exam Extremities exam: Present: pedal edema, other (RLE cellulitis ) - Neurological Exam Neurological exam: Present: other (unresponsive, GCS 3) - Skin Skin exam: Present: pallor, mottled Course Course Narrative: Patient presenting to the emergency department via EMS in cardiac arrest. EMS reports they have very little history on the patient. [facility] and [facility] been [facility] about 2 weeks. According to EMS, the patient was eating dinner and started feeling unwell afterwards. While sitting at a table. The patient immediately went unresponsive. EMS reports when they arrived, the [facility] staff had placed an AED, but they did not recommend a shock. Initial rhythm in the truck was asystole. 2 rounds of epinephrine, 1 round of sodium, bicarbonate, and no shocks were given. Immediately upon arrival to the emergency Department. ACLS protocol was started. CODE: Patient had 2 rounds of PEA and received another amp of sodium bicarbonate and 1 of calcium. After the second round of epinephrine. We did have ROSC. The patient's initial rhythm was sinus bradycardia, so he did not get 0.5 mg of atropine. AIRWAY: Patient also had a Ethan airway in place by EMS, this was removed and the patient was intubated with a 7.5 mm ET tube. This was performed by Dr. Lewis under my supervision, please see his note for documentation. ACCESS: Patient had a left humeral intraosseous line in place. Prehospital. We placed a right tibial interosseous line. During the code. After return of circulation. We placed a right femoral CVC under ultrasound guidance. Please see Dr. Lewis's note for further details. After the central line was placed, patient was noted to be bradycardic in the high 40s low 50s. Transcutaneous pacing was attempted , however, the patient was having significant ectopy to this was discontinued. He was given another 0.5 mg of atropine with good success and her rate has remained in the 60s. Patient was initially hypertensive and is now hypotensive with a systolic blood pressure of 80. We will start Levophed at 10 mcg/min. 2 L fluid bolus. Labs are pending. Patient will be admitted to the ICU. Hernandez catheter was placed and did have thick sedimented urine. Suspected urosepsis causing the arrest. Bedside ultrasound did reveal a small tiana-cardial effusion with no signs of cardiac tamponade. This will be monitored. - Consultations Consultation #1: Patient admitted to the intensive care unit under Dr. See. Patient placed on ARDS protocol with 6 mL/kg ideal body weight, rate of 16, PEEP of 5, titrating FiO2 down to 40% as tolerated. Patient's oxygen saturations remaining 100% Time: 22:11 Vital Signs Temperature 0 F L 08/14/17 20:11 Pulse Rate 0 08/14/17 20:11 Respiratory Rate 0 08/14/17 20:11 Blood Pressure 0/0 08/14/17 20:11 O2 Sat by Pulse Oximetry 0 08/14/17 20:11 Temperature 88.9 F L 08/14/17 21:50 Pulse Rate 49 08/14/17 23:20 Respiratory Rate 12 08/14/17 23:56 Blood Pressure 111/29 08/14/17 23:56 O2 Sat by Pulse Oximetry 95 08/14/17 23:56 Oxygen Delivery Oxygen Delivery Ventilator Procedures - Arterial Line Time Out Performed: Yes Technique Used: guide wire technique Post-Procedure: line sutured into place, line taped into place, dry sterile dressing placed Patient Tolerated Procedure: well, no complications Complications: none Site: left, radial Additional Comments: under US guidance, no consent available due to emergent nature of procedure. - Central Line Placement Left Femoral Central Line Inserted*: Yes Central Line Insertion: emergent Procedural Pause: verify patient name and date of , timeout performed per policy, boogie and assess the site, assemble equipment and verify supplies, perform hand hygiene Patient Placed on Monitor/Pulse Ox: Yes During the Procedure: clinician is wearing sterile gloves, cap, mask,& gown during insertion, sterile field and sterile technique are maintained, patient's face is covered with drape or mask and wearing a cap, everyone in room is wearing a mask Central Line Prep: Chlorhexidine scrub Prep the Procedure Site: apply chloraprep to the skin using a back and forth scrubbing motion, apply chloraprep for 30 seconds (upper body), 1-2 min ( femoral sites), allow prep to dry, drape the patient with a full body drape Ultrasound Used for Placement: Yes Central Line Lumen Inserted: triple Post Procedure: sutured in place, good blood return, all ports aspirated, flushed, capped, sterile dressing applied, guide wire removed and visualized Patient Tolerated Procedure: well, no complications Complications: none Name of Clinician Inserting Central Line: Dr. Pawan Lewis Clinician Assisting/Completing Checklist: Dr. Meño Muniz and Dr. Westley Neely Date: 08/14/17 Time: 21:47 Additional Comments: Emergent femoral line placement during code for vasopressor support. - Intubation sedative: none Laryngoscope: Darya ET Tube Size: 7.5 ET Tube Uncuffed: No Tube Secured Depth (cm): 23 Tube Secured Location: teeth Tube Placement Confirmation: visualized tube passing through cords, equal breath sounds bilaterally, no breath sounds over epigastrium, confirmation by capnometry Patient Tolerated Procedure: well, no complications Intubation Complications: none Additional Comments: Performed by Dr. Lewis from my and Dr. Neely direct supervision. - IO Left Tibia IO Instrument Used to Penetrate the Cortex: battery powered IO drill Patient Tolerated Procedure: well, no complications Complications: none Cardiac Arrest/CPR - Medical Records Medical records reviewed: Yes I reviewed the patient's medical records. - Lab Data Lab results reviewed: Yes I reviewed the patient's lab results. Result diagrams: 08/14/17 20:45 08/14/17 20:45 Lab Results 08/14/17 08/14/17 08/14/17 Range/Units 20:25 20:45 20:45 WBC 9.9 (4.3-11.1) K/mcL RBC 2.85 L (4.19-5.50) M/mcL Hgb 8.1 L (12.9-16.9) g/dL Hct 27.4 L (37.5-50.1) % MCV 96.1 (83.0-100.0) fL MCH 28.4 (28.0-33.3) pg MCHC 29.6 L (31.6-35.5) g/dL RDW 17.9 H (11.5-14.5) % Plt Count 135 L (140-400) K/mcL MPV 12.7 H (9.4-12.4) fL Immature Gran % 3.3 (0-4) % Seg Neutrophils % 80.7 % Lymphocytes % 9.5 % Monocytes % 6.0 % Eosinophils % 0.3 % Basophils % 0.2 % Neutrophils # 8.0 (1.6-8.9) K/mcL Lymphocytes # 0.9 (0.6-4.6) K/mcL Monocytes # 0.6 (0.0-1.3) K/mcL Eosinophils # 0.0 (0.0-0.6) K/mcL Basophils # 0.0 (0.0-0.2) K/mcL ABG pH 7.21 L (7.32-7.45) pH Units ABG pCO2 96 H* (35-45) mmHg ABG pO2 72 L (85-104) mmHg ABG HCO3 39 H (21-27) mEq/L ABG Total CO2 42 H (20-26) mEq/L ABG O2 Saturation 89 L (95-98) % ABG Base Excess 9 H (-2 to 3) mEq/L Sodium 150 H (136-145) mEq/L Potassium 3.9 (3.5-4.5) mEq/L Chloride 108 (98-109) mEq/L Carbon Dioxide 25 (19-29) mEq/L BUN 40 H (8-26) mg/dL Creatinine 1.28 H (0.72-1.25) mg/dL Est GFR ( Amer) > 60 (> 60) Est GFR (Non-Af Amer) 55 L (> 60) BUN/Creatinine Ratio 31 H (6-26) Glucose 151 H (70-99) mg/dL Calculated Osmolality 323 H (280-300) Lactic Acid (0.5-2.2) mmol/L Calcium 8.1 L (8.6-10.8) mg/dL Total Bilirubin 0.5 (0.2-1.2) mg/dL Direct Bilirubin 0.4 (0.0-0.5) mg/dL Indirect Bilirubin 0.1 (0.0-1.2) mg/dL AST 84 H (5-34) Units/L ALT 49 (0-55) Units/L Alkaline Phosphatase 113 (38-126) Units/L Creatine Kinase 112 (30-200) Units/L Troponin I (0-0.03) ng/mL Serum Total Protein 4.7 L (6.0-8.3) g/dL Albumin 1.9 L (3.5-5.0) g/dL Globulin 2.8 (2.4-3.5) g/dL Albumin/Globulin Ratio 0.7 L (1.1-2.2) Lipase 10 (8-78) Units/L Urine Color (Yellow) Urine Clarity (Clear) Urine pH (5.0-8.0) pH Units Ur Specific [place] (1.010-1.025) Urine Protein (Neg-Trace) mg/dL Urine Glucose (UA) (Normal) mg/dL Urine Ketones (Negative) mg/dL Urine Blood (Negative) Urine Nitrite (Negative) Urine Bilirubin (Negative) Urine Urobilinogen (Normal) mg/dL Ur Leukocyte Esterase (Negative) Urine Microscopic RBC (0-3) per hpf Urine Microscopic WBC (0-3) per hpf Urine Bacteria (None-Few) per hpf Urine Yeast (None Seen) per hpf Urine Sperm Ur Culture Indicated? (NO) Person Notif of Lasha adler 08/14/17 08/14/17 08/14/17 Range/Units 20:45 20:45 20:57 WBC (4.3-11.1) K/mcL RBC (4.19-5.50) M/mcL Hgb (12.9-16.9) g/dL Hct (37.5-50.1) % MCV (83.0-100.0) fL MCH (28.0-33.3) pg MCHC (31.6-35.5) g/dL RDW (11.5-14.5) % Plt Count (140-400) K/mcL MPV (9.4-12.4) fL Immature Gran % (0-4) % Seg Neutrophils % % Lymphocytes % % Monocytes % % Eosinophils % % Basophils % % Neutrophils # (1.6-8.9) K/mcL Lymphocytes # (0.6-4.6) K/mcL Monocytes # (0.0-1.3) K/mcL Eosinophils # (0.0-0.6) K/mcL Basophils # (0.0-0.2) K/mcL ABG pH (7.32-7.45) pH Units ABG pCO2 (35-45) mmHg ABG pO2 (85-104) mmHg ABG HCO3 (21-27) mEq/L ABG Total CO2 (20-26) mEq/L ABG O2 Saturation (95-98) % ABG Base Excess (-2 to 3) mEq/L Sodium (136-145) mEq/L Potassium (3.5-4.5) mEq/L Chloride (98-109) mEq/L Carbon Dioxide (19-29) mEq/L BUN (8-26) mg/dL Creatinine (0.72-1.25) mg/dL Est GFR ( Amer) (> 60) Est GFR (Non-Af Amer) (> 60) BUN/Creatinine Ratio (6-26) Glucose (70-99) mg/dL Calculated Osmolality (280-300) Lactic Acid 3.8 H (0.5-2.2) mmol/L Calcium (8.6-10.8) mg/dL Total Bilirubin (0.2-1.2) mg/dL Direct Bilirubin (0.0-0.5) mg/dL Indirect Bilirubin (0.0-1.2) mg/dL AST (5-34) Units/L ALT (0-55) Units/L Alkaline Phosphatase (38-126) Units/L Creatine Kinase (30-200) Units/L Troponin I 0.14 H* (0-0.03) ng/mL Serum Total Protein (6.0-8.3) g/dL Albumin (3.5-5.0) g/dL Globulin (2.4-3.5) g/dL Albumin/Globulin Ratio (1.1-2.2) Lipase (8-78) Units/L Urine Color Yellow (Yellow) Urine Clarity Turbid A (Clear) Urine pH 6.5 (5.0-8.0) pH Units Ur Specific [place] 1.016 (1.010-1.025) Urine Protein >=300 H (Neg-Trace) mg/dL Urine Glucose (UA) Normal (Normal) mg/dL Urine Ketones Trace H (Negative) mg/dL Urine Blood Large H (Negative) Urine Nitrite Negative (Negative) Urine Bilirubin Negative (Negative) Urine Urobilinogen Normal (Normal) mg/dL Ur Leukocyte Esterase Large H (Negative) Urine Microscopic RBC TNTC H (0-3) per hpf Urine Microscopic WBC TNTC H (0-3) per hpf Urine Bacteria Few (None-Few) per hpf Urine Yeast Few H (None Seen) per hpf Urine 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 YES A (NO) Person Notif of Crit - Radiology Data Radiology results reviewed: Yes I reviewed the patient's radiology results. Chest X-Ray 08/14/17 20:37 IMPRESSION: 1. Cardiomegaly with findings suggestive of pulmonary edema with bilateral pleural effusions present. There is also bibasilar atelectasis and nonspecific parenchymal opacities are noted within the right lower lobe. While findings potentially may be related to edema, findings may also reflect superimposed pneumonia or possible aspiration given history of cardiac arrest. 2. Enteric tube side port at the level of the distal esophagus. Recommend advancement by approximately 10 cm. 3. Endotracheal tube and right sided PICC line appear appropriately positioned. D/ / Silvestre Vincent MD / Silvestre Vincent MD Interpreting Provider: Silvestre Vincent MD X-Ray 08/14/17 21:03 IMPRESSION: Nasogastric tube tip in the distal esophagus at the GE junction. The tube needs to be advanced approximately 12-15 cm. D/ / Shahzad Vigil MD / Shahzad Vigil MD Interpreting Provider: Shahzad Vigil MD - EKG Data EKG attestation: Yes I reviewed and interpreted this EKG. EKG results narrative: Junctional rhythm, rate 84, OK interval 64, QRS 153, QTc 471, normal axis, intraventricular conduction delay, no previous available. Note: This is a postcardiac arrest. EKG. Critical Care Time Critical Care Time: Yes Total Critical Care Time: 60 Attestation: Critical care performed: Time is exclusive of separately billable procedures. Time includes: direct patient care, patient reassessment, coordination of patient care, interpretation of data (laboratory data, radiology data, and respiratory data), review of patient's medical records, medical consultation and documentation of patient care. Procedures included in critical care time: Resuscitation of this critically ill patient in acute cardiopulmonary arrest and suspected uroseptic shock including interpretation laboratory results, obtaining history, consulting for before meals admission Procedures excluded from critical care time: Intubation, central venous catheter placement, arterial line
[2017-08-14 20:55] LABS: Basophils % 0.2 %; Eosinophils % 0.3 %; Hematocrit 27.4 % (37.5-50.1); Hemoglobin 8.1 g/dL (12.9-16.9); Immature Granulocytes % 3.3 % (0-4); Lymphocytes # 0.9 K/mcL (0.6-4.6); Lymphocytes % 9.5 %; Mean Corpuscular HGB Conc 29.6 g/dL (31.6-35.5); Mean Corpuscular Hemoglobin 28.4 pg (28.0-33.3); Mean Corpuscular Volume 96.1 fL (83.0-100.0); Mean Platelet Volume 12.7 fL (9.4-12.4); Monocytes # 0.6 K/mcL (0.0-1.3); Platelet Count 135 K/mcL (140-400); Red Blood Count 2.85 M/mcL (4.19-5.50); Red Cell Distribution Width 17.9 % (11.5-14.5); Segmented Neutrophils % 80.7 %
[2017-08-14] MEDS ORDERED: 0.9 % Sodium Chloride 1,000 ML ONE ×2 (20:59→21:15)
[2017-08-14 21:06] LABS: Bilirubin,Urine Negative (Negative); Blood,Urine Large (Negative); Clarity,Urine Turbid (Clear); Color,Urine Yellow (Yellow); Glucose,Urine (UA) Normal (Normal); Ketones,Urine Trace mg/dL (Negative); Leukocyte Esterase,Urine Large (Negative); Nitrite,Urine Negative (Negative); PH,Urine 6.5 pH Units (5.0-8.0); Protein,Urine >=300 mg/dL (Neg-Trace); Specific Gravity,Urine 1.016 (1.010-1.025); Urobilinogen,Urine Normal (Normal)
[2017-08-14 21:12] LABS: Bacteria,Urine Few per hpf (None-Few); RBC,Urine TNTC per hpf (0-3); WBC,Urine TNTC per hpf (0-3); Yeast,Urine Few per hpf (None Seen)
[2017-08-14] MEDS ORDERED: Vancomycin (wt based) 1,000 MG VIAL IVPB ONE (21:14)
[2017-08-14] MEDS ORDERED: Cefepime HCl 2,000 MG in D5% in Water (Mini-Bag+) 100 ML IVPB STA (21:14)
[2017-08-14 21:19] LABS: Alanine Aminotransferase 49 Units/L (0-55); Albumin/Globulin Ratio 0.7 (1.1-2.2); Alkaline Phosphatase 113 Units/L (38-126); Bilirubin,Total 0.5 mg/dL (0.2-1.2); Calcium 8.1 mg/dL (8.6-10.8); Chloride 108 mEq/L (98-109); Globulin 2.8 g/dL (2.4-3.5); Potassium 3.9 mEq/L (3.5-4.5); Sodium 150 mEq/L (136-145); Total Protein 4.7 g/dL (6.0-8.3); eGFR For African Americans > 60 (> 60); eGFR For Non-African Americans 55 (> 60)
[2017-08-14 21:20] LABS: Albumin 1.9 g/dL (3.5-5.0)
--- NOTE | 2017-08-14 21:56 | Emergency Department Note ---
START Narrative - START START: I examined this patient and my medical decision-making was reviewed with the Resident Physician. I agree with the documented findings, disposition and treatment plan as described except to the extent set forth below. 77-year-old male presented to the emergency room in cardiac arrest. Patient was a [facility]. Apparently he had been there receiving some IV antibiotics for an unknown infection to me at this time. . He was given an amp of bicarbonate in route. 2 epis were also given. He was found to be in PEA. Upon arrival patient was in asystole. Compressions were continued upon arrival. ACLS guidelines were followed for PEA/asystole. pt was successfully intubated right away by Dr Lewis. a Left tibia IO line was placed by АЛЕКСАНДР Singh under my supervision successfully. ACLS guidelines were followed in which the patient did have a return of a pulse with a blood pressure. We confirmed this with bedside ultrasound. A left femoral central line was also placed by Dr. Lewis under my supervision. This was done successfully without any complications. Patient's chest x-ray showed diffuse pulmonary edema. KUB was unremarkable. Patient's blood pressure began to bottom down in which he was started on levophed. A left radial arterial line was placed by Dr. Muniz without any complications under my supervision as well. Patient was found to have a bad urinary tract infection. We started him on vancomycin and cefepime. Patient will be admitted to the ICU. Total critical care time was 60 minutes. Time was spent and medical management as well as ACLS resuscitation guidelines for PEA and asystole. This time is excluding any procedure time.
[2017-08-14] MEDS ORDERED: Vancomycin 1,500 MG in D5% in Water 250 ML IVPB ONE (22:00)
[2017-08-14 22:33] LABS: Aspartate Amino Transferase 84 Units/L (5-34); BUN/Creatinine Ratio 31 (6-26); Bilirubin,Direct 0.4 mg/dL (0.0-0.5); Bilirubin,Indirect 0.1 mg/dL (0.0-1.2); Blood Urea Nitrogen 40 mg/dL (8-26); Carbon Dioxide 25 mEq/L (19-29); Creatine Kinase 112 Units/L (30-200); Glucose 151 mg/dL (70-99); Lipase 10 Units/L (8-78); Osmolality,Calculated 323 (280-300)
[2017-08-14] MEDS ORDERED: *HR* Midazolam HCl 2 MG/2 ML VIAL IVP ONE (23:03)
[2017-08-14] MEDS ORDERED: *HR* Rocuronium Bromide 50 MG/5 ML VIAL IVP ONE (23:03)
[2017-08-14] MEDS ORDERED: Dexmedetomidine HCl 400 MCG/100 ML MLS IVC ONE (23:05)
[2017-08-14] MEDS ORDERED: Dexmedetomidine HCl 400 MCG/100 ML MLS IVC SCH (23:15)
[2017-08-14] MEDS: Norepinephrine 4 MG in D5% in Water 250 ML IVC SCH (23:45)
[2017-08-14 23:56] LABS: ABG Base Excess 7 mEq/L (-2 to 3); ABG HCO3 31 mEq/L (21-27); ABG Oxygen Saturation 93 % (95-98); ABG PCO2 43 mmHg (35-45); ABG PH 7.47 pH Units (7.32-7.45); ABG PO2 63 mmHg (85-104); ABG TCO2 33 mEq/L (20-26); Blood Gas Modality PRVC; Blood Gas PEEP 5 cm H2O; Blood Gas Respiration Rate 16; Blood Gas VT 500 cc
[2017-08-15] MEDS ORDERED: D5% in Water 1,000 ML IVC PRN (00:52)
[2017-08-15] MEDS ORDERED: Dextrose Gel 15 GM PO PRN ×2 (00:52)
[2017-08-15] MEDS ORDERED: Lacri-Lube 3.5 GM TUBE BOTH EYES PRN (00:52)
[2017-08-15] MEDS ORDERED: Naloxone 0.4 MG/ML INJ IVP PRN (00:52)
[2017-08-15] MEDS ORDERED: Ondansetron 4 MG/2 ML VIAL IVP PRN (00:52)
[2017-08-15] MEDS ORDERED: *HR* Dextrose 50 % in Water (Syg) 50 ML SYRINGE IVP PRN (00:52)
[2017-08-15] MEDS ORDERED: Vancomycin (wt based) 1,000 MG VIAL IVPB SCH (01:00)
[2017-08-15] MEDS: 0.9 % Sodium Chloride 1,000 ML IVC SCH (01:26)
--- NOTE | 2017-08-15 01:30 | Internal Med History&Physical ---
Date of Encounter: 08/15/17 Time of Encounter: 00:30 Assessment and Plan (1) Cardiac arrest Current visit: Yes Status: Acute 1. S/P resuscitation with return of spontaneous circulation. 2. Due to hypothermia (88 degrees F), patient is not candidate for hypothermic protocol. 3. Patient being actively re-warmed with warming blanket. 4. Monitor electrolytes and correct as necessary. 5. If bradycardia worsens or fails to improve, will add dopamine. 6. Will trend troponins and order ECHO. 7. Consult cardiology in the morning. 8. Will order head CT and consider consulting neurology in the morning for concerns of anoxic brain injury. 9. Consult Pulmonary for ICU management in the morning. 10. I spoke with brother, and patient is full code. Patient has a guarded prognosis and has high risk of morbidity and mortality. I explained to brother , and he voiced understanding. He will try to contact patient's son to discuss further life-sustaining issues. Total 85 minutes critical care time thus far assessing and treating patient. (2) Sepsis Current visit: No Status: Acute 1. Patient with diabetic foot ulcers currently being treated with IV antibiotics and PICC line at [facility]. 2. Blood cultures and urine cultures ordered. I also ordered sputum cultures. 3. WIll treat with IV Vancomycin and ZOsyn based upon most recent culture data available. 4. May need ID consult. 5. S/P fluid resuscitation in ER. 6. Continue IVF, trend lactate, active re-warming with warming blanket. 7. Pressor support as necessary. Qualifiers: Sepsis type: sepsis due to unspecified organism Qualified Code(s): A41.9 - Sepsis, unspecified organism (3) Diabetes Current visit: No Status: Chronic 1. Will place on SSI coverage with Q6hr glucose checks while npo. 2. Monitor glucose and adjust as necessary. 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 mellitus truck terminal manager insulin use: without truck terminal manager use Qualified Code( s): E11.621 - Type 2 diabetes mellitus with foot ulcer; L97.509 - Non-pressure chronic ulcer of other part of unspecified foot with unspecified severity; L97.509 - Non-pressure chronic ulcer of other part of unspecified foot with unspecified severity; L97.509 - Non-pressure chronic ulcer of other part of unspecified foot with unspecified severity; L97.509 - Non-pressure chronic ulcer of other part of unspecified foot with unspecified severity (4) Acute kidney injury Current visit: No Status: Acute 1. Likely due to sepsis and cardiac arrest. 2. IVF as above. 3. Will monitor renal function and consult nephrology in the morning if necessary. (5) DVT prophylaxis Current visit: No Status: Acute 1. Heparin SQ. Internal Medicine - H&P: HPI Chief complaint: s/p cardiac arrest Admitted From: Emergency Dept Plans for Post Hospital Care: Transfer Alf Facility History of present illness: Mr. Mayorga is a 77 year old male who presents to the ER tonight after having sustained a witnessed cardiopulmonary arrest at his local ECF. CPR was initiated at the ECF and then continued by EMS upon arrival. According to third democrat reports, he did have return of spontaneous circulation. He then had another cardiopulmonary arrest in the ER and had to be resuscitated again. Once stabilized, he was admitted to the intensive care unit to the hospitalist service. He was intubated in the ER. He also underwent central line placement and arterial line placement in the ER as well. Currently, he is on mechanical ventilation, IV fluids, antibiotics, and IV pressor support. Patient shows minimal neurologic activity on exam. He is not sedated. I am unable to obtain any information from patient. All information is obtained from old records, my discussions with ER staff, and a phone call I placed to his brother. Brother confirms patient is full code as he does not have a living will or any prior expressed wishes. According to old records, patient was recently hospitalized for sepsis and diabetic foot ulceration. He was in ECF with a PICC line for IV antibiotics and wound care. Today's event was not precipitated by anything that we could gather. No reports of any fevers, shakes, chills, night sweats, hypoglycemia, chest pain, or shortness of breath. I discussed the case with patient's ICU nurse and reviewed our hypothermic protocol. Patient does not qualify for the hypothermic protocol because patient has a core body temperature of 88 degrees Fahrenheit. According to protocol, body temperature has to be at least 93 degrees or above to qualify for hypothermic protocol. As such, he is on a warming blanket and we are treating him with life supporting measures and concern for sepsis. Past Med Surg Social Fam HX - Past Medical History Medical history: COPD, coronary artery disease, diabetes, hyperlipidemia, hypertension Psychiatric history: no psych history - Past Surgical History Surgical History: no surgical history - Social History Smoking Status: Unknown if ever smoked Smokeless Tobacco Status: No Alcohol use: none Drug use: none - Family History Mother Family Member Ethnicity: Non- Living Status: Hx Family Cardiac Disorders: Yes (CAD) Hx Family Endocrine Disorder: Yes (DM) Father Family Member Ethnicity: Non- Living Status: Hx Family Cardiac Disorders: Yes (HD) Hx Family Respiratory Disorders: Yes (Emphysema) Brother Family Member Ethnicity: Non- Living Status: Still Living Hx Family Cardiac Disorders: Yes (HD, HTN) Hx Family Endocrine Disorder: Yes (DM) Sister Family Member Ethnicity: Non- Living Status: Hx Family Endocrine Disorder: Yes (DM) Internal Medicine - H&P: Meds Aspirin 325 mg PO DAILY tablet 08/07/17 [Rx] Atorvastatin [Lipitor] 40 mg PO HS tablet 08/07/17 [Rx] Carvedilol [Coreg] 25 mg PO BIDWM tablet 08/07/17 [Rx] Clopidogrel [Plavix] 75 mg PO DAILY tablet 08/07/17 [Rx] Furosemide [Lasix] 40 mg PO DAILY tablet 08/07/17 [Rx] Lisinopril [Zestril] 2.5 mg PO DAILY tablet 08/07/17 [Rx] Magnesium Oxide [Mag-Ox] 400 mg PO DAILY tablet 08/07/17 [Rx] Nitroglycerin 0.4 mg SL Q5MIN PRN tab.subl 08/07/17 [Rx] Nystatin Cream [Mycostatin Cream] 1 appl TP BID tube 08/07/17 [Rx] Omeprazole [PriLOSEC] 20 mg PO DAILY@0630 capsule.dr 08/07/17 [Rx] OxyCODONE Immed Rel [Roxicodone 5 MG] 10 mg PO Q8HR PRN #10 tablet 08/07/17 [Rx] Potassium Chloride 20 meq PO DAILY tab.er.prt 08/07/17 [Rx] Zinc Sulfate 220 mg PO DAILY capsule 08/07/17 [Rx] amLODIPine [Norvasc] 10 mg PO DAILY tablet 08/07/17 [Rx] 3 Allergy/AdvReac Type Severity Reaction Status Date / Time No Known Allergies Allergy Verified 07/03/15 17:42 ROS unobtainable: due to endotracheal tube - Constitutional Vitals: Temp Pulse Resp BP Pulse Ox 88.3 F L 48 12 106/46 93 08/14/17 23:45 08/15/17 00:56 08/15/17 01:14 08/15/17 01:14 08/15/17 01:14 Exam: patient intubated; no purposeful neurologic activity presently other than + corneal reflex, questionable pupillary reflex, and rare movement of upper extremities. - Head Head exam: Present: atraumatic, normal inspection - Expanded Head Exam Head exam expanded: Absent: abrasion, contusion - Eye Eye exam: Absent: scleral icterus Additional comments: pupils ~ 2-3 mm; sluggish pupillary response if even present - ENT ENT exam: Present: mucous membranes dry Additional comments: ETT and OG tube in place - Neck Neck exam general surgery: Present: full ROM, supple, trachea midline. Absent: lymphadenopathy, tenderness - Respiratory Respiratory exam: Present: CTAB. Absent: accessory muscle use, chest wall tenderness, rales, respiratory distress, rhonchi, wheezes - Cardiovascular Cardiovascular exam: Present: bradycardia, RRR, +S1, +S2. Absent: diastolic murmur, JVD, systolic murmur - GI/Abdominal GI/Abdominal exam: Present: soft. Absent: guarding, hepatomegaly, mass, rebound , splenomegaly, tenderness - Extremities Exam Extremities exam: Absent: calf tenderness, joint swelling, pedal edema, warm Additional comments: feet/heels dressed; cool extremities with delayed cap refill - Neurological Exam Additional comments: rare, spontaneous eye opening/blinking, does not follow with eyes, + corneal reflex, no gag reflex, pupils sluggishly responsive if at all - Psychiatric Additional comments: unable to assess; see neurologic assessment - Skin Skin exam: Present: dry, pallor. Absent: rash, warm Additional comments: cool trunk and extremities Internal Med - H&P Results - Labs CBC & Chem 7: 08/14/17 20:45 08/14/17 20:45 - ABG Interpretation Interpretation: ABG interpreted by me ABG results: 08/14/17 23:52 ABG pH 7.47 H D ABG pCO2 43 D ABG pO2 63 L ABG HCO3 31 H ABG Total CO2 33 H ABG O2 Saturation 93 L ABG Base Excess 7 H Interpretation: respiratory acidosis Additional comments: initial ABG shows respiratory acidosis; repeat ABG improved and corrected with mechanical ventilation - EKG Data -: EKG Interpreted by Myself - EKG Data Prior EKG available for review: no EKG comments: 08/15/17 02:10 junctional rhythm with HR in the 40's. - Diagnostic Studies Chest x-ray Status: image reviewed by me (ETT in place; cardiomegaly; pulmonary edema vs pneumonia)
[2017-08-15] MEDS ORDERED: Water for inj. (sterile) 10 ML IV ONE ×2 (01:31→01:37)
[2017-08-15 01:36] LABS: INR 1.6; Prothrombin Time 17.2 Seconds (9.4-12.1)
[2017-08-15 01:38] LABS: Activated Partial Thrombo Time 38.2 Seconds (26.0-36.0)
[2017-08-15] MEDS ORDERED: Cefepime HCl 2,000 MG in Water for inj. (sterile) 10 ML IVP ONE (02:00)
[2017-08-15 04:09] LABS: ABG Base Excess 5 mEq/L (-2 to 3); ABG HCO3 30 mEq/L (21-27); ABG Oxygen Saturation 93 % (95-98); ABG PCO2 50 mmHg (35-45); ABG PH 7.39 pH Units (7.32-7.45); ABG PO2 70 mmHg (85-104); ABG TCO2 32 mEq/L (20-26); Blood Gas Modality PRVC; Blood Gas PEEP 5 cm H2O; Blood Gas Respiration Rate 12; Blood Gas VT 500 cc
[2017-08-15] MEDS: Pantoprazole 40 MG VIAL IVPB SCH ×2 (05:10→17:33)
[2017-08-15] MEDS: Lacri-Lube 3.5 GM TUBE BOTH EYES SCH ×6 (05:10→23:40)
[2017-08-15] MEDS: Insulin LISPRO 300 UNITS/3 ML VIAL SQ SCH ×4 (05:11→23:40)
[2017-08-15 05:22] LABS: Basophils % 0.1 %; Eosinophils % 0.1 %; Hematocrit 26.2 % (37.5-50.1); Hemoglobin 7.9 g/dL (12.9-16.9); Immature Granulocytes % 0.8 % (0-4); Lymphocytes # 0.4 K/mcL (0.6-4.6); Lymphocytes % 2.3 %; Mean Corpuscular HGB Conc 30.2 g/dL (31.6-35.5); Mean Corpuscular Hemoglobin 28.3 pg (28.0-33.3); Mean Corpuscular Volume 93.9 fL (83.0-100.0); Mean Platelet Volume 12.4 fL (9.4-12.4); Monocytes # 1.3 K/mcL (0.0-1.3); Monocytes % 7.3 %; Platelet Count 125 K/mcL (140-400); Red Blood Count 2.79 M/mcL (4.19-5.50); Red Cell Distribution Width 17.5 % (11.5-14.5); Segmented Neutrophils % 89.4 %
[2017-08-15 05:24] LABS: Neutrophils # 15.8 K/mcL (1.6-8.9)
[2017-08-15 05:26] LABS: Hemoglobin A1C 7.4 %
[2017-08-15] MEDS: *HR* Heparin 5,000 UNIT/ML VIAL SQ SCH ×2 (05:31→14:13)
[2017-08-15 05:34] LABS: Alanine Aminotransferase 53 Units/L (0-55); Albumin/Globulin Ratio 0.7 (1.1-2.2); Alkaline Phosphatase 114 Units/L (38-126); Aspartate Amino Transferase 68 Units/L (5-34); BUN/Creatinine Ratio 31 (6-26); Bilirubin,Direct 0.4 mg/dL (0.0-0.5); Bilirubin,Indirect 0.2 mg/dL (0.0-1.2); Bilirubin,Total 0.6 mg/dL (0.2-1.2); Blood Urea Nitrogen 43 mg/dL (8-26); Calcium 7.7 mg/dL (8.6-10.8); Carbon Dioxide 29 mEq/L (19-29); Chloride 109 mEq/L (98-109); Globulin 2.7 g/dL (2.4-3.5); Glucose 211 mg/dL (70-99); Magnesium 1.1 mg/dL (1.6-2.6); Osmolality,Calculated 329 (280-300); Potassium 3.9 mEq/L (3.5-4.5); Sodium 151 mEq/L (136-145); Total Protein 4.6 g/dL (6.0-8.3); eGFR For African Americans > 60 (> 60); eGFR For Non-African Americans 50 (> 60)
[2017-08-15 05:36] LABS: Albumin 1.9 g/dL (3.5-5.0)
[2017-08-15] MEDS: *HR* FentaNYL (PF) 100 MCG/2 ML VIAL IVP PRN ×3 (06:13→22:06)
[2017-08-15] MEDS ORDERED: Budesonide/Formoterol 160/4.5 MDI IH ONE (07:48)
[2017-08-15] MEDS: Budesonide/Formoterol 160/4.5 MDI IH SCH ×2 (07:50→19:54)
--- NOTE | 2017-08-15 08:28 | Pulmonology Consult Note ---
<Jayson Peterson - Last Filed: 08/15/17 08:28> Date of Encounter: 08/15/17 Time of Encounter: 08:28 Past Med Surg Social Fam HX - Past Medical History Medical history: COPD, coronary artery disease, diabetes, hyperlipidemia, hypertension Psychiatric history: no psych history - Past Surgical History Surgical History: no surgical history - Social History Smoking Status: Unknown if ever smoked Smokeless Tobacco Status: No Alcohol use: none Drug use: none - Family History Mother Family Member Ethnicity: Non- Living Status: Hx Family Cardiac Disorders: Yes (CAD) Hx Family Endocrine Disorder: Yes (DM) Father Family Member Ethnicity: Non- Living Status: Hx Family Cardiac Disorders: Yes (HD) Hx Family Respiratory Disorders: Yes (Emphysema) Brother Family Member Ethnicity: Non- Living Status: Still Living Hx Family Cardiac Disorders: Yes (HD, HTN) Hx Family Endocrine Disorder: Yes (DM) Sister Family Member Ethnicity: Non- Living Status: Hx Family Endocrine Disorder: Yes (DM) Medications and Allergies Aspirin 325 mg PO DAILY tablet 08/07/17 [Rx] Atorvastatin [Lipitor] 40 mg PO HS tablet 08/07/17 [Rx] Carvedilol [Coreg] 25 mg PO BIDWM tablet 08/07/17 [Rx] Clopidogrel [Plavix] 75 mg PO DAILY tablet 08/07/17 [Rx] Furosemide [Lasix] 40 mg PO DAILY tablet 08/07/17 [Rx] Lisinopril [Zestril] 2.5 mg PO DAILY tablet 08/07/17 [Rx] Magnesium Oxide [Mag-Ox] 400 mg PO DAILY tablet 08/07/17 [Rx] Nitroglycerin 0.4 mg SL Q5MIN PRN tab.subl 08/07/17 [Rx] Omeprazole [PriLOSEC] 20 mg PO DAILY@0630 capsule. 08/07/17 [Rx] OxyCODONE Immed Rel [Roxicodone 5 MG] 10 mg PO Q8HR PRN #10 tablet 08/07/17 [Rx] Potassium Chloride 20 meq PO DAILY tab.er.prt 08/07/17 [Rx] Zinc Sulfate 220 mg PO DAILY capsule 08/07/17 [Rx] amLODIPine [Norvasc] 10 mg PO DAILY tablet 08/07/17 [Rx] Clotrimazole/Betamethasone Dip [Lotrisone Cream] 1 appl TP DAILY 08/15/17 [ History] Collagenase Oint [Santyl] 1 appl TP BID 08/15/17 [History] Insulin LISPRO [HumaLOG] 0 units SQ TID PRN 08/15/17 [History] Levofloxacin 750 MG/150 ML [Levaquin Premix 750mg/150 mL] 750 mg IVPB DAILY 11/30 [History] Melatonin 5 mg PO HS 08/15/17 [History] Vancomycin/0.9 % Sod Chloride [Vanco 1.25 gm/250 ml-0.9% NaCl] 1.25 gm IV DAILY 08/15/17 [History] 3 Allergy/AdvReac Type Severity Reaction Status Date / Time No Known Allergies Allergy Verified 07/03/15 17:42 All Systems: A 10-system review of systems was performed and is negative for pertinent findings except as documented above in the HPI. Physical Examination Vital Signs: Vital Signs, Last 4 Hours Temp Pulse Resp BP Pulse Ox 08/15/17 07:34 93.4 F L 08/15/17 07:00 58 110/50 100 08/15/17 06:00 92.4 F L 55 16 106/51 100 08/15/17 05:00 91.8 F L 54 16 100/50 98 08/15/17 04:53 12 110/50 98 Ventilator Settings Ventilator Settings: Ventilator Settings, Last 8 Hours Ventilator Mode VC+ Ventilator Mode VC+ Ventilator Mode VC+ Ventilator Mode VC+ Ventilator Mode VC+ Ventilator Mode VC+ Ventilator Tidal Volume 500 Setting Ventilator Tidal Volume 500 Setting Ventilator Tidal Volume 500 Setting Ventilator Tidal Volume 500 Setting Ventilator Tidal Volume 550 Setting Ventilator Tidal Volume 550 Setting Ventilator Respiratory Rate 12 Setting Ventilator Respiratory Rate 12 Setting Ventilator Respiratory Rate 12 Setting Ventilator Respiratory Rate 12 Setting Ventilator Respiratory Rate 12 Setting Ventilator Respiratory Rate 12 Setting Actual Respiratory Rate 12 Actual Respiratory Rate 15 Actual Respiratory Rate 12 Positive End Expiratory 5 Pressure Positive End Expiratory 5 Pressure Positive End Expiratory 5 Pressure Positive End Expiratory 5 Pressure Positive End Expiratory 5 Pressure Positive End Expiratory 5 Pressure Peak Inspiratory Airway 25 Pressure Peak Inspiratory Airway 27 Pressure Peak Inspiratory Airway 25 Pressure Peak Inspiratory Airway 31 Pressure Peak Inspiratory Airway 27 Pressure Results - Laboratory Findings CBC and BMP: 08/15/17 05:02 08/15/17 05:02 ABG ABG pH 7.39 pH Units (7.32-7.45) 08/15/17 04:06 ABG pCO2 50 mmHg (35-45) H 08/15/17 04:06 ABG pO2 70 mmHg (85-104) L 08/15/17 04:06 ABG O2 Saturation 93 % (95-98) L 08/15/17 04:06 PT/INR, D-dimer PT 17.2 Seconds (9.4-12.1) H 08/15/17 01:15 Abnormal lab findings: Abnormal lab results WBC 17.7 K/mcL (4.3-11.1) H D 08/15/17 05:02 RBC 2.79 M/mcL (4.19-5.50) L 08/15/17 05:02 Hgb 7.9 g/dL (12.9-16.9) L 08/15/17 05:02 Hct 26.2 % (37.5-50.1) L 08/15/17 05:02 MCHC 30.2 g/dL (31.6-35.5) L 08/15/17 05:02 RDW 17.5 % (11.5-14.5) H 08/15/17 05:02 Plt Count 125 K/mcL (140-400) L 08/15/17 05:02 Neutrophils # 15.8 K/mcL (1.6-8.9) H 08/15/17 05:02 Lymphocytes # 0.4 K/mcL (0.6-4.6) L 08/15/17 05:02 PT 17.2 Seconds (9.4-12.1) H 08/15/17 01:15 APTT 38.2 Seconds (26.0-36.0) H 08/15/17 01:15 ABG pCO2 50 mmHg (35-45) H 08/15/17 04:06 ABG pO2 70 mmHg (85-104) L 08/15/17 04:06 ABG HCO3 30 mEq/L (21-27) H 08/15/17 04:06 ABG Total CO2 32 mEq/L (20-26) H 08/15/17 04:06 ABG O2 Saturation 93 % (95-98) L 08/15/17 04:06 ABG Base Excess 5 mEq/L (-2 to 3) H 08/15/17 04:06 Sodium 151 mEq/L (136-145) H 08/15/17 05:02 BUN 43 mg/dL (8-26) H 08/15/17 05:02 Creatinine 1.38 mg/dL (0.72-1.25) H 08/15/17 05:02 Est GFR (Non-Af Amer) 50 (> 60) L 08/15/17 05:02 BUN/Creatinine Ratio 31 (6-26) H 08/15/17 05:02 Glucose 211 mg/dL (70-99) H 08/15/17 05:02 POC Glucose 171 (58-89) H 08/15/17 05:04 Hemoglobin A1c 7.4 % (-5.6) H 08/15/17 05:02 Calculated Osmolality 329 (280-300) H 08/15/17 05:02 Calcium 7.7 mg/dL (8.6-10.8) L 08/15/17 05:02 Magnesium 1.1 mg/dL (1.6-2.6) L 08/15/17 05:02 AST 68 Units/L (5-34) H 08/15/17 05:02 Troponin I 0.69 ng/mL (0-0.03) H* 08/15/17 05:02 Serum Total Protein 4.6 g/dL (6.0-8.3) L 08/15/17 05:02 Albumin 1.9 g/dL (3.5-5.0) L 08/15/17 05:02 Albumin/Globulin Ratio 0.7 (1.1-2.2) L 08/15/17 05:02 Urine Clarity Turbid (Clear) A 08/14/17 20:57 Urine Protein >=300 mg/dL (Neg-Trace) H 08/14/17 20:57 Urine Ketones Trace mg/dL (Negative) H 08/14/17 20:57 Urine Blood Large (Negative) H 08/14/17 20:57 Ur Leukocyte Esterase Large (Negative) H 08/14/17 20:57 Urine Microscopic RBC TNTC per hpf (0-3) H 08/14/17 20:57 Urine Microscopic WBC TNTC per hpf (0-3) H 08/14/17 20:57 Urine Yeast Few per hpf (None Seen) H 08/14/17 20:57 Ur Culture Indicated? YES (NO) A 08/14/17 20:57 - Clinical Findings Intake & Output: Intake & Output 08/14/17 08/15/17 08/15/17 23:59 07:59 15:59 Intake Total 424 / 424 Output Total 250 / 250 Balance 174 / 174 Weight 81.7 kg Consult Discharge Plan - Plan Referrals: Poncho Noriega MD [Primary Care Provider] - <Robert Rodriguez - Last Filed: 08/15/17 10:27> Date of Encounter: 08/15/17 All Systems: A 10-system review of systems was performed and is negative for pertinent findings except as documented above in the HPI. Physical Examination Vital Signs: Vital Signs, Last 4 Hours Temp Pulse Resp BP Pulse Ox 08/15/17 07:34 93.4 F L 08/15/17 07:00 58 110/50 100 08/15/17 06:00 92.4 F L 55 16 106/51 100 Ventilator Settings Ventilator Settings: Ventilator Settings, Last 8 Hours Ventilator Mode VC+ Ventilator Mode VC+ Ventilator Mode VC+ Ventilator Mode VC+ Ventilator Mode VC+ Ventilator Tidal Volume 500 Setting Ventilator Tidal Volume 500 Setting Ventilator Tidal Volume 500 Setting Ventilator Tidal Volume 500 Setting Ventilator Tidal Volume 550 Setting Ventilator Respiratory Rate 12 Setting Ventilator Respiratory Rate 12 Setting Ventilator Respiratory Rate 12 Setting Ventilator Respiratory Rate 12 Setting Ventilator Respiratory Rate 12 Setting Actual Respiratory Rate 12 Actual Respiratory Rate 15 Positive End Expiratory 5 Pressure Positive End Expiratory 5 Pressure Positive End Expiratory 5 Pressure Positive End Expiratory 5 Pressure Positive End Expiratory 5 Pressure Peak Inspiratory Airway 25 Pressure Peak Inspiratory Airway 27 Pressure Peak Inspiratory Airway 25 Pressure Peak Inspiratory Airway 31 Pressure Results - Laboratory Findings CBC and BMP: 08/15/17 05:02 08/15/17 05:02 ABG ABG pH 7.39 pH Units (7.32-7.45) 08/15/17 04:06 ABG pCO2 50 mmHg (35-45) H 08/15/17 04:06 ABG pO2 70 mmHg (85-104) L 08/15/17 04:06 ABG O2 Saturation 93 % (95-98) L 08/15/17 04:06 PT/INR, D-dimer PT 17.2 Seconds (9.4-12.1) H 08/15/17 01:15 Abnormal lab findings: Abnormal lab results WBC 17.7 K/mcL (4.3-11.1) H D 08/15/17 05:02 RBC 2.79 M/mcL (4.19-5.50) L 08/15/17 05:02 Hgb 7.9 g/dL (12.9-16.9) L 08/15/17 05:02 Hct 26.2 % (37.5-50.1) L 08/15/17 05:02 MCHC 30.2 g/dL (31.6-35.5) L 08/15/17 05:02 RDW 17.5 % (11.5-14.5) H 08/15/17 05:02 Plt Count 125 K/mcL (140-400) L 08/15/17 05:02 Neutrophils # 15.8 K/mcL (1.6-8.9) H 08/15/17 05:02 Lymphocytes # 0.4 K/mcL (0.6-4.6) L 08/15/17 05:02 PT 17.2 Seconds (9.4-12.1) H 08/15/17 01:15 APTT 38.2 Seconds (26.0-36.0) H 08/15/17 01:15 ABG pCO2 50 mmHg (35-45) H 08/15/17 04:06 ABG pO2 70 mmHg (85-104) L 08/15/17 04:06 ABG HCO3 30 mEq/L (21-27) H 08/15/17 04:06 ABG Total CO2 32 mEq/L (20-26) H 08/15/17 04:06 ABG O2 Saturation 93 % (95-98) L 08/15/17 04:06 ABG Base Excess 5 mEq/L (-2 to 3) H 08/15/17 04:06 Sodium 151 mEq/L (136-145) H 08/15/17 05:02 BUN 43 mg/dL (8-26) H 08/15/17 05:02 Creatinine 1.38 mg/dL (0.72-1.25) H 08/15/17 05:02 Est GFR (Non-Af Amer) 50 (> 60) L 08/15/17 05:02 BUN/Creatinine Ratio 31 (6-26) H 08/15/17 05:02 Glucose 211 mg/dL (70-99) H 08/15/17 05:02 POC Glucose 171 (58-89) H 08/15/17 05:04 Hemoglobin A1c 7.4 % (-5.6) H 08/15/17 05:02 Calculated Osmolality 329 (280-300) H 08/15/17 05:02 Calcium 7.7 mg/dL (8.6-10.8) L 08/15/17 05:02 Magnesium 1.1 mg/dL (1.6-2.6) L 08/15/17 05:02 AST 68 Units/L (5-34) H 08/15/17 05:02 Troponin I 0.69 ng/mL (0-0.03) H* 08/15/17 05:02 Serum Total Protein 4.6 g/dL (6.0-8.3) L 08/15/17 05:02 Albumin 1.9 g/dL (3.5-5.0) L 08/15/17 05:02 Albumin/Globulin Ratio 0.7 (1.1-2.2) L 08/15/17 05:02 Urine Clarity Turbid (Clear) A 08/14/17 20:57 Urine Protein >=300 mg/dL (Neg-Trace) H 08/14/17 20:57 Urine Ketones Trace mg/dL (Negative) H 08/14/17 20:57 Urine Blood Large (Negative) H 08/14/17 20:57 Ur Leukocyte Esterase Large (Negative) H 08/14/17 20:57 Urine Microscopic RBC TNTC per hpf (0-3) H 08/14/17 20:57 Urine Microscopic WBC TNTC per hpf (0-3) H 08/14/17 20:57 Urine Yeast Few per hpf (None Seen) H 08/14/17 20:57 Ur Culture Indicated? YES (NO) A 08/14/17 20:57 - Clinical Findings Intake & Output: Intake & Output 08/14/17 08/15/17 08/15/17 23:59 07:59 15:59 Intake Total 424 / 424 Output Total 250 / 250 Balance 174 / 174 Weight 81.7 kg - Attending Attestation I examined this patient and my medical decision-making was reviewed with the Resident Physician. I agree with the documented findings, disposition and treatment plan as described except to the extent set forth below. We independently had [id number] contact with the patient I spent 34min of Critical Care time with this patient. It involved decision making of high complexity to assess, manipulate, and support vital organ system failure and/or to prevent further life threatening deterioration of the patient' s condition. The time involved in the performance of separately reportable procedures was not counted toward critical care time. Patient seen and examined at bedside Labs, radiology, chart personally reviewed. Management was reviewed during multidisciplinary critical care rounds. Neuropsych: s/p Cardiac arrest. Head Ct pending. Encouragingly patient is now awake and able to follow commands. Pulm:acute hypoxic respiratory failure on vent not candidate for SBT today because of cardiac instability. CXR notable f/o what appears to be cardiogenic pulmonary edema. CTA to R/o PE given unclear mechanism of acute cardiac arrest. Acceptable oxygenation and ventilation related to Cards: S/p PEA Arrest with ROSC after approx 20min. Remains in Shock ? cardiogenic related to acute arrest. mild Trop elevated without evidence of STEMI ECHO pending. suspect Type 2 demand ischemia. Cont vasopressor for goal MAP 65. Patient was hypothermic on arrival precluding hypothermia protocol. FEN-GI:PPi prophylaxis pending UOP has been low we will follow his lytes. and SCR twice daily. and replace per protocol Renal: Scr elevated but near baseline. ID: Covered for possible Sepsis with underlying LE ulcers on antibiotics. (Vanc/ Zosyn). we will consider ID consult based upon course. INFANTE Ct pending to ascertain source/control Heme/Onc: DVT prophylaxis Given. Endo: Glucose Monitored and appropriate. Cont Bolus dosing insulin. Integ/MSK: Skin Care per routine ICU Nursing Protocol to prevent ulcers. Lines: All lines examined without evidence of infection Dispo: Remains Critically ill. We will make every effort to contact [facility]. CODE:Full Code.
[2017-08-15] MEDS: Piperacillin/Tazobactam 3.375 GM in D5% in Water (Mini-Bag+) 100 ML IVPB SCH ×3 (08:57→23:39)
[2017-08-15] MEDS: Chlorhexidine Rinse 15 ML MOUTHWASH MM SCH ×2 (08:57→20:09)
[2017-08-15] MEDS ORDERED: Potassium Phosphate 44 MEQ in 0.9 % Sodium Chloride 250 ML IVPB PRN (11:13)
--- NOTE | 2017-08-15 13:49 | Cardiology Consult Note ---
Date of Encounter: 08/15/17 Time of Encounter: 02:40 Assessment and Plan (1) Cardiac arrest Current Visit: Yes Status: Acute Cardiac arrest x2, resuscitated and achieved ROSC. Currently in sinus bradycardia with an average of 54 bpm over the last 12 hrs, PVCs seen on telemetry. EF 45% today is improved from echo 3 weeks ago. Cath 3 weeks ago showed 2 vessel moderate disease being medically managed. Elevated troponins likely 2/2 cardiopulmonary arrest. Unknown cause of arrest but less likelihood of UT as patient just had cath showing no blockage. No previous hx of arrhythmia. No further recommendations at this time. Will await neurological progression in the next couple of days and will consider further cardiac management based on prognosis. (2) Elevated troponin Current Visit: No Status: Resolved Elevated troponin= 1.08 (0.69, 0.14) Likely due to ischemia due 2/2 cardiopulmonary arrest. No further recommendations at this time as will await neurological progression over the next couple of days to determine benefit of further cardiac work-up. Discussion w patient/family: The assessment and plan as outlined above was discussed with the patient and/or family members who expressed understanding and agreement. All questions were answered. Thank you for involving us in the care of your patient. Please call with any questions. History of Present Illness Consult date: 08/15/17 Requesting physician: Jayson Peterson Consult reason: cardiac arrest, elevated troponin Chief complaint: cardiopulmonary arrest History of present illness: Mr. Mayorga is a 77 year old male presented from an [facility] with a pmh of CHF with preserved EF, CAD with moderate 2 vessel disease (last cath 07/23/17), HTN, HLD , DM2, and former smoker (>10 years ago) presented to the ED in cardiopulmonary arrest and elevated troponins. Patient was in the hospital admitted on 07/15/17 found to be in CHF and had a LHC on 07/23/17 showing moderate 2 vessel disease , non-obstructive (50% ostial LAD, 40% mid LAD, 65% distal RCA) no intervention warranted. Last night patient arrested twice and was in asystole and achieved ROSC. Patient is now intubated on mechanical ventilation and in the ICU on IV fluids, antibiotics, and IV pressor support. All information was obtained from [facility] and [facility]. Echo today showed ER 45% with RV size and function normal and mild inferior, basal inferior, mid infereior setal and basal inferior setal wall hypokinetic. previous echo 07/24/17 Echo showed LVEF 35-40%, Moderate global and segmental left ventricular systolic dysfunction, Moderate pulmonary hypertension, Moderate -severe pulmonic regurgitation. Past Med Surg Social Fam HX - Past Medical History Medical history: COPD, coronary artery disease, diabetes, hyperlipidemia, hypertension Psychiatric history: no psych history - Past Surgical History Surgical History: no surgical history - Social History Smoking Status: Unknown if ever smoked Smokeless Tobacco Status: No Alcohol use: none Drug use: none - Family History Mother Family Member Ethnicity: Non- Living Status: Hx Family Cardiac Disorders: Yes (CAD) Hx Family Endocrine Disorder: Yes (DM) Father Family Member Ethnicity: Non- Living Status: Hx Family Cardiac Disorders: Yes (HD) Hx Family Respiratory Disorders: Yes (Emphysema) Brother Family Member Ethnicity: Non- Living Status: Still Living Hx Family Cardiac Disorders: Yes (HD, HTN) Hx Family Endocrine Disorder: Yes (DM) Sister Family Member Ethnicity: Non- Living Status: Hx Family Endocrine Disorder: Yes (DM) Medications and Allergies Aspirin 325 mg PO DAILY tablet 08/07/17 [Rx] Atorvastatin [Lipitor] 40 mg PO HS tablet 08/07/17 [Rx] Carvedilol [Coreg] 25 mg PO BIDWM tablet 08/07/17 [Rx] Clopidogrel [Plavix] 75 mg PO DAILY tablet 08/07/17 [Rx] Furosemide [Lasix] 40 mg PO DAILY tablet 08/07/17 [Rx] Lisinopril [Zestril] 2.5 mg PO DAILY tablet 08/07/17 [Rx] Magnesium Oxide [Mag-Ox] 400 mg PO DAILY tablet 08/07/17 [Rx] Nitroglycerin 0.4 mg SL Q5MIN PRN tab.subl 08/07/17 [Rx] Omeprazole [PriLOSEC] 20 mg PO DAILY@0630 capsule.dr 08/07/17 [Rx] OxyCODONE Immed Rel [Roxicodone 5 MG] 10 mg PO Q8HR PRN #10 tablet 08/07/17 [Rx] Potassium Chloride 20 meq PO DAILY tab.er.prt 08/07/17 [Rx] Zinc Sulfate 220 mg PO DAILY capsule 08/07/17 [Rx] amLODIPine [Norvasc] 10 mg PO DAILY tablet 08/07/17 [Rx] Clotrimazole/Betamethasone Dip [Lotrisone Cream] 1 appl TP DAILY 08/15/17 [ History] Collagenase Oint [Santyl] 1 appl TP BID 08/15/17 [History] Insulin LISPRO [HumaLOG] 0 units SQ TID PRN 08/15/17 [History] Levofloxacin 750 MG/150 ML [Levaquin Premix 750mg/150 mL] 750 mg IVPB DAILY 11/30 [History] Melatonin 5 mg PO HS 08/15/17 [History] Vancomycin/0.9 % Sod Chloride [Vanco 1.25 gm/250 ml-0.9% NaCl] 1.25 gm IV DAILY 08/15/17 [History] 3 Allergy/AdvReac Type Severity Reaction Status Date / Time No Known Allergies Allergy Verified 07/03/15 17:42 All Systems Review: A 10-system review of systems was performed and is negative for pertinent findings except as documented above in the HPI. Physical Examination Vital Signs, Last 4 Hours Temp Pulse Resp BP Pulse Ox 08/15/17 12:18 94.1 F L 51 12 94/39 57 08/15/17 11:38 94.1 F L 08/15/17 11:07 12 107/54 97 08/15/17 11:00 54 16 106/51 100 08/15/17 10:00 57 16 112/53 100 General: Other (intubated, not following commands but withdrawling from painful stimuli ) HEENT: Normocephaly, Mucus Membranes Moist Neck: Normal carotid pulses Cardiac: No Murmur, Other (bradycardia regular rhythm ) Neuro: Other (currently intubated, not following commands, pulling away from painful stimuli ) Abdomen: Soft, Non-Tender Skin: Other (bruising on L hand, on abdomen. bilateral LE from ankle down wrapped in dressing, no change in skin color ) Results 08/15/17 05:02 08/15/17 05:02 Lab Results 08/15/17 08/15/17 08/15/17 01:15 05:02 05:02 WBC 17.7 H D Hgb 7.9 L Hct 26.2 L Plt Count 125 L INR 1.6 APTT 38.2 H Sodium Potassium Chloride Carbon Dioxide BUN Creatinine Glucose Calcium Magnesium Total Bilirubin AST ALT Alkaline Phosphatase Troponin I 0.69 H* 08/15/17 08/15/17 05:02 12:00 WBC Hgb Hct Plt Count INR APTT Sodium 151 H Potassium 3.9 Chloride 109 Carbon Dioxide 29 BUN 43 H Creatinine 1.38 H Glucose 211 H Calcium 7.7 L Magnesium 1.1 L Total Bilirubin 0.6 AST 68 H ALT 53 Alkaline Phosphatase 114 Troponin I 1.08 H* Consult Discharge Plan - Plan Referrals: Poncho Noriega MD [Primary Care Provider] -
[2017-08-15 14:45] LABS: Ionized Calcium 1.11 mmol/L (1.15-1.35)
[2017-08-15 14:50] LABS: Phosphorous 3.8 mg/dL (2.3-4.7)
[2017-08-15] MEDS ORDERED: Aspirin Enteric Coated 81 MG Tablet PO SCH (19:00)
[2017-08-15] MEDS: Norepinephrine 4 MG in D5% in Water 250 ML IVC SCH (19:51)
[2017-08-15] MEDS: Aspirin 81 MG TAB.CHEW PO SCH (20:09)
[2017-08-15] MEDS: Heparin 25,000 UNIT/500 ML D5W 25,000 UNIT/500 ML MLS IVC SCH (20:09)
[2017-08-15] MEDS ORDERED: Vancomycin 1,250 MG in D5% in Water 250 ML IVPB SCH (23:00)
[2017-08-16] MEDS ORDERED: *HR* LORazepam 2 MG/ML VIAL ONE (00:59)
--- NOTE | 2017-08-16 01:07 | Event Note ---
Date of Encounter: 08/16/17 Time of Encounter: 01:05 Called by RN for concerns of possible seizure activity. I ordered Ativan IV PRN seizures. I called and discussed with Neurology re: loading with AED's. Dr. Finley recommends starting Keppra 500 mg IV BID, which I ordered.
[2017-08-16] MEDS ORDERED: *HR* LORazepam 2 MG/ML VIAL IVP ONE (01:09)
[2017-08-16] MEDS ORDERED: *HR* LORazepam 2 MG/ML VIAL IVP PRN (01:09)
[2017-08-16 02:20] LABS: INR 1.7
[2017-08-16 02:24] LABS: Basophils % 0.2 %; Eosinophils % 0.1 %; Hematocrit 23.8 % (37.5-50.1); Hemoglobin 7.6 g/dL (12.9-16.9); Immature Granulocytes % 0.7 % (0-4); Lymphocytes # 0.7 K/mcL (0.6-4.6); Lymphocytes % 4.9 %; Mean Corpuscular HGB Conc 31.9 g/dL (31.6-35.5); Mean Corpuscular Hemoglobin 29.1 pg (28.0-33.3); Mean Corpuscular Volume 91.2 fL (83.0-100.0); Mean Platelet Volume 13.4 fL (9.4-12.4); Monocytes # 1.2 K/mcL (0.0-1.3); Monocytes % 8.7 %; Neutrophils # 11.6 K/mcL (1.6-8.9); Platelet Count 128 K/mcL (140-400); Red Blood Count 2.61 M/mcL (4.19-5.50); Segmented Neutrophils % 85.4 %
[2017-08-16 02:27] LABS: Albumin/Globulin Ratio 0.8 (1.1-2.2); Bilirubin,Direct 0.4 mg/dL (0.0-0.5); Bilirubin,Indirect 0.2 mg/dL (0.0-1.2); Bilirubin,Total 0.6 mg/dL (0.2-1.2); Calcium 7.6 mg/dL (8.6-10.8); Globulin 2.5 g/dL (2.4-3.5); Magnesium 1.9 mg/dL (1.6-2.6); Phosphorous 4.2 mg/dL (2.3-4.7); Total Protein 4.4 g/dL (6.0-8.3)
[2017-08-16 02:28] LABS: Albumin 1.9 g/dL (3.5-5.0)
[2017-08-16 03:48] LABS: Activated Partial Thrombo Time > 360.0 Seconds (26.0-36.0)
[2017-08-16] MEDS: Calcium Gluconate 1,000 MG in D5% in Water 100 ML IVPB PRN ×3 (03:54→14:59)
[2017-08-16] MEDS: Lacri-Lube 3.5 GM TUBE BOTH EYES SCH ×5 (03:54→19:54)
[2017-08-16 04:05] LABS: ABG Base Excess 9 mEq/L (-2 to 3); ABG HCO3 34 mEq/L (21-27); ABG Oxygen Saturation 97 % (95-98); ABG PCO2 50 mmHg (35-45); ABG PH 7.44 pH Units (7.32-7.45); ABG PO2 86 mmHg (85-104); ABG TCO2 36 mEq/L (20-26); Blood Gas Modality VC
[2017-08-16] MEDS: Norepinephrine 4 MG in D5% in Water 250 ML IVC SCH (05:51)
[2017-08-16] MEDS: Pantoprazole 40 MG VIAL IVPB SCH (06:00)
[2017-08-16] MEDS: Insulin LISPRO 300 UNITS/3 ML VIAL SQ SCH ×3 (06:01→19:43)
[2017-08-16] MEDS: Budesonide/Formoterol 160/4.5 MDI IH SCH ×2 (07:40→19:33)
[2017-08-16] MEDS: Aspirin 81 MG TAB.CHEW PO SCH (09:00)
[2017-08-16] MEDS: Chlorhexidine Rinse 15 ML MOUTHWASH MM SCH ×2 (09:00→21:16)
--- NOTE | 2017-08-16 09:04 | Pulmonology Progress Note ---
<Yohana Ocasio - Last Filed: 08/16/17 09:03> Date of Encounter: 08/16/17 Time of Encounter: 09:00 Objective PUL Vital signs: Last Vital Signs Temp 97.9 F 08/16/17 07:27 Pulse 59 08/16/17 06:00 Resp 12 08/16/17 07:40 BP 111/43 08/16/17 07:40 Pulse Ox 97 08/16/17 07:40 Ventilator Settings Ventilator Settings: Ventilator Settings, Last 8 Hours Ventilator Mode VC+ Ventilator Mode VC+ Ventilator Mode VC+ Ventilator Mode VC+ Ventilator Mode VC+ Ventilator Mode VC+ Ventilator Mode VC+ Ventilator Mode VC+ Ventilator Mode VC+ Ventilator Mode VC+ Ventilator Tidal Volume 500 Setting Ventilator Tidal Volume 500 Setting Ventilator Tidal Volume 500 Setting Ventilator Tidal Volume 500 Setting Ventilator Tidal Volume 500 Setting Ventilator Tidal Volume 500 Setting Ventilator Tidal Volume 500 Setting Ventilator Tidal Volume 500 Setting Ventilator Tidal Volume 500 Setting Ventilator Tidal Volume 500 Setting Ventilator Respiratory Rate 12 Setting Ventilator Respiratory Rate 12 Setting Ventilator Respiratory Rate 12 Setting Ventilator Respiratory Rate 12 Setting Ventilator Respiratory Rate 12 Setting Ventilator Respiratory Rate 12 Setting Ventilator Respiratory Rate 12 Setting Ventilator Respiratory Rate 12 Setting Ventilator Respiratory Rate 12 Setting Ventilator Respiratory Rate 12 Setting Actual Respiratory Rate 12 Actual Respiratory Rate 12 Actual Respiratory Rate 13 Actual Respiratory Rate 12 Actual Respiratory Rate 13 Actual Respiratory Rate 12 Actual Respiratory Rate 12 Actual Respiratory Rate 12 Actual Respiratory Rate 16 Positive End Expiratory 5 Pressure Positive End Expiratory 5 Pressure Positive End Expiratory 5 Pressure Positive End Expiratory 5 Pressure Positive End Expiratory 5 Pressure Positive End Expiratory 5 Pressure Positive End Expiratory 5 Pressure Positive End Expiratory 5 Pressure Positive End Expiratory 5 Pressure Positive End Expiratory 5 Pressure Peak Inspiratory Airway 27 Pressure Peak Inspiratory Airway 23 Pressure Peak Inspiratory Airway 27 Pressure Peak Inspiratory Airway 25 Pressure Peak Inspiratory Airway 27 Pressure Peak Inspiratory Airway 25 Pressure Peak Inspiratory Airway 35 Pressure Peak Inspiratory Airway 31 Pressure Peak Inspiratory Airway 26 Pressure Results - Laboratory Findings CBC and BMP: 08/16/17 02:02 08/16/17 02:02 ABG ABG pH 7.44 pH Units (7.32-7.45) 08/16/17 04:02 ABG pCO2 50 mmHg (35-45) H 08/16/17 04:02 ABG pO2 86 mmHg (85-104) 08/16/17 04:02 ABG O2 Saturation 97 % (95-98) 08/16/17 04:02 PT/INR, D-dimer PT 19.0 Seconds (9.4-12.1) H 08/16/17 02:02 Abnormal lab findings: Abnormal lab results WBC 13.6 K/mcL (4.3-11.1) H 08/16/17 02:02 RBC 2.61 M/mcL (4.19-5.50) L 08/16/17 02:02 Hgb 7.6 g/dL (12.9-16.9) L 08/16/17 02:02 Hct 23.8 % (37.5-50.1) L 08/16/17 02:02 RDW 18.0 % (11.5-14.5) H 08/16/17 02:02 Plt Count 128 K/mcL (140-400) L 08/16/17 02:02 MPV 13.4 fL (9.4-12.4) H 08/16/17 02:02 Neutrophils # 11.6 K/mcL (1.6-8.9) H 08/16/17 02:02 PT 19.0 Seconds (9.4-12.1) H 08/16/17 02:02 APTT 92.0 Seconds (26.0-36.0) H D 08/16/17 05:57 ABG pCO2 50 mmHg (35-45) H 08/16/17 04:02 ABG HCO3 34 mEq/L (21-27) H 08/16/17 04:02 ABG Total CO2 36 mEq/L (20-26) H 08/16/17 04:02 ABG Base Excess 9 mEq/L (-2 to 3) H 08/16/17 04:02 Sodium 149 mEq/L (136-145) H 08/16/17 02:02 Carbon Dioxide 30 mEq/L (19-29) H 08/16/17 02:02 BUN 48 mg/dL (8-26) H 08/16/17 02:02 Creatinine 1.96 mg/dL (0.72-1.25) H 08/16/17 02:02 Est GFR ( Amer) 41 (> 60) L 08/16/17 02:02 Est GFR (Non-Af Amer) 34 (> 60) L 08/16/17 02:02 Glucose 184 mg/dL (70-99) H 08/16/17 02:02 POC Glucose 213 (58-89) H 08/16/17 05:57 Hemoglobin A1c 7.4 % (-5.6) H 08/15/17 05:02 Calculated Osmolality 325 (280-300) H 08/16/17 02:02 Calcium 7.6 mg/dL (8.6-10.8) L 08/16/17 02:02 Ionized Calcium 1.04 mmol/L (1.15-1.35) L 08/16/17 02:02 AST 44 Units/L (5-34) H 08/16/17 02:02 Troponin I 1.08 ng/mL (0-0.03) H* 08/15/17 12:00 Serum Total Protein 4.4 g/dL (6.0-8.3) L 08/16/17 02:02 Albumin 1.9 g/dL (3.5-5.0) L 08/16/17 02:02 Albumin/Globulin Ratio 0.8 (1.1-2.2) L 08/16/17 02:02 Urine Clarity Turbid (Clear) A 08/14/17 20:57 Urine Protein >=300 mg/dL (Neg-Trace) H 08/14/17 20:57 Urine Ketones Trace mg/dL (Negative) H 08/14/17 20:57 Urine Blood Large (Negative) H 08/14/17 20:57 Ur Leukocyte Esterase Large (Negative) H 08/14/17 20:57 Urine Microscopic RBC TNTC per hpf (0-3) H 08/14/17 20:57 Urine Microscopic WBC TNTC per hpf (0-3) H 08/14/17 20:57 Urine Yeast Few per hpf (None Seen) H 08/14/17 20:57 Ur Culture Indicated? YES (NO) A 08/14/17 20:57 - Microbiology Findings Microbiology Findings: Microbiology, Last 48 Hours 08/15/17 01:15 Blood Culture - Preliminary Peripheral Venipuncture No growth. 08/14/17 22:34 Blood Culture - Preliminary Peripheral Venipuncture No growth. - Clinical Findings Intake & Output: Intake & Output 08/15/17 08/16/17 08/16/17 23:59 07:59 15:59 Intake Total 190 / 190 854 / 854 Output Total 200 / 200 100 / 100 Balance -10 / -10 754 / 754 Weight 86.1 kg Consult Discharge Plan - Plan Referrals: Poncho Noriega MD [Primary Care Provider] - <Robert Rodriguez W - Last Filed: 08/16/17 10:47> Date of Encounter: 08/16/17 Objective PUL Vital signs: Last Vital Signs Temp 97.9 F 08/16/17 09:30 Pulse 57 08/16/17 09:30 Resp 12 08/16/17 09:30 BP 108/44 08/16/17 09:30 Pulse Ox 98 08/16/17 09:30 Ventilator Settings Ventilator Settings: Ventilator Settings, Last 8 Hours Ventilator Mode VC+ Ventilator Mode VC+ Ventilator Mode VC+ Ventilator Mode VC+ Ventilator Mode VC+ Ventilator Mode VC+ Ventilator Mode VC+ Ventilator Mode VC+ Ventilator Mode VC+ Ventilator Mode VC+ Ventilator Mode VC+ Ventilator Mode VC+ Ventilator Tidal Volume 500 Setting Ventilator Tidal Volume 500 Setting Ventilator Tidal Volume 500 Setting Ventilator Tidal Volume 500 Setting Ventilator Tidal Volume 500 Setting Ventilator Tidal Volume 500 Setting Ventilator Tidal Volume 500 Setting Ventilator Tidal Volume 500 Setting Ventilator Tidal Volume 500 Setting Ventilator Tidal Volume 500 Setting Ventilator Tidal Volume 500 Setting Ventilator Tidal Volume 500 Setting Ventilator Respiratory Rate 12 Setting Ventilator Respiratory Rate 12 Setting Ventilator Respiratory Rate 12 Setting Ventilator Respiratory Rate 12 Setting Ventilator Respiratory Rate 12 Setting Ventilator Respiratory Rate 12 Setting Ventilator Respiratory Rate 12 Setting Ventilator Respiratory Rate 12 Setting Ventilator Respiratory Rate 12 Setting Ventilator Respiratory Rate 12 Setting Ventilator Respiratory Rate 12 Setting Ventilator Respiratory Rate 12 Setting Actual Respiratory Rate 12 Actual Respiratory Rate 12 Actual Respiratory Rate 12 Actual Respiratory Rate 12 Actual Respiratory Rate 12 Actual Respiratory Rate 13 Actual Respiratory Rate 12 Actual Respiratory Rate 13 Actual Respiratory Rate 12 Actual Respiratory Rate 12 Actual Respiratory Rate 12 Positive End Expiratory 5 Pressure Positive End Expiratory 5 Pressure Positive End Expiratory 5 Pressure Positive End Expiratory 5 Pressure Positive End Expiratory 5 Pressure Positive End Expiratory 5 Pressure Positive End Expiratory 5 Pressure Positive End Expiratory 5 Pressure Positive End Expiratory 5 Pressure Positive End Expiratory 5 Pressure Positive End Expiratory 5 Pressure Positive End Expiratory 5 Pressure Peak Inspiratory Airway 27 Pressure Peak Inspiratory Airway 27 Pressure Peak Inspiratory Airway 27 Pressure Peak Inspiratory Airway 27 Pressure Peak Inspiratory Airway 23 Pressure Peak Inspiratory Airway 27 Pressure Peak Inspiratory Airway 25 Pressure Peak Inspiratory Airway 27 Pressure Peak Inspiratory Airway 25 Pressure Peak Inspiratory Airway 35 Pressure Peak Inspiratory Airway 31 Pressure Results - Laboratory Findings CBC and BMP: 08/16/17 02:02 08/16/17 02:02 ABG ABG pH 7.44 pH Units (7.32-7.45) 08/16/17 04:02 ABG pCO2 50 mmHg (35-45) H 08/16/17 04:02 ABG pO2 86 mmHg (85-104) 08/16/17 04:02 ABG O2 Saturation 97 % (95-98) 08/16/17 04:02 PT/INR, D-dimer PT 19.0 Seconds (9.4-12.1) H 08/16/17 02:02 Abnormal lab findings: Abnormal lab results WBC 13.6 K/mcL (4.3-11.1) H 08/16/17 02:02 RBC 2.61 M/mcL (4.19-5.50) L 08/16/17 02:02 Hgb 7.6 g/dL (12.9-16.9) L 08/16/17 02:02 Hct 23.8 % (37.5-50.1) L 08/16/17 02:02 RDW 18.0 % (11.5-14.5) H 08/16/17 02:02 Plt Count 128 K/mcL (140-400) L 08/16/17 02:02 MPV 13.4 fL (9.4-12.4) H 08/16/17 02:02 Neutrophils # 11.6 K/mcL (1.6-8.9) H 08/16/17 02:02 PT 19.0 Seconds (9.4-12.1) H 08/16/17 02:02 APTT 92.0 Seconds (26.0-36.0) H D 08/16/17 05:57 ABG pCO2 50 mmHg (35-45) H 08/16/17 04:02 ABG HCO3 34 mEq/L (21-27) H 08/16/17 04:02 ABG Total CO2 36 mEq/L (20-26) H 08/16/17 04:02 ABG Base Excess 9 mEq/L (-2 to 3) H 08/16/17 04:02 Sodium 149 mEq/L (136-145) H 08/16/17 02:02 Carbon Dioxide 30 mEq/L (19-29) H 08/16/17 02:02 BUN 48 mg/dL (8-26) H 08/16/17 02:02 Creatinine 1.96 mg/dL (0.72-1.25) H 08/16/17 02:02 Est GFR ( Amer) 41 (> 60) L 08/16/17 02:02 Est GFR (Non-Af Amer) 34 (> 60) L 08/16/17 02:02 Glucose 184 mg/dL (70-99) H 08/16/17 02:02 POC Glucose 213 (58-89) H 08/16/17 05:57 Hemoglobin A1c 7.4 % (-5.6) H 08/15/17 05:02 Calculated Osmolality 325 (280-300) H 08/16/17 02:02 Calcium 7.6 mg/dL (8.6-10.8) L 08/16/17 02:02 Ionized Calcium 1.06 mmol/L (1.15-1.35) L 08/16/17 09:10 AST 44 Units/L (5-34) H 08/16/17 02:02 Troponin I 1.08 ng/mL (0-0.03) H* 08/15/17 12:00 Serum Total Protein 4.4 g/dL (6.0-8.3) L 08/16/17 02:02 Albumin 1.9 g/dL (3.5-5.0) L 08/16/17 02:02 Albumin/Globulin Ratio 0.8 (1.1-2.2) L 08/16/17 02:02 Urine Clarity Turbid (Clear) A 08/14/17 20:57 Urine Protein >=300 mg/dL (Neg-Trace) H 08/14/17 20:57 Urine Ketones Trace mg/dL (Negative) H 08/14/17 20:57 Urine Blood Large (Negative) H 08/14/17 20:57 Ur Leukocyte Esterase Large (Negative) H 08/14/17 20:57 Urine Microscopic RBC TNTC per hpf (0-3) H 08/14/17 20:57 Urine Microscopic WBC TNTC per hpf (0-3) H 08/14/17 20:57 Urine Yeast Few per hpf (None Seen) H 08/14/17 20:57 Ur Culture Indicated? YES (NO) A 08/14/17 20:57 - Microbiology Findings Microbiology Findings: Microbiology, Last 48 Hours 08/15/17 01:15 Blood Culture - Preliminary Peripheral Venipuncture No growth. 08/14/17 22:34 Blood Culture - Preliminary Peripheral Venipuncture No growth. - Clinical Findings Intake & Output: Intake & Output 08/15/17 08/16/17 08/16/17 23:59 07:59 15:59 Intake Total 190 / 190 854 / 854 Output Total 200 / 200 100 / 100 Balance -10 / -10 754 / 754 Weight 86.1 kg - Attending Attestation I examined this patient and my medical decision-making was reviewed with the Resident Physician. I agree with the documented findings, disposition and treatment plan as described except to the extent set forth below. We independently had [id number] contact with the patient. Patient seen and examined at bedside Labs, radiology, chart personally reviewed. Management was reviewed during multidisciplinary critical care rounds. Neuropsych: s/p Cardiac arrest. Head Ct w/o acute process. Possible Seziure activity loaded with Keppra. EEG pending. Neuro consult based upon results as no further activity noted. More encephalopathic today. Pulm:acute hypoxic respiratory failure suspected aspiration. CTA negative for PE. on vent SBT precluded because of mental status. Minimal vent support with acceptable oxygenation and ventilation. Assess daily for Cards: S/p PEA Arrest with ROSC after approx 20min. Shock has resolved. ECHO shows HFrEF. Appreciate Cardiology recs- no acute intervention. Andrews has had intermittent bradycardia with junctional rhythm this has resolved. Appears Volume overloaded (anascarca/Pleural effsuions). Possibly intrvascularly depleted however trial of crystalloid infusion yesterday did not significant alert hemodynamics/UOP. He has had a NSTEMI likely s/t to Demand Ischemia/CPR. Cont statin Low dose BB and ASA. and Heparin gtt x 48 hours FEN-GI:PPi prophylaxis start trophic enteral nutrition today. Renal: YUMIKO worsening Suspect. ATN and possible vancomycin (dose adjusted by pharmacy today) remains oliguric. Nephro consult. Colloid Challenge Today. ID: Likely Sepsis (concerning for Aspiration) complicated by underlying LE ulcers on antibiotics. (Vanc/Zosyn). we will consider ID consult based upon course. Cultures Pending Berna in Urine cont to monitor Heme/Onc: H/H stable. Ok to cont Heparin Infusion. Endo: Glucose Monitored and appropriate. Cont Bolus dosing insulin. Integ/MSK: Skin Care per routine ICU Nursing Protocol to prevent ulcers. Wound Care consult Lines: All lines examined without evidence of infection Dispo: Remains Critically ill. We will make every effort to contact [facility]. CODE:Full Code. Family updated. Overall Poor prognosis Pallitiave care consult
[2017-08-16 09:35] LABS: Ionized Calcium 1.06 mmol/L (1.15-1.35)
[2017-08-16 09:38] LABS: Magnesium 2.5 mg/dL (1.6-2.6)
--- NOTE | 2017-08-16 11:06 | Palliative - Consult Note ---
<Santos Bird - Last Filed: 08/16/17 11:30> Date of Encounter: 08/16/17 Time of Encounter: 11:02 - Assessment and Plan (1) Goals of care, counseling/discussion Current Visit: Yes Status: Acute Assessment and plan: Fullcode no IKERA has brother and son, unknown if he has other children no advanced directives patient's brother called twice but no answer. Left message for brother to call back. Patient had witnessed cardiac arrest, now on norepinephrine, intubated not sedated. GCS 10. Possible seizures overnight eeg pending. prognosis in this situation is poor. Reviewing previous records patients mental status waxes and wanes. CT scan negative for acute infarct. At this point patient is able to squeeze hand upon asking and also moves his toes when asked. He opes eyes when asked. neurological exam improved from admission as admission note states patient was minimally responsive. (2) Cardiac arrest Current Visit: Yes Status: Acute Assessment and plan: Witnessed cardiac arrest patient now intubated not sedated BP supported with norepinephrine Repeat echo shows EF 45 percent which is slight improvement from previous. LHC 3 weeks ago showed 2 vessel moderate disease and patient was medically managed Patient's GCS scale is 10: opens eyes to verbal command and moves all four extremities when asked on heparin drip plan as per primary (3) Acute kidney injury Current Visit: No Status: Acute Assessment and plan: 2nd to cardiopulmonary arrest worsening nephrology consulted patient fluid overloaded: 2+ LE edema. (4) Diabetic ulcer of both feet Current Visit: Yes Status: Chronic Assessment and plan: being treated for MRSA, enterococuss, proteus mirabilis, and klebsiella infection on vanc and zosyn Palliative-CN HPI - Data of Consult Consult date: 08/16/17 Requesting Physician: Gary See MD Primary Care Provider: Poncho Noriega MD - Consult Narrative Reason for consult: Cardiac arrest, poor neurological status History of present illness: Mr. Mayorga is a 77 year old male presented from [facility] after having a witnessed cardiac arrest. After CPR, patient had ROSC and thereafter he had another cardiopulmonary arrest in the ER and achieved ROSC again. Patient is intubated , and admitted to ICU. On admission he had minimal neurological activity. Patient was not sedated. CT of chest showed multiple rib fractures secondary to CPR. CT head was negative for acute infarct. Overnight patient had seizure activity and was started on Keppra. EEG is pending. There is concern about patient's neurological status. Patient has a brother who states that he is full code, does not have advanced directives and has never discussed and he wishes with the family. Patient has a son as well. Patient has an ECF facility being treated for diabetic foot ulcer with vancomycin and Zosyn. CC: Gary See MD Past Med Surg Social Fam HX - Past Medical History Medical history: COPD, coronary artery disease, diabetes, hyperlipidemia, hypertension Psychiatric history: no psych history - Past Surgical History Surgical History: no surgical history - Social History Smoking Status: Unknown if ever smoked Smokeless Tobacco Status: No Alcohol use: none Drug use: none - Family History Mother Family Member Ethnicity: Non- Living Status: Hx Family Cardiac Disorders: Yes (CAD) Hx Family Endocrine Disorder: Yes (DM) Father Family Member Ethnicity: Non- Living Status: Hx Family Cardiac Disorders: Yes (HD) Hx Family Respiratory Disorders: Yes (Emphysema) Brother Family Member Ethnicity: Non- Living Status: Still Living Hx Family Cardiac Disorders: Yes (HD, HTN) Hx Family Endocrine Disorder: Yes (DM) Sister Family Member Ethnicity: Non- Living Status: Hx Family Endocrine Disorder: Yes (DM) Medications and Allergies Aspirin 325 mg PO DAILY tablet 08/07/17 [Rx] Atorvastatin [Lipitor] 40 mg PO HS tablet 08/07/17 [Rx] Carvedilol [Coreg] 25 mg PO BIDWM tablet 08/07/17 [Rx] Clopidogrel [Plavix] 75 mg PO DAILY tablet 08/07/17 [Rx] Furosemide [Lasix] 40 mg PO DAILY tablet 08/07/17 [Rx] Lisinopril [Zestril] 2.5 mg PO DAILY tablet 08/07/17 [Rx] Magnesium Oxide [Mag-Ox] 400 mg PO DAILY tablet 08/07/17 [Rx] Nitroglycerin 0.4 mg SL Q5MIN PRN tab.subl 08/07/17 [Rx] Omeprazole [PriLOSEC] 20 mg PO DAILY@0630 capsule. 08/07/17 [Rx] OxyCODONE Immed Rel [Roxicodone 5 MG] 10 mg PO Q8HR PRN #10 tablet 08/07/17 [Rx] Potassium Chloride 20 meq PO DAILY tab.er.prt 08/07/17 [Rx] Zinc Sulfate 220 mg PO DAILY capsule 08/07/17 [Rx] amLODIPine [Norvasc] 10 mg PO DAILY tablet 08/07/17 [Rx] Clotrimazole/Betamethasone Dip [Lotrisone Cream] 1 appl TP DAILY 08/15/17 [ History] Collagenase Oint [Santyl] 1 appl TP BID 08/15/17 [History] Insulin LISPRO [HumaLOG] 0 units SQ TID PRN 08/15/17 [History] Levofloxacin 750 MG/150 ML [Levaquin Premix 750mg/150 mL] 750 mg IVPB DAILY 11/30 [History] Melatonin 5 mg PO HS 08/15/17 [History] Vancomycin/0.9 % Sod Chloride [Vanco 1.25 gm/250 ml-0.9% NaCl] 1.25 gm IV DAILY 08/15/17 [History] 3 Allergy/AdvReac Type Severity Reaction Status Date / Time No Known Allergies Allergy Verified 07/03/15 17:42 ROS unobtainable: due to endotracheal tube, due to mental status Palliative Care-Exam - Constitutional Vitals: Temp Pulse Resp BP Pulse Ox 97.9 F 56 14 112/44 97 08/16/17 09:30 08/16/17 10:00 08/16/17 10:00 08/16/17 10:00 08/16/17 10:00 - Other Additional findings: General: Intubated HEENT: Head atraumatic, normocephalic, PERRL, Heart: Sinus Bradycardic, no murmurs Lungs: Clear to auscultation bilaterally Abdomen: Soft nontender, nondistended. absent bowel sounds Skin: warm and dry Extremities:2+ pedal edema Neuro: alert, GCS 10: Opens eyes to verbal command, moves upper and lower extremity when asked, intubated. Vascular: Pedal and radial pulses 2 out of 4 Line: Left femoral CVC bleeding Internal Medicine - CN: Reslt - Labs CBC & Chem 7: 08/16/17 02:02 08/16/17 02:02 Labs: Short CBC 08/16/17 Range/Units 02:02 WBC 13.6 H (4.3-11.1) K/mcL Hgb 7.6 L (12.9-16.9) g/dL Hct 23.8 L (37.5-50.1) % Plt Count 128 L (140-400) K/mcL Neutrophils # 11.6 H (1.6-8.9) K/mcL BMP 08/16/17 02:02 Sodium 149 H Potassium 4.0 Chloride 108 Carbon Dioxide 30 H BUN 48 H Creatinine 1.96 H Glucose 184 H Calcium 7.6 L Cardiac Enzymes 08/15/17 Range/Units 12:00 Troponin I 1.08 H* (0-0.03) ng/mL Liver Function 08/16/17 Range/Units 02:02 Total Bilirubin 0.6 (0.2-1.2) mg/dL Direct Bilirubin 0.4 (0.0-0.5) mg/dL AST 44 H (5-34) Units/L ALT 44 (0-55) Units/L Alkaline Phosphatase 95 (38-126) Units/L Albumin 1.9 L (3.5-5.0) g/dL - ABG Interpretation ABG results: ABG ABG pH 7.44 pH Units (7.32-7.45) 08/16/17 04:02 ABG pCO2 50 mmHg (35-45) H 08/16/17 04:02 ABG pO2 86 mmHg (85-104) 08/16/17 04:02 ABG O2 Saturation 97 % (95-98) 08/16/17 04:02 PT/INR, D-dimer PT 19.0 Seconds (9.4-12.1) H 08/16/17 02:02 - Impressions Impressions Echocardiogram Limited Views 08/15/17 00:00 Impressions: Somewhat technically challenging study - patient intubated in ICU. Overall, LV systolic function appears mildly reduced, EF estimated at 45%. Recommend repeat Limited study with Definity when clinical status improves. RV size and function appear normal. Left Ventricular Wall Motion: Rest Echo Findings The mid inferior, basal inferior, mid inferior septal and basal inferior septal renae were hypokinetic. The mid anterior and basal anterior renae were not visualized. All other wall segments showed normal motion. Findings: Study Quality * Technically somewhat challenging exam - patient intubated. ECG Findings * Normal sinus rhythm. Right Ventricle * Normal right ventricular structure and function. Tricuspid Valve * Tricuspid valve not well visualized. * Trace tricuspid regurgitation. Left Ventricle * LVEF 45%. * Normal LV size and wall thickness. Consult Discharge Plan - Plan Referrals: Poncho Noriega MD [Primary Care Provider] - Palliative Quality Palliative Quality: Screen for Code Status: Yes, Screen for Goals of Care: Yes, Screen for Pain: No, If Pain Regimen Started, Initiate Bowel Regimen: Yes, Screen for Nausea/Vomitting: No Code Status: 08/15/17 00:52 Resuscitation Status: Active [RES] Routine Comment: Resuscitation Status: Full Code <Juwan Hennessy - Last Filed: 08/16/17 11:45> Date of Encounter: 08/16/17 Palliative-CN HPI - Data of Consult Requesting Physician: Gary See MD Primary Care Provider: Poncho Noriega MD - Consult Narrative History of present illness: Mr. Mayorga is a 77 year old male CC: Gary See MD Palliative Care-Exam - Constitutional Vitals: Temp Pulse Resp BP Pulse Ox 97.9 F 56 12 123/52 98 08/16/17 09:30 08/16/17 10:00 08/16/17 11:29 08/16/17 11:29 08/16/17 11:29 Internal Medicine - CN: Reslt - Labs CBC & Chem 7: 08/16/17 02:02 08/16/17 02:02 Labs: Short CBC 08/16/17 Range/Units 02:02 WBC 13.6 H (4.3-11.1) K/mcL Hgb 7.6 L (12.9-16.9) g/dL Hct 23.8 L (37.5-50.1) % Plt Count 128 L (140-400) K/mcL Neutrophils # 11.6 H (1.6-8.9) K/mcL BMP 08/16/17 02:02 Sodium 149 H Potassium 4.0 Chloride 108 Carbon Dioxide 30 H BUN 48 H Creatinine 1.96 H Glucose 184 H Calcium 7.6 L Cardiac Enzymes 08/15/17 Range/Units 12:00 Troponin I 1.08 H* (0-0.03) ng/mL Liver Function 08/16/17 Range/Units 02:02 Total Bilirubin 0.6 (0.2-1.2) mg/dL Direct Bilirubin 0.4 (0.0-0.5) mg/dL AST 44 H (5-34) Units/L ALT 44 (0-55) Units/L Alkaline Phosphatase 95 (38-126) Units/L Albumin 1.9 L (3.5-5.0) g/dL - ABG Interpretation ABG results: ABG ABG pH 7.44 pH Units (7.32-7.45) 08/16/17 04:02 ABG pCO2 50 mmHg (35-45) H 08/16/17 04:02 ABG pO2 86 mmHg (85-104) 08/16/17 04:02 ABG O2 Saturation 97 % (95-98) 08/16/17 04:02 PT/INR, D-dimer PT 19.0 Seconds (9.4-12.1) H 08/16/17 02:02 - Impressions Impressions Echocardiogram Limited Views 08/15/17 00:00 Impressions: Somewhat technically challenging study - patient intubated in ICU. Overall, LV systolic function appears mildly reduced, EF estimated at 45%. Recommend repeat Limited study with Definity when clinical status improves. RV size and function appear normal. Left Ventricular Wall Motion: Rest Echo Findings The mid inferior, basal inferior, mid inferior septal and basal inferior septal renae were hypokinetic. The mid anterior and basal anterior renae were not visualized. All other wall segments showed normal motion. Findings: Study Quality * Technically somewhat challenging exam - patient intubated. ECG Findings * Normal sinus rhythm. Right Ventricle * Normal right ventricular structure and function. Tricuspid Valve * Tricuspid valve not well visualized. * Trace tricuspid regurgitation. Left Ventricle * LVEF 45%. * Normal LV size and wall thickness. - Attending Attestation I examined this patient and my medical decision-making was reviewed with the Resident Physician. I agree with the documented findings, disposition and treatment plan as described except to the extent set forth below. As already noted, attempts to reach patient's brother have been unsuccessful. However, the patient's brother and a physician as well as ICU team yesterday have had conversations. The patient is full code and the brother has indicated this is what the patient would want. There is at least one child involved, other has been talking with him however has not provided a phone number for him. Continue to attempt to reach the brother regarding since children, and patient's previously known intent. For now the patient will remain full code R exam versus what we were told ICU rounds is at the patient is actually improved at least a little bit and you to watch. Palliative Quality Code Status: 08/15/17 00:52 Resuscitation Status: Active [RES] Routine Comment: Resuscitation Status: Full Code
--- NOTE | 2017-08-16 11:14 | Cardiology Progress Note ---
Date of Encounter: 08/16/17 Time of Encounter: 11:12 Assessment and Plan Discussion w patient/family: Unable to enter impressions in the usual location. Technical difficulties. Impressions: 1. Cardiopulmonary arrest, at least 20 minutes down time. 2. Junctional rhythm, which has improved. Now sinus rhythm. 3. Possible aspiration. 4. Volume overload, general anasarca. 5. Intubated/respiratory failure. 6. Probable sepsis. Potential sources include pneumonia, lower extremity ulcers. 7. Elevated troponin likely demand ischemia from cardiopulmonary arrest, respiratory failure, etc. 8. Acute on chronic kidney disease. Recommendations: 1. Patient currently being treated for the possibility of an ACS event. Continue heparin for 24 more hours, then change to DVT prophylaxis. Continue aspirin/statins as tolerated. Beta bro/JONO inhibitor being held due to hypotension, renal failure. 2. TTE demonstrates improved LV function compared to previous. 3. Your medical management. From a cardiovascular standpoint, medical therapy seems most appropriate. LV function improved compared to previous. Aggressive invasive intervention does not appear to be necessary at this time. No further cardiology recommendations other than the above. Thanks, Christofer Gauthier DO, [facility] The assessment and plan as outlined above was discussed with the patient and/or family members who expressed understanding and agreement. All questions were answered. Thank you for involving us in the care of your patient. Please call with any questions. Subjective Principal diagnosis: CPA Interval history: Patient seen and examined earlier this morning. Remains sedated, intubated. Patient underwent EEG this morning. Nurse reports nonpurposeful movements. Objective Vital Signs, Last 4 Hours Temp Pulse Resp BP Pulse Ox 08/16/17 10:00 56 14 112/44 97 08/16/17 09:57 14 112/44 97 08/16/17 09:30 97.9 F 57 12 108/44 98 08/16/17 08:00 97.9 F 57 12 108/44 97 08/16/17 07:40 12 111/43 97 08/16/17 07:27 97.9 F General: Other (Chronically ill-appearing, ventilator) HEENT: Atraumatic, Normocephaly Neck: No JVD, Normal carotid pulses Cardiac: Reg Rate and Rhythm, Normal S1 and S2, Other (Distant) Lungs: Other (Scattered rhonchi) Neuro: Other (Sedated and intubated) Abdomen: Soft, Non-Tender Extremities: Other (Edema bilaterally.) Results 08/16/17 02:02 08/16/17 02:02 Lab Results 08/15/17 08/15/17 08/16/17 12:00 19:20 02:02 WBC 13.6 H Hgb 7.6 L Hct 23.8 L Plt Count 128 L INR APTT 37.6 H Sodium Potassium Chloride Carbon Dioxide BUN Creatinine Glucose Calcium Magnesium Total Bilirubin AST ALT Alkaline Phosphatase Troponin I 1.08 H* 08/16/17 08/16/17 08/16/17 02:02 02:02 05:57 WBC Hgb Hct Plt Count INR 1.7 APTT > 360.0 H* D 92.0 H D Sodium 149 H Potassium 4.0 Chloride 108 Carbon Dioxide 30 H BUN 48 H Creatinine 1.96 H Glucose 184 H Calcium 7.6 L Magnesium 1.9 Total Bilirubin 0.6 AST 44 H ALT 44 Alkaline Phosphatase 95 Troponin I 08/16/17 09:10 WBC Hgb Hct Plt Count INR APTT Sodium Potassium Chloride Carbon Dioxide BUN Creatinine Glucose Calcium Magnesium 2.5 Total Bilirubin AST ALT Alkaline Phosphatase Troponin I - Imaging and Cardiology Echo: report reviewed Cardiac cath: report reviewed - EKG Interpretation EKG results cardiology: personally reviewed Consult Discharge Plan - Plan Referrals: Poncho Noriega MD [Primary Care Provider] -
[2017-08-16] MEDS: *HR* FentaNYL (PF) 100 MCG/2 ML VIAL IVP PRN (12:45)
[2017-08-16 12:59] LABS: Activated Partial Thrombo Time 124.5 Seconds (26.0-36.0)
[2017-08-16 13:05] LABS: Heparin anti-factor XA UFH 0.36 IU/mL (0.30-0.70)
--- NOTE | 2017-08-16 13:11 | Event Note ---
Date of Encounter: 08/16/17 Time of Encounter: 13:08 reached son Heriberto Mayorga, (only child of patient) phone is the same as pt and uncle [phone] gave update, confirmed full code status and no mpoa infromed Mr Mayorga of the possilility of trach peg decisions if he does not imporve quickly enough. There has never been any discusson of that type with pt and son.
--- NOTE | 2017-08-16 15:12 | EEG/EMG/Oth Biometrics Report ---
EEG Procedure Report Date of procedure: 08/16/17 EEG Procedure: Routine EEG Procedure Note: This is a report of a 21 channel bipolar and referential montage EEG. The posterior dominant rhythm of 8 Hz moderate voltage alpha frequencies and symmetrically in the posterior head regions. It attenuates symmetrically with eye opening. Hyperventilation is not performed in recording. Drowsiness and stage II sleep were identified by dropout of the posterior dominant rhythm and the emergence of vertex activity, K complexes, and sleep spindles. Photic stimulation is performed and does not produce a driving response. EKG rhythm strip is difficult to assess due to artifact. Impressions: This EEG recording is within normal limits. There is no evidence of epileptiform activity identified during the study. Please correlate clinically.
[2017-08-16] MEDS: Piperacillin/Tazobactam 3.375 GM in D5% in Water 50 ML IVPB SCH (16:26)
[2017-08-16] MEDS: FentaNYL (PF) 1,000 MCG in 0.9 % Sodium Chloride 80 ML IVC SCH (16:26)
--- NOTE | 2017-08-16 18:35 | Event Note ---
<Yohana Ocasio - Last Filed: 08/16/17 18:33> Date of Encounter: 08/16/17 Time of Encounter: 09:00 This is an addendum to today's pulmonology progress note. SUBJECTIVE: Patient seen and examined this morning at bedside; unable to obtain ROS as he is intubated and intermittently responsive to verbal commands on my exam. Overnight, patient reported to have an episode of seizure-like activity and managed with Ativan and Keppra. OBJECTIVE: Physical Exam: * General: intubated on vent, marginally alert * HEENT: normocephalic, atraumatic, PERRL * Neck: trachea midline * Cardiovasc: regular rhythm, HR in 50's, no murmurs, +S1/S2, b/l LE +2 pitting edema * Pulm: intubated on vent, b/l wheezes and rhonchi anteriorly * Abdomen: soft, non-distended * Extremities: able to move all extremities, soft restraints on RUE and LUE limit ROM * Neuro: positive for corneal reflex, PERRLA, gag reflex after suctioning ET tube, responds to painful stimuli (limited by restraints); unable to assess mental status, difficult to assess GCS d/t poor cooperation A/P: 1.) Cardiac arrest -s/p CPR and return of spontaneous circulation -echo shows systolic heart failure, LVEF 45% -07/23/17 C showing mild CAD, no intervention performed -concern for anoxic encephalopathy, follows some commands but is more encephalopathic today. Seizure-like activity last night, EEG unremarkable. 2.) Sepsis -s/p fluid resuscitation -etiology unclear, but possible infectious source of diabetic foot ulcers ( treated with IV abx and PICC at [facility]) -IV vancomycin and zosyn 3.) Acute kidney injury with oliguria -most likely d/t cardiac arrest and sepsis -BUN/Cr of 48/1.96 today, Cr baseline approx 1.08 -concern for ATN possibly vancomycin-induced, pharmacy adjusting dose -nephrology consulted, rec's appreciated 4.) Elevated troponin -0.14 to 1.08 in the setting of YUMIKO and demand ischemia -cardiology consulted, no intervention at this time. Further rec's appreciated 5.) Diabetes -covering with SSI -monitor glucose regularly with accu-checks and on labs, adjust and correct as needed 6.) GI prophylaxis -pantoprazole 40mg IV Q24H 7.) DVT prophylaxis -Hgb/Hct stable, heparin restarted <Robert Rodriguez - Last Filed: 08/16/17 19:01> Date of Encounter: 08/16/17 - Attending Attestation I examined this patient and my medical decision-making was reviewed with the Resident Physician. I agree with the documented findings, disposition and treatment plan as described except to the extent set forth below. Addendum containing physical exam and residents A/P. See saved daily progress note for my personal assessment
[2017-08-16] MEDS: Heparin 25,000 UNIT/500 ML D5W 25,000 UNIT/500 ML MLS IVC SCH (19:55)
[2017-08-16] MEDS: Piperacillin/Tazobactam 3.375 GM in D5% in Water (Mini-Bag+) 100 ML IVPB SCH (20:13)
[2017-08-16] MEDS: 0.9 % Sodium Chloride 1,000 ML IVC SCH (20:13)
[2017-08-16] MEDS: Sennosides/Docusate Sodium TABLET PO SCH (21:16)
[2017-08-17] MEDS: Piperacillin/Tazobactam 3.375 GM in D5% in Water 50 ML IVPB SCH ×4 (00:18→23:27)
[2017-08-17] MEDS: Lacri-Lube 3.5 GM TUBE BOTH EYES SCH ×7 (00:18→23:28)
[2017-08-17] MEDS: Insulin LISPRO 300 UNITS/3 ML VIAL SQ SCH ×5 (00:19→23:29)
[2017-08-17] MEDS: FentaNYL (PF) 1,000 MCG in 0.9 % Sodium Chloride 80 ML IVC SCH ×2 (02:20→13:41)
[2017-08-17] MEDS: Norepinephrine 4 MG in D5% in Water 250 ML IVC SCH (04:02)
[2017-08-17 04:13] LABS: ABG Base Excess 9 mEq/L (-2 to 3); ABG HCO3 34 mEq/L (21-27); ABG Oxygen Saturation 99 % (95-98); ABG PCO2 52 mmHg (35-45); ABG PH 7.43 pH Units (7.32-7.45); ABG PO2 120 mmHg (85-104); ABG TCO2 36 mEq/L (20-26); Blood Gas Modality ASSIST CONTROL; Blood Gas PEEP 5 cm H2O; Blood Gas Respiration Rate 12; Blood Gas VT 500 cc
[2017-08-17 04:16] LABS: INR 1.4; Prothrombin Time 15.6 Seconds (9.4-12.1)
[2017-08-17 04:17] LABS: Basophils % 0.4 %; Eosinophils # 0.1 K/mcL (0.0-0.6); Eosinophils % 1.1 %; Hematocrit 21.7 % (37.5-50.1); Hemoglobin 6.7 g/dL (12.9-16.9); Immature Granulocytes % 0.6 % (0-4); Lymphocytes % 11.9 %; Mean Corpuscular HGB Conc 30.9 g/dL (31.6-35.5); Mean Corpuscular Hemoglobin 28.6 pg (28.0-33.3); Mean Corpuscular Volume 92.7 fL (83.0-100.0); Mean Platelet Volume 13.5 fL (9.4-12.4); Monocytes # 0.9 K/mcL (0.0-1.3); Red Blood Count 2.34 M/mcL (4.19-5.50); Red Cell Distribution Width 18.2 % (11.5-14.5)
[2017-08-17 04:22] LABS: Neutrophils # 6.2 K/mcL (1.6-8.9); Platelet Count 80 K/mcL (140-400)
[2017-08-17 04:28] LABS: Bilirubin,Direct 0.4 mg/dL (0.0-0.5); Bilirubin,Indirect 0.3 mg/dL (0.0-1.2); Bilirubin,Total 0.7 mg/dL (0.2-1.2); Calcium 7.8 mg/dL (8.6-10.8); Globulin 2.4 g/dL (2.4-3.5); Magnesium 2.6 mg/dL (1.6-2.6); Phosphorous 3.6 mg/dL (2.3-4.7); Potassium 3.3 mEq/L (3.5-4.5); Total Protein 4.8 g/dL (6.0-8.3)
[2017-08-17 04:30] LABS: Albumin 2.4 g/dL (3.5-5.0)
[2017-08-17] MEDS: Potassium Chloride 40 MEQ/200 ML BAG IVPB PRN (05:12)
[2017-08-17] MEDS: Calcium Gluconate 1,000 MG in D5% in Water 100 ML IVPB PRN (06:19)
[2017-08-17] MEDS: Budesonide/Formoterol 160/4.5 MDI IH SCH ×2 (07:44→21:40)
--- NOTE | 2017-08-17 07:49 | Palliative Progress Note ---
<Santos Bird - Last Filed: 08/17/17 07:45> Date of Encounter: 08/17/17 Time of Encounter: 07:45 - Assessment and plan (1) Goals of care, counseling/discussion Current Visit: Yes Status: Acute Assessment and plan: Full code as per conversation with son yesterday patient is not alert today, does not follow commands, no purposeful eye movement , and pupils do not react to light off pressors will continue to monitor progression: declining neurological status prognosis poor. 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 not responding to verbal stimuli. Not on sedation. Weaned off pressors. - Constitutional Vitals: Abnormal lab results RBC 2.34 M/mcL (4.19-5.50) L 08/17/17 03:51 Hgb 6.7 g/dL (12.9-16.9) L 08/17/17 03:51 Hct 21.7 % (37.5-50.1) L 08/17/17 03:51 MCHC 30.9 g/dL (31.6-35.5) L 08/17/17 03:51 RDW 18.2 % (11.5-14.5) H 08/17/17 03:51 Plt Count 80 K/mcL (140-400) L 08/17/17 03:51 MPV 13.5 fL (9.4-12.4) H 08/17/17 03:51 PT 15.6 Seconds (9.4-12.1) H 08/17/17 03:51 APTT 58.0 Seconds (26.0-36.0) H 08/17/17 03:51 ABG pCO2 52 mmHg (35-45) H 08/17/17 04:09 ABG pO2 120 mmHg (85-104) H 08/17/17 04:09 ABG HCO3 34 mEq/L (21-27) H 08/17/17 04:09 ABG Total CO2 36 mEq/L (20-26) H 08/17/17 04:09 ABG O2 Saturation 99 % (95-98) H 08/17/17 04:09 ABG Base Excess 9 mEq/L (-2 to 3) H 08/17/17 04:09 Sodium 148 mEq/L (136-145) H 08/17/17 03:51 Potassium 3.3 mEq/L (3.5-4.5) L 08/17/17 03:51 Carbon Dioxide 30 mEq/L (19-29) H 08/17/17 03:51 BUN 54 mg/dL (8-26) H 08/17/17 03:51 Creatinine 2.38 mg/dL (0.72-1.25) H 08/17/17 03:51 Est GFR ( Amer) 32 (> 60) L 08/17/17 03:51 Est GFR (Non-Af Amer) 27 (> 60) L 08/17/17 03:51 Glucose 163 mg/dL (70-99) H 08/17/17 03:51 POC Glucose 210 (58-89) H 08/17/17 00:13 Hemoglobin A1c 7.4 % (-5.6) H 08/15/17 05:02 Calculated Osmolality 324 (280-300) H 08/17/17 03:51 Calcium 7.8 mg/dL (8.6-10.8) L 08/17/17 03:51 Ionized Calcium 1.09 mmol/L (1.15-1.35) L 08/17/17 03:51 Troponin I 1.08 ng/mL (0-0.03) H* 08/15/17 12:00 Serum Total Protein 4.8 g/dL (6.0-8.3) L 08/17/17 03:51 Albumin 2.4 g/dL (3.5-5.0) L D 08/17/17 03:51 Albumin/Globulin Ratio 1.0 (1.1-2.2) L 08/17/17 03:51 Urine Clarity Turbid (Clear) A 08/14/17 20:57 Urine Protein >=300 mg/dL (Neg-Trace) H 08/14/17 20:57 Urine Ketones Trace mg/dL (Negative) H 08/14/17 20:57 Urine Blood Large (Negative) H 08/14/17 20:57 Ur Leukocyte Esterase Large (Negative) H 08/14/17 20:57 Urine Microscopic RBC TNTC per hpf (0-3) H 08/14/17 20:57 Urine Microscopic WBC TNTC per hpf (0-3) H 08/14/17 20:57 Urine Yeast Few per hpf (None Seen) H 08/14/17 20:57 Ur Culture Indicated? YES (NO) A 08/14/17 20:57 Vancomycin Trough 39.8 mcg/mL (10-20) H* 08/16/17 21:05 - Additional findings Additional findings: General: intubated, eyes open but no response to any stimulation Eyes: not reactive to light Heart: sinus bradycardia Lungs: clear anteriorly Abdomen: Soft nontender, nondistended absent bowel sounds Skin: warm and dry Extremities: 2+ pedal edema Neuro:not alert, does not follow commands, patients eyes open but staring off Palliative Quality Palliative Quality: Screen for Code Status: Yes, Screen for Goals of Care: Yes, Screen for Pain: No, If Pain Regimen Started, Initiate Bowel Regimen: Yes, Screen for Nausea/Vomitting: No Code Status: 08/15/17 00:52 Resuscitation Status: Active [RES] Routine Comment: Resuscitation Status: Full Code - Labs CBC & Chem 7: 08/17/17 03:51 08/17/17 03:51 Labs: Laboratory Results - last 24 hr 08/16/17 08/16/17 08/16/17 09:10 12:23 12:27 WBC RBC Hgb Hct MCV MCH MCHC RDW Plt Count MPV Immature Gran % Seg Neutrophils % Lymphocytes % Monocytes % Eosinophils % Basophils % Neutrophils # Lymphocytes # Monocytes # Eosinophils # Basophils # PT INR APTT 124.5 H* Heparin Anti-Xa, Unfract 0.36 Sample Site ABG pH ABG pCO2 ABG pO2 ABG HCO3 ABG Total CO2 ABG O2 Saturation ABG Base Excess Esteban Test Respiration Rate O2 Delivery Device Blood Gas Modality Inspired O2 Tidal Volume PEEP Sodium Potassium Chloride Carbon Dioxide BUN Creatinine Est GFR ( Amer) Est GFR (Non-Af Amer) BUN/Creatinine Ratio Glucose POC Glucose 130 H Calculated Osmolality Calcium Ionized Calcium 1.06 L Phosphorus Magnesium 2.5 Total Bilirubin Direct Bilirubin Indirect Bilirubin AST ALT Alkaline Phosphatase Serum Total Protein Albumin Globulin Albumin/Globulin Ratio Vancomycin Trough Random Vancomycin 08/16/17 08/16/17 08/16/17 21:05 21:05 21:05 WBC RBC Hgb Hct MCV MCH MCHC RDW Plt Count MPV Immature Gran % Seg Neutrophils % Lymphocytes % Monocytes % Eosinophils % Basophils % Neutrophils # Lymphocytes # Monocytes # Eosinophils # Basophils # PT INR APTT 71.0 H Heparin Anti-Xa, Unfract Sample Site ABG pH ABG pCO2 ABG pO2 ABG HCO3 ABG Total CO2 ABG O2 Saturation ABG Base Excess Esteban Test Respiration Rate O2 Delivery Device Blood Gas Modality Inspired O2 Tidal Volume PEEP Sodium Potassium Chloride Carbon Dioxide BUN Creatinine Est GFR ( Amer) Est GFR (Non-Af Amer) BUN/Creatinine Ratio Glucose POC Glucose Calculated Osmolality Calcium Ionized Calcium 1.06 L Phosphorus Magnesium Total Bilirubin Direct Bilirubin Indirect Bilirubin AST ALT Alkaline Phosphatase Serum Total Protein Albumin Globulin Albumin/Globulin Ratio Vancomycin Trough 39.8 H* Random Vancomycin 08/17/17 08/17/17 08/17/17 00:13 03:51 03:51 WBC 8.2 RBC 2.34 L Hgb 6.7 L Hct 21.7 L MCV 92.7 MCH 28.6 MCHC 30.9 L RDW 18.2 H Plt Count 80 L MPV 13.5 H Immature Gran % 0.6 Seg Neutrophils % 75.0 Lymphocytes % 11.9 Monocytes % 11.0 Eosinophils % 1.1 Basophils % 0.4 Neutrophils # 6.2 Lymphocytes # 1.0 Monocytes # 0.9 Eosinophils # 0.1 Basophils # 0.0 PT 15.6 H INR 1.4 APTT 58.0 H Heparin Anti-Xa, Unfract Sample Site ABG pH ABG pCO2 ABG pO2 ABG HCO3 ABG Total CO2 ABG O2 Saturation ABG Base Excess Esteban Test Respiration Rate O2 Delivery Device Blood Gas Modality Inspired O2 Tidal Volume PEEP Sodium Potassium Chloride Carbon Dioxide BUN Creatinine Est GFR ( Amer) Est GFR (Non-Af Amer) BUN/Creatinine Ratio Glucose POC Glucose 210 H Calculated Osmolality Calcium Ionized Calcium Phosphorus Magnesium Total Bilirubin Direct Bilirubin Indirect Bilirubin AST ALT Alkaline Phosphatase Serum Total Protein Albumin Globulin Albumin/Globulin Ratio Vancomycin Trough Random Vancomycin 08/17/17 08/17/17 08/17/17 03:51 03:51 03:51 WBC RBC Hgb Hct MCV MCH MCHC RDW Plt Count MPV Immature Gran % Seg Neutrophils % Lymphocytes % Monocytes % Eosinophils % Basophils % Neutrophils # Lymphocytes # Monocytes # Eosinophils # Basophils # PT INR APTT Heparin Anti-Xa, Unfract Sample Site ABG pH ABG pCO2 ABG pO2 ABG HCO3 ABG Total CO2 ABG O2 Saturation ABG Base Excess Esteban Test Respiration Rate O2 Delivery Device Blood Gas Modality Inspired O2 Tidal Volume PEEP Sodium 148 H Potassium 3.3 L Chloride 108 Carbon Dioxide 30 H BUN 54 H Creatinine 2.38 H Est GFR ( Amer) 32 L Est GFR (Non-Af Amer) 27 L BUN/Creatinine Ratio 23 Glucose 163 H POC Glucose Calculated Osmolality 324 H Calcium 7.8 L Ionized Calcium 1.09 L Phosphorus 3.6 Magnesium 2.6 Total Bilirubin 0.7 Direct Bilirubin 0.4 Indirect Bilirubin 0.3 AST 25 ALT 34 Alkaline Phosphatase 77 Serum Total Protein 4.8 L Albumin 2.4 L D Globulin 2.4 Albumin/Globulin Ratio 1.0 L Vancomycin Trough Random Vancomycin 39.0 08/17/17 04:09 WBC RBC Hgb Hct MCV MCH MCHC RDW Plt Count MPV Immature Gran % Seg Neutrophils % Lymphocytes % Monocytes % Eosinophils % Basophils % Neutrophils # Lymphocytes # Monocytes # Eosinophils # Basophils # PT INR APTT Heparin Anti-Xa, Unfract Sample Site R Radial ABG pH 7.43 ABG pCO2 52 H ABG pO2 120 H ABG HCO3 34 H ABG Total CO2 36 H ABG O2 Saturation 99 H ABG Base Excess 9 H Esteban Test Positive Respiration Rate 12 O2 Delivery Device Adult Vent Blood Gas Modality ASSIST CONTROL Inspired O2 40.0 Tidal Volume 500 PEEP 5 Sodium Potassium Chloride Carbon Dioxide BUN Creatinine Est GFR ( Amer) Est GFR (Non-Af Amer) BUN/Creatinine Ratio Glucose POC Glucose Calculated Osmolality Calcium Ionized Calcium Phosphorus Magnesium Total Bilirubin Direct Bilirubin Indirect Bilirubin AST ALT Alkaline Phosphatase Serum Total Protein Albumin Globulin Albumin/Globulin Ratio Vancomycin Trough Random Vancomycin - ABG Interpretation ABG results: ABG ABG pH 7.43 pH Units (7.32-7.45) 08/17/17 04:09 ABG pCO2 52 mmHg (35-45) H 08/17/17 04:09 ABG pO2 120 mmHg (85-104) H 08/17/17 04:09 ABG O2 Saturation 99 % (95-98) H 08/17/17 04:09 PT/INR, D-dimer PT 15.6 Seconds (9.4-12.1) H 08/17/17 03:51 Consult Discharge Plan - Plan Referrals: Poncho Noriega MD [Primary Care Provider] - <Juwan Hennessy - Last Filed: 08/17/17 09:16> Date of Encounter: 08/17/17 - Time Spent With Patient Total time spent is greater than 50% in coordination of care (as documented) at patient's floor/unit and/or counseling patient: - Constitutional Vitals: Abnormal lab results RBC 2.34 M/mcL (4.19-5.50) L 08/17/17 03:51 Hgb 6.7 g/dL (12.9-16.9) L 08/17/17 03:51 Hct 21.7 % (37.5-50.1) L 08/17/17 03:51 MCHC 30.9 g/dL (31.6-35.5) L 08/17/17 03:51 RDW 18.2 % (11.5-14.5) H 08/17/17 03:51 Plt Count 80 K/mcL (140-400) L 08/17/17 03:51 MPV 13.5 fL (9.4-12.4) H 08/17/17 03:51 PT 15.6 Seconds (9.4-12.1) H 08/17/17 03:51 APTT 58.0 Seconds (26.0-36.0) H 08/17/17 03:51 ABG pCO2 52 mmHg (35-45) H 08/17/17 04:09 ABG pO2 120 mmHg (85-104) H 08/17/17 04:09 ABG HCO3 34 mEq/L (21-27) H 08/17/17 04:09 ABG Total CO2 36 mEq/L (20-26) H 08/17/17 04:09 ABG O2 Saturation 99 % (95-98) H 08/17/17 04:09 ABG Base Excess 9 mEq/L (-2 to 3) H 08/17/17 04:09 Sodium 148 mEq/L (136-145) H 08/17/17 03:51 Potassium 3.3 mEq/L (3.5-4.5) L 08/17/17 03:51 Carbon Dioxide 30 mEq/L (19-29) H 08/17/17 03:51 BUN 54 mg/dL (8-26) H 08/17/17 03:51 Creatinine 2.38 mg/dL (0.72-1.25) H 08/17/17 03:51 Est GFR ( Amer) 32 (> 60) L 08/17/17 03:51 Est GFR (Non-Af Amer) 27 (> 60) L 08/17/17 03:51 Glucose 163 mg/dL (70-99) H 08/17/17 03:51 POC Glucose 210 (58-89) H 08/17/17 00:13 Hemoglobin A1c 7.4 % (-5.6) H 08/15/17 05:02 Calculated Osmolality 324 (280-300) H 08/17/17 03:51 Calcium 7.8 mg/dL (8.6-10.8) L 08/17/17 03:51 Ionized Calcium 1.09 mmol/L (1.15-1.35) L 08/17/17 03:51 Troponin I 1.08 ng/mL (0-0.03) H* 08/15/17 12:00 Serum Total Protein 4.8 g/dL (6.0-8.3) L 08/17/17 03:51 Albumin 2.4 g/dL (3.5-5.0) L D 08/17/17 03:51 Albumin/Globulin Ratio 1.0 (1.1-2.2) L 08/17/17 03:51 Urine Clarity Turbid (Clear) A 08/14/17 20:57 Urine Protein >=300 mg/dL (Neg-Trace) H 08/14/17 20:57 Urine Ketones Trace mg/dL (Negative) H 08/14/17 20:57 Urine Blood Large (Negative) H 08/14/17 20:57 Ur Leukocyte Esterase Large (Negative) H 08/14/17 20:57 Urine Microscopic RBC TNTC per hpf (0-3) H 08/14/17 20:57 Urine Microscopic WBC TNTC per hpf (0-3) H 08/14/17 20:57 Urine Yeast Few per hpf (None Seen) H 08/14/17 20:57 Ur Culture Indicated? YES (NO) A 08/14/17 20:57 Vancomycin Trough 39.8 mcg/mL (10-20) H* 08/16/17 21:05 - Attending Attestation I examined this patient and my medical decision-making was reviewed with the Resident Physician. I agree with the documented findings, disposition and treatment plan as described except to the extent set forth below. Palliative Quality Code Status: 08/15/17 00:52 Resuscitation Status: Active [RES] Routine Comment: Resuscitation Status: Full Code - Labs CBC & Chem 7: 08/17/17 03:51 08/17/17 03:51 Labs: Laboratory Results - last 24 hr 08/16/17 08/16/17 08/16/17 09:10 12:23 12:27 WBC RBC Hgb Hct MCV MCH MCHC RDW Plt Count MPV Immature Gran % Seg Neutrophils % Lymphocytes % Monocytes % Eosinophils % Basophils % Neutrophils # Lymphocytes # Monocytes # Eosinophils # Basophils # PT INR APTT 124.5 H* Heparin Anti-Xa, Unfract 0.36 Sample Site ABG pH ABG pCO2 ABG pO2 ABG HCO3 ABG Total CO2 ABG O2 Saturation ABG Base Excess Esteban Test Respiration Rate O2 Delivery Device Blood Gas Modality Inspired O2 Tidal Volume PEEP Sodium Potassium Chloride Carbon Dioxide BUN Creatinine Est GFR ( Amer) Est GFR (Non-Af Amer) BUN/Creatinine Ratio Glucose POC Glucose 130 H Calculated Osmolality Calcium Ionized Calcium 1.06 L Phosphorus Magnesium 2.5 Total Bilirubin Direct Bilirubin Indirect Bilirubin AST ALT Alkaline Phosphatase Serum Total Protein Albumin Globulin Albumin/Globulin Ratio Vancomycin Trough Random Vancomycin 08/16/17 08/16/17 08/16/17 21:05 21:05 21:05 WBC RBC Hgb Hct MCV MCH MCHC RDW Plt Count MPV Immature Gran % Seg Neutrophils % Lymphocytes % Monocytes % Eosinophils % Basophils % Neutrophils # Lymphocytes # Monocytes # Eosinophils # Basophils # PT INR APTT 71.0 H Heparin Anti-Xa, Unfract Sample Site ABG pH ABG pCO2 ABG pO2 ABG HCO3 ABG Total CO2 ABG O2 Saturation ABG Base Excess Esteban Test Respiration Rate O2 Delivery Device Blood Gas Modality Inspired O2 Tidal Volume PEEP Sodium Potassium Chloride Carbon Dioxide BUN Creatinine Est GFR ( Amer) Est GFR (Non-Af Amer) BUN/Creatinine Ratio Glucose POC Glucose Calculated Osmolality Calcium Ionized Calcium 1.06 L Phosphorus Magnesium Total Bilirubin Direct Bilirubin Indirect Bilirubin AST ALT Alkaline Phosphatase Serum Total Protein Albumin Globulin Albumin/Globulin Ratio Vancomycin Trough 39.8 H* Random Vancomycin 08/17/17 08/17/17 08/17/17 00:13 03:51 03:51 WBC 8.2 RBC 2.34 L Hgb 6.7 L Hct 21.7 L MCV 92.7 MCH 28.6 MCHC 30.9 L RDW 18.2 H Plt Count 80 L MPV 13.5 H Immature Gran % 0.6 Seg Neutrophils % 75.0 Lymphocytes % 11.9 Monocytes % 11.0 Eosinophils % 1.1 Basophils % 0.4 Neutrophils # 6.2 Lymphocytes # 1.0 Monocytes # 0.9 Eosinophils # 0.1 Basophils # 0.0 PT 15.6 H INR 1.4 APTT 58.0 H Heparin Anti-Xa, Unfract Sample Site ABG pH ABG pCO2 ABG pO2 ABG HCO3 ABG Total CO2 ABG O2 Saturation ABG Base Excess Esteban Test Respiration Rate O2 Delivery Device Blood Gas Modality Inspired O2 Tidal Volume PEEP Sodium Potassium Chloride Carbon Dioxide BUN Creatinine Est GFR ( Amer) Est GFR (Non-Af Amer) BUN/Creatinine Ratio Glucose POC Glucose 210 H Calculated Osmolality Calcium Ionized Calcium Phosphorus Magnesium Total Bilirubin Direct Bilirubin Indirect Bilirubin AST ALT Alkaline Phosphatase Serum Total Protein Albumin Globulin Albumin/Globulin Ratio Vancomycin Trough Random Vancomycin 08/17/17 08/17/17 08/17/17 03:51 03:51 03:51 WBC RBC Hgb Hct MCV MCH MCHC RDW Plt Count MPV Immature Gran % Seg Neutrophils % Lymphocytes % Monocytes % Eosinophils % Basophils % Neutrophils # Lymphocytes # Monocytes # Eosinophils # Basophils # PT INR APTT Heparin Anti-Xa, Unfract Sample Site ABG pH ABG pCO2 ABG pO2 ABG HCO3 ABG Total CO2 ABG O2 Saturation ABG Base Excess Esteban Test Respiration Rate O2 Delivery Device Blood Gas Modality Inspired O2 Tidal Volume PEEP Sodium 148 H Potassium 3.3 L Chloride 108 Carbon Dioxide 30 H BUN 54 H Creatinine 2.38 H Est GFR ( Amer) 32 L Est GFR (Non-Af Amer) 27 L BUN/Creatinine Ratio 23 Glucose 163 H POC Glucose Calculated Osmolality 324 H Calcium 7.8 L Ionized Calcium 1.09 L Phosphorus 3.6 Magnesium 2.6 Total Bilirubin 0.7 Direct Bilirubin 0.4 Indirect Bilirubin 0.3 AST 25 ALT 34 Alkaline Phosphatase 77 Serum Total Protein 4.8 L Albumin 2.4 L D Globulin 2.4 Albumin/Globulin Ratio 1.0 L Vancomycin Trough Random Vancomycin 39.0 08/17/17 04:09 WBC RBC Hgb Hct MCV MCH MCHC RDW Plt Count MPV Immature Gran % Seg Neutrophils % Lymphocytes % Monocytes % Eosinophils % Basophils % Neutrophils # Lymphocytes # Monocytes # Eosinophils # Basophils # PT INR APTT Heparin Anti-Xa, Unfract Sample Site R Radial ABG pH 7.43 ABG pCO2 52 H ABG pO2 120 H ABG HCO3 34 H ABG Total CO2 36 H ABG O2 Saturation 99 H ABG Base Excess 9 H Esteban Test Positive Respiration Rate 12 O2 Delivery Device Adult Vent Blood Gas Modality ASSIST CONTROL Inspired O2 40.0 Tidal Volume 500 PEEP 5 Sodium Potassium Chloride Carbon Dioxide BUN Creatinine Est GFR ( Amer) Est GFR (Non-Af Amer) BUN/Creatinine Ratio Glucose POC Glucose Calculated Osmolality Calcium Ionized Calcium Phosphorus Magnesium Total Bilirubin Direct Bilirubin Indirect Bilirubin AST ALT Alkaline Phosphatase Serum Total Protein Albumin Globulin Albumin/Globulin Ratio Vancomycin Trough Random Vancomycin - ABG Interpretation ABG results: ABG ABG pH 7.43 pH Units (7.32-7.45) 08/17/17 04:09 ABG pCO2 52 mmHg (35-45) H 08/17/17 04:09 ABG pO2 120 mmHg (85-104) H 08/17/17 04:09 ABG O2 Saturation 99 % (95-98) H 08/17/17 04:09 PT/INR, D-dimer PT 15.6 Seconds (9.4-12.1) H 08/17/17 03:51
[2017-08-17] MEDS: Chlorhexidine Rinse 15 ML MOUTHWASH MM SCH ×2 (08:16→21:15)
[2017-08-17] MEDS: Pantoprazole 40 MG VIAL IVP SCH (08:16)
[2017-08-17] MEDS: Aspirin 81 MG TAB.CHEW PO SCH (08:16)
[2017-08-17] MEDS: Sennosides/Docusate Sodium TABLET PO SCH ×2 (08:16→21:15)
[2017-08-17] MEDS ORDERED: Aminoglycoside Consult 1 EACH MC ONE (08:27)
--- NOTE | 2017-08-17 09:45 | Pulmonology Progress Note ---
Date of Encounter: 08/17/17 Time of Encounter: 09:45 Assessment and Plan (1) Diabetic ulcer of both feet Current Visit: Yes Status: Chronic (2) Elevated troponin Current Visit: No Status: Resolved (3) Diabetes Current Visit: No Status: Chronic 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 mellitus fpc insulin use: without termite control servicer use Qualified Code( s): E11.621 - Type 2 diabetes mellitus with foot ulcer; L97.509 - Non-pressure chronic ulcer of other part of unspecified foot with unspecified severity; L97.509 - Non-pressure chronic ulcer of other part of unspecified foot with unspecified severity; L97.509 - Non-pressure chronic ulcer of other part of unspecified foot with unspecified severity; L97.509 - Non-pressure chronic ulcer of other part of unspecified foot with unspecified severity (4) DVT prophylaxis Current Visit: No Status: Acute (5) CAD (coronary artery disease) Current Visit: No Status: Chronic Qualifiers: Coronary Disease-Associated Artery/Lesion type: [place] artery [place] vs. transplanted heart: [place] heart Associated angina: without angina Qualified Code(s): I25.10 - Atherosclerotic heart disease of [place] coronary artery without angina pectoris (6) Acute respiratory failure Current Visit: Yes Status: Acute Qualifiers: Respiratory failure complication: hypoxia Qualified Code(s): J96.01 - Acute respiratory failure with hypoxia (7) Septic shock Current Visit: Yes Status: Acute (8) Goals of care, counseling/discussion Current Visit: Yes Status: Acute (9) Cardiac arrest Current Visit: Yes Status: Acute Labs, radiology, chart personally reviewed. Management was reviewed during multidisciplinary critical care rounds. Neuropsych: s/p Cardiac arrest. Head Ct w/o acute process. Possible Seziure activity loaded with Keppra. EEG negative for seizure activity no further episodes witnessed stop Keppra. Remains. encephalopathic today. Continue narcotic infusion for pain I suspect some component of anoxic brain injury although formal it is premature for formal neurologic prognostication Pulm:acute hypoxic respiratory failure suspected aspiration. Minimal vent settings SBT failed today because of apnea. Will reassess tomorrow cont volume- cycled ventilation Cards: S/p PEA Arrest with ROSC after approx 20min. Shock has resolved. ECHO shows HFrEF. Appreciate Cardiology recs- no acute intervention. Evaluated by cardiology and this may reflect acute coronary syndrome although no intervention is planned at present stop heparin infusion for ACS protocol continue cont low dose BB and ASA FEN-GI:PPi prophylaxis cont trophic enteral nutrition today. Renal: YUMIKO worsening Suspect. ATN and possible vancomycin cont Colloid administration. monitor LYtes no acute indication for dialysis. K+ wnl ID: Suspected Sepsis (concerning for Aspiration) complicated by underlying LE ulcers on antibiotics. Cot Vanc (pharmacy dosed per renal function and/Zosyn). we will consider ID consult based upon course. Cultures Pending Berna in Urine cont to monitor Heme/Onc: Acute on chronic anemia slightly drop in H&H overnight but I think this is more related to underproduction no further evidence of bleeding and patient was on a heparin infusion making this much less likely. Transfusing 2 units PRBCs today for goal hemoglobin around 9.0 for possibility of active cardiac ischemia Endo: Glucose Monitored and appropriate. Cont Bolus dosing insulin. Integ/MSK: Skin Care per routine ICU Nursing Protocol to prevent ulcers. Lines: All lines examined without evidence of infection Dispo: Remains Critically ill. CODE:Full Code. Overall Poor prognosis Palliative care has been consulted (10) Encephalopathy Current Visit: Yes Status: Acute (11) Seizure Current Visit: Yes Status: Acute Subjective Principal diagnosis: Cardiac Arrest Interval history: Mr. Gutierrez has been noted to have significant episodes of pain understandable secondary to rib fractures with periods of agitation that is being controlled with narcotic overall he has been less responsive over the last 24 hours otherwise. He remains hemodynamically stable urine output has been middling but did improve temporarily with colloid bolus Objective PUL Vital signs: Last Vital Signs Temp 96.8 F L 08/17/17 08:00 Pulse 57 08/17/17 09:00 Resp 12 08/17/17 09:00 BP 101/60 08/17/17 09:00 Pulse Ox 99 08/17/17 09:00 Patient seen and examined at bedside he is lying in bed does not appear to be in any distress he is able to open his eyes to my voice otherwise only occasional spontaneous movements of his pupils are equal round and reactive to light he is not able to this squeeze my finger to voice command he does have withdrawal to pain. Air entry bilaterally without evidence of flail chest heart sounds are appreciated and he has a regular rate and rhythm without any audible murmur his abdomen is soft bowel sounds are present but hypoactive he has diffuse anasarca lower extremity ulcers are noted and bandages have been applied. Ventilator Settings Ventilator Settings: Ventilator Settings, Last 8 Hours Ventilator Mode VC+ Ventilator Mode VC+ Ventilator Mode VC+ Ventilator Mode VC+ Ventilator Mode VC+ Ventilator Mode VC+ Ventilator Mode VC+ Ventilator Mode VC+ Ventilator Tidal Volume 500 Setting Ventilator Tidal Volume 500 Setting Ventilator Tidal Volume 500 Setting Ventilator Tidal Volume 500 Setting Ventilator Tidal Volume 500 Setting Ventilator Tidal Volume 500 Setting Ventilator Tidal Volume 500 Setting Ventilator Tidal Volume 500 Setting Ventilator Respiratory Rate 12 Setting Ventilator Respiratory Rate 12 Setting Ventilator Respiratory Rate 12 Setting Ventilator Respiratory Rate 12 Setting Ventilator Respiratory Rate 12 Setting Ventilator Respiratory Rate 12 Setting Ventilator Respiratory Rate 12 Setting Ventilator Respiratory Rate 12 Setting Actual Respiratory Rate 12 Actual Respiratory Rate 12 Actual Respiratory Rate 12 Actual Respiratory Rate 12 Actual Respiratory Rate 12 Actual Respiratory Rate 12 Actual Respiratory Rate 12 Positive End Expiratory 5 Pressure Positive End Expiratory 5 Pressure Positive End Expiratory 5 Pressure Positive End Expiratory 5 Pressure Positive End Expiratory 5 Pressure Positive End Expiratory 5 Pressure Positive End Expiratory 5 Pressure Positive End Expiratory 8 Pressure Peak Inspiratory Airway 24 Pressure Peak Inspiratory Airway 24 Pressure Peak Inspiratory Airway 24 Pressure Peak Inspiratory Airway 24 Pressure Peak Inspiratory Airway 25 Pressure Peak Inspiratory Airway 34 Pressure Peak Inspiratory Airway 29 Pressure Results - Laboratory Findings CBC and BMP: 08/17/17 03:51 08/17/17 11:10 ABG ABG pH 7.43 pH Units (7.32-7.45) 08/17/17 04:09 ABG pCO2 52 mmHg (35-45) H 08/17/17 04:09 ABG pO2 120 mmHg (85-104) H 08/17/17 04:09 ABG O2 Saturation 99 % (95-98) H 08/17/17 04:09 PT/INR, D-dimer PT 15.6 Seconds (9.4-12.1) H 08/17/17 03:51 Abnormal lab findings: Abnormal lab results RBC 2.34 M/mcL (4.19-5.50) L 08/17/17 03:51 Hgb 6.7 g/dL (12.9-16.9) L 08/17/17 03:51 Hct 21.7 % (37.5-50.1) L 08/17/17 03:51 MCHC 30.9 g/dL (31.6-35.5) L 08/17/17 03:51 RDW 18.2 % (11.5-14.5) H 08/17/17 03:51 Plt Count 80 K/mcL (140-400) L 08/17/17 03:51 MPV 13.5 fL (9.4-12.4) H 08/17/17 03:51 PT 15.6 Seconds (9.4-12.1) H 08/17/17 03:51 APTT 58.0 Seconds (26.0-36.0) H 08/17/17 03:51 ABG pCO2 52 mmHg (35-45) H 08/17/17 04:09 ABG pO2 120 mmHg (85-104) H 08/17/17 04:09 ABG HCO3 34 mEq/L (21-27) H 08/17/17 04:09 ABG Total CO2 36 mEq/L (20-26) H 08/17/17 04:09 ABG O2 Saturation 99 % (95-98) H 08/17/17 04:09 ABG Base Excess 9 mEq/L (-2 to 3) H 08/17/17 04:09 Sodium 148 mEq/L (136-145) H 08/17/17 03:51 Potassium 3.3 mEq/L (3.5-4.5) L 08/17/17 03:51 Carbon Dioxide 30 mEq/L (19-29) H 08/17/17 03:51 BUN 54 mg/dL (8-26) H 08/17/17 03:51 Creatinine 2.38 mg/dL (0.72-1.25) H 08/17/17 03:51 Est GFR ( Amer) 32 (> 60) L 08/17/17 03:51 Est GFR (Non-Af Amer) 27 (> 60) L 08/17/17 03:51 Glucose 163 mg/dL (70-99) H 08/17/17 03:51 POC Glucose 210 (58-89) H 08/17/17 00:13 Hemoglobin A1c 7.4 % (-5.6) H 08/15/17 05:02 Calculated Osmolality 324 (280-300) H 08/17/17 03:51 Calcium 7.8 mg/dL (8.6-10.8) L 08/17/17 03:51 Ionized Calcium 1.09 mmol/L (1.15-1.35) L 08/17/17 03:51 Troponin I 1.08 ng/mL (0-0.03) H* 08/15/17 12:00 Serum Total Protein 4.8 g/dL (6.0-8.3) L 08/17/17 03:51 Albumin 2.4 g/dL (3.5-5.0) L D 08/17/17 03:51 Albumin/Globulin Ratio 1.0 (1.1-2.2) L 08/17/17 03:51 Urine Clarity Turbid (Clear) A 08/14/17 20:57 Urine Protein >=300 mg/dL (Neg-Trace) H 08/14/17 20:57 Urine Ketones Trace mg/dL (Negative) H 08/14/17 20:57 Urine Blood Large (Negative) H 08/14/17 20:57 Ur Leukocyte Esterase Large (Negative) H 08/14/17 20:57 Urine Microscopic RBC TNTC per hpf (0-3) H 08/14/17 20:57 Urine Microscopic WBC TNTC per hpf (0-3) H 08/14/17 20:57 Urine Yeast Few per hpf (None Seen) H 08/14/17 20:57 Ur Culture Indicated? YES (NO) A 08/14/17 20:57 Vancomycin Trough 39.8 mcg/mL (10-20) H* 08/16/17 21:05 - Microbiology Findings Microbiology Findings: Microbiology, Last 48 Hours 08/15/17 01:15 Blood Culture - Preliminary Peripheral Venipuncture No growth. 08/14/17 22:34 Blood Culture - Preliminary Peripheral Venipuncture No growth. - Clinical Findings Intake & Output: Intake & Output 08/16/17 08/17/17 08/17/17 23:59 07:59 15:59 Intake Total 680 / 680 641 / 641 Output Total 200 / 200 100 / 100 Balance 480 / 480 541 / 541 Weight 84.5 kg Consult Discharge Plan - Plan Referrals: Poncho Noriega MD [Primary Care Provider] -
[2017-08-17] MEDS ORDERED: Albumin Human 5% 25 GM/500 ML VIAL IVPB ONE (10:07)
--- NOTE | 2017-08-17 11:03 | Electrocardiograph Report ---
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
--- NOTE | 2017-08-17 11:15 | Electrocardiograph Report ---
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
[2017-08-17 11:24] LABS: Ionized Calcium 1.08 mmol/L (1.15-1.35)
--- NOTE | 2017-08-17 11:37 | Nephrology Consult Note ---
Date of Encounter: 08/17/17 Time of Encounter: 10:25 Assessment and Plan (1) Acute kidney injury Current Visit: Yes Status: Acute YUMIKO in setting of cardiac arrest, hypovolemia, Vanc toxicity. Will monitor, no immediate need for dialysis. Avoid nephrotoxins. Noted PRBC's ordered for Hgb 6.7. History of Present Illness - Reason for Consult Acute Kidney Injury - History of Present Illness Mr. Mayorga is a 77 year old male who was a witnessed cardiac arrest at his nursing facility on Aug.14. He was discharged from [facility] on Aug 07 following admission for foot wound, sepsis and YUMIKO, creat peaked 1.55 with normal renal fct prior to Jul 18. Other PMH-COPD, coronary artery disease, diabetes, hyperlipidemia, hypertension. Currently intubated, not on pressor at time of consult. SBP 96-101. Oliguric and Hgb today of 6.7. Vancomycin level noted at 39. Creat 2.38. Eyes open, no tracking. Dependent 2-3+pitting edema buttocks down. Past Med Surg Social Fam HX - Past Medical History Medical history: COPD, coronary artery disease, diabetes, hyperlipidemia, hypertension Psychiatric history: no psych history - Past Surgical History Surgical History: no surgical history - Social History Smoking Status: Unknown if ever smoked Smokeless Tobacco Status: No Alcohol use: none Drug use: none - Family History Mother Family Member Ethnicity: Non- Living Status: Hx Family Cardiac Disorders: Yes (CAD) Hx Family Endocrine Disorder: Yes (DM) Father Family Member Ethnicity: Non- Living Status: Hx Family Cardiac Disorders: Yes (HD) Hx Family Respiratory Disorders: Yes (Emphysema) Brother Family Member Ethnicity: Non- Living Status: Still Living Hx Family Cardiac Disorders: Yes (HD, HTN) Hx Family Endocrine Disorder: Yes (DM) Sister Family Member Ethnicity: Non- Living Status: Hx Family Endocrine Disorder: Yes (DM) Medications and Allergies Aspirin 325 mg PO DAILY tablet 08/07/17 [Rx] Atorvastatin [Lipitor] 40 mg PO HS tablet 08/07/17 [Rx] Carvedilol [Coreg] 25 mg PO BIDWM tablet 08/07/17 [Rx] Clopidogrel [Plavix] 75 mg PO DAILY tablet 08/07/17 [Rx] Furosemide [Lasix] 40 mg PO DAILY tablet 08/07/17 [Rx] Lisinopril [Zestril] 2.5 mg PO DAILY tablet 08/07/17 [Rx] Magnesium Oxide [Mag-Ox] 400 mg PO DAILY tablet 08/07/17 [Rx] Nitroglycerin 0.4 mg SL Q5MIN PRN tab.subl 08/07/17 [Rx] Omeprazole [PriLOSEC] 20 mg PO DAILY@0630 capsule.dr 08/07/17 [Rx] OxyCODONE Immed Rel [Roxicodone 5 MG] 10 mg PO Q8HR PRN #10 tablet 08/07/17 [Rx] Potassium Chloride 20 meq PO DAILY tab.er.prt 08/07/17 [Rx] Zinc Sulfate 220 mg PO DAILY capsule 08/07/17 [Rx] amLODIPine [Norvasc] 10 mg PO DAILY tablet 08/07/17 [Rx] Clotrimazole/Betamethasone Dip [Lotrisone Cream] 1 appl TP DAILY 08/15/17 [ History] Collagenase Oint [Santyl] 1 appl TP BID 08/15/17 [History] Insulin LISPRO [HumaLOG] 0 units SQ TID PRN 08/15/17 [History] Levofloxacin 750 MG/150 ML [Levaquin Premix 750mg/150 mL] 750 mg IVPB DAILY 11/30 [History] Melatonin 5 mg PO HS 08/15/17 [History] Vancomycin/0.9 % Sod Chloride [Vanco 1.25 gm/250 ml-0.9% NaCl] 1.25 gm IV DAILY 08/15/17 [History] 3 Allergy/AdvReac Type Severity Reaction Status Date / Time No Known Allergies Allergy Verified 07/03/15 17:42 Review of Systems All Systems: reviewed and no additional remarkable complaints except as stated Exam - Vital Signs Vital signs: Initial Vital Signs Temp Pulse Resp BP Pulse Ox 0 F L 0 0 0/0 0 08/14/17 20:11 08/14/17 20:11 08/14/17 20:11 08/14/17 20:11 08/14/17 20:11 Vital Signs - Last 8 Hours Temp Pulse Resp BP Pulse Ox 08/17/17 10:20 12 99 08/17/17 10:00 57 12 106/57 99 08/17/17 09:00 57 12 101/60 99 08/17/17 08:00 96.8 F L 56 12 101/60 99 08/17/17 07:46 12 99 08/17/17 07:30 97.3 F L 08/17/17 07:00 53 12 101/55 99 08/17/17 06:00 53 12 108/63 99 08/17/17 05:13 12 109/59 99 08/17/17 05:00 51 12 109/59 99 08/17/17 04:00 96.8 F L 49 12 102/56 100 08/17/17 03:44 12 99/66 99 Intake and Output 08/16/17 08/17/17 08/17/17 23:59 07:59 15:59 Intake Total 680 / 680 641 / 641 Output Total 200 / 200 100 / 100 Balance 480 / 480 541 / 541 Intake: IV Fluids 680 / 680 385 / 385 ALBURX 5% 12.5 gm In 250 ml @ 500 / 500 60 mls/hr IVC .Q4H10M DAV Rx#: [id number] FentaNYL (PF) 1,000 MCG In 0.9 20 / 20 80 / 80 % Sodium Chloride 80 ML @ 50 MCG/HR 5 mls/hr IVC CONT DAV Rx #:[id number] Heparin 25,000 UNIT/500 ML D5W 0 / 0 150 / 150 25,000 unit In 500 ml @ 12 UNIT /KG/HR 19.608 mls/hr IVC .Q24H DAV Rx#:[id number] Calcium Gluconate 1,000 MG In 110 / 110 Dextrose 5% 100 ML @ 50 mls/hr IVPB Q6HR PRN Rx#:[id number] Zosyn 3.375 GM In Dextrose 5% ( 50 / 50 50 / 50 ADD-Crane) 50 ML @ 12.5 mls/ hr IVPB Q8HR DAV Rx#:[id number] Keppra 500 MG In 0.9 % Sodium 105 / 105 Chloride 100 ML @ 400 mls/hr IVPB BID DAV Rx#:[id number] Tube Feeding 256 / 256 Output: Catheter 200 / 200 100 / 100 Other: Weight 84.5 kg Blood Glucose* 163 Patient Weight 08/17/17 23:59 Weight 84.5 kg - General Appearance General appearance: chronically ill EENT: mucous membranes moist Neck: no JVD Respiratory: clear Cardiology: edema, regular rhythm Gastrointestinal: hypoactive bowel sounds Integumentary: warm and dry Results - Lab Results 08/17/17 03:51 08/17/17 03:51 Most recent lab results ABG pH 7.43 pH Units (7.32-7.45) 08/17/17 04:09 ABG pCO2 52 mmHg (35-45) H 08/17/17 04:09 ABG pO2 120 mmHg (85-104) H 08/17/17 04:09 ABG HCO3 34 mEq/L (21-27) H 08/17/17 04:09 ABG O2 Saturation 99 % (95-98) H 08/17/17 04:09 Calcium 7.8 mg/dL (8.6-10.8) L 08/17/17 03:51 Phosphorus 3.6 mg/dL (2.3-4.7) 08/17/17 03:51 Magnesium 2.6 mg/dL (1.6-2.6) 08/17/17 03:51 Consult Discharge Plan - Plan Referrals: Poncho Noriega MD [Primary Care Provider] -
[2017-08-17] MEDS: *HR* Heparin 5,000 UNIT/ML VIAL SQ SCH ×2 (13:43→21:15)
[2017-08-17] MEDS ORDERED: 0.9 % Sodium Chloride 250 ML ONE (15:21)
[2017-08-17 21:36] LABS: Hematocrit 24.3 % (37.5-50.1); Hemoglobin 7.6 g/dL (12.9-16.9)
[2017-08-18] MEDS: FentaNYL (PF) 1,000 MCG in 0.9 % Sodium Chloride 80 ML IVC SCH ×2 (02:16→16:00)
[2017-08-18] MEDS: Lacri-Lube 3.5 GM TUBE BOTH EYES SCH ×6 (02:57→23:24)
[2017-08-18 03:50] LABS: Basophils % 0.3 %; Red Cell Distribution Width 18.3 % (11.5-14.5)
[2017-08-18 03:52] LABS: Eosinophils # 0.1 K/mcL (0.0-0.6); Eosinophils % 0.8 %; Hematocrit 25.1 % (37.5-50.1); Immature Granulocytes % 0.6 % (0-4); Immature Platelets 12.3 % (1.1-6.1); Lymphocytes # 1.1 K/mcL (0.6-4.6); Mean Corpuscular HGB Conc 31.9 g/dL (31.6-35.5); Mean Corpuscular Hemoglobin 29.1 pg (28.0-33.3); Mean Corpuscular Volume 91.3 fL (83.0-100.0); Mean Platelet Volume 13.1 fL (9.4-12.4); Monocytes # 1.5 K/mcL (0.0-1.3); Monocytes % 11.1 %; Neutrophils # 10.7 K/mcL (1.6-8.9); Red Blood Count 2.75 M/mcL (4.19-5.50); Segmented Neutrophils % 79.2 %
[2017-08-18 03:54] LABS: Platelet Count 92 K/mcL (140-400)
[2017-08-18 04:05] LABS: Albumin 2.5 g/dL (3.5-5.0); Bilirubin,Direct 0.5 mg/dL (0.0-0.5); Bilirubin,Indirect 0.4 mg/dL (0.0-1.2); Bilirubin,Total 0.9 mg/dL (0.2-1.2); Globulin 2.6 g/dL (2.4-3.5); Magnesium 2.5 mg/dL (1.6-2.6); Total Protein 5.1 g/dL (6.0-8.3)
[2017-08-18 04:07] LABS: INR 1.5; Prothrombin Time 15.8 Seconds (9.4-12.1)
[2017-08-18] MEDS: Insulin LISPRO 300 UNITS/3 ML VIAL SQ SCH ×4 (04:53→23:25)
[2017-08-18 05:47] LABS: ABG Base Excess 6 mEq/L (-2 to 3); ABG HCO3 32 mEq/L (21-27); ABG Oxygen Saturation 98 % (95-98); ABG PCO2 53 mmHg (35-45); ABG PH 7.39 pH Units (7.32-7.45); ABG PO2 107 mmHg (85-104); ABG TCO2 34 mEq/L (20-26); Blood Gas Modality ASSIST CONTROL; Blood Gas PEEP 5 cm H2O; Blood Gas Respiration Rate 12; Blood Gas VT 500 cc
[2017-08-18] MEDS: *HR* Heparin 5,000 UNIT/ML VIAL SQ SCH ×3 (05:53→23:24)
--- NOTE | 2017-08-18 07:13 | Palliative Progress Note ---
<Santos Bird - Last Filed: 08/18/17 07:10> Date of Encounter: 08/18/17 Time of Encounter: 07:11 - Assessment and plan (1) Goals of care, counseling/discussion Current Visit: Yes Status: Acute Assessment and plan: Full code as per conversation with son patient alert today and following commands off pressors and sedation this morning worsening kidney function: poor urine output during CPAP trial yesterday patient went apneic if patient continues to fail cpap trial family will need to discuss if patient would want tracheostomy and PEG tube or would his wishes be to be comfortable. if renal function continues to worsen will need dialysis neurological status improved. (2) Cardiac arrest Current Visit: Yes Status: Acute Assessment and plan: Witnessed cardiac arrest patient now intubated not sedated weaned off noepinephrine plan as per primary (3) Acute kidney injury Current Visit: Yes Status: Acute Assessment and plan: 2nd to cardiopulmonary arrest, anemia, vacomycin worsening anuric nephrology consulted (4) Diabetic ulcer of both feet Current Visit: Yes Status: Chronic Assessment and plan: being treated for MRSA, enterococuss, proteus mirabilis, and klebsiella infection on zosyn (5) Broken ribs Current Visit: Yes Status: Acute Assessment and plan: 2nd to cpr multiple broken ribs patient is on fentanyl drip for pain relief but this has been turned off for the morning as patient will undergo cpap trial. Qualifiers: Encounter type: initial encounter Rib fracture type: multiple ribs Fracture type: closed Laterality: bilateral Qualified Code(s): S22.43XA - Multiple fractures of ribs, bilateral, initial encounter for closed fracture - Time Spent With Patient Total time spent is greater than 50% in coordination of care (as documented) at patient's floor/unit and/or counseling patient: - Subjective Interval history: Intubated. opens his eyes when talking to him. follows commands. not on sedation. failed cpap trial yesterday: became apneic. CPAP trial again today. - Constitutional Vitals: Abnormal lab results WBC 13.5 K/mcL (4.3-11.1) H D 08/18/17 03:40 RBC 2.75 M/mcL (4.19-5.50) L 08/18/17 03:40 Hgb 8.0 g/dL (12.9-16.9) L 08/18/17 03:40 Hct 25.1 % (37.5-50.1) L 08/18/17 03:40 RDW 18.3 % (11.5-14.5) H 08/18/17 03:40 Plt Count 92 K/mcL (140-400) L 08/18/17 03:40 MPV 13.1 fL (9.4-12.4) H 08/18/17 03:40 Neutrophils # 10.7 K/mcL (1.6-8.9) H 08/18/17 03:40 Monocytes # 1.5 K/mcL (0.0-1.3) H 08/18/17 03:40 Immature Plt Fraction 12.3 % (1.1-6.1) H 08/18/17 03:40 PT 15.8 Seconds (9.4-12.1) H 08/18/17 03:40 APTT 58.0 Seconds (26.0-36.0) H 08/17/17 03:51 ABG pCO2 53 mmHg (35-45) H 08/18/17 05:43 ABG pO2 107 mmHg (85-104) H 08/18/17 05:43 ABG HCO3 32 mEq/L (21-27) H 08/18/17 05:43 ABG Total CO2 34 mEq/L (20-26) H 08/18/17 05:43 ABG Base Excess 6 mEq/L (-2 to 3) H 08/18/17 05:43 Sodium 147 mEq/L (136-145) H 08/18/17 03:40 Carbon Dioxide 30 mEq/L (19-29) H 08/18/17 03:40 BUN 60 mg/dL (8-26) H 08/18/17 03:40 Creatinine 2.95 mg/dL (0.72-1.25) H 08/18/17 03:40 Est GFR ( Amer) 25 (> 60) L 08/18/17 03:40 Est GFR (Non-Af Amer) 21 (> 60) L 08/18/17 03:40 Glucose 123 mg/dL (70-99) H 08/18/17 03:40 POC Glucose 147 (58-89) H 08/17/17 23:08 Hemoglobin A1c 7.4 % (-5.6) H 08/15/17 05:02 Calculated Osmolality 322 (280-300) H 08/18/17 03:40 Calcium 8.0 mg/dL (8.6-10.8) L 08/18/17 03:40 Ionized Calcium 1.04 mmol/L (1.15-1.35) L 08/18/17 04:00 Troponin I 1.08 ng/mL (0-0.03) H* 08/15/17 12:00 Serum Total Protein 5.1 g/dL (6.0-8.3) L 08/18/17 03:40 Albumin 2.5 g/dL (3.5-5.0) L 08/18/17 03:40 Albumin/Globulin Ratio 1.0 (1.1-2.2) L 08/18/17 03:40 Urine Clarity Turbid (Clear) A 08/14/17 20:57 Urine Protein >=300 mg/dL (Neg-Trace) H 08/14/17 20:57 Urine Ketones Trace mg/dL (Negative) H 08/14/17 20:57 Urine Blood Large (Negative) H 08/14/17 20:57 Ur Leukocyte Esterase Large (Negative) H 08/14/17 20:57 Urine Microscopic RBC TNTC per hpf (0-3) H 08/14/17 20:57 Urine Microscopic WBC TNTC per hpf (0-3) H 08/14/17 20:57 Urine Yeast Few per hpf (None Seen) H 08/14/17 20:57 Ur Culture Indicated? YES (NO) A 08/14/17 20:57 Vancomycin Trough 39.8 mcg/mL (10-20) H* 08/16/17 21:05 - Additional findings Additional findings: General: intubated, eyes open responds to stimulation Eyes: reactive to light Heart: sinus bradycardia Lungs: clear anteriorly Abdomen: Soft nontender, nondistended absent bowel sounds Skin: cool, dry Extremities: 2+ pedal edema Neuro: alert, opens eyes with verbal stimulation, squeezing hand and moving toes when asked. Palliative Quality Palliative Quality: Screen for Code Status: Yes, Screen for Goals of Care: Yes, Screen for Pain: No, If Pain Regimen Started, Initiate Bowel Regimen: Yes, Screen for Nausea/Vomitting: No Code Status: 08/15/17 00:52 Resuscitation Status: Active [RES] Routine Comment: Resuscitation Status: Full Code - Labs CBC & Chem 7: 08/18/17 03:40 08/18/17 03:40 Labs: Laboratory Results - last 24 hr 08/17/17 08/17/17 08/17/17 11:10 11:20 12:02 WBC RBC Hgb Hct MCV MCH MCHC RDW Plt Count MPV Immature Gran % Seg Neutrophils % Lymphocytes % Monocytes % Eosinophils % Basophils % Neutrophils # Lymphocytes # Monocytes # Eosinophils # Basophils # Immature Plt Fraction PT INR Sample Site ABG pH ABG pCO2 ABG pO2 ABG HCO3 ABG Total CO2 ABG O2 Saturation ABG Base Excess Esteban Test Respiration Rate O2 Delivery Device Blood Gas Modality Inspired O2 Tidal Volume PEEP Sodium Potassium 4.0 Chloride Carbon Dioxide BUN Creatinine Est GFR ( Amer) Est GFR (Non-Af Amer) BUN/Creatinine Ratio Glucose POC Glucose 185 H Calculated Osmolality Calcium Ionized Calcium 1.08 L Magnesium Total Bilirubin Direct Bilirubin Indirect Bilirubin AST ALT Alkaline Phosphatase Serum Total Protein Albumin Globulin Albumin/Globulin Ratio Random Vancomycin Blood Type O POSITIVE Antibody Screen NEGATIVE Crossmatch See Detail 08/17/17 08/17/17 08/17/17 17:38 21:30 21:30 WBC RBC Hgb 7.6 L Hct 24.3 L MCV MCH MCHC RDW Plt Count MPV Immature Gran % Seg Neutrophils % Lymphocytes % Monocytes % Eosinophils % Basophils % Neutrophils # Lymphocytes # Monocytes # Eosinophils # Basophils # Immature Plt Fraction PT INR Sample Site ABG pH ABG pCO2 ABG pO2 ABG HCO3 ABG Total CO2 ABG O2 Saturation ABG Base Excess Esteban Test Respiration Rate O2 Delivery Device Blood Gas Modality Inspired O2 Tidal Volume PEEP Sodium Potassium Chloride Carbon Dioxide BUN Creatinine Est GFR ( Amer) Est GFR (Non-Af Amer) BUN/Creatinine Ratio Glucose POC Glucose 188 H Calculated Osmolality Calcium Ionized Calcium 1.02 L Magnesium Total Bilirubin Direct Bilirubin Indirect Bilirubin AST ALT Alkaline Phosphatase Serum Total Protein Albumin Globulin Albumin/Globulin Ratio Random Vancomycin Blood Type Antibody Screen Crossmatch 08/17/17 08/18/17 08/18/17 23:08 03:40 03:40 WBC 13.5 H D RBC 2.75 L Hgb 8.0 L Hct 25.1 L MCV 91.3 MCH 29.1 MCHC 31.9 RDW 18.3 H Plt Count 92 L MPV 13.1 H Immature Gran % 0.6 Seg Neutrophils % 79.2 Lymphocytes % 8.0 Monocytes % 11.1 Eosinophils % 0.8 Basophils % 0.3 Neutrophils # 10.7 H Lymphocytes # 1.1 Monocytes # 1.5 H Eosinophils # 0.1 Basophils # 0.0 Immature Plt Fraction 12.3 H PT 15.8 H INR 1.5 Sample Site ABG pH ABG pCO2 ABG pO2 ABG HCO3 ABG Total CO2 ABG O2 Saturation ABG Base Excess Esteban Test Respiration Rate O2 Delivery Device Blood Gas Modality Inspired O2 Tidal Volume PEEP Sodium Potassium Chloride Carbon Dioxide BUN Creatinine Est GFR ( Amer) Est GFR (Non-Af Amer) BUN/Creatinine Ratio Glucose POC Glucose 147 H Calculated Osmolality Calcium Ionized Calcium Magnesium Total Bilirubin Direct Bilirubin Indirect Bilirubin AST ALT Alkaline Phosphatase Serum Total Protein Albumin Globulin Albumin/Globulin Ratio Random Vancomycin Blood Type Antibody Screen Crossmatch 08/18/17 08/18/17 08/18/17 03:40 03:40 04:00 WBC RBC Hgb Hct MCV MCH MCHC RDW Plt Count MPV Immature Gran % Seg Neutrophils % Lymphocytes % Monocytes % Eosinophils % Basophils % Neutrophils # Lymphocytes # Monocytes # Eosinophils # Basophils # Immature Plt Fraction PT INR Sample Site ABG pH ABG pCO2 ABG pO2 ABG HCO3 ABG Total CO2 ABG O2 Saturation ABG Base Excess Esteban Test Respiration Rate O2 Delivery Device Blood Gas Modality Inspired O2 Tidal Volume PEEP Sodium 147 H Potassium 4.0 Chloride 109 Carbon Dioxide 30 H BUN 60 H Creatinine 2.95 H Est GFR ( Amer) 25 L Est GFR (Non-Af Amer) 21 L BUN/Creatinine Ratio 20 Glucose 123 H POC Glucose Calculated Osmolality 322 H Calcium 8.0 L Ionized Calcium 1.04 L Magnesium 2.5 Total Bilirubin 0.9 Direct Bilirubin 0.5 Indirect Bilirubin 0.4 AST 21 ALT 27 Alkaline Phosphatase 80 Serum Total Protein 5.1 L Albumin 2.5 L Globulin 2.6 Albumin/Globulin Ratio 1.0 L Random Vancomycin 35.4 Blood Type Antibody Screen Crossmatch 08/18/17 05:43 WBC RBC Hgb Hct MCV MCH MCHC RDW Plt Count MPV Immature Gran % Seg Neutrophils % Lymphocytes % Monocytes % Eosinophils % Basophils % Neutrophils # Lymphocytes # Monocytes # Eosinophils # Basophils # Immature Plt Fraction PT INR Sample Site R Radial ABG pH 7.39 ABG pCO2 53 H ABG pO2 107 H ABG HCO3 32 H ABG Total CO2 34 H ABG O2 Saturation 98 ABG Base Excess 6 H Esteban Test N/A Respiration Rate 12 O2 Delivery Device Adult Vent Blood Gas Modality ASSIST CONTROL Inspired O2 40.0 Tidal Volume 500 PEEP 5 Sodium Potassium Chloride Carbon Dioxide BUN Creatinine Est GFR ( Amer) Est GFR (Non-Af Amer) BUN/Creatinine Ratio Glucose POC Glucose Calculated Osmolality Calcium Ionized Calcium Magnesium Total Bilirubin Direct Bilirubin Indirect Bilirubin AST ALT Alkaline Phosphatase Serum Total Protein Albumin Globulin Albumin/Globulin Ratio Random Vancomycin Blood Type Antibody Screen Crossmatch - ABG Interpretation ABG results: ABG ABG pH 7.39 pH Units (7.32-7.45) 08/18/17 05:43 ABG pCO2 53 mmHg (35-45) H 08/18/17 05:43 ABG pO2 107 mmHg (85-104) H 08/18/17 05:43 ABG O2 Saturation 98 % (95-98) 08/18/17 05:43 PT/INR, D-dimer PT 15.8 Seconds (9.4-12.1) H 08/18/17 03:40 Consult Discharge Plan - Plan Referrals: Poncho Noriega MD [Primary Care Provider] - <Juwan Hennessy - Last Filed: 08/18/17 08:38> Date of Encounter: 08/18/17 - Time Spent With Patient Total time spent is greater than 50% in coordination of care (as documented) at patient's floor/unit and/or counseling patient: - Constitutional Vitals: Abnormal lab results WBC 13.5 K/mcL (4.3-11.1) H D 08/18/17 03:40 RBC 2.75 M/mcL (4.19-5.50) L 08/18/17 03:40 Hgb 8.0 g/dL (12.9-16.9) L 08/18/17 03:40 Hct 25.1 % (37.5-50.1) L 08/18/17 03:40 RDW 18.3 % (11.5-14.5) H 08/18/17 03:40 Plt Count 92 K/mcL (140-400) L 08/18/17 03:40 MPV 13.1 fL (9.4-12.4) H 08/18/17 03:40 Neutrophils # 10.7 K/mcL (1.6-8.9) H 08/18/17 03:40 Monocytes # 1.5 K/mcL (0.0-1.3) H 08/18/17 03:40 Immature Plt Fraction 12.3 % (1.1-6.1) H 08/18/17 03:40 PT 15.8 Seconds (9.4-12.1) H 08/18/17 03:40 APTT 58.0 Seconds (26.0-36.0) H 08/17/17 03:51 ABG pCO2 53 mmHg (35-45) H 08/18/17 05:43 ABG pO2 107 mmHg (85-104) H 08/18/17 05:43 ABG HCO3 32 mEq/L (21-27) H 08/18/17 05:43 ABG Total CO2 34 mEq/L (20-26) H 08/18/17 05:43 ABG Base Excess 6 mEq/L (-2 to 3) H 08/18/17 05:43 Sodium 147 mEq/L (136-145) H 08/18/17 03:40 Carbon Dioxide 30 mEq/L (19-29) H 08/18/17 03:40 BUN 60 mg/dL (8-26) H 08/18/17 03:40 Creatinine 2.95 mg/dL (0.72-1.25) H 08/18/17 03:40 Est GFR ( Amer) 25 (> 60) L 08/18/17 03:40 Est GFR (Non-Af Amer) 21 (> 60) L 08/18/17 03:40 Glucose 123 mg/dL (70-99) H 08/18/17 03:40 POC Glucose 147 (58-89) H 08/17/17 23:08 Hemoglobin A1c 7.4 % (-5.6) H 08/15/17 05:02 Calculated Osmolality 322 (280-300) H 08/18/17 03:40 Calcium 8.0 mg/dL (8.6-10.8) L 08/18/17 03:40 Ionized Calcium 1.04 mmol/L (1.15-1.35) L 08/18/17 04:00 Troponin I 1.08 ng/mL (0-0.03) H* 08/15/17 12:00 Serum Total Protein 5.1 g/dL (6.0-8.3) L 08/18/17 03:40 Albumin 2.5 g/dL (3.5-5.0) L 08/18/17 03:40 Albumin/Globulin Ratio 1.0 (1.1-2.2) L 08/18/17 03:40 Urine Clarity Turbid (Clear) A 08/14/17 20:57 Urine Protein >=300 mg/dL (Neg-Trace) H 08/14/17 20:57 Urine Ketones Trace mg/dL (Negative) H 08/14/17 20:57 Urine Blood Large (Negative) H 08/14/17 20:57 Ur Leukocyte Esterase Large (Negative) H 08/14/17 20:57 Urine Microscopic RBC TNTC per hpf (0-3) H 08/14/17 20:57 Urine Microscopic WBC TNTC per hpf (0-3) H 08/14/17 20:57 Urine Yeast Few per hpf (None Seen) H 08/14/17 20:57 Ur Culture Indicated? YES (NO) A 08/14/17 20:57 Vancomycin Trough 39.8 mcg/mL (10-20) H* 08/16/17 21:05 - Attending Attestation I examined this patient and my medical decision-making was reviewed with the Resident Physician. I agree with the documented findings, disposition and treatment plan as described except to the extent set forth below. Palliative Quality Code Status: 08/15/17 00:52 Resuscitation Status: Active [RES] Routine Comment: Resuscitation Status: Full Code - Labs CBC & Chem 7: 08/18/17 03:40 08/18/17 03:40 Labs: Laboratory Results - last 24 hr 08/17/17 08/17/17 08/17/17 11:10 11:20 12:02 WBC RBC Hgb Hct MCV MCH MCHC RDW Plt Count MPV Immature Gran % Seg Neutrophils % Lymphocytes % Monocytes % Eosinophils % Basophils % Neutrophils # Lymphocytes # Monocytes # Eosinophils # Basophils # Immature Plt Fraction PT INR Sample Site ABG pH ABG pCO2 ABG pO2 ABG HCO3 ABG Total CO2 ABG O2 Saturation ABG Base Excess Esteban Test Respiration Rate O2 Delivery Device Blood Gas Modality Inspired O2 Tidal Volume PEEP Sodium Potassium 4.0 Chloride Carbon Dioxide BUN Creatinine Est GFR ( Amer) Est GFR (Non-Af Amer) BUN/Creatinine Ratio Glucose POC Glucose 185 H Calculated Osmolality Calcium Ionized Calcium 1.08 L Magnesium Total Bilirubin Direct Bilirubin Indirect Bilirubin AST ALT Alkaline Phosphatase Serum Total Protein Albumin Globulin Albumin/Globulin Ratio Random Vancomycin Blood Type O POSITIVE Antibody Screen NEGATIVE Crossmatch See Detail 08/17/17 08/17/17 08/17/17 17:38 21:30 21:30 WBC RBC Hgb 7.6 L Hct 24.3 L MCV MCH MCHC RDW Plt Count MPV Immature Gran % Seg Neutrophils % Lymphocytes % Monocytes % Eosinophils % Basophils % Neutrophils # Lymphocytes # Monocytes # Eosinophils # Basophils # Immature Plt Fraction PT INR Sample Site ABG pH ABG pCO2 ABG pO2 ABG HCO3 ABG Total CO2 ABG O2 Saturation ABG Base Excess Esteban Test Respiration Rate O2 Delivery Device Blood Gas Modality Inspired O2 Tidal Volume PEEP Sodium Potassium Chloride Carbon Dioxide BUN Creatinine Est GFR ( Amer) Est GFR (Non-Af Amer) BUN/Creatinine Ratio Glucose POC Glucose 188 H Calculated Osmolality Calcium Ionized Calcium 1.02 L Magnesium Total Bilirubin Direct Bilirubin Indirect Bilirubin AST ALT Alkaline Phosphatase Serum Total Protein Albumin Globulin Albumin/Globulin Ratio Random Vancomycin Blood Type Antibody Screen Crossmatch 08/17/17 08/18/17 08/18/17 23:08 03:40 03:40 WBC 13.5 H D RBC 2.75 L Hgb 8.0 L Hct 25.1 L MCV 91.3 MCH 29.1 MCHC 31.9 RDW 18.3 H Plt Count 92 L MPV 13.1 H Immature Gran % 0.6 Seg Neutrophils % 79.2 Lymphocytes % 8.0 Monocytes % 11.1 Eosinophils % 0.8 Basophils % 0.3 Neutrophils # 10.7 H Lymphocytes # 1.1 Monocytes # 1.5 H Eosinophils # 0.1 Basophils # 0.0 Immature Plt Fraction 12.3 H PT 15.8 H INR 1.5 Sample Site ABG pH ABG pCO2 ABG pO2 ABG HCO3 ABG Total CO2 ABG O2 Saturation ABG Base Excess Esteban Test Respiration Rate O2 Delivery Device Blood Gas Modality Inspired O2 Tidal Volume PEEP Sodium Potassium Chloride Carbon Dioxide BUN Creatinine Est GFR ( Amer) Est GFR (Non-Af Amer) BUN/Creatinine Ratio Glucose POC Glucose 147 H Calculated Osmolality Calcium Ionized Calcium Magnesium Total Bilirubin Direct Bilirubin Indirect Bilirubin AST ALT Alkaline Phosphatase Serum Total Protein Albumin Globulin Albumin/Globulin Ratio Random Vancomycin Blood Type Antibody Screen Crossmatch 08/18/17 08/18/17 08/18/17 03:40 03:40 04:00 WBC RBC Hgb Hct MCV MCH MCHC RDW Plt Count MPV Immature Gran % Seg Neutrophils % Lymphocytes % Monocytes % Eosinophils % Basophils % Neutrophils # Lymphocytes # Monocytes # Eosinophils # Basophils # Immature Plt Fraction PT INR Sample Site ABG pH ABG pCO2 ABG pO2 ABG HCO3 ABG Total CO2 ABG O2 Saturation ABG Base Excess Esteban Test Respiration Rate O2 Delivery Device Blood Gas Modality Inspired O2 Tidal Volume PEEP Sodium 147 H Potassium 4.0 Chloride 109 Carbon Dioxide 30 H BUN 60 H Creatinine 2.95 H Est GFR ( Amer) 25 L Est GFR (Non-Af Amer) 21 L BUN/Creatinine Ratio 20 Glucose 123 H POC Glucose Calculated Osmolality 322 H Calcium 8.0 L Ionized Calcium 1.04 L Magnesium 2.5 Total Bilirubin 0.9 Direct Bilirubin 0.5 Indirect Bilirubin 0.4 AST 21 ALT 27 Alkaline Phosphatase 80 Serum Total Protein 5.1 L Albumin 2.5 L Globulin 2.6 Albumin/Globulin Ratio 1.0 L Random Vancomycin 35.4 Blood Type Antibody Screen Crossmatch 08/18/17 05:43 WBC RBC Hgb Hct MCV MCH MCHC RDW Plt Count MPV Immature Gran % Seg Neutrophils % Lymphocytes % Monocytes % Eosinophils % Basophils % Neutrophils # Lymphocytes # Monocytes # Eosinophils # Basophils # Immature Plt Fraction PT INR Sample Site R Radial ABG pH 7.39 ABG pCO2 53 H ABG pO2 107 H ABG HCO3 32 H ABG Total CO2 34 H ABG O2 Saturation 98 ABG Base Excess 6 H Esteban Test N/A Respiration Rate 12 O2 Delivery Device Adult Vent Blood Gas Modality ASSIST CONTROL Inspired O2 40.0 Tidal Volume 500 PEEP 5 Sodium Potassium Chloride Carbon Dioxide BUN Creatinine Est GFR ( Amer) Est GFR (Non-Af Amer) BUN/Creatinine Ratio Glucose POC Glucose Calculated Osmolality Calcium Ionized Calcium Magnesium Total Bilirubin Direct Bilirubin Indirect Bilirubin AST ALT Alkaline Phosphatase Serum Total Protein Albumin Globulin Albumin/Globulin Ratio Random Vancomycin Blood Type Antibody Screen Crossmatch - ABG Interpretation ABG results: ABG ABG pH 7.39 pH Units (7.32-7.45) 08/18/17 05:43 ABG pCO2 53 mmHg (35-45) H 08/18/17 05:43 ABG pO2 107 mmHg (85-104) H 08/18/17 05:43 ABG O2 Saturation 98 % (95-98) 08/18/17 05:43 PT/INR, D-dimer PT 15.8 Seconds (9.4-12.1) H 08/18/17 03:40
[2017-08-18] MEDS: Budesonide/Formoterol 160/4.5 MDI IH SCH ×2 (07:54→21:30)
--- NOTE | 2017-08-18 09:42 | Nephrology Progress Note ---
Date of Encounter: 08/18/17 Time of Encounter: 09:15 - Assessment and Plan (1) Acute kidney injury Current Visit: Yes Status: Acute YUMIKO in setting of cardiac arrest, hypovolemia, Vanc toxicity. Will monitor, no immediate need for dialysis. Avoid nephrotoxins. Hgb 8.0. Documented urine output 350 cc. Subjective Principal diagnosis: Cardiac Arrest Interval history: Intubated, sedated, no pressors. Objective - Vital Signs Vital signs: Vital Signs Temp Pulse Resp BP Pulse Ox 08/18/17 09:13 12 131/66 99 08/18/17 09:00 56 12 131/65 99 08/18/17 08:00 56 12 131/65 99 08/18/17 07:42 12 126/66 99 08/18/17 07:00 97.7 F 56 12 131/65 99 08/18/17 06:38 11 128/80 100 08/18/17 05:50 57 12 120/63 100 08/18/17 04:53 53 12 116/68 100 08/18/17 03:50 12 112/59 100 08/18/17 03:47 54 12 100 08/18/17 03:00 97.9 F 53 08/18/17 02:59 55 12 115/66 100 08/18/17 02:00 56 12 112/69 100 08/18/17 01:54 EDT 59 12 116/62 98 08/18/17 01:29 EDT 12 112/79 98 08/18/17 01:00 EDT 57 12 112/79 97 08/17/17 23:57 12 126/71 97 08/17/17 23:49 62 12 126/71 97 08/17/17 23:18 59 08/17/17 23:03 97.7 F 08/17/17 22:52 59 12 133/68 97 08/17/17 22:00 60 12 129/65 97 08/17/17 21:40 12 129/65 97 08/17/17 20:22 99.8 F H 63 12 117/55 97 08/17/17 20:00 99.8 F H 59 12 117/55 97 08/17/17 19:55 12 116/56 97 08/17/17 19:00 98.6 F 65 12 114/54 98 08/17/17 18:08 98.9 F 64 12 118/53 98 08/17/17 18:06 100.5 F H 64 12 118/53 98 08/17/17 17:58 12 98 08/17/17 17:53 100.5 F H 64 12 119/55 97 08/17/17 17:00 64 12 119/56 98 08/17/17 16:02 12 97 08/17/17 16:00 98.7 F 66 12 121/88 98 08/17/17 15:00 64 12 122/56 98 08/17/17 14:06 12 98 08/17/17 14:00 60 12 115/55 98 08/17/17 13:35 59 12 111/54 99 08/17/17 12:00 98.2 F 58 12 110/61 81 08/17/17 11:00 56 12 107/58 99 Intake and Output 08/18/17 08/18/17 08/18/17 00:59 07:59 15:59 Intake Total Output Total Balance Intake: IV Fluids FentaNYL (PF) 1,000 MCG In 0.9 % Sodium Chloride 80 ML @ 50 MCG/HR 5 mls/hr IVC CONT DAV Rx #:[id number] Calcium Gluconate 1,000 MG In 0 .9 % Sodium Chloride 50 ML @ 30 mls/hr IVPB Q6HR PRN Rx#: [id number] Zosyn 3.375 GM In Dextrose 5% ( ADD-Stow) 50 ML @ 12.5 mls/ hr IVPB Q8HR DAV Rx#:[id number] Tube Feeding Blood Product Rbcs Leuko Poor As-3 2nd Unit [id number] Output: Catheter Other: Weight Blood Glucose* Patient Weight 08/18/17 22:59 Weight 86.7 kg - General Appearance General appearance: Present: chronically ill EENT: Present: mucous membranes moist Neck: Present: no JVD Additional Comments: diminished Cardiology: Present: edema, regular rate, regular rhythm Additional Comments: 2-3+ edema Gastrointestinal: Present: hypoactive bowel sounds, distended Integumentary: Present: warm and dry - Lab 08/18/17 03:40 08/18/17 03:40 Most recent lab results ABG pH 7.39 pH Units (7.32-7.45) 08/18/17 05:43 ABG pCO2 53 mmHg (35-45) H 08/18/17 05:43 ABG pO2 107 mmHg (85-104) H 08/18/17 05:43 ABG HCO3 32 mEq/L (21-27) H 08/18/17 05:43 ABG O2 Saturation 98 % (95-98) 08/18/17 05:43 Calcium 8.0 mg/dL (8.6-10.8) L 08/18/17 03:40 Phosphorus 3.6 mg/dL (2.3-4.7) 08/17/17 03:51 Magnesium 2.5 mg/dL (1.6-2.6) 08/18/17 03:40 Consult Discharge Plan - Plan Referrals: Poncho Noriega MD [Primary Care Provider] -
--- NOTE | 2017-08-18 10:01 | Pulmonology Progress Note ---
Date of Encounter: 08/18/17 Time of Encounter: 10:00 Assessment and Plan (1) Cardiac arrest Current Visit: Yes Status: Acute Management was reviewed during multidisciplinary critical care rounds. Neuropsych: s/p Cardiac arrest. Head Ct w/o acute process. Still not breathing over the ventilator suspect some degree of anoxic brain injury repeat head CT tomorrow Pulm:acute hypoxic respiratory failure suspected aspiration. Minimal vent settings SBT failed today because of apnea. Will reassess tomorrow cont volume- cycled ventilation Cards: S/p PEA Arrest with ROSC after approx 20min. Shock has resolved. ECHO shows HFrEF. Appreciate Cardiology recs- no acute intervention. Evaluated by cardiology and this may reflect acute coronary syndrome although no intervention is planned at present cont low dose BB and ASA FEN-GI:PPi prophylaxis cont trophic enteral nutrition today. Renal: YUMIKO worsening Suspect. ATN and possible vancomycin cont Colloid administration. monitor LYtes no acute indication for dialysis. K+ wnl ID: Suspected Sepsis (concerning for Aspiration) complicated by underlying LE ulcers on antibiotics. Cot Vanc (pharmacy dosed per renal function and/Zosyn).. Cultures Pending Berna in Urine cont to monitor Heme/Onc: Acute on chronic anemia status post transfusion hemoglobin around 8 and stable we will recheck tomorrow Endo: Glucose Monitored and appropriate. Cont Bolus dosing insulin. Integ/MSK: Skin Care per routine ICU Nursing Protocol to prevent ulcers. Lines: All lines examined without evidence of infection Dispo: Remains in ICU for ongoing ventilator dependence CODE:Full Code. Overall Poor prognosis Palliative care has been consulted. I spoke with the patient's son Heriberto who is also his healthcare power of section gang worker and went over dad's current situation which given the amount of time that the patient underwent cardiac arrest portends overall poor prognosis and now with difficulty with liberation ventilator goals of care discussion to be had with the son and brother along with ICU team and palliative care team hopefully this Saturday. In interim son change CODE STATUS to DNAR which is medically very appropriate (2) Diabetic ulcer of both feet Current Visit: Yes Status: Chronic (3) Elevated troponin Current Visit: No Status: Resolved (4) Diabetes Current Visit: No Status: Chronic 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 mellitus half-way insulin use: without long winder tender use Qualified Code( s): E11.621 - Type 2 diabetes mellitus with foot ulcer; L97.509 - Non-pressure chronic ulcer of other part of unspecified foot with unspecified severity; L97.509 - Non-pressure chronic ulcer of other part of unspecified foot with unspecified severity; L97.509 - Non-pressure chronic ulcer of other part of unspecified foot with unspecified severity; L97.509 - Non-pressure chronic ulcer of other part of unspecified foot with unspecified severity (5) DVT prophylaxis Current Visit: No Status: Acute (6) CAD (coronary artery disease) Current Visit: No Status: Chronic Qualifiers: Coronary Disease-Associated Artery/Lesion type: [place] artery [place] vs. transplanted heart: [place] heart Associated angina: without angina Qualified Code(s): I25.10 - Atherosclerotic heart disease of [place] coronary artery without angina pectoris (7) Acute respiratory failure Current Visit: Yes Status: Acute Qualifiers: Respiratory failure complication: hypoxia Qualified Code(s): J96.01 - Acute respiratory failure with hypoxia (8) Septic shock Current Visit: Yes Status: Acute (9) Goals of care, counseling/discussion Current Visit: Yes Status: Acute (10) Encephalopathy Current Visit: Yes Status: Acute (11) Seizure Current Visit: Yes Status: Acute Subjective Principal diagnosis: Cardiac Arrest Interval history: No acute events overnight urine output remains marginal failed CPAP trial earlier today after 15 minutes because of apnea. He is not on any narcotic at present but does have moments of pain which are being treated with intermittent boluses as needed. Objective PUL Vital signs: Last Vital Signs Temp 97.7 F 08/18/17 07:00 Pulse 56 08/18/17 09:00 Resp 12 08/18/17 09:13 BP 131/66 08/18/17 09:13 Pulse Ox 99 08/18/17 09:13 General appearance: no acute distress Effort: normal Cardiovascular: regular rate and rhythm Gastrointestinal: hypoactive bowel sounds, non-tender Extremities: anasarca pupils equal and round, other (Patient noted to have spontaneous movement of all extremities withdraws to pain without clear focal deficit) Ventilator Settings Ventilator Settings: Ventilator Settings, Last 8 Hours Ventilator Mode VC+ Ventilator Mode VC+ Ventilator Mode VC+ Ventilator Mode VC+ Ventilator Mode VC+ Ventilator Mode VC+ Ventilator Mode VC+ Ventilator Mode VC+ Ventilator Mode VC+ Ventilator Tidal Volume 500 Setting Ventilator Tidal Volume 500 Setting Ventilator Tidal Volume 500 Setting Ventilator Tidal Volume 500 Setting Ventilator Tidal Volume 500 Setting Ventilator Tidal Volume 500 Setting Ventilator Tidal Volume 500 Setting Ventilator Tidal Volume 500 Setting Ventilator Tidal Volume 500 Setting Ventilator Respiratory Rate 12 Setting Ventilator Respiratory Rate 12 Setting Ventilator Respiratory Rate 12 Setting Ventilator Respiratory Rate 12 Setting Ventilator Respiratory Rate 12 Setting Ventilator Respiratory Rate 12 Setting Ventilator Respiratory Rate 12 Setting Ventilator Respiratory Rate 12 Setting Ventilator Respiratory Rate 12 Setting Actual Respiratory Rate 12 Actual Respiratory Rate 12 Actual Respiratory Rate 12 Actual Respiratory Rate 12 Actual Respiratory Rate 12 Actual Respiratory Rate 12 Actual Respiratory Rate 12 Actual Respiratory Rate 12 Actual Respiratory Rate 12 Actual Respiratory Rate 12 Actual Respiratory Rate 12 Positive End Expiratory 5 Pressure Positive End Expiratory 5 Pressure Positive End Expiratory 5 Pressure Positive End Expiratory 5 Pressure Positive End Expiratory 5 Pressure Positive End Expiratory 5 Pressure Positive End Expiratory 5 Pressure Positive End Expiratory 5 Pressure Positive End Expiratory 5 Pressure Positive End Expiratory 5 Pressure Positive End Expiratory 5 Pressure Positive End Expiratory 5 Pressure Peak Inspiratory Airway 27 Pressure Peak Inspiratory Airway 16 Pressure Peak Inspiratory Airway 26 Pressure Peak Inspiratory Airway 25 Pressure Peak Inspiratory Airway 25 Pressure Peak Inspiratory Airway 26 Pressure Peak Inspiratory Airway 25 Pressure Peak Inspiratory Airway 26 Pressure Peak Inspiratory Airway 27 Pressure Results - Laboratory Findings CBC and BMP: 08/18/17 03:40 08/18/17 03:40 ABG ABG pH 7.39 pH Units (7.32-7.45) 08/18/17 05:43 ABG pCO2 53 mmHg (35-45) H 08/18/17 05:43 ABG pO2 107 mmHg (85-104) H 08/18/17 05:43 ABG O2 Saturation 98 % (95-98) 08/18/17 05:43 PT/INR, D-dimer PT 15.8 Seconds (9.4-12.1) H 08/18/17 03:40 Abnormal lab findings: Abnormal lab results WBC 13.5 K/mcL (4.3-11.1) H D 08/18/17 03:40 RBC 2.75 M/mcL (4.19-5.50) L 08/18/17 03:40 Hgb 8.0 g/dL (12.9-16.9) L 08/18/17 03:40 Hct 25.1 % (37.5-50.1) L 08/18/17 03:40 RDW 18.3 % (11.5-14.5) H 08/18/17 03:40 Plt Count 92 K/mcL (140-400) L 08/18/17 03:40 MPV 13.1 fL (9.4-12.4) H 08/18/17 03:40 Neutrophils # 10.7 K/mcL (1.6-8.9) H 08/18/17 03:40 Monocytes # 1.5 K/mcL (0.0-1.3) H 08/18/17 03:40 Immature Plt Fraction 12.3 % (1.1-6.1) H 08/18/17 03:40 PT 15.8 Seconds (9.4-12.1) H 08/18/17 03:40 APTT 58.0 Seconds (26.0-36.0) H 08/17/17 03:51 ABG pCO2 53 mmHg (35-45) H 08/18/17 05:43 ABG pO2 107 mmHg (85-104) H 08/18/17 05:43 ABG HCO3 32 mEq/L (21-27) H 08/18/17 05:43 ABG Total CO2 34 mEq/L (20-26) H 08/18/17 05:43 ABG Base Excess 6 mEq/L (-2 to 3) H 08/18/17 05:43 Sodium 147 mEq/L (136-145) H 08/18/17 03:40 Carbon Dioxide 30 mEq/L (19-29) H 08/18/17 03:40 BUN 60 mg/dL (8-26) H 08/18/17 03:40 Creatinine 2.95 mg/dL (0.72-1.25) H 08/18/17 03:40 Est GFR ( Amer) 25 (> 60) L 08/18/17 03:40 Est GFR (Non-Af Amer) 21 (> 60) L 08/18/17 03:40 Glucose 123 mg/dL (70-99) H 08/18/17 03:40 POC Glucose 147 (58-89) H 08/17/17 23:08 Hemoglobin A1c 7.4 % (-5.6) H 08/15/17 05:02 Calculated Osmolality 322 (280-300) H 08/18/17 03:40 Calcium 8.0 mg/dL (8.6-10.8) L 08/18/17 03:40 Ionized Calcium 1.04 mmol/L (1.15-1.35) L 08/18/17 04:00 Troponin I 1.08 ng/mL (0-0.03) H* 08/15/17 12:00 Serum Total Protein 5.1 g/dL (6.0-8.3) L 08/18/17 03:40 Albumin 2.5 g/dL (3.5-5.0) L 08/18/17 03:40 Albumin/Globulin Ratio 1.0 (1.1-2.2) L 08/18/17 03:40 Urine Clarity Turbid (Clear) A 08/14/17 20:57 Urine Protein >=300 mg/dL (Neg-Trace) H 08/14/17 20:57 Urine Ketones Trace mg/dL (Negative) H 08/14/17 20:57 Urine Blood Large (Negative) H 08/14/17 20:57 Ur Leukocyte Esterase Large (Negative) H 08/14/17 20:57 Urine Microscopic RBC TNTC per hpf (0-3) H 08/14/17 20:57 Urine Microscopic WBC TNTC per hpf (0-3) H 08/14/17 20:57 Urine Yeast Few per hpf (None Seen) H 08/14/17 20:57 Ur Culture Indicated? YES (NO) A 08/14/17 20:57 Vancomycin Trough 39.8 mcg/mL (10-20) H* 08/16/17 21:05 - Microbiology Findings Microbiology Findings: Microbiology, Last 48 Hours 08/17/17 03:51 Sputum Culture - Preliminary Sputum - Clinical Findings Intake & Output: Intake & Output 08/18/17 08/18/17 08/18/17 00:59 07:59 15:59 Intake Total Output Total Balance Weight Consult Discharge Plan - Plan Referrals: Poncho Noriega MD [Primary Care Provider] -
[2017-08-18] MEDS: Aspirin 81 MG TAB.CHEW PO SCH (10:26)
[2017-08-18] MEDS: Sennosides/Docusate Sodium TABLET PO SCH ×2 (10:37→19:25)
[2017-08-18] MEDS: Pantoprazole 40 MG VIAL IVP SCH (10:37)
[2017-08-18] MEDS: Chlorhexidine Rinse 15 ML MOUTHWASH MM SCH ×2 (10:37→19:26)
[2017-08-18] MEDS: Piperacillin/Tazobactam 3.375 GM in D5% in Water 50 ML IVPB SCH ×3 (10:39→23:24)
[2017-08-19] MEDS: FentaNYL (PF) 1,000 MCG in 0.9 % Sodium Chloride 80 ML IVC SCH ×2 (02:00→18:47)
[2017-08-19] MEDS: Lacri-Lube 3.5 GM TUBE BOTH EYES SCH ×5 (03:27→21:40)
[2017-08-19 04:11] LABS: Basophils % 0.3 %; Eosinophils % 1.2 %; Hematocrit 25.5 % (37.5-50.1); Hemoglobin 7.9 g/dL (12.9-16.9)
[2017-08-19 04:13] LABS: Eosinophils # 0.1 K/mcL (0.0-0.6); Immature Granulocytes % 0.4 % (0-4); Immature Platelets 13.2 % (1.1-6.1); Lymphocytes # 0.7 K/mcL (0.6-4.6); Mean Corpuscular Hemoglobin 28.5 pg (28.0-33.3); Mean Corpuscular Volume 92.1 fL (83.0-100.0); Nucleated Red Blood Cells 0.2 /100 WBC (0); Red Blood Count 2.77 M/mcL (4.19-5.50); Segmented Neutrophils % 81.1 %
[2017-08-19 04:14] LABS: Neutrophils # 8.4 K/mcL (1.6-8.9); Platelet Count 78 K/mcL (140-400)
[2017-08-19 04:17] LABS: INR 1.4; Prothrombin Time 14.9 Seconds (9.4-12.1)
[2017-08-19 04:30] LABS: Albumin 2.2 g/dL (3.5-5.0); Albumin/Globulin Ratio 0.8 (1.1-2.2); Bilirubin,Direct 0.4 mg/dL (0.0-0.5); Bilirubin,Indirect 0.4 mg/dL (0.0-1.2); Bilirubin,Total 0.8 mg/dL (0.2-1.2); Calcium 7.9 mg/dL (8.6-10.8); Globulin 2.7 g/dL (2.4-3.5); Magnesium 2.4 mg/dL (1.6-2.6); Potassium 3.8 mEq/L (3.5-4.5); Total Protein 4.9 g/dL (6.0-8.3)
[2017-08-19] MEDS: Insulin LISPRO 300 UNITS/3 ML VIAL SQ SCH ×3 (05:42→18:27)
[2017-08-19] MEDS: *HR* Heparin 5,000 UNIT/ML VIAL SQ SCH ×3 (05:47→21:41)
--- NOTE | 2017-08-19 07:45 | Pulmonology Progress Note ---
<Yohana Ocasio - Last Filed: 08/19/17 07:44> Date of Encounter: 08/19/17 Time of Encounter: 07:45 Subjective Principal diagnosis: Cardiac Arrest Objective PUL Vital signs: Last Vital Signs Temp 97.1 F L 08/19/17 03:48 Pulse 52 08/19/17 06:00 Resp 16 08/19/17 07:24 BP 136/94 08/19/17 06:00 Pulse Ox 100 08/19/17 07:24 Ventilator Settings Ventilator Settings: Ventilator Settings, Last 8 Hours Ventilator Mode VC+ Ventilator Mode VC+ Ventilator Mode VC+ Ventilator Mode VC+ Ventilator Mode VC+ Ventilator Mode VC+ Ventilator Mode VC+ Ventilator Mode VC+ Ventilator Mode VC+ Ventilator Mode VC+ Ventilator Mode VC+ Ventilator Tidal Volume 500 Setting Ventilator Tidal Volume 500 Setting Ventilator Tidal Volume 500 Setting Ventilator Tidal Volume 500 Setting Ventilator Tidal Volume 500 Setting Ventilator Tidal Volume 500 Setting Ventilator Tidal Volume 500 Setting Ventilator Tidal Volume 500 Setting Ventilator Tidal Volume 500 Setting Ventilator Tidal Volume 500 Setting Ventilator Tidal Volume 500 Setting Ventilator Respiratory Rate 12 Setting Ventilator Respiratory Rate 12 Setting Ventilator Respiratory Rate 12 Setting Ventilator Respiratory Rate 12 Setting Ventilator Respiratory Rate 12 Setting Ventilator Respiratory Rate 12 Setting Ventilator Respiratory Rate 12 Setting Ventilator Respiratory Rate 12 Setting Ventilator Respiratory Rate 12 Setting Ventilator Respiratory Rate 12 Setting Ventilator Respiratory Rate 12 Setting Actual Respiratory Rate 15 Actual Respiratory Rate 12 Actual Respiratory Rate 12 Actual Respiratory Rate 12 Actual Respiratory Rate 12 Actual Respiratory Rate 12 Actual Respiratory Rate 12 Actual Respiratory Rate 12 Actual Respiratory Rate 12 Actual Respiratory Rate 12 Actual Respiratory Rate 12 Positive End Expiratory 5 Pressure Positive End Expiratory 5 Pressure Positive End Expiratory 5 Pressure Positive End Expiratory 5 Pressure Positive End Expiratory 5 Pressure Positive End Expiratory 5 Pressure Positive End Expiratory 5 Pressure Positive End Expiratory 5 Pressure Positive End Expiratory 5 Pressure Positive End Expiratory 5 Pressure Positive End Expiratory 5 Pressure Peak Inspiratory Airway 24 Pressure Peak Inspiratory Airway 24 Pressure Peak Inspiratory Airway 24 Pressure Peak Inspiratory Airway 23 Pressure Peak Inspiratory Airway 23 Pressure Results - Laboratory Findings CBC and BMP: 08/19/17 03:02 08/19/17 03:45 ABG ABG pH 7.39 pH Units (7.32-7.45) 08/18/17 05:43 ABG pCO2 53 mmHg (35-45) H 08/18/17 05:43 ABG pO2 107 mmHg (85-104) H 08/18/17 05:43 ABG O2 Saturation 98 % (95-98) 08/18/17 05:43 PT/INR, D-dimer PT 14.9 Seconds (9.4-12.1) H 08/19/17 03:02 Abnormal lab findings: Abnormal lab results RBC 2.77 M/mcL (4.19-5.50) L 08/19/17 03:02 Hgb 7.9 g/dL (12.9-16.9) L 08/19/17 03:02 Hct 25.5 % (37.5-50.1) L 08/19/17 03:02 MCHC 31.0 g/dL (31.6-35.5) L 08/19/17 03:02 RDW 18.0 % (11.5-14.5) H 08/19/17 03:02 Plt Count 78 K/mcL (140-400) L 08/19/17 03:02 MPV 13.0 fL (9.4-12.4) H 08/19/17 03:02 Nucleated RBCs/100 WBC 0.2 /100 WBC (0) H 08/19/17 03:02 Immature Plt Fraction 13.2 % (1.1-6.1) H 08/19/17 03:02 PT 14.9 Seconds (9.4-12.1) H 08/19/17 03:02 APTT 58.0 Seconds (26.0-36.0) H 08/17/17 03:51 ABG pCO2 53 mmHg (35-45) H 08/18/17 05:43 ABG pO2 107 mmHg (85-104) H 08/18/17 05:43 ABG HCO3 32 mEq/L (21-27) H 08/18/17 05:43 ABG Total CO2 34 mEq/L (20-26) H 08/18/17 05:43 ABG Base Excess 6 mEq/L (-2 to 3) H 08/18/17 05:43 Sodium 150 mEq/L (136-145) H 08/19/17 03:45 Chloride 111 mEq/L (98-109) H 08/19/17 03:45 BUN 68 mg/dL (8-26) H 08/19/17 03:45 Creatinine 2.95 mg/dL (0.72-1.25) H 08/19/17 03:45 Est GFR ( Amer) 25 (> 60) L 08/19/17 03:45 Est GFR (Non-Af Amer) 21 (> 60) L 08/19/17 03:45 Glucose 145 mg/dL (70-99) H 08/19/17 03:45 POC Glucose 186 (58-89) H 08/18/17 23:22 Hemoglobin A1c 7.4 % (-5.6) H 08/15/17 05:02 Calculated Osmolality 332 (280-300) H 08/19/17 03:45 Calcium 7.9 mg/dL (8.6-10.8) L 08/19/17 03:45 Ionized Calcium 1.00 mmol/L (1.15-1.35) L 08/19/17 03:45 Troponin I 1.08 ng/mL (0-0.03) H* 08/15/17 12:00 Serum Total Protein 4.9 g/dL (6.0-8.3) L 08/19/17 03:45 Albumin 2.2 g/dL (3.5-5.0) L 08/19/17 03:45 Albumin/Globulin Ratio 0.8 (1.1-2.2) L 08/19/17 03:45 Urine Clarity Turbid (Clear) A 08/14/17 20:57 Urine Protein >=300 mg/dL (Neg-Trace) H 08/14/17 20:57 Urine Ketones Trace mg/dL (Negative) H 08/14/17 20:57 Urine Blood Large (Negative) H 08/14/17 20:57 Ur Leukocyte Esterase Large (Negative) H 08/14/17 20:57 Urine Microscopic RBC TNTC per hpf (0-3) H 08/14/17 20:57 Urine Microscopic WBC TNTC per hpf (0-3) H 08/14/17 20:57 Urine Yeast Few per hpf (None Seen) H 08/14/17 20:57 Ur Culture Indicated? YES (NO) A 08/14/17 20:57 Vancomycin Trough 39.8 mcg/mL (10-20) H* 08/16/17 21:05 - Microbiology Findings Microbiology Findings: Microbiology, Last 48 Hours 08/17/17 03:51 Sputum Culture - Preliminary Sputum - Clinical Findings Intake & Output: Intake & Output 08/18/17 08/18/17 08/19/17 15:59 23:59 07:59 Intake Total 310 / 310 298 / 298 274 / 274 Output Total 75 / 75 400 / 400 100 / 100 Balance 235 / 235 -102 / -102 174 / 174 Consult Discharge Plan - Plan Referrals: Poncho Noriega MD [Primary Care Provider] - <Robert Rodriguez - Last Filed: 08/19/17 10:34> Date of Encounter: 08/19/17 Assessment and Plan (1) Cardiac arrest Current Visit: Yes Status: Acute (2) Diabetic ulcer of both feet Current Visit: Yes Status: Chronic (3) Diabetes Current Visit: No Status: Chronic 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 mellitus roasterman insulin use: without roasterman use Qualified Code( s): E11.621 - Type 2 diabetes mellitus with foot ulcer; L97.509 - Non-pressure chronic ulcer of other part of unspecified foot with unspecified severity; L97.509 - Non-pressure chronic ulcer of other part of unspecified foot with unspecified severity; L97.509 - Non-pressure chronic ulcer of other part of unspecified foot with unspecified severity; L97.509 - Non-pressure chronic ulcer of other part of unspecified foot with unspecified severity (4) DVT prophylaxis Current Visit: No Status: Acute (5) CAD (coronary artery disease) Current Visit: No Status: Chronic Qualifiers: Coronary Disease-Associated Artery/Lesion type: [place] artery [place] vs. transplanted heart: [place] heart Associated angina: without angina Qualified Code(s): I25.10 - Atherosclerotic heart disease of [place] coronary artery without angina pectoris (6) Acute respiratory failure Current Visit: Yes Status: Acute Qualifiers: Respiratory failure complication: hypoxia Qualified Code(s): J96.01 - Acute respiratory failure with hypoxia (7) Septic shock Current Visit: Yes Status: Acute (8) Goals of care, counseling/discussion Current Visit: Yes Status: Acute (9) Encephalopathy Current Visit: Yes Status: Acute (10) Seizure Current Visit: Yes Status: Acute Objective PUL Vital signs: Last Vital Signs Temp 97.9 F 08/19/17 07:53 Pulse 52 08/19/17 07:00 Resp 16 08/19/17 07:24 BP 135/84 08/19/17 07:00 Pulse Ox 100 08/19/17 07:24 Ventilator Settings Ventilator Settings: Ventilator Settings, Last 8 Hours Ventilator Mode VC+ Ventilator Mode VC+ Ventilator Mode VC+ Ventilator Mode VC+ Ventilator Mode VC+ Ventilator Mode VC+ Ventilator Mode VC+ Ventilator Mode VC+ Ventilator Tidal Volume 500 Setting Ventilator Tidal Volume 500 Setting Ventilator Tidal Volume 500 Setting Ventilator Tidal Volume 500 Setting Ventilator Tidal Volume 500 Setting Ventilator Tidal Volume 500 Setting Ventilator Tidal Volume 500 Setting Ventilator Tidal Volume 500 Setting Ventilator Respiratory Rate 12 Setting Ventilator Respiratory Rate 12 Setting Ventilator Respiratory Rate 12 Setting Ventilator Respiratory Rate 12 Setting Ventilator Respiratory Rate 12 Setting Ventilator Respiratory Rate 12 Setting Ventilator Respiratory Rate 12 Setting Ventilator Respiratory Rate 12 Setting Actual Respiratory Rate 15 Actual Respiratory Rate 12 Actual Respiratory Rate 12 Actual Respiratory Rate 12 Actual Respiratory Rate 12 Actual Respiratory Rate 12 Actual Respiratory Rate 12 Actual Respiratory Rate 12 Positive End Expiratory 5 Pressure Positive End Expiratory 5 Pressure Positive End Expiratory 5 Pressure Positive End Expiratory 5 Pressure Positive End Expiratory 5 Pressure Positive End Expiratory 5 Pressure Positive End Expiratory 5 Pressure Positive End Expiratory 5 Pressure Peak Inspiratory Airway 24 Pressure Peak Inspiratory Airway 24 Pressure Peak Inspiratory Airway 24 Pressure Peak Inspiratory Airway 23 Pressure Results - Laboratory Findings CBC and BMP: 08/19/17 03:02 08/19/17 03:45 ABG ABG pH 7.39 pH Units (7.32-7.45) 08/18/17 05:43 ABG pCO2 53 mmHg (35-45) H 08/18/17 05:43 ABG pO2 107 mmHg (85-104) H 08/18/17 05:43 ABG O2 Saturation 98 % (95-98) 08/18/17 05:43 PT/INR, D-dimer PT 14.9 Seconds (9.4-12.1) H 08/19/17 03:02 Abnormal lab findings: Abnormal lab results RBC 2.77 M/mcL (4.19-5.50) L 08/19/17 03:02 Hgb 7.9 g/dL (12.9-16.9) L 08/19/17 03:02 Hct 25.5 % (37.5-50.1) L 08/19/17 03:02 MCHC 31.0 g/dL (31.6-35.5) L 08/19/17 03:02 RDW 18.0 % (11.5-14.5) H 08/19/17 03:02 Plt Count 78 K/mcL (140-400) L 08/19/17 03:02 MPV 13.0 fL (9.4-12.4) H 08/19/17 03:02 Nucleated RBCs/100 WBC 0.2 /100 WBC (0) H 08/19/17 03:02 Immature Plt Fraction 13.2 % (1.1-6.1) H 08/19/17 03:02 PT 14.9 Seconds (9.4-12.1) H 08/19/17 03:02 APTT 58.0 Seconds (26.0-36.0) H 08/17/17 03:51 ABG pCO2 53 mmHg (35-45) H 08/18/17 05:43 ABG pO2 107 mmHg (85-104) H 08/18/17 05:43 ABG HCO3 32 mEq/L (21-27) H 08/18/17 05:43 ABG Total CO2 34 mEq/L (20-26) H 08/18/17 05:43 ABG Base Excess 6 mEq/L (-2 to 3) H 08/18/17 05:43 Sodium 150 mEq/L (136-145) H 08/19/17 03:45 Chloride 111 mEq/L (98-109) H 08/19/17 03:45 BUN 68 mg/dL (8-26) H 08/19/17 03:45 Creatinine 2.95 mg/dL (0.72-1.25) H 08/19/17 03:45 Est GFR ( Amer) 25 (> 60) L 08/19/17 03:45 Est GFR (Non-Af Amer) 21 (> 60) L 08/19/17 03:45 Glucose 145 mg/dL (70-99) H 08/19/17 03:45 POC Glucose 186 (58-89) H 08/18/17 23:22 Hemoglobin A1c 7.4 % (-5.6) H 08/15/17 05:02 Calculated Osmolality 332 (280-300) H 08/19/17 03:45 Calcium 7.9 mg/dL (8.6-10.8) L 08/19/17 03:45 Ionized Calcium 1.00 mmol/L (1.15-1.35) L 08/19/17 03:45 Troponin I 1.08 ng/mL (0-0.03) H* 08/15/17 12:00 Serum Total Protein 4.9 g/dL (6.0-8.3) L 08/19/17 03:45 Albumin 2.2 g/dL (3.5-5.0) L 08/19/17 03:45 Albumin/Globulin Ratio 0.8 (1.1-2.2) L 08/19/17 03:45 Urine Clarity Turbid (Clear) A 08/14/17 20:57 Urine Protein >=300 mg/dL (Neg-Trace) H 08/14/17 20:57 Urine Ketones Trace mg/dL (Negative) H 08/14/17 20:57 Urine Blood Large (Negative) H 08/14/17 20:57 Ur Leukocyte Esterase Large (Negative) H 08/14/17 20:57 Urine Microscopic RBC TNTC per hpf (0-3) H 08/14/17 20:57 Urine Microscopic WBC TNTC per hpf (0-3) H 08/14/17 20:57 Urine Yeast Few per hpf (None Seen) H 08/14/17 20:57 Ur Culture Indicated? YES (NO) A 08/14/17 20:57 Vancomycin Trough 39.8 mcg/mL (10-20) H* 08/16/17 21:05 - Microbiology Findings Microbiology Findings: Microbiology, Last 48 Hours 08/17/17 03:51 Sputum Culture - Preliminary Sputum - Clinical Findings Intake & Output: Intake & Output 08/18/17 08/19/17 08/19/17 23:59 07:59 15:59 Intake Total 298 / 298 274 / 274 Output Total 400 / 400 300 / 300 Balance -102 / -102 -26 / -26 - Attending Attestation I examined this patient and my medical decision-making was reviewed with the Resident Physician. I agree with the documented findings, disposition and treatment plan as described except to the extent set forth below. We independently had [id number] contact with the patient Patient seen and examined at bedside Labs, radiology, chart personally reviewed. Management was reviewed during multidisciplinary critical care rounds. Neuropsych: s/p Cardiac arrest. Head Ct w/o acute process. Still not breathing over the ventilator suspect some degree of anoxic brain injury repeat head CT tomorrow Pulm:acute hypoxic respiratory failure suspected aspiration. Minimal vent settings SBT failed today because of apnea. Will reassess daily Cards: S/p PEA Arrest with ROSC after approx 20min. Shock has resolved. ECHO shows HFrEF. Appreciate Cardiology recs- no acute intervention. Evaluated by cardiology and this may reflect acute coronary syndrome although no intervention is planned at present cont low dose BB and ASA FEN-GI:PPi prophylaxis cont trophic enteral nutrition today. Renal: YUMIKO worsening Suspect. ATN and possible vancomycin cont Colloid administration. monitor LYtes no acute indication for dialysis. K+ wnl. Hypernatremia increase free H20 per enteric tube. ID: Suspected Sepsis (concerning for Aspiration) complicated by underlying LE ulcers on antibiotics. Cont Vanc (pharmacy dosed per renal function and/Zosyn) .. Heme/Onc: Acute on chronic anemia stable Hgb Endo: Glucose Monitored and appropriate. Cont Bolus dosing insulin. Integ/MSK: Skin Care per routine ICU Nursing Protocol to prevent ulcers. Lines: All lines examined without evidence of infection Dispo: Remains in ICU for ongoing ventilator dependence CODE: DNAR plan for family meeting tomorrow.
[2017-08-19] MEDS: Pantoprazole 40 MG VIAL IVP SCH (08:52)
[2017-08-19] MEDS: Aspirin 81 MG TAB.CHEW PO SCH (08:52)
[2017-08-19] MEDS: Piperacillin/Tazobactam 3.375 GM in D5% in Water 50 ML IVPB SCH ×2 (08:52→16:45)
[2017-08-19] MEDS: Sennosides/Docusate Sodium TABLET PO SCH ×2 (08:52→21:40)
[2017-08-19] MEDS: Chlorhexidine Rinse 15 ML MOUTHWASH MM SCH ×2 (08:52→21:40)
--- NOTE | 2017-08-19 09:17 | Nephrology Progress Note ---
Date of Encounter: 08/19/17 Time of Encounter: 09:15 - Assessment and Plan (1) Acute kidney injury Current Visit: Yes Status: Acute The patient has acute kidney injury in the setting of a cardiac arrest that occurred in the extended care facility. His creatinine may be reaching a plateau. Urine output is slowly increasing. He is developing worsening hypernatremia reflecting a free water deficit. I am going to start him on a maintenance IV of D5W. Hopefully his renal function will continue to improve. Currently there is no acute indication for dialysis. (2) Diabetic ulcer of both feet Current Visit: Yes Status: Chronic (3) Atherosclerosis of [place] arteries of right leg with ulceration of other part of foot Current Visit: No Status: Chronic (4) Atherosclerosis of [place] arteries of left leg with ulceration of other part of foot Current Visit: No Status: Chronic Subjective Principal diagnosis: Cardiac Arrest Interval history: The patient remains on the ventilator. From a renal perspective his creatinine may be reaching a plateau. It is 2.95 the same as yesterday. Urine output is increased a bit from 352 days ago to 625 mL yesterday. He is however becoming more hyper and made treatment. Objective - Vital Signs Vital signs: Vital Signs Temp Pulse Resp BP Pulse Ox 08/19/17 07:53 97.9 F 08/19/17 07:24 16 100 08/19/17 06:00 52 12 136/94 100 08/19/17 05:35 12 133/70 100 08/19/17 05:00 50 12 133/70 99 08/19/17 03:48 97.1 F L 47 12 112/60 99 08/19/17 03:38 12 112/60 99 08/19/17 03:00 47 12 121/67 99 08/19/17 02:00 47 12 120/66 99 08/19/17 01:00 47 12 118/72 99 08/19/17 00:27 12 130/66 99 08/19/17 00:00 48 12 130/66 98 08/18/17 23:00 97.7 F 49 12 142/71 98 08/18/17 22:00 49 12 129/69 98 08/18/17 21:30 12 128/67 98 08/18/17 21:00 51 12 126/62 98 08/18/17 19:57 51 12 137/81 98 08/18/17 19:52 12 136/68 99 08/18/17 19:00 96.6 F L 50 12 136/68 98 08/18/17 18:00 53 12 132/84 98 08/18/17 17:22 14 134/68 99 08/18/17 17:00 54 12 134/68 99 08/18/17 16:32 97.1 F L 08/18/17 15:34 12 127/72 99 08/18/17 15:00 54 12 136/76 99 08/18/17 14:00 54 12 122/84 98 08/18/17 13:00 55 12 129/69 99 08/18/17 12:00 97.3 F L 56 12 130/70 99 08/18/17 11:12 12 141/75 99 08/18/17 11:00 56 12 130/70 99 08/18/17 10:00 56 12 128/66 99 Intake and Output 08/18/17 08/19/17 08/19/17 23:59 07:59 15:59 Intake Total 298 / 298 274 / 274 Output Total 400 / 400 300 / 300 Balance -102 / -102 -26 / -26 Intake: IV Fluids 180 / 180 120 / 120 FentaNYL (PF) 1,000 MCG In 0.9 130 / 130 70 / 70 % Sodium Chloride 80 ML @ 50 MCG/HR 5 mls/hr IVC CONT DAV Rx #:[id number] Zosyn 3.375 GM In Dextrose 5% ( 50 / 50 50 / 50 ADD-[place]) 50 ML @ 12.5 mls/ hr IVPB Q8HR DAV Rx#:[id number] Tube Feeding 118 / 118 154 / 154 Output: Catheter 400 / 400 300 / 300 Other: Stool Size Small Stool Consistency soft Stool Color Brown # Bowel Movements 1 Blood Glucose* 148 - General Appearance Exam: Patient is intubated. He is in no acute distress. Vital signs are stable. Lungs diminished breath sounds. Heart regular rate and rhythm. Abdomen is benign. There is lower extremity swelling. The patient has dressings and protective devices on both feet because of foot ulcers. - Lab 08/19/17 03:02 08/19/17 03:45 Most recent lab results ABG pH 7.39 pH Units (7.32-7.45) 08/18/17 05:43 ABG pCO2 53 mmHg (35-45) H 08/18/17 05:43 ABG pO2 107 mmHg (85-104) H 08/18/17 05:43 ABG HCO3 32 mEq/L (21-27) H 08/18/17 05:43 ABG O2 Saturation 98 % (95-98) 08/18/17 05:43 Calcium 7.9 mg/dL (8.6-10.8) L 08/19/17 03:45 Phosphorus 3.6 mg/dL (2.3-4.7) 08/17/17 03:51 Magnesium 2.4 mg/dL (1.6-2.6) 08/19/17 03:45 Consult Discharge Plan - Plan Referrals: Poncho Noriega MD [Primary Care Provider] -
[2017-08-19] MEDS: D5% in Water 1,000 ML IVC SCH (09:51)
[2017-08-19] MEDS: Budesonide/Formoterol 160/4.5 MDI IH SCH ×2 (11:00→21:43)
--- NOTE | 2017-08-19 12:51 | Palliative Progress Note ---
Date of Encounter: 08/19/17 Time of Encounter: 11:15 - Assessment and plan (1) Goals of care, counseling/discussion Current Visit: Yes Status: Acute Assessment and plan: Patient suffered cardiac arrest and now with multiple rib fractures. Patient has not tolerated CPAP trial well and patient now a DNRCC-A. Son Heriberto is traveling to [facility] and is expected to arrive this evening. Plan for family meeting Saturday to discuss current POC and goals moving forward. Patient with diabetic foot ulcers with bilateral foot and lower leg dressings on. (2) Acute respiratory failure Current Visit: Yes Status: Acute Assessment and plan: Patient remains intubated and mechanically ventilated. Patient failed CPAP and had apnea. CT head will be repeated today and continue vent. Current settings FiO2 40%, rate 12. Qualifiers: Respiratory failure complication: hypoxia Qualified Code(s): J96.01 - Acute respiratory failure with hypoxia (3) Nutrition impaired due to imbalance of nutrients Current Visit: Yes Status: Acute Assessment and plan: Patient Albumin and Protein low. Dietary consult obtained. Patient feedings adjusted and free water D5W added to plan. Will monitor labs. Patient has BM today. Patient with diabetic wound and Wound care following. (4) Diabetic ulcer of both feet Current Visit: Yes Status: Chronic Assessment and plan: Wound care following. (5) Cardiac arrest Current Visit: Yes Status: Acute - Time Spent With Patient Total time spent is greater than 50% in coordination of care (as documented) at patient's floor/unit and/or counseling patient: 25 - 35 minutes - Subjective Interval history: Patient s/p cardiac arrest that required CPR. Patient with multiple rib fractures and patient is currently intubated and receiving mechanical intubation. Resting comfortable. No family at bedside. - Constitutional Vitals: Abnormal lab results RBC 2.77 M/mcL (4.19-5.50) L 08/19/17 03:02 Hgb 7.9 g/dL (12.9-16.9) L 08/19/17 03:02 Hct 25.5 % (37.5-50.1) L 08/19/17 03:02 MCHC 31.0 g/dL (31.6-35.5) L 08/19/17 03:02 RDW 18.0 % (11.5-14.5) H 08/19/17 03:02 Plt Count 78 K/mcL (140-400) L 08/19/17 03:02 MPV 13.0 fL (9.4-12.4) H 08/19/17 03:02 Nucleated RBCs/100 WBC 0.2 /100 WBC (0) H 08/19/17 03:02 Immature Plt Fraction 13.2 % (1.1-6.1) H 08/19/17 03:02 PT 14.9 Seconds (9.4-12.1) H 08/19/17 03:02 APTT 58.0 Seconds (26.0-36.0) H 08/17/17 03:51 ABG pCO2 53 mmHg (35-45) H 08/18/17 05:43 ABG pO2 107 mmHg (85-104) H 08/18/17 05:43 ABG HCO3 32 mEq/L (21-27) H 08/18/17 05:43 ABG Total CO2 34 mEq/L (20-26) H 08/18/17 05:43 ABG Base Excess 6 mEq/L (-2 to 3) H 08/18/17 05:43 Sodium 150 mEq/L (136-145) H 08/19/17 03:45 Chloride 111 mEq/L (98-109) H 08/19/17 03:45 BUN 68 mg/dL (8-26) H 08/19/17 03:45 Creatinine 2.95 mg/dL (0.72-1.25) H 08/19/17 03:45 Est GFR ( Amer) 25 (> 60) L 08/19/17 03:45 Est GFR (Non-Af Amer) 21 (> 60) L 08/19/17 03:45 Glucose 145 mg/dL (70-99) H 08/19/17 03:45 POC Glucose 139 (58-89) H 08/19/17 11:22 Hemoglobin A1c 7.4 % (-5.6) H 08/15/17 05:02 Calculated Osmolality 332 (280-300) H 08/19/17 03:45 Calcium 7.9 mg/dL (8.6-10.8) L 08/19/17 03:45 Ionized Calcium 1.00 mmol/L (1.15-1.35) L 08/19/17 03:45 Troponin I 1.08 ng/mL (0-0.03) H* 08/15/17 12:00 Serum Total Protein 4.9 g/dL (6.0-8.3) L 08/19/17 03:45 Albumin 2.2 g/dL (3.5-5.0) L 08/19/17 03:45 Albumin/Globulin Ratio 0.8 (1.1-2.2) L 08/19/17 03:45 Urine Clarity Turbid (Clear) A 08/14/17 20:57 Urine Protein >=300 mg/dL (Neg-Trace) H 08/14/17 20:57 Urine Ketones Trace mg/dL (Negative) H 08/14/17 20:57 Urine Blood Large (Negative) H 08/14/17 20:57 Ur Leukocyte Esterase Large (Negative) H 08/14/17 20:57 Urine Microscopic RBC TNTC per hpf (0-3) H 08/14/17 20:57 Urine Microscopic WBC TNTC per hpf (0-3) H 08/14/17 20:57 Urine Yeast Few per hpf (None Seen) H 08/14/17 20:57 Ur Culture Indicated? YES (NO) A 08/14/17 20:57 Vancomycin Trough 39.8 mcg/mL (10-20) H* 08/16/17 21:05 - Head Head exam: Present: atraumatic, normal inspection - Eye Eye exam: Present: PERRL - ENT ENT exam: Present: mucous membranes moist - Neck Neck exam: Present: normal inspection - Respiratory Respiratory exam: Present: decreased breath sounds - Expanded Respiratory Exam Location: decreased breath sounds: Left, Right, Lower - Cardiovascular Cardiovascular exam: Present: RRR, +S1, +S2 - GI/Abdominal GI/Abdominal exam: Present: normal bowel sounds, soft - Extremities Exam Extremities exam: Present: pedal edema (Bilateral foot dressings) - Neurological Exam Neurological exam: Present: alert (bilateral weakness, follows few commands but weakness) - Psychiatric Psychiatric exam: Present: flat affect - Skin Skin exam: Present: pallor (bilateral lower leg and foot dressings. ), warm Palliative Quality Palliative Quality: Screen for Code Status: Yes, Screen for Goals of Care: Yes, Screen for Pain: No, If Pain Regimen Started, Initiate Bowel Regimen: Yes, Screen for Nausea/Vomitting: No Code Status: 08/15/17 00:52 Resuscitation Status: Active [RES] Routine Comment: Resuscitation Status: Full Code 08/18/17 11:42 CODE [Resuscitation Status: Active] [RES] Routine Comment: Resuscitation Status: DNR-Comfort Care-Arrest - Labs CBC & Chem 7: 08/19/17 03:02 08/19/17 03:45 Labs: Laboratory Results - last 24 hr 08/18/17 08/18/17 08/19/17 18:23 23:22 03:02 WBC 10.4 RBC 2.77 L Hgb 7.9 L Hct 25.5 L MCV 92.1 MCH 28.5 MCHC 31.0 L RDW 18.0 H Plt Count 78 L MPV 13.0 H Immature Gran % 0.4 Seg Neutrophils % 81.1 Lymphocytes % 7.0 Monocytes % 10.0 Eosinophils % 1.2 Basophils % 0.3 Neutrophils # 8.4 Lymphocytes # 0.7 Monocytes # 1.0 Eosinophils # 0.1 Basophils # 0.0 Nucleated RBCs/100 WBC 0.2 H Immature Plt Fraction 13.2 H PT INR Sodium Potassium Chloride Carbon Dioxide BUN Creatinine Est GFR ( Amer) Est GFR (Non-Af Amer) BUN/Creatinine Ratio Glucose POC Glucose 148 H 186 H Calculated Osmolality Calcium Ionized Calcium Magnesium Total Bilirubin Direct Bilirubin Indirect Bilirubin AST ALT Alkaline Phosphatase Serum Total Protein Albumin Globulin Albumin/Globulin Ratio 08/19/17 08/19/17 08/19/17 03:02 03:45 03:45 WBC RBC Hgb Hct MCV MCH MCHC RDW Plt Count MPV Immature Gran % Seg Neutrophils % Lymphocytes % Monocytes % Eosinophils % Basophils % Neutrophils # Lymphocytes # Monocytes # Eosinophils # Basophils # Nucleated RBCs/100 WBC Immature Plt Fraction PT 14.9 H INR 1.4 Sodium 150 H Potassium 3.8 Chloride 111 H Carbon Dioxide 28 BUN 68 H Creatinine 2.95 H Est GFR ( Amer) 25 L Est GFR (Non-Af Amer) 21 L BUN/Creatinine Ratio 23 Glucose 145 H POC Glucose Calculated Osmolality 332 H Calcium 7.9 L Ionized Calcium 1.00 L Magnesium 2.4 Total Bilirubin 0.8 Direct Bilirubin 0.4 Indirect Bilirubin 0.4 AST 16 ALT 22 Alkaline Phosphatase 70 Serum Total Protein 4.9 L Albumin 2.2 L Globulin 2.7 Albumin/Globulin Ratio 0.8 L 08/19/17 11:22 WBC RBC Hgb Hct MCV MCH MCHC RDW Plt Count MPV Immature Gran % Seg Neutrophils % Lymphocytes % Monocytes % Eosinophils % Basophils % Neutrophils # Lymphocytes # Monocytes # Eosinophils # Basophils # Nucleated RBCs/100 WBC Immature Plt Fraction PT INR Sodium Potassium Chloride Carbon Dioxide BUN Creatinine Est GFR ( Amer) Est GFR (Non-Af Amer) BUN/Creatinine Ratio Glucose POC Glucose 139 H Calculated Osmolality Calcium Ionized Calcium Magnesium Total Bilirubin Direct Bilirubin Indirect Bilirubin AST ALT Alkaline Phosphatase Serum Total Protein Albumin Globulin Albumin/Globulin Ratio - ABG Interpretation ABG results: ABG ABG pH 7.39 pH Units (7.32-7.45) 08/18/17 05:43 ABG pCO2 53 mmHg (35-45) H 08/18/17 05:43 ABG pO2 107 mmHg (85-104) H 08/18/17 05:43 ABG O2 Saturation 98 % (95-98) 08/18/17 05:43 PT/INR, D-dimer PT 14.9 Seconds (9.4-12.1) H 08/19/17 03:02 Consult Discharge Plan - Plan Referrals: Poncho Noriega MD [Primary Care Provider] -
[2017-08-20] MEDS: D5% in Water 1,000 ML IVC SCH (00:17)
[2017-08-20] MEDS: Piperacillin/Tazobactam 3.375 GM in D5% in Water 50 ML IVPB SCH ×4 (00:18→23:54)
[2017-08-20] MEDS: Lacri-Lube 3.5 GM TUBE BOTH EYES SCH ×7 (00:18→23:49)
[2017-08-20] MEDS: Insulin LISPRO 300 UNITS/3 ML VIAL SQ SCH ×5 (00:22→23:50)
[2017-08-20 05:00] LABS: Basophils % 0.3 %
[2017-08-20 05:01] LABS: Eosinophils # 0.2 K/mcL (0.0-0.6); Eosinophils % 1.3 %; Immature Granulocytes % 0.6 % (0-4); Immature Platelets 14.1 % (1.1-6.1); Lymphocytes # 0.7 K/mcL (0.6-4.6); Lymphocytes % 6.1 %; Mean Corpuscular HGB Conc 30.8 g/dL (31.6-35.5); Mean Corpuscular Hemoglobin 28.4 pg (28.0-33.3); Mean Corpuscular Volume 92.2 fL (83.0-100.0); Mean Platelet Volume 13.2 fL (9.4-12.4); Monocytes % 8.3 %; Neutrophils # 9.5 K/mcL (1.6-8.9); Red Blood Count 2.82 M/mcL (4.19-5.50); Red Cell Distribution Width 17.5 % (11.5-14.5); Segmented Neutrophils % 83.4 %
[2017-08-20 05:07] LABS: INR 1.3
[2017-08-20 05:14] LABS: Albumin 2.1 g/dL (3.5-5.0); Albumin/Globulin Ratio 0.8 (1.1-2.2); Bilirubin,Direct 0.4 mg/dL (0.0-0.5); Bilirubin,Indirect 0.3 mg/dL (0.0-1.2); Bilirubin,Total 0.7 mg/dL (0.2-1.2); Calcium 7.8 mg/dL (8.6-10.8); Globulin 2.8 g/dL (2.4-3.5); Magnesium 2.2 mg/dL (1.6-2.6); Platelet Count 83 K/mcL (140-400); Potassium 3.7 mEq/L (3.5-4.5); Total Protein 4.9 g/dL (6.0-8.3)
[2017-08-20 05:26] LABS: Platelet Estimate Decreased (Normal)
[2017-08-20] MEDS: *HR* Heparin 5,000 UNIT/ML VIAL SQ SCH ×3 (05:38→21:45)
[2017-08-20] MEDS: Potassium Chloride 40 MEQ/200 ML BAG IVPB PRN (05:38)
[2017-08-20] MEDS: FentaNYL (PF) 1,000 MCG in 0.9 % Sodium Chloride 80 ML IVC SCH ×2 (06:49→20:09)
[2017-08-20] MEDS ORDERED: Furosemide 40 MG/4 ML VIAL IVP ONE (08:07)
--- NOTE | 2017-08-20 08:07 | Nephrology Progress Note ---
Date of Encounter: 08/20/17 Time of Encounter: 08:06 - Assessment and Plan (1) Acute kidney injury Current Visit: Yes Status: Acute The patient has acute kidney injury in the setting of a cardiac arrest that occurred in the extended care facility. His creatinine may be reaching a plateau. Urine output is slowly increasing. Patient will need continued free water administration due to the hypernatremia. He does have some evidence of volume overload. For that reason and also to increase his urine output and going to give him 1 dose of Lasix. (2) Diabetic ulcer of both feet Current Visit: Yes Status: Chronic (3) Atherosclerosis of [place] arteries of right leg with ulceration of other part of foot Current Visit: No Status: Chronic (4) Atherosclerosis of [place] arteries of left leg with ulceration of other part of foot Current Visit: No Status: Chronic Subjective Principal diagnosis: Cardiac Arrest Interval history: The patient remains on the ventilator. From a renal perspective his creatinine is slightly improved compared to yesterday. Creatinine has gone from 2.95 and 2.8. Hypernatremia slightly improved from 148 and 146. Urine output is about the same as 700 mL. He continues on a maintenance IV of D5W to increase his free water intake. Objective - Vital Signs Vital signs: Vital Signs Temp Pulse Resp BP Pulse Ox 08/20/17 06:06 12 99 08/20/17 06:00 54 12 154/78 99 08/20/17 05:39 12 123/64 99 08/20/17 05:07 96.6 F L 08/20/17 05:00 52 12 130/66 98 08/20/17 04:00 53 12 143/80 99 08/20/17 03:19 14 115/59 99 08/20/17 03:00 55 12 115/59 99 08/20/17 02:00 50 12 114/56 100 08/20/17 01:13 12 114/51 100 08/20/17 01:00 52 12 114/51 100 08/20/17 00:25 98.6 F 08/20/17 00:00 52 12 129/73 100 08/19/17 23:48 14 144/78 100 08/19/17 23:00 55 14 115/64 99 08/19/17 22:00 58 12 124/68 97 08/19/17 21:58 15 100 08/19/17 21:45 18 124/56 100 08/19/17 21:44 96.8 F L 08/19/17 21:37 18 124/56 100 08/19/17 21:00 56 12 127/73 99 08/19/17 20:00 57 12 145/75 99 08/19/17 19:48 12 127/80 99 08/19/17 19:00 55 12 138/78 99 08/19/17 18:00 54 12 117/59 98 08/19/17 17:39 12 98 08/19/17 17:00 54 12 145/68 99 08/19/17 16:28 12 99 08/19/17 16:18 96.9 F L 08/19/17 15:00 53 12 148/74 99 08/19/17 14:00 55 12 120/60 98 08/19/17 13:47 12 99 08/19/17 13:00 54 12 131/66 99 08/19/17 12:00 55 12 134/71 99 08/19/17 11:40 96.9 F L 08/19/17 11:02 12 99 08/19/17 11:00 55 14 136/71 99 08/19/17 10:00 55 12 138/86 98 08/19/17 09:20 12 99 08/19/17 09:00 55 12 135/84 98 Intake and Output 08/19/17 08/20/17 08/20/17 23:59 07:59 15:59 Intake Total 1260 / 1260 1492 / 1492 Output Total 275 / 275 225 / 225 Balance 985 / 985 1267 / 1267 Intake: IV Fluids 1110 / 1110 410 / 410 Dextrose 5% 1,000 ML @ 75 mls/ 1000 / 1000 hr IVC .[id number] DAV Rx#: [id number] FentaNYL (PF) 1,000 MCG In 0.9 100 / 100 % Sodium Chloride 80 ML @ 50 MCG/HR 5 mls/hr IVC CONT DAV Rx #:[id number] Calcium Gluconate 1,000 MG In 0 60 / 60 60 / 60 .9 % Sodium Chloride 50 ML @ 30 mls/hr IVPB Q6HR PRN Rx#: [id number] Zosyn 3.375 GM In Dextrose 5% ( 50 / 50 50 / 50 ADD-[place]) 50 ML @ 12.5 mls/ hr IVPB Q8HR DAV Rx#:[id number] Potassium Chloride 20 mEq/100 200 / 200 mL 40 meq In 200 ml @ 100 mls/ hr IVPB Q1H PRN Rx#:[id number] Tube Feeding 150 / 150 332 / 332 Free Water 250 / 250 Free Water Intake Amount 0 / 0 500 / 500 Output: Catheter 275 / 275 225 / 225 Other: Stool Size Small Stool Consistency soft Stool Color Brown Weight 88.9 kg Blood Glucose* 228 207 Patient Weight 08/20/17 23:59 Weight 88.9 kg - General Appearance Exam: Patient is on the ventilator. He shows no signs of distress. Vital signs are stable. Lungs coarse breath sounds. Heart regular rate and rhythm. Abdomen is benign. He has pitting lower extremity edema. - Lab 08/20/17 04:45 08/20/17 04:45 Most recent lab results ABG pH 7.39 pH Units (7.32-7.45) 08/18/17 05:43 ABG pCO2 53 mmHg (35-45) H 08/18/17 05:43 ABG pO2 107 mmHg (85-104) H 08/18/17 05:43 ABG HCO3 32 mEq/L (21-27) H 08/18/17 05:43 ABG O2 Saturation 98 % (95-98) 08/18/17 05:43 Calcium 7.8 mg/dL (8.6-10.8) L 08/20/17 04:45 Phosphorus 3.6 mg/dL (2.3-4.7) 08/17/17 03:51 Magnesium 2.2 mg/dL (1.6-2.6) 08/20/17 04:45 Consult Discharge Plan - Plan Referrals: Poncho Noriega MD [Primary Care Provider] -
--- NOTE | 2017-08-20 08:47 | Palliative Progress Note ---
<Jean Pierre Brandon - Last Filed: 08/20/17 09:00> Date of Encounter: 08/20/17 Time of Encounter: 08:15 - Assessment and plan (1) Goals of care, counseling/discussion Current Visit: Yes Status: Acute Assessment and plan: Patient suffers from cardiac arrest; now with multiple rib fractures. -Patient has not tolerated CPAP trial well. -Currently DNR-CCA -Patient's family is expected to arrive later today. -We will discuss patient's wishes; trach and PEG. -Patient currently has diabetic foot ulcers with bilateral foot and lower leg dressings on. (2) Acute respiratory failure Current Visit: Yes Status: Acute Assessment and plan: Patient is currently intubated. -Patient has failed CPAP; developed apnea. -Current O2 saturation is 99. -Continue to monitor vital signs. Qualifiers: Respiratory failure complication: hypoxia Qualified Code(s): J96.01 - Acute respiratory failure with hypoxia (3) Nutrition impaired due to imbalance of nutrients Current Visit: Yes Status: Acute Assessment and plan: Patient's albumin and protein levels are low. -Dietary team is consulted. -Continue to monitor patient's labs. (4) Diabetic ulcer of both feet Current Visit: Yes Status: Chronic Assessment and plan: +2 pedal edema bilaterally. -Patient has diabetic foot ulcers with bilateral foot and lower leg dressings on. -Wound care is following. - Time Spent With Patient Total time spent is greater than 50% in coordination of care (as documented) at patient's floor/unit and/or counseling patient: - Subjective Interval history: Patient seen and examined at bedside this morning. Patient is intubated. Able to open eyes with verbal stimuli and follow simple commands (squeeze fingers). No acute distress. - Constitutional Vitals: Abnormal lab results WBC 11.4 K/mcL (4.3-11.1) H 08/20/17 04:45 RBC 2.82 M/mcL (4.19-5.50) L 08/20/17 04:45 Hgb 8.0 g/dL (12.9-16.9) L 08/20/17 04:45 Hct 26.0 % (37.5-50.1) L 08/20/17 04:45 MCHC 30.8 g/dL (31.6-35.5) L 08/20/17 04:45 RDW 17.5 % (11.5-14.5) H 08/20/17 04:45 Plt Count 83 K/mcL (140-400) L 08/20/17 04:45 MPV 13.2 fL (9.4-12.4) H 08/20/17 04:45 Neutrophils # 9.5 K/mcL (1.6-8.9) H 08/20/17 04:45 Nucleated RBCs/100 WBC 0.2 /100 WBC (0) H 08/19/17 03:02 Platelet Estimate Decreased (Normal) L 08/20/17 04:45 Immature Plt Fraction 14.1 % (1.1-6.1) H 08/20/17 04:45 PT 14.0 Seconds (9.4-12.1) H 08/20/17 04:45 APTT 58.0 Seconds (26.0-36.0) H 08/17/17 03:51 ABG pCO2 53 mmHg (35-45) H 08/18/17 05:43 ABG pO2 107 mmHg (85-104) H 08/18/17 05:43 ABG HCO3 32 mEq/L (21-27) H 08/18/17 05:43 ABG Total CO2 34 mEq/L (20-26) H 08/18/17 05:43 ABG Base Excess 6 mEq/L (-2 to 3) H 08/18/17 05:43 Sodium 146 mEq/L (136-145) H 08/20/17 04:45 Carbon Dioxide 30 mEq/L (19-29) H 08/20/17 04:45 BUN 65 mg/dL (8-26) H 08/20/17 04:45 Creatinine 2.80 mg/dL (0.72-1.25) H 08/20/17 04:45 Est GFR ( Amer) 27 (> 60) L 08/20/17 04:45 Est GFR (Non-Af Amer) 22 (> 60) L 08/20/17 04:45 Glucose 236 mg/dL (70-99) H 08/20/17 04:45 POC Glucose 251 (58-89) H 08/20/17 04:48 Hemoglobin A1c 7.4 % (-5.6) H 08/15/17 05:02 Calculated Osmolality 328 (280-300) H 08/20/17 04:45 Calcium 7.8 mg/dL (8.6-10.8) L 08/20/17 04:45 Ionized Calcium 1.09 mmol/L (1.15-1.35) L 08/20/17 04:45 Troponin I 1.08 ng/mL (0-0.03) H* 08/15/17 12:00 Serum Total Protein 4.9 g/dL (6.0-8.3) L 08/20/17 04:45 Albumin 2.1 g/dL (3.5-5.0) L 08/20/17 04:45 Albumin/Globulin Ratio 0.8 (1.1-2.2) L 08/20/17 04:45 Urine Clarity Turbid (Clear) A 08/14/17 20:57 Urine Protein >=300 mg/dL (Neg-Trace) H 08/14/17 20:57 Urine Ketones Trace mg/dL (Negative) H 08/14/17 20:57 Urine Blood Large (Negative) H 08/14/17 20:57 Ur Leukocyte Esterase Large (Negative) H 08/14/17 20:57 Urine Microscopic RBC TNTC per hpf (0-3) H 08/14/17 20:57 Urine Microscopic WBC TNTC per hpf (0-3) H 08/14/17 20:57 Urine Yeast Few per hpf (None Seen) H 08/14/17 20:57 Ur Culture Indicated? YES (NO) A 08/14/17 20:57 Vancomycin Trough 39.8 mcg/mL (10-20) H* 08/16/17 21:05 General appearance: Present: no acute distress Exam: Intubated, opens eyes to verbal stimuli, follows commands - Eye Additional comments: Reactive to light - Respiratory Additional comments: Clear to auscultation - GI/Abdominal GI/Abdominal exam: Present: soft - Extremities Exam Extremities exam: Present: pedal edema Additional comments: +2 pedal edema - Skin Additional comments: cool, dry Palliative Quality Palliative Quality: Screen for Code Status: Yes, Screen for Goals of Care: Yes, Screen for Pain: No, If Pain Regimen Started, Initiate Bowel Regimen: Yes, Screen for Nausea/Vomitting: No Code Status: 08/15/17 00:52 Resuscitation Status: Active [RES] Routine Comment: Resuscitation Status: Full Code 08/18/17 11:42 CODE [Resuscitation Status: Active] [RES] Routine Comment: Resuscitation Status: DNR-Comfort Care-Arrest - Labs CBC & Chem 7: 08/20/17 04:45 08/20/17 04:45 Labs: Laboratory Results - last 24 hr 08/19/17 08/19/17 08/19/17 11:22 18:25 18:45 WBC RBC Hgb Hct MCV MCH MCHC RDW Plt Count MPV Immature Gran % Seg Neutrophils % Lymphocytes % Monocytes % Eosinophils % Basophils % Neutrophils # Lymphocytes # Monocytes # Eosinophils # Basophils # Platelet Estimate Immature Plt Fraction PT INR Sodium 148 H Potassium Chloride Carbon Dioxide BUN Creatinine Est GFR ( Amer) Est GFR (Non-Af Amer) BUN/Creatinine Ratio Glucose POC Glucose 139 H 228 H Calculated Osmolality Calcium Ionized Calcium Magnesium Total Bilirubin Direct Bilirubin Indirect Bilirubin AST ALT Alkaline Phosphatase Serum Total Protein Albumin Globulin Albumin/Globulin Ratio 08/19/17 08/20/17 08/20/17 22:30 00:01 04:45 WBC 11.4 H RBC 2.82 L Hgb 8.0 L Hct 26.0 L MCV 92.2 MCH 28.4 MCHC 30.8 L RDW 17.5 H Plt Count 83 L MPV 13.2 H Immature Gran % 0.6 Seg Neutrophils % 83.4 Lymphocytes % 6.1 Monocytes % 8.3 Eosinophils % 1.3 Basophils % 0.3 Neutrophils # 9.5 H Lymphocytes # 0.7 Monocytes # 1.0 Eosinophils # 0.2 Basophils # 0.0 Platelet Estimate Decreased L Immature Plt Fraction 14.1 H PT INR Sodium Potassium Chloride Carbon Dioxide BUN Creatinine Est GFR ( Amer) Est GFR (Non-Af Amer) BUN/Creatinine Ratio Glucose POC Glucose 207 H Calculated Osmolality Calcium Ionized Calcium 1.08 L Magnesium Total Bilirubin Direct Bilirubin Indirect Bilirubin AST ALT Alkaline Phosphatase Serum Total Protein Albumin Globulin Albumin/Globulin Ratio 08/20/17 08/20/17 08/20/17 04:45 04:45 04:45 WBC RBC Hgb Hct MCV MCH MCHC RDW Plt Count MPV Immature Gran % Seg Neutrophils % Lymphocytes % Monocytes % Eosinophils % Basophils % Neutrophils # Lymphocytes # Monocytes # Eosinophils # Basophils # Platelet Estimate Immature Plt Fraction PT 14.0 H INR 1.3 Sodium 146 H Potassium 3.7 Chloride 107 Carbon Dioxide 30 H BUN 65 H Creatinine 2.80 H Est GFR ( Amer) 27 L Est GFR (Non-Af Amer) 22 L BUN/Creatinine Ratio 23 Glucose 236 H POC Glucose Calculated Osmolality 328 H Calcium 7.8 L Ionized Calcium 1.09 L Magnesium 2.2 Total Bilirubin 0.7 Direct Bilirubin 0.4 Indirect Bilirubin 0.3 AST 26 ALT 24 Alkaline Phosphatase 95 Serum Total Protein 4.9 L Albumin 2.1 L Globulin 2.8 Albumin/Globulin Ratio 0.8 L 08/20/17 04:48 WBC RBC Hgb Hct MCV MCH MCHC RDW Plt Count MPV Immature Gran % Seg Neutrophils % Lymphocytes % Monocytes % Eosinophils % Basophils % Neutrophils # Lymphocytes # Monocytes # Eosinophils # Basophils # Platelet Estimate Immature Plt Fraction PT INR Sodium Potassium Chloride Carbon Dioxide BUN Creatinine Est GFR ( Amer) Est GFR (Non-Af Amer) BUN/Creatinine Ratio Glucose POC Glucose 251 H Calculated Osmolality Calcium Ionized Calcium Magnesium Total Bilirubin Direct Bilirubin Indirect Bilirubin AST ALT Alkaline Phosphatase Serum Total Protein Albumin Globulin Albumin/Globulin Ratio - Impressions Impressions Head CT 08/19/17 16:00 IMPRESSION: No acute intracranial abnormality. Generalized cerebral atrophy. Chronic small vessel white matter ischemic changes. 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 D/ / Shahzad Vigil MD / Shahzad Vigil MD Interpreting Provider: Shahzad Vigil MD - ABG Interpretation ABG results: ABG ABG pH 7.39 pH Units (7.32-7.45) 08/18/17 05:43 ABG pCO2 53 mmHg (35-45) H 08/18/17 05:43 ABG pO2 107 mmHg (85-104) H 08/18/17 05:43 ABG O2 Saturation 98 % (95-98) 08/18/17 05:43 PT/INR, D-dimer PT 14.0 Seconds (9.4-12.1) H 08/20/17 04:45 Consult Discharge Plan - Plan Referrals: Poncho Noriega MD [Primary Care Provider] - <Juwan Hennessy - Last Filed: 08/20/17 11:16> Date of Encounter: 08/20/17 - Time Spent With Patient Total time spent is greater than 50% in coordination of care (as documented) at patient's floor/unit and/or counseling patient: - Constitutional Vitals: Abnormal lab results WBC 11.4 K/mcL (4.3-11.1) H 08/20/17 04:45 RBC 2.82 M/mcL (4.19-5.50) L 08/20/17 04:45 Hgb 8.0 g/dL (12.9-16.9) L 08/20/17 04:45 Hct 26.0 % (37.5-50.1) L 08/20/17 04:45 MCHC 30.8 g/dL (31.6-35.5) L 08/20/17 04:45 RDW 17.5 % (11.5-14.5) H 08/20/17 04:45 Plt Count 83 K/mcL (140-400) L 08/20/17 04:45 MPV 13.2 fL (9.4-12.4) H 08/20/17 04:45 Neutrophils # 9.5 K/mcL (1.6-8.9) H 08/20/17 04:45 Nucleated RBCs/100 WBC 0.2 /100 WBC (0) H 08/19/17 03:02 Platelet Estimate Decreased (Normal) L 08/20/17 04:45 Immature Plt Fraction 14.1 % (1.1-6.1) H 08/20/17 04:45 PT 14.0 Seconds (9.4-12.1) H 08/20/17 04:45 APTT 58.0 Seconds (26.0-36.0) H 08/17/17 03:51 ABG pCO2 53 mmHg (35-45) H 08/18/17 05:43 ABG pO2 107 mmHg (85-104) H 08/18/17 05:43 ABG HCO3 32 mEq/L (21-27) H 08/18/17 05:43 ABG Total CO2 34 mEq/L (20-26) H 08/18/17 05:43 ABG Base Excess 6 mEq/L (-2 to 3) H 08/18/17 05:43 Sodium 146 mEq/L (136-145) H 08/20/17 04:45 Carbon Dioxide 30 mEq/L (19-29) H 08/20/17 04:45 BUN 65 mg/dL (8-26) H 08/20/17 04:45 Creatinine 2.80 mg/dL (0.72-1.25) H 08/20/17 04:45 Est GFR ( Amer) 27 (> 60) L 08/20/17 04:45 Est GFR (Non-Af Amer) 22 (> 60) L 08/20/17 04:45 Glucose 236 mg/dL (70-99) H 08/20/17 04:45 POC Glucose 251 (58-89) H 08/20/17 04:48 Hemoglobin A1c 7.4 % (-5.6) H 08/15/17 05:02 Calculated Osmolality 328 (280-300) H 08/20/17 04:45 Calcium 7.8 mg/dL (8.6-10.8) L 08/20/17 04:45 Ionized Calcium 1.09 mmol/L (1.15-1.35) L 08/20/17 04:45 Troponin I 1.08 ng/mL (0-0.03) H* 08/15/17 12:00 Serum Total Protein 4.9 g/dL (6.0-8.3) L 08/20/17 04:45 Albumin 2.1 g/dL (3.5-5.0) L 08/20/17 04:45 Albumin/Globulin Ratio 0.8 (1.1-2.2) L 08/20/17 04:45 Urine Clarity Turbid (Clear) A 08/14/17 20:57 Urine Protein >=300 mg/dL (Neg-Trace) H 08/14/17 20:57 Urine Ketones Trace mg/dL (Negative) H 08/14/17 20:57 Urine Blood Large (Negative) H 08/14/17 20:57 Ur Leukocyte Esterase Large (Negative) H 08/14/17 20:57 Urine Microscopic RBC TNTC per hpf (0-3) H 08/14/17 20:57 Urine Microscopic WBC TNTC per hpf (0-3) H 08/14/17 20:57 Urine Yeast Few per hpf (None Seen) H 08/14/17 20:57 Ur Culture Indicated? YES (NO) A 08/14/17 20:57 Vancomycin Trough 39.8 mcg/mL (10-20) H* 08/16/17 21:05 - Attending Attestation I examined this patient and my medical decision-making was reviewed with the Resident Physician. I agree with the documented findings, disposition and treatment plan as described except to the extent set forth below. Palliative Quality Code Status: 08/15/17 00:52 Resuscitation Status: Active [RES] Routine Comment: Resuscitation Status: Full Code 08/18/17 11:42 CODE [Resuscitation Status: Active] [RES] Routine Comment: Resuscitation Status: DNR-Comfort Care-Arrest - Labs CBC & Chem 7: 08/20/17 04:45 08/20/17 04:45 Labs: Laboratory Results - last 24 hr 08/19/17 08/19/17 08/19/17 11:22 18:25 18:45 WBC RBC Hgb Hct MCV MCH MCHC RDW Plt Count MPV Immature Gran % Seg Neutrophils % Lymphocytes % Monocytes % Eosinophils % Basophils % Neutrophils # Lymphocytes # Monocytes # Eosinophils # Basophils # Platelet Estimate Immature Plt Fraction PT INR Sodium 148 H Potassium Chloride Carbon Dioxide BUN Creatinine Est GFR ( Amer) Est GFR (Non-Af Amer) BUN/Creatinine Ratio Glucose POC Glucose 139 H 228 H Calculated Osmolality Calcium Ionized Calcium Magnesium Total Bilirubin Direct Bilirubin Indirect Bilirubin AST ALT Alkaline Phosphatase Serum Total Protein Albumin Globulin Albumin/Globulin Ratio 08/19/17 08/20/17 08/20/17 22:30 00:01 04:45 WBC 11.4 H RBC 2.82 L Hgb 8.0 L Hct 26.0 L MCV 92.2 MCH 28.4 MCHC 30.8 L RDW 17.5 H Plt Count 83 L MPV 13.2 H Immature Gran % 0.6 Seg Neutrophils % 83.4 Lymphocytes % 6.1 Monocytes % 8.3 Eosinophils % 1.3 Basophils % 0.3 Neutrophils # 9.5 H Lymphocytes # 0.7 Monocytes # 1.0 Eosinophils # 0.2 Basophils # 0.0 Platelet Estimate Decreased L Immature Plt Fraction 14.1 H PT INR Sodium Potassium Chloride Carbon Dioxide BUN Creatinine Est GFR ( Amer) Est GFR (Non-Af Amer) BUN/Creatinine Ratio Glucose POC Glucose 207 H Calculated Osmolality Calcium Ionized Calcium 1.08 L Magnesium Total Bilirubin Direct Bilirubin Indirect Bilirubin AST ALT Alkaline Phosphatase Serum Total Protein Albumin Globulin Albumin/Globulin Ratio 08/20/17 08/20/17 08/20/17 04:45 04:45 04:45 WBC RBC Hgb Hct MCV MCH MCHC RDW Plt Count MPV Immature Gran % Seg Neutrophils % Lymphocytes % Monocytes % Eosinophils % Basophils % Neutrophils # Lymphocytes # Monocytes # Eosinophils # Basophils # Platelet Estimate Immature Plt Fraction PT 14.0 H INR 1.3 Sodium 146 H Potassium 3.7 Chloride 107 Carbon Dioxide 30 H BUN 65 H Creatinine 2.80 H Est GFR ( Amer) 27 L Est GFR (Non-Af Amer) 22 L BUN/Creatinine Ratio 23 Glucose 236 H POC Glucose Calculated Osmolality 328 H Calcium 7.8 L Ionized Calcium 1.09 L Magnesium 2.2 Total Bilirubin 0.7 Direct Bilirubin 0.4 Indirect Bilirubin 0.3 AST 26 ALT 24 Alkaline Phosphatase 95 Serum Total Protein 4.9 L Albumin 2.1 L Globulin 2.8 Albumin/Globulin Ratio 0.8 L 08/20/17 04:48 WBC RBC Hgb Hct MCV MCH MCHC RDW Plt Count MPV Immature Gran % Seg Neutrophils % Lymphocytes % Monocytes % Eosinophils % Basophils % Neutrophils # Lymphocytes # Monocytes # Eosinophils # Basophils # Platelet Estimate Immature Plt Fraction PT INR Sodium Potassium Chloride Carbon Dioxide BUN Creatinine Est GFR ( Amer) Est GFR (Non-Af Amer) BUN/Creatinine Ratio Glucose POC Glucose 251 H Calculated Osmolality Calcium Ionized Calcium Magnesium Total Bilirubin Direct Bilirubin Indirect Bilirubin AST ALT Alkaline Phosphatase Serum Total Protein Albumin Globulin Albumin/Globulin Ratio - Impressions Impressions Head CT 08/19/17 16:00
[2017-08-20] MEDS: Aspirin 81 MG TAB.CHEW PO SCH (09:22)
[2017-08-20] MEDS: Chlorhexidine Rinse 15 ML MOUTHWASH MM SCH ×2 (09:22→20:44)
[2017-08-20] MEDS: Pantoprazole 40 MG VIAL IVP SCH (09:23)
[2017-08-20] MEDS: Sennosides/Docusate Sodium TABLET PO SCH ×2 (09:23→20:47)
--- NOTE | 2017-08-20 09:29 | Pulmonology Progress Note ---
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 insulin use: without group home use Qualified Code( s): E11.621 - Type 2 diabetes mellitus with foot ulcer; L97.509 - Non-pressure chronic ulcer of other part of unspecified foot with unspecified severity; L97.509 - Non-pressure chronic ulcer of other part of unspecified foot with unspecified severity; L97.509 - Non-pressure chronic ulcer of other part of unspecified foot with unspecified severity; L97.509 - Non-pressure chronic ulcer of other part of unspecified foot with unspecified severity (4) DVT prophylaxis Current Visit: No Status: Acute (5) CAD (coronary artery disease) Current Visit: No Status: Chronic Qualifiers: Coronary Disease-Associated Artery/Lesion type: [place] artery [place] vs. transplanted heart: squaxin heart Associated angina: without angina Qualified Code(s): I25.10 - Atherosclerotic heart disease of [place] coronary artery without angina pectoris (6) Acute respiratory failure Current Visit: Yes Status: Acute Qualifiers: Respiratory failure complication: hypoxia Qualified Code(s): J96.01 - Acute respiratory failure with hypoxia (7) Septic shock Current Visit: Yes Status: Acute (8) Goals of care, counseling/discussion Current Visit: Yes Status: Acute (9) Encephalopathy Current Visit: Yes Status: Acute (10) Seizure Current Visit: Yes Status: Acute Objective PUL Vital signs: Last Vital Signs Temp 96.8 F L 08/20/17 11:00 Pulse 56 08/20/17 11:00 Resp 12 08/20/17 11:01 BP 134/69 08/20/17 11:00 Pulse Ox 98 08/20/17 11:01 Ventilator Settings Ventilator Settings: Ventilator Settings, Last 8 Hours Ventilator Mode VC+ Ventilator Mode VC+ Ventilator Mode VC+ Ventilator Mode VC+ Ventilator Mode VC+ Ventilator Tidal Volume 500 Setting Ventilator Tidal Volume 500 Setting Ventilator Tidal Volume 500 Setting Ventilator Tidal Volume 500 Setting Ventilator Tidal Volume 500 Setting Ventilator Respiratory Rate 12 Setting Ventilator Respiratory Rate 12 Setting Ventilator Respiratory Rate 12 Setting Ventilator Respiratory Rate 12 Setting Ventilator Respiratory Rate 12 Setting Ventilator Respiratory Rate 12 Setting Actual Respiratory Rate 12 Actual Respiratory Rate 16 Actual Respiratory Rate 12 Actual Respiratory Rate 12 Actual Respiratory Rate 14 Actual Respiratory Rate 12 Actual Respiratory Rate 12 Actual Respiratory Rate 12 Actual Respiratory Rate 12 Positive End Expiratory 5 Pressure Positive End Expiratory 5 Pressure Positive End Expiratory 5 Pressure Positive End Expiratory 5 Pressure Positive End Expiratory 5 Pressure Positive End Expiratory 5 Pressure Positive End Expiratory 5 Pressure Positive End Expiratory 5 Pressure Positive End Expiratory 5 Pressure Positive End Expiratory 5 Pressure Peak Inspiratory Airway 29 Pressure Peak Inspiratory Airway 29 Pressure Peak Inspiratory Airway 24 Pressure Peak Inspiratory Airway 30 Pressure Peak Inspiratory Airway 26 Pressure Peak Inspiratory Airway 30 Pressure Results - Laboratory Findings CBC and BMP: 08/20/17 04:45 08/20/17 11:50 ABG ABG pH 7.39 pH Units (7.32-7.45) 08/18/17 05:43 ABG pCO2 53 mmHg (35-45) H 08/18/17 05:43 ABG pO2 107 mmHg (85-104) H 08/18/17 05:43 ABG O2 Saturation 98 % (95-98) 08/18/17 05:43 PT/INR, D-dimer PT 14.0 Seconds (9.4-12.1) H 08/20/17 04:45 Abnormal lab findings: Abnormal lab results WBC 11.4 K/mcL (4.3-11.1) H 08/20/17 04:45 RBC 2.82 M/mcL (4.19-5.50) L 08/20/17 04:45 Hgb 8.0 g/dL (12.9-16.9) L 08/20/17 04:45 Hct 26.0 % (37.5-50.1) L 08/20/17 04:45 MCHC 30.8 g/dL (31.6-35.5) L 08/20/17 04:45 RDW 17.5 % (11.5-14.5) H 08/20/17 04:45 Plt Count 83 K/mcL (140-400) L 08/20/17 04:45 MPV 13.2 fL (9.4-12.4) H 08/20/17 04:45 Neutrophils # 9.5 K/mcL (1.6-8.9) H 08/20/17 04:45 Nucleated RBCs/100 WBC 0.2 /100 WBC (0) H 08/19/17 03:02 Platelet Estimate Decreased (Normal) L 08/20/17 04:45 Immature Plt Fraction 14.1 % (1.1-6.1) H 08/20/17 04:45 PT 14.0 Seconds (9.4-12.1) H 08/20/17 04:45 APTT 58.0 Seconds (26.0-36.0) H 08/17/17 03:51 ABG pCO2 53 mmHg (35-45) H 08/18/17 05:43 ABG pO2 107 mmHg (85-104) H 08/18/17 05:43 ABG HCO3 32 mEq/L (21-27) H 08/18/17 05:43 ABG Total CO2 34 mEq/L (20-26) H 08/18/17 05:43 ABG Base Excess 6 mEq/L (-2 to 3) H 08/18/17 05:43 Sodium 146 mEq/L (136-145) H 08/20/17 04:45 Carbon Dioxide 30 mEq/L (19-29) H 08/20/17 04:45 BUN 65 mg/dL (8-26) H 08/20/17 04:45 Creatinine 2.80 mg/dL (0.72-1.25) H 08/20/17 04:45 Est GFR ( Amer) 27 (> 60) L 08/20/17 04:45 Est GFR (Non-Af Amer) 22 (> 60) L 08/20/17 04:45 Glucose 236 mg/dL (70-99) H 08/20/17 04:45 POC Glucose 223 (58-89) H 08/20/17 11:43 Hemoglobin A1c 7.4 % (-5.6) H 08/15/17 05:02 Calculated Osmolality 328 (280-300) H 08/20/17 04:45 Calcium 7.8 mg/dL (8.6-10.8) L 08/20/17 04:45 Ionized Calcium 1.08 mmol/L (1.15-1.35) L 08/20/17 11:50 Troponin I 1.08 ng/mL (0-0.03) H* 08/15/17 12:00 Serum Total Protein 4.9 g/dL (6.0-8.3) L 08/20/17 04:45 Albumin 2.1 g/dL (3.5-5.0) L 08/20/17 04:45 Albumin/Globulin Ratio 0.8 (1.1-2.2) L 08/20/17 04:45 Urine Clarity Turbid (Clear) A 08/14/17 20:57 Urine Protein >=300 mg/dL (Neg-Trace) H 08/14/17 20:57 Urine Ketones Trace mg/dL (Negative) H 08/14/17 20:57 Urine Blood Large (Negative) H 08/14/17 20:57 Ur Leukocyte Esterase Large (Negative) H 08/14/17 20:57 Urine Microscopic RBC TNTC per hpf (0-3) H 08/14/17 20:57 Urine Microscopic WBC TNTC per hpf (0-3) H 08/14/17 20:57 Urine Yeast Few per hpf (None Seen) H 08/14/17 20:57 Ur Culture Indicated? YES (NO) A 08/14/17 20:57 Vancomycin Trough 39.8 mcg/mL (10-20) H* 08/16/17 21:05 - Microbiology Findings Microbiology Findings: Microbiology, Last 48 Hours 08/15/17 01:15 Blood Culture - Final Peripheral Venipuncture No growth. 08/14/17 22:34 Blood Culture - Final Peripheral Venipuncture No growth. 08/17/17 03:51 Sputum Culture - Final Sputum - Clinical Findings Intake & Output: Intake & Output 08/19/17 08/20/17 08/20/17 23:59 07:59 15:59 Intake Total 1260 / 1260 1492 / 1492 250 / 250 Output Total 275 / 275 225 / 225 275 / 275 Balance 985 / 985 1267 / 1267 -25 / -25 Weight 88.9 kg Consult Discharge Plan - Plan Referrals: Poncho Noriega MD [Primary Care Provider] - - Attending Attestation I examined this patient and my medical decision-making was reviewed with the Resident Physician. I agree with the documented findings, disposition and treatment plan as described except to the extent set forth below. We independently had [id number] contact with the patient Patient seen and examined at bedside Labs, radiology, chart personally reviewed. Management was reviewed during multidisciplinary critical care rounds. 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 Failed CPAP after 20 minutes more awake today I suspect his mental status continues to improve and pain is more controlled he has a better chance of being liberated from the ventilator Cards: Status post cardiac arrest with vasodilatory shock now resolved persistent bradycardia but BP is within normal limits continue to monitor on telemetry history of CAD with troponin elevation (NSTEMI ) possibly related to ACLS cardiology following continue beta bro and aspirin and statin FEN-GI: Continue enteral nutrition continue PPI nutrition following appreciate react Renal: Acute on chronic kidney injury multifactorial improving loop diuretic today advance free water for hypernatremia stop D5 nephrology consulted appreciate recommendations ID: Treating for possible aspiration pneumonia along with lower extremity diabetic ulcers. Will likely need ID consult for optimization of long-term antimicrobials Heme/Onc: DVT prophylaxis given Endo: Glucose Monitored Integ/MSK: Skin Care per routine ICU Nursing Protocol to prevent ulcers. Lines: All lines examined without evidence of infection : Dispo: Remains in ICU CODE: DNA our family meeting today palliative care following overall prognosis poor we will discuss goals of care and meeting today with patient and son and brother. <Yohana Ocasio - Last Filed: 08/20/17 13:52> Date of Encounter: 08/20/17 Time of Encounter: 08:35 Assessment and Plan (1) Cardiac arrest Current Visit: Yes Status: Acute -per cadiology evaluation, even may be reflection of acute coronary syndrome -continuing medical management, no invasive intervention at this time -continue ASA, statin -BB being held 2/2 low heart rate -continue to monitor on tele (2) Septic shock Current Visit: Yes Status: Acute -concern for aspiration PNA, complicated by b/l diabetic foot ulcers treated on abx -continuing vancomycin (pharm to dose d/t renal function) and zosyn (3) Acute respiratory failure Current Visit: Yes Status: Acute -remains on mechanical ventilation at this point -improved time on CPAP today, 20 minutes before failed on CPAP -anticipating family meeting today to discuss goals of care (re: possible trach , PEG) and expectations moving forward Qualifiers: Respiratory failure complication: hypoxia Qualified Code(s): J96.01 - Acute respiratory failure with hypoxia (4) Acute kidney injury Current Visit: Yes Status: Acute -multiple factors including cardiac arrest, septic shock, vancomycin toxicity -slight improvement in creatinine, 2.8 today vs 2.95 yesterday -continuing free water for treatment of hypernatremia -Lasix 40 mg IVP given for volume overload (LE edema) and to increase urine output -d/c D5 iv fluids -nephrology consulted, recommendations appreciated (5) Diabetic ulcer of both feet Current Visit: Yes Status: Chronic -continue IV abx (with pharmacy to dose Vancomycin) -wound care following (6) CAD (coronary artery disease) Current Visit: No Status: Chronic -h/o elevated troponin this visit, possibly from NSTEMI -continue statin, ASA -continue tele monitoring Qualifiers: Coronary Disease-Associated Artery/Lesion type: [place] artery [place] vs. transplanted heart: [place] heart Associated angina: without angina Qualified Code(s): I25.10 - Atherosclerotic heart disease of [place] coronary artery without angina pectoris (7) Diabetes Current Visit: Yes Status: Chronic -SSI (Lispro) for glycemic control -continue to monitor with fingersticks and serum glucose, adjust as needed 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 mellitus termite exterminator helper insulin use: without group home use Qualified Code( s): E11.621 - Type 2 diabetes mellitus with foot ulcer; L97.509 - Non-pressure chronic ulcer of other part of unspecified foot with unspecified severity; L97.509 - Non-pressure chronic ulcer of other part of unspecified foot with unspecified severity; L97.509 - Non-pressure chronic ulcer of other part of unspecified foot with unspecified severity; L97.509 - Non-pressure chronic ulcer of other part of unspecified foot with unspecified severity (8) Encephalopathy Current Visit: Yes Status: Acute -head CT stable, no acute intracranial abnormalities -mental status continues to improve, more alert today (9) DVT prophylaxis Current Visit: No Status: Acute -Heparin 5000 units SQ Q8H Subjective Principal diagnosis: Cardiac Arrest Interval history: Seen and examined at bedside this morning. Remains on mechanical ventilation. Patient able to follow commands and can answer yes/no questions by squeezing my hand. When asked to squeeze my hand if he was having abdominal pain, he indicated yes. Objective PUL Vital signs: Last Vital Signs Temp 96.8 F L 08/20/17 08:33 Pulse 54 08/20/17 08:00 Resp 12 08/20/17 08:00 BP 127/69 08/20/17 08:00 Pulse Ox 99 08/20/17 08:00 General appearance: no acute distress Eyes: nonicteric Neck: supple Effort: normal (mechanical ventilation) Auscultation: bilateral: clear Cardiovascular: other (regular rhythm, pulse in 50's) Gastrointestinal: absent bowel sounds, tender, non-distended Extremities: no cyanosis, anasarca non-focal exam, pupils equal and round Ventilator Settings Ventilator Settings: Ventilator Settings, Last 8 Hours Ventilator Mode VC+ Ventilator Mode VC+ Ventilator Mode VC+ Ventilator Mode A/C Ventilator Mode VC+ Ventilator Mode A/C Ventilator Tidal Volume 500 Setting Ventilator Tidal Volume 500 Setting Ventilator Tidal Volume 500 Setting Ventilator Tidal Volume 500 Setting Ventilator Tidal Volume 500 Setting Ventilator Tidal Volume 500 Setting Ventilator Respiratory Rate 12 Setting Ventilator Respiratory Rate 12 Setting Ventilator Respiratory Rate 12 Setting Ventilator Respiratory Rate 12 Setting Ventilator Respiratory Rate 12 Setting Ventilator Respiratory Rate 12 Setting Actual Respiratory Rate 12 Actual Respiratory Rate 12 Actual Respiratory Rate 12 Actual Respiratory Rate 12 Actual Respiratory Rate 14 Positive End Expiratory 5 Pressure Positive End Expiratory 5 Pressure Positive End Expiratory 5 Pressure Positive End Expiratory 5 Pressure Positive End Expiratory 5 Pressure Positive End Expiratory 5 Pressure Positive End Expiratory 5 Pressure Positive End Expiratory 5 Pressure Peak Inspiratory Airway 30 Pressure Peak Inspiratory Airway 26 Pressure Peak Inspiratory Airway 30 Pressure Peak Inspiratory Airway 27 Pressure Peak Inspiratory Airway 28 Pressure Peak Inspiratory Airway 27 Pressure Results - Laboratory Findings CBC and BMP: 08/20/17 04:45 08/20/17 11:50 ABG ABG pH 7.39 pH Units (7.32-7.45) 08/18/17 05:43 ABG pCO2 53 mmHg (35-45) H 08/18/17 05:43 ABG pO2 107 mmHg (85-104) H 08/18/17 05:43 ABG O2 Saturation 98 % (95-98) 08/18/17 05:43 PT/INR, D-dimer PT 14.0 Seconds (9.4-12.1) H 08/20/17 04:45 Abnormal lab findings: Abnormal lab results WBC 11.4 K/mcL (4.3-11.1) H 08/20/17 04:45 RBC 2.82 M/mcL (4.19-5.50) L 08/20/17 04:45 Hgb 8.0 g/dL (12.9-16.9) L 08/20/17 04:45 Hct 26.0 % (37.5-50.1) L 08/20/17 04:45 MCHC 30.8 g/dL (31.6-35.5) L 08/20/17 04:45 RDW 17.5 % (11.5-14.5) H 08/20/17 04:45 Plt Count 83 K/mcL (140-400) L 08/20/17 04:45 MPV 13.2 fL (9.4-12.4) H 08/20/17 04:45 Neutrophils # 9.5 K/mcL (1.6-8.9) H 08/20/17 04:45 Nucleated RBCs/100 WBC 0.2 /100 WBC (0) H 08/19/17 03:02 Platelet Estimate Decreased (Normal) L 08/20/17 04:45 Immature Plt Fraction 14.1 % (1.1-6.1) H 08/20/17 04:45 PT 14.0 Seconds (9.4-12.1) H 08/20/17 04:45 APTT 58.0 Seconds (26.0-36.0) H 08/17/17 03:51 ABG pCO2 53 mmHg (35-45) H 08/18/17 05:43 ABG pO2 107 mmHg (85-104) H 08/18/17 05:43 ABG HCO3 32 mEq/L (21-27) H 08/18/17 05:43 ABG Total CO2 34 mEq/L (20-26) H 08/18/17 05:43 ABG Base Excess 6 mEq/L (-2 to 3) H 08/18/17 05:43 Sodium 146 mEq/L (136-145) H 08/20/17 04:45 Carbon Dioxide 30 mEq/L (19-29) H 08/20/17 04:45 BUN 65 mg/dL (8-26) H 08/20/17 04:45 Creatinine 2.80 mg/dL (0.72-1.25) H 08/20/17 04:45 Est GFR ( Amer) 27 (> 60) L 08/20/17 04:45 Est GFR (Non-Af Amer) 22 (> 60) L 08/20/17 04:45 Glucose 236 mg/dL (70-99) H 08/20/17 04:45 POC Glucose 251 (58-89) H 08/20/17 04:48 Hemoglobin A1c 7.4 % (-5.6) H 08/15/17 05:02 Calculated Osmolality 328 (280-300) H 08/20/17 04:45 Calcium 7.8 mg/dL (8.6-10.8) L 08/20/17 04:45 Ionized Calcium 1.09 mmol/L (1.15-1.35) L 08/20/17 04:45 Troponin I 1.08 ng/mL (0-0.03) H* 08/15/17 12:00 Serum Total Protein 4.9 g/dL (6.0-8.3) L 08/20/17 04:45 Albumin 2.1 g/dL (3.5-5.0) L 08/20/17 04:45 Albumin/Globulin Ratio 0.8 (1.1-2.2) L 08/20/17 04:45 Urine Clarity Turbid (Clear) A 08/14/17 20:57 Urine Protein >=300 mg/dL (Neg-Trace) H 08/14/17 20:57 Urine Ketones Trace mg/dL (Negative) H 08/14/17 20:57 Urine Blood Large (Negative) H 08/14/17 20:57 Ur Leukocyte Esterase Large (Negative) H 08/14/17 20:57 Urine Microscopic RBC TNTC per hpf (0-3) H 08/14/17 20:57 Urine Microscopic WBC TNTC per hpf (0-3) H 08/14/17 20:57 Urine Yeast Few per hpf (None Seen) H 08/14/17 20:57 Ur Culture Indicated? YES (NO) A 08/14/17 20:57 Vancomycin Trough 39.8 mcg/mL (10-20) H* 08/16/17 21:05 - Microbiology Findings Microbiology Findings: Microbiology, Last 48 Hours 08/15/17 01:15 Blood Culture - Final Peripheral Venipuncture No growth. 08/14/17 22:34 Blood Culture - Final Peripheral Venipuncture No growth. 08/17/17 03:51 Sputum Culture - Final Sputum - Clinical Findings Intake & Output: Intake & Output 08/19/17 08/20/17 08/20/17 23:59 07:59 15:59 Intake Total 1260 / 1260 1492 / 1492 Output Total 275 / 275 225 / 225 75 / 75 Balance 985 / 985 1267 / 1267 -75 / -75 Weight 88.9 kg
[2017-08-20] MEDS: Budesonide/Formoterol 160/4.5 MDI IH SCH ×2 (11:00→21:56)
[2017-08-20 12:16] LABS: Ionized Calcium 1.08 mmol/L (1.15-1.35); Potassium 4.1 mEq/L (3.5-4.5)
[2017-08-21] MEDS: Lacri-Lube 3.5 GM TUBE BOTH EYES SCH ×5 (04:00→20:01)
[2017-08-21] MEDS: FentaNYL (PF) 1,000 MCG in 0.9 % Sodium Chloride 80 ML IVC SCH ×2 (05:01→16:37)
[2017-08-21 05:26] LABS: Basophils % 0.2 %; Eosinophils # 0.1 K/mcL (0.0-0.6); Hematocrit 26.1 % (37.5-50.1); Hemoglobin 8.3 g/dL (12.9-16.9); Immature Granulocytes % 0.6 % (0-4); Lymphocytes # 0.6 K/mcL (0.6-4.6); Lymphocytes % 4.5 %; Mean Corpuscular HGB Conc 31.8 g/dL (31.6-35.5); Mean Corpuscular Hemoglobin 28.9 pg (28.0-33.3); Mean Corpuscular Volume 90.9 fL (83.0-100.0); Mean Platelet Volume 13.3 fL (9.4-12.4); Monocytes # 1.2 K/mcL (0.0-1.3); Monocytes % 8.8 %; Neutrophils # 11.1 K/mcL (1.6-8.9); Platelet Count 79 K/mcL (140-400); Red Blood Count 2.87 M/mcL (4.19-5.50); Red Cell Distribution Width 17.2 % (11.5-14.5); Segmented Neutrophils % 84.9 %
[2017-08-21 05:30] LABS: Ionized Calcium 1.08 mmol/L (1.15-1.35)
[2017-08-21 05:37] LABS: Phosphorous 3.2 mg/dL (2.3-4.7); Potassium 3.9 mEq/L (3.5-4.5)
[2017-08-21] MEDS: *HR* Heparin 5,000 UNIT/ML VIAL SQ SCH ×3 (05:47→20:04)
[2017-08-21] MEDS: Potassium Chloride 40 MEQ/200 ML BAG IVPB PRN (05:51)
[2017-08-21] MEDS: Insulin LISPRO 300 UNITS/3 ML VIAL SQ SCH ×4 (05:59→20:10)
[2017-08-21] MEDS: Piperacillin/Tazobactam 3.375 GM in D5% in Water 50 ML IVPB SCH ×2 (08:34→15:36)
--- NOTE | 2017-08-21 08:40 | Nephrology Progress Note ---
Date of Encounter: 08/21/17 Time of Encounter: 08:39 - Assessment and Plan (1) Acute kidney injury Current Visit: Yes Status: Acute The patient has acute kidney injury in the setting of a cardiac arrest that occurred in the extended care facility. His creatinine is at a plateau. Urine output is slowly increasing. Hypernatremia is improved. There is no acute indication for dialysis. We will continue to follow the patient. (2) Diabetic ulcer of both feet Current Visit: Yes Status: Chronic (3) Atherosclerosis of [place] arteries of right leg with ulceration of other part of foot Current Visit: No Status: Chronic (4) Atherosclerosis of [place] arteries of left leg with ulceration of other part of foot Current Visit: No Status: Chronic Subjective Principal diagnosis: Cardiac Arrest Interval history: The patient remains critically ill on the ventilator. Serum creatinine has improved slightly down to 2.75 from 2.80. Sodium has improved down to 143. Urine output is 875 mL. Patient is now receiving tube feedings. He is hemodynamically stable. Objective - Vital Signs Vital signs: Vital Signs Temp Pulse Resp BP Pulse Ox 08/21/17 08:04 12 159/70 99 08/21/17 07:36 97.7 F 08/21/17 06:00 82 12 163/72 98 08/21/17 05:42 11 167/79 97 08/21/17 05:00 70 12 167/79 99 08/21/17 04:00 61 13 131/61 100 08/21/17 03:44 97.3 F L 08/21/17 03:10 14 135/65 99 08/21/17 03:00 61 12 135/65 99 08/21/17 02:00 63 13 131/61 99 08/21/17 01:29 12 126/71 99 08/21/17 01:00 61 12 126/71 99 08/21/17 00:00 96.9 F L 54 12 118/60 99 08/20/17 23:43 12 111/55 98 08/20/17 23:00 52 12 108/57 98 08/20/17 22:00 59 12 141/81 97 08/20/17 21:57 12 129/69 98 08/20/17 21:00 54 14 122/65 100 08/20/17 20:15 14 144/79 100 08/20/17 20:10 96.8 F L 08/20/17 20:00 55 13 144/79 100 08/20/17 19:00 58 14 136/75 99 08/20/17 17:00 61 22 145/98 100 08/20/17 16:48 96.9 F L 08/20/17 16:42 14 100 08/20/17 16:00 96.9 F L 56 14 132/70 97 08/20/17 15:00 56 14 115/69 99 08/20/17 14:30 12 96 08/20/17 14:00 51 14 125/60 92 08/20/17 13:17 13 98 08/20/17 13:00 52 16 127/62 92 08/20/17 12:00 52 12 120/62 98 08/20/17 11:01 12 98 08/20/17 11:00 96.8 F L 56 12 134/69 98 08/20/17 10:00 53 12 146/73 99 08/20/17 09:00 53 12 146/73 99 08/20/17 08:47 14 99 Intake and Output 08/20/17 08/21/17 08/21/17 23:59 07:59 15:59 Intake Total 1621 / 1621 1002 / 1002 Output Total 375 / 375 325 / 325 Balance 1246 / 1246 677 / 677 Intake: IV Fluids 210 / 210 170 / 170 FentaNYL (PF) 1,000 MCG In 0.9 100 / 100 120 / 120 % Sodium Chloride 80 ML @ 50 MCG/HR 5 mls/hr IVC CONT DAV Rx #:[id number] Calcium Gluconate 1,000 MG In 0 60 / 60 .9 % Sodium Chloride 50 ML @ 30 mls/hr IVPB Q6HR PRN Rx#: [id number] Zosyn 3.375 GM In Dextrose 5% ( 50 / 50 50 / 50 ADD-[place]) 50 ML @ 12.5 mls/ hr IVPB Q8HR DAV Rx#:[id number] Tube Feeding 661 / 661 82 / 82 Free Water 250 / 250 250 / 250 Free Water Intake Amount 500 / 500 500 / 500 Output: Catheter 375 / 375 325 / 325 Other: Stool Size Large Stool Consistency liquid Stool Characteristics Normal for Patient Stool Color Brown # Bowel Movements 1 Weight 90.61 kg Blood Glucose* 189 167 Patient Weight 08/21/17 23:59 Weight 90.61 kg - General Appearance Exam: Patient is currently on the ventilator. He is in no acute distress. Lungs coarse breath sounds. Heart regular rate and rhythm with a systolic murmur. Abdomen is benign. There is lower extremity swelling. - Lab 08/21/17 05:13 08/21/17 05:13 Most recent lab results ABG pH 7.39 pH Units (7.32-7.45) 08/18/17 05:43 ABG pCO2 53 mmHg (35-45) H 08/18/17 05:43 ABG pO2 107 mmHg (85-104) H 08/18/17 05:43 ABG HCO3 32 mEq/L (21-27) H 08/18/17 05:43 ABG O2 Saturation 98 % (95-98) 08/18/17 05:43 Calcium 8.0 mg/dL (8.6-10.8) L 08/21/17 05:13 Phosphorus 3.2 mg/dL (2.3-4.7) 08/21/17 05:13 Magnesium 2.0 mg/dL (1.6-2.6) 08/21/17 05:13 Consult Discharge Plan - Plan Referrals: Ponhco Noriega MD [Primary Care Provider] -
[2017-08-21] MEDS: Chlorhexidine Rinse 15 ML MOUTHWASH MM SCH ×2 (08:45→20:00)
[2017-08-21] MEDS: Sennosides/Docusate Sodium TABLET PO SCH ×2 (08:45→20:04)
[2017-08-21] MEDS: Pantoprazole 40 MG VIAL IVP SCH (08:45)
[2017-08-21] MEDS: Aspirin 81 MG TAB.CHEW PO SCH (08:46)
--- NOTE | 2017-08-21 09:09 | Pulmonology Progress Note ---
<Robert Rodriguez W - Last Filed: 08/21/17 15:23> Date of Encounter: 08/21/17 Assessment and Plan (1) Cardiac arrest Current Visit: Yes Status: Acute (2) Diabetic ulcer of both feet Current Visit: Yes Status: Chronic (3) Diabetes Current Visit: Yes Status: Chronic 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 mellitus half-way insulin use: without termite helper use Qualified Code( s): E11.621 - Type 2 diabetes mellitus with foot ulcer; L97.509 - Non-pressure chronic ulcer of other part of unspecified foot with unspecified severity; L97.509 - Non-pressure chronic ulcer of other part of unspecified foot with unspecified severity; L97.509 - Non-pressure chronic ulcer of other part of unspecified foot with unspecified severity; L97.509 - Non-pressure chronic ulcer of other part of unspecified foot with unspecified severity (4) DVT prophylaxis Current Visit: No Status: Acute (5) CAD (coronary artery disease) Current Visit: No Status: Chronic Qualifiers: Coronary Disease-Associated Artery/Lesion type: [place] artery [place] vs. transplanted heart: [place] heart Associated angina: without angina Qualified Code(s): I25.10 - Atherosclerotic heart disease of [place] coronary artery without angina pectoris (6) Acute respiratory failure Current Visit: Yes Status: Acute Qualifiers: Respiratory failure complication: hypoxia Qualified Code(s): J96.01 - Acute respiratory failure with hypoxia (7) Septic shock Current Visit: Yes Status: Acute (8) Goals of care, counseling/discussion Current Visit: Yes Status: Acute (9) Encephalopathy Current Visit: Yes Status: Acute (10) Seizure Current Visit: Yes Status: Acute Objective PUL Vital signs: Last Vital Signs Temp 98.2 F 08/21/17 12:00 Pulse 65 08/21/17 15:00 Resp 13 08/21/17 15:00 BP 146/66 08/21/17 15:00 Pulse Ox 99 08/21/17 15:00 Ventilator Settings Ventilator Settings: Ventilator Settings, Last 8 Hours Ventilator Mode VC+ Ventilator Mode VC+ Ventilator Mode VC+ Ventilator Mode VC+ Ventilator Mode VC+ Ventilator Mode VC+ Ventilator Mode VC+ Ventilator Mode VC+ Ventilator Mode CPAP Ventilator Mode VC+ Ventilator Tidal Volume 500 Setting Ventilator Tidal Volume 500 Setting Ventilator Tidal Volume 500 Setting Ventilator Tidal Volume 500 Setting Ventilator Tidal Volume 500 Setting Ventilator Tidal Volume 500 Setting Ventilator Tidal Volume 500 Setting Ventilator Tidal Volume 500 Setting Ventilator Tidal Volume 500 Setting Ventilator Tidal Volume 500 Setting Ventilator Respiratory Rate 12 Setting Ventilator Respiratory Rate 12 Setting Ventilator Respiratory Rate 12 Setting Ventilator Respiratory Rate 12 Setting Ventilator Respiratory Rate 12 Setting Ventilator Respiratory Rate 12 Setting Ventilator Respiratory Rate 12 Setting Ventilator Respiratory Rate 12 Setting Ventilator Respiratory Rate 12 Setting Ventilator Respiratory Rate 12 Setting Actual Respiratory Rate 12 Actual Respiratory Rate 12 Actual Respiratory Rate 12 Actual Respiratory Rate 12 Actual Respiratory Rate 12 Actual Respiratory Rate 12 Actual Respiratory Rate 12 Actual Respiratory Rate 12 Actual Respiratory Rate 12 Actual Respiratory Rate 12 Positive End Expiratory 5 Pressure Positive End Expiratory 5 Pressure Positive End Expiratory 5 Pressure Positive End Expiratory 5 Pressure Positive End Expiratory 5 Pressure Positive End Expiratory 5 Pressure Positive End Expiratory 5 Pressure Positive End Expiratory 5 Pressure Positive End Expiratory 5 Pressure Positive End Expiratory 5 Pressure Peak Inspiratory Airway 27 Pressure Peak Inspiratory Airway 35 Pressure Peak Inspiratory Airway 25 Pressure Peak Inspiratory Airway 25 Pressure Peak Inspiratory Airway 25 Pressure Peak Inspiratory Airway 25 Pressure Peak Inspiratory Airway 24 Pressure Results - Laboratory Findings CBC and BMP: 08/21/17 05:13 08/21/17 05:13 ABG ABG pH 7.39 pH Units (7.32-7.45) 08/18/17 05:43 ABG pCO2 53 mmHg (35-45) H 08/18/17 05:43 ABG pO2 107 mmHg (85-104) H 08/18/17 05:43 ABG O2 Saturation 98 % (95-98) 08/18/17 05:43 PT/INR, D-dimer PT 14.0 Seconds (9.4-12.1) H 08/20/17 04:45 Abnormal lab findings: Abnormal lab results WBC 13.1 K/mcL (4.3-11.1) H 08/21/17 05:13 RBC 2.87 M/mcL (4.19-5.50) L 08/21/17 05:13 Hgb 8.3 g/dL (12.9-16.9) L 08/21/17 05:13 Hct 26.1 % (37.5-50.1) L 08/21/17 05:13 RDW 17.2 % (11.5-14.5) H 08/21/17 05:13 Plt Count 79 K/mcL (140-400) L 08/21/17 05:13 MPV 13.3 fL (9.4-12.4) H 08/21/17 05:13 Neutrophils # 11.1 K/mcL (1.6-8.9) H 08/21/17 05:13 Nucleated RBCs/100 WBC 0.2 /100 WBC (0) H 08/19/17 03:02 Platelet Estimate Decreased (Normal) L 08/20/17 04:45 Immature Plt Fraction 14.1 % (1.1-6.1) H 08/20/17 04:45 PT 14.0 Seconds (9.4-12.1) H 08/20/17 04:45 APTT 58.0 Seconds (26.0-36.0) H 08/17/17 03:51 ABG pCO2 53 mmHg (35-45) H 08/18/17 05:43 ABG pO2 107 mmHg (85-104) H 08/18/17 05:43 ABG HCO3 32 mEq/L (21-27) H 08/18/17 05:43 ABG Total CO2 34 mEq/L (20-26) H 08/18/17 05:43 ABG Base Excess 6 mEq/L (-2 to 3) H 08/18/17 05:43 BUN 67 mg/dL (8-26) H 08/21/17 05:13 Creatinine 2.75 mg/dL (0.72-1.25) H 08/21/17 05:13 Est GFR ( Amer) 27 (> 60) L 08/21/17 05:13 Est GFR (Non-Af Amer) 23 (> 60) L 08/21/17 05:13 Glucose 152 mg/dL (70-99) H 08/21/17 05:13 POC Glucose 213 (58-89) H 08/21/17 11:30 Hemoglobin A1c 7.4 % (-5.6) H 08/15/17 05:02 Calculated Osmolality 318 (280-300) H 08/21/17 05:13 Calcium 8.0 mg/dL (8.6-10.8) L 08/21/17 05:13 Ionized Calcium 1.08 mmol/L (1.15-1.35) L 08/21/17 05:13 Troponin I 1.08 ng/mL (0-0.03) H* 08/15/17 12:00 Serum Total Protein 4.9 g/dL (6.0-8.3) L 08/20/17 04:45 Albumin 2.1 g/dL (3.5-5.0) L 08/20/17 04:45 Albumin/Globulin Ratio 0.8 (1.1-2.2) L 08/20/17 04:45 Urine Clarity Turbid (Clear) A 08/14/17 20:57 Urine Protein >=300 mg/dL (Neg-Trace) H 08/14/17 20:57 Urine Ketones Trace mg/dL (Negative) H 08/14/17 20:57 Urine Blood Large (Negative) H 08/14/17 20:57 Ur Leukocyte Esterase Large (Negative) H 08/14/17 20:57 Urine Microscopic RBC TNTC per hpf (0-3) H 08/14/17 20:57 Urine Microscopic WBC TNTC per hpf (0-3) H 08/14/17 20:57 Urine Yeast Few per hpf (None Seen) H 08/14/17 20:57 Ur Culture Indicated? YES (NO) A 08/14/17 20:57 Vancomycin Trough 39.8 mcg/mL (10-20) H* 08/16/17 21:05 - Microbiology Findings Microbiology Findings: Microbiology, Last 48 Hours 08/15/17 01:15 Blood Culture - Final Peripheral Venipuncture No growth. 08/14/17 22:34 Blood Culture - Final Peripheral Venipuncture No growth. 08/17/17 03:51 Sputum Culture - Final Sputum - Clinical Findings Intake & Output: Intake & Output 08/20/17 08/21/17 08/21/17 23:59 07:59 15:59 Intake Total 1621 / 1621 1202 / 1202 1120 / 1120 Output Total 375 / 375 325 / 325 100 / 100 Balance 1246 / 1246 877 / 877 1020 / 1020 Weight 90.61 kg Consult Discharge Plan - Plan Referrals: Poncho Noriega MD [Primary Care Provider] - - Attending Attestation I examined this patient and my medical decision-making was reviewed with the Resident Physician. I agree with the documented findings, disposition and treatment plan as described except to the extent set forth below. We independently had [id number] contact with the patient Patient seen and examined at bedside Labs, radiology, chart personally reviewed. Management was reviewed during multidisciplinary critical care rounds. [place] [place]: Mild encephalopathy today head CT stable continue to treat pain with narcotic avoid sensory deprivation mu-ism of sleep-wake cycle Pulm: Acute hypoxic respiratory failure on vent. Failed CPAP trial after 1 hour today think this is more related to [place] [place] depression and confusion we will continue to optimize and repeat SBT tomorrow Cards: Status post cardiac arrest with an STEMI possible ACS event cardiology following continue beta bro aspirin and statin Renal: Acute on chronic kidney injury multifactorial overall improving continue to monitor urine output while diuresing replace electrolytes per protocol nephrology following appreciate recommendations ID: Treating for possible aspiration pneumonia along with lower extremity diabetic ulcers. Infectious disease consult for optimization of antimicrobials long-term treatment of lower extremity diabetic ulcers Heme/Onc: DVT prophylaxis given. Patient has stable thrombocytopenia risk of DVT is considered greater than risk of bleeding at this time hemoglobin and hematocrit have been stable Endo: Glucose Monitored Integ/MSK: Skin Care per routine ICU Nursing Protocol to prevent ulcers. Lines: All lines examined without evidence of infection : Dispo: Remains in ICU CODE: DNAR. <Jayson Peterson - Last Filed: 08/21/17 15:43> Date of Encounter: 08/21/17 Time of Encounter: 09:06 Assessment and Plan (1) Acute respiratory failure Current Visit: Yes Status: Acute Secondary to cardiac arrest. Patient remains intubated. We have attempted spontaneous breathing trials each day and while he is improved he is not been able to remain stable for ventilator liberation. A large component of this is likely pain related to multiple rib fractures or CPR. We will continue with fentanyl infusion. Qualifiers: Respiratory failure complication: hypoxia Qualified Code(s): J96.01 - Acute respiratory failure with hypoxia (2) Cardiac arrest Current Visit: Yes Status: Acute Etiology unclear at this time, possible acute coronary syndrome. Cardiology saw the patient no indication for invasive intervention at this time. (3) Septic shock Current Visit: Yes Status: Acute Resolved. Patient is no longer requiring vasopressors. Likely sources include aspiration pneumonia in the setting of cardiac arrest as discussed above, as well as the patient's known infected foot wounds for which she was on IV antibiotics. We will continue with vancomycin and Zosyn, infectious disease has been consulted. (4) Diabetic ulcer of both feet Current Visit: Yes Status: Chronic Status post wound debridement and on IV antibiotics at home for osteomyelitis. Continue wound care. ID consult as above. (5) Acute kidney injury Current Visit: Yes Status: Acute Likely related to hypoperfusion in the setting of cardiac arrest as above. Creatinine is stabilized, urine output continues to improve. We will give a dose of Lasix today to encourage urine output and mobilize fluid. Nephrology is following. (6) Diabetes Current Visit: Yes Status: Chronic 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 mellitus termite helper insulin use: without termite helper use Qualified Code( s): E11.621 - Type 2 diabetes mellitus with foot ulcer; L97.509 - Non-pressure chronic ulcer of other part of unspecified foot with unspecified severity; L97.509 - Non-pressure chronic ulcer of other part of unspecified foot with unspecified severity; L97.509 - Non-pressure chronic ulcer of other part of unspecified foot with unspecified severity; L97.509 - Non-pressure chronic ulcer of other part of unspecified foot with unspecified severity (7) CAD (coronary artery disease) Current Visit: No Status: Chronic Qualifiers: Coronary Disease-Associated Artery/Lesion type: [place] artery [place] vs. transplanted heart: [place] heart Associated angina: without angina Qualified Code(s): I25.10 - Atherosclerotic heart disease of [place] coronary artery without angina pectoris Subjective Principal diagnosis: Cardiac Arrest Interval history: Patient seen and examined at bedside. He remains intubated minimally sedated. He will occasionally follow commands. He does not appear to be in any acute distress. Objective PUL Vital signs: Last Vital Signs Temp 97.7 F 08/21/17 07:36 Pulse 82 08/21/17 06:00 Resp 12 08/21/17 08:04 BP 159/70 08/21/17 08:04 Pulse Ox 99 08/21/17 08:04 General appearance: no acute distress ENT: oropharynx moist Auscultation: bilateral: diminished breath sounds Cardiovascular: regular rate and rhythm Gastrointestinal: hypoactive bowel sounds, soft, non-tender, non-distended Extremities: no cyanosis, no edema, no clubbing, other (Dressings applied to bilateral foot wounds, dressings clean dry and intact) unable to assess due to mental status Ventilator Settings Ventilator Settings: Ventilator Settings, Last 8 Hours Ventilator Mode CPAP Ventilator Mode CPAP Ventilator Mode CPAP Ventilator Mode VC+ Ventilator Mode VC+ Ventilator Mode VC+ Ventilator Mode VC+ Ventilator Mode VC+ Ventilator Mode VC+ Ventilator Tidal Volume 500 Setting Ventilator Tidal Volume 500 Setting Ventilator Tidal Volume 500 Setting Ventilator Tidal Volume 500 Setting Ventilator Tidal Volume 500 Setting Ventilator Tidal Volume 500 Setting Ventilator Tidal Volume 500 Setting Ventilator Respiratory Rate 12 Setting Ventilator Respiratory Rate 12 Setting Ventilator Respiratory Rate 12 Setting Ventilator Respiratory Rate 12 Setting Ventilator Respiratory Rate 12 Setting Ventilator Respiratory Rate 12 Setting Ventilator Respiratory Rate 12 Setting Ventilator Respiratory Rate 12 Setting Actual Respiratory Rate 12 Actual Respiratory Rate 12 Actual Respiratory Rate 11 Actual Respiratory Rate 12 Actual Respiratory Rate 13 Actual Respiratory Rate 14 Actual Respiratory Rate 12 Actual Respiratory Rate 13 Actual Respiratory Rate 12 Positive End Expiratory 5 Pressure Positive End Expiratory 5 Pressure Positive End Expiratory 5 Pressure Positive End Expiratory 5 Pressure Positive End Expiratory 5 Pressure Positive End Expiratory 5 Pressure Positive End Expiratory 5 Pressure Positive End Expiratory 5 Pressure Positive End Expiratory 5 Pressure Peak Inspiratory Airway 24 Pressure Peak Inspiratory Airway 18 Pressure Peak Inspiratory Airway 15 Pressure Peak Inspiratory Airway 23 Pressure Peak Inspiratory Airway 25 Pressure Peak Inspiratory Airway 23 Pressure Peak Inspiratory Airway 34 Pressure Peak Inspiratory Airway 24 Pressure Peak Inspiratory Airway 24 Pressure Results - Laboratory Findings CBC and BMP: 08/21/17 05:13 08/21/17 05:13 ABG ABG pH 7.39 pH Units (7.32-7.45) 08/18/17 05:43 ABG pCO2 53 mmHg (35-45) H 08/18/17 05:43 ABG pO2 107 mmHg (85-104) H 08/18/17 05:43 ABG O2 Saturation 98 % (95-98) 08/18/17 05:43 PT/INR, D-dimer PT 14.0 Seconds (9.4-12.1) H 08/20/17 04:45 Abnormal lab findings: Abnormal lab results WBC 13.1 K/mcL (4.3-11.1) H 08/21/17 05:13 RBC 2.87 M/mcL (4.19-5.50) L 08/21/17 05:13 Hgb 8.3 g/dL (12.9-16.9) L 08/21/17 05:13 Hct 26.1 % (37.5-50.1) L 08/21/17 05:13 RDW 17.2 % (11.5-14.5) H 08/21/17 05:13 Plt Count 79 K/mcL (140-400) L 08/21/17 05:13 MPV 13.3 fL (9.4-12.4) H 08/21/17 05:13 Neutrophils # 11.1 K/mcL (1.6-8.9) H 08/21/17 05:13 Nucleated RBCs/100 WBC 0.2 /100 WBC (0) H 08/19/17 03:02 Platelet Estimate Decreased (Normal) L 08/20/17 04:45 Immature Plt Fraction 14.1 % (1.1-6.1) H 08/20/17 04:45 PT 14.0 Seconds (9.4-12.1) H 08/20/17 04:45 APTT 58.0 Seconds (26.0-36.0) H 08/17/17 03:51 ABG pCO2 53 mmHg (35-45) H 08/18/17 05:43 ABG pO2 107 mmHg (85-104) H 08/18/17 05:43 ABG HCO3 32 mEq/L (21-27) H 08/18/17 05:43 ABG Total CO2 34 mEq/L (20-26) H 08/18/17 05:43 ABG Base Excess 6 mEq/L (-2 to 3) H 08/18/17 05:43 BUN 67 mg/dL (8-26) H 08/21/17 05:13 Creatinine 2.75 mg/dL (0.72-1.25) H 08/21/17 05:13 Est GFR ( Amer) 27 (> 60) L 08/21/17 05:13 Est GFR (Non-Af Amer) 23 (> 60) L 08/21/17 05:13 Glucose 152 mg/dL (70-99) H 08/21/17 05:13 POC Glucose 167 (58-89) H 08/21/17 05:48 Hemoglobin A1c 7.4 % (-5.6) H 08/15/17 05:02 Calculated Osmolality 318 (280-300) H 08/21/17 05:13 Calcium 8.0 mg/dL (8.6-10.8) L 08/21/17 05:13 Ionized Calcium 1.08 mmol/L (1.15-1.35) L 08/21/17 05:13 Troponin I 1.08 ng/mL (0-0.03) H* 08/15/17 12:00 Serum Total Protein 4.9 g/dL (6.0-8.3) L 08/20/17 04:45 Albumin 2.1 g/dL (3.5-5.0) L 08/20/17 04:45 Albumin/Globulin Ratio 0.8 (1.1-2.2) L 08/20/17 04:45 Urine Clarity Turbid (Clear) A 08/14/17 20:57 Urine Protein >=300 mg/dL (Neg-Trace) H 08/14/17 20:57 Urine Ketones Trace mg/dL (Negative) H 08/14/17 20:57 Urine Blood Large (Negative) H 08/14/17 20:57 Ur Leukocyte Esterase Large (Negative) H 08/14/17 20:57 Urine Microscopic RBC TNTC per hpf (0-3) H 08/14/17 20:57 Urine Microscopic WBC TNTC per hpf (0-3) H 08/14/17 20:57 Urine Yeast Few per hpf (None Seen) H 08/14/17 20:57 Ur Culture Indicated? YES (NO) A 08/14/17 20:57 Vancomycin Trough 39.8 mcg/mL (10-20) H* 08/16/17 21:05 - Microbiology Findings Microbiology Findings: Microbiology, Last 48 Hours 08/15/17 01:15 Blood Culture - Final Peripheral Venipuncture No growth. 08/14/17 22:34 Blood Culture - Final Peripheral Venipuncture No growth. 08/17/17 03:51 Sputum Culture - Final Sputum - Clinical Findings Intake & Output: Intake & Output 08/20/17 08/21/17 08/21/17 23:59 07:59 15:59 Intake Total 1621 / 1621 1002 / 1002 Output Total 375 / 375 325 / 325 Balance 1246 / 1246 677 / 677 Weight 90.61 kg
--- NOTE | 2017-08-21 09:22 | Palliative Progress Note ---
<Santos Bird - Last Filed: 08/21/17 09:20> Date of Encounter: 08/21/17 Time of Encounter: 09:20 - Assessment and plan (1) Goals of care, counseling/discussion Current Visit: Yes Status: Acute Assessment and plan: DNR-CCA son would like to continue treatment as patient was making some progress patient has failed CPAP trials last three days today more somnolent but does open eyes sluggishly and does squeeze hand when asked. (2) Cardiac arrest Current Visit: Yes Status: Acute Assessment and plan: Witnessed cardiac arrest patient now intubated not sedated weaned off noepinephrine plan as per primary (3) Acute kidney injury Current Visit: Yes Status: Acute Assessment and plan: 2nd to cardiopulmonary arrest, anemia, vacomycin improving increased urine output nephrology consulted (4) Diabetic ulcer of both feet Current Visit: Yes Status: Chronic Assessment and plan: being treated for MRSA, enterococuss, proteus mirabilis, and klebsiella infection on zosyn wound are on board. (5) Broken ribs Current Visit: Yes Status: Acute Assessment and plan: 2nd to cpr multiple broken ribs patient is on fentanyl drip for pain relief Qualifiers: Encounter type: initial encounter Rib fracture type: multiple ribs Fracture type: closed Laterality: bilateral Qualified Code(s): S22.43XA - Multiple fractures of ribs, bilateral, initial encounter for closed fracture - Time Spent With Patient Total time spent is greater than 50% in coordination of care (as documented) at patient's floor/unit and/or counseling patient: - Subjective Interval history: Intubated. Failed CPAP trial this morning. More somnolent as well. Less responsive to verbal stimulation. - Constitutional Vitals: Abnormal lab results WBC 13.1 K/mcL (4.3-11.1) H 08/21/17 05:13 RBC 2.87 M/mcL (4.19-5.50) L 08/21/17 05:13 Hgb 8.3 g/dL (12.9-16.9) L 08/21/17 05:13 Hct 26.1 % (37.5-50.1) L 08/21/17 05:13 RDW 17.2 % (11.5-14.5) H 08/21/17 05:13 Plt Count 79 K/mcL (140-400) L 08/21/17 05:13 MPV 13.3 fL (9.4-12.4) H 08/21/17 05:13 Neutrophils # 11.1 K/mcL (1.6-8.9) H 08/21/17 05:13 Nucleated RBCs/100 WBC 0.2 /100 WBC (0) H 08/19/17 03:02 Platelet Estimate Decreased (Normal) L 08/20/17 04:45 Immature Plt Fraction 14.1 % (1.1-6.1) H 08/20/17 04:45 PT 14.0 Seconds (9.4-12.1) H 08/20/17 04:45 APTT 58.0 Seconds (26.0-36.0) H 08/17/17 03:51 ABG pCO2 53 mmHg (35-45) H 08/18/17 05:43 ABG pO2 107 mmHg (85-104) H 08/18/17 05:43 ABG HCO3 32 mEq/L (21-27) H 08/18/17 05:43 ABG Total CO2 34 mEq/L (20-26) H 08/18/17 05:43 ABG Base Excess 6 mEq/L (-2 to 3) H 08/18/17 05:43 BUN 67 mg/dL (8-26) H 08/21/17 05:13 Creatinine 2.75 mg/dL (0.72-1.25) H 08/21/17 05:13 Est GFR ( Amer) 27 (> 60) L 08/21/17 05:13 Est GFR (Non-Af Amer) 23 (> 60) L 08/21/17 05:13 Glucose 152 mg/dL (70-99) H 08/21/17 05:13 POC Glucose 167 (58-89) H 08/21/17 05:48 Hemoglobin A1c 7.4 % (-5.6) H 08/15/17 05:02 Calculated Osmolality 318 (280-300) H 08/21/17 05:13 Calcium 8.0 mg/dL (8.6-10.8) L 08/21/17 05:13 Ionized Calcium 1.08 mmol/L (1.15-1.35) L 08/21/17 05:13 Troponin I 1.08 ng/mL (0-0.03) H* 08/15/17 12:00 Serum Total Protein 4.9 g/dL (6.0-8.3) L 08/20/17 04:45 Albumin 2.1 g/dL (3.5-5.0) L 08/20/17 04:45 Albumin/Globulin Ratio 0.8 (1.1-2.2) L 08/20/17 04:45 Urine Clarity Turbid (Clear) A 08/14/17 20:57 Urine Protein >=300 mg/dL (Neg-Trace) H 08/14/17 20:57 Urine Ketones Trace mg/dL (Negative) H 08/14/17 20:57 Urine Blood Large (Negative) H 08/14/17 20:57 Ur Leukocyte Esterase Large (Negative) H 08/14/17 20:57 Urine Microscopic RBC TNTC per hpf (0-3) H 08/14/17 20:57 Urine Microscopic WBC TNTC per hpf (0-3) H 08/14/17 20:57 Urine Yeast Few per hpf (None Seen) H 08/14/17 20:57 Ur Culture Indicated? YES (NO) A 08/14/17 20:57 Vancomycin Trough 39.8 mcg/mL (10-20) H* 08/16/17 21:05 - Additional findings Additional findings: General: intubated, eyes open sluggishly Eyes: reactive to light Heart: sinus rhythm Lungs: clear anteriorly Abdomen: Soft nontender, nondistended absent bowel sounds Skin: cool, dry Extremities: 2+ pedal edema Neuro: alert, opens eye delayed/sluggish with verbal stimulation, squeezing hand when asked Palliative Quality Palliative Quality: Screen for Code Status: Yes, Screen for Goals of Care: Yes, Screen for Pain: No, If Pain Regimen Started, Initiate Bowel Regimen: Yes, Screen for Nausea/Vomitting: No Code Status: 08/15/17 00:52 Resuscitation Status: Active [RES] Routine Comment: Resuscitation Status: Full Code 08/18/17 11:42 CODE [Resuscitation Status: Active] [RES] Routine Comment: Resuscitation Status: DNR-Comfort Care-Arrest - Labs CBC & Chem 7: 08/21/17 05:13 08/21/17 05:13 Labs: Laboratory Results - last 24 hr 11/04/2908/20/17 08/20/17 11:43 11:50 16:28 WBC RBC Hgb Hct MCV MCH MCHC RDW Plt Count MPV Immature Gran % Seg Neutrophils % Lymphocytes % Monocytes % Eosinophils % Basophils % Neutrophils # Lymphocytes # Monocytes # Eosinophils # Basophils # Sodium Potassium 4.1 Chloride Carbon Dioxide BUN Creatinine Est GFR ( Amer) Est GFR (Non-Af Amer) BUN/Creatinine Ratio Glucose POC Glucose 223 H 218 H Calculated Osmolality Calcium Ionized Calcium 1.08 L Phosphorus Magnesium 08/20/17 08/20/17 08/21/17 17:23 23:47 05:13 WBC 13.1 H RBC 2.87 L Hgb 8.3 L Hct 26.1 L MCV 90.9 MCH 28.9 MCHC 31.8 RDW 17.2 H Plt Count 79 L MPV 13.3 H Immature Gran % 0.6 Seg Neutrophils % 84.9 Lymphocytes % 4.5 Monocytes % 8.8 Eosinophils % 1.0 Basophils % 0.2 Neutrophils # 11.1 H Lymphocytes # 0.6 Monocytes # 1.2 Eosinophils # 0.1 Basophils # 0.0 Sodium Potassium Chloride Carbon Dioxide BUN Creatinine Est GFR ( Amer) Est GFR (Non-Af Amer) BUN/Creatinine Ratio Glucose POC Glucose 189 H 180 H Calculated Osmolality Calcium Ionized Calcium Phosphorus Magnesium 08/21/17 08/21/17 05:13 05:48 WBC RBC Hgb Hct MCV MCH MCHC RDW Plt Count MPV Immature Gran % Seg Neutrophils % Lymphocytes % Monocytes % Eosinophils % Basophils % Neutrophils # Lymphocytes # Monocytes # Eosinophils # Basophils # Sodium 143 Potassium 3.9 Chloride 105 Carbon Dioxide 29 BUN 67 H Creatinine 2.75 H Est GFR ( Amer) 27 L Est GFR (Non-Af Amer) 23 L BUN/Creatinine Ratio 24 Glucose 152 H POC Glucose 167 H Calculated Osmolality 318 H Calcium 8.0 L Ionized Calcium 1.08 L Phosphorus 3.2 Magnesium 2.0 - ABG Interpretation ABG results: ABG ABG pH 7.39 pH Units (7.32-7.45) 08/18/17 05:43 ABG pCO2 53 mmHg (35-45) H 08/18/17 05:43 ABG pO2 107 mmHg (85-104) H 08/18/17 05:43 ABG O2 Saturation 98 % (95-98) 08/18/17 05:43 PT/INR, D-dimer PT 14.0 Seconds (9.4-12.1) H 08/20/17 04:45 Consult Discharge Plan - Plan Referrals: Poncho Noriega MD [Primary Care Provider] - <Juwan Hennessy - Last Filed: 08/21/17 10:03> Date of Encounter: 08/21/17 - Time Spent With Patient Total time spent is greater than 50% in coordination of care (as documented) at patient's floor/unit and/or counseling patient: - Constitutional Vitals: Abnormal lab results WBC 13.1 K/mcL (4.3-11.1) H 08/21/17 05:13 RBC 2.87 M/mcL (4.19-5.50) L 08/21/17 05:13 Hgb 8.3 g/dL (12.9-16.9) L 08/21/17 05:13 Hct 26.1 % (37.5-50.1) L 08/21/17 05:13 RDW 17.2 % (11.5-14.5) H 08/21/17 05:13 Plt Count 79 K/mcL (140-400) L 08/21/17 05:13 MPV 13.3 fL (9.4-12.4) H 08/21/17 05:13 Neutrophils # 11.1 K/mcL (1.6-8.9) H 08/21/17 05:13 Nucleated RBCs/100 WBC 0.2 /100 WBC (0) H 08/19/17 03:02 Platelet Estimate Decreased (Normal) L 08/20/17 04:45 Immature Plt Fraction 14.1 % (1.1-6.1) H 08/20/17 04:45 PT 14.0 Seconds (9.4-12.1) H 08/20/17 04:45 APTT 58.0 Seconds (26.0-36.0) H 08/17/17 03:51 ABG pCO2 53 mmHg (35-45) H 08/18/17 05:43 ABG pO2 107 mmHg (85-104) H 08/18/17 05:43 ABG HCO3 32 mEq/L (21-27) H 08/18/17 05:43 ABG Total CO2 34 mEq/L (20-26) H 08/18/17 05:43 ABG Base Excess 6 mEq/L (-2 to 3) H 08/18/17 05:43 BUN 67 mg/dL (8-26) H 08/21/17 05:13 Creatinine 2.75 mg/dL (0.72-1.25) H 08/21/17 05:13 Est GFR ( Amer) 27 (> 60) L 08/21/17 05:13 Est GFR (Non-Af Amer) 23 (> 60) L 08/21/17 05:13 Glucose 152 mg/dL (70-99) H 08/21/17 05:13 POC Glucose 167 (58-89) H 08/21/17 05:48 Hemoglobin A1c 7.4 % (-5.6) H 08/15/17 05:02 Calculated Osmolality 318 (280-300) H 08/21/17 05:13 Calcium 8.0 mg/dL (8.6-10.8) L 08/21/17 05:13 Ionized Calcium 1.08 mmol/L (1.15-1.35) L 08/21/17 05:13 Troponin I 1.08 ng/mL (0-0.03) H* 08/15/17 12:00 Serum Total Protein 4.9 g/dL (6.0-8.3) L 08/20/17 04:45 Albumin 2.1 g/dL (3.5-5.0) L 08/20/17 04:45 Albumin/Globulin Ratio 0.8 (1.1-2.2) L 08/20/17 04:45 Urine Clarity Turbid (Clear) A 08/14/17 20:57 Urine Protein >=300 mg/dL (Neg-Trace) H 08/14/17 20:57 Urine Ketones Trace mg/dL (Negative) H 08/14/17 20:57 Urine Blood Large (Negative) H 08/14/17 20:57 Ur Leukocyte Esterase Large (Negative) H 08/14/17 20:57 Urine Microscopic RBC TNTC per hpf (0-3) H 08/14/17 20:57 Urine Microscopic WBC TNTC per hpf (0-3) H 08/14/17 20:57 Urine Yeast Few per hpf (None Seen) H 08/14/17 20:57 Ur Culture Indicated? YES (NO) A 08/14/17 20:57 Vancomycin Trough 39.8 mcg/mL (10-20) H* 08/16/17 21:05 - Attending Attestation I examined this patient and my medical decision-making was reviewed with the Resident Physician. I agree with the documented findings, disposition and treatment plan as described except to the extent set forth below. Palliative Quality Code Status: 08/15/17 00:52 Resuscitation Status: Active [RES] Routine Comment: Resuscitation Status: Full Code 08/18/17 11:42 CODE [Resuscitation Status: Active] [RES] Routine Comment: Resuscitation Status: DNR-Comfort Care-Arrest - Labs CBC & Chem 7: 08/21/17 05:13 08/21/17 05:13 Labs: Laboratory Results - last 24 hr 08/20/17 08/20/17 08/20/17 11:43 11:50 16:28 WBC RBC Hgb Hct MCV MCH MCHC RDW Plt Count MPV Immature Gran % Seg Neutrophils % Lymphocytes % Monocytes % Eosinophils % Basophils % Neutrophils # Lymphocytes # Monocytes # Eosinophils # Basophils # Sodium Potassium 4.1 Chloride Carbon Dioxide BUN Creatinine Est GFR ( Amer) Est GFR (Non-Af Amer) BUN/Creatinine Ratio Glucose POC Glucose 223 H 218 H Calculated Osmolality Calcium Ionized Calcium 1.08 L Phosphorus Magnesium 08/20/17 08/20/17 08/21/17 17:23 23:47 05:13 WBC 13.1 H RBC 2.87 L Hgb 8.3 L Hct 26.1 L MCV 90.9 MCH 28.9 MCHC 31.8 RDW 17.2 H Plt Count 79 L MPV 13.3 H Immature Gran % 0.6 Seg Neutrophils % 84.9 Lymphocytes % 4.5 Monocytes % 8.8 Eosinophils % 1.0 Basophils % 0.2 Neutrophils # 11.1 H Lymphocytes # 0.6 Monocytes # 1.2 Eosinophils # 0.1 Basophils # 0.0 Sodium Potassium Chloride Carbon Dioxide BUN Creatinine Est GFR ( Amer) Est GFR (Non-Af Amer) BUN/Creatinine Ratio Glucose POC Glucose 189 H 180 H Calculated Osmolality Calcium Ionized Calcium Phosphorus Magnesium 08/21/17 08/21/17 05:13 05:48 WBC RBC Hgb Hct MCV MCH MCHC RDW Plt Count MPV Immature Gran % Seg Neutrophils % Lymphocytes % Monocytes % Eosinophils % Basophils % Neutrophils # Lymphocytes # Monocytes # Eosinophils # Basophils # Sodium 143 Potassium 3.9 Chloride 105 Carbon Dioxide 29 BUN 67 H Creatinine 2.75 H Est GFR ( Amer) 27 L Est GFR (Non-Af Amer) 23 L BUN/Creatinine Ratio 24 Glucose 152 H POC Glucose 167 H Calculated Osmolality 318 H Calcium 8.0 L Ionized Calcium 1.08 L Phosphorus 3.2 Magnesium 2.0 - ABG Interpretation ABG results: ABG ABG pH 7.39 pH Units (7.32-7.45) 08/18/17 05:43 ABG pCO2 53 mmHg (35-45) H 08/18/17 05:43 ABG pO2 107 mmHg (85-104) H 08/18/17 05:43 ABG O2 Saturation 98 % (95-98) 08/18/17 05:43 PT/INR, D-dimer PT 14.0 Seconds (9.4-12.1) H 08/20/17 04:45
[2017-08-21] MEDS: Budesonide/Formoterol 160/4.5 MDI IH SCH ×2 (09:50→20:08)
[2017-08-21] MEDS ORDERED: Furosemide 40 MG/4 ML VIAL IVP ONE (10:28)
[2017-08-21 12:47] LABS: Ionized Calcium 1.07 mmol/L (1.15-1.35)
[2017-08-21 12:49] LABS: Potassium 4.2 mEq/L (3.5-4.5)
[2017-08-22] MEDS: Insulin LISPRO 300 UNITS/3 ML VIAL SQ SCH ×7 (01:05→23:58)
[2017-08-22] MEDS: Lacri-Lube 3.5 GM TUBE BOTH EYES SCH ×6 (01:05→21:52)
[2017-08-22] MEDS: Piperacillin/Tazobactam 3.375 GM in D5% in Water 50 ML IVPB SCH ×4 (01:08→23:55)
[2017-08-22] MEDS: FentaNYL (PF) 1,000 MCG in 0.9 % Sodium Chloride 80 ML IVC SCH (03:38)
[2017-08-22 04:41] LABS: Hemoglobin 7.4 g/dL (12.9-16.9); Red Cell Distribution Width 17.2 % (11.5-14.5)
[2017-08-22 04:43] LABS: Basophils % 0.2 %; Eosinophils # 0.1 K/mcL (0.0-0.6); Eosinophils % 0.8 %; Hematocrit 23.8 % (37.5-50.1); Immature Granulocytes % 0.6 % (0-4); Immature Platelets 14.8 % (1.1-6.1); Lymphocytes # 0.8 K/mcL (0.6-4.6); Lymphocytes % 6.7 %; Mean Corpuscular HGB Conc 31.1 g/dL (31.6-35.5); Mean Corpuscular Hemoglobin 28.8 pg (28.0-33.3); Mean Corpuscular Volume 92.6 fL (83.0-100.0); Mean Platelet Volume 13.2 fL (9.4-12.4); Monocytes # 1.3 K/mcL (0.0-1.3); Monocytes % 10.8 %; Neutrophils # 9.8 K/mcL (1.6-8.9); Red Blood Count 2.57 M/mcL (4.19-5.50); Segmented Neutrophils % 80.9 %
[2017-08-22 04:45] LABS: INR 1.2; Prothrombin Time 12.6 Seconds (9.4-12.1)
[2017-08-22 04:47] LABS: Platelet Count 84 K/mcL (140-400)
[2017-08-22 04:49] LABS: Ionized Calcium 1.07 mmol/L (1.15-1.35)
[2017-08-22 04:54] LABS: Calcium 7.9 mg/dL (8.6-10.8); Magnesium 1.9 mg/dL (1.6-2.6); Phosphorous 3.4 mg/dL (2.3-4.7); Potassium 4.2 mEq/L (3.5-4.5)
[2017-08-22 04:57] LABS: Albumin/Globulin Ratio 0.6 (1.1-2.2); Bilirubin,Direct 0.4 mg/dL (0.0-0.5); Bilirubin,Indirect 0.3 mg/dL (0.0-1.2); Bilirubin,Total 0.7 mg/dL (0.2-1.2); Total Protein 4.9 g/dL (6.0-8.3)
[2017-08-22 05:08] LABS: Albumin 1.9 g/dL (3.5-5.0)
[2017-08-22] MEDS: *HR* Heparin 5,000 UNIT/ML VIAL SQ SCH ×3 (06:18→21:51)
[2017-08-22 07:46] LABS: ABG Base Excess 6 mEq/L (-2 to 3); ABG HCO3 31 mEq/L (21-27); ABG Oxygen Saturation 99 % (95-98); ABG PCO2 52 mmHg (35-45); ABG PH 7.39 pH Units (7.32-7.45); ABG PO2 125 mmHg (85-104); ABG TCO2 33 mEq/L (20-26); Blood Gas Modality ASSIST CONTROL; Blood Gas Respiration Rate 12; Blood Gas VT 500 cc
--- NOTE | 2017-08-22 08:32 | Pulmonology Progress Note ---
<Yohana Ocasio - Last Filed: 08/22/17 11:57> Date of Encounter: 08/22/17 Time of Encounter: 08:29 Assessment and Plan (1) Acute respiratory failure Current Visit: Yes Status: Acute -CPAP trial lasting 9 minutes today -remains on mechanical ventilation -plan to make patient more acidotic to increase patient's own respiratory drive ; will reassess with afternoon ABG Qualifiers: Respiratory failure complication: hypoxia Qualified Code(s): J96.01 - Acute respiratory failure with hypoxia (2) Cardiac arrest Current Visit: Yes Status: Acute -possibly 2/2 ACS, seen by cardiology--no invasive management at this time -continuing medical management -continue ASA, statin -BB being held 2/2 low heart rate -continue to monitor on tele (3) Septic shock Current Visit: Yes Status: Resolved -possibly d/t aspiration PNA, complicated by b/l diabetic foot ulcers already being treated with IV abx -continue vancomycin (pharm to dose d/t renal function) and zosyn (4) Acute kidney injury Current Visit: Yes Status: Acute -urine output 250 mL so far today -creatinine appears to have plateaued, 2.81 today -nephrology consulted, recommendations appreciated - (5) 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 transplanted heart: [place] heart Associated angina: without angina Qualified Code(s): I25.10 - Atherosclerotic heart disease of [place] coronary artery without angina pectoris (7) Diabetes Current Visit: Yes Status: Chronic -SSI (Lispro) for glycemic control -continue to monitor glucose and adjust insulin as needed 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 mellitus care home insulin use: without intermission coordinator use Qualified Code( s): E11.621 - Type 2 diabetes mellitus with foot ulcer; L97.509 - Non-pressure chronic ulcer of other part of unspecified foot with unspecified severity; L97.509 - Non-pressure chronic ulcer of other part of unspecified foot with unspecified severity; L97.509 - Non-pressure chronic ulcer of other part of unspecified foot with unspecified severity; L97.509 - Non-pressure chronic ulcer of other part of unspecified foot with unspecified severity (8) Encephalopathy Current Visit: Yes Status: Acute -head CT stable, no acute intracranial abnormalities (9) DVT prophylaxis Current Visit: No Status: Acute -Heparin 5000 units SQ Q8H Subjective Principal diagnosis: Cardiac Arrest Interval history: Seen and examined at bedside this morning. Remains on mechanical ventilation. Objective PUL Vital signs: Last Vital Signs Temp 98.6 F 08/22/17 08:04 Pulse 58 08/22/17 06:00 Resp 16 08/22/17 07:31 BP 148/74 08/22/17 07:31 Pulse Ox 98 08/22/17 07:31 Ventilator Settings Ventilator Settings: Ventilator Settings, Last 8 Hours Ventilator Mode VC+ Ventilator Mode VC+ Ventilator Mode CPAP Ventilator Mode VC+ Ventilator Mode VC+ Ventilator Mode VC+ Ventilator Mode VC+ Ventilator Mode VC+ Ventilator Mode VC+ Ventilator Mode VC+ Ventilator Mode VC+ Ventilator Mode VC+ Ventilator Tidal Volume 500 Setting Ventilator Tidal Volume 500 Setting Ventilator Tidal Volume 500 Setting Ventilator Tidal Volume 500 Setting Ventilator Tidal Volume 500 Setting Ventilator Tidal Volume 500 Setting Ventilator Tidal Volume 500 Setting Ventilator Tidal Volume 500 Setting Ventilator Tidal Volume 500 Setting Ventilator Tidal Volume 500 Setting Ventilator Tidal Volume 500 Setting Ventilator Respiratory Rate 16 Setting Ventilator Respiratory Rate 12 Setting Ventilator Respiratory Rate 12 Setting Ventilator Respiratory Rate 12 Setting Ventilator Respiratory Rate 12 Setting Ventilator Respiratory Rate 12 Setting Ventilator Respiratory Rate 12 Setting Ventilator Respiratory Rate 12 Setting Ventilator Respiratory Rate 12 Setting Ventilator Respiratory Rate 12 Setting Ventilator Respiratory Rate 12 Setting Actual Respiratory Rate 16 Actual Respiratory Rate 11 Actual Respiratory Rate 12 Actual Respiratory Rate 12 Actual Respiratory Rate 12 Actual Respiratory Rate 12 Actual Respiratory Rate 12 Actual Respiratory Rate 12 Actual Respiratory Rate 12 Actual Respiratory Rate 12 Actual Respiratory Rate 12 Positive End Expiratory 5 Pressure Positive End Expiratory 5 Pressure Positive End Expiratory 5 Pressure Positive End Expiratory 5 Pressure Positive End Expiratory 5 Pressure Positive End Expiratory 5 Pressure Positive End Expiratory 5 Pressure Positive End Expiratory 5 Pressure Positive End Expiratory 5 Pressure Positive End Expiratory 5 Pressure Positive End Expiratory 5 Pressure Positive End Expiratory 5 Pressure Peak Inspiratory Airway 25 Pressure Peak Inspiratory Airway 15 Pressure Peak Inspiratory Airway 25 Pressure Peak Inspiratory Airway 26 Pressure Peak Inspiratory Airway 24 Pressure Peak Inspiratory Airway 28 Pressure Peak Inspiratory Airway 26 Pressure Peak Inspiratory Airway 27 Pressure Peak Inspiratory Airway 29 Pressure Peak Inspiratory Airway 29 Pressure Peak Inspiratory Airway 31 Pressure Results - Laboratory Findings CBC and BMP: 08/22/17 04:10 08/22/17 04:10 ABG ABG pH 7.39 pH Units (7.32-7.45) 08/22/17 07:41 ABG pCO2 52 mmHg (35-45) H 08/22/17 07:41 ABG pO2 125 mmHg (85-104) H 08/22/17 07:41 ABG O2 Saturation 99 % (95-98) H 08/22/17 07:41 PT/INR, D-dimer PT 12.6 Seconds (9.4-12.1) H 08/22/17 04:10 Abnormal lab findings: Abnormal lab results WBC 12.1 K/mcL (4.3-11.1) H 08/22/17 04:10 RBC 2.57 M/mcL (4.19-5.50) L 08/22/17 04:10 Hgb 7.4 g/dL (12.9-16.9) L 08/22/17 04:10 Hct 23.8 % (37.5-50.1) L 08/22/17 04:10 MCHC 31.1 g/dL (31.6-35.5) L 08/22/17 04:10 RDW 17.2 % (11.5-14.5) H 08/22/17 04:10 Plt Count 84 K/mcL (140-400) L 08/22/17 04:10 MPV 13.2 fL (9.4-12.4) H 08/22/17 04:10 Neutrophils # 9.8 K/mcL (1.6-8.9) H 08/22/17 04:10 Nucleated RBCs/100 WBC 0.2 /100 WBC (0) H 08/19/17 03:02 Platelet Estimate Decreased (Normal) L 08/20/17 04:45 Immature Plt Fraction 14.8 % (1.1-6.1) H 08/22/17 04:10 PT 12.6 Seconds (9.4-12.1) H 08/22/17 04:10 APTT 58.0 Seconds (26.0-36.0) H 08/17/17 03:51 ABG pCO2 52 mmHg (35-45) H 08/22/17 07:41 ABG pO2 125 mmHg (85-104) H 08/22/17 07:41 ABG HCO3 31 mEq/L (21-27) H 08/22/17 07:41 ABG Total CO2 33 mEq/L (20-26) H 08/22/17 07:41 ABG O2 Saturation 99 % (95-98) H 08/22/17 07:41 ABG Base Excess 6 mEq/L (-2 to 3) H 08/22/17 07:41 Carbon Dioxide 30 mEq/L (19-29) H 08/22/17 04:10 BUN 66 mg/dL (8-26) H 08/22/17 04:10 Creatinine 2.81 mg/dL (0.72-1.25) H 08/22/17 04:10 Est GFR ( Amer) 27 (> 60) L 08/22/17 04:10 Est GFR (Non-Af Amer) 22 (> 60) L 08/22/17 04:10 POC Glucose 111 (58-89) H 08/22/17 07:32 Hemoglobin A1c 7.4 % (-5.6) H 08/15/17 05:02 Calculated Osmolality 315 (280-300) H 08/22/17 04:10 Calcium 7.9 mg/dL (8.6-10.8) L 08/22/17 04:10 Ionized Calcium 1.07 mmol/L (1.15-1.35) L 08/22/17 04:10 Troponin I 1.08 ng/mL (0-0.03) H* 08/15/17 12:00 Serum Total Protein 4.9 g/dL (6.0-8.3) L 08/22/17 04:10 Albumin 1.9 g/dL (3.5-5.0) L 08/22/17 04:10 Albumin/Globulin Ratio 0.6 (1.1-2.2) L 08/22/17 04:10 Urine Clarity Turbid (Clear) A 08/14/17 20:57 Urine Protein >=300 mg/dL (Neg-Trace) H 08/14/17 20:57 Urine Ketones Trace mg/dL (Negative) H 08/14/17 20:57 Urine Blood Large (Negative) H 08/14/17 20:57 Ur Leukocyte Esterase Large (Negative) H 08/14/17 20:57 Urine Microscopic RBC TNTC per hpf (0-3) H 08/14/17 20:57 Urine Microscopic WBC TNTC per hpf (0-3) H 08/14/17 20:57 Urine Yeast Few per hpf (None Seen) H 08/14/17 20:57 Ur Culture Indicated? YES (NO) A 08/14/17 20:57 Vancomycin Trough 39.8 mcg/mL (10-20) H* 08/16/17 21:05 - Microbiology Findings Microbiology Findings: Microbiology, Last 48 Hours 08/15/17 01:15 Blood Culture - Final Peripheral Venipuncture No growth. 08/14/17 22:34 Blood Culture - Final Peripheral Venipuncture No growth. - Clinical Findings Intake & Output: Intake & Output 08/21/17 08/22/17 08/22/17 23:59 07:59 15:59 Intake Total 721 / 721 655 / 655 Output Total 250 / 250 150 / 150 100 / 100 Balance 471 / 471 505 / 505 -100 / -100 Weight 92.06 kg Consult Discharge Plan - Plan Referrals: Poncho Noriega MD [Primary Care Provider] - <Ronit James - Last Filed: 08/22/17 21:24> Date of Encounter: 08/22/17 Objective PUL Vital signs: Last Vital Signs Temp 97.8 F 08/22/17 16:20 Pulse 72 08/22/17 17:00 Resp 9 08/22/17 17:08 BP 140/61 08/22/17 17:08 Pulse Ox 98 08/22/17 17:08 Ventilator Settings Ventilator Settings: Ventilator Settings, Last 8 Hours Ventilator Mode CPAP Ventilator Mode CPAP Ventilator Mode CPAP Ventilator Mode CPAP Ventilator Mode CPAP Ventilator Mode CPAP Ventilator Mode CPAP Ventilator Mode VC+ Ventilator Mode VC+ Ventilator Mode VC+ Ventilator Mode VC+ Ventilator Mode VC+ Ventilator Tidal Volume 390 Setting Ventilator Tidal Volume 390 Setting Ventilator Tidal Volume 390 Setting Ventilator Tidal Volume 390 Setting Ventilator Tidal Volume 390 Setting Ventilator Respiratory Rate 12 Setting Ventilator Respiratory Rate 12 Setting Ventilator Respiratory Rate 12 Setting Ventilator Respiratory Rate 12 Setting Ventilator Respiratory Rate 12 Setting Actual Respiratory Rate 9 Actual Respiratory Rate 9 Actual Respiratory Rate 15 Actual Respiratory Rate 15 Actual Respiratory Rate 15 Actual Respiratory Rate 8 Actual Respiratory Rate 15 Actual Respiratory Rate 14 Actual Respiratory Rate 14 Actual Respiratory Rate 15 Actual Respiratory Rate 14 Actual Respiratory Rate 14 Positive End Expiratory 5 Pressure Positive End Expiratory 5 Pressure Positive End Expiratory 5 Pressure Positive End Expiratory 5 Pressure Positive End Expiratory 5 Pressure Positive End Expiratory 5 Pressure Positive End Expiratory 5 Pressure Positive End Expiratory 5 Pressure Positive End Expiratory 5 Pressure Positive End Expiratory 5 Pressure Positive End Expiratory 5 Pressure Positive End Expiratory 5 Pressure Peak Inspiratory Airway 14 Pressure Peak Inspiratory Airway 14 Pressure Peak Inspiratory Airway 14 Pressure Peak Inspiratory Airway 14 Pressure Peak Inspiratory Airway 14 Pressure Peak Inspiratory Airway 20 Pressure Peak Inspiratory Airway 21 Pressure Peak Inspiratory Airway 23 Pressure Peak Inspiratory Airway 23 Pressure Peak Inspiratory Airway 20 Pressure Results - Laboratory Findings CBC and BMP: 08/22/17 04:10 08/22/17 04:10 ABG ABG pH 7.37 pH Units (7.32-7.45) 08/22/17 14:12 ABG pCO2 53 mmHg (35-45) H 08/22/17 14:12 ABG pO2 121 mmHg (85-104) H 08/22/17 14:12 ABG O2 Saturation 99 % (95-98) H 08/22/17 14:12 PT/INR, D-dimer PT 12.6 Seconds (9.4-12.1) H 08/22/17 04:10 Abnormal lab findings: Abnormal lab results WBC 12.1 K/mcL (4.3-11.1) H 08/22/17 04:10 RBC 2.57 M/mcL (4.19-5.50) L 08/22/17 04:10 Hgb 7.4 g/dL (12.9-16.9) L 08/22/17 04:10 Hct 23.8 % (37.5-50.1) L 08/22/17 04:10 MCHC 31.1 g/dL (31.6-35.5) L 08/22/17 04:10 RDW 17.2 % (11.5-14.5) H 08/22/17 04:10 Plt Count 84 K/mcL (140-400) L 08/22/17 04:10 MPV 13.2 fL (9.4-12.4) H 08/22/17 04:10 Neutrophils # 9.8 K/mcL (1.6-8.9) H 08/22/17 04:10 Nucleated RBCs/100 WBC 0.2 /100 WBC (0) H 08/19/17 03:02 Platelet Estimate Decreased (Normal) L 08/20/17 04:45 Immature Plt Fraction 14.8 % (1.1-6.1) H 08/22/17 04:10 PT 12.6 Seconds (9.4-12.1) H 08/22/17 04:10 APTT 58.0 Seconds (26.0-36.0) H 08/17/17 03:51 ABG pCO2 53 mmHg (35-45) H 08/22/17 14:12 ABG pO2 121 mmHg (85-104) H 08/22/17 14:12 ABG HCO3 30 mEq/L (21-27) H 08/22/17 14:12 ABG Total CO2 32 mEq/L (20-26) H 08/22/17 14:12 ABG O2 Saturation 99 % (95-98) H 08/22/17 14:12 ABG Base Excess 4 mEq/L (-2 to 3) H 08/22/17 14:12 Carbon Dioxide 30 mEq/L (19-29) H 08/22/17 04:10 BUN 66 mg/dL (8-26) H 08/22/17 04:10 Creatinine 2.81 mg/dL (0.72-1.25) H 08/22/17 04:10 Est GFR ( Amer) 27 (> 60) L 08/22/17 04:10 Est GFR (Non-Af Amer) 22 (> 60) L 08/22/17 04:10 POC Glucose 192 (58-89) H 08/22/17 15:33 Hemoglobin A1c 7.4 % (-5.6) H 08/15/17 05:02 Calculated Osmolality 315 (280-300) H 08/22/17 04:10 Calcium 7.9 mg/dL (8.6-10.8) L 08/22/17 04:10 Ionized Calcium 1.07 mmol/L (1.15-1.35) L 08/22/17 15:04 Troponin I 1.08 ng/mL (0-0.03) H* 08/15/17 12:00 Serum Total Protein 4.9 g/dL (6.0-8.3) L 08/22/17 04:10 Albumin 1.9 g/dL (3.5-5.0) L 08/22/17 04:10 Albumin/Globulin Ratio 0.6 (1.1-2.2) L 08/22/17 04:10 Urine Clarity Turbid (Clear) A 08/14/17 20:57 Urine Protein >=300 mg/dL (Neg-Trace) H 08/14/17 20:57 Urine Ketones Trace mg/dL (Negative) H 08/14/17 20:57 Urine Blood Large (Negative) H 08/14/17 20:57 Ur Leukocyte Esterase Large (Negative) H 08/14/17 20:57 Urine Microscopic RBC TNTC per hpf (0-3) H 08/14/17 20:57 Urine Microscopic WBC TNTC per hpf (0-3) H 08/14/17 20:57 Urine Yeast Few per hpf (None Seen) H 08/14/17 20:57 Ur Culture Indicated? YES (NO) A 08/14/17 20:57 Vancomycin Trough 39.8 mcg/mL (10-20) H* 08/16/17 21:05 - Clinical Findings Intake & Output: Intake & Output 08/22/17 08/22/17 08/22/17 07:59 15:59 23:59 Intake Total 655 / 655 885 / 885 400 / 400 Output Total 150 / 150 225 / 225 200 / 200 Balance 505 / 505 660 / 660 200 / 200 Weight 92.06 kg - Attending Attestation I saw the patient with the resident agree with History and Physical exam findings. Labs and Radiology were reviewed Ventilator data were reviewed tidal volume was reduced to decrease minute ventilation POLICE CHIEF: Patient is intubated and sedated following commands turn off all sedations as patient is apneic in SBT to use intermittent opioids NECK : No JVD appreciated Pulmonary : Patient has hypoxic respiratory failure secondary to fluid overload with bilateral pleural effusion will continue diuresis with no much secretions from endotracheal tube low probability for pneumonia . Adjusted MV to make him more Cardiac : Hemodynamicaly stable , CO no invasive intervention for now Nutrition/GI: Patient is on tube feeds, PPI prophylaxis Renal : Renal labs reviewed , output reviewed , Nephrology is following ok for Albumin and Lasix Heme onc : No acute issues ID : To continue Broad spectrum antibiotics , consulted ID for intermission coordinator antibiotics for his osteomyelitis according to recommendation to start back on Vancomycin renally dosed. Musculo skeletal / skin issues : No acute issues Disposition : Critically ill Code status: DNRA Family/POA: Son
--- NOTE | 2017-08-22 09:00 | Palliative Progress Note ---
Date of Encounter: 08/22/17 Time of Encounter: 08:57 - Assessment and plan (1) Goals of care, counseling/discussion Current Visit: Yes Status: Acute Assessment and plan: DNR-CCA son would like to continue treatment as patient was making some progress patient has failed multiple CPAP trials. intubated for 8 days. Need to discuss with family if patient wishes would be to go ahead with tracheostomy and PEG or he would not want these interventions and would like to be kept comfortable. (2) Cardiac arrest Current Visit: Yes Status: Acute Assessment and plan: Witnessed cardiac arrest patient now intubated not sedated weaned off noepinephrine plan as per primary (3) Acute kidney injury Current Visit: Yes Status: Acute Assessment and plan: 2nd to cardiopulmonary arrest, anemia, vacomycin improving increased urine output nephrology consulted (4) Diabetic ulcer of both feet Current Visit: Yes Status: Chronic Assessment and plan: being treated for MRSA, enterococuss, proteus mirabilis, and klebsiella infection on zosyn wound are on board. (5) Broken ribs Current Visit: Yes Status: Acute Assessment and plan: 2nd to cpr multiple broken ribs patient is on fentanyl drip for pain relief Qualifiers: Encounter type: initial encounter Rib fracture type: multiple ribs Fracture type: closed Laterality: bilateral Qualified Code(s): S22.43XA - Multiple fractures of ribs, bilateral, initial encounter for closed fracture - Time Spent With Patient Total time spent is greater than 50% in coordination of care (as documented) at patient's floor/unit and/or counseling patient: - Subjective Interval history: Intubated now day 8. Failed CPAP trial this morning. NO acute changes overnight. - Constitutional Vitals: Abnormal lab results WBC 12.1 K/mcL (4.3-11.1) H 08/22/17 04:10 RBC 2.57 M/mcL (4.19-5.50) L 08/22/17 04:10 Hgb 7.4 g/dL (12.9-16.9) L 08/22/17 04:10 Hct 23.8 % (37.5-50.1) L 08/22/17 04:10 MCHC 31.1 g/dL (31.6-35.5) L 08/22/17 04:10 RDW 17.2 % (11.5-14.5) H 08/22/17 04:10 Plt Count 84 K/mcL (140-400) L 08/22/17 04:10 MPV 13.2 fL (9.4-12.4) H 08/22/17 04:10 Neutrophils # 9.8 K/mcL (1.6-8.9) H 08/22/17 04:10 Nucleated RBCs/100 WBC 0.2 /100 WBC (0) H 08/19/17 03:02 Platelet Estimate Decreased (Normal) L 08/20/17 04:45 Immature Plt Fraction 14.8 % (1.1-6.1) H 08/22/17 04:10 PT 12.6 Seconds (9.4-12.1) H 08/22/17 04:10 APTT 58.0 Seconds (26.0-36.0) H 08/17/17 03:51 ABG pCO2 52 mmHg (35-45) H 08/22/17 07:41 ABG pO2 125 mmHg (85-104) H 08/22/17 07:41 ABG HCO3 31 mEq/L (21-27) H 08/22/17 07:41 ABG Total CO2 33 mEq/L (20-26) H 08/22/17 07:41 ABG O2 Saturation 99 % (95-98) H 08/22/17 07:41 ABG Base Excess 6 mEq/L (-2 to 3) H 08/22/17 07:41 Carbon Dioxide 30 mEq/L (19-29) H 08/22/17 04:10 BUN 66 mg/dL (8-26) H 08/22/17 04:10 Creatinine 2.81 mg/dL (0.72-1.25) H 08/22/17 04:10 Est GFR ( Amer) 27 (> 60) L 08/22/17 04:10 Est GFR (Non-Af Amer) 22 (> 60) L 08/22/17 04:10 POC Glucose 111 (58-89) H 08/22/17 07:32 Hemoglobin A1c 7.4 % (-5.6) H 08/15/17 05:02 Calculated Osmolality 315 (280-300) H 08/22/17 04:10 Calcium 7.9 mg/dL (8.6-10.8) L 08/22/17 04:10 Ionized Calcium 1.07 mmol/L (1.15-1.35) L 08/22/17 04:10 Troponin I 1.08 ng/mL (0-0.03) H* 08/15/17 12:00 Serum Total Protein 4.9 g/dL (6.0-8.3) L 08/22/17 04:10 Albumin 1.9 g/dL (3.5-5.0) L 08/22/17 04:10 Albumin/Globulin Ratio 0.6 (1.1-2.2) L 08/22/17 04:10 Urine Clarity Turbid (Clear) A 08/14/17 20:57 Urine Protein >=300 mg/dL (Neg-Trace) H 08/14/17 20:57 Urine Ketones Trace mg/dL (Negative) H 08/14/17 20:57 Urine Blood Large (Negative) H 08/14/17 20:57 Ur Leukocyte Esterase Large (Negative) H 08/14/17 20:57 Urine Microscopic RBC TNTC per hpf (0-3) H 08/14/17 20:57 Urine Microscopic WBC TNTC per hpf (0-3) H 08/14/17 20:57 Urine Yeast Few per hpf (None Seen) H 08/14/17 20:57 Ur Culture Indicated? YES (NO) A 08/14/17 20:57 Vancomycin Trough 39.8 mcg/mL (10-20) H* 08/16/17 21:05 - Additional findings Additional findings: General: intubated, eyes open Eyes: reactive to light Heart: sinus rhythm Lungs: clear anteriorly Abdomen: Soft nontender, nondistended absent bowel sounds Skin: cool, dry Extremities: 2+ pedal edema Neuro: alert, opens eye delayed/sluggish with verbal stimulation, squeezing hand when asked Palliative Quality Palliative Quality: Screen for Code Status: Yes, Screen for Goals of Care: Yes, Screen for Pain: No, If Pain Regimen Started, Initiate Bowel Regimen: Yes, Screen for Nausea/Vomitting: No Code Status: 08/15/17 00:52 Resuscitation Status: Active [RES] Routine Comment: Resuscitation Status: Full Code 08/18/17 11:42 CODE [Resuscitation Status: Active] [RES] Routine Comment: Resuscitation Status: DNR-Comfort Care-Arrest - Labs CBC & Chem 7: 08/22/17 04:10 08/22/17 04:10 Labs: Laboratory Results - last 24 hr 08/21/17 08/21/17 08/21/17 00:27 11:30 15:28 WBC RBC Hgb Hct MCV MCH MCHC RDW Plt Count MPV Immature Gran % Seg Neutrophils % Lymphocytes % Monocytes % Eosinophils % Basophils % Neutrophils # Lymphocytes # Monocytes # Eosinophils # Basophils # Immature Plt Fraction PT INR Sample Site ABG pH ABG pCO2 ABG pO2 ABG HCO3 ABG Total CO2 ABG O2 Saturation ABG Base Excess [place] Test Respiration Rate O2 Delivery Device Blood Gas Modality Inspired O2 Tidal Volume Sodium Potassium 4.2 Chloride Carbon Dioxide BUN Creatinine Est GFR ( Amer) Est GFR (Non-Af Amer) BUN/Creatinine Ratio Glucose POC Glucose 213 H 181 H Calculated Osmolality Calcium Ionized Calcium 1.07 L Phosphorus Magnesium Total Bilirubin Direct Bilirubin Indirect Bilirubin AST ALT Alkaline Phosphatase Serum Total Protein Albumin Globulin Albumin/Globulin Ratio 08/21/17 08/21/17 08/22/17 19:24 23:13 03:45 WBC RBC Hgb Hct MCV MCH MCHC RDW Plt Count MPV Immature Gran % Seg Neutrophils % Lymphocytes % Monocytes % Eosinophils % Basophils % Neutrophils # Lymphocytes # Monocytes # Eosinophils # Basophils # Immature Plt Fraction PT INR Sample Site ABG pH ABG pCO2 ABG pO2 ABG HCO3 ABG Total CO2 ABG O2 Saturation ABG Base Excess [place] Test Respiration Rate O2 Delivery Device Blood Gas Modality Inspired O2 Tidal Volume Sodium Potassium Chloride Carbon Dioxide BUN Creatinine Est GFR ( Amer) Est GFR (Non-Af Amer) BUN/Creatinine Ratio Glucose POC Glucose 203 H 113 H 98 H Calculated Osmolality Calcium Ionized Calcium Phosphorus Magnesium Total Bilirubin Direct Bilirubin Indirect Bilirubin AST ALT Alkaline Phosphatase Serum Total Protein Albumin Globulin Albumin/Globulin Ratio 08/22/17 08/22/17 08/22/17 04:10 04:10 04:10 WBC 12.1 H RBC 2.57 L Hgb 7.4 L Hct 23.8 L MCV 92.6 MCH 28.8 MCHC 31.1 L RDW 17.2 H Plt Count 84 L MPV 13.2 H Immature Gran % 0.6 Seg Neutrophils % 80.9 Lymphocytes % 6.7 Monocytes % 10.8 Eosinophils % 0.8 Basophils % 0.2 Neutrophils # 9.8 H Lymphocytes # 0.8 Monocytes # 1.3 Eosinophils # 0.1 Basophils # 0.0 Immature Plt Fraction 14.8 H PT 12.6 H INR 1.2 Sample Site ABG pH ABG pCO2 ABG pO2 ABG HCO3 ABG Total CO2 ABG O2 Saturation ABG Base Excess [place] Test Respiration Rate O2 Delivery Device Blood Gas Modality Inspired O2 Tidal Volume Sodium 143 Potassium 4.2 Chloride 105 Carbon Dioxide 30 H BUN 66 H Creatinine 2.81 H Est GFR ( Amer) 27 L Est GFR (Non-Af Amer) 22 L BUN/Creatinine Ratio 23 Glucose 97 POC Glucose Calculated Osmolality 315 H Calcium 7.9 L Ionized Calcium 1.07 L Phosphorus 3.4 Magnesium 1.9 Total Bilirubin Direct Bilirubin Indirect Bilirubin AST ALT Alkaline Phosphatase Serum Total Protein Albumin Globulin Albumin/Globulin Ratio 08/22/17 08/22/17 08/22/17 04:10 07:32 07:41 WBC RBC Hgb Hct MCV MCH MCHC RDW Plt Count MPV Immature Gran % Seg Neutrophils % Lymphocytes % Monocytes % Eosinophils % Basophils % Neutrophils # Lymphocytes # Monocytes # Eosinophils # Basophils # Immature Plt Fraction PT INR Sample Site L Brach ABG pH 7.39 ABG pCO2 52 H ABG pO2 125 H ABG HCO3 31 H ABG Total CO2 33 H ABG O2 Saturation 99 H ABG Base Excess 6 H Esteban Test N/A Respiration Rate 12 O2 Delivery Device Adult Vent Blood Gas Modality ASSIST CONTROL Inspired O2 45.0 Tidal Volume 500 Sodium Potassium Chloride Carbon Dioxide BUN Creatinine Est GFR ( Amer) Est GFR (Non-Af Amer) BUN/Creatinine Ratio Glucose POC Glucose 111 H Calculated Osmolality Calcium Ionized Calcium Phosphorus Magnesium Total Bilirubin 0.7 Direct Bilirubin 0.4 Indirect Bilirubin 0.3 AST 19 ALT 20 Alkaline Phosphatase 89 Serum Total Protein 4.9 L Albumin 1.9 L Globulin 3.0 Albumin/Globulin Ratio 0.6 L - Impressions Impressions Chest X-Ray 08/22/17 07:32 IMPRESSION: Persistent bilateral pleural effusions and patchy airspace opacities, mildly improved given differences in modality from prior CTA chest 08/15/2017. D/ / 08/22/2017 08:24:43 Jose Ward MD / christian Interpreting Provider: Jose Ward MD - ABG Interpretation ABG results: ABG ABG pH 7.39 pH Units (7.32-7.45) 08/22/17 07:41 ABG pCO2 52 mmHg (35-45) H 08/22/17 07:41 ABG pO2 125 mmHg (85-104) H 08/22/17 07:41 ABG O2 Saturation 99 % (95-98) H 08/22/17 07:41 PT/INR, D-dimer PT 12.6 Seconds (9.4-12.1) H 08/22/17 04:10 Consult Discharge Plan - Plan Referrals: Poncho Noriega MD [Primary Care Provider] -
--- NOTE | 2017-08-22 09:18 | Nephrology Progress Note ---
Date of Encounter: 08/22/17 Time of Encounter: 09:05 - Assessment and Plan (1) Acute kidney injury Current Visit: Yes Status: Acute YUMIKO in setting of cardiac arrest, hypovolemia, Vanc toxicity. Will monitor, no immediate need for dialysis. Avoid nephrotoxins. Documented urine output 875cc last 24 hours following IV Lasix. Subjective Principal diagnosis: Cardiac Arrest Interval history: Intubated, failed CPAP times 3 days. Objective - Vital Signs Vital signs: Vital Signs Temp Pulse Resp BP Pulse Ox 08/22/17 09:00 65 12 148/72 98 08/22/17 08:04 98.6 F 08/22/17 08:00 61 12 139/74 99 08/22/17 07:31 16 148/74 98 08/22/17 06:26 11 98 08/22/17 06:00 58 12 152/71 99 08/22/17 05:04 12 99 08/22/17 05:00 57 12 122/60 99 08/22/17 04:15 96.6 F L 12 98 08/22/17 04:00 53 12 119/67 99 08/22/17 03:00 49 12 126/59 98 08/22/17 02:05 12 99 08/22/17 02:00 49 12 114/60 99 08/22/17 01:00 51 12 116/64 98 08/22/17 00:00 97.5 F L 51 12 123/64 90 08/21/17 23:59 12 100 08/21/17 23:00 57 12 121/59 99 08/21/17 22:18 12 99 08/21/17 22:00 56 12 119/57 90 08/21/17 21:00 64 12 153/79 98 08/21/17 20:09 14 98 08/21/17 20:00 97.3 F L 66 12 149/73 98 08/21/17 19:00 65 12 137/75 98 08/21/17 18:29 12 138/64 99 08/21/17 18:00 64 12 138/64 99 08/21/17 17:00 61 12 127/60 99 08/21/17 16:00 58 14 126/69 98 08/21/17 15:52 13 146/66 99 08/21/17 15:51 97.9 F 08/21/17 15:00 65 13 146/66 99 11/08/17 14:00 75 12 100/71 98 08/21/17 13:00 64 12 130/60 98 08/21/17 12:00 98.2 F 68 12 139/66 100 08/21/17 11:00 66 12 139/64 100 08/21/17 10:00 58 12 115/54 98 08/21/17 09:51 12 141/62 99 Intake and Output 08/21/17 08/22/17 08/22/17 23:59 07:59 15:59 Intake Total 721 / 721 655 / 655 0 / 0 Output Total 250 / 250 150 / 150 100 / 100 Balance 471 / 471 505 / 505 -100 / -100 Intake: IV Fluids 190 / 190 155 / 155 FentaNYL (PF) 1,000 MCG In 0.9 80 / 80 105 / 105 % Sodium Chloride 80 ML @ 50 MCG/HR 5 mls/hr IVC CONT DAV Rx #:[id number] Calcium Gluconate 1,000 MG In 0 60 / 60 .9 % Sodium Chloride 50 ML @ 30 mls/hr IVPB Q6HR PRN Rx#: [id number] Zosyn 3.375 GM In Dextrose 5% ( 50 / 50 50 / 50 ADD-[place]) 50 ML @ 12.5 mls/ hr IVPB Q8HR [facility] Rx#:[id number] Tube Feeding 281 / 281 Free Water 250 / 250 250 / 250 Free Water Intake Amount 250 / 250 0 / 0 Output: Catheter 250 / 250 150 / 150 100 / 100 Other: Stool Size Moderate Moderate Stool Consistency liquid loose liquid Stool Color Brown Brown # Bowel Movements 1 1 Weight 92.06 kg Blood Glucose* 203 97 111 Patient Weight 08/22/17 23:59 Weight 92.06 kg - General Appearance General appearance: Present: chronically ill, intubated EENT: Present: mucous membranes moist Neck: Present: no JVD Respiratory: Present: clear Cardiology: Present: edema, regular rate, regular rhythm Additional Comments: 3+ LE/scrotum Gastrointestinal: Present: hypoactive bowel sounds Integumentary: Present: warm and dry - Lab 08/22/17 04:10 08/22/17 04:10 Most recent lab results ABG pH 7.39 pH Units (7.32-7.45) 08/22/17 07:41 ABG pCO2 52 mmHg (35-45) H 08/22/17 07:41 ABG pO2 125 mmHg (85-104) H 08/22/17 07:41 ABG HCO3 31 mEq/L (21-27) H 08/22/17 07:41 ABG O2 Saturation 99 % (95-98) H 08/22/17 07:41 Calcium 7.9 mg/dL (8.6-10.8) L 08/22/17 04:10 Phosphorus 3.4 mg/dL (2.3-4.7) 08/22/17 04:10 Magnesium 1.9 mg/dL (1.6-2.6) 08/22/17 04:10 Consult Discharge Plan - Plan Referrals: Poncho Noriega MD [Primary Care Provider] -
[2017-08-22] MEDS: Sennosides/Docusate Sodium TABLET PO SCH (09:28)
[2017-08-22] MEDS: Budesonide/Formoterol 160/4.5 MDI IH SCH ×2 (09:30→19:52)
[2017-08-22] MEDS: Aspirin 81 MG TAB.CHEW PO SCH (09:33)
[2017-08-22] MEDS: Pantoprazole 40 MG VIAL IVP SCH (09:33)
[2017-08-22] MEDS: Chlorhexidine Rinse 15 ML MOUTHWASH MM SCH ×2 (09:33→21:50)
[2017-08-22] MEDS ORDERED: Sennosides/Docusate Sodium TABLET PO PRN (10:58)
[2017-08-22] MEDS ORDERED: Furosemide 40 MG/4 ML VIAL IVP ONE ×2 (13:03→22:58)
[2017-08-22] MEDS ORDERED: Albumin 25% 25gram/100mL 25 GM/100 ML IV.SOLN IVPB ONE (13:24)
[2017-08-22 14:16] LABS: ABG Base Excess 4 mEq/L (-2 to 3); ABG HCO3 30 mEq/L (21-27); ABG Oxygen Saturation 99 % (95-98); ABG PCO2 53 mmHg (35-45); ABG PH 7.37 pH Units (7.32-7.45); ABG PO2 121 mmHg (85-104); ABG TCO2 32 mEq/L (20-26); Blood Gas Modality ASSIST CONTROL; Blood Gas Respiration Rate 12; Blood Gas VT 380 cc
[2017-08-22] MEDS: Erythromycin Lactobionate 250 MG in 0.9 % Sodium Chloride 100 ML IVPB SCH ×2 (15:05→21:51)
[2017-08-22 15:18] LABS: Magnesium 2.2 mg/dL (1.6-2.6)
[2017-08-22 15:22] LABS: Ionized Calcium 1.07 mmol/L (1.15-1.35)
--- NOTE | 2017-08-22 15:37 | Infectious Disease Consult ---
Date of Encounter: 08/22/17 Time of Encounter: 15:35 Assessment and Plan (1) Cardiac arrest Status: Resolved Assessment and plan: Status post witnessed cardiac arrest 08/14/17. Etiology unclear. ROSC after CPR and ACLS protocol initiation. (2) Shock Status: Acute Assessment and plan: Septic vs. cardiogenic. The patient had cardiac arrest followed by hypotension requiring vasopressors, leukocytosis, and fever. Vasopressors have been weaned off. WBC improving. Management per the ICU team. (3) Osteomyelitis Status: Acute Assessment and plan: Location: Left heel. Diagnosed on previous hospitalization. Patient discharged on IV antibiotics, but not sure who was following these in the outpatient setting. MRI of the left foot completed 07/22/17 showed findings consistent with early osteomyelitis vs. reactive osteitis. Podiatry was consulted, but no surgical intervention was done as the ulcer looked good and the patient had improved clinically. According to the discharge summary, the patient was discharged on IV Vancomycin and IV Levaquin. Cultures at that time grew out MRSA and [place]. Unable to assess the wounds today due to nursing having just changed the dressings. I have requested they wait to complete the dressing change tomorrow until I am able to see the patient first. Check ESR and CRP. Recommend Podiatry to evaluate and offer wound care recommendations. Start Vancomycin IV. Pharmacy to dose. Goal trough approximately 15. Continue Zosyn 3.375 grams IV Q8H. Duration of treatment depends on the clinical picture, but likely a total of 6 weeks of IV antibiotics. Treat through 08/31/17 and if no additional infectious diseases are identified, can discontinue antibiotics. Qualifiers: Osteomyelitis type: other acute Osteomyelitis location: foot Laterality: left Qualified Code(s): M86.172 - Other acute osteomyelitis, left ankle and foot (4) Abnormal CT scan, chest Status: Acute Assessment and plan: CT scan of the chest showed multiple fractured ribs, small to moderate bilateral pleural effusions, and pulmonary consolidative changed and multifocal infoltrates bilaterally suggestive of PNA. Repeat CXR 08/22/17 shows persistent bilateral pleural effusions and patchy airspace opacities, mildly improved compared to the CT of the chest. Case discussed with Dr. James and Dr. Peterson who feel these findings are likely related to fluid volume overload, but the notes do reveal that there is concern for aspiration of tube feeds. Will continue antibiotics as above for now for OM, which will also cover for pneumonia. (5) Acute kidney injury Status: Acute Assessment and plan: Likely multifactorial: shock + cardiac arrest + hypotension + nephrotoxic medications. Improved. Nephrology consulted and following. Continue to trend. Dose-adjust antibiotics. Avoid nephrotoxins as able. (6) Elevated troponin Status: Resolved Assessment and plan: Likely secondary to cardiac arrest. Cardiology consulted and signed off. (7) Acute respiratory failure Status: Acute Assessment and plan: Secondary to cardiac arrest, persistent due to acute encephalopathy. Continues to require full ventilatory support. Failed CPAP this morning. Management per the ICU team. Qualifiers: Respiratory failure complication: hypoxia Qualified Code(s): J96.01 - Acute respiratory failure with hypoxia (8) Encephalopathy Status: Acute Assessment and plan: Appears improved, but patient still difficult to maintain wakefulness. Does follow some commands. CT head negative for acute findings x 2. EEG negative. (9) Pressure ulcer of left heel, unstageable Status: Acute Assessment and plan: Previously diagnosed with OM of the left heel. Consider podiatry consult for evaluation. Continue wound care and offloading. (10) Arterial leg ulcer Status: Chronic Assessment and plan: Location: Bilateral feel and RLE. Improved per nursing report. Continue wound care. (11) Broken ribs Status: Acute Assessment and plan: Secondary to CPR. Pain management per the primary team. Qualifiers: Encounter type: initial encounter Rib fracture type: multiple ribs Fracture type: closed Laterality: bilateral Qualified Code(s): S22.43XA - Multiple fractures of ribs, bilateral, initial encounter for closed fracture (12) Fluid overload Status: Acute Assessment and plan: Management per the ICU and nephrology teams. Qualifiers: Hypervolemia type: other Qualified Code(s): E87.79 - Other fluid overload (13) CHF (congestive heart failure) Status: Chronic Qualifiers: Congestive heart failure type: unspecified congestive heart failure type Congestive heart failure chronicity: acute Qualified Code(s): I50.9 - Heart failure, unspecified (14) CAD (coronary artery disease) Status: Chronic Qualifiers: Coronary Disease-Associated Artery/Lesion type: [place] artery [place] vs. transplanted heart: [place] heart Associated angina: without angina Qualified Code(s): I25.10 - Atherosclerotic heart disease of [place] coronary artery without angina pectoris (15) Pleural effusion Status: Acute Assessment and plan: Location: Bilateral. Likely secondary to fluid volume overload. Management per the pulmonary team. Infectious Disease HPI - Data of Consult Patient: known to practice within the last 3 years Consult date: 08/22/17 Requesting Physician: Gary See MD Primary Care Provider: Poncho Noriega MD - Consult Narrative Reason for consult: Osteomyelitis History of present illness: Mr. Mayorga is a 77 year old male with a past medical history of COPD, CAD, diabetes, hyperlipidemia, hypertension, and left foot osteomyelitis. The patient was admitted to the hospital August 14 after he sustained a cardiac arrest. We are consulted August 22 for antibiotic recommendations regarding left foot osteomyelitis. The patient is a 77-year-old male with past medical history as stated above. The patient is noted to the infectious disease service as we're consulted on his case during her recent hospitalization. At that time, the patient had presented with multiple arterial ulcers to the bilateral feet and legs. He was diagnosed with left calcaneus osteomyelitis. It was recommended the patient received a prolonged course of IV antibiotics. While he was hospitalized, the primary team took over managing his antibiotics and infectious disease signed off. The patient was discharged to a local extended care facility and I'm unsure he was following his antibiotics at that time. Apparently, the patient sustained a witnessed cardiac arrest on the day of admission. He presented to the ER NPA and received a total of 4 FB, to sodium bicarbonate, 1 calcium, and 2 rails and atropine before he had return of spontaneous circulation. He was hypotensive and started on Levophed. He was subsequently intubated, had an OG placed, had a left femoral central line, a line, and Hernandez catheter placed. Chest x-ray showed cardiomegaly with bilateral pleural effusions and nonspecific parenchymal opacities consistent with edema versus aspiration versus pneumonia. The patient was admitted to the ICU where he has remained intubated. He has been off sedation for several days, but continues to be somewhat encephalopathic. He has failed CPAP trials multiple times. He did have a CT of the chest that showed multiple fractured ribs as well as findings consistent multifocal opacities. He did spike a fever with a MAXIMUM TEMPERATURE of 101.7, but has been afebrile for days now. He did sustain an acute kidney injury which appears to be improving. Nephrology has been consulted for this and has been following. He is feeling culture that was negative. He had blood cultures that were negative 2 sets. Urine culture was positive for yeast, but was otherwise negative. Cardiology was consulted and saw the patient later troponin, but this was felt to likely be secondary to his cardiac arrest although an acute coronary syndrome could not be ruled out. Repeat CXR this morning shows persistent bilateral pleural effusions and patchy airspace opacities, mildly improved when compared to the prior CT of the chest. Currently, the patient is on IV Zosyn. We've been asked to evaluate and make further recommendations. My exam today, the patient remains intubated. He does awaken to verbal stimuli and shakes his head yes when asked if he is in pain. He is otherwise unable to provide me with any information. CC: Gary See MD Past Med Surg Social Fam HX - Past Medical History Source: old records reviewed, nursing notes reviewed Medical history: COPD, coronary artery disease, diabetes, hyperlipidemia, hypertension, other (Osteomyelitis left heel) Psychiatric history: no psych history - Past Surgical History Surgical History: no surgical history - Social History Smoking Status: Unknown if ever smoked Smokeless Tobacco Status: No Alcohol use: none Drug use: none - Family History Mother Family Member Ethnicity: Non- Living Status: Hx Family Cardiac Disorders: Yes (CAD) Hx Family Endocrine Disorder: Yes (DM) Father Family Member Ethnicity: Non- Living Status: Hx Family Cardiac Disorders: Yes (HD) Hx Family Respiratory Disorders: Yes (Emphysema) Brother Family Member Ethnicity: Non- Living Status: Still Living Hx Family Cardiac Disorders: Yes (HD, HTN) Hx Family Endocrine Disorder: Yes (DM) Sister Family Member Ethnicity: Non- Living Status: Hx Family Endocrine Disorder: Yes (DM) Infectious Disease-CN:Meds Aspirin 325 mg PO DAILY tablet 08/07/17 [Rx] Atorvastatin [Lipitor] 40 mg PO HS tablet 08/07/17 [Rx] Carvedilol [Coreg] 25 mg PO BIDWM tablet 08/07/17 [Rx] Clopidogrel [Plavix] 75 mg PO DAILY tablet 08/07/17 [Rx] Furosemide [Lasix] 40 mg PO DAILY tablet 08/07/17 [Rx] Lisinopril [Zestril] 2.5 mg PO DAILY tablet 08/07/17 [Rx] Magnesium Oxide [Mag-Ox] 400 mg PO DAILY tablet 08/07/17 [Rx] Nitroglycerin 0.4 mg SL Q5MIN PRN tab.subl 08/07/17 [Rx] Omeprazole [PriLOSEC] 20 mg PO DAILY@0630 capsule.dr 08/07/17 [Rx] OxyCODONE Immed Rel [Roxicodone 5 MG] 10 mg PO Q8HR PRN #10 tablet 08/07/17 [Rx] Potassium Chloride 20 meq PO DAILY tab.er.prt 08/07/17 [Rx] Zinc Sulfate 220 mg PO DAILY capsule 08/07/17 [Rx] amLODIPine [Norvasc] 10 mg PO DAILY tablet 08/07/17 [Rx] Clotrimazole/Betamethasone Dip [Lotrisone Cream] 1 appl TP DAILY 08/15/17 [ History] Collagenase Oint [Santyl] 1 appl TP BID 08/15/17 [History] Insulin LISPRO [HumaLOG] 0 units SQ TID PRN 08/15/17 [History] Levofloxacin 750 MG/150 ML [Levaquin Premix 750mg/150 mL] 750 mg IVPB DAILY 11/30 [History] Melatonin 5 mg PO HS 08/15/17 [History] Vancomycin/0.9 % Sod Chloride [Vanco 1.25 gm/250 ml-0.9% NaCl] 1.25 gm IV DAILY 08/15/17 [History] 3 Allergy/AdvReac Type Severity Reaction Status Date / Time No Known Allergies Allergy Verified 07/03/15 17:42 ROS unobtainable: due to endotracheal tube, due to mental status Exam - Constitutional Vitals: Temp Pulse Resp BP Pulse Ox 97.7 F 73 8 157/78 98 08/22/17 12:35 08/22/17 15:00 08/22/17 15:15 08/22/17 15:15 08/22/17 15:15 General appearance: average body habitus, no acute distress, no febrile - Head Head exam: Present: atraumatic, normal inspection, normocephalic - Eye Eye exam: Present: EOMI, normal appearance, PERRL Pupils: Present: normal accommodation - ENT ENT exam: Present: mucous membranes dry - Neck Neck exam: Present: normal inspection - Respiratory Respiratory exam: Present: decreased breath sounds (throughout). Absent: rales , respiratory distress, rhonchi Additional comments: O2 via ventilator. - Cardiovascular Cardiovascular exam: Present: RRR, +S1, +S2 - GI/Abdominal GI/Abdominal exam: Present: normal bowel sounds, soft. Absent: distended, tenderness Additional comments: Hernandez catheter noted to be draining clear yellow urine. OG tube noted with tube feeds infusing. - Extremities Exam Extremities exam: Present: pedal edema (2+ BLE). Absent: joint swelling, tenderness Additional comments: Bilateral foot dressings C/D/I. - Neurological Exam Neurological exam: Present: alert, no focal deficits Additional comments: Drowsy, but awakens to verbal stimuli. Follows commands. Nods head "yes" when asked if he is in pain and if he wanted a blanket removed. - Skin Skin exam: Present: dry, intact, normal color, warm - Additional findings Additional findings: Left femoral CVC noted. RUE PICC line noted. LUE EPIV noted. Infectious Disease CN: Results - Labs CBC & Chem 7: 08/22/17 04:10 08/22/17 04:10 Cultures: Cultures 08/15/17 01:15 Blood Culture - Final Peripheral Venipuncture No growth. 08/14/17 22:34 Blood Culture - Final Peripheral Venipuncture No growth. 08/17/17 03:51 Sputum Culture - Final Sputum Consult Discharge Plan - Plan Referrals: Poncho Noriega MD [Primary Care Provider] -
[2017-08-22] MEDS ORDERED: Vancomycin 1,500 MG in D5% in Water 250 ML IVPB SCH (16:00)
[2017-08-22] MEDS ORDERED: Vancomycin 1,500 MG in D5% in Water 250 ML IVPB ONE (17:00)
--- NOTE | 2017-08-22 18:31 | Electrocardiograph Report ---
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
[2017-08-22 23:20] LABS: ABG Base Excess 5 mEq/L (-2 to 3); ABG HCO3 31 mEq/L (21-27); ABG Oxygen Saturation 99 % (95-98); ABG PCO2 55 mmHg (35-45); ABG PH 7.36 pH Units (7.32-7.45); ABG PO2 139 mmHg (85-104); ABG TCO2 33 mEq/L (20-26); Blood Gas Modality CPAP/PS; Blood Gas PEEP 5 cm H2O; Blood Gas Pressure Support 8 cm H2O
[2017-08-22] MEDS: *HR* FentaNYL (PF) 100 MCG/2 ML VIAL IVP PRN (23:55)
[2017-08-23] MEDS: Lacri-Lube 3.5 GM TUBE BOTH EYES SCH ×6 (01:37→21:15)
[2017-08-23 04:51] LABS: Immature Granulocytes % 0.5 % (0-4)
[2017-08-23 04:53] LABS: Basophils % 0.2 %; Eosinophils # 0.1 K/mcL (0.0-0.6); Eosinophils % 0.4 %; Hematocrit 23.8 % (37.5-50.1); Hemoglobin 7.3 g/dL (12.9-16.9); Immature Platelets 14.3 % (1.1-6.1); Lymphocytes # 0.7 K/mcL (0.6-4.6); Lymphocytes % 4.2 %; Mean Corpuscular HGB Conc 30.7 g/dL (31.6-35.5); Mean Corpuscular Hemoglobin 28.6 pg (28.0-33.3); Mean Corpuscular Volume 93.3 fL (83.0-100.0); Mean Platelet Volume 12.2 fL (9.4-12.4); Monocytes # 1.4 K/mcL (0.0-1.3); Monocytes % 8.4 %; Neutrophils # 14.2 K/mcL (1.6-8.9); Nucleated Red Blood Cells 0.1 /100 WBC (0); Red Blood Count 2.55 M/mcL (4.19-5.50); Red Cell Distribution Width 17.2 % (11.5-14.5); Segmented Neutrophils % 86.3 %
[2017-08-23 04:59] LABS: Platelet Count 86 K/mcL (140-400)
[2017-08-23 05:12] LABS: INR 1.2; Prothrombin Time 12.6 Seconds (9.4-12.1)
[2017-08-23 05:13] LABS: Ionized Calcium 1.08 mmol/L (1.15-1.35)
[2017-08-23 05:17] LABS: Calcium 8.3 mg/dL (8.6-10.8); Magnesium 2.2 mg/dL (1.6-2.6); Phosphorous 3.7 mg/dL (2.3-4.7)
[2017-08-23 05:23] LABS: Albumin 2.2 g/dL (3.5-5.0); Albumin/Globulin Ratio 0.7 (1.1-2.2); Bilirubin,Direct 0.4 mg/dL (0.0-0.5); Bilirubin,Indirect 0.4 mg/dL (0.0-1.2); Bilirubin,Total 0.8 mg/dL (0.2-1.2); Globulin 3.1 g/dL (2.4-3.5); Total Protein 5.3 g/dL (6.0-8.3)
[2017-08-23] MEDS: Insulin LISPRO 300 UNITS/3 ML VIAL SQ SCH ×5 (05:52→21:15)
[2017-08-23] MEDS: Erythromycin Lactobionate 250 MG in 0.9 % Sodium Chloride 100 ML IVPB SCH ×3 (06:03→20:25)
[2017-08-23] MEDS: *HR* Heparin 5,000 UNIT/ML VIAL SQ SCH ×2 (06:06→13:06)
[2017-08-23] MEDS: Budesonide/Formoterol 160/4.5 MDI IH SCH ×2 (07:49→22:26)
[2017-08-23] MEDS: Piperacillin/Tazobactam 3.375 GM in D5% in Water 50 ML IVPB SCH ×2 (07:52→16:28)
--- NOTE | 2017-08-23 08:46 | Pulmonology Progress Note ---
<Yohana Ocasio - Last Filed: 08/23/17 15:52> Date of Encounter: 08/23/17 Time of Encounter: 08:00 Assessment and Plan (1) Acute respiratory failure Current Visit: Yes Status: Acute -on CPAP (started this morning around 05:30) -decreased pressure support, resulting ABG showed rising CO2--determined patient should remain intubated and on CPAP as he's unlikely to tolerate BiPAP d /t multiple rib fractures -will decrease pressure support again tomorrow morning and see if he's any closer to being liberated from the vent Qualifiers: Respiratory failure complication: hypoxia Qualified Code(s): J96.01 - Acute respiratory failure with hypoxia (2) Cardiac arrest Current Visit: Yes Status: Acute -possibly 2/2 ACS--no invasive management at this time, continue medical management -hemodynamically stable -continue ASA, statin -continue to monitor on tele (3) Septic shock Current Visit: Yes Status: Resolved -possibly d/t aspiration PNA, complicated by b/l diabetic foot ulcers already being treated with IV abx -continue vancomycin (pharm to dose d/t renal function) and zosyn (4) Acute kidney injury Current Visit: Yes Status: Acute -urine output 250 mL so far today -creatinine appears to have plateaued, 2.78 today -nephrology consulted, recommendations appreciated -no indications for dialysis at this time (5) Diabetic ulcer of both feet Current Visit: Yes Status: Chronic -continue IV abx (with pharmacy to dose Vancomycin) -per ID, continue treatment with IV abx until 08/31/17 then d/c abx (unless additional infectious disease identified); will order ESR and CRP -podiatry consulted, recommendations appreciated -ID consulted, recommendations appreciated (6) CAD (coronary artery disease) Current Visit: Yes Status: Chronic -continue statin, ASA -continue tele monitoring Qualifiers: Coronary Disease-Associated Artery/Lesion type: [place] artery [place] vs. transplanted heart: [place] heart Associated angina: without angina Qualified Code(s): I25.10 - Atherosclerotic heart disease of [place] coronary artery without angina pectoris (7) Diabetes Current Visit: Yes Status: Chronic -SSI (Lispro) for glycemic control -continue to monitor glucose and adjust insulin as needed 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 mellitus manager terminal insulin use: without care home use Qualified Code( s): E11.621 - Type 2 diabetes mellitus with foot ulcer; L97.509 - Non-pressure chronic ulcer of other part of unspecified foot with unspecified severity; L97.509 - Non-pressure chronic ulcer of other part of unspecified foot with unspecified severity; L97.509 - Non-pressure chronic ulcer of other part of unspecified foot with unspecified severity; L97.509 - Non-pressure chronic ulcer of other part of unspecified foot with unspecified severity (8) Encephalopathy Current Visit: Yes Status: Acute -head CT stable, no acute intracranial abnormalities (9) DVT prophylaxis Current Visit: Yes Status: Acute -Heparin 5000 units SQ Q8H Subjective Principal diagnosis: Cardiac Arrest Interval history: Seen and examined at bedside this morning. Remains intubated, but CPAP'ing since 05:00 this morning. Patient is alert and communicates with head nodding, hand squeezing. When asked how he feels today, if he feels any better he responds by shaking head "no." Objective PUL Vital signs: Last Vital Signs Temp 96.0 F L 08/23/17 07:29 Pulse 79 08/23/17 07:00 Resp 12 08/23/17 07:49 BP 163/75 08/23/17 07:49 Pulse Ox 100 08/23/17 07:49 General appearance: no acute distress Eyes: nonicteric Effort: normal Auscultation: bilateral: clear Cardiovascular: regular rate and rhythm Gastrointestinal: normoactive bowel sounds, soft, non-distended Extremities: no cyanosis, no clubbing, pulses normal (unable to assess d/t wound dressings), edema (+4 pitting up to level of patella b/l) other (arousable but drowsy appearing; follows some commands) Ventilator Settings Ventilator Settings: Ventilator Settings, Last 8 Hours Ventilator Mode CPAP Ventilator Mode CPAP Ventilator Mode CPAP Ventilator Mode VC+ Ventilator Mode A/C Ventilator Mode VC+ Ventilator Tidal Volume 390 Setting Ventilator Tidal Volume 390 Setting Ventilator Tidal Volume 390 Setting Ventilator Tidal Volume 390 Setting Ventilator Respiratory Rate 12 Setting Ventilator Respiratory Rate 12 Setting Ventilator Respiratory Rate 12 Setting Actual Respiratory Rate 13 Actual Respiratory Rate 15 Actual Respiratory Rate 10 Actual Respiratory Rate 17 Actual Respiratory Rate 16 Actual Respiratory Rate 15 Positive End Expiratory 5 Pressure Positive End Expiratory 5 Pressure Positive End Expiratory 5 Pressure Positive End Expiratory 5 Pressure Positive End Expiratory 5 Pressure Positive End Expiratory 5 Pressure Peak Inspiratory Airway 14 Pressure Peak Inspiratory Airway 21 Pressure Peak Inspiratory Airway 13 Pressure Peak Inspiratory Airway 21 Pressure Peak Inspiratory Airway 26 Pressure Peak Inspiratory Airway 13 Pressure Results - Laboratory Findings CBC and BMP: 08/23/17 04:30 08/23/17 04:30 ABG ABG pH 7.36 pH Units (7.32-7.45) 08/22/17 23:18 ABG pCO2 55 mmHg (35-45) H 08/22/17 23:18 ABG pO2 139 mmHg (85-104) H 08/22/17 23:18 ABG O2 Saturation 99 % (95-98) H 08/22/17 23:18 PT/INR, D-dimer PT 12.6 Seconds (9.4-12.1) H 08/23/17 04:30 Abnormal lab findings: Abnormal lab results WBC 16.5 K/mcL (4.3-11.1) H 08/23/17 04:30 RBC 2.55 M/mcL (4.19-5.50) L 08/23/17 04:30 Hgb 7.3 g/dL (12.9-16.9) L 08/23/17 04:30 Hct 23.8 % (37.5-50.1) L 08/23/17 04:30 MCHC 30.7 g/dL (31.6-35.5) L 08/23/17 04:30 RDW 17.2 % (11.5-14.5) H 08/23/17 04:30 Plt Count 86 K/mcL (140-400) L 08/23/17 04:30 Neutrophils # 14.2 K/mcL (1.6-8.9) H 08/23/17 04:30 Monocytes # 1.4 K/mcL (0.0-1.3) H 08/23/17 04:30 Nucleated RBCs/100 WBC 0.1 /100 WBC (0) H 08/23/17 04:30 Platelet Estimate Decreased (Normal) L 08/20/17 04:45 Immature Plt Fraction 14.3 % (1.1-6.1) H 08/23/17 04:30 PT 12.6 Seconds (9.4-12.1) H 08/23/17 04:30 APTT 58.0 Seconds (26.0-36.0) H 08/17/17 03:51 ABG pCO2 55 mmHg (35-45) H 08/22/17 23:18 ABG pO2 139 mmHg (85-104) H 08/22/17 23:18 ABG HCO3 31 mEq/L (21-27) H 08/22/17 23:18 ABG Total CO2 33 mEq/L (20-26) H 08/22/17 23:18 ABG O2 Saturation 99 % (95-98) H 08/22/17 23:18 ABG Base Excess 5 mEq/L (-2 to 3) H 08/22/17 23:18 Carbon Dioxide 30 mEq/L (19-29) H 08/23/17 04:30 BUN 71 mg/dL (8-26) H 08/23/17 04:30 Creatinine 2.78 mg/dL (0.72-1.25) H 08/23/17 04:30 Est GFR ( Amer) 27 (> 60) L 08/23/17 04:30 Est GFR (Non-Af Amer) 22 (> 60) L 08/23/17 04:30 Glucose 140 mg/dL (70-99) H 08/23/17 04:30 POC Glucose 166 (58-89) H 08/23/17 07:16 Hemoglobin A1c 7.4 % (-5.6) H 08/15/17 05:02 Calculated Osmolality 311 (280-300) H 08/23/17 04:30 Calcium 8.3 mg/dL (8.6-10.8) L 08/23/17 04:30 Ionized Calcium 1.08 mmol/L (1.15-1.35) L 08/23/17 04:30 Troponin I 1.08 ng/mL (0-0.03) H* 08/15/17 12:00 Serum Total Protein 5.3 g/dL (6.0-8.3) L 08/23/17 04:30 Albumin 2.2 g/dL (3.5-5.0) L 08/23/17 04:30 Albumin/Globulin Ratio 0.7 (1.1-2.2) L 08/23/17 04:30 Urine Clarity Turbid (Clear) A 08/14/17 20:57 Urine Protein >=300 mg/dL (Neg-Trace) H 08/14/17 20:57 Urine Ketones Trace mg/dL (Negative) H 08/14/17 20:57 Urine Blood Large (Negative) H 08/14/17 20:57 Ur Leukocyte Esterase Large (Negative) H 08/14/17 20:57 Urine Microscopic RBC TNTC per hpf (0-3) H 08/14/17 20:57 Urine Microscopic WBC TNTC per hpf (0-3) H 08/14/17 20:57 Urine Yeast Few per hpf (None Seen) H 08/14/17 20:57 Ur Culture Indicated? YES (NO) A 08/14/17 20:57 Vancomycin Trough 39.8 mcg/mL (10-20) H* 08/16/17 21:05 - Clinical Findings Intake & Output: Intake & Output 08/22/17 08/23/17 08/23/17 23:59 07:59 15:59 Intake Total 938 / 938 701 / 701 Output Total 400 / 400 800 / 800 Balance 538 / 538 -99 / -99 Weight 92.5 kg Consult Discharge Plan - Plan Referrals: Poncho Noriega MD [Primary Care Provider] - <Ronit James S - Last Filed: 08/23/17 19:48> Date of Encounter: 08/23/17 Objective PUL Vital signs: Last Vital Signs Temp 97.7 F 08/23/17 15:50 Pulse 82 08/23/17 18:09 Resp 14 08/23/17 18:09 BP 167/77 08/23/17 18:09 Pulse Ox 99 08/23/17 18:09 Ventilator Settings Ventilator Settings: Ventilator Settings, Last 8 Hours Ventilator Mode CPAP Ventilator Mode CPAP Ventilator Mode CPAP Ventilator Mode CPAP Ventilator Mode CPAP Ventilator Mode CPAP Ventilator Mode CPAP Ventilator Mode CPAP Ventilator Mode CPAP Ventilator Mode CPAP Ventilator Mode CPAP Actual Respiratory Rate 14 Actual Respiratory Rate 14 Actual Respiratory Rate 17 Actual Respiratory Rate 14 Actual Respiratory Rate 14 Actual Respiratory Rate 16 Actual Respiratory Rate 10 Actual Respiratory Rate 14 Actual Respiratory Rate 12 Actual Respiratory Rate 10 Actual Respiratory Rate 12 Positive End Expiratory 5 Pressure Positive End Expiratory 5 Pressure Positive End Expiratory 5 Pressure Positive End Expiratory 5 Pressure Positive End Expiratory 5 Pressure Positive End Expiratory 5 Pressure Positive End Expiratory 5 Pressure Positive End Expiratory 5 Pressure Positive End Expiratory 5 Pressure Positive End Expiratory 5 Pressure Positive End Expiratory 5 Pressure Peak Inspiratory Airway 14 Pressure Peak Inspiratory Airway 14 Pressure Peak Inspiratory Airway 14 Pressure Peak Inspiratory Airway 14 Pressure Peak Inspiratory Airway 14 Pressure Peak Inspiratory Airway 13 Pressure Peak Inspiratory Airway 13 Pressure Peak Inspiratory Airway 14 Pressure Results - Laboratory Findings CBC and BMP: 08/23/17 04:30 08/23/17 04:30 ABG ABG pH 7.34 pH Units (7.32-7.45) 08/23/17 10:51 ABG pCO2 61 mmHg (35-45) H 08/23/17 10:51 ABG pO2 152 mmHg (85-104) H 08/23/17 10:51 ABG O2 Saturation 99 % (95-98) H 08/23/17 10:51 PT/INR, D-dimer PT 12.6 Seconds (9.4-12.1) H 08/23/17 04:30 Abnormal lab findings: Abnormal lab results WBC 16.5 K/mcL (4.3-11.1) H 08/23/17 04:30 RBC 2.55 M/mcL (4.19-5.50) L 08/23/17 04:30 Hgb 7.3 g/dL (12.9-16.9) L 08/23/17 04:30 Hct 23.8 % (37.5-50.1) L 08/23/17 04:30 MCHC 30.7 g/dL (31.6-35.5) L 08/23/17 04:30 RDW 17.2 % (11.5-14.5) H 08/23/17 04:30 Plt Count 86 K/mcL (140-400) L 08/23/17 04:30 Neutrophils # 14.2 K/mcL (1.6-8.9) H 08/23/17 04:30 Monocytes # 1.4 K/mcL (0.0-1.3) H 08/23/17 04:30 Nucleated RBCs/100 WBC 0.1 /100 WBC (0) H 08/23/17 04:30 Platelet Estimate Decreased (Normal) L 08/20/17 04:45 Immature Plt Fraction 14.3 % (1.1-6.1) H 08/23/17 04:30 PT 12.6 Seconds (9.4-12.1) H 08/23/17 04:30 APTT 58.0 Seconds (26.0-36.0) H 08/17/17 03:51 ABG pCO2 61 mmHg (35-45) H 08/23/17 10:51 ABG pO2 152 mmHg (85-104) H 08/23/17 10:51 ABG HCO3 33 mEq/L (21-27) H 08/23/17 10:51 ABG Total CO2 35 mEq/L (20-26) H 08/23/17 10:51 ABG O2 Saturation 99 % (95-98) H 08/23/17 10:51 ABG Base Excess 6 mEq/L (-2 to 3) H 08/23/17 10:51 Carbon Dioxide 30 mEq/L (19-29) H 08/23/17 04:30 BUN 71 mg/dL (8-26) H 08/23/17 04:30 Creatinine 2.78 mg/dL (0.72-1.25) H 08/23/17 04:30 Est GFR ( Amer) 27 (> 60) L 08/23/17 04:30 Est GFR (Non-Af Amer) 22 (> 60) L 08/23/17 04:30 Glucose 140 mg/dL (70-99) H 08/23/17 04:30 POC Glucose 209 (58-89) H 08/23/17 15:26 Hemoglobin A1c 7.4 % (-5.6) H 08/15/17 05:02 Calculated Osmolality 311 (280-300) H 08/23/17 04:30 Calcium 8.3 mg/dL (8.6-10.8) L 08/23/17 04:30 Ionized Calcium 1.06 mmol/L (1.15-1.35) L 08/23/17 13:48 Troponin I 1.08 ng/mL (0-0.03) H* 08/15/17 12:00 Serum Total Protein 5.3 g/dL (6.0-8.3) L 08/23/17 04:30 Albumin 2.2 g/dL (3.5-5.0) L 08/23/17 04:30 Albumin/Globulin Ratio 0.7 (1.1-2.2) L 08/23/17 04:30 Urine Clarity Turbid (Clear) A 08/14/17 20:57 Urine Protein >=300 mg/dL (Neg-Trace) H 08/14/17 20:57 Urine Ketones Trace mg/dL (Negative) H 08/14/17 20:57 Urine Blood Large (Negative) H 08/14/17 20:57 Ur Leukocyte Esterase Large (Negative) H 08/14/17 20:57 Urine Microscopic RBC TNTC per hpf (0-3) H 08/14/17 20:57 Urine Microscopic WBC TNTC per hpf (0-3) H 08/14/17 20:57 Urine Yeast Few per hpf (None Seen) H 08/14/17 20:57 Ur Culture Indicated? YES (NO) A 08/14/17 20:57 Vancomycin Trough 39.8 mcg/mL (10-20) H* 08/16/17 21:05 - Clinical Findings Intake & Output: Intake & Output 08/23/17 08/23/17 08/23/17 07:59 15:59 23:59 Intake Total 701 / 701 803 / 803 Output Total 800 / 800 300 / 300 Balance -99 / -99 503 / 503 Weight 92.5 kg - Attending Attestation I saw the patient with the resident agree with History and Physical exam findings. Labs and Radiology were reviewed Ventilator data were reviewed PROCEDURAL NURSE: Patient is intubated following commands is on intermittent opioids NECK : No JVD appreciated Pulmonary : Patient has hypoxic respiratory failure secondary to fluid overload with bilateral pleural effusion will continue diuresis with no much secretions from endotracheal tube low probability for pneumonia .Tried SBT with minimal pressure support of 5 as patient wont be a BIPAP candidate when extubated gas exchange after 2 hrs of SBT showed worsened acute on chronic hypercarbia cannot be extubated without BIPAP support will give another night . To continue CPAP/ PS will flip him to AC in the night. Cardiac : Hemodynamicaly stable , OH no invasive intervention for now Nutrition/GI: Patient is on tube feeds, PPI prophylaxis Renal : Renal labs reviewed , output reviewed , Nephrology is following ok for Albumin and Lasix will continue keep diuresing Heme onc : No acute issues ID : To continue Broad spectrum antibiotics , consulted ID for care home antibiotics for his osteomyelitis according to recommendation to start back on Vancomycin renally dosed.Patient Vancomycin is supratherapuetic will continue Zosyn . Musculo skeletal / skin issues : No acute issues Disposition : Critically ill Code status: DNRA Family/POA: Son Spent 35 minutes of Critical care time in making decisions to support vital organ function and prevent further decline. Patient continue to have ongoing critical care needs.
[2017-08-23] MEDS: Chlorhexidine Rinse 15 ML MOUTHWASH MM SCH ×2 (08:47→20:26)
[2017-08-23] MEDS: Pantoprazole 40 MG VIAL IVP SCH (08:47)
[2017-08-23] MEDS: Aspirin 81 MG TAB.CHEW PO SCH (08:47)
--- NOTE | 2017-08-23 08:53 | Palliative Progress Note ---
<Santos Bird - Last Filed: 08/23/17 08:50> Date of Encounter: 08/23/17 Time of Encounter: 08:50 - Assessment and plan (1) Goals of care, counseling/discussion Current Visit: Yes Status: Acute Assessment and plan: DNR-CCA successful cpap throughout last night and this morning will be extubated today currently patient would be reintubated if necessary will require SNF for discharge (2) Cardiac arrest Current Visit: Yes Status: Acute Assessment and plan: Witnessed cardiac arrest patient now intubated not sedated BP stable plan as per primary (3) Acute kidney injury Current Visit: Yes Status: Acute Assessment and plan: 2nd to cardiopulmonary arrest, anemia, vacomycin improving increased urine output nephrology consulted (4) Diabetic ulcer of both feet Current Visit: Yes Status: Chronic Assessment and plan: being treated for MRSA, enterococuss, proteus mirabilis, and klebsiella infection on zosyn and ID recommends add vancomycin wound are on board. (5) Broken ribs Current Visit: Yes Status: Acute Assessment and plan: 2nd to cpr multiple broken ribs fentanyl drip changed to IVP Qualifiers: Encounter type: initial encounter Rib fracture type: multiple ribs Fracture type: closed Laterality: bilateral Qualified Code(s): S22.43XA - Multiple fractures of ribs, bilateral, initial encounter for closed fracture - Time Spent With Patient Total time spent is greater than 50% in coordination of care (as documented) at patient's floor/unit and/or counseling patient: - Subjective Interval history: Intubated now day 9. Successful CPAP throughout the night and this morning. Plan to extubate today. - Constitutional Vitals: Abnormal lab results WBC 16.5 K/mcL (4.3-11.1) H 08/23/17 04:30 RBC 2.55 M/mcL (4.19-5.50) L 08/23/17 04:30 Hgb 7.3 g/dL (12.9-16.9) L 08/23/17 04:30 Hct 23.8 % (37.5-50.1) L 08/23/17 04:30 MCHC 30.7 g/dL (31.6-35.5) L 08/23/17 04:30 RDW 17.2 % (11.5-14.5) H 08/23/17 04:30 Plt Count 86 K/mcL (140-400) L 08/23/17 04:30 Neutrophils # 14.2 K/mcL (1.6-8.9) H 08/23/17 04:30 Monocytes # 1.4 K/mcL (0.0-1.3) H 08/23/17 04:30 Nucleated RBCs/100 WBC 0.1 /100 WBC (0) H 08/23/17 04:30 Platelet Estimate Decreased (Normal) L 08/20/17 04:45 Immature Plt Fraction 14.3 % (1.1-6.1) H 08/23/17 04:30 PT 12.6 Seconds (9.4-12.1) H 08/23/17 04:30 APTT 58.0 Seconds (26.0-36.0) H 08/17/17 03:51 ABG pCO2 55 mmHg (35-45) H 08/22/17 23:18 ABG pO2 139 mmHg (85-104) H 08/22/17 23:18 ABG HCO3 31 mEq/L (21-27) H 08/22/17 23:18 ABG Total CO2 33 mEq/L (20-26) H 08/22/17 23:18 ABG O2 Saturation 99 % (95-98) H 08/22/17 23:18 ABG Base Excess 5 mEq/L (-2 to 3) H 08/22/17 23:18 Carbon Dioxide 30 mEq/L (19-29) H 08/23/17 04:30 BUN 71 mg/dL (8-26) H 08/23/17 04:30 Creatinine 2.78 mg/dL (0.72-1.25) H 08/23/17 04:30 Est GFR ( Amer) 27 (> 60) L 08/23/17 04:30 Est GFR (Non-Af Amer) 22 (> 60) L 08/23/17 04:30 Glucose 140 mg/dL (70-99) H 08/23/17 04:30 POC Glucose 166 (58-89) H 08/23/17 07:16 Hemoglobin A1c 7.4 % (-5.6) H 08/15/17 05:02 Calculated Osmolality 311 (280-300) H 08/23/17 04:30 Calcium 8.3 mg/dL (8.6-10.8) L 08/23/17 04:30 Ionized Calcium 1.08 mmol/L (1.15-1.35) L 08/23/17 04:30 Troponin I 1.08 ng/mL (0-0.03) H* 08/15/17 12:00 Serum Total Protein 5.3 g/dL (6.0-8.3) L 08/23/17 04:30 Albumin 2.2 g/dL (3.5-5.0) L 08/23/17 04:30 Albumin/Globulin Ratio 0.7 (1.1-2.2) L 08/23/17 04:30 Urine Clarity Turbid (Clear) A 08/14/17 20:57 Urine Protein >=300 mg/dL (Neg-Trace) H 08/14/17 20:57 Urine Ketones Trace mg/dL (Negative) H 08/14/17 20:57 Urine Blood Large (Negative) H 08/14/17 20:57 Ur Leukocyte Esterase Large (Negative) H 08/14/17 20:57 Urine Microscopic RBC TNTC per hpf (0-3) H 08/14/17 20:57 Urine Microscopic WBC TNTC per hpf (0-3) H 08/14/17 20:57 Urine Yeast Few per hpf (None Seen) H 08/14/17 20:57 Ur Culture Indicated? YES (NO) A 08/14/17 20:57 Vancomycin Trough 39.8 mcg/mL (10-20) H* 08/16/17 21:05 - Additional findings Additional findings: General: intubated, eyes open Eyes: reactive to light Heart: sinus rhythm Lungs: clear anteriorly Abdomen: Soft nontender, nondistended absent bowel sounds Skin: cool, dry Extremities: 2+ pedal edema Neuro: alert, opens eye delayed/sluggish with verbal stimulation, nodding when asking questions Palliative Quality Palliative Quality: Screen for Code Status: Yes, Screen for Goals of Care: Yes, Screen for Pain: No, If Pain Regimen Started, Initiate Bowel Regimen: Yes, Screen for Nausea/Vomitting: No Code Status: 08/15/17 00:52 Resuscitation Status: Active [RES] Routine Comment: Resuscitation Status: Full Code 08/18/17 11:42 CODE [Resuscitation Status: Active] [RES] Routine Comment: Resuscitation Status: DNR-Comfort Care-Arrest - Labs CBC & Chem 7: 08/23/17 04:30 08/23/17 04:30 Labs: Laboratory Results - last 24 hr 08/22/17 08/22/17 08/22/17 10:58 14:12 15:04 WBC RBC Hgb Hct MCV MCH MCHC RDW Plt Count MPV Immature Gran % Seg Neutrophils % Lymphocytes % Monocytes % Eosinophils % Basophils % Neutrophils # Lymphocytes # Monocytes # Eosinophils # Basophils # Nucleated RBCs/100 WBC Immature Plt Fraction PT INR Sample Site R Brach ABG pH 7.37 ABG pCO2 53 H ABG pO2 121 H ABG HCO3 30 H ABG Total CO2 32 H ABG O2 Saturation 99 H ABG Base Excess 4 H Esteban Test Respiration Rate 12 O2 Delivery Device Adult Vent Blood Gas Modality ASSIST CONTROL Inspired O2 45.0 Tidal Volume 380 PEEP Pressure Support Sodium Potassium Chloride Carbon Dioxide BUN Creatinine Est GFR ( Amer) Est GFR (Non-Af Amer) BUN/Creatinine Ratio Glucose POC Glucose 140 H Calculated Osmolality Calcium Ionized Calcium 1.07 L Phosphorus Magnesium 2.2 Total Bilirubin Direct Bilirubin Indirect Bilirubin AST ALT Alkaline Phosphatase Serum Total Protein Albumin Globulin Albumin/Globulin Ratio Random Vancomycin 08/22/17 08/22/17 08/22/17 15:33 19:29 23:18 WBC RBC Hgb Hct MCV MCH MCHC RDW Plt Count MPV Immature Gran % Seg Neutrophils % Lymphocytes % Monocytes % Eosinophils % Basophils % Neutrophils # Lymphocytes # Monocytes # Eosinophils # Basophils # Nucleated RBCs/100 WBC Immature Plt Fraction PT INR Sample Site R Radial ABG pH 7.36 ABG pCO2 55 H ABG pO2 139 H ABG HCO3 31 H ABG Total CO2 33 H ABG O2 Saturation 99 H ABG Base Excess 5 H Esteban Test N/A Respiration Rate O2 Delivery Device Adult Vent Blood Gas Modality CPAP/PS Inspired O2 45.0 Tidal Volume PEEP 5 Pressure Support 8 Sodium Potassium Chloride Carbon Dioxide BUN Creatinine Est GFR ( Amer) Est GFR (Non-Af Amer) BUN/Creatinine Ratio Glucose POC Glucose 192 H 199 H Calculated Osmolality Calcium Ionized Calcium Phosphorus Magnesium Total Bilirubin Direct Bilirubin Indirect Bilirubin AST ALT Alkaline Phosphatase Serum Total Protein Albumin Globulin Albumin/Globulin Ratio Random Vancomycin 08/22/17 08/23/17 08/23/17 23:49 00:05 04:30 WBC 16.5 H RBC 2.55 L Hgb 7.3 L Hct 23.8 L MCV 93.3 MCH 28.6 MCHC 30.7 L RDW 17.2 H Plt Count 86 L MPV 12.2 Immature Gran % 0.5 Seg Neutrophils % 86.3 Lymphocytes % 4.2 Monocytes % 8.4 Eosinophils % 0.4 Basophils % 0.2 Neutrophils # 14.2 H Lymphocytes # 0.7 Monocytes # 1.4 H Eosinophils # 0.1 Basophils # 0.0 Nucleated RBCs/100 WBC 0.1 H Immature Plt Fraction 14.3 H PT INR Sample Site ABG pH ABG pCO2 ABG pO2 ABG HCO3 ABG Total CO2 ABG O2 Saturation ABG Base Excess Esteban Test Respiration Rate O2 Delivery Device Blood Gas Modality Inspired O2 Tidal Volume PEEP Pressure Support Sodium Potassium Chloride Carbon Dioxide BUN Creatinine Est GFR ( Amer) Est GFR (Non-Af Amer) BUN/Creatinine Ratio Glucose POC Glucose 187 H Calculated Osmolality Calcium Ionized Calcium 1.07 L Phosphorus Magnesium Total Bilirubin Direct Bilirubin Indirect Bilirubin AST ALT Alkaline Phosphatase Serum Total Protein Albumin Globulin Albumin/Globulin Ratio Random Vancomycin 08/23/17 08/23/17 08/23/17 04:30 04:30 04:30 WBC RBC Hgb Hct MCV MCH MCHC RDW Plt Count MPV Immature Gran % Seg Neutrophils % Lymphocytes % Monocytes % Eosinophils % Basophils % Neutrophils # Lymphocytes # Monocytes # Eosinophils # Basophils # Nucleated RBCs/100 WBC Immature Plt Fraction PT 12.6 H INR 1.2 Sample Site ABG pH ABG pCO2 ABG pO2 ABG HCO3 ABG Total CO2 ABG O2 Saturation ABG Base Excess Esteban Test Respiration Rate O2 Delivery Device Blood Gas Modality Inspired O2 Tidal Volume PEEP Pressure Support Sodium 139 Potassium 4.0 Chloride 102 Carbon Dioxide 30 H BUN 71 H Creatinine 2.78 H Est GFR ( Amer) 27 L Est GFR (Non-Af Amer) 22 L BUN/Creatinine Ratio 26 Glucose 140 H POC Glucose Calculated Osmolality 311 H Calcium 8.3 L Ionized Calcium 1.08 L Phosphorus 3.7 Magnesium 2.2 Total Bilirubin 0.8 Direct Bilirubin 0.4 Indirect Bilirubin 0.4 AST 26 ALT 24 Alkaline Phosphatase 118 Serum Total Protein 5.3 L Albumin 2.2 L Globulin 3.1 Albumin/Globulin Ratio 0.7 L Random Vancomycin 08/23/17 08/23/17 04:30 07:16 WBC RBC Hgb Hct MCV MCH MCHC RDW Plt Count MPV Immature Gran % Seg Neutrophils % Lymphocytes % Monocytes % Eosinophils % Basophils % Neutrophils # Lymphocytes # Monocytes # Eosinophils # Basophils # Nucleated RBCs/100 WBC Immature Plt Fraction PT INR Sample Site ABG pH ABG pCO2 ABG pO2 ABG HCO3 ABG Total CO2 ABG O2 Saturation ABG Base Excess Esteban Test Respiration Rate O2 Delivery Device Blood Gas Modality Inspired O2 Tidal Volume PEEP Pressure Support Sodium Potassium Chloride Carbon Dioxide BUN Creatinine Est GFR ( Amer) Est GFR (Non-Af Amer) BUN/Creatinine Ratio Glucose POC Glucose 166 H Calculated Osmolality Calcium Ionized Calcium Phosphorus Magnesium Total Bilirubin Direct Bilirubin Indirect Bilirubin AST ALT Alkaline Phosphatase Serum Total Protein Albumin Globulin Albumin/Globulin Ratio Random Vancomycin 34.6 - Impressions Impressions Chest X-Ray 08/22/17 07:32 IMPRESSION: Persistent bilateral pleural effusions and patchy airspace opacities, mildly improved given differences in modality from prior CTA chest 08/15/2017. D/ / 08/22/2017 08:24:43 Jose Ward MD / christian Interpreting Provider: Jose Ward MD - ABG Interpretation ABG results: ABG ABG pH 7.36 pH Units (7.32-7.45) 08/22/17 23:18 ABG pCO2 55 mmHg (35-45) H 08/22/17 23:18 ABG pO2 139 mmHg (85-104) H 08/22/17 23:18 ABG O2 Saturation 99 % (95-98) H 08/22/17 23:18 PT/INR, D-dimer PT 12.6 Seconds (9.4-12.1) H 08/23/17 04:30 Consult Discharge Plan - Plan Referrals: Poncho Noriega MD [Primary Care Provider] - <Juwan Hennessy - Last Filed: 08/23/17 09:03> Date of Encounter: 08/23/17 - Time Spent With Patient Total time spent is greater than 50% in coordination of care (as documented) at patient's floor/unit and/or counseling patient: - Constitutional Vitals: Abnormal lab results WBC 16.5 K/mcL (4.3-11.1) H 08/23/17 04:30 RBC 2.55 M/mcL (4.19-5.50) L 08/23/17 04:30 Hgb 7.3 g/dL (12.9-16.9) L 08/23/17 04:30 Hct 23.8 % (37.5-50.1) L 08/23/17 04:30 MCHC 30.7 g/dL (31.6-35.5) L 08/23/17 04:30 RDW 17.2 % (11.5-14.5) H 08/23/17 04:30 Plt Count 86 K/mcL (140-400) L 08/23/17 04:30 Neutrophils # 14.2 K/mcL (1.6-8.9) H 08/23/17 04:30 Monocytes # 1.4 K/mcL (0.0-1.3) H 08/23/17 04:30 Nucleated RBCs/100 WBC 0.1 /100 WBC (0) H 08/23/17 04:30 Platelet Estimate Decreased (Normal) L 08/20/17 04:45 Immature Plt Fraction 14.3 % (1.1-6.1) H 08/23/17 04:30 PT 12.6 Seconds (9.4-12.1) H 08/23/17 04:30 APTT 58.0 Seconds (26.0-36.0) H 08/17/17 03:51 ABG pCO2 55 mmHg (35-45) H 08/22/17 23:18 ABG pO2 139 mmHg (85-104) H 08/22/17 23:18 ABG HCO3 31 mEq/L (21-27) H 08/22/17 23:18 ABG Total CO2 33 mEq/L (20-26) H 08/22/17 23:18 ABG O2 Saturation 99 % (95-98) H 08/22/17 23:18 ABG Base Excess 5 mEq/L (-2 to 3) H 08/22/17 23:18 Carbon Dioxide 30 mEq/L (19-29) H 08/23/17 04:30 BUN 71 mg/dL (8-26) H 08/23/17 04:30 Creatinine 2.78 mg/dL (0.72-1.25) H 08/23/17 04:30 Est GFR ( Amer) 27 (> 60) L 08/23/17 04:30 Est GFR (Non-Af Amer) 22 (> 60) L 08/23/17 04:30 Glucose 140 mg/dL (70-99) H 08/23/17 04:30 POC Glucose 166 (58-89) H 08/23/17 07:16 Hemoglobin A1c 7.4 % (-5.6) H 08/15/17 05:02 Calculated Osmolality 311 (280-300) H 08/23/17 04:30 Calcium 8.3 mg/dL (8.6-10.8) L 08/23/17 04:30 Ionized Calcium 1.08 mmol/L (1.15-1.35) L 08/23/17 04:30 Troponin I 1.08 ng/mL (0-0.03) H* 08/15/17 12:00 Serum Total Protein 5.3 g/dL (6.0-8.3) L 08/23/17 04:30 Albumin 2.2 g/dL (3.5-5.0) L 08/23/17 04:30 Albumin/Globulin Ratio 0.7 (1.1-2.2) L 08/23/17 04:30 Urine Clarity Turbid (Clear) A 08/14/17 20:57 Urine Protein >=300 mg/dL (Neg-Trace) H 08/14/17 20:57 Urine Ketones Trace mg/dL (Negative) H 08/14/17 20:57 Urine Blood Large (Negative) H 08/14/17 20:57 Ur Leukocyte Esterase Large (Negative) H 08/14/17 20:57 Urine Microscopic RBC TNTC per hpf (0-3) H 08/14/17 20:57 Urine Microscopic WBC TNTC per hpf (0-3) H 08/14/17 20:57 Urine Yeast Few per hpf (None Seen) H 08/14/17 20:57 Ur Culture Indicated? YES (NO) A 08/14/17 20:57 Vancomycin Trough 39.8 mcg/mL (10-20) H* 08/16/17 21:05 - Attending Attestation I examined this patient and my medical decision-making was reviewed with the Resident Physician. I agree with the documented findings, disposition and treatment plan as described except to the extent set forth below. Palliative Quality Code Status: 08/15/17 00:52 Resuscitation Status: Active [RES] Routine Comment: Resuscitation Status: Full Code 08/18/17 11:42 CODE [Resuscitation Status: Active] [RES] Routine Comment: Resuscitation Status: DNR-Comfort Care-Arrest - Labs CBC & Chem 7: 08/23/17 04:30 08/23/17 04:30 Labs: Laboratory Results - last 24 hr 08/22/17 08/22/17 08/22/17 10:58 14:12 15:04 WBC RBC Hgb Hct MCV MCH MCHC RDW Plt Count MPV Immature Gran % Seg Neutrophils % Lymphocytes % Monocytes % Eosinophils % Basophils % Neutrophils # Lymphocytes # Monocytes # Eosinophils # Basophils # Nucleated RBCs/100 WBC Immature Plt Fraction PT INR Sample Site R Brach ABG pH 7.37 ABG pCO2 53 H ABG pO2 121 H ABG HCO3 30 H ABG Total CO2 32 H ABG O2 Saturation 99 H ABG Base Excess 4 H Esteban Test Respiration Rate 12 O2 Delivery Device Adult Vent Blood Gas Modality ASSIST CONTROL Inspired O2 45.0 Tidal Volume 380 PEEP Pressure Support Sodium Potassium Chloride Carbon Dioxide BUN Creatinine Est GFR ( Amer) Est GFR (Non-Af Amer) BUN/Creatinine Ratio Glucose POC Glucose 140 H Calculated Osmolality Calcium Ionized Calcium 1.07 L Phosphorus Magnesium 2.2 Total Bilirubin Direct Bilirubin Indirect Bilirubin AST ALT Alkaline Phosphatase Serum Total Protein Albumin Globulin Albumin/Globulin Ratio Random Vancomycin 08/22/17 08/22/17 08/22/17 15:33 19:29 23:18 WBC RBC Hgb Hct MCV MCH MCHC RDW Plt Count MPV Immature Gran % Seg Neutrophils % Lymphocytes % Monocytes % Eosinophils % Basophils % Neutrophils # Lymphocytes # Monocytes # Eosinophils # Basophils # Nucleated RBCs/100 WBC Immature Plt Fraction PT INR Sample Site R Radial ABG pH 7.36 ABG pCO2 55 H ABG pO2 139 H ABG HCO3 31 H ABG Total CO2 33 H ABG O2 Saturation 99 H ABG Base Excess 5 H Esteban Test N/A Respiration Rate O2 Delivery Device Adult Vent Blood Gas Modality CPAP/PS Inspired O2 45.0 Tidal Volume PEEP 5 Pressure Support 8 Sodium Potassium Chloride Carbon Dioxide BUN Creatinine Est GFR ( Amer) Est GFR (Non-Af Amer) BUN/Creatinine Ratio Glucose POC Glucose 192 H 199 H Calculated Osmolality Calcium Ionized Calcium Phosphorus Magnesium Total Bilirubin Direct Bilirubin Indirect Bilirubin AST ALT Alkaline Phosphatase Serum Total Protein Albumin Globulin Albumin/Globulin Ratio Random Vancomycin 08/22/17 08/23/17 08/23/17 23:49 00:05 04:30 WBC 16.5 H RBC 2.55 L Hgb 7.3 L Hct 23.8 L MCV 93.3 MCH 28.6 MCHC 30.7 L RDW 17.2 H Plt Count 86 L MPV 12.2 Immature Gran % 0.5 Seg Neutrophils % 86.3 Lymphocytes % 4.2 Monocytes % 8.4 Eosinophils % 0.4 Basophils % 0.2 Neutrophils # 14.2 H Lymphocytes # 0.7 Monocytes # 1.4 H Eosinophils # 0.1 Basophils # 0.0 Nucleated RBCs/100 WBC 0.1 H Immature Plt Fraction 14.3 H PT INR Sample Site ABG pH ABG pCO2 ABG pO2 ABG HCO3 ABG Total CO2 ABG O2 Saturation ABG Base Excess Esteban Test Respiration Rate O2 Delivery Device Blood Gas Modality Inspired O2 Tidal Volume PEEP Pressure Support Sodium Potassium Chloride Carbon Dioxide BUN Creatinine Est GFR ( Amer) Est GFR (Non-Af Amer) BUN/Creatinine Ratio Glucose POC Glucose 187 H Calculated Osmolality Calcium Ionized Calcium 1.07 L Phosphorus Magnesium Total Bilirubin Direct Bilirubin Indirect Bilirubin AST ALT Alkaline Phosphatase Serum Total Protein Albumin Globulin Albumin/Globulin Ratio Random Vancomycin 08/23/17 08/23/17 08/23/17 04:30 04:30 04:30 WBC RBC Hgb Hct MCV MCH MCHC RDW Plt Count MPV Immature Gran % Seg Neutrophils % Lymphocytes % Monocytes % Eosinophils % Basophils % Neutrophils # Lymphocytes # Monocytes # Eosinophils # Basophils # Nucleated RBCs/100 WBC Immature Plt Fraction PT 12.6 H INR 1.2 Sample Site ABG pH ABG pCO2 ABG pO2 ABG HCO3 ABG Total CO2 ABG O2 Saturation ABG Base Excess Esteban Test Respiration Rate O2 Delivery Device Blood Gas Modality Inspired O2 Tidal Volume PEEP Pressure Support Sodium 139 Potassium 4.0 Chloride 102 Carbon Dioxide 30 H BUN 71 H Creatinine 2.78 H Est GFR ( Amer) 27 L Est GFR (Non-Af Amer) 22 L BUN/Creatinine Ratio 26 Glucose 140 H POC Glucose Calculated Osmolality 311 H Calcium 8.3 L Ionized Calcium 1.08 L Phosphorus 3.7 Magnesium 2.2 Total Bilirubin 0.8 Direct Bilirubin 0.4 Indirect Bilirubin 0.4 AST 26 ALT 24 Alkaline Phosphatase 118 Serum Total Protein 5.3 L Albumin 2.2 L Globulin 3.1 Albumin/Globulin Ratio 0.7 L Random Vancomycin 08/23/17 08/23/17 04:30 07:16 WBC RBC Hgb Hct MCV MCH MCHC RDW Plt Count MPV Immature Gran % Seg Neutrophils % Lymphocytes % Monocytes % Eosinophils % Basophils % Neutrophils # Lymphocytes # Monocytes # Eosinophils # Basophils # Nucleated RBCs/100 WBC Immature Plt Fraction PT INR Sample Site ABG pH ABG pCO2 ABG pO2 ABG HCO3 ABG Total CO2 ABG O2 Saturation ABG Base Excess Esteban Test Respiration Rate O2 Delivery Device Blood Gas Modality Inspired O2 Tidal Volume PEEP Pressure Support Sodium Potassium Chloride Carbon Dioxide BUN Creatinine Est GFR ( Amer) Est GFR (Non-Af Amer) BUN/Creatinine Ratio Glucose POC Glucose 166 H Calculated Osmolality Calcium Ionized Calcium Phosphorus Magnesium Total Bilirubin Direct Bilirubin Indirect Bilirubin AST ALT Alkaline Phosphatase Serum Total Protein Albumin Globulin Albumin/Globulin Ratio Random Vancomycin 34.6 - Impressions Impressions Chest X-Ray 08/22/17 07:32
--- NOTE | 2017-08-23 09:30 | Nephrology Progress Note ---
Date of Encounter: 08/23/17 Time of Encounter: 08:55 - Assessment and Plan (1) Acute kidney injury Current Visit: Yes Status: Acute YUMIKO in setting of cardiac arrest, hypovolemia, Vanc toxicity. Will monitor, no immediate need for dialysis. Avoid nephrotoxins. Documented urine output 575cc last 24 hours with Albumin and following IV Lasix. Subjective Principal diagnosis: Cardiac Arrest Interval history: Intubated, successful CPAP throughout night, with plans to extubate today. Objective - Vital Signs Vital signs: Vital Signs Temp Pulse Resp BP Pulse Ox 08/23/17 09:22 11 115/67 98 08/23/17 07:49 12 163/75 100 08/23/17 07:29 96.0 F L 08/23/17 07:00 79 15 162/75 98 08/23/17 06:00 68 14 141/65 100 08/23/17 05:39 10 100 08/23/17 05:10 97.4 F L 08/23/17 04:29 17 100 08/23/17 04:00 68 16 149/69 100 08/23/17 03:00 61 16 144/71 100 08/23/17 02:10 14 100 08/23/17 02:00 60 16 140/70 100 08/23/17 01:00 64 15 133/65 100 08/23/17 00:17 97.5 F L 08/23/17 00:00 64 20 128/66 100 08/22/17 23:21 16 99 08/22/17 23:00 65 9 137/62 99 08/22/17 22:20 9 99 08/22/17 22:00 66 8 144/67 99 08/22/17 21:00 70 8 152/72 99 08/22/17 20:30 72 08/22/17 20:00 65 8 137/62 99 08/22/17 19:58 98 F 08/22/17 19:53 8 98 08/22/17 19:00 66 8 141/63 98 08/22/17 18:00 70 8 139/65 98 08/22/17 17:08 9 140/61 98 08/22/17 17:00 72 8 138/67 98 08/22/17 16:20 97.8 F 08/22/17 16:00 81 10 135/60 98 08/22/17 15:15 8 157/78 98 08/22/17 15:00 73 11 157/78 98 08/22/17 14:27 100 08/22/17 14:00 65 14 153/72 99 08/22/17 13:24 15 148/68 99 08/22/17 13:00 65 14 148/68 99 08/22/17 12:35 97.7 F 08/22/17 12:00 63 15 145/69 99 08/22/17 11:10 14 97 08/22/17 11:00 64 14 139/69 99 08/22/17 10:00 65 13 154/74 98 08/22/17 09:30 16 98 Intake and Output 08/22/17 08/23/17 08/23/17 23:59 07:59 15:59 Intake Total 938 / 938 701 / 701 Output Total 400 / 400 800 / 800 Balance 538 / 538 -99 / -99 Intake: IV Fluids 460 / 460 210 / 210 Calcium Gluconate 1,000 MG In 0 60 / 60 60 / 60 .9 % Sodium Chloride 50 ML @ 30 mls/hr IVPB Q6HR PRN Rx#: [id number] E-Mycin 250 MG In 0.9 % Sodium 100 / 100 100 / 100 Chloride 100 ML @ 200 mls/hr IVPB Q8H [facility] Rx#:[id number] Zosyn 3.375 GM In Dextrose 5% ( 50 / 50 50 / 50 ADD-Tarzana) 50 ML @ 12.5 mls/ hr IVPB Q8HR [facility] Rx#:[id number] Vancocin 1,500 MG In Dextrose 5 250 / 250 % 250 ML @ 166.67 mls/hr IVPB ONCE ONE Rx#:[id number] Tube Feeding 228 / 228 241 / 241 Free Water 250 / 250 250 / 250 Output: Urine 200 / 200 Catheter 200 / 200 800 / 800 Other: Weight 92.5 kg Blood Glucose* 199 166 Patient Weight 08/23/17 23:59 Weight 92.5 kg - General Appearance General appearance: Present: chronically ill, intubated, frail EENT: Present: mucous membranes moist Neck: Present: no JVD Respiratory: Present: clear Cardiology: Present: edema, regular rate, regular rhythm Additional Comments: generalized pitting Gastrointestinal: Present: normoactive bowel sounds Integumentary: Present: warm and dry - Lab 08/23/17 04:30 08/23/17 04:30 Most recent lab results ABG pH 7.36 pH Units (7.32-7.45) 08/22/17 23:18 ABG pCO2 55 mmHg (35-45) H 08/22/17 23:18 ABG pO2 139 mmHg (85-104) H 08/22/17 23:18 ABG HCO3 31 mEq/L (21-27) H 08/22/17 23:18 ABG O2 Saturation 99 % (95-98) H 08/22/17 23:18 Calcium 8.3 mg/dL (8.6-10.8) L 08/23/17 04:30 Phosphorus 3.7 mg/dL (2.3-4.7) 08/23/17 04:30 Magnesium 2.2 mg/dL (1.6-2.6) 08/23/17 04:30 Consult Discharge Plan - Plan Referrals: Poncho Noriega MD [Primary Care Provider] -
--- NOTE | 2017-08-23 09:35 | Infectious Disease Progress No ---
Date of Encounter: 08/23/17 Time of Encounter: 09:33 - Assessment and Plan (1) Cardiac arrest Current Visit: Yes Status: Resolved Status post witnessed cardiac arrest 08/14/17. Etiology unclear. ROSC after CPR and ACLS protocol initiation. (2) Shock Current Visit: Yes Status: Acute Septic vs. cardiogenic. The patient had cardiac arrest followed by hypotension requiring vasopressors, leukocytosis, and fever. Vasopressors have been weaned off. WBC worse this morning. No bands. Afebrile x 6 days. Management per the ICU team. (3) Osteomyelitis Current Visit: No Status: Acute Location: Left heel. Diagnosed on previous hospitalization. Patient discharged on IV antibiotics, but not sure who was following these in the outpatient setting. MRI of the left foot completed 07/22/17 showed findings consistent with early osteomyelitis vs. reactive osteitis. Podiatry was consulted, but no surgical intervention was done as the ulcer looked good and the patient had improved clinically. According to the discharge summary, the patient was discharged on IV Vancomycin and IV Levaquin. Cultures at that time grew out MRSA and Shewanella. Clinically, the left heel does look a little worse than when I saw it during his previous admission. There is surrounding erythema and the ulcer appears larger. Check ESR and CRP. Recommend Podiatry to evaluate and offer wound care recommendations. Discussed with Dr. Peterson. Start Vancomycin IV. Pharmacy to dose. Goal trough approximately 15. Continue Zosyn 3.375 grams IV Q8H. Duration of treatment depends on the clinical picture, but likely a total of 6 weeks of IV antibiotics. Treat through 08/31/17 and if no additional infectious diseases are identified, can discontinue antibiotics. Qualifiers: Osteomyelitis type: other acute Osteomyelitis location: foot Laterality: left Qualified Code(s): M86.172 - Other acute osteomyelitis, left ankle and foot (4) Abnormal CT scan, chest Current Visit: Yes Status: Acute CT scan of the chest showed multiple fractured ribs, small to moderate bilateral pleural effusions, and pulmonary consolidative changed and multifocal infoltrates bilaterally suggestive of PNA. Repeat CXR 08/22/17 shows persistent bilateral pleural effusions and patchy airspace opacities, mildly improved compared to the CT of the chest. Case discussed with Dr. James and Dr. Peterson who feel these findings are likely related to fluid volume overload, but the notes do reveal that there is concern for aspiration of tube feeds. Will continue antibiotics as above for now for OM, which will also cover for pneumonia. (5) Acute kidney injury Current Visit: Yes Status: Acute Likely multifactorial: shock + cardiac arrest + hypotension + nephrotoxic medications. Improved. Nephrology consulted and following. Continue to trend. Dose-adjust antibiotics. Avoid nephrotoxins as able. (6) Elevated troponin Current Visit: No Status: Resolved Likely secondary to cardiac arrest. Cardiology consulted and signed off. (7) Acute respiratory failure Current Visit: Yes Status: Acute Secondary to cardiac arrest, persistent due to acute encephalopathy. Improved. Currently in CPAP mode. Plans to extubate later per nursing. Management per the ICU team. Qualifiers: Respiratory failure complication: hypoxia Qualified Code(s): J96.01 - Acute respiratory failure with hypoxia (8) Encephalopathy Current Visit: Yes Status: Acute Appears improved, but patient still difficult to maintain wakefulness. Does follow some commands. CT head negative for acute findings x 2. EEG negative. (9) Pressure ulcer of left heel, unstageable Current Visit: No Status: Acute Previously diagnosed with OM of the left heel. Consider podiatry consult for evaluation. Continue wound care and offloading. 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 Markedly improved since I saw the ulcers during his last hospital stay. Continue wound care. (11) Broken ribs Current Visit: Yes Status: Acute Secondary to CPR. Pain management per the primary team. Qualifiers: Encounter type: initial encounter Rib fracture type: multiple ribs Fracture type: closed Laterality: bilateral Qualified Code(s): S22.43XA - Multiple fractures of ribs, bilateral, initial encounter for closed fracture (12) Fluid overload Current Visit: Yes Status: Acute Management per the ICU and nephrology teams. Qualifiers: Hypervolemia type: other Qualified Code(s): E87.79 - Other fluid overload (13) CHF (congestive heart failure) Current Visit: Yes Status: Chronic Qualifiers: Congestive heart failure type: unspecified congestive heart failure type Congestive heart failure chronicity: acute Qualified Code(s): I50.9 - Heart failure, unspecified (14) CAD (coronary artery disease) Current Visit: No Status: Chronic Qualifiers: Coronary Disease-Associated Artery/Lesion type: [place] artery [place] vs. transplanted heart: [place] heart Associated angina: without angina Qualified Code(s): I25.10 - Atherosclerotic heart disease of [place] coronary artery without angina pectoris (15) Pleural effusion Current Visit: Yes Status: Acute Location: Bilateral. Likely secondary to fluid volume overload. Management per the pulmonary team. Infect Dis PN-Objective Data - Labs CBC & Chem 7: 08/23/17 04:30 08/23/17 04:30 Labs: Laboratory Results - last 24 hr 08/22/17 08/22/17 08/22/17 10:58 14:12 15:04 WBC RBC Hgb Hct MCV MCH MCHC RDW Plt Count MPV Immature Gran % Seg Neutrophils % Lymphocytes % Monocytes % Eosinophils % Basophils % Neutrophils # Lymphocytes # Monocytes # Eosinophils # Basophils # Nucleated RBCs/100 WBC Immature Plt Fraction PT INR Sample Site R Brach ABG pH 7.37 ABG pCO2 53 H ABG pO2 121 H ABG HCO3 30 H ABG Total CO2 32 H ABG O2 Saturation 99 H ABG Base Excess 4 H Esteban Test Respiration Rate 12 O2 Delivery Device Adult Vent Blood Gas Modality ASSIST CONTROL Inspired O2 45.0 Tidal Volume 380 PEEP Pressure Support Sodium Potassium Chloride Carbon Dioxide BUN Creatinine Est GFR ( Amer) Est GFR (Non-Af Amer) BUN/Creatinine Ratio Glucose POC Glucose 140 H Calculated Osmolality Calcium Ionized Calcium 1.07 L Phosphorus Magnesium 2.2 Total Bilirubin Direct Bilirubin Indirect Bilirubin AST ALT Alkaline Phosphatase Serum Total Protein Albumin Globulin Albumin/Globulin Ratio Random Vancomycin 08/22/17 08/22/17 08/22/17 15:33 19:29 23:18 WBC RBC Hgb Hct MCV MCH MCHC RDW Plt Count MPV Immature Gran % Seg Neutrophils % Lymphocytes % Monocytes % Eosinophils % Basophils % Neutrophils # Lymphocytes # Monocytes # Eosinophils # Basophils # Nucleated RBCs/100 WBC Immature Plt Fraction PT INR Sample Site R Radial ABG pH 7.36 ABG pCO2 55 H ABG pO2 139 H ABG HCO3 31 H ABG Total CO2 33 H ABG O2 Saturation 99 H ABG Base Excess 5 H Esteban Test N/A Respiration Rate O2 Delivery Device Adult Vent Blood Gas Modality CPAP/PS Inspired O2 45.0 Tidal Volume PEEP 5 Pressure Support 8 Sodium Potassium Chloride Carbon Dioxide BUN Creatinine Est GFR ( Amer) Est GFR (Non-Af Amer) BUN/Creatinine Ratio Glucose POC Glucose 192 H 199 H Calculated Osmolality Calcium Ionized Calcium Phosphorus Magnesium Total Bilirubin Direct Bilirubin Indirect Bilirubin AST ALT Alkaline Phosphatase Serum Total Protein Albumin Globulin Albumin/Globulin Ratio Random Vancomycin 08/22/17 08/23/17 08/23/17 23:49 00:05 04:30 WBC 16.5 H RBC 2.55 L Hgb 7.3 L Hct 23.8 L MCV 93.3 MCH 28.6 MCHC 30.7 L RDW 17.2 H Plt Count 86 L MPV 12.2 Immature Gran % 0.5 Seg Neutrophils % 86.3 Lymphocytes % 4.2 Monocytes % 8.4 Eosinophils % 0.4 Basophils % 0.2 Neutrophils # 14.2 H Lymphocytes # 0.7 Monocytes # 1.4 H Eosinophils # 0.1 Basophils # 0.0 Nucleated RBCs/100 WBC 0.1 H Immature Plt Fraction 14.3 H PT INR Sample Site ABG pH ABG pCO2 ABG pO2 ABG HCO3 ABG Total CO2 ABG O2 Saturation ABG Base Excess Esteban Test Respiration Rate O2 Delivery Device Blood Gas Modality Inspired O2 Tidal Volume PEEP Pressure Support Sodium Potassium Chloride Carbon Dioxide BUN Creatinine Est GFR ( Amer) Est GFR (Non-Af Amer) BUN/Creatinine Ratio Glucose POC Glucose 187 H Calculated Osmolality Calcium Ionized Calcium 1.07 L Phosphorus Magnesium Total Bilirubin Direct Bilirubin Indirect Bilirubin AST ALT Alkaline Phosphatase Serum Total Protein Albumin Globulin Albumin/Globulin Ratio Random Vancomycin 08/23/17 08/23/17 08/23/17 04:30 04:30 04:30 WBC RBC Hgb Hct MCV MCH MCHC RDW Plt Count MPV Immature Gran % Seg Neutrophils % Lymphocytes % Monocytes % Eosinophils % Basophils % Neutrophils # Lymphocytes # Monocytes # Eosinophils # Basophils # Nucleated RBCs/100 WBC Immature Plt Fraction PT 12.6 H INR 1.2 Sample Site ABG pH ABG pCO2 ABG pO2 ABG HCO3 ABG Total CO2 ABG O2 Saturation ABG Base Excess Esteban Test Respiration Rate O2 Delivery Device Blood Gas Modality Inspired O2 Tidal Volume PEEP Pressure Support Sodium 139 Potassium 4.0 Chloride 102 Carbon Dioxide 30 H BUN 71 H Creatinine 2.78 H Est GFR ( Amer) 27 L Est GFR (Non-Af Amer) 22 L BUN/Creatinine Ratio 26 Glucose 140 H POC Glucose Calculated Osmolality 311 H Calcium 8.3 L Ionized Calcium 1.08 L Phosphorus 3.7 Magnesium 2.2 Total Bilirubin 0.8 Direct Bilirubin 0.4 Indirect Bilirubin 0.4 AST 26 ALT 24 Alkaline Phosphatase 118 Serum Total Protein 5.3 L Albumin 2.2 L Globulin 3.1 Albumin/Globulin Ratio 0.7 L Random Vancomycin 08/23/17 08/23/17 04:30 07:16 WBC RBC Hgb Hct MCV MCH MCHC RDW Plt Count MPV Immature Gran % Seg Neutrophils % Lymphocytes % Monocytes % Eosinophils % Basophils % Neutrophils # Lymphocytes # Monocytes # Eosinophils # Basophils # Nucleated RBCs/100 WBC Immature Plt Fraction PT INR Sample Site ABG pH ABG pCO2 ABG pO2 ABG HCO3 ABG Total CO2 ABG O2 Saturation ABG Base Excess Esteban Test Respiration Rate O2 Delivery Device Blood Gas Modality Inspired O2 Tidal Volume PEEP Pressure Support Sodium Potassium Chloride Carbon Dioxide BUN Creatinine Est GFR ( Amer) Est GFR (Non-Af Amer) BUN/Creatinine Ratio Glucose POC Glucose 166 H Calculated Osmolality Calcium Ionized Calcium Phosphorus Magnesium Total Bilirubin Direct Bilirubin Indirect Bilirubin AST ALT Alkaline Phosphatase Serum Total Protein Albumin Globulin Albumin/Globulin Ratio Random Vancomycin 34.6 Cultures: Cultures 08/15/17 01:15 Blood Culture - Final Peripheral Venipuncture No growth. 08/14/17 22:34 Blood Culture - Final Peripheral Venipuncture No growth. 08/17/17 03:51 Sputum Culture - Final Sputum Exam - Constitutional Vitals: Temp Pulse Resp BP Pulse Ox 96.0 F L 79 11 115/67 98 08/23/17 07:29 08/23/17 07:00 08/23/17 09:22 08/23/17 09:22 08/23/17 09:22 General appearance: average body habitus, cooperative, no acute distress - Head Head exam: Present: atraumatic, normal inspection, normocephalic - Eye Eye exam: Present: EOMI, normal appearance, PERRL Pupils: Present: normal accommodation - ENT ENT exam: Present: mucous membranes moist - Neck Neck exam: Present: normal inspection - Respiratory Respiratory exam: Present: decreased breath sounds (throughout) - Cardiovascular Cardiovascular exam: Present: irregular rhythm. Absent: tachycardia - GI/Abdominal GI/Abdominal exam: Present: normal bowel sounds, soft. Absent: distended, tenderness Additional comments: Hernandez catheter draining cloudy yellow urine. OG tube with tube feeds infusing. - Extremities Exam Extremities exam: Present: pedal edema (2+ BLE). Absent: joint swelling, tenderness Additional comments: Ulcerations to the dorsal aspect of the right foot moist and without erythema, warmth, or drainage. Markedly improved since previous admission. Ulcer noted to the medial aspect of the right lower leg markedly improved as well. Ulcerations to the dorsal aspect of the left foot moist and without erythema, warmth, or drainage. Markedly improved since last admission. Stage III ulceration noted to the left heel approx 2cm x 2cm x 1cm deep with surrounding skin macerated. No foul odor or purulent drainage noted. Erythema of the soft tissue surrounding the ulcer noted. No fluctuance noted. - Neurological Exam Neurological exam: Present: alert, no focal deficits. Absent: facial droop Additional comments: Remains intubated, but follows some commands. Opens eyes to verbal stimuli. - Skin Skin exam: Present: dry, intact, warm - Additional findings Additional findings: Generalized edema noted. Consult Discharge Plan - Plan Referrals: Poncho Noriega MD [Primary Care Provider] -
[2017-08-23 10:56] LABS: ABG Base Excess 6 mEq/L (-2 to 3); ABG HCO3 33 mEq/L (21-27); ABG Oxygen Saturation 99 % (95-98); ABG PCO2 61 mmHg (35-45); ABG PH 7.34 pH Units (7.32-7.45); ABG PO2 152 mmHg (85-104); ABG TCO2 35 mEq/L (20-26); Blood Gas Modality CPAP/PS; Blood Gas PEEP 5 cm H2O; Blood Gas Pressure Support 0 cm H2O; Blood Gas Respiration Rate 11; Blood Gas VT 486 cc
[2017-08-23] MEDS ORDERED: Calcium Chloride 1,000 MG in 0.9 % Sodium Chloride 100 ML IVPB ONE (14:39)
[2017-08-23] MEDS: *HR* FentaNYL (PF) 100 MCG/2 ML VIAL IVP PRN ×2 (15:34→20:00)
--- NOTE | 2017-08-23 18:14 | Podiatry Consult Note ---
Date of Encounter: 08/23/17 Time of Encounter: 17:30 Assessment and Plan (1) Diabetes Current visit: Yes Status: Chronic Known hx of uncontrolled DM Strict glucose control to promote healing and prevent further complication 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 mellitus halfway insulin use: without halfway use Qualified Code( s): E11.621 - Type 2 diabetes mellitus with foot ulcer; L97.509 - Non-pressure chronic ulcer of other part of unspecified foot with unspecified severity; L97.509 - Non-pressure chronic ulcer of other part of unspecified foot with unspecified severity; L97.509 - Non-pressure chronic ulcer of other part of unspecified foot with unspecified severity; L97.509 - Non-pressure chronic ulcer of other part of unspecified foot with unspecified severity (2) Pressure ulcer of left heel, unstageable Current visit: No Status: Acute Assessment- Full thickness pressure ulceration of left heel with surrounding area of probable DTI Plan: Assessment complete at bedside Wound to left heel measuring [id number] with 1cm dept and 1.5 area of tunnelling to 12oclock. There is a small area of bone exposure noted 70% fibrous tissue 30 % healthy granulation tissue. There is surrounding erythema to periwound measuring 5.5cmx3.5cm which is non blanchable and appears to be consistent with increasing area of DTI due to immobility. There is minimal warmth to wound. No areas of fluctuance. No ascending cellulitis. No odor. No drainage from wound bed. Continue current wound care- application of sanytl to left heel wound as well as scattered superficial ulcerations to dorsal aspect of left foot, adaptic and dry dressing Heel protector boot at all times- needs constant offloading Last MRI showed signal with signs of possible early osteomyelitis which was decided to be managed by IV antibiotic therapy and follow on outpatient basis Patient is known to have vascular compromise to LLE, last CLIFF 0.54 to LLE- will consult vascular to follow- call completed Will continue to follow however will only provide conservative treatment at this time due to patients medical condition. ID on board, there is a noted increase in WBC however it is unlikely that this is related to ulceration of heel. Will order ESR and CRP Will base treatment plan on clinical picture. Patient currently on vancomycin and zosyn as managed per ID. (3) Osteomyelitis Current visit: No Status: Acute Qualifiers: Osteomyelitis type: other acute Osteomyelitis location: foot Laterality: left Qualified Code(s): M86.172 - Other acute osteomyelitis, left ankle and foot History of Present Illness HPI: Mr. Mayorga is a 77 year old male with a PMH significant for cellulitis, diabetic foot ulcerations, uncontrolled DM, HTN and atherosclerosis of BLE. Patient is known to podiatry services following a recent admission. At this time , we have been consulted regarding a chronic pressure wound of the left heel. Patient was admitted follow cardiac arrest. He was admitted to ICU where he was placed on mechanical ventilation and vasopressor medications. Patient is now off vasopressors x3 days, remains on pressure support per ventilator. Awake and alert at this time, not on sedation. restless and quickly drifts back to sleep. Nurse states they have been applying santyl to wound of left heel with dry dressing and prevalon boot for offloading. Patient is known to have compromised blood flow to BLE. He underwent an angiogram with angioplasty of the RLE on 07/17 per zaida-patient was noted to need intervention of the LLE however was noted to have yeast infection of groin and intervention was held until patient was medically stable. Patient also underwent an I&D of the left heel wound per on 07/25/17- surgical culture grew out shewanella, MRSA and jake lipolytica. Follwing vascular intervention and debridement patient was discharged to [facility] to follow on outpatient basis, patient did not make follow up appointments due to recent admission. Past Med Surg Social Fam HX - Past Medical History Medical history: COPD, coronary artery disease, diabetes, hyperlipidemia, hypertension, other (Osteomyelitis left heel) Psychiatric history: no psych history - Past Surgical History Surgical History: no surgical history - Social History Smoking Status: Unknown if ever smoked Smokeless Tobacco Status: No Alcohol use: none Drug use: none - Family History Mother Family Member Ethnicity: Non- Living Status: Hx Family Cardiac Disorders: Yes (CAD) Hx Family Endocrine Disorder: Yes (DM) Father Family Member Ethnicity: Non- Living Status: Hx Family Cardiac Disorders: Yes (HD) Hx Family Respiratory Disorders: Yes (Emphysema) Brother Family Member Ethnicity: Non- Living Status: Still Living Hx Family Cardiac Disorders: Yes (HD, HTN) Hx Family Endocrine Disorder: Yes (DM) Sister Family Member Ethnicity: Non- Living Status: Hx Family Endocrine Disorder: Yes (DM) Medications and Allergies Aspirin 325 mg PO DAILY tablet 08/07/17 [Rx] Atorvastatin [Lipitor] 40 mg PO HS tablet 08/07/17 [Rx] Carvedilol [Coreg] 25 mg PO BIDWM tablet 08/07/17 [Rx] Clopidogrel [Plavix] 75 mg PO DAILY tablet 08/07/17 [Rx] Furosemide [Lasix] 40 mg PO DAILY tablet 08/07/17 [Rx] Lisinopril [Zestril] 2.5 mg PO DAILY tablet 08/07/17 [Rx] Magnesium Oxide [Mag-Ox] 400 mg PO DAILY tablet 08/07/17 [Rx] Nitroglycerin 0.4 mg SL Q5MIN PRN tab.subl 08/07/17 [Rx] Omeprazole [PriLOSEC] 20 mg PO DAILY@0630 capsule. 08/07/17 [Rx] OxyCODONE Immed Rel [Roxicodone 5 MG] 10 mg PO Q8HR PRN #10 tablet 08/07/17 [Rx] Potassium Chloride 20 meq PO DAILY tab.er.prt 08/07/17 [Rx] Zinc Sulfate 220 mg PO DAILY capsule 08/07/17 [Rx] amLODIPine [Norvasc] 10 mg PO DAILY tablet 08/07/17 [Rx] Clotrimazole/Betamethasone Dip [Lotrisone Cream] 1 appl TP DAILY 08/15/17 [ History] Collagenase Oint [Santyl] 1 appl TP BID 08/15/17 [History] Insulin LISPRO [HumaLOG] 0 units SQ TID PRN 08/15/17 [History] Levofloxacin 750 MG/150 ML [Levaquin Premix 750mg/150 mL] 750 mg IVPB DAILY 11/30 [History] Melatonin 5 mg PO HS 08/15/17 [History] Vancomycin/0.9 % Sod Chloride [Vanco 1.25 gm/250 ml-0.9% NaCl] 1.25 gm IV DAILY 08/15/17 [History] 3 Allergy/AdvReac Type Severity Reaction Status Date / Time No Known Allergies Allergy Verified 07/03/15 17:42 All Systems Reviewed: A 10-system review of systems was performed and is negative for pertinent findings except as documented above in the HPI. Physical Exam - Constitutional Vitals: Temp Pulse Resp BP Pulse Ox 97.7 F 77 15 170/81 100 08/23/17 15:50 08/23/17 17:00 08/23/17 17:42 08/23/17 17:42 08/23/17 17:42 General appearance: average body habitus, cooperative, no acute distress Exam: Patient is intermittently awake, on ETT, no sedation. Nods head to questions at times Wound to left heel measuring [id number] with 1cm dept and 1.5 area of tunnelling to 12oclock. There is a small area of bone exposure noted 70% fibrous tissue 30 % healthy granulation tissue. There is surrounding erythema to periwound measuring 5.5cmx3.5cm which is non blanchable and appears to be consistent with increasing area of DTI due to immobility. There is minimal warmth to wound. No areas of fluctuance. No ascending cellulitis. No odor. No drainage from wound bed. No palpable DP/PT pulses, to signal only. Toes are warm. Capillary refill sluggish, slight pallor. No appearance of ischemic injury from vasopressors noted at this time however this could have contributed to worsening of non healing ulceration of left heel Does not withdraw to painful stimuli No calf warmth or tenderness noted Patient does not follow commands to assess strength Movement intact, restless Lateral and dorsal aspect of foot was also superficially debrided during surgical procedure, these area healing uneventfully and without clinical signs of infection Results - Labs Result Diagrams: 08/26/17 03:24 08/26/17 03:24 Labs: Abnormal lab results WBC 16.5 K/mcL (4.3-11.1) H 08/23/17 04:30 RBC 2.55 M/mcL (4.19-5.50) L 08/23/17 04:30 Hgb 7.3 g/dL (12.9-16.9) L 08/23/17 04:30 Hct 23.8 % (37.5-50.1) L 08/23/17 04:30 MCHC 30.7 g/dL (31.6-35.5) L 08/23/17 04:30 RDW 17.2 % (11.5-14.5) H 08/23/17 04:30 Plt Count 86 K/mcL (140-400) L 08/23/17 04:30 Neutrophils # 14.2 K/mcL (1.6-8.9) H 08/23/17 04:30 Monocytes # 1.4 K/mcL (0.0-1.3) H 08/23/17 04:30 Nucleated RBCs/100 WBC 0.1 /100 WBC (0) H 08/23/17 04:30 Platelet Estimate Decreased (Normal) L 08/20/17 04:45 Immature Plt Fraction 14.3 % (1.1-6.1) H 08/23/17 04:30 PT 12.6 Seconds (9.4-12.1) H 08/23/17 04:30 APTT 58.0 Seconds (26.0-36.0) H 08/17/17 03:51 ABG pCO2 61 mmHg (35-45) H 08/23/17 10:51 ABG pO2 152 mmHg (85-104) H 08/23/17 10:51 ABG HCO3 33 mEq/L (21-27) H 08/23/17 10:51 ABG Total CO2 35 mEq/L (20-26) H 08/23/17 10:51 ABG O2 Saturation 99 % (95-98) H 08/23/17 10:51 ABG Base Excess 6 mEq/L (-2 to 3) H 08/23/17 10:51 Carbon Dioxide 30 mEq/L (19-29) H 08/23/17 04:30 BUN 71 mg/dL (8-26) H 08/23/17 04:30 Creatinine 2.78 mg/dL (0.72-1.25) H 08/23/17 04:30 Est GFR ( Amer) 27 (> 60) L 08/23/17 04:30 Est GFR (Non-Af Amer) 22 (> 60) L 08/23/17 04:30 Glucose 140 mg/dL (70-99) H 08/23/17 04:30 POC Glucose 209 (58-89) H 08/23/17 15:26 Hemoglobin A1c 7.4 % (-5.6) H 08/15/17 05:02 Calculated Osmolality 311 (280-300) H 08/23/17 04:30 Calcium 8.3 mg/dL (8.6-10.8) L 08/23/17 04:30 Ionized Calcium 1.06 mmol/L (1.15-1.35) L 08/23/17 13:48 Troponin I 1.08 ng/mL (0-0.03) H* 08/15/17 12:00 Serum Total Protein 5.3 g/dL (6.0-8.3) L 08/23/17 04:30 Albumin 2.2 g/dL (3.5-5.0) L 08/23/17 04:30 Albumin/Globulin Ratio 0.7 (1.1-2.2) L 08/23/17 04:30 Urine Clarity Turbid (Clear) A 08/14/17 20:57 Urine Protein >=300 mg/dL (Neg-Trace) H 08/14/17 20:57 Urine Ketones Trace mg/dL (Negative) H 08/14/17 20:57 Urine Blood Large (Negative) H 08/14/17 20:57 Ur Leukocyte Esterase Large (Negative) H 08/14/17 20:57 Urine Microscopic RBC TNTC per hpf (0-3) H 08/14/17 20:57 Urine Microscopic WBC TNTC per hpf (0-3) H 08/14/17 20:57 Urine Yeast Few per hpf (None Seen) H 08/14/17 20:57 Ur Culture Indicated? YES (NO) A 08/14/17 20:57 Vancomycin Trough 39.8 mcg/mL (10-20) H* 08/16/17 21:05 H & H 08/23/17 Range/Units 04:30 Hgb 7.3 L (12.9-16.9) g/dL Hct 23.8 L (37.5-50.1) % All other labs normal. Consult Discharge Plan - Plan Referrals: Poncho Noriega MD [Primary Care Provider] -
--- NOTE | 2017-08-23 18:55 | Electrocardiograph Report ---
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
[2017-08-23 21:24] LABS: Basophils % 0.1 %
[2017-08-23 21:26] LABS: Eosinophils # 0.1 K/mcL (0.0-0.6); Eosinophils % 0.6 %; Hematocrit 16.3 % (37.5-50.1); Immature Granulocytes % 0.7 % (0-4); Lymphocytes # 0.5 K/mcL (0.6-4.6); Lymphocytes % 3.9 %; Mean Corpuscular HGB Conc 30.7 g/dL (31.6-35.5); Mean Corpuscular Hemoglobin 28.7 pg (28.0-33.3); Mean Corpuscular Volume 93.7 fL (83.0-100.0); Mean Platelet Volume 12.8 fL (9.4-12.4); Monocytes % 7.3 %; Neutrophils # 11.7 K/mcL (1.6-8.9); Red Blood Count 1.74 M/mcL (4.19-5.50); Red Cell Distribution Width 17.1 % (11.5-14.5); Segmented Neutrophils % 87.4 %
[2017-08-23 21:29] LABS: INR 1.3; Platelet Count 75 K/mcL (140-400); Prothrombin Time 14.2 Seconds (9.4-12.1)
[2017-08-23 21:31] LABS: Activated Partial Thrombo Time 45.9 Seconds (26.0-36.0)
[2017-08-23] MEDS: Pantoprazole 80 MG in 0.9 % Sodium Chloride 250 ML IVC SCH (23:15)
[2017-08-23] MEDS ORDERED: 0.9 % Sodium Chloride 250 ML ONE (23:51)
[2017-08-24] MEDS: *HR* FentaNYL (PF) 100 MCG/2 ML VIAL IVP PRN ×2 (00:07→12:55)
[2017-08-24] MEDS: Lacri-Lube 3.5 GM TUBE BOTH EYES SCH ×6 (00:08→19:39)
[2017-08-24] MEDS: Insulin LISPRO 300 UNITS/3 ML VIAL SQ SCH ×6 (00:08→20:36)
[2017-08-24] MEDS: Piperacillin/Tazobactam 3.375 GM in D5% in Water 50 ML IVPB SCH ×3 (00:22→16:16)
[2017-08-24] MEDS ORDERED: 0.9 % Sodium Chloride 250 ML ONE (02:39)
[2017-08-24] MEDS: Erythromycin Lactobionate 250 MG in 0.9 % Sodium Chloride 100 ML IVPB SCH ×3 (05:30→21:21)
[2017-08-24 05:57] LABS: Ionized Calcium 1.09 mmol/L (1.15-1.35)
[2017-08-24 06:13] LABS: Albumin/Globulin Ratio 0.7 (1.1-2.2); Bilirubin,Direct 0.5 mg/dL (0.0-0.5); Bilirubin,Indirect 0.4 mg/dL (0.0-1.2); Bilirubin,Total 0.9 mg/dL (0.2-1.2); Calcium 7.5 mg/dL (8.6-10.8); Globulin 2.5 g/dL (2.4-3.5); Magnesium 1.7 mg/dL (1.6-2.6); Phosphorous 3.7 mg/dL (2.3-4.7); Potassium 4.3 mEq/L (3.5-4.5)
[2017-08-24 06:15] LABS: Albumin 1.7 g/dL (3.5-5.0); INR 1.2; Prothrombin Time 12.8 Seconds (9.4-12.1); Total Protein 4.2 g/dL (6.0-8.3)
[2017-08-24] MEDS: Chlorhexidine Rinse 15 ML MOUTHWASH MM SCH ×2 (07:38→19:38)
[2017-08-24] MEDS: Pantoprazole 80 MG in 0.9 % Sodium Chloride 250 ML IVC SCH ×2 (07:39→18:10)
[2017-08-24] MEDS: Budesonide/Formoterol 160/4.5 MDI IH SCH ×2 (07:50→21:53)
[2017-08-24] MEDS ORDERED: Albumin 25% 25gram/100mL 25 GM/100 ML IV.SOLN IVPB ONE (07:55)
[2017-08-24] MEDS ORDERED: Furosemide 40 MG/4 ML VIAL IVP ONE (07:55)
[2017-08-24 08:11] LABS: Basophils % 0.1 %; Eosinophils % 0.4 %; Red Cell Distribution Width 15.9 % (11.5-14.5)
[2017-08-24 08:13] LABS: Eosinophils # 0.1 K/mcL (0.0-0.6); Hematocrit 21.8 % (37.5-50.1); Immature Granulocytes % 0.6 % (0-4); Immature Platelets 10.3 % (1.1-6.1); Lymphocytes # 0.7 K/mcL (0.6-4.6); Lymphocytes % 4.9 %; Mean Corpuscular HGB Conc 32.1 g/dL (31.6-35.5); Mean Corpuscular Hemoglobin 29.2 pg (28.0-33.3); Mean Corpuscular Volume 90.8 fL (83.0-100.0); Mean Platelet Volume 12.6 fL (9.4-12.4); Monocytes # 1.1 K/mcL (0.0-1.3); Monocytes % 8.1 %; Platelet Count 101 K/mcL (140-400); Segmented Neutrophils % 85.9 %
--- NOTE | 2017-08-24 08:55 | Nephrology Progress Note ---
Date of Encounter: 08/24/17 Time of Encounter: 08:00 - Assessment and Plan (1) Acute kidney injury Current Visit: Yes Status: Acute YUM[place] in setting of cardiac arrest, hypovolemia, Vanc toxicity. Will monitor, no immediate need for dialysis. Avoid nephrotoxins. Documented urine output 1350cc. Renal fct slowly improving, K 4.3. Will continue to monitor. Subjective Principal diagnosis: Cardiac Arrest Interval history: Remains Intubated, CPAP in progress. Objective - Vital Signs Vital signs: Vital Signs Temp Pulse Resp BP Pulse Ox 08/24/17 08:00 97.7 F 85 13 133/64 99 08/24/17 07:41 97.7 F 08/24/17 07:00 82 13 136/63 99 08/24/17 06:18 13 127/58 99 08/24/17 06:00 67 12 127/58 99 08/24/17 05:35 98.1 F 69 16 129/57 99 08/24/17 05:00 70 14 125/59 99 08/24/17 04:00 70 14 115/56 99 08/24/17 03:51 98.5 F 08/24/17 03:30 71 15 118/54 100 08/24/17 03:15 98.2 F 70 14 118/59 08/24/17 03:00 98.0 F 70 12 126/64 100 08/24/17 02:57 97.7 F 70 14 123/61 98 08/24/17 02:00 63 13 94/48 100 08/24/17 01:00 64 13 94/48 100 08/24/17 00:23 12 106/52 100 08/24/17 00:21 97.6 F 08/24/17 00:16 97.4 F L 61 11 106/52 08/24/17 00:15 64 13 106/52 100 08/24/17 00:06 97.6 F 62 11 109/51 100 08/23/17 23:00 65 15 128/54 100 08/23/17 22:27 14 138/61 100 08/23/17 21:00 59 12 118/55 100 08/23/17 20:53 97.4 F L 08/23/17 20:46 11 122/54 100 08/23/17 20:30 58 12 122/54 100 08/23/17 19:30 79 08/23/17 19:00 61 14 122/56 100 08/23/17 18:09 82 14 167/77 99 08/23/17 17:42 15 170/81 100 08/23/17 17:00 77 17 173/80 100 08/23/17 16:00 86 14 171/88 100 08/23/17 15:50 97.7 F 08/23/17 15:30 13 175/83 100 08/23/17 15:00 85 16 178/83 100 08/23/17 14:00 80 10 173/76 100 08/23/17 13:13 100 08/23/17 13:00 71 12 162/76 100 08/23/17 12:00 68 10 163/77 99 08/23/17 11:50 97.5 F L 08/23/17 11:43 100 08/23/17 11:00 67 15 155/77 100 08/23/17 10:00 68 12 152/90 98 08/23/17 09:22 11 115/67 98 08/23/17 09:00 67 12 155/67 100 Intake and Output 08/23/17 08/24/17 08/24/17 23:59 07:59 15:59 Intake Total 643 / 643 1175 / 1175 0 / 0 Output Total 250 / 250 400 / 400 Balance 393 / 393 775 / 775 0 / 0 Intake: IV Fluids 150 / 150 400 / 400 Protonix 80 MG In 0.9 % Sodium 250 / 250 Chloride 250 ML @ 25 mls/hr IVC .Q10H DAV Rx#:[id number] E-Mycin 250 MG In 0.9 % Sodium 100 / 100 100 / 100 Chloride 100 ML @ 200 mls/hr IVPB Q8H DAV Rx#:[id number] Zosyn 3.375 GM In Dextrose 5% ( 50 / 50 50 / 50 ADD-Ash) 50 ML @ 12.5 mls/ hr IVPB Q8HR DAV Rx#:[id number] Tube Feeding 243 / 243 Blood Product 775 / 775 Rbcs Leuko Poor As-1 Unit 425 / 425 [id number] Rbcs Leuko Poor As-1 Unit 350 / 350 [id number] Free Water 250 / 250 Free Water Intake Amount 0 / 0 Output: Catheter 250 / 250 400 / 400 Other: Stool Size Moderate Copious Stool Consistency liquid loose Stool Color Dark Red Blood Dark Red Blood # Bowel Movements 1 Weight 93.1 kg Blood Glucose* 198 109 109 Patient Weight 08/24/17 23:59 Weight 93.1 kg - General Appearance General appearance: Present: chronically ill EENT: Present: mucous membranes moist Neck: Present: no JVD Respiratory: Present: clear Cardiology: Present: edema, regular rate, regular rhythm Gastrointestinal: Present: hypoactive bowel sounds Integumentary: Present: warm and dry - Lab 08/24/17 07:55 08/24/17 05:40 Most recent lab results ABG pH 7.34 pH Units (7.32-7.45) 08/23/17 10:51 ABG pCO2 61 mmHg (35-45) H 08/23/17 10:51 ABG pO2 152 mmHg (85-104) H 08/23/17 10:51 ABG HCO3 33 mEq/L (21-27) H 08/23/17 10:51 ABG O2 Saturation 99 % (95-98) H 08/23/17 10:51 Calcium 7.5 mg/dL (8.6-10.8) L 08/24/17 05:40 Phosphorus 3.7 mg/dL (2.3-4.7) 08/24/17 05:40 Magnesium 1.7 mg/dL (1.6-2.6) 08/24/17 05:40 Consult Discharge Plan - Plan Referrals: Poncho Noriega MD [Primary Care Provider] -
[2017-08-24] MEDS ORDERED: Vancomycin 1 EACH in EMPTY BAG 1 EACH IVPB SCH (09:00)
[2017-08-24 09:22] LABS: Activated Partial Thrombo Time 39.5 Seconds (26.0-36.0)
--- NOTE | 2017-08-24 10:15 | Pulmonology Progress Note ---
<Yohana Ocasio - Last Filed: 08/24/17 16:44> Date of Encounter: 08/24/17 Time of Encounter: 10:14 Assessment and Plan (1) Acute respiratory failure Current Visit: Yes Status: Acute -remains intubated on CPAP -no trial of decreased pressure support today d/t new GIB last night, will consider trying again tomorrow morning -oxygenating well with SpO2 99% Qualifiers: Respiratory failure complication: hypoxia Qualified Code(s): J96.01 - Acute respiratory failure with hypoxia (2) Acute GI bleeding Current Visit: Yes Status: Acute -acute GIB overnight accompanied by Hgb drop 7.3 to 5, required transfusion of 2 units pRBCs -ASA and heparin held -Hgb neeraj, as expected, to 7 -no active bleeding at this time, but will monitor closely -aPTT remains elevated (39.5), but decreased from last night (45.9) -etiology unclear--fibrinogen WNL, making it an unlikely cause for elevated aPTT. Deficiency or defect in clotting factors are possible causes (3) Cardiac arrest Current Visit: Yes Status: Acute -possibly 2/2 ACS--no invasive management at this time, continue medical management -remains hemodynamically stable -continue ASA, statin -continue to monitor on tele (4) Septic shock Current Visit: Yes Status: Resolved -shock resolved, afebrile, pulse WNL, BP stable, -possibly d/t aspiration PNA, complicated by b/l diabetic foot ulcers already being treated with IV abx -continue vancomycin (pharm to dose d/t renal function) and zosyn -days on abx since admission: 10 (5) Acute kidney injury Current Visit: Yes Status: Acute -renal function slowly improving -urine output 400 mL so far today -creatinine slowly continues to decrease, 2.67 today -electrolytes stable, on electrolyte protocol -nephrology consulted, recommendations appreciated -no indications for dialysis at this time (6) Diabetic ulcer of both feet Current Visit: Yes Status: Chronic -per ID, continue treatment with IV abx (pharmacy dosing Vancomycin) until 08/31 then d/c abx (unless additional infectious disease identified) -ESR and CRP levels elevated, 28 and 86 respectively -per podiatry, continue current wound care -podiatry consulted, recommendations appreciated -ID consulted, recommendations appreciated (7) CAD (coronary artery disease) Current Visit: Yes Status: Chronic -ASA stopped d/t new GIB requiring 2 units pRBCs -hemodynamically stable, continue tele monitoring Qualifiers: Coronary Disease-Associated Artery/Lesion type: [place] artery [place] vs. transplanted heart: council heart Associated angina: without angina Qualified Code(s): I25.10 - Atherosclerotic heart disease of council coronary artery without angina pectoris (8) Diabetes Current Visit: Yes Status: Chronic -SSI (Lispro) for glycemic control, medium dose correction -continue to monitor glucose and adjust insulin as needed 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 mellitus mcfp insulin use: without termite renewal inspector use Qualified Code( s): E11.621 - Type 2 diabetes mellitus with foot ulcer; L97.509 - Non-pressure chronic ulcer of other part of unspecified foot with unspecified severity; L97.509 - Non-pressure chronic ulcer of other part of unspecified foot with unspecified severity; L97.509 - Non-pressure chronic ulcer of other part of unspecified foot with unspecified severity; L97.509 - Non-pressure chronic ulcer of other part of unspecified foot with unspecified severity (9) Encephalopathy Current Visit: Yes Status: Acute -head CT stable, no acute intracranial abnormalities (10) DVT prophylaxis Current Visit: Yes Status: Acute -Holding heparin d/t new GIB overnight requiring transfusion of 2 units pRBCs Subjective Principal diagnosis: Cardiac Arrest Interval history: Seen and examined at bedside. Overnight, patient began to have large, bloody BMs. His Hgb dropped from 7.3 to 5 and he was transfused with 2 units pRBCs. His morning labs show appropriate increase in Hgb after transfusion. Patient has been hemodynamically stable since getting transfused. Objective PUL Vital signs: Last Vital Signs Temp 97.7 F 08/24/17 08:00 Pulse 69 08/24/17 09:00 Resp 13 08/24/17 09:00 BP 113/54 08/24/17 09:00 Pulse Ox 99 08/24/17 09:00 General appearance: no acute distress (sedated) Eyes: nonicteric ENT: oropharynx dry Auscultation: bilateral: clear Cardiovascular: regular rate and rhythm Gastrointestinal: normoactive bowel sounds, non-tender pupils equal and round, unable to assess due to mental status Ventilator Settings Ventilator Settings: Ventilator Settings, Last 8 Hours Ventilator Mode CPAP Ventilator Mode CPAP Ventilator Mode CPAP Ventilator Mode CPAP Ventilator Mode CPAP Ventilator Mode CPAP Ventilator Mode CPAP Ventilator Mode CPAP Ventilator Mode CPAP Actual Respiratory Rate 13 Actual Respiratory Rate 13 Actual Respiratory Rate 11 Actual Respiratory Rate 13 Actual Respiratory Rate 13 Actual Respiratory Rate 13 Actual Respiratory Rate 13 Actual Respiratory Rate 14 Actual Respiratory Rate 15 Positive End Expiratory 5 Pressure Positive End Expiratory 5 Pressure Positive End Expiratory 5 Pressure Positive End Expiratory 5 Pressure Positive End Expiratory 5 Pressure Positive End Expiratory 5 Pressure Positive End Expiratory 5 Pressure Positive End Expiratory 5 Pressure Positive End Expiratory 5 Pressure Peak Inspiratory Airway 13 Pressure Peak Inspiratory Airway 13 Pressure Peak Inspiratory Airway 13 Pressure Peak Inspiratory Airway 13 Pressure Peak Inspiratory Airway 13 Pressure Peak Inspiratory Airway 13 Pressure Peak Inspiratory Airway 13 Pressure Peak Inspiratory Airway 12 Pressure Peak Inspiratory Airway 13 Pressure Results - Laboratory Findings CBC and BMP: 08/24/17 07:55 08/24/17 05:40 ABG ABG pH 7.34 pH Units (7.32-7.45) 08/23/17 10:51 ABG pCO2 61 mmHg (35-45) H 08/23/17 10:51 ABG pO2 152 mmHg (85-104) H 08/23/17 10:51 ABG O2 Saturation 99 % (95-98) H 08/23/17 10:51 PT/INR, D-dimer PT 12.8 Seconds (9.4-12.1) H 08/24/17 05:40 Abnormal lab findings: Abnormal lab results WBC 14.0 K/mcL (4.3-11.1) H 08/24/17 07:55 RBC 2.40 M/mcL (4.19-5.50) L 08/24/17 07:55 Hgb 7.0 g/dL (12.9-16.9) L D 08/24/17 07:55 Hct 21.8 % (37.5-50.1) L 08/24/17 07:55 RDW 15.9 % (11.5-14.5) H 08/24/17 07:55 Plt Count 101 K/mcL (140-400) L 08/24/17 07:55 MPV 12.6 fL (9.4-12.4) H 08/24/17 07:55 Neutrophils # 12.0 K/mcL (1.6-8.9) H 08/24/17 07:55 Nucleated RBCs/100 WBC 0.1 /100 WBC (0) H 08/23/17 04:30 Platelet Estimate Decreased (Normal) L 08/20/17 04:45 Immature Plt Fraction 10.3 % (1.1-6.1) H 08/24/17 07:55 ESR 28 mm/hr (0-10) H 08/23/17 21:20 PT 12.8 Seconds (9.4-12.1) H 08/24/17 05:40 APTT 39.5 Seconds (26.0-36.0) H 08/24/17 08:51 ABG pCO2 61 mmHg (35-45) H 08/23/17 10:51 ABG pO2 152 mmHg (85-104) H 08/23/17 10:51 ABG HCO3 33 mEq/L (21-27) H 08/23/17 10:51 ABG Total CO2 35 mEq/L (20-26) H 08/23/17 10:51 ABG O2 Saturation 99 % (95-98) H 08/23/17 10:51 ABG Base Excess 6 mEq/L (-2 to 3) H 08/23/17 10:51 BUN 79 mg/dL (8-26) H 08/24/17 05:40 Creatinine 2.67 mg/dL (0.72-1.25) H 08/24/17 05:40 Est GFR ( Amer) 28 (> 60) L 08/24/17 05:40 Est GFR (Non-Af Amer) 23 (> 60) L 08/24/17 05:40 BUN/Creatinine Ratio 30 (6-26) H 08/24/17 05:40 POC Glucose 109 (58-89) H 08/24/17 07:20 Hemoglobin A1c 7.4 % (-5.6) H 08/15/17 05:02 Calculated Osmolality 321 (280-300) H 08/24/17 05:40 Calcium 7.5 mg/dL (8.6-10.8) L 08/24/17 05:40 Ionized Calcium 1.09 mmol/L (1.15-1.35) L 08/24/17 05:40 Lactate Dehydrogenase 149 Units/L (159-327) L 08/24/17 08:51 Troponin I 1.08 ng/mL (0-0.03) H* 08/15/17 12:00 C-Reactive Protein 86 mg/L (Less than 5) H 08/23/17 13:48 Serum Total Protein 4.2 g/dL (6.0-8.3) L D 08/24/17 05:40 Albumin 1.7 g/dL (3.5-5.0) L D 08/24/17 05:40 Albumin/Globulin Ratio 0.7 (1.1-2.2) L 08/24/17 05:40 Urine Clarity Turbid (Clear) A 08/14/17 20:57 Urine Protein >=300 mg/dL (Neg-Trace) H 08/14/17 20:57 Urine Ketones Trace mg/dL (Negative) H 08/14/17 20:57 Urine Blood Large (Negative) H 08/14/17 20:57 Ur Leukocyte Esterase Large (Negative) H 08/14/17 20:57 Urine Microscopic RBC TNTC per hpf (0-3) H 08/14/17 20:57 Urine Microscopic WBC TNTC per hpf (0-3) H 08/14/17 20:57 Urine Yeast Few per hpf (None Seen) H 08/14/17 20:57 Ur Culture Indicated? YES (NO) A 08/14/17 20:57 Stool Occult Blood Positive (Negative) A 08/23/17 22:25 Vancomycin Trough 39.8 mcg/mL (10-20) H* 08/16/17 21:05 - Clinical Findings Intake & Output: Intake & Output 08/23/17 08/24/17 08/24/17 23:59 07:59 15:59 Intake Total 643 / 643 1175 / 1175 0 / 0 Output Total 250 / 250 400 / 400 Balance 393 / 393 775 / 775 0 / 0 Weight 93.1 kg Consult Discharge Plan - Plan Referrals: Poncho Noriega MD [Primary Care Provider] - <Ronit James - Last Filed: 08/24/17 23:38> Date of Encounter: 08/24/17 Objective PUL Vital signs: Last Vital Signs Temp 96.5 F L 08/24/17 20:00 Pulse 68 08/24/17 23:00 Resp 12 08/24/17 23:00 BP 137/69 08/24/17 23:00 Pulse Ox 100 08/24/17 23:00 Ventilator Settings Ventilator Settings: Ventilator Settings, Last 8 Hours Ventilator Mode CPAP Ventilator Mode CPAP Ventilator Mode CPAP Ventilator Mode CPAP Ventilator Mode CPAP Ventilator Mode CPAP Ventilator Mode CPAP Ventilator Mode CPAP Ventilator Mode CPAP Ventilator Mode CPAP Ventilator Mode CPAP Ventilator Respiratory Rate 12 Setting Ventilator Respiratory Rate 12 Setting Ventilator Respiratory Rate 12 Setting Actual Respiratory Rate 12 Actual Respiratory Rate 13 Actual Respiratory Rate 13 Actual Respiratory Rate 15 Actual Respiratory Rate 17 Actual Respiratory Rate 15 Actual Respiratory Rate 13 Actual Respiratory Rate 14 Actual Respiratory Rate 14 Actual Respiratory Rate 14 Actual Respiratory Rate 14 Positive End Expiratory 5 Pressure Positive End Expiratory 5 Pressure Positive End Expiratory 5 Pressure Positive End Expiratory 5 Pressure Positive End Expiratory 5 Pressure Positive End Expiratory 5 Pressure Positive End Expiratory 5 Pressure Positive End Expiratory 5 Pressure Positive End Expiratory 5 Pressure Positive End Expiratory 5 Pressure Positive End Expiratory 5 Pressure Peak Inspiratory Airway 13 Pressure Peak Inspiratory Airway 13 Pressure Peak Inspiratory Airway 13 Pressure Peak Inspiratory Airway 14 Pressure Peak Inspiratory Airway 14 Pressure Peak Inspiratory Airway 14 Pressure Peak Inspiratory Airway 13 Pressure Peak Inspiratory Airway 13 Pressure Peak Inspiratory Airway 13 Pressure Peak Inspiratory Airway 13 Pressure Peak Inspiratory Airway 13 Pressure Results - Laboratory Findings CBC and BMP: 08/24/17 07:55 08/24/17 05:40 ABG ABG pH 7.34 pH Units (7.32-7.45) 08/23/17 10:51 ABG pCO2 61 mmHg (35-45) H 08/23/17 10:51 ABG pO2 152 mmHg (85-104) H 08/23/17 10:51 ABG O2 Saturation 99 % (95-98) H 08/23/17 10:51 PT/INR, D-dimer PT 12.8 Seconds (9.4-12.1) H 08/24/17 05:40 Abnormal lab findings: Abnormal lab results WBC 14.0 K/mcL (4.3-11.1) H 08/24/17 07:55 RBC 2.40 M/mcL (4.19-5.50) L 08/24/17 07:55 Hgb 7.0 g/dL (12.9-16.9) L D 08/24/17 07:55 Hct 21.8 % (37.5-50.1) L 08/24/17 07:55 RDW 15.9 % (11.5-14.5) H 08/24/17 07:55 Plt Count 101 K/mcL (140-400) L 08/24/17 07:55 MPV 12.6 fL (9.4-12.4) H 08/24/17 07:55 Neutrophils # 12.0 K/mcL (1.6-8.9) H 08/24/17 07:55 Nucleated RBCs/100 WBC 0.1 /100 WBC (0) H 08/23/17 04:30 Platelet Estimate Decreased (Normal) L 08/20/17 04:45 Immature Plt Fraction 10.3 % (1.1-6.1) H 08/24/17 07:55 ESR 28 mm/hr (0-10) H 08/23/17 21:20 PT 12.8 Seconds (9.4-12.1) H 08/24/17 05:40 APTT 39.5 Seconds (26.0-36.0) H 08/24/17 08:51 ABG pCO2 61 mmHg (35-45) H 08/23/17 10:51 ABG pO2 152 mmHg (85-104) H 08/23/17 10:51 ABG HCO3 33 mEq/L (21-27) H 08/23/17 10:51 ABG Total CO2 35 mEq/L (20-26) H 08/23/17 10:51 ABG O2 Saturation 99 % (95-98) H 08/23/17 10:51 ABG Base Excess 6 mEq/L (-2 to 3) H 08/23/17 10:51 BUN 79 mg/dL (8-26) H 08/24/17 05:40 Creatinine 2.67 mg/dL (0.72-1.25) H 08/24/17 05:40 Est GFR ( Amer) 28 (> 60) L 08/24/17 05:40 Est GFR (Non-Af Amer) 23 (> 60) L 08/24/17 05:40 BUN/Creatinine Ratio 30 (6-26) H 08/24/17 05:40 POC Glucose 131 (58-89) H 08/24/17 20:24 Hemoglobin A1c 7.4 % (-5.6) H 08/15/17 05:02 Calculated Osmolality 321 (280-300) H 08/24/17 05:40 Calcium 7.5 mg/dL (8.6-10.8) L 08/24/17 05:40 Ionized Calcium 1.09 mmol/L (1.15-1.35) L 08/24/17 05:40 Lactate Dehydrogenase 149 Units/L (159-327) L 08/24/17 08:51 Troponin I 1.08 ng/mL (0-0.03) H* 08/15/17 12:00 C-Reactive Protein 86 mg/L (Less than 5) H 08/23/17 13:48 Serum Total Protein 4.2 g/dL (6.0-8.3) L D 08/24/17 05:40 Albumin 1.7 g/dL (3.5-5.0) L D 08/24/17 05:40 Albumin/Globulin Ratio 0.7 (1.1-2.2) L 08/24/17 05:40 Urine Clarity Turbid (Clear) A 08/14/17 20:57 Urine Protein >=300 mg/dL (Neg-Trace) H 08/14/17 20:57 Urine Ketones Trace mg/dL (Negative) H 08/14/17 20:57 Urine Blood Large (Negative) H 08/14/17 20:57 Ur Leukocyte Esterase Large (Negative) H 08/14/17 20:57 Urine Microscopic RBC TNTC per hpf (0-3) H 08/14/17 20:57 Urine Microscopic WBC TNTC per hpf (0-3) H 08/14/17 20:57 Urine Yeast Few per hpf (None Seen) H 08/14/17 20:57 Ur Culture Indicated? YES (NO) A 08/14/17 20:57 Stool Occult Blood Positive (Negative) A 08/23/17 22:25 Vancomycin Trough 39.8 mcg/mL (10-20) H* 08/16/17 21:05 - Clinical Findings Intake & Output: Intake & Output 08/24/17 08/24/17 08/24/17 07:59 15:59 23:59 Intake Total 1175 / 1175 160 / 160 300 / 300 Output Total 400 / 400 457 / 457 Balance 775 / 775 160 / 160 -157 / -157 Weight 93.1 kg - Attending Attestation I saw the patient with the resident agree with History and Physical exam findings. 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: Patient is intubated following commands is on intermittent opioids NECK : No JVD appreciated Pulmonary : Patient has hypoxic respiratory failure secondary to fluid overload with bilateral pleural effusion will continue diuresis but will hold off today as he had new onset GI bleeding patient the whole night was on CPAP/PS patient tolerated well Cardiac : Hemodynamicaly stable , DC no invasive intervention for now Nutrition/GI: Patient had GI bleed which ended with acute blood loss anemia consulted surgery did endoscopy which showed bleeding gastric polyp will monitor for another 24 hrs Renal : Renal labs reviewed , output reviewed , Nephrology is following. Heme onc : Patient had GI bleed which lead to acute on chronic blood loss anemia ID : To continue Broad spectrum antibiotics , Vascular consulted for diabetic foot ulcer will need intervention will touch base with when he comes on saturday Musculo skeletal / skin issues : No acute issues Disposition : Critically ill Code status: DNRA Family/POA: Son Spent 32 minutes of Critical care time in making decisions to support vital organ function and prevent further decline. Patient continue to have ongoing critical care needs.
--- NOTE | 2017-08-24 10:20 | Palliative Progress Note ---
Date of Encounter: 08/24/17 Time of Encounter: 10:00 - Assessment and plan (1) Goals of care, counseling/discussion Current Visit: Yes Status: Acute Assessment and plan: Patient suffered cardiac arrest and now with multiple rib fractures. Patient has not tolerated CPAP trial well and patient now a DNRCC-A. Patient noted to have bloody stools overnight and now with GI bleed. Patient received 2 units PRBC last night. HGB 7.0 today. Plan to hold extubation for now. Case discussed with Dr. Poon. Patient with diabetic foot ulcers with bilateral foot and lower leg dressings on. (2) Acute respiratory failure Current Visit: Yes Status: Acute Assessment and plan: Patient remains intubated and mechanically ventilated. Extubation on hold d/t new GI bleed. Current settings FiO2 45%. Qualifiers: Respiratory failure complication: hypoxia Qualified Code(s): J96.01 - Acute respiratory failure with hypoxia (3) Nutrition impaired due to imbalance of nutrients Current Visit: Yes Status: Acute Assessment and plan: Patient Albumin and Protein low. Dietary consult obtained. Patient feedings on hold for GI bleed. Will monitor labs. Patient had bloody BMs overnight. Patient with diabetic wound and Wound care following. (4) Diabetic ulcer of both feet Current Visit: Yes Status: Chronic (5) Cardiac arrest Current Visit: Yes Status: Acute - Time Spent With Patient Total time spent is greater than 50% in coordination of care (as documented) at patient's floor/unit and/or counseling patient: 25 - 35 minutes - Subjective Interval history: Patient s/p cardiac arrest that required CPR. Patient with multiple rib fractures and patient is currently intubated and receiving mechanical intubation. Resting comfortable. No family at bedside. - Constitutional Vitals: Abnormal lab results WBC 14.0 K/mcL (4.3-11.1) H 08/24/17 07:55 RBC 2.40 M/mcL (4.19-5.50) L 08/24/17 07:55 Hgb 7.0 g/dL (12.9-16.9) L D 08/24/17 07:55 Hct 21.8 % (37.5-50.1) L 08/24/17 07:55 RDW 15.9 % (11.5-14.5) H 08/24/17 07:55 Plt Count 101 K/mcL (140-400) L 08/24/17 07:55 MPV 12.6 fL (9.4-12.4) H 08/24/17 07:55 Neutrophils # 12.0 K/mcL (1.6-8.9) H 08/24/17 07:55 Nucleated RBCs/100 WBC 0.1 /100 WBC (0) H 08/23/17 04:30 Platelet Estimate Decreased (Normal) L 08/20/17 04:45 Immature Plt Fraction 10.3 % (1.1-6.1) H 08/24/17 07:55 ESR 28 mm/hr (0-10) H 08/23/17 21:20 PT 12.8 Seconds (9.4-12.1) H 08/24/17 05:40 APTT 39.5 Seconds (26.0-36.0) H 08/24/17 08:51 ABG pCO2 61 mmHg (35-45) H 08/23/17 10:51 ABG pO2 152 mmHg (85-104) H 08/23/17 10:51 ABG HCO3 33 mEq/L (21-27) H 08/23/17 10:51 ABG Total CO2 35 mEq/L (20-26) H 08/23/17 10:51 ABG O2 Saturation 99 % (95-98) H 08/23/17 10:51 ABG Base Excess 6 mEq/L (-2 to 3) H 08/23/17 10:51 BUN 79 mg/dL (8-26) H 08/24/17 05:40 Creatinine 2.67 mg/dL (0.72-1.25) H 08/24/17 05:40 Est GFR ( Amer) 28 (> 60) L 08/24/17 05:40 Est GFR (Non-Af Amer) 23 (> 60) L 08/24/17 05:40 BUN/Creatinine Ratio 30 (6-26) H 08/24/17 05:40 POC Glucose 109 (58-89) H 08/24/17 07:20 Hemoglobin A1c 7.4 % (-5.6) H 08/15/17 05:02 Calculated Osmolality 321 (280-300) H 08/24/17 05:40 Calcium 7.5 mg/dL (8.6-10.8) L 08/24/17 05:40 Ionized Calcium 1.09 mmol/L (1.15-1.35) L 08/24/17 05:40 Lactate Dehydrogenase 149 Units/L (159-327) L 08/24/17 08:51 Troponin I 1.08 ng/mL (0-0.03) H* 08/15/17 12:00 C-Reactive Protein 86 mg/L (Less than 5) H 08/23/17 13:48 Serum Total Protein 4.2 g/dL (6.0-8.3) L D 08/24/17 05:40 Albumin 1.7 g/dL (3.5-5.0) L D 08/24/17 05:40 Albumin/Globulin Ratio 0.7 (1.1-2.2) L 08/24/17 05:40 Urine Clarity Turbid (Clear) A 08/14/17 20:57 Urine Protein >=300 mg/dL (Neg-Trace) H 08/14/17 20:57 Urine Ketones Trace mg/dL (Negative) H 08/14/17 20:57 Urine Blood Large (Negative) H 08/14/17 20:57 Ur Leukocyte Esterase Large (Negative) H 08/14/17 20:57 Urine Microscopic RBC TNTC per hpf (0-3) H 08/14/17 20:57 Urine Microscopic WBC TNTC per hpf (0-3) H 08/14/17 20:57 Urine Yeast Few per hpf (None Seen) H 08/14/17 20:57 Ur Culture Indicated? YES (NO) A 08/14/17 20:57 Stool Occult Blood Positive (Negative) A 08/23/17 22:25 Vancomycin Trough 39.8 mcg/mL (10-20) H* 08/16/17 21:05 - Head Head exam: Present: atraumatic - Eye Pupils: Present: PERRL - ENT ENT exam: Present: mucous membranes moist - Respiratory Respiratory exam: Present: decreased breath sounds - Expanded Respiratory Exam Location: decreased breath sounds: Left, Right, Lower - Cardiovascular Cardiovascular exam: Present: RRR, +S1, +S2 - GI/Abdominal GI/Abdominal exam: Present: soft - exam: Present: scrotal swelling - Extremities Exam Extremities exam: Present: tenderness - Neurological Exam Neurological exam: Present: altered - Psychiatric Psychiatric exam: Present: flat affect - Skin Skin exam: Present: pallor (bilateral dressing to lower legs CDI), warm Palliative Quality Palliative Quality: Screen for Code Status: Yes, Screen for Goals of Care: Yes, Screen for Pain: No, If Pain Regimen Started, Initiate Bowel Regimen: Yes, Screen for Nausea/Vomitting: No Code Status: 08/15/17 00:52 Resuscitation Status: Active [RES] Routine Comment: Resuscitation Status: Full Code 08/18/17 11:42 CODE [Resuscitation Status: Active] [RES] Routine Comment: Resuscitation Status: DNR-Comfort Care-Arrest - Labs CBC & Chem 7: 08/24/17 07:55 08/24/17 05:40 Labs: Laboratory Results - last 24 hr 08/23/17 08/23/17 08/23/17 10:51 11:13 13:48 WBC RBC Hgb Hct MCV MCH MCHC RDW Plt Count MPV Immature Gran % Seg Neutrophils % Lymphocytes % Monocytes % Eosinophils % Basophils % Neutrophils # Lymphocytes # Monocytes # Eosinophils # Basophils # Immature Plt Fraction ESR PT INR APTT Fibrinogen Sample Site R Brach ABG pH 7.34 ABG pCO2 61 H ABG pO2 152 H ABG HCO3 33 H ABG Total CO2 35 H ABG O2 Saturation 99 H ABG Base Excess 6 H Esteban Test N/A Respiration Rate 11 O2 Delivery Device Adult Vent Blood Gas Modality CPAP/PS Inspired O2 45.0 Tidal Volume 486 PEEP 5 Pressure Support 0 Sodium Potassium Chloride Carbon Dioxide BUN Creatinine Est GFR ( Amer) Est GFR (Non-Af Amer) BUN/Creatinine Ratio Glucose POC Glucose 179 H Calculated Osmolality Calcium Ionized Calcium 1.06 L Phosphorus Magnesium Total Bilirubin Direct Bilirubin Indirect Bilirubin AST ALT Alkaline Phosphatase Lactate Dehydrogenase C-Reactive Protein Serum Total Protein Albumin Globulin Albumin/Globulin Ratio Stool Occult Blood Random Vancomycin Blood Type Antibody Screen Crossmatch 08/23/17 08/23/17 08/23/17 13:48 15:26 20:27 WBC RBC Hgb Hct MCV MCH MCHC RDW Plt Count MPV Immature Gran % Seg Neutrophils % Lymphocytes % Monocytes % Eosinophils % Basophils % Neutrophils # Lymphocytes # Monocytes # Eosinophils # Basophils # Immature Plt Fraction ESR PT INR APTT Fibrinogen Sample Site ABG pH ABG pCO2 ABG pO2 ABG HCO3 ABG Total CO2 ABG O2 Saturation ABG Base Excess Esteban Test Respiration Rate O2 Delivery Device Blood Gas Modality Inspired O2 Tidal Volume PEEP Pressure Support Sodium Potassium Chloride Carbon Dioxide BUN Creatinine Est GFR ( Amer) Est GFR (Non-Af Amer) BUN/Creatinine Ratio Glucose POC Glucose 209 H 198 H Calculated Osmolality Calcium Ionized Calcium Phosphorus Magnesium Total Bilirubin Direct Bilirubin Indirect Bilirubin AST ALT Alkaline Phosphatase Lactate Dehydrogenase C-Reactive Protein 86 H Serum Total Protein Albumin Globulin Albumin/Globulin Ratio Stool Occult Blood Random Vancomycin Blood Type Antibody Screen Crossmatch 08/23/17 08/23/17 08/23/17 21:07 21:07 21:20 WBC 13.4 H RBC 1.74 L Hgb 5.0 L* D Hct 16.3 L MCV 93.7 MCH 28.7 MCHC 30.7 L RDW 17.1 H Plt Count 75 L MPV 12.8 H Immature Gran % 0.7 Seg Neutrophils % 87.4 Lymphocytes % 3.9 Monocytes % 7.3 Eosinophils % 0.6 Basophils % 0.1 Neutrophils # 11.7 H Lymphocytes # 0.5 L Monocytes # 1.0 Eosinophils # 0.1 Basophils # 0.0 Immature Plt Fraction ESR 28 H PT 14.2 H INR 1.3 APTT 45.9 H Fibrinogen Sample Site ABG pH ABG pCO2 ABG pO2 ABG HCO3 ABG Total CO2 ABG O2 Saturation ABG Base Excess Esteban Test Respiration Rate O2 Delivery Device Blood Gas Modality Inspired O2 Tidal Volume PEEP Pressure Support Sodium Potassium Chloride Carbon Dioxide BUN Creatinine Est GFR ( Amer) Est GFR (Non-Af Amer) BUN/Creatinine Ratio Glucose POC Glucose Calculated Osmolality Calcium Ionized Calcium Phosphorus Magnesium Total Bilirubin Direct Bilirubin Indirect Bilirubin AST ALT Alkaline Phosphatase Lactate Dehydrogenase C-Reactive Protein Serum Total Protein Albumin Globulin Albumin/Globulin Ratio Stool Occult Blood Random Vancomycin Blood Type Antibody Screen Crossmatch 08/23/17 08/23/17 08/23/17 21:51 21:51 22:25 WBC RBC Hgb Hct MCV MCH MCHC RDW Plt Count MPV Immature Gran % Seg Neutrophils % Lymphocytes % Monocytes % Eosinophils % Basophils % Neutrophils # Lymphocytes # Monocytes # Eosinophils # Basophils # Immature Plt Fraction ESR PT INR APTT Fibrinogen Sample Site ABG pH ABG pCO2 ABG pO2 ABG HCO3 ABG Total CO2 ABG O2 Saturation ABG Base Excess Esteban Test Respiration Rate O2 Delivery Device Blood Gas Modality Inspired O2 Tidal Volume PEEP Pressure Support Sodium Potassium Chloride Carbon Dioxide BUN Creatinine Est GFR ( Amer) Est GFR (Non-Af Amer) BUN/Creatinine Ratio Glucose POC Glucose Calculated Osmolality Calcium Ionized Calcium 1.11 L Phosphorus Magnesium Total Bilirubin Direct Bilirubin Indirect Bilirubin AST ALT Alkaline Phosphatase Lactate Dehydrogenase C-Reactive Protein Serum Total Protein Albumin Globulin Albumin/Globulin Ratio Stool Occult Blood Positive A Random Vancomycin Blood Type O POSITIVE Antibody Screen NEGATIVE Crossmatch See Detail 08/23/17 08/24/17 08/24/17 23:38 03:37 05:40 WBC RBC Hgb Hct MCV MCH MCHC RDW Plt Count MPV Immature Gran % Seg Neutrophils % Lymphocytes % Monocytes % Eosinophils % Basophils % Neutrophils # Lymphocytes # Monocytes # Eosinophils # Basophils # Immature Plt Fraction ESR PT 12.8 H INR 1.2 APTT Fibrinogen Sample Site ABG pH ABG pCO2 ABG pO2 ABG HCO3 ABG Total CO2 ABG O2 Saturation ABG Base Excess Esteban Test Respiration Rate O2 Delivery Device Blood Gas Modality Inspired O2 Tidal Volume PEEP Pressure Support Sodium Potassium Chloride Carbon Dioxide BUN Creatinine Est GFR ( Amer) Est GFR (Non-Af Amer) BUN/Creatinine Ratio Glucose POC Glucose 167 H 113 H Calculated Osmolality Calcium Ionized Calcium Phosphorus Magnesium Total Bilirubin Direct Bilirubin Indirect Bilirubin AST ALT Alkaline Phosphatase Lactate Dehydrogenase C-Reactive Protein Serum Total Protein Albumin Globulin Albumin/Globulin Ratio Stool Occult Blood Random Vancomycin Blood Type Antibody Screen Crossmatch 08/24/17 08/24/17 08/24/17 05:40 05:40 07:20 WBC RBC Hgb Hct MCV MCH MCHC RDW Plt Count MPV Immature Gran % Seg Neutrophils % Lymphocytes % Monocytes % Eosinophils % Basophils % Neutrophils # Lymphocytes # Monocytes # Eosinophils # Basophils # Immature Plt Fraction ESR PT INR APTT Fibrinogen Sample Site ABG pH ABG pCO2 ABG pO2 ABG HCO3 ABG Total CO2 ABG O2 Saturation ABG Base Excess Esteban Test Respiration Rate O2 Delivery Device Blood Gas Modality Inspired O2 Tidal Volume PEEP Pressure Support Sodium 144 Potassium 4.3 Chloride 106 Carbon Dioxide 29 BUN 79 H Creatinine 2.67 H Est GFR ( Amer) 28 L Est GFR (Non-Af Amer) 23 L BUN/Creatinine Ratio 30 H Glucose 93 POC Glucose 109 H Calculated Osmolality 321 H Calcium 7.5 L Ionized Calcium 1.09 L Phosphorus 3.7 Magnesium 1.7 Total Bilirubin 0.9 Direct Bilirubin 0.5 Indirect Bilirubin 0.4 AST 16 ALT 18 Alkaline Phosphatase 77 Lactate Dehydrogenase C-Reactive Protein Serum Total Protein 4.2 L D Albumin 1.7 L D Globulin 2.5 Albumin/Globulin Ratio 0.7 L Stool Occult Blood Random Vancomycin 28.0 Blood Type Antibody Screen Crossmatch 08/24/17 08/24/17 08/24/17 07:55 08:51 08:51 WBC 14.0 H RBC 2.40 L Hgb 7.0 L D Hct 21.8 L MCV 90.8 MCH 29.2 MCHC 32.1 RDW 15.9 H Plt Count 101 L MPV 12.6 H Immature Gran % 0.6 Seg Neutrophils % 85.9 Lymphocytes % 4.9 Monocytes % 8.1 Eosinophils % 0.4 Basophils % 0.1 Neutrophils # 12.0 H Lymphocytes # 0.7 Monocytes # 1.1 Eosinophils # 0.1 Basophils # 0.0 Immature Plt Fraction 10.3 H ESR PT INR APTT 39.5 H Fibrinogen 378 Sample Site ABG pH ABG pCO2 ABG pO2 ABG HCO3 ABG Total CO2 ABG O2 Saturation ABG Base Excess Esteban Test Respiration Rate O2 Delivery Device Blood Gas Modality Inspired O2 Tidal Volume PEEP Pressure Support Sodium Potassium Chloride Carbon Dioxide BUN Creatinine Est GFR ( Amer) Est GFR (Non-Af Amer) BUN/Creatinine Ratio Glucose POC Glucose Calculated Osmolality Calcium Ionized Calcium Phosphorus Magnesium Total Bilirubin Direct Bilirubin Indirect Bilirubin AST ALT Alkaline Phosphatase Lactate Dehydrogenase 149 L C-Reactive Protein Serum Total Protein Albumin Globulin Albumin/Globulin Ratio Stool Occult Blood Random Vancomycin Blood Type Antibody Screen Crossmatch - ABG Interpretation ABG results: ABG ABG pH 7.34 pH Units (7.32-7.45) 08/23/17 10:51 ABG pCO2 61 mmHg (35-45) H 08/23/17 10:51 ABG pO2 152 mmHg (85-104) H 08/23/17 10:51 ABG O2 Saturation 99 % (95-98) H 08/23/17 10:51 PT/INR, D-dimer PT 12.8 Seconds (9.4-12.1) H 08/24/17 05:40 Consult Discharge Plan - Plan Referrals: Poncho Noriega MD [Primary Care Provider] -
--- NOTE | 2017-08-24 12:22 | General Surgery Consult Note ---
Date of Encounter: 08/24/17 Time of Encounter: 12:22 Assessment and Plan (1) Melena Current Visit: Yes Status: Acute On current evaluation the patient was noted to have another episode of melena. Given the dark appearance of the stool I do think it would initially be appropriate to proceed with an EGD in the ICU setting. I have spoken with his son to obtain consent for the procedure. History of Present Illness Consult date: 08/24/17 Requesting physician: Ronit James History of present illness: The patient is a 77 year old male with a past medical history significant for COPD, CAD, HTN, and diabetes mellitus, who presented to [facility] on 08/15/17 after suffering a cadiopulmonary arrest at an ECF. The etiology behind his arrest is uncertain, and he has been intubated an followed by critical care as well as cardiology. The patient has a history of acute on chronic kidney disease as well. Upon admission his Hgb was noted to be 8.1 and has remained low. He has had a blood transfusion and has continued to have a rather low Hgb level between 6.7-8.3 (additionally, he is 9,950ml positive since arrival). Yesterday he was noted to have melanotic stool with an abrut decrease in his Hgb from 7.3 yesterday morning to 5.0 late yesterday evening. The patient is not responsive and there is no known GI history or symptomatology. I have been asked to evaluate the patient given his recent bout of melena. Of note; he was started on IV heparin for several days last week during his initial cardiology evaluation. Past Med Surg Social Fam HX - Past Medical History Medical history: COPD, coronary artery disease, diabetes, hyperlipidemia, hypertension, other (Osteomyelitis left heel) Psychiatric history: no psych history - Past Surgical History Surgical History: no surgical history - Social History Smoking Status: Unknown if ever smoked Smokeless Tobacco Status: No Alcohol use: none Drug use: none - Family History Mother Family Member Ethnicity: Non- Living Status: Hx Family Cardiac Disorders: Yes (CAD) Hx Family Endocrine Disorder: Yes (DM) Father Family Member Ethnicity: Non- Living Status: Hx Family Cardiac Disorders: Yes (HD) Hx Family Respiratory Disorders: Yes (Emphysema) Brother Family Member Ethnicity: Non- Living Status: Still Living Hx Family Cardiac Disorders: Yes (HD, HTN) Hx Family Endocrine Disorder: Yes (DM) Sister Family Member Ethnicity: Non- Living Status: Hx Family Endocrine Disorder: Yes (DM) Medications and Allergies Aspirin 325 mg PO DAILY tablet 08/07/17 [Rx] Atorvastatin [Lipitor] 40 mg PO HS tablet 08/07/17 [Rx] Carvedilol [Coreg] 25 mg PO BIDWM tablet 08/07/17 [Rx] Clopidogrel [Plavix] 75 mg PO DAILY tablet 08/07/17 [Rx] Furosemide [Lasix] 40 mg PO DAILY tablet 08/07/17 [Rx] Lisinopril [Zestril] 2.5 mg PO DAILY tablet 08/07/17 [Rx] Magnesium Oxide [Mag-Ox] 400 mg PO DAILY tablet 08/07/17 [Rx] Nitroglycerin 0.4 mg SL Q5MIN PRN tab.subl 08/07/17 [Rx] Omeprazole [PriLOSEC] 20 mg PO DAILY@0630 capsule.dr 08/07/17 [Rx] OxyCODONE Immed Rel [Roxicodone 5 MG] 10 mg PO Q8HR PRN #10 tablet 08/07/17 [Rx] Potassium Chloride 20 meq PO DAILY tab.er.prt 08/07/17 [Rx] Zinc Sulfate 220 mg PO DAILY capsule 08/07/17 [Rx] amLODIPine [Norvasc] 10 mg PO DAILY tablet 08/07/17 [Rx] Clotrimazole/Betamethasone Dip [Lotrisone Cream] 1 appl TP DAILY 08/15/17 [ History] Collagenase Oint [Santyl] 1 appl TP BID 08/15/17 [History] Insulin LISPRO [HumaLOG] 0 units SQ TID PRN 08/15/17 [History] Levofloxacin 750 MG/150 ML [Levaquin Premix 750mg/150 mL] 750 mg IVPB DAILY 11/30 [History] Melatonin 5 mg PO HS 08/15/17 [History] Vancomycin/0.9 % Sod Chloride [Vanco 1.25 gm/250 ml-0.9% NaCl] 1.25 gm IV DAILY 08/15/17 [History] 3 Allergy/AdvReac Type Severity Reaction Status Date / Time No Known Allergies Allergy Verified 07/03/15 17:42 Review of Systems All systems PM: reviewed and no additional remarkable complaints except as stated All systems PM: A 10-system review of systems was performed and is negative for pertinent findings except as documented above in the HPI. General Surgery Exam Initial Vital Signs Temp Pulse Resp BP Pulse Ox 0 F L 0 0 0/0 0 08/14/17 20:11 08/14/17 20:11 08/14/17 20:11 08/14/17 20:11 08/14/17 20:11 - Eyes other (non-icteric. Eyes closed. Patient intubated.) - Neck no masses, trachea midline, no lymphadectomy - Respiratory normal expansion, normal respiratory effort (decreased breath sounds bilaterally ) - Cardiovascular Cardiovascular exam: Present: RRR, no murmurs/rubs/gallops - Abdomen Abdomen general surgery: Present: bowel sounds present, soft, non tender ( Unable to appreciate evidence of abdominal pain) - Neurologic Present: other (non-responsive) - Musculoskeletal Present: other (Positive pitting edema) Exam Initial Vital Signs Temp Pulse Resp BP Pulse Ox 0 F L 0 0 0/0 0 08/14/17 20:11 08/14/17 20:11 08/14/17 20:11 08/14/17 20:11 08/14/17 20:11 Results - Labs 08/24/17 07:55 08/24/17 05:40 Abnormal lab results WBC 14.0 K/mcL (4.3-11.1) H 08/24/17 07:55 RBC 2.40 M/mcL (4.19-5.50) L 08/24/17 07:55 Hgb 7.0 g/dL (12.9-16.9) L D 08/24/17 07:55 Hct 21.8 % (37.5-50.1) L 08/24/17 07:55 RDW 15.9 % (11.5-14.5) H 08/24/17 07:55 Plt Count 101 K/mcL (140-400) L 08/24/17 07:55 MPV 12.6 fL (9.4-12.4) H 08/24/17 07:55 Neutrophils # 12.0 K/mcL (1.6-8.9) H 08/24/17 07:55 Nucleated RBCs/100 WBC 0.1 /100 WBC (0) H 08/23/17 04:30 Platelet Estimate Decreased (Normal) L 08/20/17 04:45 Immature Plt Fraction 10.3 % (1.1-6.1) H 08/24/17 07:55 ESR 28 mm/hr (0-10) H 08/23/17 21:20 PT 12.8 Seconds (9.4-12.1) H 08/24/17 05:40 APTT 39.5 Seconds (26.0-36.0) H 08/24/17 08:51 ABG pCO2 61 mmHg (35-45) H 08/23/17 10:51 ABG pO2 152 mmHg (85-104) H 08/23/17 10:51 ABG HCO3 33 mEq/L (21-27) H 08/23/17 10:51 ABG Total CO2 35 mEq/L (20-26) H 08/23/17 10:51 ABG O2 Saturation 99 % (95-98) H 08/23/17 10:51 ABG Base Excess 6 mEq/L (-2 to 3) H 08/23/17 10:51 BUN 79 mg/dL (8-26) H 08/24/17 05:40 Creatinine 2.67 mg/dL (0.72-1.25) H 08/24/17 05:40 Est GFR ( Amer) 28 (> 60) L 08/24/17 05:40 Est GFR (Non-Af Amer) 23 (> 60) L 08/24/17 05:40 BUN/Creatinine Ratio 30 (6-26) H 08/24/17 05:40 POC Glucose 142 (58-89) H 08/24/17 10:57 Hemoglobin A1c 7.4 % (-5.6) H 08/15/17 05:02 Calculated Osmolality 321 (280-300) H 08/24/17 05:40 Calcium 7.5 mg/dL (8.6-10.8) L 08/24/17 05:40 Ionized Calcium 1.09 mmol/L (1.15-1.35) L 08/24/17 05:40 Lactate Dehydrogenase 149 Units/L (159-327) L 08/24/17 08:51 Troponin I 1.08 ng/mL (0-0.03) H* 08/15/17 12:00 C-Reactive Protein 86 mg/L (Less than 5) H 08/23/17 13:48 Serum Total Protein 4.2 g/dL (6.0-8.3) L D 08/24/17 05:40 Albumin 1.7 g/dL (3.5-5.0) L D 08/24/17 05:40 Albumin/Globulin Ratio 0.7 (1.1-2.2) L 08/24/17 05:40 Urine Clarity Turbid (Clear) A 08/14/17 20:57 Urine Protein >=300 mg/dL (Neg-Trace) H 08/14/17 20:57 Urine Ketones Trace mg/dL (Negative) H 08/14/17 20:57 Urine Blood Large (Negative) H 08/14/17 20:57 Ur Leukocyte Esterase Large (Negative) H 08/14/17 20:57 Urine Microscopic RBC TNTC per hpf (0-3) H 08/14/17 20:57 Urine Microscopic WBC TNTC per hpf (0-3) H 08/14/17 20:57 Urine Yeast Few per hpf (None Seen) H 08/14/17 20:57 Ur Culture Indicated? YES (NO) A 08/14/17 20:57 Stool Occult Blood Positive (Negative) A 08/23/17 22:25 Vancomycin Trough 39.8 mcg/mL (10-20) H* 08/16/17 21:05 Diabetes panel 08/24/17 Range/Units 05:40 Sodium 144 (136-145) mEq/L Potassium 4.3 (3.5-4.5) mEq/L Chloride 106 (98-109) mEq/L Carbon Dioxide 29 (19-29) mEq/L BUN 79 H (8-26) mg/dL Creatinine 2.67 H (0.72-1.25) mg/dL Glucose 93 (70-99) mg/dL Calcium 7.5 L (8.6-10.8) mg/dL AST 16 (5-34) Units/L ALT 18 (0-55) Units/L Alkaline Phosphatase 77 (38-126) Units/L Albumin 1.7 L D (3.5-5.0) g/dL Calcium panel 08/24/17 Range/Units 05:40 Calcium 7.5 L (8.6-10.8) mg/dL Phosphorus 3.7 (2.3-4.7) mg/dL Albumin 1.7 L D (3.5-5.0) g/dL Pituitary panel 08/24/17 Range/Units 05:40 Sodium 144 (136-145) mEq/L Potassium 4.3 (3.5-4.5) mEq/L Chloride 106 (98-109) mEq/L Carbon Dioxide 29 (19-29) mEq/L BUN 79 H (8-26) mg/dL Creatinine 2.67 H (0.72-1.25) mg/dL Glucose 93 (70-99) mg/dL Calcium 7.5 L (8.6-10.8) mg/dL Adrenal panel 08/24/17 Range/Units 05:40 Sodium 144 (136-145) mEq/L Potassium 4.3 (3.5-4.5) mEq/L Chloride 106 (98-109) mEq/L Carbon Dioxide 29 (19-29) mEq/L BUN 79 H (8-26) mg/dL Creatinine 2.67 H (0.72-1.25) mg/dL Glucose 93 (70-99) mg/dL Calcium 7.5 L (8.6-10.8) mg/dL Total Bilirubin 0.9 (0.2-1.2) mg/dL AST 16 (5-34) Units/L ALT 18 (0-55) Units/L Alkaline Phosphatase 77 (38-126) Units/L Albumin 1.7 L D (3.5-5.0) g/dL All other labs normal. Consult Discharge Plan - Plan Referrals: Poncho Noriega MD [Primary Care Provider] -
[2017-08-24] MEDS ORDERED: *HR* Midazolam HCl 5 MG/5 ML VIAL IVP ONE ×2 (14:54→15:57)
[2017-08-24] MEDS ORDERED: *HR* FentaNYL (PF) 100 MCG/2 ML VIAL ONE (14:54)
[2017-08-24] MEDS ORDERED: *HR* FentaNYL (PF) 100 MCG/2 ML VIAL IVP ONE (15:15)
--- NOTE | 2017-08-24 15:37 | Event Note ---
Date of Encounter: 08/24/17 Time of Encounter: 15:35 EGD performed. Noted small polyps within the stomach. There was clot present and beneath the clot was an small polyp with oozing at the base. The polyp was removed and the bleeding controlled by cautery. Repeat evaluation demonstrated no further bleeding. No evidence of a gastric or duodenal ulcer. Recommend placing NGT to gravity drainage. Continue with PPIs. Consider adding carafate via NGT.
--- NOTE | 2017-08-24 17:20 | Vascular/Endovasc Consult Note ---
Date of Encounter: 08/24/17 Time of Encounter: 15:00 Assessment and Plan (1) Diabetic ulcer of both feet Current Visit: Yes Status: Chronic Patient has known bilateral lower extremity foot ulcers. He is status post intervention for the right lower extremity approximately one month ago. His arterial anatomy would permit an attempt at endovascular intervention for the left lower extremity. However the patient overall clinical status would me need to be dramatically improved before such intervention would be entertained. Dr. Bernard will return on Saturday and if further vascular consultation is deemed appropriate please reconsult at that time as the present clinical situation would argue against any vascular surgery intervention. (2) Cardiac arrest Current Visit: Yes Status: Acute (3) Broken ribs Current Visit: Yes Status: Acute Qualifiers: Encounter type: initial encounter Rib fracture type: multiple ribs Fracture type: closed Laterality: bilateral Qualified Code(s): S22.43XA - Multiple fractures of ribs, bilateral, initial encounter for closed fracture (4) Shock Current Visit: Yes Status: Acute - History of Present Illness Consult date: 08/24/17 Consult reason: PAD with lower extremity ulcers History of present illness: Mr. Mayorga is a 77 year old male Was admitted with a cardiac arrest a number of days ago. He has required intubation and vasopressor therapy. The patient has stabilized but his overall physical status remains poor. He is a known patient of Dr. Bernard's. He was seen in consult by Dr. Bernard in early July. Noninvasive tests were performed because of these ulcerations of his feet. An ankle-brachial index was measured at 0.48 on the right and 0.54 on the left. He then underwent an angiogram on July 17. This demonstrated significant bilateral lower extremity occlusive disease. An intervention was performed on the right superficial femoral and popliteal artery lesions. On the left side he was found to have an occluded superficial femoral artery as well as occlusion of the posterior tibial and peroneal artery and areas of focal disease in the anterior tibial artery. He was tentatively recommended to return for intervention. His clinical status obviously deteriorated and he never had the return trip to the angiogram suite for left lower extremity intervention. At this time the patient has multiple ongoing issues and it remains intubated on pressure support. He is also being followed by podiatry for the foot wounds. He had an upper GI endoscopy performed today by Dr. Norton. He is also followed by palliative care and he is in a DNR status at this time. Past Med Surg Social Fam HX - Past Medical History Medical history: COPD, coronary artery disease, diabetes, hyperlipidemia, hypertension, other (Osteomyelitis left heel) Psychiatric history: no psych history - Past Surgical History Surgical History: no surgical history, LE vascular intervention (Angiogram and right lower extremity intervention by Dr. Bernard July 2017.) - Social History Smoking Status: Unknown if ever smoked Smokeless Tobacco Status: No Alcohol use: none Drug use: none - Family History Mother Family Member Ethnicity: Non- Living Status: Hx Family Cardiac Disorders: Yes (CAD) Hx Family Endocrine Disorder: Yes (DM) Father Family Member Ethnicity: Non- Living Status: Hx Family Cardiac Disorders: Yes (HD) Hx Family Respiratory Disorders: Yes (Emphysema) Brother Family Member Ethnicity: Non- Living Status: Still Living Hx Family Cardiac Disorders: Yes (HD, HTN) Hx Family Endocrine Disorder: Yes (DM) Sister Family Member Ethnicity: Non- Living Status: Hx Family Endocrine Disorder: Yes (DM) Medications and Allergies Aspirin 325 mg PO DAILY tablet 08/07/17 [Rx] Atorvastatin [Lipitor] 40 mg PO HS tablet 08/07/17 [Rx] Carvedilol [Coreg] 25 mg PO BIDWM tablet 08/07/17 [Rx] Clopidogrel [Plavix] 75 mg PO DAILY tablet 08/07/17 [Rx] Furosemide [Lasix] 40 mg PO DAILY tablet 08/07/17 [Rx] Lisinopril [Zestril] 2.5 mg PO DAILY tablet 08/07/17 [Rx] Magnesium Oxide [Mag-Ox] 400 mg PO DAILY tablet 08/07/17 [Rx] Nitroglycerin 0.4 mg SL Q5MIN PRN tab.subl 08/07/17 [Rx] Omeprazole [PriLOSEC] 20 mg PO DAILY@0630 capsule. 08/07/17 [Rx] OxyCODONE Immed Rel [Roxicodone 5 MG] 10 mg PO Q8HR PRN #10 tablet 08/07/17 [Rx] Potassium Chloride 20 meq PO DAILY tab.er.prt 08/07/17 [Rx] Zinc Sulfate 220 mg PO DAILY capsule 08/07/17 [Rx] amLODIPine [Norvasc] 10 mg PO DAILY tablet 08/07/17 [Rx] Clotrimazole/Betamethasone Dip [Lotrisone Cream] 1 appl TP DAILY 08/15/17 [ History] Collagenase Oint [Santyl] 1 appl TP BID 08/15/17 [History] Insulin LISPRO [HumaLOG] 0 units SQ TID PRN 08/15/17 [History] Levofloxacin 750 MG/150 ML [Levaquin Premix 750mg/150 mL] 750 mg IVPB DAILY 11/30 [History] Melatonin 5 mg PO HS 08/15/17 [History] Vancomycin/0.9 % Sod Chloride [Vanco 1.25 gm/250 ml-0.9% NaCl] 1.25 gm IV DAILY 08/15/17 [History] 3 Allergy/AdvReac Type Severity Reaction Status Date / Time No Known Allergies Allergy Verified 07/03/15 17:42 All Systems Review: A 10-system review of systems was performed and is negative for pertinent findings except as documented above in the HPI. Exam Vital Signs, Last 4 Hours Pulse Pulse Pulse Pulse Pulse Resp Resp 08/24/17 16:19 13 08/24/17 15:07 67 61 60 61 13 08/24/17 14:06 12 08/24/17 14:00 68 13 Resp Resp BP BP BP BP BP 08/24/17 16:19 08/24/17 15:07 12 12 142/66 130/69 122/61 120/60 08/24/17 14:06 08/24/17 14:00 145/72 Pulse Ox 08/24/17 16:19 100 08/24/17 15:07 08/24/17 14:06 100 08/24/17 14:00 100 General: Present: Other (Patient is seen in the intensive care unit bed #7. He is intubated. He is on pressure support. He is nonresponsive to verbal or tactile manipulation.) Vascular: Present: Pulse, absent, Edema (Patient has bilateral lower extremity edema) Skin: Present: No rashes noted on visualized skin, Wound/ulcer(s) (The dressing of the left foot was removed. The patient has a deep but clean ulcer of the left heel. This is being treated and followed by podiatry with chemical enzymatic debridement.) Consult Discharge Plan - Plan Referrals: Poncho Noriega MD [Primary Care Provider] -
[2017-08-25] MEDS: Piperacillin/Tazobactam 3.375 GM in D5% in Water 50 ML IVPB SCH ×3 (00:23→15:49)
[2017-08-25] MEDS: Insulin LISPRO 300 UNITS/3 ML VIAL SQ SCH ×6 (00:23→19:42)
[2017-08-25] MEDS: Lacri-Lube 3.5 GM TUBE BOTH EYES SCH ×6 (00:24→19:43)
[2017-08-25 00:28] LABS: Hematocrit 20.8 % (37.5-50.1); Hemoglobin 6.6 g/dL (12.9-16.9)
[2017-08-25] MEDS ORDERED: 0.9 % Sodium Chloride 250 ML ONE (01:15)
[2017-08-25 04:28] LABS: INR 1.2; Prothrombin Time 12.5 Seconds (9.4-12.1)
[2017-08-25 04:35] LABS: Ionized Calcium 1.06 mmol/L (1.15-1.35)
[2017-08-25 04:36] LABS: Calcium 7.9 mg/dL (8.6-10.8); Magnesium 2.1 mg/dL (1.6-2.6); Phosphorous 4.7 mg/dL (2.3-4.7); Potassium 4.3 mEq/L (3.5-4.5)
[2017-08-25 04:37] LABS: Albumin/Globulin Ratio 0.8 (1.1-2.2); Bilirubin,Direct 0.5 mg/dL (0.0-0.5); Bilirubin,Indirect 0.4 mg/dL (0.0-1.2); Bilirubin,Total 0.9 mg/dL (0.2-1.2); Globulin 2.6 g/dL (2.4-3.5); Total Protein 4.7 g/dL (6.0-8.3)
[2017-08-25] MEDS: Pantoprazole 80 MG in 0.9 % Sodium Chloride 250 ML IVC SCH ×2 (04:45→18:07)
[2017-08-25 04:52] LABS: Albumin 2.1 g/dL (3.5-5.0)
--- NOTE | 2017-08-25 07:32 | Pulmonology Progress Note ---
<Kinsey Mcrae - Last Filed: 08/25/17 09:47> Date of Encounter: 08/25/17 Time of Encounter: 07:32 Assessment and Plan (1) Acute respiratory failure Current Visit: Yes Status: Acute Remains intubated on CPAP. ABG ordered for tomorrow morning. Attending reviewed vent settings at bedside. Qualifiers: Respiratory failure complication: hypoxia Qualified Code(s): J96.01 - Acute respiratory failure with hypoxia (2) Melena Current Visit: Yes Status: Acute Required 2 Units overnight, responded appropriately based on post-transfusion H/ H Surgery on consult, appreciate recs. Agree that patient patient may not have been fully compensated from the initial transfusion. Radha to order bowel prep via the NGT to "washout" any residual dark or melanotic stool. Will continually monitor, with timed CBC. (3) Acute kidney injury Current Visit: Yes Status: Acute YUMIKO in setting of cardiac arrest and hypovolemia 08/24/17 Cr: 2.67. 08/25/17 Cr: 2.86 Monitoring renal function with timed BMP. Nephrology on consult, and appreciate recs: No immediate need for dialysis. Avoid nephrotoxins. Documented urine output 950cc. Renal fct stable, creat 2.86, K 4.3. Will continue to monitor. Remain on electrolyte protocol orders (4) Cardiac arrest Current Visit: Yes Status: Acute Considering 2/2 to ACS. Remains hemodynamically stable. On statin. Continue to monitor on tele. Will re-start aspirin pt's home dose, as unlikely the H/H reflects an active bleed. (5) Diabetic ulcer of both feet Current Visit: Yes Status: Chronic Known bilateral lower extremity foot ulcer staus post intervention for the right lower extremity approximately one month ago. Previous Ankle-brachial index was measured at 0.48 on the right and 0.54 on the left, per endovascular note. Vasoendovascular team on consult, appreciate recs: Dr. Bernard will return on Saturday and if further vascular consultation is deemed appropriate please reconsult at that time as the present clinical situation would argue against any vascular surgery intervention. Agree pt's current clinical status not conducive for intervention now. Will re- consult during this week ID and podiatry consult, appreciae recs (6) Septic shock Current Visit: Yes Status: Resolved Continue management. (7) Goals of care, counseling/discussion Current Visit: Yes Status: Acute Recommend patient's code status and specification of intubation, prior to extubation Subjective Principal diagnosis: Cardiac Arrest Interval history: Pt required 2 U overnight. Repeat H/H ordered this morning. Objective PUL Vital signs: Last Vital Signs Temp 97.6 F 08/25/17 06:10 Pulse 78 08/25/17 06:10 Resp 16 08/25/17 06:10 BP 142/64 08/25/17 06:10 Pulse Ox 98 08/25/17 06:00 General appearance: no acute distress Eyes: nonicteric ENT: other (endotracheal tube in place) Neck: supple Auscultation: bilateral: other (coarse breath sounds) Cardiovascular: regular rate and rhythm Gastrointestinal: hypoactive bowel sounds, soft, non-tender, non-distended Integumentary: other (dressing in place on b/l ankle, on L side extending thigh. Boots in place ) Extremities: edema (pedal ) unable to assess due to mental status Ventilator Settings Ventilator Settings: Ventilator Settings, Last 8 Hours Ventilator Mode CPAP Ventilator Mode CPAP Ventilator Mode CPAP Ventilator Mode CPAP Ventilator Mode CPAP Ventilator Mode CPAP Ventilator Mode CPAP Ventilator Mode CPAP Ventilator Mode CPAP Ventilator Mode CPAP Ventilator Mode CPAP Actual Respiratory Rate 17 Actual Respiratory Rate 17 Actual Respiratory Rate 18 Actual Respiratory Rate 15 Actual Respiratory Rate 17 Actual Respiratory Rate 14 Actual Respiratory Rate 15 Actual Respiratory Rate 20 Actual Respiratory Rate 18 Actual Respiratory Rate 18 Actual Respiratory Rate 21 Positive End Expiratory 5 Pressure Positive End Expiratory 5 Pressure Positive End Expiratory 5 Pressure Positive End Expiratory 5 Pressure Positive End Expiratory 5 Pressure Positive End Expiratory 5 Pressure Positive End Expiratory 5 Pressure Positive End Expiratory 5 Pressure Positive End Expiratory 5 Pressure Positive End Expiratory 5 Pressure Positive End Expiratory 5 Pressure Peak Inspiratory Airway 13 Pressure Peak Inspiratory Airway 13 Pressure Peak Inspiratory Airway 13 Pressure Peak Inspiratory Airway 13 Pressure Peak Inspiratory Airway 13 Pressure Peak Inspiratory Airway 13 Pressure Peak Inspiratory Airway 13 Pressure Peak Inspiratory Airway 13 Pressure Peak Inspiratory Airway 13 Pressure Peak Inspiratory Airway 13 Pressure Peak Inspiratory Airway 13 Pressure Results - Laboratory Findings CBC and BMP: 08/25/17 08:25 08/25/17 04:15 ABG ABG pH 7.34 pH Units (7.32-7.45) 08/23/17 10:51 ABG pCO2 61 mmHg (35-45) H 08/23/17 10:51 ABG pO2 152 mmHg (85-104) H 08/23/17 10:51 ABG O2 Saturation 99 % (95-98) H 08/23/17 10:51 PT/INR, D-dimer PT 12.5 Seconds (9.4-12.1) H 08/25/17 04:15 Abnormal lab findings: Abnormal lab results WBC 14.0 K/mcL (4.3-11.1) H 08/24/17 07:55 RBC 2.40 M/mcL (4.19-5.50) L 08/24/17 07:55 Hgb 6.6 g/dL (12.9-16.9) L 08/25/17 00:20 Hct 20.8 % (37.5-50.1) L 08/25/17 00:20 RDW 15.9 % (11.5-14.5) H 08/24/17 07:55 Plt Count 101 K/mcL (140-400) L 08/24/17 07:55 MPV 12.6 fL (9.4-12.4) H 08/24/17 07:55 Neutrophils # 12.0 K/mcL (1.6-8.9) H 08/24/17 07:55 Nucleated RBCs/100 WBC 0.1 /100 WBC (0) H 08/23/17 04:30 Platelet Estimate Decreased (Normal) L 08/20/17 04:45 Immature Plt Fraction 10.3 % (1.1-6.1) H 08/24/17 07:55 ESR 28 mm/hr (0-10) H 08/23/17 21:20 PT 12.5 Seconds (9.4-12.1) H 08/25/17 04:15 APTT 39.5 Seconds (26.0-36.0) H 08/24/17 08:51 ABG pCO2 61 mmHg (35-45) H 08/23/17 10:51 ABG pO2 152 mmHg (85-104) H 08/23/17 10:51 ABG HCO3 33 mEq/L (21-27) H 08/23/17 10:51 ABG Total CO2 35 mEq/L (20-26) H 08/23/17 10:51 ABG O2 Saturation 99 % (95-98) H 08/23/17 10:51 ABG Base Excess 6 mEq/L (-2 to 3) H 08/23/17 10:51 BUN 81 mg/dL (8-26) H 08/25/17 04:15 Creatinine 2.86 mg/dL (0.72-1.25) H 08/25/17 04:15 Est GFR ( Amer) 26 (> 60) L 08/25/17 04:15 Est GFR (Non-Af Amer) 22 (> 60) L 08/25/17 04:15 BUN/Creatinine Ratio 28 (6-26) H 08/25/17 04:15 Glucose 140 mg/dL (70-99) H 08/25/17 04:15 POC Glucose 151 (58-89) H 08/25/17 07:26 Hemoglobin A1c 7.4 % (-5.6) H 08/15/17 05:02 Calculated Osmolality 319 (280-300) H 08/25/17 04:15 Calcium 7.9 mg/dL (8.6-10.8) L 08/25/17 04:15 Ionized Calcium 1.06 mmol/L (1.15-1.35) L 08/25/17 04:15 Lactate Dehydrogenase 149 Units/L (159-327) L 08/24/17 08:51 Troponin I 1.08 ng/mL (0-0.03) H* 08/15/17 12:00 C-Reactive Protein 86 mg/L (Less than 5) H 08/23/17 13:48 Serum Total Protein 4.7 g/dL (6.0-8.3) L 08/25/17 04:15 Albumin 2.1 g/dL (3.5-5.0) L D 08/25/17 04:15 Albumin/Globulin Ratio 0.8 (1.1-2.2) L 08/25/17 04:15 Urine Clarity Turbid (Clear) A 08/14/17 20:57 Urine Protein >=300 mg/dL (Neg-Trace) H 08/14/17 20:57 Urine Ketones Trace mg/dL (Negative) H 08/14/17 20:57 Urine Blood Large (Negative) H 08/14/17 20:57 Ur Leukocyte Esterase Large (Negative) H 08/14/17 20:57 Urine Microscopic RBC TNTC per hpf (0-3) H 08/14/17 20:57 Urine Microscopic WBC TNTC per hpf (0-3) H 08/14/17 20:57 Urine Yeast Few per hpf (None Seen) H 08/14/17 20:57 Ur Culture Indicated? YES (NO) A 08/14/17 20:57 Stool Occult Blood Positive (Negative) A 08/23/17 22:25 Vancomycin Trough 39.8 mcg/mL (10-20) H* 08/16/17 21:05 - Clinical Findings Intake & Output: Intake & Output 08/24/17 08/24/17 08/25/17 15:59 23:59 07:59 Intake Total 160 / 160 300 / 300 1000 / 1000 Output Total 557 / 557 50 / 50 Balance 160 / 160 -257 / -257 950 / 950 Weight 94.8 kg Consult Discharge Plan - Plan Referrals: Poncho Noriega MD [Primary Care Provider] - <Ronit James - Last Filed: 08/25/17 14:42> Date of Encounter: 08/25/17 Objective PUL Vital signs: Last Vital Signs Temp 97.7 F 08/25/17 11:00 Pulse 82 08/25/17 14:00 Resp 21 08/25/17 14:00 BP 152/71 08/25/17 14:00 Pulse Ox 96 08/25/17 14:00 Ventilator Settings Ventilator Settings: Ventilator Settings, Last 8 Hours Ventilator Mode VC+ Ventilator Mode VC+ Ventilator Mode VC+ Ventilator Mode VC+ Ventilator Mode VC+ Ventilator Mode VC+ Ventilator Mode VC+ Ventilator Mode CPAP Ventilator Mode CPAP Ventilator Mode CPAP Ventilator Mode CPAP Ventilator Tidal Volume 380 Setting Ventilator Tidal Volume 380 Setting Ventilator Tidal Volume 380 Setting Ventilator Tidal Volume 390 Setting Ventilator Tidal Volume 380 Setting Ventilator Tidal Volume 390 Setting Ventilator Tidal Volume 380 Setting Ventilator Respiratory Rate 12 Setting Ventilator Respiratory Rate 12 Setting Ventilator Respiratory Rate 12 Setting Ventilator Respiratory Rate 12 Setting Ventilator Respiratory Rate 12 Setting Ventilator Respiratory Rate 12 Setting Ventilator Respiratory Rate 12 Setting Actual Respiratory Rate 21 Actual Respiratory Rate 23 Actual Respiratory Rate 19 Actual Respiratory Rate 1 Actual Respiratory Rate 20 Actual Respiratory Rate 19 Actual Respiratory Rate 18 Actual Respiratory Rate 23 Actual Respiratory Rate 15 Actual Respiratory Rate 19 Actual Respiratory Rate 12 Positive End Expiratory 5 Pressure Positive End Expiratory 5 Pressure Positive End Expiratory 5 Pressure Positive End Expiratory 5 Pressure Peak Inspiratory Airway 25 Pressure Peak Inspiratory Airway 23 Pressure Peak Inspiratory Airway 26 Pressure Peak Inspiratory Airway 27 Pressure Peak Inspiratory Airway 26 Pressure Peak Inspiratory Airway 26 Pressure Peak Inspiratory Airway 27 Pressure Peak Inspiratory Airway 15 Pressure Peak Inspiratory Airway 14 Pressure Peak Inspiratory Airway 14 Pressure Results - Laboratory Findings CBC and BMP: 08/25/17 08:25 08/25/17 04:15 ABG ABG pH 7.34 pH Units (7.32-7.45) 08/23/17 10:51 ABG pCO2 61 mmHg (35-45) H 08/23/17 10:51 ABG pO2 152 mmHg (85-104) H 08/23/17 10:51 ABG O2 Saturation 99 % (95-98) H 08/23/17 10:51 PT/INR, D-dimer PT 12.5 Seconds (9.4-12.1) H 08/25/17 04:15 Abnormal lab findings: Abnormal lab results WBC 12.8 K/mcL (4.3-11.1) H 08/25/17 08:25 RBC 3.11 M/mcL (4.19-5.50) L 08/25/17 08:25 Hgb 9.1 g/dL (12.9-16.9) L D 08/25/17 08:25 Hct 28.4 % (37.5-50.1) L 08/25/17 08:25 RDW 15.6 % (11.5-14.5) H 08/25/17 08:25 Plt Count 124 K/mcL (140-400) L 08/25/17 08:25 Neutrophils # 11.3 K/mcL (1.6-8.9) H 08/25/17 08:25 Nucleated RBCs/100 WBC 0.1 /100 WBC (0) H 08/23/17 04:30 Platelet Estimate Decreased (Normal) L 08/20/17 04:45 Immature Plt Fraction 10.3 % (1.1-6.1) H 08/24/17 07:55 ESR 28 mm/hr (0-10) H 08/23/17 21:20 PT 12.5 Seconds (9.4-12.1) H 08/25/17 04:15 APTT 39.5 Seconds (26.0-36.0) H 08/24/17 08:51 ABG pCO2 61 mmHg (35-45) H 08/23/17 10:51 ABG pO2 152 mmHg (85-104) H 08/23/17 10:51 ABG HCO3 33 mEq/L (21-27) H 08/23/17 10:51 ABG Total CO2 35 mEq/L (20-26) H 08/23/17 10:51 ABG O2 Saturation 99 % (95-98) H 08/23/17 10:51 ABG Base Excess 6 mEq/L (-2 to 3) H 08/23/17 10:51 BUN 81 mg/dL (8-26) H 08/25/17 04:15 Creatinine 2.86 mg/dL (0.72-1.25) H 08/25/17 04:15 Est GFR ( Amer) 26 (> 60) L 08/25/17 04:15 Est GFR (Non-Af Amer) 22 (> 60) L 08/25/17 04:15 BUN/Creatinine Ratio 28 (6-26) H 08/25/17 04:15 Glucose 140 mg/dL (70-99) H 08/25/17 04:15 POC Glucose 134 (58-89) H 08/25/17 11:03 Hemoglobin A1c 7.4 % (-5.6) H 08/15/17 05:02 Calculated Osmolality 319 (280-300) H 08/25/17 04:15 Calcium 7.9 mg/dL (8.6-10.8) L 08/25/17 04:15 Ionized Calcium 1.11 mmol/L (1.15-1.35) L 08/25/17 13:30 Lactate Dehydrogenase 149 Units/L (159-327) L 08/24/17 08:51 Troponin I 1.08 ng/mL (0-0.03) H* 08/15/17 12:00 C-Reactive Protein 86 mg/L (Less than 5) H 08/23/17 13:48 Serum Total Protein 4.7 g/dL (6.0-8.3) L 08/25/17 04:15 Albumin 2.1 g/dL (3.5-5.0) L D 08/25/17 04:15 Albumin/Globulin Ratio 0.8 (1.1-2.2) L 08/25/17 04:15 Urine Clarity Turbid (Clear) A 08/14/17 20:57 Urine Protein >=300 mg/dL (Neg-Trace) H 08/14/17 20:57 Urine Ketones Trace mg/dL (Negative) H 08/14/17 20:57 Urine Blood Large (Negative) H 08/14/17 20:57 Ur Leukocyte Esterase Large (Negative) H 08/14/17 20:57 Urine Microscopic RBC TNTC per hpf (0-3) H 08/14/17 20:57 Urine Microscopic WBC TNTC per hpf (0-3) H 08/14/17 20:57 Urine Yeast Few per hpf (None Seen) H 08/14/17 20:57 Ur Culture Indicated? YES (NO) A 08/14/17 20:57 Stool Occult Blood Positive (Negative) A 08/23/17 22:25 Vancomycin Trough 39.8 mcg/mL (10-20) H* 08/16/17 21:05 - Clinical Findings Intake & Output: Intake & Output 08/24/17 08/25/17 08/25/17 23:59 07:59 15:59 Intake Total 300 / 300 1000 / 1000 60 / 60 Output Total 557 / 557 50 / 50 270 / 270 Balance -257 / -257 950 / 950 -210 / -210 Weight 94.8 kg - Attending Attestation I saw the patient with the resident agree with History and Physical exam findings. Labs and Radiology were reviewed Ventilator data were reviewed COUNTER ROLLER: Patient is intubated following commands is on intermittent opioids NECK : No JVD appreciated Pulmonary : Patient has hypoxic respiratory failure secondary to fluid overload with bilateral pleural effusion will hold off diuresis because of the ongoing GI bleed will hold off diuresis will flip back him to VC assist Cardiac : Hemodynamicaly stable , NE no invasive intervention for now Nutrition/GI: Patient had GI bleed which ended with acute blood loss anemia consulted surgery did endoscopy which showed bleeding gastric polyp dropped Hb over night incremented appropriately with blood transfusion there is no signs of active bleeding. Renal : Renal labs reviewed , output reviewed , Nephrology is following.Holding of diuresis Heme onc : Patient had GI bleed which lead to acute on chronic blood loss anemia ID : To continue Broad spectrum antibiotics , Vascular consulted for diabetic foot ulcer will need intervention will touch base with when he comes on saturday Musculo skeletal / skin issues : No acute issues Disposition : Critically ill Code status: DNRA Family/POA: Son Spent 33 minutes of Critical care in medical decision making in supporting vital organ function and to prevent further decline.
[2017-08-25] MEDS: Budesonide/Formoterol 160/4.5 MDI IH SCH ×2 (07:53→19:45)
[2017-08-25] MEDS: Chlorhexidine Rinse 15 ML MOUTHWASH MM SCH ×2 (08:28→19:43)
[2017-08-25 08:34] LABS: Basophils % 0.2 %; Eosinophils % 0.3 %; Hematocrit 28.4 % (37.5-50.1); Immature Granulocytes % 0.6 % (0-4); Lymphocytes # 0.6 K/mcL (0.6-4.6); Lymphocytes % 4.9 %; Mean Corpuscular Hemoglobin 29.3 pg (28.0-33.3); Mean Corpuscular Volume 91.3 fL (83.0-100.0); Monocytes # 0.8 K/mcL (0.0-1.3); Neutrophils # 11.3 K/mcL (1.6-8.9); Platelet Count 124 K/mcL (140-400); Red Blood Count 3.11 M/mcL (4.19-5.50); Red Cell Distribution Width 15.6 % (11.5-14.5)
[2017-08-25 08:36] LABS: Hemoglobin 9.1 g/dL (12.9-16.9)
--- NOTE | 2017-08-25 08:49 | Nephrology Progress Note ---
Date of Encounter: 08/25/17 Time of Encounter: 08:35 - Assessment and Plan (1) Acute kidney injury Current Visit: Yes Status: Acute YUMIKO in setting of cardiac arrest, hypovolemia, Vanc toxicity. Will monitor, no immediate need for dialysis. Avoid nephrotoxins. Documented urine output 950cc. Renal fct stable, creat 2.86, K 4.3. Will continue to monitor. Subjective Principal diagnosis: Cardiac Arrest Interval history: Remains Intubated, CPAP in progress. S/P EGD, bleed cauterized. Rec'd PRBC's. Objective - Vital Signs Vital signs: Vital Signs Temp Pulse Pulse Pulse Pulse Pulse Resp 08/25/17 08:06 97.5 F L 08/25/17 07:54 17 08/25/17 07:00 75 12 08/25/17 06:10 97.6 F 78 16 08/25/17 06:00 74 17 08/25/17 05:15 20 08/25/17 05:00 82 19 08/25/17 04:24 97.5 F L 79 17 08/25/17 04:10 97.4 F L 76 15 08/25/17 04:08 97.4 F L 08/25/17 04:00 77 15 08/25/17 03:52 97.4 F L 77 14 08/25/17 03:27 17 08/25/17 03:00 76 14 08/25/17 02:00 77 15 08/25/17 01:38 20 08/25/17 01:37 97.4 F L 76 18 08/25/17 01:30 75 18 08/25/17 01:27 97.4 F L 74 18 08/25/17 00:30 78 18 08/24/17 23:50 21 08/24/17 23:47 97.5 F L 08/24/17 23:00 68 12 08/24/17 22:00 67 13 08/24/17 21:55 13 08/24/17 21:00 65 15 08/24/17 20:02 17 08/24/17 20:00 96.5 F L 63 15 08/24/17 19:00 54 13 08/24/17 18:34 13 08/24/17 17:00 56 13 08/24/17 16:19 13 08/24/17 16:00 98.0 F 59 13 08/24/17 15:07 67 61 60 61 08/24/17 15:00 68 13 08/24/17 14:06 12 08/24/17 14:00 68 13 08/24/17 13:00 73 13 08/24/17 12:00 98.0 F 73 13 08/24/17 11:49 11 08/24/17 11:00 72 13 08/24/17 10:00 66 13 08/24/17 09:10 12 08/24/17 09:00 69 13 Resp Resp Resp BP BP BP BP 08/25/17 08:06 08/25/17 07:54 08/25/17 07:00 159/80 08/25/17 06:10 142/64 08/25/17 06:00 140/64 08/25/17 05:15 156/68 08/25/17 05:00 156/68 08/25/17 04:24 125/57 08/25/17 04:10 131/55 08/25/17 04:08 08/25/17 04:00 136/58 08/25/17 03:52 139/59 08/25/17 03:27 116/50 08/25/17 03:00 116/50 08/25/17 02:00 115/48 08/25/17 01:38 117/44 08/25/17 01:37 117/44 08/25/17 01:30 134/52 08/25/17 01:27 122/45 08/25/17 00:30 153/72 08/24/17 23:50 141/69 08/24/17 23:47 08/24/17 23:00 137/69 08/24/17 22:00 123/85 08/24/17 21:55 147/79 08/24/17 21:00 144/71 08/24/17 20:02 141/63 08/24/17 20:00 141/63 08/24/17 19:00 109/57 08/24/17 18:34 08/24/17 17:00 105/54 08/24/17 16:19 08/24/17 16:00 106/54 08/24/17 15:07 13 12 12 142/66 130/69 122/61 08/24/17 15:00 106/54 08/24/17 14:06 08/24/17 14:00 145/72 08/24/17 13:00 139/105 08/24/17 12:00 135/62 08/24/17 11:49 08/24/17 11:00 124/59 08/24/17 10:00 121/55 08/24/17 09:10 08/24/17 09:00 113/54 BP Pulse Ox 08/25/17 08:06 08/25/17 07:54 99 08/25/17 07:00 94 08/25/17 06:10 08/25/17 06:00 98 08/25/17 05:15 95 08/25/17 05:00 95 08/25/17 04:24 93 08/25/17 04:10 95 08/25/17 04:08 08/25/17 04:00 93 08/25/17 03:52 94 08/25/17 03:27 97 08/25/17 03:00 96 08/25/17 02:00 98 08/25/17 01:38 95 08/25/17 01:37 96 08/25/17 01:30 95 08/25/17 01:27 95 08/25/17 00:30 92 08/24/17 23:50 93 08/24/17 23:47 08/24/17 23:00 100 08/24/17 22:00 100 08/24/17 21:55 100 08/24/17 21:00 100 08/24/17 20:02 100 08/24/17 20:00 100 08/24/17 19:00 100 08/24/17 18:34 100 08/24/17 17:00 100 08/24/17 16:19 100 08/24/17 16:00 100 08/24/17 15:07 120/60 08/24/17 15:00 100 08/24/17 14:06 100 08/24/17 14:00 100 08/24/17 13:00 100 08/24/17 12:00 100 08/24/17 11:49 99 08/24/17 11:00 99 08/24/17 10:00 99 08/24/17 09:10 99 08/24/17 09:00 99 Intake and Output 08/24/17 08/25/1717 23:59 07:59 15:59 Intake Total 300 / 300 1000 / 1000 60 / 60 Output Total 557 / 557 50 / 50 100 / 100 Balance -257 / -257 950 / 950 -40 / -40 Intake: IV Fluids 300 / 300 300 / 300 60 / 60 Protonix 80 MG In 0.9 % Sodium 250 / 250 250 / 250 Chloride 250 ML @ 25 mls/hr IVC .Q10H [facility] Rx#:[id number] Calcium Gluconate 1,000 MG In 0 60 / 60 .9 % Sodium Chloride 50 ML @ 30 mls/hr IVPB Q6HR PRN Rx#: [id number] Zosyn 3.375 GM In Dextrose 5% ( 50 / 50 50 / 50 ADD-Labadie) 50 ML @ 12.5 mls/ hr IVPB Q8HR [facility] Rx#:[id number] Oral 0 / 0 Blood Product 700 / 700 Rbcs Leuko Poor As-1 Unit 350 / 350 [id number] Rbcs Leuko Poor As-1 Unit 350 / 350 [id number] Free Water Intake Amount 0 / 0 Output: Catheter 550 / 550 50 / 50 100 / 100 Gastric Drainage / Other: Stool Size Moderate Small Stool Consistency liquid loose Stool Color Dark Red Blood # Bowel Movements 1 1 Weight 94.8 kg Blood Glucose* 137 151 - General Appearance General appearance: Present: chronically ill, frail Neck: Present: no JVD Respiratory: Present: clear Cardiology: Present: edema, regular rate, regular rhythm Gastrointestinal: Present: normoactive bowel sounds Integumentary: Present: warm and dry - Lab 08/25/17 08:25 08/25/17 04:15 Most recent lab results ABG pH 7.34 pH Units (7.32-7.45) 08/23/17 10:51 ABG pCO2 61 mmHg (35-45) H 08/23/17 10:51 ABG pO2 152 mmHg (85-104) H 08/23/17 10:51 ABG HCO3 33 mEq/L (21-27) H 08/23/17 10:51 ABG O2 Saturation 99 % (95-98) H 08/23/17 10:51 Calcium 7.9 mg/dL (8.6-10.8) L 08/25/17 04:15 Phosphorus 4.7 mg/dL (2.3-4.7) 08/25/17 04:15 Magnesium 2.1 mg/dL (1.6-2.6) 08/25/17 04:15 Consult Discharge Plan - Plan Referrals: Poncho Noriega MD [Primary Care Provider] -
[2017-08-25] MEDS ORDERED: Polyethylene Glycol 3350 255 GM POWDER PO ONE (09:30)
--- NOTE | 2017-08-25 09:34 | General Surgery Progress Note ---
Date of Encounter: 08/25/17 Time of Encounter: 09:31 - Assessment and Plan (1) Melena Current Visit: Yes Status: Acute EGD performed at the bedside yesterday. Noted need for additional 2U transfusion. It is likely that the patient was not fully compensated from the initial transfusion. To ensure no true continued bleeding I will write for a bowel prep via the NGT to "washout" any residual dark or melanotic stool. Once clear then we will be able to assess for any continued bleeding. Subjective Patient reports: other (Patient intubated. Does not follow commands. Noted melantic stool present. Additional 2U PRBC given.) Objective Vital Signs - Last 8 Hours Temp Pulse Resp BP Pulse Ox 08/25/17 09:00 90 22 166/74 95 08/25/17 08:06 97.5 F L 08/25/17 08:00 88 15 173/77 93 08/25/17 07:54 17 99 08/25/17 07:00 75 12 159/80 94 08/25/17 06:10 97.6 F 78 16 142/64 08/25/17 06:00 74 17 140/64 98 08/25/17 05:15 20 156/68 95 08/25/17 05:00 82 19 156/68 95 08/25/17 04:24 97.5 F L 79 17 125/57 93 08/25/17 04:10 97.4 F L 76 15 131/55 95 08/25/17 04:08 97.4 F L 08/25/17 04:00 77 15 136/58 93 08/25/17 03:52 97.4 F L 77 14 139/59 94 08/25/17 03:27 17 116/50 97 08/25/17 03:00 76 14 116/50 96 08/25/17 02:00 77 15 115/48 98 08/25/17 01:38 20 117/44 95 08/25/17 01:37 97.4 F L 76 18 117/44 96 Intake and Output 08/24/17 08/25/17 08/25/17 23:59 07:59 15:59 Intake Total 300 / 300 1000 / 1000 60 / 60 Output Total 557 / 557 50 / 50 100 / 100 Balance -257 / -257 950 / 950 -40 / -40 Intake: IV Fluids 300 / 300 300 / 300 60 / 60 Protonix 80 MG In 0.9 % Sodium 250 / 250 250 / 250 Chloride 250 ML @ 25 mls/hr IVC .Q10H [facility] Rx#:[id number] Calcium Gluconate 1,000 MG In 0 60 / 60 .9 % Sodium Chloride 50 ML @ 30 mls/hr IVPB Q6HR PRN Rx#: [id number] Zosyn 3.375 GM In Dextrose 5% ( 50 / 50 50 / 50 ADD-[place]stone) 50 ML @ 12.5 mls/ hr IVPB Q8HR [facility] Rx#:[id number] Oral 0 / 0 Blood Product 700 / 700 Rbcs Leuko Poor As-1 Unit 350 / 350 [id number] Rbcs Leuko Poor As-1 Unit 350 / 350 [id number] Free Water Intake Amount 0 / 0 Output: Catheter 550 / 550 50 / 50 100 / 100 Gastric Drainage Other: Stool Size Moderate Small Stool Consistency liquid loose Stool Color Dark Red Blood # Bowel Movements 1 1 Weight 94.8 kg Blood Glucose* 137 151 - General physical appearance no distress (Intubated and sedated.) - Abdomen Abdomen: Present: soft, non tender (Unable to assess presence or absence of abdominal pain.) - Labs 08/25/17 08:25 08/25/17 04:15 Diabetes panel 08/25/17 08/25/17 Range/Units 04:15 04:15 Sodium 141 (136-145) mEq/L Potassium 4.3 (3.5-4.5) mEq/L Chloride 106 (98-109) mEq/L Carbon Dioxide 25 (19-29) mEq/L BUN 81 H (8-26) mg/dL Creatinine 2.86 H (0.72-1.25) mg/dL Glucose 140 H (70-99) mg/dL Calcium 7.9 L (8.6-10.8) mg/dL AST 13 (5-34) Units/L ALT 13 (0-55) Units/L Alkaline Phosphatase 69 (38-126) Units/L Albumin 2.1 L D (3.5-5.0) g/dL Calcium panel 08/25/17 08/25/17 Range/Units 04:15 04:15 Calcium 7.9 L (8.6-10.8) mg/dL Phosphorus 4.7 (2.3-4.7) mg/dL Albumin 2.1 L D (3.5-5.0) g/dL Pituitary panel 08/25/17 Range/Units 04:15 Sodium 141 (136-145) mEq/L Potassium 4.3 (3.5-4.5) mEq/L Chloride 106 (98-109) mEq/L Carbon Dioxide 25 (19-29) mEq/L BUN 81 H (8-26) mg/dL Creatinine 2.86 H (0.72-1.25) mg/dL Glucose 140 H (70-99) mg/dL Calcium 7.9 L (8.6-10.8) mg/dL Adrenal panel 08/25/17 08/25/17 Range/Units 04:15 04:15 Sodium 141 (136-145) mEq/L Potassium 4.3 (3.5-4.5) mEq/L Chloride 106 (98-109) mEq/L Carbon Dioxide 25 (19-29) mEq/L BUN 81 H (8-26) mg/dL Creatinine 2.86 H (0.72-1.25) mg/dL Glucose 140 H (70-99) mg/dL Calcium 7.9 L (8.6-10.8) mg/dL Total Bilirubin 0.9 (0.2-1.2) mg/dL AST 13 (5-34) Units/L ALT 13 (0-55) Units/L Alkaline Phosphatase 69 (38-126) Units/L Albumin 2.1 L D (3.5-5.0) g/dL Consult Discharge Plan - Plan Referrals: Poncho Noriega MD [Primary Care Provider] -
--- NOTE | 2017-08-25 09:40 | Palliative Progress Note ---
Date of Encounter: 08/25/17 Time of Encounter: 09:00 - Assessment and plan (1) Goals of care, counseling/discussion Current Visit: Yes Status: Acute Assessment and plan: Patient suffered cardiac arrest and now with multiple rib fractures. Patient removed from CPAP trial and placed on V/C. Plan for extubation tomorrow patient is currently a DNRCC-A and will need to discuss adding DNI to plan after extubation. Will plan to discuss with son in AM. Patient still noted to have bloody stools overnight and is s/p ECG. Patient received 2 units PRBC last night. HGB 9.1 today. Plan to hold extubation for now. Case discussed with Dr. Poon. Patient with diabetic foot ulcers with bilateral foot and lower leg dressings on. (2) Acute respiratory failure Current Visit: Yes Status: Acute Assessment and plan: Patient remains intubated and mechanically ventilated. Extubation on hold d/t new GI bleed and having patient receive Miralax until clear to validate for no further bleeding. Will follow serial H/H. Vitals signs currently stable. Current settings V/C with FiO2 45%. Qualifiers: Respiratory failure complication: hypoxia Qualified Code(s): J96.01 - Acute respiratory failure with hypoxia (3) Nutrition impaired due to imbalance of nutrients Current Visit: Yes Status: Acute Assessment and plan: Patient Albumin and Protein low. Dietary consult obtained. Patient feedings on hold for GI bleed. Will monitor labs. Patient had bloody BMs overnight. Patient with diabetic wound and Wound care following. (4) Diabetic ulcer of both feet Current Visit: Yes Status: Chronic (5) Cardiac arrest Current Visit: Yes Status: Acute - Time Spent With Patient Total time spent is greater than 50% in coordination of care (as documented) at patient's floor/unit and/or counseling patient: 25 - 35 minutes - Subjective Interval history: Patient s/p cardiac arrest that required CPR. Patient with multiple rib fractures and patient is currently intubated and receiving mechanical intubation. S/P EGD yesterday for cauterization of bleeding polyp. Resting comfortable. No family at bedside. - Constitutional Vitals: Abnormal lab results WBC 12.8 K/mcL (4.3-11.1) H 08/25/17 08:25 RBC 3.11 M/mcL (4.19-5.50) L 08/25/17 08:25 Hgb 9.1 g/dL (12.9-16.9) L D 08/25/17 08:25 Hct 28.4 % (37.5-50.1) L 08/25/17 08:25 RDW 15.6 % (11.5-14.5) H 08/25/17 08:25 Plt Count 124 K/mcL (140-400) L 08/25/17 08:25 Neutrophils # 11.3 K/mcL (1.6-8.9) H 08/25/17 08:25 Nucleated RBCs/100 WBC 0.1 /100 WBC (0) H 08/23/17 04:30 Platelet Estimate Decreased (Normal) L 08/20/17 04:45 Immature Plt Fraction 10.3 % (1.1-6.1) H 08/24/17 07:55 ESR 28 mm/hr (0-10) H 08/23/17 21:20 PT 12.5 Seconds (9.4-12.1) H 08/25/17 04:15 APTT 39.5 Seconds (26.0-36.0) H 08/24/17 08:51 ABG pCO2 61 mmHg (35-45) H 08/23/17 10:51 ABG pO2 152 mmHg (85-104) H 08/23/17 10:51 ABG HCO3 33 mEq/L (21-27) H 08/23/17 10:51 ABG Total CO2 35 mEq/L (20-26) H 08/23/17 10:51 ABG O2 Saturation 99 % (95-98) H 08/23/17 10:51 ABG Base Excess 6 mEq/L (-2 to 3) H 08/23/17 10:51 BUN 81 mg/dL (8-26) H 08/25/17 04:15 Creatinine 2.86 mg/dL (0.72-1.25) H 08/25/17 04:15 Est GFR ( Amer) 26 (> 60) L 08/25/17 04:15 Est GFR (Non-Af Amer) 22 (> 60) L 08/25/17 04:15 BUN/Creatinine Ratio 28 (6-26) H 08/25/17 04:15 Glucose 140 mg/dL (70-99) H 08/25/17 04:15 POC Glucose 151 (58-89) H 08/25/17 07:26 Hemoglobin A1c 7.4 % (-5.6) H 08/15/17 05:02 Calculated Osmolality 319 (280-300) H 08/25/17 04:15 Calcium 7.9 mg/dL (8.6-10.8) L 08/25/17 04:15 Ionized Calcium 1.06 mmol/L (1.15-1.35) L 08/25/17 04:15 Lactate Dehydrogenase 149 Units/L (159-327) L 08/24/17 08:51 Troponin I 1.08 ng/mL (0-0.03) H* 08/15/17 12:00 C-Reactive Protein 86 mg/L (Less than 5) H 08/23/17 13:48 Serum Total Protein 4.7 g/dL (6.0-8.3) L 08/25/17 04:15 Albumin 2.1 g/dL (3.5-5.0) L D 08/25/17 04:15 Albumin/Globulin Ratio 0.8 (1.1-2.2) L 08/25/17 04:15 Urine Clarity Turbid (Clear) A 08/14/17 20:57 Urine Protein >=300 mg/dL (Neg-Trace) H 08/14/17 20:57 Urine Ketones Trace mg/dL (Negative) H 08/14/17 20:57 Urine Blood Large (Negative) H 08/14/17 20:57 Ur Leukocyte Esterase Large (Negative) H 08/14/17 20:57 Urine Microscopic RBC TNTC per hpf (0-3) H 08/14/17 20:57 Urine Microscopic WBC TNTC per hpf (0-3) H 08/14/17 20:57 Urine Yeast Few per hpf (None Seen) H 08/14/17 20:57 Ur Culture Indicated? YES (NO) A 08/14/17 20:57 Stool Occult Blood Positive (Negative) A 08/23/17 22:25 Vancomycin Trough 39.8 mcg/mL (10-20) H* 08/16/17 21:05 - Head Head exam: Present: atraumatic - Eye Eye exam: Present: PERRL - ENT ENT exam: Present: mucous membranes moist - Respiratory Respiratory exam: Present: decreased breath sounds - Expanded Respiratory Exam Location: decreased breath sounds: Left, Right, Lower - Cardiovascular Cardiovascular exam: Present: RRR, +S1, +S2 - GI/Abdominal GI/Abdominal exam: Present: hypoactive bowel sounds (still with dark bloody stool), soft - Rectal Rectal exam: Present: bloody stool, heme (-) stool - Neurological Exam Neurological exam: Present: altered - Skin Skin exam: Present: warm (Bilateral lower leg dressings) Palliative Quality Palliative Quality: Screen for Code Status: Yes, Screen for Goals of Care: Yes, Screen for Pain: No, If Pain Regimen Started, Initiate Bowel Regimen: Yes, Screen for Nausea/Vomitting: No Code Status: 08/15/17 00:52 Resuscitation Status: Active [RES] Routine Comment: Resuscitation Status: Full Code 08/18/17 11:42 CODE [Resuscitation Status: Active] [RES] Routine Comment: Resuscitation Status: DNR-Comfort Care-Arrest - Labs CBC & Chem 7: 08/25/17 08:25 08/25/17 04:15 Labs: Laboratory Results - last 24 hr 08/23/17 08/24/17 08/24/17 21:51 10:57 16:20 WBC RBC Hgb Hct MCV MCH MCHC RDW Plt Count MPV Immature Gran % Seg Neutrophils % Lymphocytes % Monocytes % Eosinophils % Basophils % Neutrophils # Lymphocytes # Monocytes # Eosinophils # Basophils # PT INR Sodium Potassium Chloride Carbon Dioxide BUN Creatinine Est GFR ( Amer) Est GFR (Non-Af Amer) BUN/Creatinine Ratio Glucose POC Glucose 142 H 118 H Calculated Osmolality Calcium Ionized Calcium Phosphorus Magnesium Total Bilirubin Direct Bilirubin Indirect Bilirubin AST ALT Alkaline Phosphatase Serum Total Protein Albumin Globulin Albumin/Globulin Ratio Blood Type O POSITIVE Antibody Screen NEGATIVE Crossmatch See Detail 08/24/17 08/24/17 08/25/17 20:24 23:24 00:20 WBC RBC Hgb 6.6 L Hct 20.8 L MCV MCH MCHC RDW Plt Count MPV Immature Gran % Seg Neutrophils % Lymphocytes % Monocytes % Eosinophils % Basophils % Neutrophils # Lymphocytes # Monocytes # Eosinophils # Basophils # PT INR Sodium Potassium Chloride Carbon Dioxide BUN Creatinine Est GFR ( Amer) Est GFR (Non-Af Amer) BUN/Creatinine Ratio Glucose POC Glucose 131 H 137 H Calculated Osmolality Calcium Ionized Calcium Phosphorus Magnesium Total Bilirubin Direct Bilirubin Indirect Bilirubin AST ALT Alkaline Phosphatase Serum Total Protein Albumin Globulin Albumin/Globulin Ratio Blood Type Antibody Screen Crossmatch 08/25/17 08/25/17 08/25/17 04:15 04:15 04:15 WBC RBC Hgb Hct MCV MCH MCHC RDW Plt Count MPV Immature Gran % Seg Neutrophils % Lymphocytes % Monocytes % Eosinophils % Basophils % Neutrophils # Lymphocytes # Monocytes # Eosinophils # Basophils # PT 12.5 H INR 1.2 Sodium 141 Potassium 4.3 Chloride 106 Carbon Dioxide 25 BUN 81 H Creatinine 2.86 H Est GFR ( Amer) 26 L Est GFR (Non-Af Amer) 22 L BUN/Creatinine Ratio 28 H Glucose 140 H POC Glucose Calculated Osmolality 319 H Calcium 7.9 L Ionized Calcium 1.06 L Phosphorus 4.7 Magnesium 2.1 Total Bilirubin 0.9 Direct Bilirubin 0.5 Indirect Bilirubin 0.4 AST 13 ALT 13 Alkaline Phosphatase 69 Serum Total Protein 4.7 L Albumin 2.1 L D Globulin 2.6 Albumin/Globulin Ratio 0.8 L Blood Type Antibody Screen Crossmatch 08/25/17 08/25/17 07:26 08:25 WBC 12.8 H RBC 3.11 L Hgb 9.1 L D Hct 28.4 L MCV 91.3 MCH 29.3 MCHC 32.0 RDW 15.6 H Plt Count 124 L MPV 12.0 Immature Gran % 0.6 Seg Neutrophils % 88.0 Lymphocytes % 4.9 Monocytes % 6.0 Eosinophils % 0.3 Basophils % 0.2 Neutrophils # 11.3 H Lymphocytes # 0.6 Monocytes # 0.8 Eosinophils # 0.0 Basophils # 0.0 PT INR Sodium Potassium Chloride Carbon Dioxide BUN Creatinine Est GFR ( Amer) Est GFR (Non-Af Amer) BUN/Creatinine Ratio Glucose POC Glucose 151 H Calculated Osmolality Calcium Ionized Calcium Phosphorus Magnesium Total Bilirubin Direct Bilirubin Indirect Bilirubin AST ALT Alkaline Phosphatase Serum Total Protein Albumin Globulin Albumin/Globulin Ratio Blood Type Antibody Screen Crossmatch - ABG Interpretation ABG results: ABG ABG pH 7.34 pH Units (7.32-7.45) 08/23/17 10:51 ABG pCO2 61 mmHg (35-45) H 08/23/17 10:51 ABG pO2 152 mmHg (85-104) H 08/23/17 10:51 ABG O2 Saturation 99 % (95-98) H 08/23/17 10:51 PT/INR, D-dimer PT 12.5 Seconds (9.4-12.1) H 08/25/17 04:15 Consult Discharge Plan - Plan Referrals: Poncho Noriega MD [Primary Care Provider] -
--- NOTE | 2017-08-25 11:50 | Pre-Sedation Evaluation ---
Pre-sedation evaluation - Pre-sedation checklist Date of procedure: 08/24/17 Recent Vitals: Last Vital Signs Temp 97.7 F 08/25/17 11:00 Pulse 75 08/25/17 11:00 Resp 19 08/25/17 11:24 BP 154/84 08/25/17 11:00 Pulse Ox 97 08/25/17 11:24 H&P (including ROS) documented in medical record: Yes Dietary Status: NPO after Midnight Airway Assessment: Patient can open mouth completely, TMJ function normal Possible difficult airway: No ASA Classification *see protocol: CLASS IV-Severe systemic disease/constant threat to pt's life Plan of Care: Pt appropriate candidate for procedure/moderate/conscious sedation
[2017-08-26] MEDS: Insulin LISPRO 300 UNITS/3 ML VIAL SQ SCH ×7 (00:05→23:03)
[2017-08-26] MEDS: Lacri-Lube 3.5 GM TUBE BOTH EYES SCH ×7 (00:06→23:02)
[2017-08-26] MEDS: Piperacillin/Tazobactam 3.375 GM in D5% in Water 50 ML IVPB SCH ×4 (00:06→23:02)
[2017-08-26] MEDS: *HR* FentaNYL (PF) 100 MCG/2 ML VIAL IVP PRN ×3 (00:07→08:46)
[2017-08-26] MEDS: Pantoprazole 80 MG in 0.9 % Sodium Chloride 250 ML IVC SCH ×3 (03:33→21:37)
[2017-08-26 03:51] LABS: Basophils % 0.3 %; Eosinophils # 0.1 K/mcL (0.0-0.6); Eosinophils % 0.5 %; Hematocrit 26.5 % (37.5-50.1); Hemoglobin 8.7 g/dL (12.9-16.9); Immature Granulocytes % 0.5 % (0-4); Lymphocytes # 0.8 K/mcL (0.6-4.6); Lymphocytes % 7.4 %; Mean Corpuscular HGB Conc 32.8 g/dL (31.6-35.5); Mean Corpuscular Hemoglobin 29.6 pg (28.0-33.3); Mean Corpuscular Volume 90.1 fL (83.0-100.0); Mean Platelet Volume 11.7 fL (9.4-12.4); Monocytes # 1.1 K/mcL (0.0-1.3); Monocytes % 10.3 %; Neutrophils # 8.5 K/mcL (1.6-8.9); Platelet Count 139 K/mcL (140-400); Red Blood Count 2.94 M/mcL (4.19-5.50); Red Cell Distribution Width 15.7 % (11.5-14.5)
[2017-08-26 03:56] LABS: INR 1.2; Prothrombin Time 12.7 Seconds (9.4-12.1)
[2017-08-26 03:58] LABS: Activated Partial Thrombo Time 36.7 Seconds (26.0-36.0)
[2017-08-26 04:01] LABS: Phosphorous 3.9 mg/dL (2.3-4.7)
[2017-08-26 04:04] LABS: Potassium 3.8 mEq/L (3.5-4.5)
[2017-08-26 04:05] LABS: Albumin 2.1 g/dL (3.5-5.0); Albumin/Globulin Ratio 0.7 (1.1-2.2); Bilirubin,Direct 0.5 mg/dL (0.0-0.5); Bilirubin,Indirect 0.4 mg/dL (0.0-1.2); Bilirubin,Total 0.9 mg/dL (0.2-1.2); Total Protein 5.1 g/dL (6.0-8.3)
[2017-08-26 04:06] LABS: Ionized Calcium 1.07 mmol/L (1.15-1.35)
[2017-08-26 04:34] LABS: ABG Base Excess 3 mEq/L (-2 to 3); ABG HCO3 29 mEq/L (21-27); ABG Oxygen Saturation 98 % (95-98); ABG PCO2 54 mmHg (35-45); ABG PH 7.35 pH Units (7.32-7.45); ABG PO2 119 mmHg (85-104); ABG TCO2 31 mEq/L (20-26); Blood Gas Modality ASSIST CONTROL; Blood Gas PEEP 5 cm H2O; Blood Gas Respiration Rate 12; Blood Gas VT 390 cc
[2017-08-26] MEDS: Aspirin 325 MG TABLET PO SCH (08:12)
[2017-08-26] MEDS: Chlorhexidine Rinse 15 ML MOUTHWASH MM SCH ×2 (08:14→20:39)
--- NOTE | 2017-08-26 08:31 | Nephrology Progress Note ---
Date of Encounter: 08/26/17 Time of Encounter: 08:29 - Assessment and Plan (1) Acute kidney injury Current Visit: Yes Status: Acute The patient has acute kidney injury in the setting of a cardiac arrest that occurred in the extended care facility. The patient's serum creatinine is slightly worse today compared to yesterday possibly because of recent GI bleeding requiring blood transfusion. He does have quite a bit of edema. A given 1 dose of Lasix today to try and increase his urine output. We will continue to monitor his renal function. (2) Diabetic ulcer of both feet Current Visit: Yes Status: Chronic (3) Atherosclerosis of [place] arteries of right leg with ulceration of other part of foot Current Visit: No Status: Chronic (4) Atherosclerosis of [place] arteries of left leg with ulceration of other part of foot Current Visit: No Status: Chronic Subjective Principal diagnosis: Cardiac Arrest Interval history: Patient is currently on BiPAP. Urine output is about 450 mL. Serum creatinine is slightly higher today compared to yesterday. He did recently receive 2 units of pack red blood cells because of some GI bleeding. There is hope that he may be extubated later today. Objective - Vital Signs Vital signs: Vital Signs Temp Pulse Resp BP Pulse Ox 08/26/17 08:00 97.4 F L 68 24 170/84 96 08/26/17 07:22 172/82 98 08/26/17 06:21 14 169/77 99 08/26/17 06:00 69 15 169/77 99 08/26/17 05:00 65 14 176/80 99 08/26/17 04:13 15 168/73 100 08/26/17 04:00 66 15 168/73 100 08/26/17 03:30 97.5 F L 68 16 167/76 100 08/26/17 02:50 24 173/120 98 08/26/17 02:00 67 22 170/76 100 08/26/17 01:00 71 16 162/78 99 08/26/17 00:17 18 165/81 98 08/26/17 00:00 98.1 F 73 23 165/81 97 08/25/17 23:15 70 08/25/17 23:00 69 20 173/74 100 08/25/17 22:06 20 155/75 98 08/25/17 22:00 68 22 155/75 100 08/25/17 21:00 72 21 151/70 98 08/25/17 20:30 100.3 F H 08/25/17 20:00 72 21 125/56 97 08/25/17 19:46 23 139/70 95 08/25/17 19:30 72 24 139/70 96 08/25/17 18:00 71 24 130/65 95 08/25/17 17:48 24 93 08/25/17 17:00 71 25 148/69 94 08/25/17 16:00 91 24 171/79 94 08/25/17 15:22 26 94 08/25/17 15:21 98.9 F 08/25/17 15:00 87 26 161/74 95 08/25/17 14:00 82 21 152/71 96 08/25/17 13:47 26 95 08/25/17 13:00 79 23 151/76 96 08/25/17 12:00 75 19 142/67 97 08/25/17 11:24 19 97 08/25/17 11:00 97.7 F 75 20 154/84 97 08/25/17 10:16 19 166/74 95 08/25/17 10:00 72 18 135/71 96 08/25/17 09:00 92 22 166/74 95 Intake and Output 08/25/17 08/26/17 08/26/17 23:59 07:59 15:59 Intake Total 50 / 50 360 / 360 Output Total 1040 / 1040 920 / 920 200 / 200 Balance -990 / -990 -560 / -560 -200 / -200 Intake: IV Fluids 50 / 50 360 / 360 Protonix 80 MG In 0.9 % Sodium 250 / 250 Chloride 250 ML @ 25 mls/hr IVC .Q10H [facility] Rx#:[id number] Calcium Gluconate 1,000 MG In 0 60 / 60 .9 % Sodium Chloride 50 ML @ 30 mls/hr IVPB Q6HR [facility] Rx#: [id number] Zosyn 3.375 GM In Dextrose 5% ( 50 / 50 50 / 50 ADD-[place]) 50 ML @ 12.5 mls/ hr IVPB Q8HR [facility] Rx#:[id number] Oral 0 / 0 0 / 0 Tube Feeding 0 / 0 Output: Rectal Tube 900 / 900 600 / 600 Catheter 125 / 125 300 / 300 200 / 200 Gastric Drainage 15 / 15 20 / 20 Other: Weight 95.2 kg Blood Glucose* 197 128 128 Patient Weight 08/26/17 23:59 Weight 95.2 kg - General Appearance Exam: Patient is intubated. He is on BiPAP. He is in no acute distress. Lungs coarse breath sounds. Heart regular rate and rhythm. Abdomen is benign. He has 2-3+ lower extremity swelling. - Lab 08/26/17 03:24 08/26/17 03:24 Most recent lab results ABG pH 7.35 pH Units (7.32-7.45) 08/26/17 04:30 ABG pCO2 54 mmHg (35-45) H 08/26/17 04:30 ABG pO2 119 mmHg (85-104) H 08/26/17 04:30 ABG HCO3 29 mEq/L (21-27) H 08/26/17 04:30 ABG O2 Saturation 98 % (95-98) 08/26/17 04:30 Calcium 8.0 mg/dL (8.6-10.8) L 08/26/17 03:24 Phosphorus 3.9 mg/dL (2.3-4.7) 08/26/17 03:24 Magnesium 2.0 mg/dL (1.6-2.6) 08/26/17 03:24 Consult Discharge Plan - Plan Referrals: Poncho Noriega MD [Primary Care Provider] -
[2017-08-26] MEDS ORDERED: Furosemide 40 MG/4 ML VIAL IVP ONE (08:32)
--- NOTE | 2017-08-26 09:22 | Pulmonology Progress Note ---
<Robert Rodriguez W - Last Filed: 08/26/17 10:22> Date of Encounter: 08/26/17 Assessment and Plan (1) Cardiac arrest Current Visit: Yes Status: Acute (2) Diabetic ulcer of both feet Current Visit: Yes Status: Chronic (3) Diabetes Current Visit: Yes Status: Chronic 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 mellitus senior care insulin use: without terminal carman use Qualified Code( s): E11.621 - Type 2 diabetes mellitus with foot ulcer; L97.509 - Non-pressure chronic ulcer of other part of unspecified foot with unspecified severity; L97.509 - Non-pressure chronic ulcer of other part of unspecified foot with unspecified severity; L97.509 - Non-pressure chronic ulcer of other part of unspecified foot with unspecified severity; L97.509 - Non-pressure chronic ulcer of other part of unspecified foot with unspecified severity (4) DVT prophylaxis Current Visit: Yes Status: Acute (5) CAD (coronary artery disease) Current Visit: Yes Status: Chronic Qualifiers: Coronary Disease-Associated Artery/Lesion type: [place] artery [place] vs. transplanted heart: [place] heart Associated angina: without angina Qualified Code(s): I25.10 - Atherosclerotic heart disease of [place] coronary artery without angina pectoris (6) Acute respiratory failure Current Visit: Yes Status: Acute Qualifiers: Respiratory failure complication: hypoxia Qualified Code(s): J96.01 - Acute respiratory failure with hypoxia (7) Septic shock Current Visit: Yes Status: Resolved (8) Goals of care, counseling/discussion Current Visit: Yes Status: Acute (9) Encephalopathy Current Visit: Yes Status: Acute (10) Seizure Current Visit: Yes Status: Acute Objective PUL Vital signs: Last Vital Signs Temp 97.4 F L 08/26/17 08:00 Pulse 80 08/26/17 09:00 Resp 26 08/26/17 09:00 BP 176/97 08/26/17 09:00 Pulse Ox 96 08/26/17 09:00 Ventilator Settings Ventilator Settings: Ventilator Settings, Last 8 Hours Ventilator Mode CPAP Ventilator Mode CPAP Ventilator Mode CPAP Ventilator Mode VC+ Ventilator Mode VC+ Ventilator Mode VC+ Ventilator Mode VC+ Ventilator Mode VC+ Ventilator Mode VC+ Ventilator Mode VC+ Ventilator Mode VC+ Ventilator Mode VC+ Ventilator Tidal Volume 390 Setting Ventilator Tidal Volume 390 Setting Ventilator Tidal Volume 390 Setting Ventilator Tidal Volume 390 Setting Ventilator Tidal Volume 390 Setting Ventilator Tidal Volume 390 Setting Ventilator Tidal Volume 390 Setting Ventilator Tidal Volume 390 Setting Ventilator Tidal Volume 390 Setting Ventilator Respiratory Rate 13 Setting Ventilator Respiratory Rate 13 Setting Ventilator Respiratory Rate 18 Setting Ventilator Respiratory Rate 12 Setting Ventilator Respiratory Rate 12 Setting Ventilator Respiratory Rate 12 Setting Ventilator Respiratory Rate 12 Setting Ventilator Respiratory Rate 12 Setting Ventilator Respiratory Rate 12 Setting Actual Respiratory Rate 17 Actual Respiratory Rate 14 Actual Respiratory Rate 15 Actual Respiratory Rate 15 Actual Respiratory Rate 105 Actual Respiratory Rate 15 Actual Respiratory Rate 16 Actual Respiratory Rate 24 Actual Respiratory Rate 22 Positive End Expiratory 5 Pressure Positive End Expiratory 5 Pressure Positive End Expiratory 5 Pressure Positive End Expiratory 5 Pressure Positive End Expiratory 5 Pressure Positive End Expiratory 5 Pressure Positive End Expiratory 5 Pressure Positive End Expiratory 5 Pressure Positive End Expiratory 5 Pressure Positive End Expiratory 5 Pressure Peak Inspiratory Airway 10 Pressure Peak Inspiratory Airway 16 Pressure Peak Inspiratory Airway 19 Pressure Peak Inspiratory Airway 16 Pressure Peak Inspiratory Airway 16 Pressure Peak Inspiratory Airway 17 Pressure Peak Inspiratory Airway 20 Pressure Peak Inspiratory Airway 26 Pressure Peak Inspiratory Airway 18 Pressure Results - Laboratory Findings CBC and BMP: 08/26/17 03:24 08/26/17 03:24 ABG ABG pH 7.35 pH Units (7.32-7.45) 08/26/17 04:30 ABG pCO2 54 mmHg (35-45) H 08/26/17 04:30 ABG pO2 119 mmHg (85-104) H 08/26/17 04:30 ABG O2 Saturation 98 % (95-98) 08/26/17 04:30 PT/INR, D-dimer PT 12.7 Seconds (9.4-12.1) H 08/26/17 03:24 Abnormal lab findings: Abnormal lab results RBC 2.94 M/mcL (4.19-5.50) L 08/26/17 03:24 Hgb 8.7 g/dL (12.9-16.9) L 08/26/17 03:24 Hct 26.5 % (37.5-50.1) L 08/26/17 03:24 RDW 15.7 % (11.5-14.5) H 08/26/17 03:24 Plt Count 139 K/mcL (140-400) L 08/26/17 03:24 Nucleated RBCs/100 WBC 0.1 /100 WBC (0) H 08/23/17 04:30 Platelet Estimate Decreased (Normal) L 08/20/17 04:45 Immature Plt Fraction 10.3 % (1.1-6.1) H 08/24/17 07:55 ESR 28 mm/hr (0-10) H 08/23/17 21:20 PT 12.7 Seconds (9.4-12.1) H 08/26/17 03:24 APTT 36.7 Seconds (26.0-36.0) H 08/26/17 03:24 ABG pCO2 54 mmHg (35-45) H 08/26/17 04:30 ABG pO2 119 mmHg (85-104) H 08/26/17 04:30 ABG HCO3 29 mEq/L (21-27) H 08/26/17 04:30 ABG Total CO2 31 mEq/L (20-26) H 08/26/17 04:30 BUN 85 mg/dL (8-26) H 08/26/17 03:24 Creatinine 3.04 mg/dL (0.72-1.25) H 08/26/17 03:24 Est GFR ( Amer) 24 (> 60) L 08/26/17 03:24 Est GFR (Non-Af Amer) 20 (> 60) L 08/26/17 03:24 BUN/Creatinine Ratio 28 (6-26) H 08/26/17 03:24 Glucose 113 mg/dL (70-99) H 08/26/17 03:24 POC Glucose 128 (58-89) H 08/26/17 08:03 Hemoglobin A1c 7.4 % (-5.6) H 08/15/17 05:02 Calculated Osmolality 327 (280-300) H 08/26/17 03:24 Calcium 8.0 mg/dL (8.6-10.8) L 08/26/17 03:24 Ionized Calcium 1.07 mmol/L (1.15-1.35) L 08/26/17 03:24 Alkaline Phosphatase 128 Units/L (38-126) H 08/26/17 03:24 Lactate Dehydrogenase 149 Units/L (159-327) L 08/24/17 08:51 Troponin I 1.08 ng/mL (0-0.03) H* 08/15/17 12:00 C-Reactive Protein 86 mg/L (Less than 5) H 08/23/17 13:48 Serum Total Protein 5.1 g/dL (6.0-8.3) L 08/26/17 03:24 Albumin 2.1 g/dL (3.5-5.0) L 08/26/17 03:24 Albumin/Globulin Ratio 0.7 (1.1-2.2) L 08/26/17 03:24 Urine Clarity Turbid (Clear) A 08/14/17 20:57 Urine Protein >=300 mg/dL (Neg-Trace) H 08/14/17 20:57 Urine Ketones Trace mg/dL (Negative) H 08/14/17 20:57 Urine Blood Large (Negative) H 08/14/17 20:57 Ur Leukocyte Esterase Large (Negative) H 08/14/17 20:57 Urine Microscopic RBC TNTC per hpf (0-3) H 08/14/17 20:57 Urine Microscopic WBC TNTC per hpf (0-3) H 08/14/17 20:57 Urine Yeast Few per hpf (None Seen) H 08/14/17 20:57 Ur Culture Indicated? YES (NO) A 08/14/17 20:57 Stool Occult Blood Positive (Negative) A 08/23/17 22:25 Vancomycin Trough 39.8 mcg/mL (10-20) H* 08/16/17 21:05 - Clinical Findings Intake & Output: Intake & Output 08/25/17 08/26/17 08/26/17 23:59 07:59 15:59 Intake Total 50 / 50 360 / 360 Output Total 1040 / 1040 920 / 920 200 / 200 Balance -990 / -990 -560 / -560 -200 / -200 Weight 95.2 kg Consult Discharge Plan - Plan Referrals: Poncho Noriega MD [Primary Care Provider] - - Attending Attestation I examined this patient and my medical decision-making was reviewed with the Resident Physician. I agree with the documented findings, disposition and treatment plan as described except to the extent set forth below. We independently had [id number] contact with the patient Patient seen and examined at bedside Labs, radiology, chart personally reviewed. Management was reviewed during multidisciplinary critical care rounds. [employer]: mroe awake today following commands. Cont Narcotic for pain of Rib Fracture. Pulm: Acute hypoxic Hypercarbic Respiratory failure. Failed SBT today plan to trial again tomorrow. Cards: S/p Cardiiac arrest with underlying CAD/cardiomyopathy. Cont medical mngt.. Remains HTN medications will be titrated. FEN-GI: GI s/p Polyps which have been addressed by Gen Surgery cont to monitor Renal: Yumiko is resolving monitor UOP ID: Cont ABx for Diabetic foot ulcers/osteomyelitis. ID following. Heme/Onc: Possible Acute GI hemorrhage Endo: Glucose Monitored Integ/MSK: Skin Care per routine ICU Nursing Protocol to prevent ulcers. PT/OT Consult. Lines: All lines examined without evidence of infection : Dispo: Reamins in ICU. CODE: DNAR. <Kinsey Mcrae - Last Filed: 08/26/17 12:01> Date of Encounter: 08/26/17 Time of Encounter: 09:22 Assessment and Plan (1) Acute respiratory failure Current Visit: Yes Status: Acute Due to bradycardic episode while on CPAP of pressure support of 0, he was resumed to his previous vent settings. ABG this AM: pH 7.35/pCO2 54, pO2 119/ HCO3 29/98%. Plan to trial again tomorrow. To review plan with Dr. Rodriguez this morning. Qualifiers: Respiratory failure complication: hypoxia Qualified Code(s): J96.01 - Acute respiratory failure with hypoxia (2) Melena Current Visit: Yes Status: Acute s/p 5 U pRBCs. H/H stable overnight. 08/23: Hgb 5.0 08/24: Hgb 7.0 08/25: Hgb 6.6, 9.1 08/26: Hgb 8.7 08/24/2017 EGD: sessile polyps within gastric fundus. Surgery on consult, appreciate recs: Given bowel prep via GT to wash out residual dark or non-optics stools. Following serial H/H Continue PPI, Sucralfate . (3) Acute kidney injury Current Visit: Yes Status: Acute YUMIKO in setting of cardiac arrest and hypovolemia 08/24/17 Cr: 2.67. 08/25/17 Cr: 2.86 08/26/17 Cr 3.04 Monitoring renal function with timed BMP. Nephrology on consult, and appreciate recs: 1 dose of Lasix today to try and increase his urine output. Continue monitoring renal function. Remain on electrolyte protocol orders (4) Cardiac arrest Current Visit: Yes Status: Acute Considering 2/2 to ACS. Remains hemodynamically stable. On statin. Continue to monitor on tele. Will re-start aspirin pt's home dose, continue to monitor with serial CBCs. (5) Diabetic ulcer of both feet Current Visit: Yes Status: Chronic Known bilateral lower extremity foot ulcer s/p intervention for the right lower extremity approximately 1 month ago. Previous Ankle-brachial index was measured at 0.48 on the right and 0.54 on the left, per endovascular note. ID and wound care on consult, appreciate recs (6) Septic shock Current Visit: Yes Status: Resolved Continue management (7) HTN (hypertension) Current Visit: No Status: Chronic Noted episodes of elevated SBP, however SBP below 180 consistently. Advancing pt to amlodipine and in meantime Considering addition of scheduled hydralazine 10 mg PO Q6H To review plan with Dr. Rodriguez. Further recommendations per attending. Qualifiers: Hypertension type: essential hypertension Qualified Code(s): I10 - Essential (primary) hypertension (8) Goals of care, counseling/discussion Current Visit: Yes Status: Acute Palliative on consult, Dr. Hennessy to have discussion with PoA this morning. Appreciate recs Subjective Principal diagnosis: Cardiac Arrest Interval history: Hgb stable overnight. This morning, HR in high 40s and O2 saturation low 80s transiently while on CPAP with pressure support of 0. Occured 1 hr after starting CPAP trial. RT at bedside during bradycardic episode. Patient's vital signs improved immediately with return to previous vent settings. On exam, he was able to follow command Objective PUL Vital signs: Last Vital Signs Temp 97.4 F L 08/26/17 08:00 Pulse 80 08/26/17 09:00 Resp 26 08/26/17 09:00 BP 176/97 08/26/17 09:00 Pulse Ox 96 08/26/17 09:00 General appearance: no acute distress (d), other (sedated) Auscultation: bilateral: clear (on anterior, upper lung berkowitz ), diminished breath sounds (basilar), other Cardiovascular: regular rate and rhythm Gastrointestinal: normoactive bowel sounds, soft, non-tender, non-distended Integumentary: other (bandages on b/l LE extremities, boot on L side. No oozing. ) Extremities: edema unable to assess due to mental status Ventilator Settings Ventilator Settings: Ventilator Settings, Last 8 Hours Ventilator Mode CPAP Ventilator Mode CPAP Ventilator Mode CPAP Ventilator Mode VC+ Ventilator Mode VC+ Ventilator Mode VC+ Ventilator Mode VC+ Ventilator Mode VC+ Ventilator Mode VC+ Ventilator Mode VC+ Ventilator Mode VC+ Ventilator Mode VC+ Ventilator Tidal Volume 390 Setting Ventilator Tidal Volume 390 Setting Ventilator Tidal Volume 390 Setting Ventilator Tidal Volume 390 Setting Ventilator Tidal Volume 390 Setting Ventilator Tidal Volume 390 Setting Ventilator Tidal Volume 390 Setting Ventilator Tidal Volume 390 Setting Ventilator Tidal Volume 390 Setting Ventilator Respiratory Rate 13 Setting Ventilator Respiratory Rate 13 Setting Ventilator Respiratory Rate 18 Setting Ventilator Respiratory Rate 12 Setting Ventilator Respiratory Rate 12 Setting Ventilator Respiratory Rate 12 Setting Ventilator Respiratory Rate 12 Setting Ventilator Respiratory Rate 12 Setting Ventilator Respiratory Rate 12 Setting Actual Respiratory Rate 17 Actual Respiratory Rate 14 Actual Respiratory Rate 15 Actual Respiratory Rate 15 Actual Respiratory Rate 105 Actual Respiratory Rate 15 Actual Respiratory Rate 16 Actual Respiratory Rate 24 Actual Respiratory Rate 22 Positive End Expiratory 5 Pressure Positive End Expiratory 5 Pressure Positive End Expiratory 5 Pressure Positive End Expiratory 5 Pressure Positive End Expiratory 5 Pressure Positive End Expiratory 5 Pressure Positive End Expiratory 5 Pressure Positive End Expiratory 5 Pressure Positive End Expiratory 5 Pressure Positive End Expiratory 5 Pressure Peak Inspiratory Airway 10 Pressure Peak Inspiratory Airway 16 Pressure Peak Inspiratory Airway 19 Pressure Peak Inspiratory Airway 16 Pressure Peak Inspiratory Airway 16 Pressure Peak Inspiratory Airway 17 Pressure Peak Inspiratory Airway 20 Pressure Peak Inspiratory Airway 26 Pressure Peak Inspiratory Airway 18 Pressure Results - Laboratory Findings CBC and BMP: 08/26/17 03:24 08/26/17 03:24 ABG ABG pH 7.35 pH Units (7.32-7.45) 08/26/17 04:30 ABG pCO2 54 mmHg (35-45) H 08/26/17 04:30 ABG pO2 119 mmHg (85-104) H 08/26/17 04:30 ABG O2 Saturation 98 % (95-98) 08/26/17 04:30 PT/INR, D-dimer PT 12.7 Seconds (9.4-12.1) H 08/26/17 03:24 Abnormal lab findings: Abnormal lab results RBC 2.94 M/mcL (4.19-5.50) L 08/26/17 03:24 Hgb 8.7 g/dL (12.9-16.9) L 08/26/17 03:24 Hct 26.5 % (37.5-50.1) L 08/26/17 03:24 RDW 15.7 % (11.5-14.5) H 08/26/17 03:24 Plt Count 139 K/mcL (140-400) L 08/26/17 03:24 Nucleated RBCs/100 WBC 0.1 /100 WBC (0) H 08/23/17 04:30 Platelet Estimate Decreased (Normal) L 08/20/17 04:45 Immature Plt Fraction 10.3 % (1.1-6.1) H 08/24/17 07:55 ESR 28 mm/hr (0-10) H 08/23/17 21:20 PT 12.7 Seconds (9.4-12.1) H 08/26/17 03:24 APTT 36.7 Seconds (26.0-36.0) H 08/26/17 03:24 ABG pCO2 54 mmHg (35-45) H 08/26/17 04:30 ABG pO2 119 mmHg (85-104) H 08/26/17 04:30 ABG HCO3 29 mEq/L (21-27) H 08/26/17 04:30 ABG Total CO2 31 mEq/L (20-26) H 08/26/17 04:30 BUN 85 mg/dL (8-26) H 08/26/17 03:24 Creatinine 3.04 mg/dL (0.72-1.25) H 08/26/17 03:24 Est GFR ( Amer) 24 (> 60) L 08/26/17 03:24 Est GFR (Non-Af Amer) 20 (> 60) L 08/26/17 03:24 BUN/Creatinine Ratio 28 (6-26) H 08/26/17 03:24 Glucose 113 mg/dL (70-99) H 08/26/17 03:24 POC Glucose 128 (58-89) H 08/26/17 08:03 Hemoglobin A1c 7.4 % (-5.6) H 08/15/17 05:02 Calculated Osmolality 327 (280-300) H 08/26/17 03:24 Calcium 8.0 mg/dL (8.6-10.8) L 08/26/17 03:24 Ionized Calcium 1.07 mmol/L (1.15-1.35) L 08/26/17 03:24 Alkaline Phosphatase 128 Units/L (38-126) H 08/26/17 03:24 Lactate Dehydrogenase 149 Units/L (159-327) L 08/24/17 08:51 Troponin I 1.08 ng/mL (0-0.03) H* 08/15/17 12:00 C-Reactive Protein 86 mg/L (Less than 5) H 08/23/17 13:48 Serum Total Protein 5.1 g/dL (6.0-8.3) L 08/26/17 03:24 Albumin 2.1 g/dL (3.5-5.0) L 08/26/17 03:24 Albumin/Globulin Ratio 0.7 (1.1-2.2) L 08/26/17 03:24 Urine Clarity Turbid (Clear) A 08/14/17 20:57 Urine Protein >=300 mg/dL (Neg-Trace) H 08/14/17 20:57 Urine Ketones Trace mg/dL (Negative) H 08/14/17 20:57 Urine Blood Large (Negative) H 08/14/17 20:57 Ur Leukocyte Esterase Large (Negative) H 08/14/17 20:57 Urine Microscopic RBC TNTC per hpf (0-3) H 08/14/17 20:57 Urine Microscopic WBC TNTC per hpf (0-3) H 08/14/17 20:57 Urine Yeast Few per hpf (None Seen) H 08/14/17 20:57 Ur Culture Indicated? YES (NO) A 08/14/17 20:57 Stool Occult Blood Positive (Negative) A 08/23/17 22:25 Vancomycin Trough 39.8 mcg/mL (10-20) H* 08/16/17 21:05 - Clinical Findings Intake & Output: Intake & Output 08/25/17 08/26/17 08/26/17 23:59 07:59 15:59 Intake Total 50 / 50 360 / 360 Output Total 1040 / 1040 920 / 920 200 / 200 Balance -990 / -990 -560 / -560 -200 / -200 Weight 95.2 kg
--- NOTE | 2017-08-26 09:26 | Palliative Progress Note ---
<Santos Bird - Last Filed: 08/26/17 09:24> Date of Encounter: 08/26/17 Time of Encounter: 09:24 - Assessment and plan (1) Goals of care, counseling/discussion Current Visit: Yes Status: Acute Assessment and plan: DNR-CCA successful cpap this morning will be extubated today currently patient would be reintubated if necessary if that is the case will require discussion with family about trach/PEG (2) GI bleed Current Visit: Yes Status: Acute Assessment and plan: Required total 5 units PBRC Bleeding polyp on colonoscopy which was cauterized there was signs of continued bleeding post colonoscopy and pantient underwent bowel prep for washout of residual melanotic stool. 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 (6) Broken ribs Current Visit: Yes Status: Acute Assessment and plan: 2nd to cpr multiple broken ribs fentanyl drip changed to IVP Qualifiers: Encounter type: initial encounter Rib fracture type: multiple ribs Fracture type: closed Laterality: bilateral Qualified Code(s): S22.43XA - Multiple fractures of ribs, bilateral, initial encounter for closed fracture - Time Spent With Patient Total time spent is greater than 50% in coordination of care (as documented) at patient's floor/unit and/or counseling patient: - Subjective Interval history: patient had lower GI bleed over weekend. Required transfusion, EGD showed bleeding polyp which was cautarized. Remains intubated on CPAP this morning with goal of extubation. - Constitutional Vitals: Abnormal lab results RBC 2.94 M/mcL (4.19-5.50) L 08/26/17 03:24 Hgb 8.7 g/dL (12.9-16.9) L 08/26/17 03:24 Hct 26.5 % (37.5-50.1) L 08/26/17 03:24 RDW 15.7 % (11.5-14.5) H 08/26/17 03:24 Plt Count 139 K/mcL (140-400) L 08/26/17 03:24 Nucleated RBCs/100 WBC 0.1 /100 WBC (0) H 08/23/17 04:30 Platelet Estimate Decreased (Normal) L 08/20/17 04:45 Immature Plt Fraction 10.3 % (1.1-6.1) H 08/24/17 07:55 ESR 28 mm/hr (0-10) H 08/23/17 21:20 PT 12.7 Seconds (9.4-12.1) H 08/26/17 03:24 APTT 36.7 Seconds (26.0-36.0) H 08/26/17 03:24 ABG pCO2 54 mmHg (35-45) H 08/26/17 04:30 ABG pO2 119 mmHg (85-104) H 08/26/17 04:30 ABG HCO3 29 mEq/L (21-27) H 08/26/17 04:30 ABG Total CO2 31 mEq/L (20-26) H 08/26/17 04:30 BUN 85 mg/dL (8-26) H 08/26/17 03:24 Creatinine 3.04 mg/dL (0.72-1.25) H 08/26/17 03:24 Est GFR ( Amer) 24 (> 60) L 08/26/17 03:24 Est GFR (Non-Af Amer) 20 (> 60) L 08/26/17 03:24 BUN/Creatinine Ratio 28 (6-26) H 08/26/17 03:24 Glucose 113 mg/dL (70-99) H 08/26/17 03:24 POC Glucose 128 (58-89) H 08/26/17 08:03 Hemoglobin A1c 7.4 % (-5.6) H 08/15/17 05:02 Calculated Osmolality 327 (280-300) H 08/26/17 03:24 Calcium 8.0 mg/dL (8.6-10.8) L 08/26/17 03:24 Ionized Calcium 1.07 mmol/L (1.15-1.35) L 08/26/17 03:24 Alkaline Phosphatase 128 Units/L (38-126) H 08/26/17 03:24 Lactate Dehydrogenase 149 Units/L (159-327) L 08/24/17 08:51 Troponin I 1.08 ng/mL (0-0.03) H* 08/15/17 12:00 C-Reactive Protein 86 mg/L (Less than 5) H 08/23/17 13:48 Serum Total Protein 5.1 g/dL (6.0-8.3) L 08/26/17 03:24 Albumin 2.1 g/dL (3.5-5.0) L 08/26/17 03:24 Albumin/Globulin Ratio 0.7 (1.1-2.2) L 08/26/17 03:24 Urine Clarity Turbid (Clear) A 08/14/17 20:57 Urine Protein >=300 mg/dL (Neg-Trace) H 08/14/17 20:57 Urine Ketones Trace mg/dL (Negative) H 08/14/17 20:57 Urine Blood Large (Negative) H 08/14/17 20:57 Ur Leukocyte Esterase Large (Negative) H 08/14/17 20:57 Urine Microscopic RBC TNTC per hpf (0-3) H 08/14/17 20:57 Urine Microscopic WBC TNTC per hpf (0-3) H 08/14/17 20:57 Urine Yeast Few per hpf (None Seen) H 08/14/17 20:57 Ur Culture Indicated? YES (NO) A 08/14/17 20:57 Stool Occult Blood Positive (Negative) A 08/23/17 22:25 Vancomycin Trough 39.8 mcg/mL (10-20) H* 08/16/17 21:05 - Additional findings Additional findings: General: intubated, uncomfortable on CPAP without pressure support Heart: sinus rhythm Lungs: clear anteriorly, wheezing b/l Abdomen: Soft nontender, nondistended absent bowel sounds Skin: cool, dry Extremities: 2+ pedal edema Neuro: alert Palliative Quality Palliative Quality: Screen for Code Status: Yes, Screen for Goals of Care: Yes, Screen for Pain: No, If Pain Regimen Started, Initiate Bowel Regimen: Yes, Screen for Nausea/Vomitting: No Code Status: 08/15/17 00:52 Resuscitation Status: Active [RES] Routine Comment: Resuscitation Status: Full Code 08/18/17 11:42 CODE [Resuscitation Status: Active] [RES] Routine Comment: Resuscitation Status: DNR-Comfort Care-Arrest - Labs CBC & Chem 7: 08/26/17 03:24 08/26/17 03:24 Labs: Laboratory Results - last 24 hr 08/25/17 08/25/17 08/25/17 11:03 13:30 15:05 WBC RBC Hgb Hct MCV MCH MCHC RDW Plt Count MPV Immature Gran % Seg Neutrophils % Lymphocytes % Monocytes % Eosinophils % Basophils % Neutrophils # Lymphocytes # Monocytes # Eosinophils # Basophils # PT INR APTT Sample Site ABG pH ABG pCO2 ABG pO2 ABG HCO3 ABG Total CO2 ABG O2 Saturation ABG Base Excess Esteban Test Respiration Rate O2 Delivery Device Blood Gas Modality Inspired O2 Tidal Volume PEEP Sodium Potassium Chloride Carbon Dioxide BUN Creatinine Est GFR ( Amer) Est GFR (Non-Af Amer) BUN/Creatinine Ratio Glucose POC Glucose 134 H 255 H Calculated Osmolality Calcium Ionized Calcium 1.11 L Phosphorus Magnesium Total Bilirubin Direct Bilirubin Indirect Bilirubin AST ALT Alkaline Phosphatase Serum Total Protein Albumin Globulin Albumin/Globulin Ratio 08/25/17 08/26/17 08/26/17 19:41 00:00 03:24 WBC RBC Hgb Hct MCV MCH MCHC RDW Plt Count MPV Immature Gran % Seg Neutrophils % Lymphocytes % Monocytes % Eosinophils % Basophils % Neutrophils # Lymphocytes # Monocytes # Eosinophils # Basophils # PT INR APTT Sample Site ABG pH ABG pCO2 ABG pO2 ABG HCO3 ABG Total CO2 ABG O2 Saturation ABG Base Excess Esteban Test Respiration Rate O2 Delivery Device Blood Gas Modality Inspired O2 Tidal Volume PEEP Sodium Potassium Chloride Carbon Dioxide BUN Creatinine Est GFR ( Amer) Est GFR (Non-Af Amer) BUN/Creatinine Ratio Glucose POC Glucose 197 H 128 H Calculated Osmolality Calcium Ionized Calcium Phosphorus Magnesium Total Bilirubin 0.9 Direct Bilirubin 0.5 Indirect Bilirubin 0.4 AST 21 ALT 20 Alkaline Phosphatase 128 H Serum Total Protein 5.1 L Albumin 2.1 L Globulin 3.0 Albumin/Globulin Ratio 0.7 L 08/26/17 08/26/17 08/26/17 03:24 03:24 03:24 WBC 10.5 RBC 2.94 L Hgb 8.7 L Hct 26.5 L MCV 90.1 MCH 29.6 MCHC 32.8 RDW 15.7 H Plt Count 139 L MPV 11.7 Immature Gran % 0.5 Seg Neutrophils % 81.0 Lymphocytes % 7.4 Monocytes % 10.3 Eosinophils % 0.5 Basophils % 0.3 Neutrophils # 8.5 Lymphocytes # 0.8 Monocytes # 1.1 Eosinophils # 0.1 Basophils # 0.0 PT 12.7 H INR 1.2 APTT 36.7 H Sample Site ABG pH ABG pCO2 ABG pO2 ABG HCO3 ABG Total CO2 ABG O2 Saturation ABG Base Excess Esteban Test Respiration Rate O2 Delivery Device Blood Gas Modality Inspired O2 Tidal Volume PEEP Sodium 145 Potassium 3.8 Chloride 107 Carbon Dioxide 27 BUN 85 H Creatinine 3.04 H Est GFR ( Amer) 24 L Est GFR (Non-Af Amer) 20 L BUN/Creatinine Ratio 28 H Glucose 113 H POC Glucose Calculated Osmolality 327 H Calcium 8.0 L Ionized Calcium Phosphorus Magnesium Total Bilirubin Direct Bilirubin Indirect Bilirubin AST ALT Alkaline Phosphatase Serum Total Protein Albumin Globulin Albumin/Globulin Ratio 08/26/17 08/26/17 08/26/17 03:24 04:30 08:03 WBC RBC Hgb Hct MCV MCH MCHC RDW Plt Count MPV Immature Gran % Seg Neutrophils % Lymphocytes % Monocytes % Eosinophils % Basophils % Neutrophils # Lymphocytes # Monocytes # Eosinophils # Basophils # PT INR APTT Sample Site R Radial ABG pH 7.35 ABG pCO2 54 H ABG pO2 119 H ABG HCO3 29 H ABG Total CO2 31 H ABG O2 Saturation 98 ABG Base Excess 3 Esteban Test N/A Respiration Rate 12 O2 Delivery Device Adult Vent Blood Gas Modality ASSIST CONTROL Inspired O2 45.0 Tidal Volume 390 PEEP 5 Sodium Potassium Chloride Carbon Dioxide BUN Creatinine Est GFR ( Amer) Est GFR (Non-Af Amer) BUN/Creatinine Ratio Glucose POC Glucose 128 H Calculated Osmolality Calcium Ionized Calcium 1.07 L Phosphorus 3.9 Magnesium 2.0 Total Bilirubin Direct Bilirubin Indirect Bilirubin AST ALT Alkaline Phosphatase Serum Total Protein Albumin Globulin Albumin/Globulin Ratio - ABG Interpretation ABG results: ABG ABG pH 7.35 pH Units (7.32-7.45) 08/26/17 04:30 ABG pCO2 54 mmHg (35-45) H 08/26/17 04:30 ABG pO2 119 mmHg (85-104) H 08/26/17 04:30 ABG O2 Saturation 98 % (95-98) 08/26/17 04:30 PT/INR, D-dimer PT 12.7 Seconds (9.4-12.1) H 08/26/17 03:24 Consult Discharge Plan - Plan Referrals: Poncho Noriega MD [Primary Care Provider] - <Juwan Hennessy - Last Filed: 08/26/17 09:54> Date of Encounter: 08/26/17 - Time Spent With Patient Total time spent is greater than 50% in coordination of care (as documented) at patient's floor/unit and/or counseling patient: - Constitutional Vitals: Abnormal lab results RBC 2.94 M/mcL (4.19-5.50) L 08/26/17 03:24 Hgb 8.7 g/dL (12.9-16.9) L 08/26/17 03:24 Hct 26.5 % (37.5-50.1) L 08/26/17 03:24 RDW 15.7 % (11.5-14.5) H 08/26/17 03:24 Plt Count 139 K/mcL (140-400) L 08/26/17 03:24 Nucleated RBCs/100 WBC 0.1 /100 WBC (0) H 08/23/17 04:30 Platelet Estimate Decreased (Normal) L 08/20/17 04:45 Immature Plt Fraction 10.3 % (1.1-6.1) H 08/24/17 07:55 ESR 28 mm/hr (0-10) H 08/23/17 21:20 PT 12.7 Seconds (9.4-12.1) H 08/26/17 03:24 APTT 36.7 Seconds (26.0-36.0) H 08/26/17 03:24 ABG pCO2 54 mmHg (35-45) H 08/26/17 04:30 ABG pO2 119 mmHg (85-104) H 08/26/17 04:30 ABG HCO3 29 mEq/L (21-27) H 08/26/17 04:30 ABG Total CO2 31 mEq/L (20-26) H 08/26/17 04:30 BUN 85 mg/dL (8-26) H 08/26/17 03:24 Creatinine 3.04 mg/dL (0.72-1.25) H 08/26/17 03:24 Est GFR ( Amer) 24 (> 60) L 08/26/17 03:24 Est GFR (Non-Af Amer) 20 (> 60) L 08/26/17 03:24 BUN/Creatinine Ratio 28 (6-26) H 08/26/17 03:24 Glucose 113 mg/dL (70-99) H 08/26/17 03:24 POC Glucose 128 (58-89) H 08/26/17 08:03 Hemoglobin A1c 7.4 % (-5.6) H 08/15/17 05:02 Calculated Osmolality 327 (280-300) H 08/26/17 03:24 Calcium 8.0 mg/dL (8.6-10.8) L 08/26/17 03:24 Ionized Calcium 1.07 mmol/L (1.15-1.35) L 08/26/17 03:24 Alkaline Phosphatase 128 Units/L (38-126) H 08/26/17 03:24 Lactate Dehydrogenase 149 Units/L (159-327) L 08/24/17 08:51 Troponin I 1.08 ng/mL (0-0.03) H* 08/15/17 12:00 C-Reactive Protein 86 mg/L (Less than 5) H 08/23/17 13:48 Serum Total Protein 5.1 g/dL (6.0-8.3) L 08/26/17 03:24 Albumin 2.1 g/dL (3.5-5.0) L 08/26/17 03:24 Albumin/Globulin Ratio 0.7 (1.1-2.2) L 08/26/17 03:24 Urine Clarity Turbid (Clear) A 08/14/17 20:57 Urine Protein >=300 mg/dL (Neg-Trace) H 08/14/17 20:57 Urine Ketones Trace mg/dL (Negative) H 08/14/17 20:57 Urine Blood Large (Negative) H 08/14/17 20:57 Ur Leukocyte Esterase Large (Negative) H 08/14/17 20:57 Urine Microscopic RBC TNTC per hpf (0-3) H 08/14/17 20:57 Urine Microscopic WBC TNTC per hpf (0-3) H 08/14/17 20:57 Urine Yeast Few per hpf (None Seen) H 08/14/17 20:57 Ur Culture Indicated? YES (NO) A 08/14/17 20:57 Stool Occult Blood Positive (Negative) A 08/23/17 22:25 Vancomycin Trough 39.8 mcg/mL (10-20) H* 08/16/17 21:05 - Attending Attestation I examined this patient and my medical decision-making was reviewed with the Resident Physician. I agree with the documented findings, disposition and treatment plan as described except to the extent set forth below. Palliative Quality Code Status: 08/15/17 00:52 Resuscitation Status: Active [RES] Routine Comment: Resuscitation Status: Full Code 08/18/17 11:42 CODE [Resuscitation Status: Active] [RES] Routine Comment: Resuscitation Status: DNR-Comfort Care-Arrest - Labs CBC & Chem 7: 08/26/17 03:24 08/26/17 03:24 Labs: Laboratory Results - last 24 hr 08/25/17 08/25/17 08/25/17 11:03 13:30 15:05 WBC RBC Hgb Hct MCV MCH MCHC RDW Plt Count MPV Immature Gran % Seg Neutrophils % Lymphocytes % Monocytes % Eosinophils % Basophils % Neutrophils # Lymphocytes # Monocytes # Eosinophils # Basophils # PT INR APTT Sample Site ABG pH ABG pCO2 ABG pO2 ABG HCO3 ABG Total CO2 ABG O2 Saturation ABG Base Excess Esteban Test Respiration Rate O2 Delivery Device Blood Gas Modality Inspired O2 Tidal Volume PEEP Sodium Potassium Chloride Carbon Dioxide BUN Creatinine Est GFR ( Amer) Est GFR (Non-Af Amer) BUN/Creatinine Ratio Glucose POC Glucose 134 H 255 H Calculated Osmolality Calcium Ionized Calcium 1.11 L Phosphorus Magnesium Total Bilirubin Direct Bilirubin Indirect Bilirubin AST ALT Alkaline Phosphatase Serum Total Protein Albumin Globulin Albumin/Globulin Ratio 08/25/17 08/26/17 08/26/17 19:41 00:00 03:24 WBC RBC Hgb Hct MCV MCH MCHC RDW Plt Count MPV Immature Gran % Seg Neutrophils % Lymphocytes % Monocytes % Eosinophils % Basophils % Neutrophils # Lymphocytes # Monocytes # Eosinophils # Basophils # PT INR APTT Sample Site ABG pH ABG pCO2 ABG pO2 ABG HCO3 ABG Total CO2 ABG O2 Saturation ABG Base Excess Esteban Test Respiration Rate O2 Delivery Device Blood Gas Modality Inspired O2 Tidal Volume PEEP Sodium Potassium Chloride Carbon Dioxide BUN Creatinine Est GFR ( Amer) Est GFR (Non-Af Amer) BUN/Creatinine Ratio Glucose POC Glucose 197 H 128 H Calculated Osmolality Calcium Ionized Calcium Phosphorus Magnesium Total Bilirubin 0.9 Direct Bilirubin 0.5 Indirect Bilirubin 0.4 AST 21 ALT 20 Alkaline Phosphatase 128 H Serum Total Protein 5.1 L Albumin 2.1 L Globulin 3.0 Albumin/Globulin Ratio 0.7 L 08/26/17 08/26/17 08/26/17 03:24 03:24 03:24 WBC 10.5 RBC 2.94 L Hgb 8.7 L Hct 26.5 L MCV 90.1 MCH 29.6 MCHC 32.8 RDW 15.7 H Plt Count 139 L MPV 11.7 Immature Gran % 0.5 Seg Neutrophils % 81.0 Lymphocytes % 7.4 Monocytes % 10.3 Eosinophils % 0.5 Basophils % 0.3 Neutrophils # 8.5 Lymphocytes # 0.8 Monocytes # 1.1 Eosinophils # 0.1 Basophils # 0.0 PT 12.7 H INR 1.2 APTT 36.7 H Sample Site ABG pH ABG pCO2 ABG pO2 ABG HCO3 ABG Total CO2 ABG O2 Saturation ABG Base Excess Esteban Test Respiration Rate O2 Delivery Device Blood Gas Modality Inspired O2 Tidal Volume PEEP Sodium 145 Potassium 3.8 Chloride 107 Carbon Dioxide 27 BUN 85 H Creatinine 3.04 H Est GFR ( Amer) 24 L Est GFR (Non-Af Amer) 20 L BUN/Creatinine Ratio 28 H Glucose 113 H POC Glucose Calculated Osmolality 327 H Calcium 8.0 L Ionized Calcium Phosphorus Magnesium Total Bilirubin Direct Bilirubin Indirect Bilirubin AST ALT Alkaline Phosphatase Serum Total Protein Albumin Globulin Albumin/Globulin Ratio 08/26/17 08/26/17 08/26/17 03:24 04:30 08:03 WBC RBC Hgb Hct MCV MCH MCHC RDW Plt Count MPV Immature Gran % Seg Neutrophils % Lymphocytes % Monocytes % Eosinophils % Basophils % Neutrophils # Lymphocytes # Monocytes # Eosinophils # Basophils # PT INR APTT Sample Site R Radial ABG pH 7.35 ABG pCO2 54 H ABG pO2 119 H ABG HCO3 29 H ABG Total CO2 31 H ABG O2 Saturation 98 ABG Base Excess 3 Esteban Test N/A Respiration Rate 12 O2 Delivery Device Adult Vent Blood Gas Modality ASSIST CONTROL Inspired O2 45.0 Tidal Volume 390 PEEP 5 Sodium Potassium Chloride Carbon Dioxide BUN Creatinine Est GFR ( Amer) Est GFR (Non-Af Amer) BUN/Creatinine Ratio Glucose POC Glucose 128 H Calculated Osmolality Calcium Ionized Calcium 1.07 L Phosphorus 3.9 Magnesium 2.0 Total Bilirubin Direct Bilirubin Indirect Bilirubin AST ALT Alkaline Phosphatase Serum Total Protein Albumin Globulin Albumin/Globulin Ratio - ABG Interpretation ABG results: ABG ABG pH 7.35 pH Units (7.32-7.45) 08/26/17 04:30 ABG pCO2 54 mmHg (35-45) H 08/26/17 04:30 ABG pO2 119 mmHg (85-104) H 08/26/17 04:30 ABG O2 Saturation 98 % (95-98) 08/26/17 04:30 PT/INR, D-dimer PT 12.7 Seconds (9.4-12.1) H 08/26/17 03:24
[2017-08-26] MEDS: Budesonide/Formoterol 160/4.5 MDI IH SCH ×2 (09:45→20:10)
--- NOTE | 2017-08-26 11:07 | Event Note ---
Date of Encounter: 08/26/17 Time of Encounter: 10:30 cancelled document; created in error
--- NOTE | 2017-08-26 11:10 | General Surgery Progress Note ---
<Gissel Garcia - Last Filed: 08/26/17 11:08> Date of Encounter: 08/26/17 Time of Encounter: 10:30 - Assessment and Plan (1) Melena Current Visit: Yes Status: Acute Pt remains intubated and sedated. Noted plans for possible extubation today. Palliative care is following. Hemoglobin is 8.7. Noted 5 units transfused packed red blood cells. Noted bedside EGD on 08/24/2017 with small polyps within the stomach, a clot was present and beneath the clot with a small polyp which was cauterized. No evidence of a ulcer noted. He was recommended to continue PPI's and add Carafate. Patient was given continued bowel prep via the in GT to wash out any residual dark or non-optics stools. Once they were cleared he could be reassessed for further bleeding. Moderate amount of thin, dark green with particulate stool noted in rectal tube. No melanotic stool noted. Will review above with Dr. Norton. Further recommendations pending Subjective Narrative: Unable to obtain subjective information as patient is intubated and sedated. Objective Vital Signs - Last 8 Hours Temp Pulse Resp BP Pulse Ox 08/26/17 10:00 56 16 132/68 98 08/26/17 09:45 17 168/80 98 08/26/17 09:00 80 26 176/97 96 08/26/17 08:29 68 08/26/17 08:00 97.4 F L 68 24 170/84 96 08/26/17 07:22 172/82 98 08/26/17 06:21 14 169/77 99 08/26/17 06:00 69 15 169/77 99 08/26/17 05:00 65 14 176/80 99 08/26/17 04:13 15 168/73 100 08/26/17 04:00 66 15 168/73 100 08/26/17 03:30 97.5 F L 68 16 167/76 100 Intake and Output 08/25/17 08/26/17 08/26/17 23:59 07:59 15:59 Intake Total 50 / 50 360 / 360 Output Total 1040 / 1040 920 / 920 200 / 200 Balance -990 / -990 -560 / -560 -200 / -200 Intake: IV Fluids 50 / 50 360 / 360 Protonix 80 MG In 0.9 % Sodium 250 / 250 Chloride 250 ML @ 25 mls/hr IVC .Q10H [facility] Rx#:[id number] Calcium Gluconate 1,000 MG In 0 60 / 60 .9 % Sodium Chloride 50 ML @ 30 mls/hr IVPB Q6HR PRN Rx#: [id number] Zosyn 3.375 GM In Dextrose 5% ( 50 / 50 50 / 50 ADD-Stilwell) 50 ML @ 12.5 mls/ hr IVPB Q8HR [facility] Rx#:[id number] Oral 0 / 0 0 / 0 Tube Feeding 0 / 0 Output: Rectal Tube 900 / 900 600 / 600 Catheter 125 / 125 300 / 300 200 / 200 Gastric Drainage Other: Weight 95.2 kg Blood Glucose* 197 128 128 Patient Weight 08/26/17 23:59 Weight 95.2 kg - General physical appearance no distress, other (Sedated; anasarca noted) - ENT atraumatic, normocephalic - Neck Neck exam: trachea midline, no venous distension - Respiratory other (Mechanical breath sounds) - Cardiovascular Cardiovascular exam: Present: distant heart sounds - Abdomen Abdomen: Present: bowel sounds present, soft, non tender Additional Comments: Moderate amount of thin, dark green with particulate stool noted in rectal tube. No melanotic stool noted. - Integumentary no growths - Neurologic other (Sedated) - Musculoskeletal other (Restraint) - Psychiatric other (Sedated) - Labs 08/26/17 03:24 08/26/17 03:24 Diabetes panel 08/26/17 08/26/17 Range/Units 03:24 03:24 Sodium 145 (136-145) mEq/L Potassium 3.8 (3.5-4.5) mEq/L Chloride 107 (98-109) mEq/L Carbon Dioxide 27 (19-29) mEq/L BUN 85 H (8-26) mg/dL Creatinine 3.04 H (0.72-1.25) mg/dL Glucose 113 H (70-99) mg/dL Calcium 8.0 L (8.6-10.8) mg/dL AST 21 (5-34) Units/L ALT 20 (0-55) Units/L Alkaline Phosphatase 128 H (38-126) Units/L Albumin 2.1 L (3.5-5.0) g/dL Calcium panel 08/26/17 08/26/17 08/26/17 Range/Units 03:24 03:24 03:24 Calcium 8.0 L (8.6-10.8) mg/dL Phosphorus 3.9 (2.3-4.7) mg/dL Albumin 2.1 L (3.5-5.0) g/dL Pituitary panel 08/26/17 Range/Units 03:24 Sodium 145 (136-145) mEq/L Potassium 3.8 (3.5-4.5) mEq/L Chloride 107 (98-109) mEq/L Carbon Dioxide 27 (19-29) mEq/L BUN 85 H (8-26) mg/dL Creatinine 3.04 H (0.72-1.25) mg/dL Glucose 113 H (70-99) mg/dL Calcium 8.0 L (8.6-10.8) mg/dL Adrenal panel 08/26/17 08/26/17 Range/Units 03:24 03:24 Sodium 145 (136-145) mEq/L Potassium 3.8 (3.5-4.5) mEq/L Chloride 107 (98-109) mEq/L Carbon Dioxide 27 (19-29) mEq/L BUN 85 H (8-26) mg/dL Creatinine 3.04 H (0.72-1.25) mg/dL Glucose 113 H (70-99) mg/dL Calcium 8.0 L (8.6-10.8) mg/dL Total Bilirubin 0.9 (0.2-1.2) mg/dL AST 21 (5-34) Units/L ALT 20 (0-55) Units/L Alkaline Phosphatase 128 H (38-126) Units/L Albumin 2.1 L (3.5-5.0) g/dL Consult Discharge Plan - Plan Referrals: Poncho Noriega MD [Primary Care Provider] - <Edward Norton - Last Filed: 08/26/17 13:38> Date of Encounter: 08/26/17 - Assessment and Plan (1) Melena Current Visit: Yes Status: Acute Objective Vital Signs - Last 8 Hours Temp Pulse Resp BP Pulse Ox 08/26/17 13:15 15 141/68 98 08/26/17 13:00 96.1 F L 59 14 141/68 99 08/26/17 12:00 94.1 F L 55 16 143/68 99 08/26/17 11:19 16 144/70 100 08/26/17 11:00 56 16 144/70 99 08/26/17 10:00 56 16 132/68 98 08/26/17 09:45 17 168/80 98 08/26/17 09:00 80 26 176/97 96 08/26/17 08:29 68 08/26/17 08:00 97.4 F L 68 24 170/84 96 08/26/17 07:22 172/82 98 08/26/17 06:21 14 169/77 99 08/26/17 06:00 69 15 169/77 99 Intake and Output 08/25/17 08/26/17 08/26/17 23:59 07:59 15:59 Intake Total 50 / 50 360 / 360 Output Total 1040 / 1040 920 / 920 535 / 535 Balance -990 / -990 -560 / -560 -535 / -535 Intake: IV Fluids 50 / 50 360 / 360 Protonix 80 MG In 0.9 % Sodium 250 / 250 Chloride 250 ML @ 25 mls/hr IVC .Q10H [facility] Rx#:[id number] Calcium Gluconate 1,000 MG In 0 60 / 60 .9 % Sodium Chloride 50 ML @ 30 mls/hr IVPB Q6HR PRN Rx#: [id number] Zosyn 3.375 GM In Dextrose 5% ( 50 / 50 50 / 50 ADD-Stilwell) 50 ML @ 12.5 mls/ hr IVPB Q8HR [facility] Rx#:[id number] Oral 0 / 0 0 / 0 Tube Feeding 0 / 0 Output: Rectal Tube 900 / 900 600 / 600 100 / 100 Catheter 125 / 125 300 / 300 375 / 375 Gastric Drainage 20 / 20 60 / 60 Other: Weight 95.2 kg Blood Glucose* 197 128 128 Patient Weight 08/26/17 23:59 Weight 95.2 kg - Labs 08/26/17 03:24 08/26/17 03:24 Diabetes panel 08/26/17 08/26/17 Range/Units 03:24 03:24 Sodium 145 (136-145) mEq/L Potassium 3.8 (3.5-4.5) mEq/L Chloride 107 (98-109) mEq/L Carbon Dioxide 27 (19-29) mEq/L BUN 85 H (8-26) mg/dL Creatinine 3.04 H (0.72-1.25) mg/dL Glucose 113 H (70-99) mg/dL Calcium 8.0 L (8.6-10.8) mg/dL AST 21 (5-34) Units/L ALT 20 (0-55) Units/L Alkaline Phosphatase 128 H (38-126) Units/L Albumin 2.1 L (3.5-5.0) g/dL Calcium panel 08/26/17 08/26/17 08/26/17 Range/Units 03:24 03:24 03:24 Calcium 8.0 L (8.6-10.8) mg/dL Phosphorus 3.9 (2.3-4.7) mg/dL Albumin 2.1 L (3.5-5.0) g/dL Pituitary panel 08/26/17 Range/Units 03:24 Sodium 145 (136-145) mEq/L Potassium 3.8 (3.5-4.5) mEq/L Chloride 107 (98-109) mEq/L Carbon Dioxide 27 (19-29) mEq/L BUN 85 H (8-26) mg/dL Creatinine 3.04 H (0.72-1.25) mg/dL Glucose 113 H (70-99) mg/dL Calcium 8.0 L (8.6-10.8) mg/dL Adrenal panel 08/26/17 08/26/17 Range/Units 03:24 03:24 Sodium 145 (136-145) mEq/L Potassium 3.8 (3.5-4.5) mEq/L Chloride 107 (98-109) mEq/L Carbon Dioxide 27 (19-29) mEq/L BUN 85 H (8-26) mg/dL Creatinine 3.04 H (0.72-1.25) mg/dL Glucose 113 H (70-99) mg/dL Calcium 8.0 L (8.6-10.8) mg/dL Total Bilirubin 0.9 (0.2-1.2) mg/dL AST 21 (5-34) Units/L ALT 20 (0-55) Units/L Alkaline Phosphatase 128 H (38-126) Units/L Albumin 2.1 L (3.5-5.0) g/dL - Attending Attestation I have personally performed a face to face evaluation on this patient. I have reviewed and agree with the care plan. History and Exam by me shows: I reviewed the above assessment and evaluation with the nurse practitioner and agree with the above plan. Rectal tube has dark green bilious material with no melanotic stool and no blood. Evidence of active bleeding. Will follow from a distance.
[2017-08-26] MEDS ORDERED: hydrALAZINE 10 MG TABLET PO SCH (12:00)
--- NOTE | 2017-08-26 13:19 | Infectious Disease Progress No ---
Date of Encounter: 08/26/17 Time of Encounter: 10:20 - Assessment and Plan (1) Cardiac arrest Current Visit: Yes Status: Acute Status post witnessed cardiac arrest 08/14/17. Etiology unclear. ROSC after CPR and ACLS protocol initiation. (2) Shock Current Visit: Yes Status: Acute Septic vs. cardiogenic. The patient had cardiac arrest followed by hypotension requiring vasopressors, leukocytosis, and fever. Vasopressors have been weaned off. WBC normalized. One low-grade fever overnight. BP stable. Management per the ICU team. (3) Osteomyelitis Current Visit: No Status: Acute Location: Left heel. Diagnosed on previous hospitalization. Patient discharged on IV antibiotics, but not sure who was following these in the outpatient setting. MRI of the left foot completed 07/22/17 showed findings consistent with early osteomyelitis vs. reactive osteitis. Podiatry was consulted, but no surgical intervention was done as the ulcer looked good and the patient had improved clinically. According to the discharge summary, the patient was discharged on IV Vancomycin and IV Levaquin. Cultures at that time grew out MRSA and [place]. Clinically, the left heel does look a little worse than when I saw it during his previous admission. There is surrounding erythema and the ulcer appears larger. ESR 28 and 86. Podiatry consulted. Appreciate recommendations. Continue Vancomycin IV. Pharmacy to dose. Goal trough approximately 15. Continue Zosyn 3.375 grams IV Q8H. Duration of treatment depends on the clinical picture, but likely a total of 6 weeks of IV antibiotics. Treat through 08/31/17 and if no additional infectious diseases are identified, can discontinue antibiotics. Qualifiers: Osteomyelitis type: other acute Osteomyelitis location: foot Laterality: left Qualified Code(s): M86.172 - Other acute osteomyelitis, left ankle and foot (4) Abnormal CT scan, chest Current Visit: Yes Status: Acute CT scan of the chest showed multiple fractured ribs, small to moderate bilateral pleural effusions, and pulmonary consolidative changed and multifocal infoltrates bilaterally suggestive of PNA. Repeat CXR 08/22/17 shows persistent bilateral pleural effusions and patchy airspace opacities, mildly improved compared to the CT of the chest. Will continue antibiotics as above for now for OM, which will also cover for pneumonia. (5) Acute kidney injury Current Visit: Yes Status: Acute Likely multifactorial: shock + cardiac arrest + hypotension + nephrotoxic medications. Improved. Nephrology consulted and following. Continue to trend. Dose-adjust antibiotics. Avoid nephrotoxins as able. (6) Elevated troponin Current Visit: No Status: Resolved Likely secondary to cardiac arrest. Cardiology consulted and signed off. (7) Acute respiratory failure Current Visit: Yes Status: Acute Secondary to cardiac arrest, persistent due to acute encephalopathy. Remains intubated. Management per the ICU team. Qualifiers: Respiratory failure complication: hypoxia Qualified Code(s): J96.01 - Acute respiratory failure with hypoxia (8) Encephalopathy Current Visit: Yes Status: Acute Appears improved, but patient still difficult to maintain wakefulness. Does follow some commands. CT head negative for acute findings x 2. EEG negative. (9) Pressure ulcer of left heel, unstageable Current Visit: No Status: Acute Previously diagnosed with OM of the left heel. Podiatry consulted. No surgical intervention at this time. Inflammatory markers are improved. Continue wound care and offloading. 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 Markedly improved since I saw the ulcers during his last hospital stay. Continue wound care. (11) Broken ribs Current Visit: Yes Status: Acute Secondary to CPR. Pain management per the primary team. Qualifiers: Encounter type: initial encounter Rib fracture type: multiple ribs Fracture type: closed Laterality: bilateral Qualified Code(s): S22.43XA - Multiple fractures of ribs, bilateral, initial encounter for closed fracture (12) Fluid overload Current Visit: Yes Status: Acute Management per the ICU and nephrology teams. Qualifiers: Hypervolemia type: other Qualified Code(s): E87.79 - Other fluid overload (13) CHF (congestive heart failure) Current Visit: Yes Status: Chronic Qualifiers: Congestive heart failure type: unspecified congestive heart failure type Congestive heart failure chronicity: acute Qualified Code(s): I50.9 - Heart failure, unspecified (14) CAD (coronary artery disease) Current Visit: Yes Status: Chronic Qualifiers: Coronary Disease-Associated Artery/Lesion type: [place] artery [place] vs. transplanted heart: [place] heart Associated angina: without angina Qualified Code(s): I25.10 - Atherosclerotic heart disease of [place] coronary artery without angina pectoris (15) Pleural effusion Current Visit: Yes Status: Acute Location: Bilateral. Likely secondary to fluid volume overload. Management per the pulmonary team. (16) GI bleed Current Visit: Yes Status: Acute UGI bleed over the weekend. Status post EGD by Dr. Norton. No active bleeding noted on exam. Qualifiers: GI bleed type/associated pathology: melena Qualified Code(s): K92.1 - Melena - Subjective Interval history: Patient seen and examined. Weekend notes reviewed and acute events noted. Patient remains intubated and sedated. Appears somewhat less responsive today, but follows some commands. Per nursing, patient became hypoxic and bradycardic earlier this morning. Infect Dis PN-Objective Data - Labs CBC & Chem 7: 08/26/17 03:24 08/26/17 03:24 Labs: Laboratory Results - last 24 hr 08/25/17 08/25/17 08/25/17 13:30 15:05 19:41 WBC RBC Hgb Hct MCV MCH MCHC RDW Plt Count MPV Immature Gran % Seg Neutrophils % Lymphocytes % Monocytes % Eosinophils % Basophils % Neutrophils # Lymphocytes # Monocytes # Eosinophils # Basophils # PT INR APTT Sample Site ABG pH ABG pCO2 ABG pO2 ABG HCO3 ABG Total CO2 ABG O2 Saturation ABG Base Excess [place] Test Respiration Rate O2 Delivery Device Blood Gas Modality Inspired O2 Tidal Volume PEEP Sodium Potassium Chloride Carbon Dioxide BUN Creatinine Est GFR ( Amer) Est GFR (Non-Af Amer) BUN/Creatinine Ratio Glucose POC Glucose 255 H 197 H Calculated Osmolality Calcium Ionized Calcium 1.11 L Phosphorus Magnesium Total Bilirubin Direct Bilirubin Indirect Bilirubin AST ALT Alkaline Phosphatase Serum Total Protein Albumin Globulin Albumin/Globulin Ratio 08/26/17 08/26/17 08/26/17 00:00 03:24 03:24 WBC 10.5 RBC 2.94 L Hgb 8.7 L Hct 26.5 L MCV 90.1 MCH 29.6 MCHC 32.8 RDW 15.7 H Plt Count 139 L MPV 11.7 Immature Gran % 0.5 Seg Neutrophils % 81.0 Lymphocytes % 7.4 Monocytes % 10.3 Eosinophils % 0.5 Basophils % 0.3 Neutrophils # 8.5 Lymphocytes # 0.8 Monocytes # 1.1 Eosinophils # 0.1 Basophils # 0.0 PT INR APTT Sample Site ABG pH ABG pCO2 ABG pO2 ABG HCO3 ABG Total CO2 ABG O2 Saturation ABG Base Excess [place] Test Respiration Rate O2 Delivery Device Blood Gas Modality Inspired O2 Tidal Volume PEEP Sodium Potassium Chloride Carbon Dioxide BUN Creatinine Est GFR ( Amer) Est GFR (Non-Af Amer) BUN/Creatinine Ratio Glucose POC Glucose 128 H Calculated Osmolality Calcium Ionized Calcium Phosphorus Magnesium Total Bilirubin 0.9 Direct Bilirubin 0.5 Indirect Bilirubin 0.4 AST 21 ALT 20 Alkaline Phosphatase 128 H Serum Total Protein 5.1 L Albumin 2.1 L Globulin 3.0 Albumin/Globulin Ratio 0.7 L 08/26/17 08/26/17 08/26/17 03:24 03:24 03:24 WBC RBC Hgb Hct MCV MCH MCHC RDW Plt Count MPV Immature Gran % Seg Neutrophils % Lymphocytes % Monocytes % Eosinophils % Basophils % Neutrophils # Lymphocytes # Monocytes # Eosinophils # Basophils # PT 12.7 H INR 1.2 APTT 36.7 H Sample Site ABG pH ABG pCO2 ABG pO2 ABG HCO3 ABG Total CO2 ABG O2 Saturation ABG Base Excess [place] Test Respiration Rate O2 Delivery Device Blood Gas Modality Inspired O2 Tidal Volume PEEP Sodium 145 Potassium 3.8 Chloride 107 Carbon Dioxide 27 BUN 85 H Creatinine 3.04 H Est GFR ( Amer) 24 L Est GFR (Non-Af Amer) 20 L BUN/Creatinine Ratio 28 H Glucose 113 H POC Glucose Calculated Osmolality 327 H Calcium 8.0 L Ionized Calcium 1.07 L Phosphorus 3.9 Magnesium 2.0 Total Bilirubin Direct Bilirubin Indirect Bilirubin AST ALT Alkaline Phosphatase Serum Total Protein Albumin Globulin Albumin/Globulin Ratio 08/26/17 08/26/17 08/26/17 04:30 08:03 10:40 WBC RBC Hgb Hct MCV MCH MCHC RDW Plt Count MPV Immature Gran % Seg Neutrophils % Lymphocytes % Monocytes % Eosinophils % Basophils % Neutrophils # Lymphocytes # Monocytes # Eosinophils # Basophils # PT INR APTT Sample Site R Radial ABG pH 7.35 ABG pCO2 54 H ABG pO2 119 H ABG HCO3 29 H ABG Total CO2 31 H ABG O2 Saturation 98 ABG Base Excess 3 [place] Test N/A Respiration Rate 12 O2 Delivery Device Adult Vent Blood Gas Modality ASSIST CONTROL Inspired O2 45.0 Tidal Volume 390 PEEP 5 Sodium Potassium Chloride Carbon Dioxide BUN Creatinine Est GFR ( Amer) Est GFR (Non-Af Amer) BUN/Creatinine Ratio Glucose POC Glucose 128 H Calculated Osmolality Calcium Ionized Calcium 1.12 L Phosphorus Magnesium Total Bilirubin Direct Bilirubin Indirect Bilirubin AST ALT Alkaline Phosphatase Serum Total Protein Albumin Globulin Albumin/Globulin Ratio 08/26/17 11:18 WBC RBC Hgb Hct MCV MCH MCHC RDW Plt Count MPV Immature Gran % Seg Neutrophils % Lymphocytes % Monocytes % Eosinophils % Basophils % Neutrophils # Lymphocytes # Monocytes # Eosinophils # Basophils # PT INR APTT Sample Site ABG pH ABG pCO2 ABG pO2 ABG HCO3 ABG Total CO2 ABG O2 Saturation ABG Base Excess [place] Test Respiration Rate O2 Delivery Device Blood Gas Modality Inspired O2 Tidal Volume PEEP Sodium Potassium Chloride Carbon Dioxide BUN Creatinine Est GFR ( Amer) Est GFR (Non-Af Amer) BUN/Creatinine Ratio Glucose POC Glucose 165 H Calculated Osmolality Calcium Ionized Calcium Phosphorus Magnesium Total Bilirubin Direct Bilirubin Indirect Bilirubin AST ALT Alkaline Phosphatase Serum Total Protein Albumin Globulin Albumin/Globulin Ratio Cultures: Cultures 08/15/17 01:15 Blood Culture - Final Peripheral Venipuncture No growth. 08/14/17 22:34 Blood Culture - Final Peripheral Venipuncture No growth. 08/17/17 03:51 Sputum Culture - Final Sputum Serology 08/23/17 Range/Units 22:25 Stool Occult Blood Positive A (Negative) Exam - Constitutional Vitals: Temp Pulse Resp BP Pulse Ox 94.1 F L 55 16 143/68 99 08/26/17 12:00 08/26/17 12:00 08/26/17 12:00 08/26/17 12:00 08/26/17 12:00 General appearance: average body habitus, no acute distress - Head Head exam: Present: atraumatic, normal inspection, normocephalic - Eye Eye exam: Present: normal appearance, PERRL - ENT ENT exam: Present: mucous membranes moist - Neck Neck exam: Present: normal inspection - Respiratory Respiratory exam: Present: decreased breath sounds (right base), CTAB. Absent: rales, respiratory distress, rhonchi, wheezes - Cardiovascular Cardiovascular exam: Present: bradycardia. Absent: irregular rhythm - GI/Abdominal GI/Abdominal exam: Present: normal bowel sounds, soft. Absent: distended, tenderness Additional comments: OG tube clamped. Hernandez draining clear yellow urine. Rectal tube with dark green liquid stool. - Extremities Exam Extremities exam: Present: pedal edema (3+ BLE). Absent: joint swelling, tenderness Additional comments: Bilateral foot dressing C/D/I. - Neurological Exam Neurological exam: Present: altered (Opens eyes to verbal command, follows some commands, but does not answer yes/no questions) - Skin Skin exam: Present: dry, intact, normal color, warm Consult Discharge Plan - Plan Referrals: Poncho Noriega MD [Primary Care Provider] -
[2017-08-26] MEDS: hydrALAZINE 10 MG TABLET PO SCH ×2 (18:10→23:02)
[2017-08-27] MEDS: Pantoprazole 80 MG in 0.9 % Sodium Chloride 250 ML IVC SCH (00:21)
[2017-08-27] MEDS: Lacri-Lube 3.5 GM TUBE BOTH EYES SCH ×6 (03:06→23:21)
[2017-08-27] MEDS: Insulin LISPRO 300 UNITS/3 ML VIAL SQ SCH ×6 (03:07→23:23)
[2017-08-27 03:27] LABS: Basophils % 0.2 %; Eosinophils # 0.1 K/mcL (0.0-0.6); Eosinophils % 0.8 %; Hematocrit 25.5 % (37.5-50.1); Hemoglobin 8.4 g/dL (12.9-16.9); Immature Granulocytes % 0.5 % (0-4); Lymphocytes # 0.7 K/mcL (0.6-4.6); Lymphocytes % 7.6 %; Mean Corpuscular HGB Conc 32.9 g/dL (31.6-35.5); Mean Corpuscular Volume 91.1 fL (83.0-100.0); Mean Platelet Volume 11.3 fL (9.4-12.4); Neutrophils # 7.9 K/mcL (1.6-8.9); Platelet Count 154 K/mcL (140-400); Red Cell Distribution Width 15.7 % (11.5-14.5); Segmented Neutrophils % 80.9 %
[2017-08-27 03:32] LABS: INR 1.3; Prothrombin Time 13.7 Seconds (9.4-12.1)
[2017-08-27 03:35] LABS: Activated Partial Thrombo Time 33.5 Seconds (26.0-36.0)
[2017-08-27 03:42] LABS: Albumin/Globulin Ratio 0.7 (1.1-2.2); Bilirubin,Direct 0.4 mg/dL (0.0-0.5); Bilirubin,Indirect 0.2 mg/dL (0.0-1.2); Bilirubin,Total 0.6 mg/dL (0.2-1.2); Globulin 2.9 g/dL (2.4-3.5); Potassium 3.3 mEq/L (3.5-4.5); Total Protein 4.9 g/dL (6.0-8.3)
[2017-08-27] MEDS: Potassium Chloride 40 MEQ/200 ML BAG IVPB PRN (03:54)
[2017-08-27] MEDS: hydrALAZINE 10 MG TABLET PO SCH ×4 (05:10→23:23)
[2017-08-27 05:27] LABS: ABG Base Excess 5 mEq/L (-2 to 3); ABG HCO3 29 mEq/L (21-27); ABG Oxygen Saturation 97 % (95-98); ABG PCO2 42 mmHg (35-45); ABG PH 7.45 pH Units (7.32-7.45); ABG PO2 90 mmHg (85-104); ABG TCO2 30 mEq/L (20-26); Blood Gas Modality ASSIST CONTROL; Blood Gas PEEP 5 cm H2O; Blood Gas Respiration Rate 12; Blood Gas VT 390 cc
[2017-08-27] MEDS: Budesonide/Formoterol 160/4.5 MDI IH SCH ×2 (07:25→19:53)
[2017-08-27] MEDS: Aspirin 325 MG TABLET PO SCH (07:45)
[2017-08-27] MEDS: Chlorhexidine Rinse 15 ML MOUTHWASH MM SCH ×2 (07:45→20:08)
[2017-08-27] MEDS: amLODIPine 5 MG TABLET PO SCH (07:45)
--- NOTE | 2017-08-27 08:05 | Nephrology Progress Note ---
Date of Encounter: 08/27/17 Time of Encounter: 08:03 - Assessment and Plan (1) Acute kidney injury Current Visit: Yes Status: Acute The patient has acute kidney injury in the setting of a cardiac arrest that occurred in the extended care facility. The patient's serum creatinine has been relatively stable. 2 days ago his creatinine acutely worsened again in the setting of acute blood loss anemia. Today his creatinine is the same as yesterday. He requires no dialytic intervention. He remains critically ill. We will continue to monitor. 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 He still is on the ventilator. Urine output is increased to 1200 mL yesterday. Serum creatinine is the same today as yesterday. Objective - Vital Signs Vital signs: Vital Signs Temp Pulse Resp BP Pulse Ox 08/27/17 07:25 23 190/87 98 08/27/17 07:24 97.4 F L 08/27/17 06:25 22 170/76 98 08/27/17 06:00 69 20 165/84 97 08/27/17 05:00 69 19 168/72 97 08/27/17 04:43 20 169/69 98 08/27/17 04:00 69 21 164/69 99 08/27/17 03:00 97.6 F 71 19 163/77 99 08/27/17 02:07 69 21 167/76 99 08/27/17 02:00 17 98 08/27/17 01:00 72 18 158/84 99 08/27/17 00:12 18 157/74 99 08/27/17 00:11 97.6 F 08/27/17 00:00 70 16 157/74 100 08/26/17 23:01 68 20 169/68 99 08/26/17 22:29 15 143/91 99 08/26/17 22:00 68 14 143/91 99 08/26/17 21:12 68 14 167/76 99 08/26/17 20:57 21 153/78 99 08/26/17 20:11 21 153/78 99 08/26/17 20:00 64 20 153/78 99 08/26/17 19:18 65 08/26/17 19:00 65 08/26/17 18:00 68 20 148/67 99 08/26/17 17:28 14 142/58 99 08/26/17 17:00 70 14 142/58 99 08/26/17 16:00 97.2 F L 66 14 127/64 98 08/26/17 15:28 13 125/61 99 08/26/17 15:00 63 16 125/61 99 08/26/17 14:00 96.7 F L 59 15 132/63 99 08/26/17 13:15 15 141/68 98 08/26/17 13:00 96.1 F L 59 14 141/68 99 08/26/17 12:00 94.1 F L 55 16 143/68 99 08/26/17 11:19 16 144/70 100 08/26/17 11:00 56 16 144/70 99 08/26/17 10:00 56 16 132/68 98 08/26/17 09:45 17 168/80 98 08/26/17 09:00 80 26 176/97 96 08/26/17 08:29 68 Intake and Output 08/26/17 08/27/17 08/27/17 23:59 07:59 15:59 Intake Total 50 / 50 300 / 300 Output Total 200 / 200 1050 / 1050 Balance -150 / -150 -750 / -750 Intake: IV Fluids 50 / 50 300 / 300 Protonix 80 MG In 0.9 % Sodium 250 / 250 Chloride 250 ML @ 25 mls/hr IVC .Q10H [facility] Rx#:[id number] Zosyn 3.375 GM In Dextrose 5% ( 50 / 50 50 / 50 ADD-[place]) 50 ML @ 12.5 mls/ hr IVPB Q8HR [facility] Rx#:[id number] Oral 0 / 0 Output: Rectal Tube 200 / 200 Catheter 200 / 200 850 / 850 Other: Weight 94 kg Blood Glucose* 142 Patient Weight 08/27/17 23:59 Weight 94 kg - General Appearance Exam: Patient is intubated. A warming blanket is in place. He appears to be in no acute distress. Lungs coarse breath sounds. Heart regular rate and rhythm. Abdomen demonstrates some diminished bowel sounds. He continues to exhibit lower extremity edema. Hernandez catheter is in place. - Lab 08/27/17 03:10 08/27/17 03:10 Most recent lab results ABG pH 7.45 pH Units (7.32-7.45) 08/27/17 05:25 ABG pCO2 42 mmHg (35-45) 08/27/17 05:25 ABG pO2 90 mmHg (85-104) 08/27/17 05:25 ABG HCO3 29 mEq/L (21-27) H 08/27/17 05:25 ABG O2 Saturation 97 % (95-98) 08/27/17 05:25 Calcium 8.0 mg/dL (8.6-10.8) L 08/27/17 03:10 Phosphorus 3.9 mg/dL (2.3-4.7) 08/26/17 03:24 Magnesium 2.0 mg/dL (1.6-2.6) 08/26/17 03:24 Consult Discharge Plan - Plan Referrals: Poncho Noriega MD [Primary Care Provider] -
--- NOTE | 2017-08-27 08:37 | Palliative Progress Note ---
<Santos Bird - Last Filed: 08/27/17 08:07> Date of Encounter: 08/27/17 Time of Encounter: 08:07 - Assessment and plan (1) Goals of care, counseling/discussion Current Visit: Yes Status: Acute Assessment and plan: DNR-CCA successful cpap this morning will be extubated today currently patient would be reintubated if necessary if that is the case will require discussion with family about trach/PEG: unable to reach family (2) GI bleed Current Visit: Yes Status: Resolved Assessment and plan: Required total 5 units PBRC Bleeding polyp on EGD which was cauterized there was signs of continued bleeding post colonoscopy and pantient underwent bowel prep for washout of residual melanotic stool. currently there is no signs of melanotic stool. hgb stable. Qualifiers: GI bleed type/associated pathology: melena Qualified Code(s): K92.1 - Melena (3) Cardiac arrest Current Visit: Yes Status: Acute Assessment and plan: Witnessed cardiac arrest patient now intubated not sedated BP stable plan as per primary (4) Acute kidney injury Current Visit: Yes Status: Acute Assessment and plan: 2nd to cardiopulmonary arrest, anemia, vacomycin worsening likely 2nd to GI bleed nephrology consulted (5) Diabetic ulcer of both feet Current Visit: Yes Status: Chronic Assessment and plan: being treated for MRSA, enterococuss, proteus mirabilis, and klebsiella infection on zosyn andd vancomycin wound are on board. (6) Broken ribs Current Visit: Yes Status: Acute Assessment and plan: 2nd to cpr multiple broken ribs fentanyl drip changed to IVP Qualifiers: Encounter type: initial encounter Rib fracture type: multiple ribs Fracture type: closed Laterality: bilateral Qualified Code(s): S22.43XA - Multiple fractures of ribs, bilateral, initial encounter for closed fracture - Time Spent With Patient Total time spent is greater than 50% in coordination of care (as documented) at patient's floor/unit and/or counseling patient: - Subjective Interval history: NO acute overnight events. - Constitutional Vitals: Abnormal lab results RBC 2.80 M/mcL (4.19-5.50) L 08/27/17 03:10 Hgb 8.4 g/dL (12.9-16.9) L 08/27/17 03:10 Hct 25.5 % (37.5-50.1) L 08/27/17 03:10 RDW 15.7 % (11.5-14.5) H 08/27/17 03:10 Nucleated RBCs/100 WBC 0.1 /100 WBC (0) H 08/23/17 04:30 Platelet Estimate Decreased (Normal) L 08/20/17 04:45 Immature Plt Fraction 10.3 % (1.1-6.1) H 08/24/17 07:55 ESR 28 mm/hr (0-10) H 08/23/17 21:20 PT 13.7 Seconds (9.4-12.1) H 08/27/17 03:10 ABG HCO3 29 mEq/L (21-27) H 08/27/17 05:25 ABG Total CO2 30 mEq/L (20-26) H 08/27/17 05:25 ABG Base Excess 5 mEq/L (-2 to 3) H 08/27/17 05:25 Potassium 3.3 mEq/L (3.5-4.5) L 08/27/17 03:10 BUN 82 mg/dL (8-26) H 08/27/17 03:10 Creatinine 3.06 mg/dL (0.72-1.25) H 08/27/17 03:10 Est GFR ( Amer) 24 (> 60) L 08/27/17 03:10 Est GFR (Non-Af Amer) 20 (> 60) L 08/27/17 03:10 BUN/Creatinine Ratio 27 (6-26) H 08/27/17 03:10 Glucose 133 mg/dL (70-99) H 08/27/17 03:10 POC Glucose 142 (58-89) H 08/27/17 07:10 Hemoglobin A1c 7.4 % (-5.6) H 08/15/17 05:02 Calculated Osmolality 319 (280-300) H 08/27/17 03:10 Calcium 8.0 mg/dL (8.6-10.8) L 08/27/17 03:10 Ionized Calcium 1.12 mmol/L (1.15-1.35) L 08/26/17 10:40 Lactate Dehydrogenase 149 Units/L (159-327) L 08/24/17 08:51 Troponin I 1.08 ng/mL (0-0.03) H* 08/15/17 12:00 C-Reactive Protein 86 mg/L (Less than 5) H 08/23/17 13:48 Serum Total Protein 4.9 g/dL (6.0-8.3) L 08/27/17 03:10 Albumin 2.0 g/dL (3.5-5.0) L 08/27/17 03:10 Albumin/Globulin Ratio 0.7 (1.1-2.2) L 08/27/17 03:10 Urine Clarity Turbid (Clear) A 08/14/17 20:57 Urine Protein >=300 mg/dL (Neg-Trace) H 08/14/17 20:57 Urine Ketones Trace mg/dL (Negative) H 08/14/17 20:57 Urine Blood Large (Negative) H 08/14/17 20:57 Ur Leukocyte Esterase Large (Negative) H 08/14/17 20:57 Urine Microscopic RBC TNTC per hpf (0-3) H 08/14/17 20:57 Urine Microscopic WBC TNTC per hpf (0-3) H 08/14/17 20:57 Urine Yeast Few per hpf (None Seen) H 08/14/17 20:57 Ur Culture Indicated? YES (NO) A 08/14/17 20:57 Stool Occult Blood Positive (Negative) A 08/23/17 22:25 Vancomycin Trough 39.8 mcg/mL (10-20) H* 08/16/17 21:05 - Additional findings Additional findings: General: intubated, cpap, comfortable awake following commands Heart: sinus rhythm Lungs: clear anteriorly, wheezing b/l Abdomen: Soft nontender, nondistended absent bowel sounds Skin: cool, dry Extremities: 2+ pedal edema Neuro: alert, following commands, eyes open Palliative Quality Palliative Quality: Screen for Code Status: Yes, Screen for Goals of Care: Yes, Screen for Pain: Yes, If Pain Regimen Started, Initiate Bowel Regimen: Yes, Screen for Nausea/Vomitting: No Code Status: 08/15/17 00:52 Resuscitation Status: Active [RES] Routine Comment: Resuscitation Status: Full Code 08/18/17 11:42 CODE [Resuscitation Status: Active] [RES] Routine Comment: Resuscitation Status: DNR-Comfort Care-Arrest - Labs CBC & Chem 7: 08/27/17 03:10 08/27/17 03:10 Labs: Laboratory Results - last 24 hr 08/26/17 08/26/17 08/26/17 10:40 11:18 15:46 WBC RBC Hgb Hct MCV MCH MCHC RDW Plt Count MPV Immature Gran % Seg Neutrophils % Lymphocytes % Monocytes % Eosinophils % Basophils % Neutrophils # Lymphocytes # Monocytes # Eosinophils # Basophils # PT INR APTT Sample Site ABG pH ABG pCO2 ABG pO2 ABG HCO3 ABG Total CO2 ABG O2 Saturation ABG Base Excess Esteban Test Respiration Rate O2 Delivery Device Blood Gas Modality Inspired O2 Tidal Volume PEEP Sodium Potassium Chloride Carbon Dioxide BUN Creatinine Est GFR ( Amer) Est GFR (Non-Af Amer) BUN/Creatinine Ratio Glucose POC Glucose 165 H 133 H Calculated Osmolality Calcium Ionized Calcium 1.12 L Total Bilirubin Direct Bilirubin Indirect Bilirubin AST ALT Alkaline Phosphatase Serum Total Protein Albumin Globulin Albumin/Globulin Ratio Random Vancomycin 08/26/17 08/26/17 08/27/17 20:19 23:47 02:56 WBC RBC Hgb Hct MCV MCH MCHC RDW Plt Count MPV Immature Gran % Seg Neutrophils % Lymphocytes % Monocytes % Eosinophils % Basophils % Neutrophils # Lymphocytes # Monocytes # Eosinophils # Basophils # PT INR APTT Sample Site ABG pH ABG pCO2 ABG pO2 ABG HCO3 ABG Total CO2 ABG O2 Saturation ABG Base Excess Esteban Test Respiration Rate O2 Delivery Device Blood Gas Modality Inspired O2 Tidal Volume PEEP Sodium Potassium Chloride Carbon Dioxide BUN Creatinine Est GFR ( Amer) Est GFR (Non-Af Amer) BUN/Creatinine Ratio Glucose POC Glucose 126 H 139 H 144 H Calculated Osmolality Calcium Ionized Calcium Total Bilirubin Direct Bilirubin Indirect Bilirubin AST ALT Alkaline Phosphatase Serum Total Protein Albumin Globulin Albumin/Globulin Ratio Random Vancomycin 08/27/17 08/27/17 08/27/17 03:10 03:10 03:10 WBC 9.8 RBC 2.80 L Hgb 8.4 L Hct 25.5 L MCV 91.1 MCH 30.0 MCHC 32.9 RDW 15.7 H Plt Count 154 MPV 11.3 Immature Gran % 0.5 Seg Neutrophils % 80.9 Lymphocytes % 7.6 Monocytes % 10.0 Eosinophils % 0.8 Basophils % 0.2 Neutrophils # 7.9 Lymphocytes # 0.7 Monocytes # 1.0 Eosinophils # 0.1 Basophils # 0.0 PT 13.7 H INR 1.3 APTT 33.5 Sample Site ABG pH ABG pCO2 ABG pO2 ABG HCO3 ABG Total CO2 ABG O2 Saturation ABG Base Excess Esteban Test Respiration Rate O2 Delivery Device Blood Gas Modality Inspired O2 Tidal Volume PEEP Sodium 141 Potassium 3.3 L Chloride 106 Carbon Dioxide 27 BUN 82 H Creatinine 3.06 H Est GFR ( Amer) 24 L Est GFR (Non-Af Amer) 20 L BUN/Creatinine Ratio 27 H Glucose 133 H POC Glucose Calculated Osmolality 319 H Calcium 8.0 L Ionized Calcium Total Bilirubin 0.6 Direct Bilirubin 0.4 Indirect Bilirubin 0.2 AST 13 ALT 15 Alkaline Phosphatase 106 Serum Total Protein 4.9 L Albumin 2.0 L Globulin 2.9 Albumin/Globulin Ratio 0.7 L Random Vancomycin 08/27/17 08/27/17 08/27/17 03:10 05:25 07:10 WBC RBC Hgb Hct MCV MCH MCHC RDW Plt Count MPV Immature Gran % Seg Neutrophils % Lymphocytes % Monocytes % Eosinophils % Basophils % Neutrophils # Lymphocytes # Monocytes # Eosinophils # Basophils # PT INR APTT Sample Site R Radial ABG pH 7.45 ABG pCO2 42 ABG pO2 90 ABG HCO3 29 H ABG Total CO2 30 H ABG O2 Saturation 97 ABG Base Excess 5 H Esteban Test Positive Respiration Rate 12 O2 Delivery Device Adult Vent Blood Gas Modality ASSIST CONTROL Inspired O2 35.0 Tidal Volume 390 PEEP 5 Sodium Potassium Chloride Carbon Dioxide BUN Creatinine Est GFR ( Amer) Est GFR (Non-Af Amer) BUN/Creatinine Ratio Glucose POC Glucose 142 H Calculated Osmolality Calcium Ionized Calcium Total Bilirubin Direct Bilirubin Indirect Bilirubin AST ALT Alkaline Phosphatase Serum Total Protein Albumin Globulin Albumin/Globulin Ratio Random Vancomycin 20.4 - ABG Interpretation ABG results: ABG ABG pH 7.45 pH Units (7.32-7.45) 08/27/17 05:25 ABG pCO2 42 mmHg (35-45) 08/27/17 05:25 ABG pO2 90 mmHg (85-104) 08/27/17 05:25 ABG O2 Saturation 97 % (95-98) 08/27/17 05:25 PT/INR, D-dimer PT 13.7 Seconds (9.4-12.1) H 08/27/17 03:10 Consult Discharge Plan - Plan Referrals: Poncho Noriega MD [Primary Care Provider] - <Juwan Hennessy - Last Filed: 08/27/17 11:37> Date of Encounter: 08/27/17 - Time Spent With Patient Total time spent is greater than 50% in coordination of care (as documented) at patient's floor/unit and/or counseling patient: - Constitutional Vitals: Abnormal lab results RBC 2.80 M/mcL (4.19-5.50) L 08/27/17 03:10 Hgb 8.4 g/dL (12.9-16.9) L 08/27/17 03:10 Hct 25.5 % (37.5-50.1) L 08/27/17 03:10 RDW 15.7 % (11.5-14.5) H 08/27/17 03:10 Nucleated RBCs/100 WBC 0.1 /100 WBC (0) H 08/23/17 04:30 Platelet Estimate Decreased (Normal) L 08/20/17 04:45 Immature Plt Fraction 10.3 % (1.1-6.1) H 08/24/17 07:55 ESR 28 mm/hr (0-10) H 08/23/17 21:20 PT 13.7 Seconds (9.4-12.1) H 08/27/17 03:10 ABG HCO3 29 mEq/L (21-27) H 08/27/17 05:25 ABG Total CO2 30 mEq/L (20-26) H 08/27/17 05:25 ABG Base Excess 5 mEq/L (-2 to 3) H 08/27/17 05:25 Potassium 3.3 mEq/L (3.5-4.5) L 08/27/17 03:10 BUN 82 mg/dL (8-26) H 08/27/17 03:10 Creatinine 3.06 mg/dL (0.72-1.25) H 08/27/17 03:10 Est GFR ( Amer) 24 (> 60) L 08/27/17 03:10 Est GFR (Non-Af Amer) 20 (> 60) L 08/27/17 03:10 BUN/Creatinine Ratio 27 (6-26) H 08/27/17 03:10 Glucose 133 mg/dL (70-99) H 08/27/17 03:10 POC Glucose 163 (58-89) H 08/27/17 11:19 Hemoglobin A1c 7.4 % (-5.6) H 08/15/17 05:02 Calculated Osmolality 319 (280-300) H 08/27/17 03:10 Calcium 8.0 mg/dL (8.6-10.8) L 08/27/17 03:10 Ionized Calcium 1.12 mmol/L (1.15-1.35) L 08/26/17 10:40 Lactate Dehydrogenase 149 Units/L (159-327) L 08/24/17 08:51 Troponin I 1.08 ng/mL (0-0.03) H* 08/15/17 12:00 C-Reactive Protein 86 mg/L (Less than 5) H 08/23/17 13:48 Serum Total Protein 4.9 g/dL (6.0-8.3) L 08/27/17 03:10 Albumin 2.0 g/dL (3.5-5.0) L 08/27/17 03:10 Albumin/Globulin Ratio 0.7 (1.1-2.2) L 08/27/17 03:10 Urine Clarity Turbid (Clear) A 08/14/17 20:57 Urine Protein >=300 mg/dL (Neg-Trace) H 08/14/17 20:57 Urine Ketones Trace mg/dL (Negative) H 08/14/17 20:57 Urine Blood Large (Negative) H 08/14/17 20:57 Ur Leukocyte Esterase Large (Negative) H 08/14/17 20:57 Urine Microscopic RBC TNTC per hpf (0-3) H 08/14/17 20:57 Urine Microscopic WBC TNTC per hpf (0-3) H 08/14/17 20:57 Urine Yeast Few per hpf (None Seen) H 08/14/17 20:57 Ur Culture Indicated? YES (NO) A 08/14/17 20:57 Stool Occult Blood Positive (Negative) A 08/23/17 22:25 Vancomycin Trough 39.8 mcg/mL (10-20) H* 08/16/17 21:05 - Attending Attestation I examined this patient and my medical decision-making was reviewed with the Resident Physician. I agree with the documented findings, disposition and treatment plan as described except to the extent set forth below. In the presence of the ICU integrated marketing intern, the patient was asked if he wanted reintubation if he fails extubation. The patient nodded his head yes that he would want to be reintubated. I was then told by the ICU integrated marketing intern that he had already answered the exact same question earlier for the ICU attending. I therefore believe that the patient is consistent in his answers. And that we Should proceed on that basis. Palliative Quality Code Status: 08/15/17 00:52 Resuscitation Status: Active [RES] Routine Comment: Resuscitation Status: Full Code 08/18/17 11:42 CODE [Resuscitation Status: Active] [RES] Routine Comment: Resuscitation Status: DNR-Comfort Care-Arrest - Labs CBC & Chem 7: 08/27/17 03:10 08/27/17 03:10 Labs: Laboratory Results - last 24 hr 08/26/17 08/26/17 08/26/17 15:46 20:19 23:47 WBC RBC Hgb Hct MCV MCH MCHC RDW Plt Count MPV Immature Gran % Seg Neutrophils % Lymphocytes % Monocytes % Eosinophils % Basophils % Neutrophils # Lymphocytes # Monocytes # Eosinophils # Basophils # PT INR APTT Sample Site ABG pH ABG pCO2 ABG pO2 ABG HCO3 ABG Total CO2 ABG O2 Saturation ABG Base Excess Esteban Test Respiration Rate O2 Delivery Device Blood Gas Modality Inspired O2 Tidal Volume PEEP Sodium Potassium Chloride Carbon Dioxide BUN Creatinine Est GFR ( Amer) Est GFR (Non-Af Amer) BUN/Creatinine Ratio Glucose POC Glucose 133 H 126 H 139 H Calculated Osmolality Calcium Total Bilirubin Direct Bilirubin Indirect Bilirubin AST ALT Alkaline Phosphatase Serum Total Protein Albumin Globulin Albumin/Globulin Ratio Random Vancomycin 08/27/17 08/27/17 08/27/17 02:56 03:10 03:10 WBC 9.8 RBC 2.80 L Hgb 8.4 L Hct 25.5 L MCV 91.1 MCH 30.0 MCHC 32.9 RDW 15.7 H Plt Count 154 MPV 11.3 Immature Gran % 0.5 Seg Neutrophils % 80.9 Lymphocytes % 7.6 Monocytes % 10.0 Eosinophils % 0.8 Basophils % 0.2 Neutrophils # 7.9 Lymphocytes # 0.7 Monocytes # 1.0 Eosinophils # 0.1 Basophils # 0.0 PT 13.7 H INR 1.3 APTT 33.5 Sample Site ABG pH ABG pCO2 ABG pO2 ABG HCO3 ABG Total CO2 ABG O2 Saturation ABG Base Excess Esteban Test Respiration Rate O2 Delivery Device Blood Gas Modality Inspired O2 Tidal Volume PEEP Sodium Potassium Chloride Carbon Dioxide BUN Creatinine Est GFR ( Amer) Est GFR (Non-Af Amer) BUN/Creatinine Ratio Glucose POC Glucose 144 H Calculated Osmolality Calcium Total Bilirubin Direct Bilirubin Indirect Bilirubin AST ALT Alkaline Phosphatase Serum Total Protein Albumin Globulin Albumin/Globulin Ratio Random Vancomycin 08/27/17 08/27/17 08/27/17 03:10 03:10 05:25 WBC RBC Hgb Hct MCV MCH MCHC RDW Plt Count MPV Immature Gran % Seg Neutrophils % Lymphocytes % Monocytes % Eosinophils % Basophils % Neutrophils # Lymphocytes # Monocytes # Eosinophils # Basophils # PT INR APTT Sample Site R Radial ABG pH 7.45 ABG pCO2 42 ABG pO2 90 ABG HCO3 29 H ABG Total CO2 30 H ABG O2 Saturation 97 ABG Base Excess 5 H Esteban Test Positive Respiration Rate 12 O2 Delivery Device Adult Vent Blood Gas Modality ASSIST CONTROL Inspired O2 35.0 Tidal Volume 390 PEEP 5 Sodium 141 Potassium 3.3 L Chloride 106 Carbon Dioxide 27 BUN 82 H Creatinine 3.06 H Est GFR ( Amer) 24 L Est GFR (Non-Af Amer) 20 L BUN/Creatinine Ratio 27 H Glucose 133 H POC Glucose Calculated Osmolality 319 H Calcium 8.0 L Total Bilirubin 0.6 Direct Bilirubin 0.4 Indirect Bilirubin 0.2 AST 13 ALT 15 Alkaline Phosphatase 106 Serum Total Protein 4.9 L Albumin 2.0 L Globulin 2.9 Albumin/Globulin Ratio 0.7 L Random Vancomycin 20.4 08/27/17 08/27/17 07:10 11:19 WBC RBC Hgb Hct MCV MCH MCHC RDW Plt Count MPV Immature Gran % Seg Neutrophils % Lymphocytes % Monocytes % Eosinophils % Basophils % Neutrophils # Lymphocytes # Monocytes # Eosinophils # Basophils # PT INR APTT Sample Site ABG pH ABG pCO2 ABG pO2 ABG HCO3 ABG Total CO2 ABG O2 Saturation ABG Base Excess Esteban Test Respiration Rate O2 Delivery Device Blood Gas Modality Inspired O2 Tidal Volume PEEP Sodium Potassium Chloride Carbon Dioxide BUN Creatinine Est GFR ( Amer) Est GFR (Non-Af Amer) BUN/Creatinine Ratio Glucose POC Glucose 142 H 163 H Calculated Osmolality Calcium Total Bilirubin Direct Bilirubin Indirect Bilirubin AST ALT Alkaline Phosphatase Serum Total Protein Albumin Globulin Albumin/Globulin Ratio Random Vancomycin - ABG Interpretation ABG results: ABG ABG pH 7.45 pH Units (7.32-7.45) 08/27/17 05:25 ABG pCO2 42 mmHg (35-45) 08/27/17 05:25 ABG pO2 90 mmHg (85-104) 08/27/17 05:25 ABG O2 Saturation 97 % (95-98) 08/27/17 05:25 PT/INR, D-dimer PT 13.7 Seconds (9.4-12.1) H 08/27/17 03:10
--- NOTE | 2017-08-27 08:55 | Pulmonology Progress Note ---
<Robert Rodriguez W - Last Filed: 08/27/17 10:34> Date of Encounter: 08/27/17 Assessment and Plan (1) Cardiac arrest Current Visit: Yes Status: Acute (2) Diabetic ulcer of both feet Current Visit: Yes Status: Chronic (3) Diabetes Current Visit: Yes Status: Chronic 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 mellitus mcc insulin use: without termite exterminator use Qualified Code( s): E11.621 - Type 2 diabetes mellitus with foot ulcer; L97.509 - Non-pressure chronic ulcer of other part of unspecified foot with unspecified severity; L97.509 - Non-pressure chronic ulcer of other part of unspecified foot with unspecified severity; L97.509 - Non-pressure chronic ulcer of other part of unspecified foot with unspecified severity; L97.509 - Non-pressure chronic ulcer of other part of unspecified foot with unspecified severity (4) DVT prophylaxis Current Visit: Yes Status: Acute (5) CAD (coronary artery disease) Current Visit: Yes Status: Chronic Qualifiers: Coronary Disease-Associated Artery/Lesion type: [place] artery [place] vs. transplanted heart: [place] heart Associated angina: without angina Qualified Code(s): I25.10 - Atherosclerotic heart disease of [place] coronary artery without angina pectoris (6) Acute respiratory failure Current Visit: Yes Status: Acute Qualifiers: Respiratory failure complication: hypoxia Qualified Code(s): J96.01 - Acute respiratory failure with hypoxia (7) Septic shock Current Visit: Yes Status: Resolved (8) Goals of care, counseling/discussion Current Visit: Yes Status: Acute (9) Encephalopathy Current Visit: Yes Status: Acute (10) Seizure Current Visit: Yes Status: Acute Objective PUL Vital signs: Last Vital Signs Temp 97.4 F L 08/27/17 07:24 Pulse 79 08/27/17 07:35 Resp 19 08/27/17 07:35 BP 190/87 08/27/17 07:35 Pulse Ox 95 08/27/17 07:35 Ventilator Settings Ventilator Settings: Ventilator Settings, Last 8 Hours Ventilator Mode CPAP Ventilator Mode CPAP Ventilator Mode VC+ Ventilator Mode VC+ Ventilator Mode VC+ Ventilator Mode VC+ Ventilator Mode VC+ Ventilator Mode VC+ Ventilator Mode VC+ Ventilator Mode VC+ Ventilator Mode VC+ Ventilator Mode VC+ Ventilator Tidal Volume 390 Setting Ventilator Tidal Volume 390 Setting Ventilator Tidal Volume 390 Setting Ventilator Tidal Volume 390 Setting Ventilator Tidal Volume 390 Setting Ventilator Tidal Volume 390 Setting Ventilator Tidal Volume 390 Setting Ventilator Tidal Volume 390 Setting Ventilator Tidal Volume 390 Setting Ventilator Tidal Volume 390 Setting Ventilator Respiratory Rate 12 Setting Ventilator Respiratory Rate 12 Setting Ventilator Respiratory Rate 12 Setting Ventilator Respiratory Rate 12 Setting Ventilator Respiratory Rate 12 Setting Ventilator Respiratory Rate 12 Setting Ventilator Respiratory Rate 12 Setting Ventilator Respiratory Rate 12 Setting Ventilator Respiratory Rate 12 Setting Ventilator Respiratory Rate 12 Setting Actual Respiratory Rate 22 Actual Respiratory Rate 21 Actual Respiratory Rate 18 Actual Respiratory Rate 18 Actual Respiratory Rate 18 Actual Respiratory Rate 21 Actual Respiratory Rate 17 Actual Respiratory Rate 18 Positive End Expiratory 5 Pressure Positive End Expiratory 5 Pressure Positive End Expiratory 5 Pressure Positive End Expiratory 5 Pressure Positive End Expiratory 5 Pressure Positive End Expiratory 5 Pressure Positive End Expiratory 5 Pressure Positive End Expiratory 5 Pressure Positive End Expiratory 5 Pressure Positive End Expiratory 5 Pressure Positive End Expiratory 5 Pressure Positive End Expiratory 5 Pressure Peak Inspiratory Airway 11 Pressure Peak Inspiratory Airway 11 Pressure Peak Inspiratory Airway 17 Pressure Peak Inspiratory Airway 16 Pressure Peak Inspiratory Airway 16 Pressure Peak Inspiratory Airway 16 Pressure Peak Inspiratory Airway 15 Pressure Peak Inspiratory Airway 20 Pressure Results - Laboratory Findings CBC and BMP: 08/27/17 03:10 08/27/17 03:10 ABG ABG pH 7.45 pH Units (7.32-7.45) 08/27/17 05:25 ABG pCO2 42 mmHg (35-45) 08/27/17 05:25 ABG pO2 90 mmHg (85-104) 08/27/17 05:25 ABG O2 Saturation 97 % (95-98) 08/27/17 05:25 PT/INR, D-dimer PT 13.7 Seconds (9.4-12.1) H 08/27/17 03:10 Abnormal lab findings: Abnormal lab results RBC 2.80 M/mcL (4.19-5.50) L 08/27/17 03:10 Hgb 8.4 g/dL (12.9-16.9) L 08/27/17 03:10 Hct 25.5 % (37.5-50.1) L 08/27/17 03:10 RDW 15.7 % (11.5-14.5) H 08/27/17 03:10 Nucleated RBCs/100 WBC 0.1 /100 WBC (0) H 08/23/17 04:30 Platelet Estimate Decreased (Normal) L 08/20/17 04:45 Immature Plt Fraction 10.3 % (1.1-6.1) H 08/24/17 07:55 ESR 28 mm/hr (0-10) H 08/23/17 21:20 PT 13.7 Seconds (9.4-12.1) H 08/27/17 03:10 ABG HCO3 29 mEq/L (21-27) H 08/27/17 05:25 ABG Total CO2 30 mEq/L (20-26) H 08/27/17 05:25 ABG Base Excess 5 mEq/L (-2 to 3) H 08/27/17 05:25 Potassium 3.3 mEq/L (3.5-4.5) L 08/27/17 03:10 BUN 82 mg/dL (8-26) H 08/27/17 03:10 Creatinine 3.06 mg/dL (0.72-1.25) H 08/27/17 03:10 Est GFR ( Amer) 24 (> 60) L 08/27/17 03:10 Est GFR (Non-Af Amer) 20 (> 60) L 08/27/17 03:10 BUN/Creatinine Ratio 27 (6-26) H 08/27/17 03:10 Glucose 133 mg/dL (70-99) H 08/27/17 03:10 POC Glucose 142 (58-89) H 08/27/17 07:10 Hemoglobin A1c 7.4 % (-5.6) H 08/15/17 05:02 Calculated Osmolality 319 (280-300) H 08/27/17 03:10 Calcium 8.0 mg/dL (8.6-10.8) L 08/27/17 03:10 Ionized Calcium 1.12 mmol/L (1.15-1.35) L 08/26/17 10:40 Lactate Dehydrogenase 149 Units/L (159-327) L 08/24/17 08:51 Troponin I 1.08 ng/mL (0-0.03) H* 08/15/17 12:00 C-Reactive Protein 86 mg/L (Less than 5) H 08/23/17 13:48 Serum Total Protein 4.9 g/dL (6.0-8.3) L 08/27/17 03:10 Albumin 2.0 g/dL (3.5-5.0) L 08/27/17 03:10 Albumin/Globulin Ratio 0.7 (1.1-2.2) L 08/27/17 03:10 Urine Clarity Turbid (Clear) A 08/14/17 20:57 Urine Protein >=300 mg/dL (Neg-Trace) H 08/14/17 20:57 Urine Ketones Trace mg/dL (Negative) H 08/14/17 20:57 Urine Blood Large (Negative) H 08/14/17 20:57 Ur Leukocyte Esterase Large (Negative) H 08/14/17 20:57 Urine Microscopic RBC TNTC per hpf (0-3) H 08/14/17 20:57 Urine Microscopic WBC TNTC per hpf (0-3) H 08/14/17 20:57 Urine Yeast Few per hpf (None Seen) H 08/14/17 20:57 Ur Culture Indicated? YES (NO) A 08/14/17 20:57 Stool Occult Blood Positive (Negative) A 08/23/17 22:25 Vancomycin Trough 39.8 mcg/mL (10-20) H* 08/16/17 21:05 - Clinical Findings Intake & Output: Intake & Output 08/26/17 08/27/17 08/27/17 23:59 07:59 15:59 Intake Total 50 / 50 300 / 300 Output Total 200 / 200 1050 / 1050 Balance -150 / -150 -750 / -750 Weight 94 kg Consult Discharge Plan - Plan Referrals: Poncho Noriega MD [Primary Care Provider] - - Attending Attestation I examined this patient and my medical decision-making was reviewed with the Resident Physician. I agree with the documented findings, disposition and treatment plan as described except to the extent set forth below. We independently had [id number] contact with the patient Patient seen and examined at bedside Labs, radiology, chart personally reviewed. Management was reviewed during multidisciplinary critical care rounds. WARP CHANGER: awake and follow commands Pulm: Passed SAT but poor parameters cont PS today and A/C at night. Cards: s/p Cardiac Arrest and history of CAD with cardiogenic edema cont diuresis. FEN-GI: Enteral nutrition on hold. for SBT cont PPI prophylaxis until liberated from vent. Recent GI bleed stable H/H Renal: Stable YUMIKO on CKD. Nephro following UOP appropriate ID: cont ABx for LE Osteomyelitis/uclers ID following Heme/Onc: DVT prophylaxis Given Endo: Glucose Monitored Integ/MSK: Skin Care per routine ICU Nursing Protocol to prevent ulcers. Lines: All lines examined without evidence of infection : Dispo: Reamain in ICU for on ongoing care CODE: DNAR. Appreciate Palliative Care assessement and recs. <Yohana Ocasio - Last Filed: 08/27/17 17:13> Date of Encounter: 08/27/17 Time of Encounter: 07:45 Assessment and Plan (1) Acute respiratory failure Current Visit: Yes Status: Acute -remains intubated on CPAP, will reassess his potential for successful vent liberation tomorrow morning Qualifiers: Respiratory failure complication: hypoxia Qualified Code(s): J96.01 - Acute respiratory failure with hypoxia (2) Acute GI bleeding Current Visit: Yes Status: Acute -Hgb and Hct stable (8.4 and 25.5), no active bleeding (3) Cardiac arrest Current Visit: Yes Status: Acute -possibly 2/2 ACS--no invasive management at this time, continue medical management -remains hemodynamically stable -continue ASA, statin -continue to monitor on tele (4) Septic shock Current Visit: Yes Status: Resolved -shock resolved, afebrile, pulse WNL, BP stable, -possibly d/t aspiration PNA, complicated by b/l diabetic foot ulcers already being treated with IV abx -continue vancomycin (pharm to dose) and zosyn -ID following, recommendations appreciated (5) Acute kidney injury Current Visit: Yes Status: Acute -creatinine worsened (3.06 today) since episode of GIB a couple days ago -on electrolyte protocol -nephrology consulted, recommendations appreciated -no indications for dialysis at this time (6) Diabetic ulcer of both feet Current Visit: Yes Status: Chronic -per ID, continue treatment with IV abx (pharmacy dosing Vancomycin) until 08/31 then d/c abx (unless additional infectious disease identified) -will continue wound care -podiatry following at a distance -ID consulted, recommendations appreciated (7) CAD (coronary artery disease) Current Visit: Yes Status: Chronic -ASA, beta bro -hemodynamically stable, continue tele monitoring Qualifiers: Coronary Disease-Associated Artery/Lesion type: [place] artery [place] vs. transplanted heart: [place] heart Associated angina: without angina Qualified Code(s): I25.10 - Atherosclerotic heart disease of [place] coronary artery without angina pectoris (8) Diabetes Current Visit: Yes Status: Chronic -SSI (Lispro) for glucose control -continue to monitor glucose and adjust insulin as needed 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 mellitus termite exterminator insulin use: without termite exterminator use Qualified Code( s): E11.621 - Type 2 diabetes mellitus with foot ulcer; L97.509 - Non-pressure chronic ulcer of other part of unspecified foot with unspecified severity; L97.509 - Non-pressure chronic ulcer of other part of unspecified foot with unspecified severity; L97.509 - Non-pressure chronic ulcer of other part of unspecified foot with unspecified severity; L97.509 - Non-pressure chronic ulcer of other part of unspecified foot with unspecified severity (9) Encephalopathy Current Visit: Yes Status: Acute -awake, follows commands -communication limited by ETT and bilateral UE restraints -head CT stable, no acute intracranial abnormalities (10) DVT prophylaxis Current Visit: Yes Status: Acute -resuming heparin 5000 units SubQ Subjective Principal diagnosis: Cardiac Arrest Interval history: Seen and examined at bedside. Pt remains intubated, on CPAP. Nods head when asked if he is having chest pain. When asked what pt would like to have happen if he gets extubated and had trouble breathing, would he want to be intubated, he nods head yes. Objective PUL Vital signs: Last Vital Signs Temp 97.4 F L 08/27/17 07:24 Pulse 79 08/27/17 07:35 Resp 19 08/27/17 07:35 BP 190/87 08/27/17 07:35 Pulse Ox 95 08/27/17 07:35 General appearance: no acute distress Eyes: nonicteric Neck: supple Effort: normal Auscultation: bilateral: clear Cardiovascular: regular rate and rhythm Gastrointestinal: normoactive bowel sounds, soft, non-tender, non-distended Extremities: edema Ventilator Settings Ventilator Settings: Ventilator Settings, Last 8 Hours Ventilator Mode CPAP Ventilator Mode CPAP Ventilator Mode VC+ Ventilator Mode VC+ Ventilator Mode VC+ Ventilator Mode VC+ Ventilator Mode VC+ Ventilator Mode VC+ Ventilator Mode VC+ Ventilator Mode VC+ Ventilator Mode VC+ Ventilator Mode VC+ Ventilator Tidal Volume 390 Setting Ventilator Tidal Volume 390 Setting Ventilator Tidal Volume 390 Setting Ventilator Tidal Volume 390 Setting Ventilator Tidal Volume 390 Setting Ventilator Tidal Volume 390 Setting Ventilator Tidal Volume 390 Setting Ventilator Tidal Volume 390 Setting Ventilator Tidal Volume 390 Setting Ventilator Tidal Volume 390 Setting Ventilator Respiratory Rate 12 Setting Ventilator Respiratory Rate 12 Setting Ventilator Respiratory Rate 12 Setting Ventilator Respiratory Rate 12 Setting Ventilator Respiratory Rate 12 Setting Ventilator Respiratory Rate 12 Setting Ventilator Respiratory Rate 12 Setting Ventilator Respiratory Rate 12 Setting Ventilator Respiratory Rate 12 Setting Ventilator Respiratory Rate 12 Setting Actual Respiratory Rate 22 Actual Respiratory Rate 21 Actual Respiratory Rate 18 Actual Respiratory Rate 18 Actual Respiratory Rate 18 Actual Respiratory Rate 21 Actual Respiratory Rate 17 Actual Respiratory Rate 18 Positive End Expiratory 5 Pressure Positive End Expiratory 5 Pressure Positive End Expiratory 5 Pressure Positive End Expiratory 5 Pressure Positive End Expiratory 5 Pressure Positive End Expiratory 5 Pressure Positive End Expiratory 5 Pressure Positive End Expiratory 5 Pressure Positive End Expiratory 5 Pressure Positive End Expiratory 5 Pressure Positive End Expiratory 5 Pressure Positive End Expiratory 5 Pressure Peak Inspiratory Airway 11 Pressure Peak Inspiratory Airway 11 Pressure Peak Inspiratory Airway 17 Pressure Peak Inspiratory Airway 16 Pressure Peak Inspiratory Airway 16 Pressure Peak Inspiratory Airway 16 Pressure Peak Inspiratory Airway 15 Pressure Peak Inspiratory Airway 20 Pressure Results - Laboratory Findings CBC and BMP: 08/27/17 03:10 08/27/17 03:10 ABG ABG pH 7.45 pH Units (7.32-7.45) 08/27/17 05:25 ABG pCO2 42 mmHg (35-45) 08/27/17 05:25 ABG pO2 90 mmHg (85-104) 08/27/17 05:25 ABG O2 Saturation 97 % (95-98) 08/27/17 05:25 PT/INR, D-dimer PT 13.7 Seconds (9.4-12.1) H 08/27/17 03:10 Abnormal lab findings: Abnormal lab results RBC 2.80 M/mcL (4.19-5.50) L 08/27/17 03:10 Hgb 8.4 g/dL (12.9-16.9) L 08/27/17 03:10 Hct 25.5 % (37.5-50.1) L 08/27/17 03:10 RDW 15.7 % (11.5-14.5) H 08/27/17 03:10 Nucleated RBCs/100 WBC 0.1 /100 WBC (0) H 08/23/17 04:30 Platelet Estimate Decreased (Normal) L 08/20/17 04:45 Immature Plt Fraction 10.3 % (1.1-6.1) H 08/24/17 07:55 ESR 28 mm/hr (0-10) H 08/23/17 21:20 PT 13.7 Seconds (9.4-12.1) H 08/27/17 03:10 ABG HCO3 29 mEq/L (21-27) H 08/27/17 05:25 ABG Total CO2 30 mEq/L (20-26) H 08/27/17 05:25 ABG Base Excess 5 mEq/L (-2 to 3) H 08/27/17 05:25 Potassium 3.3 mEq/L (3.5-4.5) L 08/27/17 03:10 BUN 82 mg/dL (8-26) H 08/27/17 03:10 Creatinine 3.06 mg/dL (0.72-1.25) H 08/27/17 03:10 Est GFR ( Amer) 24 (> 60) L 08/27/17 03:10 Est GFR (Non-Af Amer) 20 (> 60) L 08/27/17 03:10 BUN/Creatinine Ratio 27 (6-26) H 08/27/17 03:10 Glucose 133 mg/dL (70-99) H 08/27/17 03:10 POC Glucose 142 (58-89) H 08/27/17 07:10 Hemoglobin A1c 7.4 % (-5.6) H 08/15/17 05:02 Calculated Osmolality 319 (280-300) H 08/27/17 03:10 Calcium 8.0 mg/dL (8.6-10.8) L 08/27/17 03:10 Ionized Calcium 1.12 mmol/L (1.15-1.35) L 08/26/17 10:40 Lactate Dehydrogenase 149 Units/L (159-327) L 08/24/17 08:51 Troponin I 1.08 ng/mL (0-0.03) H* 08/15/17 12:00 C-Reactive Protein 86 mg/L (Less than 5) H 08/23/17 13:48 Serum Total Protein 4.9 g/dL (6.0-8.3) L 08/27/17 03:10 Albumin 2.0 g/dL (3.5-5.0) L 08/27/17 03:10 Albumin/Globulin Ratio 0.7 (1.1-2.2) L 08/27/17 03:10 Urine Clarity Turbid (Clear) A 08/14/17 20:57 Urine Protein >=300 mg/dL (Neg-Trace) H 08/14/17 20:57 Urine Ketones Trace mg/dL (Negative) H 08/14/17 20:57 Urine Blood Large (Negative) H 08/14/17 20:57 Ur Leukocyte Esterase Large (Negative) H 08/14/17 20:57 Urine Microscopic RBC TNTC per hpf (0-3) H 08/14/17 20:57 Urine Microscopic WBC TNTC per hpf (0-3) H 08/14/17 20:57 Urine Yeast Few per hpf (None Seen) H 08/14/17 20:57 Ur Culture Indicated? YES (NO) A 08/14/17 20:57 Stool Occult Blood Positive (Negative) A 08/23/17 22:25 Vancomycin Trough 39.8 mcg/mL (10-20) H* 08/16/17 21:05 - Clinical Findings Intake & Output: Intake & Output 08/26/17 08/27/17 08/27/17 23:59 07:59 15:59 Intake Total 50 / 50 300 / 300 Output Total 200 / 200 1050 / 1050 Balance -150 / -150 -750 / -750 Weight 94 kg - VTE Documentation of Mechanical Device: Intermittent pneumatic compression device
[2017-08-27] MEDS: Piperacillin/Tazobactam 3.375 GM in D5% in Water 50 ML IVPB SCH ×3 (08:57→23:21)
[2017-08-27] MEDS: *HR* Heparin 5,000 UNIT/ML VIAL SQ SCH ×2 (12:59→21:03)
--- NOTE | 2017-08-27 13:08 | Infectious Disease Progress No ---
Date of Encounter: 08/27/17 Time of Encounter: 13:06 - Assessment and Plan (1) Cardiac arrest Current Visit: Yes Status: Resolved Status post witnessed cardiac arrest 08/14/17. Etiology unclear. ROSC after CPR and ACLS protocol initiation. (2) Shock Current Visit: Yes Status: Resolved Septic vs. cardiogenic. The patient had cardiac arrest followed by hypotension requiring vasopressors, leukocytosis, and fever. Vasopressors have been weaned off. WBC normalized. Afebrile. BP stable. Management per the ICU team. (3) Osteomyelitis Current Visit: No Status: Acute Location: Left heel. Diagnosed on previous hospitalization. Patient discharged on IV antibiotics, but not sure who was following these in the outpatient setting. MRI of the left foot completed 07/22/17 showed findings consistent with early osteomyelitis vs. reactive osteitis. Podiatry was consulted, but no surgical intervention was done as the ulcer looked good and the patient had improved clinically. According to the discharge summary, the patient was discharged on IV Vancomycin and IV Levaquin. Cultures at that time grew out MRSA and Shewanella. Clinically, the left heel does look a little worse than when I saw it during his previous admission. There is surrounding erythema and the ulcer appears larger. ESR 28 and 86. Podiatry consulted. Appreciate recommendations. Continue Vancomycin IV. Pharmacy to dose. Goal trough approximately 15. Continue Zosyn 3.375 grams IV Q8H. Duration of treatment depends on the clinical picture, but likely a total of 6 weeks of IV antibiotics. Treat through 08/31/17 and if no additional infectious diseases are identified, can discontinue antibiotics. Qualifiers: Osteomyelitis type: other acute Osteomyelitis location: foot Laterality: left Qualified Code(s): M86.172 - Other acute osteomyelitis, left ankle and foot (4) Abnormal CT scan, chest Current Visit: Yes Status: Acute CT scan of the chest showed multiple fractured ribs, small to moderate bilateral pleural effusions, and pulmonary consolidative changed and multifocal infoltrates bilaterally suggestive of PNA. Repeat CXR 08/22/17 shows persistent bilateral pleural effusions and patchy airspace opacities, mildly improved compared to the CT of the chest. Will continue antibiotics as above for now for OM, which will also cover for pneumonia. (5) Acute kidney injury Current Visit: Yes Status: Acute Likely multifactorial: shock + cardiac arrest + hypotension + nephrotoxic medications. Stable. Nephrology consulted and following. Continue to trend. Dose-adjust antibiotics. Avoid nephrotoxins as able. (6) Elevated troponin Current Visit: No Status: Resolved Likely secondary to cardiac arrest. Cardiology consulted and signed off. (7) Acute respiratory failure Current Visit: Yes Status: Acute Secondary to cardiac arrest, persistent due to acute encephalopathy. Remains intubated. Possible extubation later today. Management per the ICU team. Qualifiers: Respiratory failure complication: hypoxia Qualified Code(s): J96.01 - Acute respiratory failure with hypoxia (8) Encephalopathy Current Visit: Yes Status: Acute Appears improved. Awake and follows commands. CT head negative for acute findings x 2. EEG negative. (9) Pressure ulcer of left heel, unstageable Current Visit: No Status: Acute Previously diagnosed with OM of the left heel. Podiatry consulted. No surgical intervention at this time. Inflammatory markers are improved. Continue wound care and offloading. 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 Markedly improved since I saw the ulcers during his last hospital stay. Continue wound care. (11) Broken ribs Current Visit: Yes Status: Acute Secondary to CPR. Pain management per the primary team. Qualifiers: Encounter type: initial encounter Rib fracture type: multiple ribs Fracture type: closed Laterality: bilateral Qualified Code(s): S22.43XA - Multiple fractures of ribs, bilateral, initial encounter for closed fracture (12) Fluid overload Current Visit: Yes Status: Acute Management per the ICU and nephrology teams. Improved. Qualifiers: Hypervolemia type: other Qualified Code(s): E87.79 - Other fluid overload (13) CHF (congestive heart failure) Current Visit: Yes Status: Chronic Qualifiers: Congestive heart failure type: unspecified congestive heart failure type Congestive heart failure chronicity: acute Qualified Code(s): I50.9 - Heart failure, unspecified (14) CAD (coronary artery disease) Current Visit: Yes Status: Chronic Qualifiers: Coronary Disease-Associated Artery/Lesion type: [place] artery [place] vs. transplanted heart: [place] heart Associated angina: without angina Qualified Code(s): I25.10 - Atherosclerotic heart disease of [place] coronary artery without angina pectoris (15) Pleural effusion Current Visit: Yes Status: Acute Location: Bilateral. Likely secondary to fluid volume overload. Management per the pulmonary team. (16) GI bleed Current Visit: Yes Status: Acute UGI bleed over the weekend. Status post EGD by Dr. Norton. No active bleeding noted on exam. Qualifiers: GI bleed type/associated pathology: melena Qualified Code(s): K92.1 - Melena - Subjective Interval history: Patient seen and examined. No acute events noted overnight. Patient remains intubated. Sedation off and patient awakens easily to verbal stimuli. Follows commands. Complains of pain in his legs. Case discussed with the primary team. Possible extubation later today. Infect Dis PN-Objective Data - Labs CBC & Chem 7: 08/27/17 03:10 08/27/17 03:10 Labs: Laboratory Results - last 24 hr 08/24/17 08/26/17 08/26/17 08:51 15:46 20:19 WBC RBC Hgb Hct MCV MCH MCHC RDW Plt Count MPV Immature Gran % Seg Neutrophils % Lymphocytes % Monocytes % Eosinophils % Basophils % Neutrophils # Lymphocytes # Monocytes # Eosinophils # Basophils # Haptoglobin 87 PT INR APTT Sample Site ABG pH ABG pCO2 ABG pO2 ABG HCO3 ABG Total CO2 ABG O2 Saturation ABG Base Excess [place] Test Respiration Rate O2 Delivery Device Blood Gas Modality Inspired O2 Tidal Volume PEEP Sodium Potassium Chloride Carbon Dioxide BUN Creatinine Est GFR ( Amer) Est GFR (Non-Af Amer) BUN/Creatinine Ratio Glucose POC Glucose 133 H 126 H Calculated Osmolality Calcium Total Bilirubin Direct Bilirubin Indirect Bilirubin AST ALT Alkaline Phosphatase Serum Total Protein Albumin Globulin Albumin/Globulin Ratio Random Vancomycin 08/26/17 08/27/17 08/27/17 23:47 02:56 03:10 WBC 9.8 RBC 2.80 L Hgb 8.4 L Hct 25.5 L MCV 91.1 MCH 30.0 MCHC 32.9 RDW 15.7 H Plt Count 154 MPV 11.3 Immature Gran % 0.5 Seg Neutrophils % 80.9 Lymphocytes % 7.6 Monocytes % 10.0 Eosinophils % 0.8 Basophils % 0.2 Neutrophils # 7.9 Lymphocytes # 0.7 Monocytes # 1.0 Eosinophils # 0.1 Basophils # 0.0 Haptoglobin PT INR APTT Sample Site ABG pH ABG pCO2 ABG pO2 ABG HCO3 ABG Total CO2 ABG O2 Saturation ABG Base Excess [place] Test Respiration Rate O2 Delivery Device Blood Gas Modality Inspired O2 Tidal Volume PEEP Sodium Potassium Chloride Carbon Dioxide BUN Creatinine Est GFR ( Amer) Est GFR (Non-Af Amer) BUN/Creatinine Ratio Glucose POC Glucose 139 H 144 H Calculated Osmolality Calcium Total Bilirubin Direct Bilirubin Indirect Bilirubin AST ALT Alkaline Phosphatase Serum Total Protein Albumin Globulin Albumin/Globulin Ratio Random Vancomycin 08/27/17 08/27/17 08/27/17 03:10 03:10 03:10 WBC RBC Hgb Hct MCV MCH MCHC RDW Plt Count MPV Immature Gran % Seg Neutrophils % Lymphocytes % Monocytes % Eosinophils % Basophils % Neutrophils # Lymphocytes # Monocytes # Eosinophils # Basophils # Haptoglobin PT 13.7 H INR 1.3 APTT 33.5 Sample Site ABG pH ABG pCO2 ABG pO2 ABG HCO3 ABG Total CO2 ABG O2 Saturation ABG Base Excess [place] Test Respiration Rate O2 Delivery Device Blood Gas Modality Inspired O2 Tidal Volume PEEP Sodium 141 Potassium 3.3 L Chloride 106 Carbon Dioxide 27 BUN 82 H Creatinine 3.06 H Est GFR ( Amer) 24 L Est GFR (Non-Af Amer) 20 L BUN/Creatinine Ratio 27 H Glucose 133 H POC Glucose Calculated Osmolality 319 H Calcium 8.0 L Total Bilirubin 0.6 Direct Bilirubin 0.4 Indirect Bilirubin 0.2 AST 13 ALT 15 Alkaline Phosphatase 106 Serum Total Protein 4.9 L Albumin 2.0 L Globulin 2.9 Albumin/Globulin Ratio 0.7 L Random Vancomycin 20.4 08/27/17 08/27/17 08/27/17 05:25 07:10 11:19 WBC RBC Hgb Hct MCV MCH MCHC RDW Plt Count MPV Immature Gran % Seg Neutrophils % Lymphocytes % Monocytes % Eosinophils % Basophils % Neutrophils # Lymphocytes # Monocytes # Eosinophils # Basophils # Haptoglobin PT INR APTT Sample Site R Radial ABG pH 7.45 ABG pCO2 42 ABG pO2 90 ABG HCO3 29 H ABG Total CO2 30 H ABG O2 Saturation 97 ABG Base Excess 5 H [place] Test Positive Respiration Rate 12 O2 Delivery Device Adult Vent Blood Gas Modality ASSIST CONTROL Inspired O2 35.0 Tidal Volume 390 PEEP 5 Sodium Potassium Chloride Carbon Dioxide BUN Creatinine Est GFR ( Amer) Est GFR (Non-Af Amer) BUN/Creatinine Ratio Glucose POC Glucose 142 H 163 H Calculated Osmolality Calcium Total Bilirubin Direct Bilirubin Indirect Bilirubin AST ALT Alkaline Phosphatase Serum Total Protein Albumin Globulin Albumin/Globulin Ratio Random Vancomycin Cultures: Cultures 08/15/17 01:15 Blood Culture - Final Peripheral Venipuncture No growth. 08/14/17 22:34 Blood Culture - Final Peripheral Venipuncture No growth. 08/17/17 03:51 Sputum Culture - Final Sputum Serology 08/23/17 Range/Units 22:25 Stool Occult Blood Positive A (Negative) Exam - Constitutional Vitals: Temp Pulse Resp BP Pulse Ox 97.7 F 66 21 149/66 97 08/27/17 11:49 08/27/17 10:30 08/27/17 11:17 08/27/17 11:17 08/27/17 11:17 General appearance: average body habitus, cooperative, no acute distress - Head Head exam: Present: atraumatic, normal inspection, normocephalic - Eye Eye exam: Present: EOMI, normal appearance, PERRL Pupils: Present: normal accommodation - ENT ENT exam: Present: mucous membranes moist - Neck Neck exam: Present: normal inspection - Respiratory Respiratory exam: Present: CTAB. Absent: rales, respiratory distress, rhonchi, wheezes - Cardiovascular Cardiovascular exam: Present: RRR, +S1, +S2 - GI/Abdominal GI/Abdominal exam: Present: normal bowel sounds, soft. Absent: distended, tenderness Additional comments: OG tube currently clamped. Hernandez catheter draining clear yellow urine. Rectal tube with dark green liquid stool in the collection bag. - Extremities Exam Extremities exam: Present: pedal edema (1+ BLE). Absent: joint swelling, tenderness Additional comments: Bilateral foot dressings C/D/I. - Neurological Exam Neurological exam: Present: alert. Absent: no focal deficits - Skin Skin exam: Present: dry, intact, normal color, warm - VTE Documentation of Mechanical Device: Intermittent pneumatic compression device Consult Discharge Plan - Plan Referrals: Poncho Noriega MD [Primary Care Provider] -
--- NOTE | 2017-08-27 14:53 | Event Note ---
Date of Encounter: 08/27/17 Time of Encounter: 14:51 Discussed with patient's son, that the patient had told us this morning by nodding and he would want to be reintubated if he were to require it after extubation. we were not able to describe to the patient this morning about the consequences of reintubation requiring a tracheotomy and a PEG tube placement. Her discussion with patient's son who is his medical power of assistant prosecuting attorney the decision has been made that when the patient is extubated ask him if he wishes to be reintubated if he should have problems, if so we will reintubate make plans for 8 tracheotomy and PEG tube placement patient will go to [facility]. The patient is unable to comprehend or give us an answer family wishes the patient not to be reintubated. If that is the case at that point will make him DNR CCA DNI.
[2017-08-27] MEDS ORDERED: Furosemide 40 MG/4 ML VIAL IVP ONE (16:30)
[2017-08-27] MEDS: *HR* FentaNYL (PF) 100 MCG/2 ML VIAL IVP PRN ×2 (16:59→22:39)
[2017-08-28] MEDS: *HR* FentaNYL (PF) 100 MCG/2 ML VIAL IVP PRN (02:52)
[2017-08-28] MEDS: Lacri-Lube 3.5 GM TUBE BOTH EYES SCH ×3 (03:19→11:47)
[2017-08-28 03:32] LABS: Albumin 2.1 g/dL (3.5-5.0); Albumin/Globulin Ratio 0.7 (1.1-2.2); Bilirubin,Direct 0.4 mg/dL (0.0-0.5); Bilirubin,Indirect 0.2 mg/dL (0.0-1.2); Bilirubin,Total 0.6 mg/dL (0.2-1.2); Globulin 3.1 g/dL (2.4-3.5); Potassium 3.4 mEq/L (3.5-4.5); Total Protein 5.2 g/dL (6.0-8.3)
[2017-08-28] MEDS: Insulin LISPRO 300 UNITS/3 ML VIAL SQ SCH ×5 (03:34→20:43)
[2017-08-28 03:44] LABS: Basophils % 0.2 %; Eosinophils # 0.1 K/mcL (0.0-0.6); Eosinophils % 1.5 %; Hematocrit 26.7 % (37.5-50.1); Hemoglobin 8.7 g/dL (12.9-16.9); Immature Granulocytes % 0.3 % (0-4); Lymphocytes # 0.8 K/mcL (0.6-4.6); Mean Corpuscular HGB Conc 32.6 g/dL (31.6-35.5); Mean Corpuscular Volume 92.1 fL (83.0-100.0); Mean Platelet Volume 11.7 fL (9.4-12.4); Monocytes # 0.8 K/mcL (0.0-1.3); Monocytes % 8.6 %; Neutrophils # 7.4 K/mcL (1.6-8.9); Platelet Count 176 K/mcL (140-400); Red Cell Distribution Width 15.8 % (11.5-14.5); Segmented Neutrophils % 80.4 %
[2017-08-28] MEDS: Potassium Chloride 40 MEQ/200 ML BAG IVPB PRN (03:47)
[2017-08-28] MEDS: hydrALAZINE 10 MG TABLET PO SCH ×2 (05:05→11:46)
[2017-08-28] MEDS: *HR* Heparin 5,000 UNIT/ML VIAL SQ SCH ×3 (05:06→21:32)
--- NOTE | 2017-08-28 05:33 | Electrocardiograph Report ---
[address] [place] [address] Test Date: 2017-08-23 Pat Name: Varghese Mayorga Department: 109 Room: 07 Gender: M Vest Busheler: : 1940 Requested By: Ronit James Order Number: [id number] Reading MD: Martín Melo MD Measurements Intervals [place] Rate: 94 P: -28 MD: 111 QRS: 47 QRSD: 136 T: 35 QT: 369 QTc: 420 Interpretive Statements ATRIAL FIBRILLATION RIGHT BUNDLE BRANCH BLOCK Electronically Signed On 08-28-2017 5:31:39 EST by Martín Melo MD
--- NOTE | 2017-08-28 07:56 | Pulmonology Progress Note ---
<Yohana Ocasio - Last Filed: 08/28/17 12:01> Date of Encounter: 08/28/17 Time of Encounter: 07:55 Assessment and Plan (1) Acute respiratory failure Current Visit: Yes Status: Acute -liberated from vent this morning -now on BiPAP and tolerating decently well, SpO2 99% -per palliative note--patient informed that if he needs to be intubated again he 'll require tracheostomy, PEG tube, and go to LTAC; shrugged in response indicating he's unsure about these things -monitor closely Qualifiers: Respiratory failure complication: hypoxia Qualified Code(s): J96.01 - Acute respiratory failure with hypoxia (2) Acute GI bleeding Current Visit: Yes Status: Acute -resolved, H/H stable -no active bleeding (3) Cardiac arrest Current Visit: Yes Status: Acute -possibly 2/2 ACS--no invasive management at this time, continue medical management -remains hemodynamically stable -continue ASA, statin -continue to monitor on tele (4) Septic shock Current Visit: Yes Status: Resolved -shock resolved, afebrile, pulse WNL, BP stable -possibly d/t aspiration PNA, complicated by b/l diabetic foot ulcers already being treated with IV abx -continue vancomycin (pharm to dose) and zosyn -ID following (5) Acute kidney injury Current Visit: Yes Status: Acute -Cr appears to be relatively stable -on electrolyte protocol, electrolyte levels stable -nephrology consulted; no indications for dialysis at this time -suggest continued diuresis to help decrease pt's LE swelling (6) Diabetic ulcer of both feet Current Visit: Yes Status: Chronic -will continue treatment with IV abx (pharmacy dosing Vancomycin) until then d/c abx (unless additional infectious disease identified), as per ID -continue wound care -podiatry following at a distance -ID following (7) CAD (coronary artery disease) Current Visit: Yes Status: Chronic -ASA, beta bro -hemodynamically stable, continue tele monitoring Qualifiers: Coronary Disease-Associated Artery/Lesion type: [place] artery [place] vs. transplanted heart: [place] heart Associated angina: without angina Qualified Code(s): I25.10 - Atherosclerotic heart disease of [place] coronary artery without angina pectoris (8) Diabetes Current Visit: Yes Status: Chronic -SSI (Lispro) for glucose control -continue to monitor glucose and adjust insulin as needed 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 mellitus termite exterminator insulin use: without penitentiary use Qualified Code( s): E11.621 - Type 2 diabetes mellitus with foot ulcer; L97.509 - Non-pressure chronic ulcer of other part of unspecified foot with unspecified severity; L97.509 - Non-pressure chronic ulcer of other part of unspecified foot with unspecified severity; L97.509 - Non-pressure chronic ulcer of other part of unspecified foot with unspecified severity; L97.509 - Non-pressure chronic ulcer of other part of unspecified foot with unspecified severity (9) Encephalopathy Current Visit: Yes Status: Acute -arousable, doesn't fully follow verbal commands -head CT stable, no acute intracranial abnormalities (10) DVT prophylaxis Current Visit: Yes Status: Acute -heparin 5000 units SubQ Subjective Principal diagnosis: Cardiac Arrest Interval history: Seen and examined at bedside. Pt now on BiPAP. Arousable, but very drowsy and unable to cooperate/fully answer questions. Objective PUL Vital signs: Last Vital Signs Temp 97.7 F 08/28/17 07:44 Pulse 66 08/28/17 06:00 Resp 17 08/28/17 07:24 BP 151/78 08/28/17 07:24 Pulse Ox 97 08/28/17 07:24 General appearance: lethargic Eyes: nonicteric Neck: supple Effort: normal Auscultation: bilateral: clear (difficult to auscultate d/t BiPAP) Cardiovascular: regular rate and rhythm Gastrointestinal: normoactive bowel sounds, soft, non-tender, non-distended Integumentary: normal Extremities: edema unable to assess due to mental status (very drowsy, not fully cooperative) Ventilator Settings Ventilator Settings: Ventilator Settings, Last 8 Hours Ventilator Mode VC+ Ventilator Mode VC+ Ventilator Mode VC+ Ventilator Mode VC+ Ventilator Mode VC+ Ventilator Mode VC+ Ventilator Mode VC+ Ventilator Mode VC+ Ventilator Mode VC+ Ventilator Mode VC+ Ventilator Mode VC+ Ventilator Tidal Volume 390 Setting Ventilator Tidal Volume 390 Setting Ventilator Tidal Volume 390 Setting Ventilator Tidal Volume 390 Setting Ventilator Tidal Volume 390 Setting Ventilator Tidal Volume 390 Setting Ventilator Tidal Volume 390 Setting Ventilator Tidal Volume 390 Setting Ventilator Tidal Volume 390 Setting Ventilator Respiratory Rate 12 Setting Ventilator Respiratory Rate 12 Setting Ventilator Respiratory Rate 12 Setting Ventilator Respiratory Rate 12 Setting Ventilator Respiratory Rate 12 Setting Ventilator Respiratory Rate 12 Setting Ventilator Respiratory Rate 12 Setting Ventilator Respiratory Rate 12 Setting Ventilator Respiratory Rate 12 Setting Ventilator Respiratory Rate 12 Setting Actual Respiratory Rate 17 Actual Respiratory Rate 17 Actual Respiratory Rate 14 Actual Respiratory Rate 14 Actual Respiratory Rate 14 Actual Respiratory Rate 14 Actual Respiratory Rate 14 Actual Respiratory Rate 14 Actual Respiratory Rate 14 Actual Respiratory Rate 16 Actual Respiratory Rate 16 Positive End Expiratory 5 Pressure Positive End Expiratory 5 Pressure Positive End Expiratory 5 Pressure Positive End Expiratory 5 Pressure Positive End Expiratory 5 Pressure Positive End Expiratory 5 Pressure Positive End Expiratory 5 Pressure Positive End Expiratory 5 Pressure Positive End Expiratory 5.0 Pressure Positive End Expiratory 5 Pressure Positive End Expiratory 5 Pressure Peak Inspiratory Airway 10 Pressure Peak Inspiratory Airway 13 Pressure Peak Inspiratory Airway 20 Pressure Peak Inspiratory Airway 20 Pressure Peak Inspiratory Airway 17 Pressure Peak Inspiratory Airway 17 Pressure Peak Inspiratory Airway 16 Pressure Peak Inspiratory Airway 16 Pressure Peak Inspiratory Airway 16 Pressure Peak Inspiratory Airway 17 Pressure Peak Inspiratory Airway 16 Pressure Results - Laboratory Findings CBC and BMP: 08/28/17 03:12 08/28/17 03:12 ABG ABG pH 7.45 pH Units (7.32-7.45) 08/27/17 05:25 ABG pCO2 42 mmHg (35-45) 08/27/17 05:25 ABG pO2 90 mmHg (85-104) 08/27/17 05:25 ABG O2 Saturation 97 % (95-98) 08/27/17 05:25 PT/INR, D-dimer PT 13.7 Seconds (9.4-12.1) H 08/27/17 03:10 Abnormal lab findings: Abnormal lab results RBC 2.90 M/mcL (4.19-5.50) L 08/28/17 03:12 Hgb 8.7 g/dL (12.9-16.9) L 08/28/17 03:12 Hct 26.7 % (37.5-50.1) L 08/28/17 03:12 RDW 15.8 % (11.5-14.5) H 08/28/17 03:12 Nucleated RBCs/100 WBC 0.1 /100 WBC (0) H 08/23/17 04:30 Platelet Estimate Decreased (Normal) L 08/20/17 04:45 Immature Plt Fraction 10.3 % (1.1-6.1) H 08/24/17 07:55 ESR 28 mm/hr (0-10) H 08/23/17 21:20 PT 13.7 Seconds (9.4-12.1) H 08/27/17 03:10 ABG HCO3 29 mEq/L (21-27) H 08/27/17 05:25 ABG Total CO2 30 mEq/L (20-26) H 08/27/17 05:25 ABG Base Excess 5 mEq/L (-2 to 3) H 08/27/17 05:25 Sodium 148 mEq/L (136-145) H 08/28/17 03:12 Potassium 3.4 mEq/L (3.5-4.5) L 08/28/17 03:12 BUN 82 mg/dL (8-26) H 08/28/17 03:12 Creatinine 2.99 mg/dL (0.72-1.25) H 08/28/17 03:12 Est GFR ( Amer) 25 (> 60) L 08/28/17 03:12 Est GFR (Non-Af Amer) 21 (> 60) L 08/28/17 03:12 BUN/Creatinine Ratio 27 (6-26) H 08/28/17 03:12 Glucose 117 mg/dL (70-99) H 08/28/17 03:12 POC Glucose 116 (58-89) H 08/28/17 07:21 Hemoglobin A1c 7.4 % (-5.6) H 08/15/17 05:02 Calculated Osmolality 332 (280-300) H 08/28/17 03:12 Calcium 8.0 mg/dL (8.6-10.8) L 08/28/17 03:12 Ionized Calcium 1.12 mmol/L (1.15-1.35) L 08/26/17 10:40 Lactate Dehydrogenase 149 Units/L (159-327) L 08/24/17 08:51 Troponin I 1.08 ng/mL (0-0.03) H* 08/15/17 12:00 C-Reactive Protein 86 mg/L (Less than 5) H 08/23/17 13:48 Serum Total Protein 5.2 g/dL (6.0-8.3) L 08/28/17 03:12 Albumin 2.1 g/dL (3.5-5.0) L 08/28/17 03:12 Albumin/Globulin Ratio 0.7 (1.1-2.2) L 08/28/17 03:12 Urine Clarity Turbid (Clear) A 08/14/17 20:57 Urine Protein >=300 mg/dL (Neg-Trace) H 08/14/17 20:57 Urine Ketones Trace mg/dL (Negative) H 08/14/17 20:57 Urine Blood Large (Negative) H 08/14/17 20:57 Ur Leukocyte Esterase Large (Negative) H 08/14/17 20:57 Urine Microscopic RBC TNTC per hpf (0-3) H 08/14/17 20:57 Urine Microscopic WBC TNTC per hpf (0-3) H 08/14/17 20:57 Urine Yeast Few per hpf (None Seen) H 08/14/17 20:57 Ur Culture Indicated? YES (NO) A 08/14/17 20:57 Stool Occult Blood Positive (Negative) A 08/23/17 22:25 Vancomycin Trough 39.8 mcg/mL (10-20) H* 08/16/17 21:05 - Clinical Findings Intake & Output: Intake & Output 08/27/17 08/27/17 08/28/17 15:59 23:59 07:59 Intake Total 50 / 50 50 / 50 50 / 50 Output Total 450 / 450 1200 / 1200 800 / 800 Balance -400 / -400 -1150 / -1150 -750 / -750 Weight 93 kg - VTE Documentation of Mechanical Device: Intermittent pneumatic compression device Consult Discharge Plan - Plan Referrals: Poncho Noriega MD [Primary Care Provider] - <Robert Rodriguez - Last Filed: 08/28/17 17:16> Date of Encounter: 08/28/17 Assessment and Plan (1) Cardiac arrest Current Visit: Yes Status: Resolved (2) Diabetic ulcer of both feet Current Visit: Yes Status: Chronic (3) Diabetes Current Visit: Yes Status: Chronic 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 mellitus termite exterminator insulin use: without penitentiary use Qualified Code( s): E11.621 - Type 2 diabetes mellitus with foot ulcer; L97.509 - Non-pressure chronic ulcer of other part of unspecified foot with unspecified severity; L97.509 - Non-pressure chronic ulcer of other part of unspecified foot with unspecified severity; L97.509 - Non-pressure chronic ulcer of other part of unspecified foot with unspecified severity; L97.509 - Non-pressure chronic ulcer of other part of unspecified foot with unspecified severity (4) DVT prophylaxis Current Visit: Yes Status: Acute (5) CAD (coronary artery disease) Current Visit: Yes Status: Chronic Qualifiers: Coronary Disease-Associated Artery/Lesion type: [place] artery [place] vs. transplanted heart: [place] heart Associated angina: without angina Qualified Code(s): I25.10 - Atherosclerotic heart disease of [place] coronary artery without angina pectoris (6) Acute respiratory failure Current Visit: Yes Status: Acute Qualifiers: Respiratory failure complication: hypoxia Qualified Code(s): J96.01 - Acute respiratory failure with hypoxia (7) Septic shock Current Visit: Yes Status: Resolved (8) Goals of care, counseling/discussion Current Visit: Yes Status: Acute (9) Encephalopathy Current Visit: Yes Status: Acute (10) Seizure Current Visit: Yes Status: Acute Objective PUL Vital signs: Last Vital Signs Temp 97.7 F 08/28/17 07:44 Pulse 68 08/28/17 09:00 Resp 23 08/28/17 09:00 BP 172/75 08/28/17 09:00 Pulse Ox 98 08/28/17 09:00 Ventilator Settings Ventilator Settings: Ventilator Settings, Last 8 Hours Ventilator Mode VC+ Ventilator Mode VC+ Ventilator Mode VC+ Ventilator Mode VC+ Ventilator Mode VC+ Ventilator Mode VC+ Ventilator Mode VC+ Ventilator Mode VC+ Ventilator Mode VC+ Ventilator Mode VC+ Ventilator Tidal Volume 390 Setting Ventilator Tidal Volume 390 Setting Ventilator Tidal Volume 390 Setting Ventilator Tidal Volume 390 Setting Ventilator Tidal Volume 390 Setting Ventilator Tidal Volume 390 Setting Ventilator Respiratory Rate 12 Setting Ventilator Respiratory Rate 12 Setting Ventilator Respiratory Rate 12 Setting Ventilator Respiratory Rate 12 Setting Ventilator Respiratory Rate 12 Setting Ventilator Respiratory Rate 12 Setting Ventilator Respiratory Rate 12 Setting Actual Respiratory Rate 18 Actual Respiratory Rate 17 Actual Respiratory Rate 18 Actual Respiratory Rate 17 Actual Respiratory Rate 14 Actual Respiratory Rate 14 Actual Respiratory Rate 14 Actual Respiratory Rate 14 Actual Respiratory Rate 14 Actual Respiratory Rate 14 Positive End Expiratory 5 Pressure Positive End Expiratory 5 Pressure Positive End Expiratory 5 Pressure Positive End Expiratory 5 Pressure Positive End Expiratory 5 Pressure Positive End Expiratory 5 Pressure Positive End Expiratory 5 Pressure Positive End Expiratory 5 Pressure Positive End Expiratory 5 Pressure Positive End Expiratory 5 Pressure Peak Inspiratory Airway 10 Pressure Peak Inspiratory Airway 10 Pressure Peak Inspiratory Airway 10 Pressure Peak Inspiratory Airway 13 Pressure Peak Inspiratory Airway 20 Pressure Peak Inspiratory Airway 20 Pressure Peak Inspiratory Airway 17 Pressure Peak Inspiratory Airway 17 Pressure Peak Inspiratory Airway 16 Pressure Peak Inspiratory Airway 16 Pressure Results - Laboratory Findings CBC and BMP: 08/28/17 03:12 08/28/17 03:12 ABG ABG pH 7.45 pH Units (7.32-7.45) 08/27/17 05:25 ABG pCO2 42 mmHg (35-45) 08/27/17 05:25 ABG pO2 90 mmHg (85-104) 08/27/17 05:25 ABG O2 Saturation 97 % (95-98) 08/27/17 05:25 PT/INR, D-dimer PT 13.7 Seconds (9.4-12.1) H 08/27/17 03:10 Abnormal lab findings: Abnormal lab results RBC 2.90 M/mcL (4.19-5.50) L 08/28/17 03:12 Hgb 8.7 g/dL (12.9-16.9) L 08/28/17 03:12 Hct 26.7 % (37.5-50.1) L 08/28/17 03:12 RDW 15.8 % (11.5-14.5) H 08/28/17 03:12 Nucleated RBCs/100 WBC 0.1 /100 WBC (0) H 08/23/17 04:30 Platelet Estimate Decreased (Normal) L 08/20/17 04:45 Immature Plt Fraction 10.3 % (1.1-6.1) H 08/24/17 07:55 ESR 28 mm/hr (0-10) H 08/23/17 21:20 PT 13.7 Seconds (9.4-12.1) H 08/27/17 03:10 ABG HCO3 29 mEq/L (21-27) H 08/27/17 05:25 ABG Total CO2 30 mEq/L (20-26) H 08/27/17 05:25 ABG Base Excess 5 mEq/L (-2 to 3) H 08/27/17 05:25 Sodium 148 mEq/L (136-145) H 08/28/17 03:12 Potassium 3.4 mEq/L (3.5-4.5) L 08/28/17 03:12 BUN 82 mg/dL (8-26) H 08/28/17 03:12 Creatinine 2.99 mg/dL (0.72-1.25) H 08/28/17 03:12 Est GFR ( Amer) 25 (> 60) L 08/28/17 03:12 Est GFR (Non-Af Amer) 21 (> 60) L 08/28/17 03:12 BUN/Creatinine Ratio 27 (6-26) H 08/28/17 03:12 Glucose 117 mg/dL (70-99) H 08/28/17 03:12 POC Glucose 116 (58-89) H 08/28/17 07:21 Hemoglobin A1c 7.4 % (-5.6) H 08/15/17 05:02 Calculated Osmolality 332 (280-300) H 08/28/17 03:12 Calcium 8.0 mg/dL (8.6-10.8) L 08/28/17 03:12 Ionized Calcium 1.12 mmol/L (1.15-1.35) L 08/26/17 10:40 Lactate Dehydrogenase 149 Units/L (159-327) L 08/24/17 08:51 Troponin I 1.08 ng/mL (0-0.03) H* 08/15/17 12:00 C-Reactive Protein 86 mg/L (Less than 5) H 08/23/17 13:48 Serum Total Protein 5.2 g/dL (6.0-8.3) L 08/28/17 03:12 Albumin 2.1 g/dL (3.5-5.0) L 08/28/17 03:12 Albumin/Globulin Ratio 0.7 (1.1-2.2) L 08/28/17 03:12 Urine Clarity Turbid (Clear) A 08/14/17 20:57 Urine Protein >=300 mg/dL (Neg-Trace) H 08/14/17 20:57 Urine Ketones Trace mg/dL (Negative) H 08/14/17 20:57 Urine Blood Large (Negative) H 08/14/17 20:57 Ur Leukocyte Esterase Large (Negative) H 08/14/17 20:57 Urine Microscopic RBC TNTC per hpf (0-3) H 08/14/17 20:57 Urine Microscopic WBC TNTC per hpf (0-3) H 08/14/17 20:57 Urine Yeast Few per hpf (None Seen) H 08/14/17 20:57 Ur Culture Indicated? YES (NO) A 08/14/17 20:57 Stool Occult Blood Positive (Negative) A 08/23/17 22:25 Vancomycin Trough 39.8 mcg/mL (10-20) H* 08/16/17 21:05 - Clinical Findings Intake & Output: Intake & Output 08/27/17 08/28/17 08/28/17 23:59 07:59 15:59 Intake Total 50 / 50 50 / 50 Output Total 1200 / 1200 800 / 800 Balance -1150 / -1150 -750 / -750 Weight 93 kg - Attending Attestation I examined this patient and my medical decision-making was reviewed with the Resident Physician. I agree with the documented findings, disposition and treatment plan as described except to the extent set forth below. We independently had [id number] contact with the patient Patient seen and examined at bedside Labs, radiology, chart personally reviewed. Management was reviewed during multidisciplinary critical care rounds. TILE SPRAYER: Delirious today and more agitated start Precedex narcotic for chest wall pain related to recent trauma continue to focus on sleep-wake cycle scientologist and avoidance of sensory deprivation Pulm: Successfully liberated from bed today continue noninvasive ventilation at the trial nasal cannula monitoring respiratory status he remains at high risk for deterioration requiring reintubation Cards: Status post cardiac arrest remains hypertensive which we are adjusting his antihypertensive for continued diuresis for pulmonary edema FEN-GI: Holding Introl limitations for extubation bedside speech and swallow evaluation prior to advancing diet. PPI prophylaxis Renal:YUMIKO on CKD stable continue to monitor electrolytes and replace per protocol ID: Chronic lower extremity osteomyelitis on appropriate antimicrobials infectious disease following Heme/Onc: H&H stable platelets stable continue DVT prophylaxis Endo: Glucose Monitored Integ/MSK: Skin Care per routine ICU Nursing Protocol to prevent ulcers. Lines: All lines examined without evidence of infection : Dispo: Remain in ICU for respiratory status monitoring CODE: Full
[2017-08-28] MEDS ORDERED: Vancomycin 500 MG in D5% in Water (Mini-Bag+) 100 ML IVPB ONE (08:00)
[2017-08-28] MEDS ORDERED: Furosemide 40 MG/4 ML VIAL IVP ONE ×2 (08:47→20:52)
--- NOTE | 2017-08-28 08:47 | Nephrology Progress Note ---
Date of Encounter: 08/28/17 Time of Encounter: 08:46 - Assessment and Plan (1) Acute kidney injury Current Visit: Yes Status: Acute The patient has acute kidney injury in the setting of a cardiac arrest that occurred in the extended care facility. The patient's serum creatinine has been relatively stable. There is no acute indication for dialysis. He likely requires continued diuresis because of his lower extremity swelling. This may benefit his respiratory status. (2) Diabetic ulcer of both feet Current Visit: Yes Status: Chronic (3) Atherosclerosis of [place] arteries of right leg with ulceration of other part of foot Current Visit: No Status: Chronic (4) Atherosclerosis of [place] arteries of left leg with ulceration of other part of foot Current Visit: No Status: Chronic Subjective Principal diagnosis: Cardiac Arrest Interval history: Patient remains intubated. He is currently sitting up in bed. He does not his head in response to questions. Serum creatinine is stable at 2.99. Urine output yesterday had increased to almost 2.5 L. Objective - Vital Signs Vital signs: Vital Signs Temp Pulse Resp BP Pulse Ox 08/28/17 07:44 97.7 F 08/28/17 07:24 17 151/78 97 08/28/17 06:11 17 166/75 97 08/28/17 06:00 66 14 159/70 98 08/28/17 05:05 67 17 164/73 98 08/28/17 04:46 98 F 08/28/17 04:26 98 F 08/28/17 04:00 71 14 177/75 98 08/28/17 03:42 14 177/75 98 08/28/17 03:00 75 14 173/78 97 08/28/17 02:53 72 08/28/17 02:00 72 14 158/71 97 08/28/17 01:09 14 97 08/28/17 01:00 69 16 161/66 97 08/28/17 00:00 70 14 169/75 97 08/27/17 23:17 14 158/68 97 08/27/17 23:00 96.9 F L 69 17 158/68 97 08/27/17 22:00 74 16 166/77 98 08/27/17 21:12 16 98 08/27/17 21:03 65 13 160/89 98 08/27/17 20:00 65 14 154/74 97 08/27/17 19:53 13 151/73 97 08/27/17 19:00 96.6 F L 61 13 151/73 96 08/27/17 18:30 61 14 148/74 98 08/27/17 17:30 63 15 151/77 97 08/27/17 17:15 21 144/69 97 08/27/17 16:30 65 16 154/73 97 08/27/17 15:52 19 150/70 98 08/27/17 15:30 64 20 150/70 97 08/27/17 14:30 65 23 151/70 97 08/27/17 13:30 68 21 158/66 97 08/27/17 13:19 25 160/67 97 08/27/17 12:30 70 22 145/63 98 08/27/17 11:49 97.7 F 08/27/17 11:30 69 23 148/62 97 08/27/17 11:17 21 149/66 97 08/27/17 10:30 66 21 146/60 98 08/27/17 09:30 68 18 145/68 08/27/17 09:19 17 142/65 97 Intake and Output 08/27/17 08/28/17 08/28/17 23:59 07:59 15:59 Intake Total 50 / 50 50 / 50 Output Total 1200 / 1200 800 / 800 Balance -1150 / -1150 -750 / -750 Intake: IV Fluids 50 / 50 50 / 50 Zosyn 3.375 GM In Dextrose 5% ( 50 / 50 50 / 50 ADD-[place]) 50 ML @ 12.5 mls/ hr IVPB Q8HR [facility] Rx#:[id number] Output: Rectal Tube 0 / 0 Catheter 1200 / 1200 800 / 800 Other: Weight 93 kg Blood Glucose* 116 Patient Weight 08/28/17 23:59 Weight 93 kg - General Appearance Exam: Patient is intubated. He is in no acute distress. Lungs coarse breath sounds. Heart regular rhythm. Abdomen is benign. There is 3+ lower extremity swelling. - Lab 08/28/17 03:12 08/28/17 03:12 Most recent lab results ABG pH 7.45 pH Units (7.32-7.45) 08/27/17 05:25 ABG pCO2 42 mmHg (35-45) 08/27/17 05:25 ABG pO2 90 mmHg (85-104) 08/27/17 05:25 ABG HCO3 29 mEq/L (21-27) H 08/27/17 05:25 ABG O2 Saturation 97 % (95-98) 08/27/17 05:25 Calcium 8.0 mg/dL (8.6-10.8) L 08/28/17 03:12 Phosphorus 3.9 mg/dL (2.3-4.7) 08/26/17 03:24 Magnesium 2.0 mg/dL (1.6-2.6) 08/26/17 03:24 - VTE Documentation of Mechanical Device: Intermittent pneumatic compression device Consult Discharge Plan - Plan Referrals: Poncho Noriega MD [Primary Care Provider] -
[2017-08-28] MEDS: amLODIPine 5 MG TABLET PO SCH (08:55)
[2017-08-28] MEDS: Aspirin 325 MG TABLET PO SCH (08:55)
--- NOTE | 2017-08-28 09:03 | Palliative Progress Note ---
<Santos Bird - Last Filed: 08/28/17 09:00> Date of Encounter: 08/28/17 Time of Encounter: 09:00 - Assessment and plan (1) Goals of care, counseling/discussion Current Visit: Yes Status: Acute Assessment and plan: DNR-CCA extubated at 8:35 on bipap patient told that if he needs to be intubated again he will require tracheostomy and PEG tube and will have to got to LT[facility]. Indicated he is unsure about this by shrugging. At this time difficult to have indept conversation due to being on bipap. (2) GI bleed Current Visit: Yes Status: Acute Assessment and plan: resolved. Required total 5 units PBRC Bleeding polyp on EGD which was cauterized hgb stable. Qualifiers: GI bleed type/associated pathology: melena Qualified Code(s): K92.1 - Melena (3) Cardiac arrest Current Visit: Yes Status: Acute Assessment and plan: Witnessed cardiac arrest patient now intubated not sedated BP stable plan as per primary (4) Acute kidney injury Current Visit: Yes Status: Acute Assessment and plan: 2nd to cardiopulmonary arrest, anemia, vacomycin stable. 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 ID on board. (6) Broken ribs Current Visit: Yes Status: Acute Assessment and plan: 2nd to cpr multiple broken ribs patient denies pain with breathing fentanyl prn for pain Qualifiers: Encounter type: initial encounter Rib fracture type: multiple ribs Fracture type: closed Laterality: bilateral Qualified Code(s): S22.43XA - Multiple fractures of ribs, bilateral, initial encounter for closed fracture - Time Spent With Patient Total time spent is greater than 50% in coordination of care (as documented) at patient's floor/unit and/or counseling patient: - Subjective Interval history: extubated this morning. on BIPAP. awake and alert and following commands. Denies pain with breathing. - Constitutional Vitals: Abnormal lab results RBC 2.90 M/mcL (4.19-5.50) L 08/28/17 03:12 Hgb 8.7 g/dL (12.9-16.9) L 08/28/17 03:12 Hct 26.7 % (37.5-50.1) L 08/28/17 03:12 RDW 15.8 % (11.5-14.5) H 08/28/17 03:12 Nucleated RBCs/100 WBC 0.1 /100 WBC (0) H 08/23/17 04:30 Platelet Estimate Decreased (Normal) L 08/20/17 04:45 Immature Plt Fraction 10.3 % (1.1-6.1) H 08/24/17 07:55 ESR 28 mm/hr (0-10) H 08/23/17 21:20 PT 13.7 Seconds (9.4-12.1) H 08/27/17 03:10 ABG HCO3 29 mEq/L (21-27) H 08/27/17 05:25 ABG Total CO2 30 mEq/L (20-26) H 08/27/17 05:25 ABG Base Excess 5 mEq/L (-2 to 3) H 08/27/17 05:25 Sodium 148 mEq/L (136-145) H 08/28/17 03:12 Potassium 3.4 mEq/L (3.5-4.5) L 08/28/17 03:12 BUN 82 mg/dL (8-26) H 08/28/17 03:12 Creatinine 2.99 mg/dL (0.72-1.25) H 08/28/17 03:12 Est GFR ( Amer) 25 (> 60) L 08/28/17 03:12 Est GFR (Non-Af Amer) 21 (> 60) L 08/28/17 03:12 BUN/Creatinine Ratio 27 (6-26) H 08/28/17 03:12 Glucose 117 mg/dL (70-99) H 08/28/17 03:12 POC Glucose 116 (58-89) H 08/28/17 07:21 Hemoglobin A1c 7.4 % (-5.6) H 08/15/17 05:02 Calculated Osmolality 332 (280-300) H 08/28/17 03:12 Calcium 8.0 mg/dL (8.6-10.8) L 08/28/17 03:12 Ionized Calcium 1.12 mmol/L (1.15-1.35) L 08/26/17 10:40 Lactate Dehydrogenase 149 Units/L (159-327) L 08/24/17 08:51 Troponin I 1.08 ng/mL (0-0.03) H* 08/15/17 12:00 C-Reactive Protein 86 mg/L (Less than 5) H 08/23/17 13:48 Serum Total Protein 5.2 g/dL (6.0-8.3) L 08/28/17 03:12 Albumin 2.1 g/dL (3.5-5.0) L 08/28/17 03:12 Albumin/Globulin Ratio 0.7 (1.1-2.2) L 08/28/17 03:12 Urine Clarity Turbid (Clear) A 08/14/17 20:57 Urine Protein >=300 mg/dL (Neg-Trace) H 08/14/17 20:57 Urine Ketones Trace mg/dL (Negative) H 08/14/17 20:57 Urine Blood Large (Negative) H 08/14/17 20:57 Ur Leukocyte Esterase Large (Negative) H 08/14/17 20:57 Urine Microscopic RBC TNTC per hpf (0-3) H 08/14/17 20:57 Urine Microscopic WBC TNTC per hpf (0-3) H 08/14/17 20:57 Urine Yeast Few per hpf (None Seen) H 08/14/17 20:57 Ur Culture Indicated? YES (NO) A 08/14/17 20:57 Stool Occult Blood Positive (Negative) A 08/23/17 22:25 Vancomycin Trough 39.8 mcg/mL (10-20) H* 08/16/17 21:05 - Additional findings Additional findings: General: mild distress, awake and alert Heart: sinus rhythm Lungs: clear anteriorly, on bipap Abdomen: Soft nontender, nondistended absent bowel sounds Skin: cool, dry Extremities: 2+ pedal edema, feet wrapped in gauze Neuro: alert, following commands, eyes open, able to move toes b/l and both upper extremities. Palliative Quality Palliative Quality: Screen for Code Status: Yes, Screen for Goals of Care: Yes, Screen for Pain: Yes, If Pain Regimen Started, Initiate Bowel Regimen: Yes, Screen for Nausea/Vomitting: No Code Status: 08/15/17 00:52 Resuscitation Status: Active [RES] Routine Comment: Resuscitation Status: Full Code 08/18/17 11:42 CODE [Resuscitation Status: Active] [RES] Routine Comment: Resuscitation Status: DNR-Comfort Care-Arrest - Labs CBC & Chem 7: 08/28/17 03:12 08/28/17 03:12 Labs: Laboratory Results - last 24 hr 08/24/17 08/27/17 08/27/17 08:51 11:19 17:12 WBC RBC Hgb Hct MCV MCH MCHC RDW Plt Count MPV Immature Gran % Seg Neutrophils % Lymphocytes % Monocytes % Eosinophils % Basophils % Neutrophils # Lymphocytes # Monocytes # Eosinophils # Basophils # Haptoglobin 87 Sodium Potassium Chloride Carbon Dioxide BUN Creatinine Est GFR ( Amer) Est GFR (Non-Af Amer) BUN/Creatinine Ratio Glucose POC Glucose 163 H 112 H Calculated Osmolality Calcium Total Bilirubin Direct Bilirubin Indirect Bilirubin AST ALT Alkaline Phosphatase Serum Total Protein Albumin Globulin Albumin/Globulin Ratio 08/27/17 08/27/17 08/28/17 19:18 23:11 03:12 WBC 9.2 RBC 2.90 L Hgb 8.7 L Hct 26.7 L MCV 92.1 MCH 30.0 MCHC 32.6 RDW 15.8 H Plt Count 176 MPV 11.7 Immature Gran % 0.3 Seg Neutrophils % 80.4 Lymphocytes % 9.0 Monocytes % 8.6 Eosinophils % 1.5 Basophils % 0.2 Neutrophils # 7.4 Lymphocytes # 0.8 Monocytes # 0.8 Eosinophils # 0.1 Basophils # 0.0 Haptoglobin Sodium Potassium Chloride Carbon Dioxide BUN Creatinine Est GFR ( Amer) Est GFR (Non-Af Amer) BUN/Creatinine Ratio Glucose POC Glucose 117 H 116 H Calculated Osmolality Calcium Total Bilirubin Direct Bilirubin Indirect Bilirubin AST ALT Alkaline Phosphatase Serum Total Protein Albumin Globulin Albumin/Globulin Ratio 08/28/17 08/28/17 03:12 07:21 WBC RBC Hgb Hct MCV MCH MCHC RDW Plt Count MPV Immature Gran % Seg Neutrophils % Lymphocytes % Monocytes % Eosinophils % Basophils % Neutrophils # Lymphocytes # Monocytes # Eosinophils # Basophils # Haptoglobin Sodium 148 H Potassium 3.4 L Chloride 109 Carbon Dioxide 28 BUN 82 H Creatinine 2.99 H Est GFR ( Amer) 25 L Est GFR (Non-Af Amer) 21 L BUN/Creatinine Ratio 27 H Glucose 117 H POC Glucose 116 H Calculated Osmolality 332 H Calcium 8.0 L Total Bilirubin 0.6 Direct Bilirubin 0.4 Indirect Bilirubin 0.2 AST 12 ALT 14 Alkaline Phosphatase 97 Serum Total Protein 5.2 L Albumin 2.1 L Globulin 3.1 Albumin/Globulin Ratio 0.7 L - ABG Interpretation ABG results: ABG ABG pH 7.45 pH Units (7.32-7.45) 08/27/17 05:25 ABG pCO2 42 mmHg (35-45) 08/27/17 05:25 ABG pO2 90 mmHg (85-104) 08/27/17 05:25 ABG O2 Saturation 97 % (95-98) 08/27/17 05:25 PT/INR, D-dimer PT 13.7 Seconds (9.4-12.1) H 08/27/17 03:10 Consult Discharge Plan - Plan Referrals: Poncho Noriega MD [Primary Care Provider] - <Juwan Hennessy - Last Filed: 08/28/17 09:14> Date of Encounter: 08/28/17 - Time Spent With Patient Total time spent is greater than 50% in coordination of care (as documented) at patient's floor/unit and/or counseling patient: - Constitutional Vitals: Abnormal lab results RBC 2.90 M/mcL (4.19-5.50) L 08/28/17 03:12 Hgb 8.7 g/dL (12.9-16.9) L 08/28/17 03:12 Hct 26.7 % (37.5-50.1) L 08/28/17 03:12 RDW 15.8 % (11.5-14.5) H 08/28/17 03:12 Nucleated RBCs/100 WBC 0.1 /100 WBC (0) H 08/23/17 04:30 Platelet Estimate Decreased (Normal) L 08/20/17 04:45 Immature Plt Fraction 10.3 % (1.1-6.1) H 08/24/17 07:55 ESR 28 mm/hr (0-10) H 08/23/17 21:20 PT 13.7 Seconds (9.4-12.1) H 08/27/17 03:10 ABG HCO3 29 mEq/L (21-27) H 08/27/17 05:25 ABG Total CO2 30 mEq/L (20-26) H 08/27/17 05:25 ABG Base Excess 5 mEq/L (-2 to 3) H 08/27/17 05:25 Sodium 148 mEq/L (136-145) H 08/28/17 03:12 Potassium 3.4 mEq/L (3.5-4.5) L 08/28/17 03:12 BUN 82 mg/dL (8-26) H 08/28/17 03:12 Creatinine 2.99 mg/dL (0.72-1.25) H 08/28/17 03:12 Est GFR ( Amer) 25 (> 60) L 08/28/17 03:12 Est GFR (Non-Af Amer) 21 (> 60) L 08/28/17 03:12 BUN/Creatinine Ratio 27 (6-26) H 08/28/17 03:12 Glucose 117 mg/dL (70-99) H 08/28/17 03:12 POC Glucose 116 (58-89) H 08/28/17 07:21 Hemoglobin A1c 7.4 % (-5.6) H 08/15/17 05:02 Calculated Osmolality 332 (280-300) H 08/28/17 03:12 Calcium 8.0 mg/dL (8.6-10.8) L 08/28/17 03:12 Ionized Calcium 1.12 mmol/L (1.15-1.35) L 08/26/17 10:40 Lactate Dehydrogenase 149 Units/L (159-327) L 08/24/17 08:51 Troponin I 1.08 ng/mL (0-0.03) H* 08/15/17 12:00 C-Reactive Protein 86 mg/L (Less than 5) H 08/23/17 13:48 Serum Total Protein 5.2 g/dL (6.0-8.3) L 08/28/17 03:12 Albumin 2.1 g/dL (3.5-5.0) L 08/28/17 03:12 Albumin/Globulin Ratio 0.7 (1.1-2.2) L 08/28/17 03:12 Urine Clarity Turbid (Clear) A 08/14/17 20:57 Urine Protein >=300 mg/dL (Neg-Trace) H 08/14/17 20:57 Urine Ketones Trace mg/dL (Negative) H 08/14/17 20:57 Urine Blood Large (Negative) H 08/14/17 20:57 Ur Leukocyte Esterase Large (Negative) H 08/14/17 20:57 Urine Microscopic RBC TNTC per hpf (0-3) H 08/14/17 20:57 Urine Microscopic WBC TNTC per hpf (0-3) H 08/14/17 20:57 Urine Yeast Few per hpf (None Seen) H 08/14/17 20:57 Ur Culture Indicated? YES (NO) A 08/14/17 20:57 Stool Occult Blood Positive (Negative) A 08/23/17 22:25 Vancomycin Trough 39.8 mcg/mL (10-20) H* 08/16/17 21:05 - Attending Attestation I examined this patient and my medical decision-making was reviewed with the Resident Physician. I agree with the documented findings, disposition and treatment plan as described except to the extent set forth below. Palliative Quality Code Status: 08/15/17 00:52 Resuscitation Status: Active [RES] Routine Comment: Resuscitation Status: Full Code 08/18/17 11:42 CODE [Resuscitation Status: Active] [RES] Routine Comment: Resuscitation Status: DNR-Comfort Care-Arrest - Labs CBC & Chem 7: 08/28/17 03:12 08/28/17 03:12 Labs: Laboratory Results - last 24 hr 08/24/17 08/27/17 08/27/17 08:51 11:19 17:12 WBC RBC Hgb Hct MCV MCH MCHC RDW Plt Count MPV Immature Gran % Seg Neutrophils % Lymphocytes % Monocytes % Eosinophils % Basophils % Neutrophils # Lymphocytes # Monocytes # Eosinophils # Basophils # Haptoglobin 87 Sodium Potassium Chloride Carbon Dioxide BUN Creatinine Est GFR ( Amer) Est GFR (Non-Af Amer) BUN/Creatinine Ratio Glucose POC Glucose 163 H 112 H Calculated Osmolality Calcium Total Bilirubin Direct Bilirubin Indirect Bilirubin AST ALT Alkaline Phosphatase Serum Total Protein Albumin Globulin Albumin/Globulin Ratio 08/27/17 08/27/17 08/28/17 19:18 23:11 03:12 WBC 9.2 RBC 2.90 L Hgb 8.7 L Hct 26.7 L MCV 92.1 MCH 30.0 MCHC 32.6 RDW 15.8 H Plt Count 176 MPV 11.7 Immature Gran % 0.3 Seg Neutrophils % 80.4 Lymphocytes % 9.0 Monocytes % 8.6 Eosinophils % 1.5 Basophils % 0.2 Neutrophils # 7.4 Lymphocytes # 0.8 Monocytes # 0.8 Eosinophils # 0.1 Basophils # 0.0 Haptoglobin Sodium Potassium Chloride Carbon Dioxide BUN Creatinine Est GFR ( Amer) Est GFR (Non-Af Amer) BUN/Creatinine Ratio Glucose POC Glucose 117 H 116 H Calculated Osmolality Calcium Total Bilirubin Direct Bilirubin Indirect Bilirubin AST ALT Alkaline Phosphatase Serum Total Protein Albumin Globulin Albumin/Globulin Ratio 08/28/17 08/28/17 03:12 07:21 WBC RBC Hgb Hct MCV MCH MCHC RDW Plt Count MPV Immature Gran % Seg Neutrophils % Lymphocytes % Monocytes % Eosinophils % Basophils % Neutrophils # Lymphocytes # Monocytes # Eosinophils # Basophils # Haptoglobin Sodium 148 H Potassium 3.4 L Chloride 109 Carbon Dioxide 28 BUN 82 H Creatinine 2.99 H Est GFR ( Amer) 25 L Est GFR (Non-Af Amer) 21 L BUN/Creatinine Ratio 27 H Glucose 117 H POC Glucose 116 H Calculated Osmolality 332 H Calcium 8.0 L Total Bilirubin 0.6 Direct Bilirubin 0.4 Indirect Bilirubin 0.2 AST 12 ALT 14 Alkaline Phosphatase 97 Serum Total Protein 5.2 L Albumin 2.1 L Globulin 3.1 Albumin/Globulin Ratio 0.7 L - ABG Interpretation ABG results: ABG ABG pH 7.45 pH Units (7.32-7.45) 08/27/17 05:25 ABG pCO2 42 mmHg (35-45) 08/27/17 05:25 ABG pO2 90 mmHg (85-104) 08/27/17 05:25 ABG O2 Saturation 97 % (95-98) 08/27/17 05:25 PT/INR, D-dimer PT 13.7 Seconds (9.4-12.1) H 08/27/17 03:10
[2017-08-28] MEDS: Pantoprazole 40 MG VIAL IVP SCH (09:12)
[2017-08-28] MEDS: Piperacillin/Tazobactam 3.375 GM in D5% in Water 50 ML IVPB SCH ×2 (09:12→15:47)
[2017-08-28] MEDS: Budesonide/Formoterol 160/4.5 MDI IH SCH ×2 (09:28→19:41)
[2017-08-28] MEDS: Chlorhexidine Rinse 15 ML MOUTHWASH MM SCH ×2 (11:25→21:32)
--- NOTE | 2017-08-28 13:24 | Infectious Disease Progress No ---
Date of Encounter: 08/28/17 Time of Encounter: 13:21 - Assessment and Plan (1) Cardiac arrest Current Visit: Yes Status: Resolved Status post witnessed cardiac arrest 08/14/17. Etiology unclear. ROSC after CPR and ACLS protocol initiation. (2) Shock Current Visit: Yes Status: Resolved Septic vs. cardiogenic. The patient had cardiac arrest followed by hypotension requiring vasopressors, leukocytosis, and fever. Vasopressors have been weaned off. WBC normalized. Afebrile. BP stable. Management per the ICU team. (3) Osteomyelitis Current Visit: No Status: Acute Location: Left heel. Diagnosed on previous hospitalization. Patient discharged on IV antibiotics, but not sure who was following these in the outpatient setting. MRI of the left foot completed 07/22/17 showed findings consistent with early osteomyelitis vs. reactive osteitis. Podiatry was consulted, but no surgical intervention was done as the ulcer looked good and the patient had improved clinically. According to the discharge summary, the patient was discharged on IV Vancomycin and IV Levaquin. Cultures at that time grew out MRSA and [place]. Clinically, the left heel does look a little worse than when I saw it during his previous admission. There is surrounding erythema and the ulcer appears larger. ESR 28 and 86. Podiatry consulted. Appreciate recommendations. Continue Vancomycin IV. Pharmacy to dose. Goal trough approximately 15. Continue Zosyn 3.375 grams IV Q8H. Duration of treatment depends on the clinical picture, but likely a total of 6 weeks of IV antibiotics. Treat through 08/31/17 and if no additional infectious diseases are identified, can discontinue antibiotics. ID service will be unavailable for rounding until next Saturday, but will be available by phone to discuss established patients if needed. Please call with questions or new needs regarding this patient. Qualifiers: Osteomyelitis type: other acute Osteomyelitis location: foot Laterality: left Qualified Code(s): M86.172 - Other acute osteomyelitis, left ankle and foot (4) Abnormal CT scan, chest Current Visit: Yes Status: Acute CT scan of the chest showed multiple fractured ribs, small to moderate bilateral pleural effusions, and pulmonary consolidative changed and multifocal infoltrates bilaterally suggestive of PNA. Repeat CXR 08/22/17 shows persistent bilateral pleural effusions and patchy airspace opacities, mildly improved compared to the CT of the chest. Will continue antibiotics as above for now for OM, which will also cover for pneumonia. (5) Acute kidney injury Current Visit: Yes Status: Acute Likely multifactorial: shock + cardiac arrest + hypotension + nephrotoxic medications. Stable. Nephrology consulted and following. Continue to trend. Dose-adjust antibiotics. Avoid nephrotoxins as able. (6) Elevated troponin Current Visit: No Status: Resolved Likely secondary to cardiac arrest. Cardiology consulted and signed off. (7) Acute respiratory failure Current Visit: Yes Status: Acute Secondary to cardiac arrest, persistent due to acute encephalopathy. Improved. Extubated this morning. Currently on BIPAP. Management per the ICU team. Qualifiers: Respiratory failure complication: hypoxia Qualified Code(s): J96.01 - Acute respiratory failure with hypoxia (8) Encephalopathy Current Visit: Yes Status: Acute Appears improved. Awake and follows commands. CT head negative for acute findings x 2. EEG negative. (9) Pressure ulcer of left heel, unstageable Current Visit: No Status: Acute Previously diagnosed with OM of the left heel. Podiatry consulted. No surgical intervention at this time. Inflammatory markers are improved. Continue wound care and offloading. 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 Markedly improved since I saw the ulcers during his last hospital stay. Continue wound care. (11) Broken ribs Current Visit: Yes Status: Acute Secondary to CPR. Pain management per the primary team. Qualifiers: Encounter type: initial encounter Rib fracture type: multiple ribs Fracture type: closed Laterality: bilateral Qualified Code(s): S22.43XA - Multiple fractures of ribs, bilateral, initial encounter for closed fracture (12) Fluid overload Current Visit: Yes Status: Acute Management per the ICU and nephrology teams. Improved. Qualifiers: Hypervolemia type: other Qualified Code(s): E87.79 - Other fluid overload (13) CHF (congestive heart failure) Current Visit: Yes Status: Chronic Qualifiers: Congestive heart failure type: unspecified congestive heart failure type Congestive heart failure chronicity: acute Qualified Code(s): I50.9 - Heart failure, unspecified (14) CAD (coronary artery disease) Current Visit: Yes Status: Chronic Qualifiers: Coronary Disease-Associated Artery/Lesion type: [place] artery [place] vs. transplanted heart: [place] heart Associated angina: without angina Qualified Code(s): I25.10 - Atherosclerotic heart disease of [place] coronary artery without angina pectoris (15) Pleural effusion Current Visit: Yes Status: Acute Location: Bilateral. Likely secondary to fluid volume overload. Management per the pulmonary team. (16) GI bleed Current Visit: Yes Status: Resolved UGI bleed over the weekend. Status post EGD by Dr. Norton. No active bleeding noted on exam. Qualifiers: GI bleed type/associated pathology: melena Qualified Code(s): K92.1 - Melena - Subjective Interval history: Patient seen and examined. No acute events noted overnight. Extubated this morning. Currently on BIPAP. Awakens to verbal stimuli. Follows commands. Denies pain. Infect Dis PN-Objective Data - Labs CBC & Chem 7: 08/28/17 03:12 08/28/17 03:12 Labs: Laboratory Results - last 24 hr 08/27/17 08/27/17 08/27/17 17:12 19:18 23:11 WBC RBC Hgb Hct MCV MCH MCHC RDW Plt Count MPV Immature Gran % Seg Neutrophils % Lymphocytes % Monocytes % Eosinophils % Basophils % Neutrophils # Lymphocytes # Monocytes # Eosinophils # Basophils # Sodium Potassium Chloride Carbon Dioxide BUN Creatinine Est GFR ( Amer) Est GFR (Non-Af Amer) BUN/Creatinine Ratio Glucose POC Glucose 112 H 117 H 116 H Calculated Osmolality Calcium Total Bilirubin Direct Bilirubin Indirect Bilirubin AST ALT Alkaline Phosphatase Serum Total Protein Albumin Globulin Albumin/Globulin Ratio 08/28/17 08/28/17 08/28/17 03:12 03:12 07:21 WBC 9.2 RBC 2.90 L Hgb 8.7 L Hct 26.7 L MCV 92.1 MCH 30.0 MCHC 32.6 RDW 15.8 H Plt Count 176 MPV 11.7 Immature Gran % 0.3 Seg Neutrophils % 80.4 Lymphocytes % 9.0 Monocytes % 8.6 Eosinophils % 1.5 Basophils % 0.2 Neutrophils # 7.4 Lymphocytes # 0.8 Monocytes # 0.8 Eosinophils # 0.1 Basophils # 0.0 Sodium 148 H Potassium 3.4 L Chloride 109 Carbon Dioxide 28 BUN 82 H Creatinine 2.99 H Est GFR ( Amer) 25 L Est GFR (Non-Af Amer) 21 L BUN/Creatinine Ratio 27 H Glucose 117 H POC Glucose 116 H Calculated Osmolality 332 H Calcium 8.0 L Total Bilirubin 0.6 Direct Bilirubin 0.4 Indirect Bilirubin 0.2 AST 12 ALT 14 Alkaline Phosphatase 97 Serum Total Protein 5.2 L Albumin 2.1 L Globulin 3.1 Albumin/Globulin Ratio 0.7 L 08/28/17 11:43 WBC RBC Hgb Hct MCV MCH MCHC RDW Plt Count MPV Immature Gran % Seg Neutrophils % Lymphocytes % Monocytes % Eosinophils % Basophils % Neutrophils # Lymphocytes # Monocytes # Eosinophils # Basophils # Sodium Potassium Chloride Carbon Dioxide BUN Creatinine Est GFR ( Amer) Est GFR (Non-Af Amer) BUN/Creatinine Ratio Glucose POC Glucose 136 H Calculated Osmolality Calcium Total Bilirubin Direct Bilirubin Indirect Bilirubin AST ALT Alkaline Phosphatase Serum Total Protein Albumin Globulin Albumin/Globulin Ratio Cultures: Cultures 08/15/17 01:15 Blood Culture - Final Peripheral Venipuncture No growth. 08/14/17 22:34 Blood Culture - Final Peripheral Venipuncture No growth. 08/17/17 03:51 Sputum Culture - Final Sputum Serology 08/23/17 Range/Units 22:25 Stool Occult Blood Positive A (Negative) Exam - Constitutional Vitals: Temp Pulse Resp BP Pulse Ox 97.6 F 80 24 176/84 98 08/28/17 12:09 08/28/17 13:00 08/28/17 13:00 08/28/17 13:00 08/28/17 13:00 General appearance: average body habitus, cooperative, no acute distress - Head Head exam: Present: atraumatic, normal inspection, normocephalic - Eye Eye exam: Present: EOMI, normal appearance, PERRL Pupils: Present: normal accommodation - ENT ENT exam: Present: mucous membranes moist - Neck Neck exam: Present: normal inspection - Respiratory Respiratory exam: Present: rhonchi (Scattered throughout). Absent: rales, respiratory distress, tachypnea - Cardiovascular Cardiovascular exam: Present: RRR, +S1, +S2 - GI/Abdominal GI/Abdominal exam: Present: normal bowel sounds, soft. Absent: distended, tenderness Additional comments: Hernandez catheter draining clear yellow urine. Rectal tube with dark green liquid drainage. - Extremities Exam Extremities exam: Present: pedal edema (2+ BLE). Absent: joint swelling, tenderness Additional comments: Bilateral foot dressings C/d/I. - Neurological Exam Neurological exam: Present: alert, oriented X3, no focal deficits - Psychiatric Additional comments: Drowsy, but awakens to verbal stimuli. - Skin Skin exam: Present: dry, intact, normal color, warm - VTE Documentation of Mechanical Device: Intermittent pneumatic compression device Consult Discharge Plan - Plan Referrals: Poncho Noriega MD [Primary Care Provider] -
[2017-08-28] MEDS ORDERED: Ipratropium/Albuterol Neb 3 ML IH PRN (17:14)
[2017-08-28 19:02] LABS: ABG Base Excess 4 mEq/L (-2 to 3); ABG HCO3 29 mEq/L (21-27); ABG Oxygen Saturation 85 % (95-98); ABG PCO2 45 mmHg (35-45); ABG PH 7.43 pH Units (7.32-7.45); ABG PO2 49 mmHg (85-104); ABG TCO2 31 mEq/L (20-26); Blood Gas Modality BiLevel; Blood Gas PEEP 6 cm H2O
[2017-08-29] MEDS: Insulin LISPRO 300 UNITS/3 ML VIAL SQ SCH ×7 (00:01→23:42)
[2017-08-29] MEDS: Piperacillin/Tazobactam 3.375 GM in D5% in Water 50 ML IVPB SCH ×4 (00:38→23:39)
[2017-08-29 04:55] LABS: Calcium 8.1 mg/dL (8.6-10.8); Magnesium 1.5 mg/dL (1.6-2.6); Phosphorous 3.7 mg/dL (2.3-4.7); Potassium 3.3 mEq/L (3.5-4.5)
[2017-08-29 04:56] LABS: Ionized Calcium 1.08 mmol/L (1.15-1.35)
[2017-08-29] MEDS: Potassium Chloride 40 MEQ/200 ML BAG IVPB PRN (06:50)
[2017-08-29] MEDS: *HR* Heparin 5,000 UNIT/ML VIAL SQ SCH ×3 (06:51→21:35)
[2017-08-29] MEDS ORDERED: Furosemide 40 MG/4 ML VIAL IVP ONE (07:30)
[2017-08-29] MEDS: Aspirin 325 MG TABLET PO SCH (07:55)
[2017-08-29] MEDS: amLODIPine 5 MG TABLET PO SCH (07:56)
[2017-08-29] MEDS: Chlorhexidine Rinse 15 ML MOUTHWASH MM SCH (07:56)
[2017-08-29] MEDS: Pantoprazole 40 MG VIAL IVP SCH (08:09)
--- NOTE | 2017-08-29 08:35 | Pulmonology Progress Note ---
<Robert Rodriguez W - Last Filed: 08/29/17 10:31> Date of Encounter: 08/29/17 Assessment and Plan (1) Cardiac arrest Current Visit: Yes Status: Resolved (2) Diabetic ulcer of both feet Current Visit: Yes Status: Chronic (3) Diabetes Current Visit: Yes Status: Chronic 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 mellitus fci insulin use: without fci use Qualified Code( s): E11.621 - Type 2 diabetes mellitus with foot ulcer; L97.509 - Non-pressure chronic ulcer of other part of unspecified foot with unspecified severity; L97.509 - Non-pressure chronic ulcer of other part of unspecified foot with unspecified severity; L97.509 - Non-pressure chronic ulcer of other part of unspecified foot with unspecified severity; L97.509 - Non-pressure chronic ulcer of other part of unspecified foot with unspecified severity (4) DVT prophylaxis Current Visit: Yes Status: Acute (5) CAD (coronary artery disease) Current Visit: Yes Status: Chronic Qualifiers: Coronary Disease-Associated Artery/Lesion type: [place] artery [place] vs. transplanted heart: [place] heart Associated angina: without angina Qualified Code(s): I25.10 - Atherosclerotic heart disease of [place] coronary artery without angina pectoris (6) Acute respiratory failure Current Visit: Yes Status: Acute Qualifiers: Respiratory failure complication: hypoxia Qualified Code(s): J96.01 - Acute respiratory failure with hypoxia (7) Septic shock Current Visit: Yes Status: Resolved (8) Goals of care, counseling/discussion Current Visit: Yes Status: Acute (9) Encephalopathy Current Visit: Yes Status: Acute (10) Seizure Current Visit: Yes Status: Acute Objective PUL Vital signs: Last Vital Signs Temp 97.7 F 08/29/17 08:09 Pulse 84 08/29/17 06:00 Resp 22 08/29/17 06:00 BP 156/62 08/29/17 06:00 Pulse Ox 95 08/29/17 06:00 Results - Laboratory Findings CBC and BMP: 08/29/17 08:45 08/29/17 04:36 ABG ABG pH 7.43 pH Units (7.32-7.45) 08/28/17 18:56 ABG pCO2 45 mmHg (35-45) 08/28/17 18:56 ABG pO2 49 mmHg (85-104) L* 08/28/17 18:56 ABG O2 Saturation 85 % (95-98) L 08/28/17 18:56 PT/INR, D-dimer PT 13.7 Seconds (9.4-12.1) H 08/27/17 03:10 Abnormal lab findings: Abnormal lab results RBC 2.90 M/mcL (4.19-5.50) L 08/28/17 03:12 Hgb 8.7 g/dL (12.9-16.9) L 08/28/17 03:12 Hct 26.7 % (37.5-50.1) L 08/28/17 03:12 RDW 15.8 % (11.5-14.5) H 08/28/17 03:12 Nucleated RBCs/100 WBC 0.1 /100 WBC (0) H 08/23/17 04:30 Platelet Estimate Decreased (Normal) L 08/20/17 04:45 Immature Plt Fraction 10.3 % (1.1-6.1) H 08/24/17 07:55 ESR 28 mm/hr (0-10) H 08/23/17 21:20 PT 13.7 Seconds (9.4-12.1) H 08/27/17 03:10 ABG pO2 49 mmHg (85-104) L* 08/28/17 18:56 ABG HCO3 29 mEq/L (21-27) H 08/28/17 18:56 ABG Total CO2 31 mEq/L (20-26) H 08/28/17 18:56 ABG O2 Saturation 85 % (95-98) L 08/28/17 18:56 ABG Base Excess 4 mEq/L (-2 to 3) H 08/28/17 18:56 Sodium 150 mEq/L (136-145) H 08/29/17 04:36 Potassium 3.3 mEq/L (3.5-4.5) L 08/29/17 04:36 Chloride 110 mEq/L (98-109) H 08/29/17 04:36 BUN 76 mg/dL (8-26) H 08/29/17 04:36 Creatinine 2.83 mg/dL (0.72-1.25) H 08/29/17 04:36 Est GFR ( Amer) 27 (> 60) L 08/29/17 04:36 Est GFR (Non-Af Amer) 22 (> 60) L 08/29/17 04:36 BUN/Creatinine Ratio 27 (6-26) H 08/29/17 04:36 Glucose 116 mg/dL (70-99) H 08/29/17 04:36 POC Glucose 117 (58-89) H 08/29/17 07:32 Hemoglobin A1c 7.4 % (-5.6) H 08/15/17 05:02 Calculated Osmolality 334 (280-300) H 08/29/17 04:36 Calcium 8.1 mg/dL (8.6-10.8) L 08/29/17 04:36 Ionized Calcium 1.08 mmol/L (1.15-1.35) L 08/29/17 04:36 Magnesium 1.5 mg/dL (1.6-2.6) L 08/29/17 04:36 Lactate Dehydrogenase 149 Units/L (159-327) L 08/24/17 08:51 Troponin I 1.08 ng/mL (0-0.03) H* 08/15/17 12:00 C-Reactive Protein 86 mg/L (Less than 5) H 08/23/17 13:48 Serum Total Protein 5.2 g/dL (6.0-8.3) L 08/28/17 03:12 Albumin 2.1 g/dL (3.5-5.0) L 08/28/17 03:12 Albumin/Globulin Ratio 0.7 (1.1-2.2) L 08/28/17 03:12 Urine Clarity Turbid (Clear) A 08/14/17 20:57 Urine Protein >=300 mg/dL (Neg-Trace) H 08/14/17 20:57 Urine Ketones Trace mg/dL (Negative) H 08/14/17 20:57 Urine Blood Large (Negative) H 08/14/17 20:57 Ur Leukocyte Esterase Large (Negative) H 08/14/17 20:57 Urine Microscopic RBC TNTC per hpf (0-3) H 08/14/17 20:57 Urine Microscopic WBC TNTC per hpf (0-3) H 08/14/17 20:57 Urine Yeast Few per hpf (None Seen) H 08/14/17 20:57 Ur Culture Indicated? YES (NO) A 08/14/17 20:57 Stool Occult Blood Positive (Negative) A 08/23/17 22:25 Vancomycin Trough 39.8 mcg/mL (10-20) H* 08/16/17 21:05 - Clinical Findings Intake & Output: Intake & Output 08/28/17 08/29/17 08/29/17 23:59 07:59 15:59 Intake Total 50 / 50 50 / 50 Output Total 1200 / 1200 550 / 550 400 / 400 Balance -1150 / -1150 -500 / -500 -400 / -400 Weight 89.51 kg Consult Discharge Plan - Plan Referrals: Poncho Noriega MD [Primary Care Provider] - - Attending Attestation I examined this patient and my medical decision-making was reviewed with the Resident Physician. I agree with the documented findings, disposition and treatment plan as described except to the extent set forth below. We independently had [id number] contact with the patient Patient seen and examined at bedside Labs, radiology, chart personally reviewed. Management was reviewed during multidisciplinary critical care rounds. CRAFT RECRUITER: Remains delirious without focal deficit. avoid CRAFT RECRUITER depressants and sensory deprivation. Pulm:Liberated from vent yesterday. Respiratory status remains tenuous cont NIV for support Cards: s/p Cardiac Arrest. Pulmonary edema cont diuresis. Aggressive BP control FEN-GI: NPO for now. Renal: YUMIKO on CKD good UOP cont to monitor Lytes. Mild Hypernatremia. cont to monitor may need D5W ID: Cont Abx for Osteo/DM foot ulcers. ID following Heme/Onc: DVT prophylaxis give Endo: Glucose Monitored Integ/MSK: Skin Care per routine ICU Nursing Protocol to prevent ulcers. Lines: All lines examined without evidence of infection : Dispo: stable for transfer to [facility]. CODE: DNAR/DNI per patient and sons request. <Yohana Ocasio - Last Filed: 08/29/17 15:27> Date of Encounter: 08/29/17 Time of Encounter: 07:35 Assessment and Plan (1) Acute respiratory failure Current Visit: Yes Status: Acute -liberated from vent 08/28/17 -continue BiPAP, saturating well SpO2 95% -per palliative team--pt doesn't want reintubation, tracheostomy, PEG tube. Code status is [id number] -monitor closely Qualifiers: Respiratory failure complication: hypoxia Qualified Code(s): J96.01 - Acute respiratory failure with hypoxia (2) Cardiac arrest Current Visit: Yes Status: Acute -hemodynamically stable, continue medical management -08/29/17 CXR showing--complete Lt hemithorax consolidation (more likely effusion with atelectasis than PNA) -furosemide 40mg IV BID to mobilize fluid -monitor on tele (3) Septic shock Current Visit: Yes Status: Resolved -shock resolved, afebrile, pulse WNL, BP stable -possibly d/t aspiration PNA, complicated by b/l diabetic foot ulcers already being treated with IV abx (4) Acute kidney injury Current Visit: Yes Status: Acute -improved urine output over last 24 hr -Cr remains elevated, but appears to be relatively stable -anticipating improvement of kidney function with continued diuresis-- furosemide 40mg IVP BID -continue to monitor electrolytes with AM labs -nephrology consulted; no indications for dialysis at this time (5) Diabetic ulcer of both feet Current Visit: Yes Status: Chronic -will continue treatment with IV abx (pharmacy dosing Vancomycin) until then d/c abx (unless additional infectious disease identified), as per ID -continue wound care -podiatry following at a distance -ID following (6) CAD (coronary artery disease) Current Visit: Yes Status: Chronic -continue medical management -hemodynamically stable -continue tele monitoring Qualifiers: Coronary Disease-Associated Artery/Lesion type: [place] artery [place] vs. transplanted heart: [place] heart Associated angina: without angina Qualified Code(s): I25.10 - Atherosclerotic heart disease of [place] coronary artery without angina pectoris (7) Diabetes Current Visit: Yes Status: Chronic -SSI (Lispro) for glucose control -continue to monitor glucose and adjust insulin as needed 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 mellitus fci insulin use: without fci use Qualified Code( s): E11.621 - Type 2 diabetes mellitus with foot ulcer; L97.509 - Non-pressure chronic ulcer of other part of unspecified foot with unspecified severity; L97.509 - Non-pressure chronic ulcer of other part of unspecified foot with unspecified severity; L97.509 - Non-pressure chronic ulcer of other part of unspecified foot with unspecified severity; L97.509 - Non-pressure chronic ulcer of other part of unspecified foot with unspecified severity (8) Encephalopathy Current Visit: Yes Status: Acute -arousable, doesn't consistently follow commands -head CT stable, no acute intracranial abnormalities -avoid CRAFT RECRUITER depressants to prevent worsening delirium (9) Acute GI bleeding Current Visit: Yes Status: Acute -resolved, H/H stable -no active bleeding (10) DVT prophylaxis Current Visit: Yes Status: Acute -heparin 5000 units SubQ Subjective Principal diagnosis: Cardiac Arrest Interval history: Seen and examined at bedside. Pt remains on BiPAP. Arousable, but doesn't consistently cooperate/fully answer questions. Per RN, pt will write to communicate. Objective PUL Vital signs: Last Vital Signs Temp 97.7 F 08/29/17 08:09 Pulse 84 08/29/17 06:00 Resp 22 08/29/17 06:00 BP 156/62 08/29/17 06:00 Pulse Ox 95 08/29/17 06:00 General appearance: no acute distress Eyes: nonicteric Neck: supple Effort: normal Auscultation: bilateral: clear Cardiovascular: regular rate and rhythm Gastrointestinal: normoactive bowel sounds, soft, non-tender, non-distended Integumentary: normal Extremities: no cyanosis, edema unable to assess due to mental status Results - Laboratory Findings CBC and BMP: 08/29/17 08:45 08/29/17 04:36 ABG ABG pH 7.43 pH Units (7.32-7.45) 08/28/17 18:56 ABG pCO2 45 mmHg (35-45) 08/28/17 18:56 ABG pO2 49 mmHg (85-104) L* 08/28/17 18:56 ABG O2 Saturation 85 % (95-98) L 08/28/17 18:56 PT/INR, D-dimer PT 13.7 Seconds (9.4-12.1) H 08/27/17 03:10 Abnormal lab findings: Abnormal lab results RBC 2.90 M/mcL (4.19-5.50) L 08/28/17 03:12 Hgb 8.7 g/dL (12.9-16.9) L 08/28/17 03:12 Hct 26.7 % (37.5-50.1) L 08/28/17 03:12 RDW 15.8 % (11.5-14.5) H 08/28/17 03:12 Nucleated RBCs/100 WBC 0.1 /100 WBC (0) H 08/23/17 04:30 Platelet Estimate Decreased (Normal) L 08/20/17 04:45 Immature Plt Fraction 10.3 % (1.1-6.1) H 08/24/17 07:55 ESR 28 mm/hr (0-10) H 08/23/17 21:20 PT 13.7 Seconds (9.4-12.1) H 08/27/17 03:10 ABG pO2 49 mmHg (85-104) L* 08/28/17 18:56 ABG HCO3 29 mEq/L (21-27) H 08/28/17 18:56 ABG Total CO2 31 mEq/L (20-26) H 08/28/17 18:56 ABG O2 Saturation 85 % (95-98) L 08/28/17 18:56 ABG Base Excess 4 mEq/L (-2 to 3) H 08/28/17 18:56 Sodium 150 mEq/L (136-145) H 08/29/17 04:36 Potassium 3.3 mEq/L (3.5-4.5) L 08/29/17 04:36 Chloride 110 mEq/L (98-109) H 08/29/17 04:36 BUN 76 mg/dL (8-26) H 08/29/17 04:36 Creatinine 2.83 mg/dL (0.72-1.25) H 08/29/17 04:36 Est GFR ( Amer) 27 (> 60) L 08/29/17 04:36 Est GFR (Non-Af Amer) 22 (> 60) L 08/29/17 04:36 BUN/Creatinine Ratio 27 (6-26) H 08/29/17 04:36 Glucose 116 mg/dL (70-99) H 08/29/17 04:36 POC Glucose 117 (58-89) H 08/29/17 07:32 Hemoglobin A1c 7.4 % (-5.6) H 08/15/17 05:02 Calculated Osmolality 334 (280-300) H 08/29/17 04:36 Calcium 8.1 mg/dL (8.6-10.8) L 08/29/17 04:36 Ionized Calcium 1.08 mmol/L (1.15-1.35) L 08/29/17 04:36 Magnesium 1.5 mg/dL (1.6-2.6) L 08/29/17 04:36 Lactate Dehydrogenase 149 Units/L (159-327) L 08/24/17 08:51 Troponin I 1.08 ng/mL (0-0.03) H* 08/15/17 12:00 C-Reactive Protein 86 mg/L (Less than 5) H 08/23/17 13:48 Serum Total Protein 5.2 g/dL (6.0-8.3) L 08/28/17 03:12 Albumin 2.1 g/dL (3.5-5.0) L 08/28/17 03:12 Albumin/Globulin Ratio 0.7 (1.1-2.2) L 08/28/17 03:12 Urine Clarity Turbid (Clear) A 08/14/17 20:57 Urine Protein >=300 mg/dL (Neg-Trace) H 08/14/17 20:57 Urine Ketones Trace mg/dL (Negative) H 08/14/17 20:57 Urine Blood Large (Negative) H 08/14/17 20:57 Ur Leukocyte Esterase Large (Negative) H 08/14/17 20:57 Urine Microscopic RBC TNTC per hpf (0-3) H 08/14/17 20:57 Urine Microscopic WBC TNTC per hpf (0-3) H 08/14/17 20:57 Urine Yeast Few per hpf (None Seen) H 08/14/17 20:57 Ur Culture Indicated? YES (NO) A 08/14/17 20:57 Stool Occult Blood Positive (Negative) A 08/23/17 22:25 Vancomycin Trough 39.8 mcg/mL (10-20) H* 08/16/17 21:05 - Clinical Findings Intake & Output: Intake & Output 08/28/17 08/29/17 08/29/17 23:59 07:59 15:59 Intake Total 50 / 50 50 / 50 Output Total 1200 / 1200 550 / 550 400 / 400 Balance -1150 / -1150 -500 / -500 -400 / -400 Weight 89.51 kg - VTE Documentation of Mechanical Device: Intermittent pneumatic compression device
--- NOTE | 2017-08-29 08:41 | Nephrology Progress Note ---
Date of Encounter: 08/29/17 Time of Encounter: 08:20 - Assessment and Plan (1) Acute kidney injury Current Visit: Yes Status: Acute YUMIKO in setting of cardiac arrest, hypovolemia, Vanc toxicity. Will monitor, no immediate need for dialysis. Avoid nephrotoxins. Documented urine output 3100cc. Renal fct stable, creat 2.83, K 3.3. Will continue to monitor. Subjective Principal diagnosis: Cardiac Arrest Interval history: BiPap, difficult to arouse. Objective - Vital Signs Vital signs: Vital Signs Temp Pulse Resp BP Pulse Ox 08/29/17 08:09 97.7 F 08/29/17 06:00 84 22 156/62 95 08/29/17 05:00 99 22 150/68 95 08/29/17 04:00 75 19 166/65 98 08/29/17 03:58 97.6 F 08/29/17 03:48 22 159/66 98 08/29/17 03:00 76 20 157/66 98 08/29/17 02:00 80 18 156/74 98 08/29/17 01:14 22 145/72 99 08/29/17 01:00 81 19 145/72 97 08/29/17 00:00 80 19 144/74 100 08/28/17 23:55 96.4 F L 08/28/17 23:00 76 18 153/94 99 08/28/17 22:00 75 18 156/74 98 08/28/17 21:00 74 17 152/74 98 08/28/17 20:56 20 151/69 100 08/28/17 20:00 77 20 154/83 98 08/28/17 19:35 96.2 F L 08/28/17 19:00 72 25 152/75 96 08/28/17 18:00 86 25 172/82 96 08/28/17 17:50 25 98 08/28/17 17:00 77 25 152/70 98 08/28/17 16:00 86 16 166/73 98 08/28/17 15:55 97.6 F 08/28/17 15:00 85 16 182/87 98 08/28/17 14:00 77 16 171/96 98 08/28/17 13:00 80 24 176/84 98 08/28/17 12:09 97.6 F 08/28/17 12:00 69 08/28/17 11:00 82 24 164/74 98 08/28/17 10:00 72 28 155/86 98 08/28/17 09:00 68 23 172/75 98 08/28/17 08:46 18 161/87 98 Intake and Output 08/28/17 08/29/17 08/29/17 23:59 07:59 15:59 Intake Total 50 / 50 50 / 50 Output Total 1200 / 1200 550 / 550 400 / 400 Balance -1150 / -1150 -500 / -500 -400 / -400 Intake: IV Fluids 50 / 50 50 / 50 Zosyn 3.375 GM In Dextrose 5% ( 50 / 50 50 / 50 ADD-[place]) 50 ML @ 12.5 mls/ hr IVPB Q8HR [facility] Rx#:[id number] Output: Rectal Tube 0 / 0 0 / 0 0 / 0 Catheter 1200 / 1200 550 / 550 400 / 400 Other: Weight 89.51 kg Blood Glucose* 118 124 117 Patient Weight 08/29/17 23:59 Weight 89.51 kg - General Appearance General appearance: Present: chronically ill EENT: Present: mucous membranes moist Neck: Present: no JVD Respiratory: Present: clear Cardiology: Present: edema, regular rate, regular rhythm Additional Comments: 1-2+ pitting edema LE Gastrointestinal: Present: normoactive bowel sounds Integumentary: Present: warm and dry - Lab 08/28/17 03:12 08/29/17 04:36 Most recent lab results ABG pH 7.43 pH Units (7.32-7.45) 08/28/17 18:56 ABG pCO2 45 mmHg (35-45) 08/28/17 18:56 ABG pO2 49 mmHg (85-104) L* 08/28/17 18:56 ABG HCO3 29 mEq/L (21-27) H 08/28/17 18:56 ABG O2 Saturation 85 % (95-98) L 08/28/17 18:56 Calcium 8.1 mg/dL (8.6-10.8) L 08/29/17 04:36 Phosphorus 3.7 mg/dL (2.3-4.7) 08/29/17 04:36 Magnesium 1.5 mg/dL (1.6-2.6) L 11/16/17 04:36 - VTE Documentation of Mechanical Device: Intermittent pneumatic compression device Consult Discharge Plan - Plan Referrals: Poncho Noriega MD [Primary Care Provider] -
[2017-08-29 08:58] LABS: Basophils % 0.2 %; Eosinophils # 0.1 K/mcL (0.0-0.6); Eosinophils % 0.7 %; Hemoglobin 8.9 g/dL (12.9-16.9); Immature Granulocytes % 0.6 % (0-4); Lymphocytes # 0.6 K/mcL (0.6-4.6); Lymphocytes % 5.7 %; Mean Corpuscular HGB Conc 31.8 g/dL (31.6-35.5); Mean Corpuscular Hemoglobin 29.6 pg (28.0-33.3); Mean Platelet Volume 11.1 fL (9.4-12.4); Monocytes # 0.7 K/mcL (0.0-1.3); Monocytes % 7.1 %; Neutrophils # 8.8 K/mcL (1.6-8.9); Platelet Count 185 K/mcL (140-400); Red Blood Count 3.01 M/mcL (4.19-5.50); Red Cell Distribution Width 15.9 % (11.5-14.5); Segmented Neutrophils % 85.7 %
[2017-08-29] MEDS: Budesonide/Formoterol 160/4.5 MDI IH SCH ×2 (09:37→22:21)
--- NOTE | 2017-08-29 10:07 | Palliative Progress Note ---
<Santos Bird - Last Filed: 08/29/17 10:04> Date of Encounter: 08/29/17 Time of Encounter: 10:04 - Assessment and plan (1) Goals of care, counseling/discussion Current Visit: Yes Status: Acute Assessment and plan: DNRCCDNI Does not want to be reintubated. Does not want tracheostomy or PEG tube. If his respiratory status worsens he would like to be Comfortable. (2) GI bleed Current Visit: Yes Status: Resolved Assessment and plan: resolved. Required total 5 units PBRC Bleeding polyp on EGD which was cauterized hgb stable. Qualifiers: GI bleed type/associated pathology: melena Qualified Code(s): K92.1 - Melena (3) Cardiac arrest Current Visit: Yes Status: Acute Assessment and plan: Witnessed cardiac arrest BP stable plan as per primary DNR/DNI (4) Acute kidney injury Current Visit: Yes Status: Acute Assessment and plan: 2nd to cardiopulmonary arrest, anemia, vacomycin Improving improved urine output nephrology consulted (5) Diabetic ulcer of both feet Current Visit: Yes Status: Chronic Assessment and plan: being treated for MRSA, enterococuss, proteus mirabilis, and klebsiella infection on zosyn andd vancomycin wound care on board. ID on board. (6) Broken ribs Current Visit: Yes Status: Acute Assessment and plan: 2nd to cpr multiple broken ribs patient denies pain with breathing fentanyl prn for pain Qualifiers: Encounter type: initial encounter Rib fracture type: multiple ribs Fracture type: closed Laterality: bilateral Qualified Code(s): S22.43XA - Multiple fractures of ribs, bilateral, initial encounter for closed fracture - Time Spent With Patient Total time spent is greater than 50% in coordination of care (as documented) at patient's floor/unit and/or counseling patient: - Subjective Interval history: Patient on BiPAP. States he is uncomfortable, has difficulty breathing. Does not have any other complaints. Does not want to be reintubated. Does not want tracheostomy. Does not want PEG tube. If his respiratory status disinclined to once to be comfort care. - Constitutional Vitals: Abnormal lab results RBC 3.01 M/mcL (4.19-5.50) L 08/29/17 08:45 Hgb 8.9 g/dL (12.9-16.9) L 08/29/17 08:45 Hct 28.0 % (37.5-50.1) L 08/29/17 08:45 RDW 15.9 % (11.5-14.5) H 08/29/17 08:45 Nucleated RBCs/100 WBC 0.1 /100 WBC (0) H 08/23/17 04:30 Platelet Estimate Decreased (Normal) L 08/20/17 04:45 Immature Plt Fraction 10.3 % (1.1-6.1) H 08/24/17 07:55 ESR 28 mm/hr (0-10) H 08/23/17 21:20 PT 13.7 Seconds (9.4-12.1) H 08/27/17 03:10 ABG pO2 49 mmHg (85-104) L* 08/28/17 18:56 ABG HCO3 29 mEq/L (21-27) H 08/28/17 18:56 ABG Total CO2 31 mEq/L (20-26) H 08/28/17 18:56 ABG O2 Saturation 85 % (95-98) L 08/28/17 18:56 ABG Base Excess 4 mEq/L (-2 to 3) H 08/28/17 18:56 Sodium 150 mEq/L (136-145) H 08/29/17 04:36 Potassium 3.3 mEq/L (3.5-4.5) L 08/29/17 04:36 Chloride 110 mEq/L (98-109) H 08/29/17 04:36 BUN 76 mg/dL (8-26) H 08/29/17 04:36 Creatinine 2.83 mg/dL (0.72-1.25) H 08/29/17 04:36 Est GFR ( Amer) 27 (> 60) L 08/29/17 04:36 Est GFR (Non-Af Amer) 22 (> 60) L 08/29/17 04:36 BUN/Creatinine Ratio 27 (6-26) H 08/29/17 04:36 Glucose 116 mg/dL (70-99) H 08/29/17 04:36 POC Glucose 117 (58-89) H 08/29/17 07:32 Hemoglobin A1c 7.4 % (-5.6) H 08/15/17 05:02 Calculated Osmolality 334 (280-300) H 08/29/17 04:36 Calcium 8.1 mg/dL (8.6-10.8) L 08/29/17 04:36 Ionized Calcium 1.08 mmol/L (1.15-1.35) L 08/29/17 04:36 Magnesium 1.5 mg/dL (1.6-2.6) L 08/29/17 04:36 Lactate Dehydrogenase 149 Units/L (159-327) L 08/24/17 08:51 Troponin I 1.08 ng/mL (0-0.03) H* 08/15/17 12:00 C-Reactive Protein 86 mg/L (Less than 5) H 08/23/17 13:48 Serum Total Protein 5.2 g/dL (6.0-8.3) L 08/28/17 03:12 Albumin 2.1 g/dL (3.5-5.0) L 08/28/17 03:12 Albumin/Globulin Ratio 0.7 (1.1-2.2) L 08/28/17 03:12 Urine Clarity Turbid (Clear) A 08/14/17 20:57 Urine Protein >=300 mg/dL (Neg-Trace) H 08/14/17 20:57 Urine Ketones Trace mg/dL (Negative) H 08/14/17 20:57 Urine Blood Large (Negative) H 08/14/17 20:57 Ur Leukocyte Esterase Large (Negative) H 08/14/17 20:57 Urine Microscopic RBC TNTC per hpf (0-3) H 08/14/17 20:57 Urine Microscopic WBC TNTC per hpf (0-3) H 08/14/17 20:57 Urine Yeast Few per hpf (None Seen) H 08/14/17 20:57 Ur Culture Indicated? YES (NO) A 08/14/17 20:57 Stool Occult Blood Positive (Negative) A 08/23/17 22:25 Vancomycin Trough 39.8 mcg/mL (10-20) H* 08/16/17 21:05 - Additional findings Additional findings: General: Pleasant moderate distress Heart: Regular rate and rhythm with no murmur Lungs: Diminished, clear bilaterally anteriorly Abdomen: Soft nontender, nondistended positive bowel sounds Skin: warm and dry Extremities: 2+ edema lower extremities Vascular: Pedal and radial pulses 2 out of 4 Palliative Quality Palliative Quality: Screen for Code Status: Yes, Screen for Goals of Care: Yes, Screen for Pain: Yes, If Pain Regimen Started, Initiate Bowel Regimen: Yes, Screen for Nausea/Vomitting: No Code Status: 08/15/17 00:52 Resuscitation Status: Active [RES] Routine Comment: Resuscitation Status: Full Code 08/18/17 11:42 CODE [Resuscitation Status: Active] [RES] Routine Comment: Resuscitation Status: DNR-Comfort Care-Arrest CODE [Resuscitation Status: Active] [RES] Routine Comment: Resuscitation Status: [id number] - Labs CBC & Chem 7: 08/29/17 08:45 08/29/17 04:36 Labs: Laboratory Results - last 24 hr 08/28/17 08/28/17 08/28/17 11:43 14:57 18:56 WBC RBC Hgb Hct MCV MCH MCHC RDW Plt Count MPV Immature Gran % Seg Neutrophils % Lymphocytes % Monocytes % Eosinophils % Basophils % Neutrophils # Lymphocytes # Monocytes # Eosinophils # Basophils # ABG pH 7.43 ABG pCO2 45 ABG pO2 49 L* ABG HCO3 29 H ABG Total CO2 31 H ABG O2 Saturation 85 L ABG Base Excess 4 H O2 Delivery Device BiPAP Blood Gas Modality BiLevel Inspired O2 100.0 PEEP 6 Sodium Potassium Chloride Carbon Dioxide BUN Creatinine Est GFR ( Amer) Est GFR (Non-Af Amer) BUN/Creatinine Ratio Glucose POC Glucose 136 H 149 H Calculated Osmolality Calcium Ionized Calcium Phosphorus Magnesium 08/28/17 08/28/17 08/29/17 19:46 23:57 04:00 WBC RBC Hgb Hct MCV MCH MCHC RDW Plt Count MPV Immature Gran % Seg Neutrophils % Lymphocytes % Monocytes % Eosinophils % Basophils % Neutrophils # Lymphocytes # Monocytes # Eosinophils # Basophils # ABG pH ABG pCO2 ABG pO2 ABG HCO3 ABG Total CO2 ABG O2 Saturation ABG Base Excess O2 Delivery Device Blood Gas Modality Inspired O2 PEEP Sodium Potassium Chloride Carbon Dioxide BUN Creatinine Est GFR ( Amer) Est GFR (Non-Af Amer) BUN/Creatinine Ratio Glucose POC Glucose 116 H 118 H 124 H Calculated Osmolality Calcium Ionized Calcium Phosphorus Magnesium 08/29/17 08/29/17 08/29/17 04:36 07:32 08:45 WBC 10.3 RBC 3.01 L Hgb 8.9 L Hct 28.0 L MCV 93.0 MCH 29.6 MCHC 31.8 RDW 15.9 H Plt Count 185 MPV 11.1 Immature Gran % 0.6 Seg Neutrophils % 85.7 Lymphocytes % 5.7 Monocytes % 7.1 Eosinophils % 0.7 Basophils % 0.2 Neutrophils # 8.8 Lymphocytes # 0.6 Monocytes # 0.7 Eosinophils # 0.1 Basophils # 0.0 ABG pH ABG pCO2 ABG pO2 ABG HCO3 ABG Total CO2 ABG O2 Saturation ABG Base Excess O2 Delivery Device Blood Gas Modality Inspired O2 PEEP Sodium 150 H Potassium 3.3 L Chloride 110 H Carbon Dioxide 28 BUN 76 H Creatinine 2.83 H Est GFR ( Amer) 27 L Est GFR (Non-Af Amer) 22 L BUN/Creatinine Ratio 27 H Glucose 116 H POC Glucose 117 H Calculated Osmolality 334 H Calcium 8.1 L Ionized Calcium 1.08 L Phosphorus 3.7 Magnesium 1.5 L - Impressions Impressions Chest X-Ray 08/29/17 07:56 IMPRESSION: 1. Status post extubation. There is complete left hemithorax consolidation consistent with combination of large effusion and atelectasis versus pneumonia. 2. Stable right pleural effusion and pulmonary consolidation. The findings were sent to the Radiology Results Communication Center at 8:46 am on 08/29/2017to be communicated to a licensed caregiver. D/ / 08/29/2017 09:02:29 Mejia Dorsey MD / Anna Fortune Interpreting Provider: Mejia Dorsey MD - ABG Interpretation ABG results: ABG ABG pH 7.43 pH Units (7.32-7.45) 08/28/17 18:56 ABG pCO2 45 mmHg (35-45) 08/28/17 18:56 ABG pO2 49 mmHg (85-104) L* 08/28/17 18:56 ABG O2 Saturation 85 % (95-98) L 08/28/17 18:56 PT/INR, D-dimer PT 13.7 Seconds (9.4-12.1) H 08/27/17 03:10 Consult Discharge Plan - Plan Referrals: Poncho Noriega MD [Primary Care Provider] - <Juwan Hennessy - Last Filed: 08/29/17 11:12> Date of Encounter: 08/29/17 - Time Spent With Patient Total time spent is greater than 50% in coordination of care (as documented) at patient's floor/unit and/or counseling patient: - Constitutional Vitals: Abnormal lab results RBC 3.01 M/mcL (4.19-5.50) L 08/29/17 08:45 Hgb 8.9 g/dL (12.9-16.9) L 08/29/17 08:45 Hct 28.0 % (37.5-50.1) L 08/29/17 08:45 RDW 15.9 % (11.5-14.5) H 08/29/17 08:45 Nucleated RBCs/100 WBC 0.1 /100 WBC (0) H 08/23/17 04:30 Platelet Estimate Decreased (Normal) L 08/20/17 04:45 Immature Plt Fraction 10.3 % (1.1-6.1) H 08/24/17 07:55 ESR 28 mm/hr (0-10) H 08/23/17 21:20 PT 13.7 Seconds (9.4-12.1) H 08/27/17 03:10 ABG pO2 49 mmHg (85-104) L* 08/28/17 18:56 ABG HCO3 29 mEq/L (21-27) H 08/28/17 18:56 ABG Total CO2 31 mEq/L (20-26) H 08/28/17 18:56 ABG O2 Saturation 85 % (95-98) L 08/28/17 18:56 ABG Base Excess 4 mEq/L (-2 to 3) H 08/28/17 18:56 Sodium 150 mEq/L (136-145) H 08/29/17 04:36 Potassium 3.3 mEq/L (3.5-4.5) L 08/29/17 04:36 Chloride 110 mEq/L (98-109) H 08/29/17 04:36 BUN 76 mg/dL (8-26) H 08/29/17 04:36 Creatinine 2.83 mg/dL (0.72-1.25) H 08/29/17 04:36 Est GFR ( Amer) 27 (> 60) L 08/29/17 04:36 Est GFR (Non-Af Amer) 22 (> 60) L 08/29/17 04:36 BUN/Creatinine Ratio 27 (6-26) H 08/29/17 04:36 Glucose 116 mg/dL (70-99) H 08/29/17 04:36 POC Glucose 117 (58-89) H 08/29/17 07:32 Hemoglobin A1c 7.4 % (-5.6) H 08/15/17 05:02 Calculated Osmolality 334 (280-300) H 08/29/17 04:36 Calcium 8.1 mg/dL (8.6-10.8) L 08/29/17 04:36 Ionized Calcium 1.08 mmol/L (1.15-1.35) L 08/29/17 04:36 Magnesium 1.5 mg/dL (1.6-2.6) L 08/29/17 04:36 Lactate Dehydrogenase 149 Units/L (159-327) L 08/24/17 08:51 Troponin I 1.08 ng/mL (0-0.03) H* 08/15/17 12:00 C-Reactive Protein 86 mg/L (Less than 5) H 08/23/17 13:48 Serum Total Protein 5.2 g/dL (6.0-8.3) L 08/28/17 03:12 Albumin 2.1 g/dL (3.5-5.0) L 08/28/17 03:12 Albumin/Globulin Ratio 0.7 (1.1-2.2) L 08/28/17 03:12 Urine Clarity Turbid (Clear) A 08/14/17 20:57 Urine Protein >=300 mg/dL (Neg-Trace) H 08/14/17 20:57 Urine Ketones Trace mg/dL (Negative) H 08/14/17 20:57 Urine Blood Large (Negative) H 08/14/17 20:57 Ur Leukocyte Esterase Large (Negative) H 08/14/17 20:57 Urine Microscopic RBC TNTC per hpf (0-3) H 08/14/17 20:57 Urine Microscopic WBC TNTC per hpf (0-3) H 08/14/17 20:57 Urine Yeast Few per hpf (None Seen) H 08/14/17 20:57 Ur Culture Indicated? YES (NO) A 08/14/17 20:57 Stool Occult Blood Positive (Negative) A 08/23/17 22:25 Vancomycin Trough 39.8 mcg/mL (10-20) H* 08/16/17 21:05 - Attending Attestation I examined this patient and my medical decision-making was reviewed with the Resident Physician. I agree with the documented findings, disposition and treatment plan as described except to the extent set forth below. Palliative Quality Code Status: 08/15/17 00:52 Resuscitation Status: Active [RES] Routine Comment: Resuscitation Status: Full Code 08/18/17 11:42 CODE [Resuscitation Status: Active] [RES] Routine Comment: Resuscitation Status: DNR-Comfort Care-Arrest CODE [Resuscitation Status: Active] [RES] Routine Comment: Resuscitation Status: [id number] - Labs CBC & Chem 7: 08/29/17 08:45 08/29/17 04:36 Labs: Laboratory Results - last 24 hr 08/28/17 08/28/17 08/28/17 11:43 14:57 18:56 WBC RBC Hgb Hct MCV MCH MCHC RDW Plt Count MPV Immature Gran % Seg Neutrophils % Lymphocytes % Monocytes % Eosinophils % Basophils % Neutrophils # Lymphocytes # Monocytes # Eosinophils # Basophils # ABG pH 7.43 ABG pCO2 45 ABG pO2 49 L* ABG HCO3 29 H ABG Total CO2 31 H ABG O2 Saturation 85 L ABG Base Excess 4 H O2 Delivery Device BiPAP Blood Gas Modality BiLevel Inspired O2 100.0 PEEP 6 Sodium Potassium Chloride Carbon Dioxide BUN Creatinine Est GFR ( Amer) Est GFR (Non-Af Amer) BUN/Creatinine Ratio Glucose POC Glucose 136 H 149 H Calculated Osmolality Calcium Ionized Calcium Phosphorus Magnesium 08/28/17 08/28/17 08/29/17 19:46 23:57 04:00 WBC RBC Hgb Hct MCV MCH MCHC RDW Plt Count MPV Immature Gran % Seg Neutrophils % Lymphocytes % Monocytes % Eosinophils % Basophils % Neutrophils # Lymphocytes # Monocytes # Eosinophils # Basophils # ABG pH ABG pCO2 ABG pO2 ABG HCO3 ABG Total CO2 ABG O2 Saturation ABG Base Excess O2 Delivery Device Blood Gas Modality Inspired O2 PEEP Sodium Potassium Chloride Carbon Dioxide BUN Creatinine Est GFR ( Amer) Est GFR (Non-Af Amer) BUN/Creatinine Ratio Glucose POC Glucose 116 H 118 H 124 H Calculated Osmolality Calcium Ionized Calcium Phosphorus Magnesium 08/29/17 08/29/17 08/29/17 04:36 07:32 08:45 WBC 10.3 RBC 3.01 L Hgb 8.9 L Hct 28.0 L MCV 93.0 MCH 29.6 MCHC 31.8 RDW 15.9 H Plt Count 185 MPV 11.1 Immature Gran % 0.6 Seg Neutrophils % 85.7 Lymphocytes % 5.7 Monocytes % 7.1 Eosinophils % 0.7 Basophils % 0.2 Neutrophils # 8.8 Lymphocytes # 0.6 Monocytes # 0.7 Eosinophils # 0.1 Basophils # 0.0 ABG pH ABG pCO2 ABG pO2 ABG HCO3 ABG Total CO2 ABG O2 Saturation ABG Base Excess O2 Delivery Device Blood Gas Modality Inspired O2 PEEP Sodium 150 H Potassium 3.3 L Chloride 110 H Carbon Dioxide 28 BUN 76 H Creatinine 2.83 H Est GFR ( Amer) 27 L Est GFR (Non-Af Amer) 22 L BUN/Creatinine Ratio 27 H Glucose 116 H POC Glucose 117 H Calculated Osmolality 334 H Calcium 8.1 L Ionized Calcium 1.08 L Phosphorus 3.7 Magnesium 1.5 L - Impressions Impressions Chest X-Ray 08/29/17 07:56
[2017-08-29] MEDS ORDERED: Ipratropium/Albuterol Neb 3 ML IH PRN ×2 (13:25→14:42)
[2017-08-29] MEDS ORDERED: Dextrose Gel 15 GM PO PRN ×4 (13:25→14:42)
[2017-08-29] MEDS ORDERED: Naloxone 0.4 MG/ML INJ IVP PRN ×2 (13:25→14:42)
[2017-08-29] MEDS ORDERED: *HR* FentaNYL (PF) 100 MCG/2 ML VIAL IVP PRN (13:25)
[2017-08-29] MEDS ORDERED: D5% in Water 1,000 ML IVC PRN ×2 (13:25→14:42)
[2017-08-29] MEDS ORDERED: Sennosides/Docusate Sodium TABLET PO PRN ×2 (13:25→14:42)
[2017-08-29] MEDS ORDERED: *HR* Dextrose 50 % in Water (Syg) 50 ML SYRINGE IVP PRN ×2 (13:25→14:42)
[2017-08-29] MEDS ORDERED: Vancomycin 1 EACH in EMPTY BAG 1 EACH IVPB SCH (13:25)
[2017-08-29] MEDS ORDERED: Ondansetron 4 MG/2 ML VIAL IVP PRN ×2 (13:25→14:42)
[2017-08-29] MEDS ORDERED: *HR* Heparin 5,000 UNIT/ML VIAL SQ SCH (14:00)
[2017-08-29 14:50] LABS: ABG Base Excess 5 mEq/L (-2 to 3); ABG HCO3 31 mEq/L (21-27); ABG Oxygen Saturation 94 % (95-98); ABG PCO2 55 mmHg (35-45); ABG PH 7.36 pH Units (7.32-7.45); ABG PO2 75 mmHg (85-104); ABG TCO2 33 mEq/L (20-26)
[2017-08-29] MEDS ORDERED: *HR* Metoprolol 5 MG/5 ML VIAL IVP SCH ×2 (15:00)
[2017-08-29] MEDS: *HR* Metoprolol 5 MG/5 ML VIAL IVP SCH ×2 (15:13→20:44)
[2017-08-29] MEDS ORDERED: Insulin LISPRO 300 UNITS/3 ML VIAL SQ SCH (16:00)
[2017-08-29] MEDS ORDERED: Piperacillin/Tazobactam 3.375 GM in D5% in Water 50 ML IVPB SCH (16:00)
[2017-08-29] MEDS ORDERED: Furosemide 40 MG/4 ML VIAL IVP SCH ×2 (17:00→21:00)
--- NOTE | 2017-08-29 17:01 | Event Note ---
Date of Encounter: 08/29/17 Time of Encounter: 16:30 Transfer orders were placed after it was decided with ICU team that patient was stable and his nursing needs could be safely met upon transfer out of the ICU. I spoke with the admitting hospitalist, Dr. Kashif Kaufman, by telephone re: transfer of this patient and Dr. Kaufman accepted the transfer.
[2017-08-29] MEDS: Furosemide 40 MG/4 ML VIAL IVP SCH (17:13)
[2017-08-29] MEDS ORDERED: Aminoglycoside Consult 1 EACH MC ONE (18:59)
[2017-08-29] MEDS ORDERED: Chlorhexidine Rinse 15 ML MOUTHWASH MM SCH (21:00)
[2017-08-29] MEDS ORDERED: Budesonide/Formoterol 160/4.5 MDI IH SCH (22:00)
[2017-08-30] MEDS: *HR* Metoprolol 5 MG/5 ML VIAL IVP SCH ×4 (03:53→21:09)
[2017-08-30] MEDS: Insulin LISPRO 300 UNITS/3 ML VIAL SQ SCH ×5 (04:06→21:24)
[2017-08-30] MEDS: *HR* FentaNYL (PF) 100 MCG/2 ML VIAL IVP PRN ×3 (04:07→23:33)
[2017-08-30] MEDS: *HR* Heparin 5,000 UNIT/ML VIAL SQ SCH ×3 (05:31→21:13)
[2017-08-30 05:41] LABS: Basophils % 0.3 %; Hematocrit 27.6 % (37.5-50.1); Hemoglobin 8.7 g/dL (12.9-16.9); Immature Granulocytes % 0.3 % (0-4); Lymphocytes # 0.5 K/mcL (0.6-4.6); Lymphocytes % 6.6 %; Mean Corpuscular HGB Conc 31.5 g/dL (31.6-35.5); Mean Corpuscular Hemoglobin 29.2 pg (28.0-33.3); Mean Corpuscular Volume 92.6 fL (83.0-100.0); Mean Platelet Volume 10.9 fL (9.4-12.4); Monocytes # 0.4 K/mcL (0.0-1.3); Platelet Count 171 K/mcL (140-400); Red Blood Count 2.98 M/mcL (4.19-5.50); Red Cell Distribution Width 15.9 % (11.5-14.5); Segmented Neutrophils % 86.8 %
[2017-08-30 05:53] LABS: Calcium 8.3 mg/dL (8.6-10.8); Potassium 2.9 mEq/L (3.5-4.5)
[2017-08-30] MEDS ORDERED: Vancomycin 1 EACH in EMPTY BAG 1 EACH IVPB SCH (08:00)
--- NOTE | 2017-08-30 08:46 | Internal Med Progress Note ---
<Yariel Miller - Last Filed: 08/30/17 14:47> Date of Encounter: 08/30/17 Time of Encounter: 11:00 - Assessment and plan (1) Acute respiratory failure Current Visit: Yes Status: Acute Assessment and plan: -transitioned to 2N02 from ICU 08/29/17 -on bipap, saturating mid 90's, single episode 08/29 where patient desaturated due to removal of bipap. -Pt's code status updated by palliative to DNRCCDNI, does not want reintubation/ trach/PEG tube, wants to be comfortable if resp status worsens. Qualifiers: Respiratory failure complication: hypoxia Qualified Code(s): J96.01 - Acute respiratory failure with hypoxia (2) Acute GI bleeding Current Visit: Yes Status: Acute Assessment and plan: Recent history of preciptious drop in hgb, requiring 5U PRBC. EGD demonstrated bleeding polyp which was cauterized. H&H stable. Persistent melena today 08/29, monitor H&H. (3) Cardiac arrest Current Visit: Yes Status: Acute Assessment and plan: Pt VSS, H&H stabilized. Continue ASA, statin. (4) Septic shock Current Visit: Yes Status: Resolved Assessment and plan: afebile, pulse WNL, stable BPs, recet hx osteomyelitis L heel + DM foot ulcers seen by wound care and ID. Continuing Vanc, zosyn (5) Acute kidney injury Current Visit: Yes Status: Acute Assessment and plan: YUMIKO in setting of cardiac arrest. Nephrology assesses no indication for dialysis at this time. Continued diuresis for LE swelling and pulmonary fluid load. (6) Diabetic ulcer of both feet Current Visit: Yes Status: Chronic Assessment and plan: Wound care on service. Well healing. Continuing Vanc/Zosyn. (7) Diabetes Current Visit: Yes Status: Chronic Assessment and plan: On SSI, will continue monitoring. 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 mellitus halfway insulin use: without halfway use Qualified Code( s): E11.621 - Type 2 diabetes mellitus with foot ulcer; L97.509 - Non-pressure chronic ulcer of other part of unspecified foot with unspecified severity; L97.509 - Non-pressure chronic ulcer of other part of unspecified foot with unspecified severity; L97.509 - Non-pressure chronic ulcer of other part of unspecified foot with unspecified severity; L97.509 - Non-pressure chronic ulcer of other part of unspecified foot with unspecified severity (8) CAD (coronary artery disease) Current Visit: Yes Status: Chronic Assessment and plan: H&H stable. Continue cardiac tele. Continue home medical CAD management. Qualifiers: Coronary Disease-Associated Artery/Lesion type: [place] artery [place] vs. transplanted heart: [place] heart Associated angina: without angina Qualified Code(s): I25.10 - Atherosclerotic heart disease of [place] coronary artery without angina pectoris (9) Encephalopathy Current Visit: Yes Status: Acute Assessment and plan: Alert, tracks movement, squeezes in reaction to squeeze, does not follow commands. No acute intracranial abnormalities on last CT. Reassess communication modalities daily. (10) DVT prophylaxis Current Visit: Yes Status: Acute Assessment and plan: Receiving Heparin 5000U sq q8 - Subjective Interval history: Mr. Mayorga, 77M, s/p cardiopulmonary arrest x2 on 08/15/17. Etiology unclear possibly respiratory failure, cardiogenic, or hypovolemic. Cauterized GI bleed, melena with drop in H&H, transfused 5U PRBC, currently stable H&H. Pt on vent in ICU for 2 weeks, extubated, on bipap. Currently non-verbal, can communicate with intermittent head nods, however, currently inconsistent with what he nods to. Palliative has updated code to DN-CCA-DNI. Continuing each day to assess comfort level, pain level, and communication ability. - Constitutional Vitals: Temp Pulse Resp BP Pulse Ox 97.9 F 75 18 161/84 97 08/30/17 07:48 08/30/17 07:48 08/30/17 07:48 08/30/17 07:48 08/30/17 07:48 General appearance: Absent: answers questions appropriately Exam: Bipap dependent, alert, tracks with eyes and neck to place in room. Squeezes reactively to squeeze of hand, however, does not sqeeze when asked. - Head Head exam: Present: atraumatic - Eye Eye exam: Present: EOMI, normal appearance - Neck Neck exam general surgery: Absent: lymphadenopathy Additional comments: Lateral motion observed and intact. - Respiratory Additional comments: bipap dependent, good saturation - Cardiovascular Cardiovascular exam: Present: RRR. Absent: JVD, systolic murmur - Extremities Exam Additional comments: bear-huggers in place Internal Medicine: Result - Labs CBC & Chem 7: 08/30/17 05:05 08/30/17 05:05 Labs: Short CBC 08/29/17 08/30/17 Range/Units 08:45 05:05 WBC 10.3 7.0 (4.3-11.1) K/mcL Hgb 8.9 L 8.7 L (12.9-16.9) g/dL Hct 28.0 L 27.6 L (37.5-50.1) % Plt Count 185 171 (140-400) K/mcL Neutrophils # 8.8 6.0 (1.6-8.9) K/mcL BMP 08/30/17 05:05 Sodium 154 H Potassium 2.9 L Chloride 111 H Carbon Dioxide 33 H BUN 74 H Creatinine 2.64 H Glucose 136 H Calcium 8.3 L - ABG Interpretation ABG results: ABG ABG pH 7.36 pH Units (7.32-7.45) 08/29/17 14:45 ABG pCO2 55 mmHg (35-45) H 08/29/17 14:45 ABG pO2 75 mmHg (85-104) L 08/29/17 14:45 ABG O2 Saturation 94 % (95-98) L 08/29/17 14:45 PT/INR, D-dimer PT 13.7 Seconds (9.4-12.1) H 08/27/17 03:10 - Impressions Impressions Chest X-Ray 08/29/17 07:56 IMPRESSION: 1. Status post extubation. There is complete left hemithorax consolidation consistent with combination of large effusion and atelectasis versus pneumonia. 2. Stable right pleural effusion and pulmonary consolidation. The findings were sent to the Radiology Results Communication Center at 8:46 am on 08/29/2017to be communicated to a licensed caregiver. D/ / 08/29/2017 09:02:29 Mejia Dorsey MD / Anna Fortune Interpreting Provider: Mejia Dorsey MD - VTE Documentation of Mechanical Device: Intermittent pneumatic compression device Consult Discharge Plan - Plan Referrals: Poncho Noriega MD [Primary Care Provider] - <MandeepKashif Carito - Last Filed: 08/30/17 17:00> Date of Encounter: 08/30/17 - Assessment and plan (1) Acute respiratory failure Current Visit: Yes Status: Acute Qualifiers: Respiratory failure complication: hypoxia Qualified Code(s): J96.01 - Acute respiratory failure with hypoxia (2) Cardiac arrest Current Visit: Yes Status: Resolved (3) Ventricular tachycardia Current Visit: Yes Status: Acute (4) Hypokalemia Current Visit: Yes Status: Acute Assessment and plan: Replace today. (5) Hypomagnesemia Current Visit: Yes Status: Acute Assessment and plan: Replace today. (6) Hypernatremia Current Visit: Yes Status: Acute Assessment and plan: Hold diuretic and trial small amount of free water. (7) Acute GI bleeding Current Visit: Yes Status: Acute (8) HTN (hypertension) Current Visit: No Status: Chronic Qualifiers: Hypertension type: essential hypertension Qualified Code(s): I10 - Essential (primary) hypertension (9) Osteomyelitis Current Visit: No Status: Acute Assessment and plan: Complete abx. Qualifiers: Osteomyelitis type: other acute Osteomyelitis location: foot Laterality: left Qualified Code(s): M86.172 - Other acute osteomyelitis, left ankle and foot - Constitutional Vitals: Temp Pulse Resp BP Pulse Ox 95.5 F L 64 18 160/82 95 08/30/17 16:25 08/30/17 16:25 08/30/17 16:25 08/30/17 16:25 08/30/17 16:25 Internal Medicine: Result - Labs CBC & Chem 7: 08/30/17 05:05 08/30/17 05:05 Labs: Short CBC 08/30/17 Range/Units 05:05 WBC 7.0 (4.3-11.1) K/mcL Hgb 8.7 L (12.9-16.9) g/dL Hct 27.6 L (37.5-50.1) % Plt Count 171 (140-400) K/mcL Neutrophils # 6.0 (1.6-8.9) K/mcL BMP 08/30/17 05:05 Sodium 154 H Potassium 2.9 L Chloride 111 H Carbon Dioxide 33 H BUN 74 H Creatinine 2.64 H Glucose 136 H Calcium 8.3 L - ABG Interpretation ABG results: ABG ABG pH 7.36 pH Units (7.32-7.45) 08/29/17 14:45 ABG pCO2 55 mmHg (35-45) H 08/29/17 14:45 ABG pO2 75 mmHg (85-104) L 08/29/17 14:45 ABG O2 Saturation 94 % (95-98) L 08/29/17 14:45 PT/INR, D-dimer PT 13.7 Seconds (9.4-12.1) H 08/27/17 03:10 - Attending Attestation I examined this patient and my medical decision-making was reviewed with the Resident Physician on 08/30/17. I agree with the documented findings, disposition and treatment plan as described except to the extent set forth below. Mr Mayorga is currently admitted for acute cardiac arrest and persistent hypoxic resp failure. He remains moderate to high risk due to potential for worsening respiratory and cardiac status. Mr Mayorga is nonverbal but does not occasionally. Does not consistently follow commands. No fever or chills. Actually was hypothermic this afternoon and bear hugger applied. Also had run on NSVT this afternoon as well. Was able to be transitioned to oxymask today and is maintaining saturation at this point. Shakes head no when asked if has pain. No family has been present or reachable today. Exam Alert. Does not respond verbally Does not appear uncomfortable Bipap mask in place during my exam Mucus membranes dry Heart reg - not tachy Lungs with scattered rhonchi Abd soft Pulses felt Extremities cool I/P 1. Hypoxic resp failure 2. GI bleed Further diagnoses and plan as above.
--- NOTE | 2017-08-30 08:47 | Nephrology Progress Note ---
Date of Encounter: 08/30/17 Time of Encounter: 08:35 - Assessment and Plan (1) Acute kidney injury Current Visit: Yes Status: Acute YUMIKO in setting of cardiac arrest, hypovolemia, Vanc toxicity. Will monitor, no immediate need for dialysis. Avoid nephrotoxins. Documented urine output 3500cc. Renal fct stable, creat 2.64, K 2.9. Will give k rider. Hypernatremic. Needs free water. Will start on D5W at 75cc/hr. Will continue to monitor. Subjective Principal diagnosis: Cardiac Arrest Interval history: Transferred from ICU to . BiPap, awake, no eye tracking noted. Objective - Vital Signs Vital signs: Vital Signs Temp Pulse Resp BP Pulse Ox 08/30/17 07:48 97.9 F 75 18 161/84 97 08/30/17 06:06 20 99 08/30/17 04:02 77 19 177/77 08/29/17 23:17 98.1 F 70 20 164/75 96 08/29/17 22:22 19 96 08/29/17 22:21 19 155/77 97 08/29/17 19:30 98.5 F 08/29/17 19:23 76 22 155/77 91 08/29/17 15:45 74 20 169/70 96 08/29/17 13:00 79 19 201/86 97 08/29/17 12:00 80 20 167/79 100 08/29/17 11:58 97.5 F L 08/29/17 11:15 80 08/29/17 11:00 79 21 170/75 100 08/29/17 10:00 87 23 161/72 100 08/29/17 09:37 23 198/105 100 08/29/17 09:00 84 22 166/70 96 Intake and Output 08/29/17 08/30/17 08/30/17 23:59 07:59 15:59 Intake Total 50 / 50 50 / 50 Output Total 1750 / 1750 700 / 700 Balance -1700 / -1700 -650 / -650 Intake: IV Fluids 50 / 50 50 / 50 Zosyn 3.375 GM In Dextrose 5% ( 50 / 50 50 / 50 ADD-[place]) 50 ML @ 12.5 mls/ hr IVPB Q8HR COUNTS INCLUDE 234 BEDS AT THE [facility] Rx#:[id number] Oral 0 / 0 Output: Catheter 1750 / 1750 700 / 700 Other: Blood Glucose* 173 130 - General Appearance General appearance: Present: chronically ill EENT: Present: mucous membranes moist Neck: Present: no JVD Respiratory: Present: clear Cardiology: Present: edema, regular rate, regular rhythm Gastrointestinal: Present: hypoactive bowel sounds, no tenderness Integumentary: Present: warm and dry - Lab 08/30/17 05:05 08/30/17 05:05 Most recent lab results ABG pH 7.36 pH Units (7.32-7.45) 08/29/17 14:45 ABG pCO2 55 mmHg (35-45) H 08/29/17 14:45 ABG pO2 75 mmHg (85-104) L 08/29/17 14:45 ABG HCO3 31 mEq/L (21-27) H 08/29/17 14:45 ABG O2 Saturation 94 % (95-98) L 08/29/17 14:45 Calcium 8.3 mg/dL (8.6-10.8) L 08/30/17 05:05 Phosphorus 3.7 mg/dL (2.3-4.7) 08/29/17 04:36 Magnesium 1.5 mg/dL (1.6-2.6) L 08/29/17 04:36 - VTE Documentation of Mechanical Device: Intermittent pneumatic compression device Consult Discharge Plan - Plan Referrals: Poncho Noriega MD [Primary Care Provider] -
[2017-08-30] MEDS: Furosemide 40 MG/4 ML VIAL IVP SCH ×2 (08:48→16:18)
[2017-08-30] MEDS: Piperacillin/Tazobactam 3.375 GM in D5% in Water 50 ML IVPB SCH ×3 (08:49→23:28)
--- NOTE | 2017-08-30 08:50 | Palliative Progress Note ---
<Santos Bird - Last Filed: 08/30/17 08:48> Date of Encounter: 08/30/17 Time of Encounter: 08:48 - Assessment and plan (1) Goals of care, counseling/discussion Current Visit: Yes Status: Acute Assessment and plan: DNRCCDNI Does not want to be reintubated. Does not want tracheostomy or PEG tube. If his respiratory status worsens he would like to be Comfortable. Told patient that currently he is BIPAP dependent which cannot be continued indefinetly. Asked if he would like to be comfortable but while patient seqeezes hand and moves toes he is not answering any questions. Will call son today to update. Prognosis poor: patient is bipap dependent, being diuresed to improved respiratory status but now hypernatremic requiring D5W and also does not have any nutritional intake. (2) GI bleed Current Visit: Yes Status: Resolved Assessment and plan: resolved. Required total 5 units PBRC Bleeding polyp on EGD which was cauterized hgb stable. 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 ID on board. (6) Broken ribs Current Visit: Yes Status: Acute Assessment and plan: 2nd to cpr multiple broken ribs patient denies pain with breathing fentanyl prn for pain - Time Spent With Patient Total time spent is greater than 50% in coordination of care (as documented) at patient's floor/unit and/or counseling patient: - Subjective Interval history: BIPAP dependednt. follows commands but no communicative. - Constitutional Vitals: Abnormal lab results RBC 2.98 M/mcL (4.19-5.50) L 08/30/17 05:05 Hgb 8.7 g/dL (12.9-16.9) L 08/30/17 05:05 Hct 27.6 % (37.5-50.1) L 08/30/17 05:05 MCHC 31.5 g/dL (31.6-35.5) L 08/30/17 05:05 RDW 15.9 % (11.5-14.5) H 08/30/17 05:05 Lymphocytes # 0.5 K/mcL (0.6-4.6) L 08/30/17 05:05 Nucleated RBCs/100 WBC 0.1 /100 WBC (0) H 08/23/17 04:30 Platelet Estimate Decreased (Normal) L 08/20/17 04:45 Immature Plt Fraction 10.3 % (1.1-6.1) H 08/24/17 07:55 ESR 28 mm/hr (0-10) H 08/23/17 21:20 PT 13.7 Seconds (9.4-12.1) H 08/27/17 03:10 ABG pCO2 55 mmHg (35-45) H 08/29/17 14:45 ABG pO2 75 mmHg (85-104) L 08/29/17 14:45 ABG HCO3 31 mEq/L (21-27) H 08/29/17 14:45 ABG Total CO2 33 mEq/L (20-26) H 08/29/17 14:45 ABG O2 Saturation 94 % (95-98) L 08/29/17 14:45 ABG Base Excess 5 mEq/L (-2 to 3) H 08/29/17 14:45 Sodium 154 mEq/L (136-145) H 08/30/17 05:05 Potassium 2.9 mEq/L (3.5-4.5) L 08/30/17 05:05 Chloride 111 mEq/L (98-109) H 08/30/17 05:05 Carbon Dioxide 33 mEq/L (19-29) H 08/30/17 05:05 BUN 74 mg/dL (8-26) H 08/30/17 05:05 Creatinine 2.64 mg/dL (0.72-1.25) H 08/30/17 05:05 Est GFR ( Amer) 29 (> 60) L 08/30/17 05:05 Est GFR (Non-Af Amer) 24 (> 60) L 08/30/17 05:05 BUN/Creatinine Ratio 28 (6-26) H 08/30/17 05:05 Glucose 136 mg/dL (70-99) H 08/30/17 05:05 POC Glucose 173 (58-89) H 08/29/17 23:37 Hemoglobin A1c 7.4 % (-5.6) H 08/15/17 05:02 Calculated Osmolality 342 (280-300) H 08/30/17 05:05 Calcium 8.3 mg/dL (8.6-10.8) L 08/30/17 05:05 Ionized Calcium 1.08 mmol/L (1.15-1.35) L 08/29/17 04:36 Magnesium 1.5 mg/dL (1.6-2.6) L 08/29/17 04:36 Lactate Dehydrogenase 149 Units/L (159-327) L 08/24/17 08:51 Troponin I 1.08 ng/mL (0-0.03) H* 08/15/17 12:00 C-Reactive Protein 86 mg/L (Less than 5) H 08/23/17 13:48 Serum Total Protein 5.2 g/dL (6.0-8.3) L 08/28/17 03:12 Albumin 2.1 g/dL (3.5-5.0) L 08/28/17 03:12 Albumin/Globulin Ratio 0.7 (1.1-2.2) L 08/28/17 03:12 Urine Clarity Turbid (Clear) A 08/14/17 20:57 Urine Protein >=300 mg/dL (Neg-Trace) H 08/14/17 20:57 Urine Ketones Trace mg/dL (Negative) H 08/14/17 20:57 Urine Blood Large (Negative) H 08/14/17 20:57 Ur Leukocyte Esterase Large (Negative) H 08/14/17 20:57 Urine Microscopic RBC TNTC per hpf (0-3) H 08/14/17 20:57 Urine Microscopic WBC TNTC per hpf (0-3) H 08/14/17 20:57 Urine Yeast Few per hpf (None Seen) H 08/14/17 20:57 Ur Culture Indicated? YES (NO) A 08/14/17 20:57 Stool Occult Blood Positive (Negative) A 08/23/17 22:25 Vancomycin Trough 39.8 mcg/mL (10-20) H* 08/16/17 21:05 - Additional findings Additional findings: General: moderate distress Heart: Regular rate and rhythm with no murmur Lungs: diminished with rales. BIPAP dependent Abdomen: Soft nontender, nondistended positive bowel sounds Skin: warm and dry Extremities: 2+ pedal edema Neuro: alert, following commands, not answering questions, unclear if patient is confused or does not want to interact. Vascular: Pedal and radial pulses 2 out of 4 Palliative Quality Palliative Quality: Screen for Code Status: Yes, Screen for Goals of Care: Yes, Screen for Pain: Yes, If Pain Regimen Started, Initiate Bowel Regimen: Yes, Screen for Nausea/Vomitting: No Code Status: 08/15/17 00:52 Resuscitation Status: Active [RES] Routine Comment: Resuscitation Status: Full Code 08/18/17 11:42 CODE [Resuscitation Status: Active] [RES] Routine Comment: Resuscitation Status: DNR-Comfort Care-Arrest CODE [Resuscitation Status: Active] [RES] Routine Comment: Resuscitation Status: [id number] - Labs CBC & Chem 7: 08/30/17 05:05 08/30/17 05:05 Labs: Laboratory Results - last 24 hr 08/29/17 08/29/17 08/29/17 08:45 11:32 14:45 WBC 10.3 RBC 3.01 L Hgb 8.9 L Hct 28.0 L MCV 93.0 MCH 29.6 MCHC 31.8 RDW 15.9 H Plt Count 185 MPV 11.1 Immature Gran % 0.6 Seg Neutrophils % 85.7 Lymphocytes % 5.7 Monocytes % 7.1 Eosinophils % 0.7 Basophils % 0.2 Neutrophils # 8.8 Lymphocytes # 0.6 Monocytes # 0.7 Eosinophils # 0.1 Basophils # 0.0 Sample Site R Radial ABG pH 7.36 ABG pCO2 55 H ABG pO2 75 L ABG HCO3 31 H ABG Total CO2 33 H ABG O2 Saturation 94 L ABG Base Excess 5 H Esteban Test Positive O2 Delivery Device Oxy Mask Inspired O2 7.0 Sodium Potassium Chloride Carbon Dioxide BUN Creatinine Est GFR ( Amer) Est GFR (Non-Af Amer) BUN/Creatinine Ratio Glucose POC Glucose 135 H Calculated Osmolality Calcium Random Vancomycin 08/29/17 08/29/17 08/29/17 15:41 19:37 23:37 WBC RBC Hgb Hct MCV MCH MCHC RDW Plt Count MPV Immature Gran % Seg Neutrophils % Lymphocytes % Monocytes % Eosinophils % Basophils % Neutrophils # Lymphocytes # Monocytes # Eosinophils # Basophils # Sample Site ABG pH ABG pCO2 ABG pO2 ABG HCO3 ABG Total CO2 ABG O2 Saturation ABG Base Excess [place] Test O2 Delivery Device Inspired O2 Sodium Potassium Chloride Carbon Dioxide BUN Creatinine Est GFR ( Amer) Est GFR (Non-Af Amer) BUN/Creatinine Ratio Glucose POC Glucose 167 H 178 H 173 H Calculated Osmolality Calcium Random Vancomycin 08/30/17 08/30/17 08/30/17 05:05 05:05 05:05 WBC 7.0 RBC 2.98 L Hgb 8.7 L Hct 27.6 L MCV 92.6 MCH 29.2 MCHC 31.5 L RDW 15.9 H Plt Count 171 MPV 10.9 Immature Gran % 0.3 Seg Neutrophils % 86.8 Lymphocytes % 6.6 Monocytes % 6.0 Eosinophils % 0.0 Basophils % 0.3 Neutrophils # 6.0 Lymphocytes # 0.5 L Monocytes # 0.4 Eosinophils # 0.0 Basophils # 0.0 Sample Site ABG pH ABG pCO2 ABG pO2 ABG HCO3 ABG Total CO2 ABG O2 Saturation ABG Base Excess [place]an Test O2 Delivery Device Inspired O2 Sodium 154 H Potassium 2.9 L Chloride 111 H Carbon Dioxide 33 H BUN 74 H Creatinine 2.64 H Est GFR ( Amer) 29 L Est GFR (Non-Af Amer) 24 L BUN/Creatinine Ratio 28 H Glucose 136 H POC Glucose Calculated Osmolality 342 H Calcium 8.3 L Random Vancomycin 15.7 - Impressions Impressions Chest X-Ray 08/29/17 07:56 IMPRESSION: 1. Status post extubation. There is complete left hemithorax consolidation consistent with combination of large effusion and atelectasis versus pneumonia. 2. Stable right pleural effusion and pulmonary consolidation. The findings were sent to the Radiology Results Communication Center at 8:46 am on 08/29/2017to be communicated to a licensed caregiver. D/ / 08/29/2017 09:02:29 Mejia Dorsey MD / Anna Fortune Interpreting Provider: Mejia Dorsey MD - ABG Interpretation ABG results: ABG ABG pH 7.36 pH Units (7.32-7.45) 08/29/17 14:45 ABG pCO2 55 mmHg (35-45) H 08/29/17 14:45 ABG pO2 75 mmHg (85-104) L 08/29/17 14:45 ABG O2 Saturation 94 % (95-98) L 08/29/17 14:45 PT/INR, D-dimer PT 13.7 Seconds (9.4-12.1) H 08/27/17 03:10 Consult Discharge Plan - Plan Referrals: Poncho Noriega MD [Primary Care Provider] - <Juwan Hennessy - Last Filed: 08/30/17 11:10> Date of Encounter: 08/30/17 - Time Spent With Patient Total time spent is greater than 50% in coordination of care (as documented) at patient's floor/unit and/or counseling patient: - Constitutional Vitals: Abnormal lab results RBC 2.98 M/mcL (4.19-5.50) L 08/30/17 05:05 Hgb 8.7 g/dL (12.9-16.9) L 08/30/17 05:05 Hct 27.6 % (37.5-50.1) L 08/30/17 05:05 MCHC 31.5 g/dL (31.6-35.5) L 08/30/17 05:05 RDW 15.9 % (11.5-14.5) H 08/30/17 05:05 Lymphocytes # 0.5 K/mcL (0.6-4.6) L 08/30/17 05:05 Nucleated RBCs/100 WBC 0.1 /100 WBC (0) H 08/23/17 04:30 Platelet Estimate Decreased (Normal) L 08/20/17 04:45 Immature Plt Fraction 10.3 % (1.1-6.1) H 08/24/17 07:55 ESR 28 mm/hr (0-10) H 08/23/17 21:20 PT 13.7 Seconds (9.4-12.1) H 08/27/17 03:10 ABG pCO2 55 mmHg (35-45) H 08/29/17 14:45 ABG pO2 75 mmHg (85-104) L 08/29/17 14:45 ABG HCO3 31 mEq/L (21-27) H 08/29/17 14:45 ABG Total CO2 33 mEq/L (20-26) H 08/29/17 14:45 ABG O2 Saturation 94 % (95-98) L 08/29/17 14:45 ABG Base Excess 5 mEq/L (-2 to 3) H 08/29/17 14:45 Sodium 154 mEq/L (136-145) H 08/30/17 05:05 Potassium 2.9 mEq/L (3.5-4.5) L 08/30/17 05:05 Chloride 111 mEq/L (98-109) H 08/30/17 05:05 Carbon Dioxide 33 mEq/L (19-29) H 08/30/17 05:05 BUN 74 mg/dL (8-26) H 08/30/17 05:05 Creatinine 2.64 mg/dL (0.72-1.25) H 08/30/17 05:05 Est GFR ( Amer) 29 (> 60) L 08/30/17 05:05 Est GFR (Non-Af Amer) 24 (> 60) L 08/30/17 05:05 BUN/Creatinine Ratio 28 (6-26) H 08/30/17 05:05 Glucose 136 mg/dL (70-99) H 08/30/17 05:05 POC Glucose 173 (58-89) H 08/29/17 23:37 Hemoglobin A1c 7.4 % (-5.6) H 08/15/17 05:02 Calculated Osmolality 342 (280-300) H 08/30/17 05:05 Calcium 8.3 mg/dL (8.6-10.8) L 08/30/17 05:05 Ionized Calcium 1.08 mmol/L (1.15-1.35) L 08/29/17 04:36 Magnesium 1.5 mg/dL (1.6-2.6) L 08/29/17 04:36 Lactate Dehydrogenase 149 Units/L (159-327) L 08/24/17 08:51 Troponin I 1.08 ng/mL (0-0.03) H* 08/15/17 12:00 C-Reactive Protein 86 mg/L (Less than 5) H 08/23/17 13:48 Serum Total Protein 5.2 g/dL (6.0-8.3) L 08/28/17 03:12 Albumin 2.1 g/dL (3.5-5.0) L 08/28/17 03:12 Albumin/Globulin Ratio 0.7 (1.1-2.2) L 08/28/17 03:12 Urine Clarity Turbid (Clear) A 08/14/17 20:57 Urine Protein >=300 mg/dL (Neg-Trace) H 08/14/17 20:57 Urine Ketones Trace mg/dL (Negative) H 08/14/17 20:57 Urine Blood Large (Negative) H 08/14/17 20:57 Ur Leukocyte Esterase Large (Negative) H 08/14/17 20:57 Urine Microscopic RBC TNTC per hpf (0-3) H 08/14/17 20:57 Urine Microscopic WBC TNTC per hpf (0-3) H 08/14/17 20:57 Urine Yeast Few per hpf (None Seen) H 08/14/17 20:57 Ur Culture Indicated? YES (NO) A 08/14/17 20:57 Stool Occult Blood Positive (Negative) A 08/23/17 22:25 Vancomycin Trough 39.8 mcg/mL (10-20) H* 08/16/17 21:05 - Attending Attestation I examined this patient and my medical decision-making was reviewed with the Resident Physician. I agree with the documented findings, disposition and treatment plan as described except to the extent set forth below. You are actively trying to reach the patient's brother or son to give them an update in the patient's lack of progress. And to suggest probable hospice. Palliative Quality Code Status: 08/15/17 00:52 Resuscitation Status: Active [RES] Routine Comment: Resuscitation Status: Full Code 08/18/17 11:42 CODE [Resuscitation Status: Active] [RES] Routine Comment: Resuscitation Status: DNR-Comfort Care-Arrest CODE [Resuscitation Status: Active] [RES] Routine Comment: Resuscitation Status: [id number] - Labs CBC & Chem 7: 08/30/17 05:05 08/30/17 05:05 Labs: Laboratory Results - last 24 hr 08/29/17 08/29/17 08/29/17 11:32 14:45 15:41 WBC RBC Hgb Hct MCV MCH MCHC RDW Plt Count MPV Immature Gran % Seg Neutrophils % Lymphocytes % Monocytes % Eosinophils % Basophils % Neutrophils # Lymphocytes # Monocytes # Eosinophils # Basophils # Sample Site R Radial ABG pH 7.36 ABG pCO2 55 H ABG pO2 75 L ABG HCO3 31 H ABG Total CO2 33 H ABG O2 Saturation 94 L ABG Base Excess 5 H Esteban Test Positive O2 Delivery Device Oxy Mask Inspired O2 7.0 Sodium Potassium Chloride Carbon Dioxide BUN Creatinine Est GFR ( Amer) Est GFR (Non-Af Amer) BUN/Creatinine Ratio Glucose POC Glucose 135 H 167 H Calculated Osmolality Calcium Random Vancomycin 08/29/17 08/29/17 08/30/17 19:37 23:37 05:05 WBC RBC Hgb Hct MCV MCH MCHC RDW Plt Count MPV Immature Gran % Seg Neutrophils % Lymphocytes % Monocytes % Eosinophils % Basophils % Neutrophils # Lymphocytes # Monocytes # Eosinophils # Basophils # Sample Site ABG pH ABG pCO2 ABG pO2 ABG HCO3 ABG Total CO2 ABG O2 Saturation ABG Base Excess [place] Test O2 Delivery Device Inspired O2 Sodium Potassium Chloride Carbon Dioxide BUN Creatinine Est GFR ( Amer) Est GFR (Non-Af Amer) BUN/Creatinine Ratio Glucose POC Glucose 178 H 173 H Calculated Osmolality Calcium Random Vancomycin 15.7 08/30/17 08/30/17 05:05 05:05 WBC 7.0 RBC 2.98 L Hgb 8.7 L Hct 27.6 L MCV 92.6 MCH 29.2 MCHC 31.5 L RDW 15.9 H Plt Count 171 MPV 10.9 Immature Gran % 0.3 Seg Neutrophils % 86.8 Lymphocytes % 6.6 Monocytes % 6.0 Eosinophils % 0.0 Basophils % 0.3 Neutrophils # 6.0 Lymphocytes # 0.5 L Monocytes # 0.4 Eosinophils # 0.0 Basophils # 0.0 Sample Site ABG pH ABG pCO2 ABG pO2 ABG HCO3 ABG Total CO2 ABG O2 Saturation ABG Base Excess Esteban Test O2 Delivery Device Inspired O2 Sodium 154 H Potassium 2.9 L Chloride 111 H Carbon Dioxide 33 H BUN 74 H Creatinine 2.64 H Est GFR ( Amer) 29 L Est GFR (Non-Af Amer) 24 L BUN/Creatinine Ratio 28 H Glucose 136 H POC Glucose Calculated Osmolality 342 H Calcium 8.3 L Random Vancomycin - ABG Interpretation ABG results: ABG ABG pH 7.36 pH Units (7.32-7.45) 08/29/17 14:45 ABG pCO2 55 mmHg (35-45) H 08/29/17 14:45 ABG pO2 75 mmHg (85-104) L 08/29/17 14:45 ABG O2 Saturation 94 % (95-98) L 08/29/17 14:45 PT/INR, D-dimer PT 13.7 Seconds (9.4-12.1) H 08/27/17 03:10
[2017-08-30] MEDS ORDERED: Pantoprazole 40 MG VIAL IVP SCH (09:00)
[2017-08-30] MEDS ORDERED: Aspirin 325 MG TABLET PO SCH ×2 (09:00)
[2017-08-30] MEDS ORDERED: amLODIPine 5 MG TABLET PO SCH ×2 (09:00)
[2017-08-30] MEDS: D5% in Water 1,000 ML IVC SCH (10:49)
[2017-08-30] MEDS: Budesonide/Formoterol 160/4.5 MDI IH SCH ×2 (11:08→23:18)
[2017-08-30] MEDS ORDERED: Magnesium Sulfate 1 GM in D5% in Water 100 ML IVPB ONE (15:51)
[2017-08-31] MEDS: Insulin LISPRO 300 UNITS/3 ML VIAL SQ SCH ×4 (00:36→11:52)
[2017-08-31] MEDS: D5% in Water 1,000 ML IVC SCH ×2 (01:02→11:47)
[2017-08-31] MEDS: *HR* Metoprolol 5 MG/5 ML VIAL IVP SCH ×2 (03:31→08:09)
[2017-08-31 04:54] LABS: Basophils % 0.1 %; Eosinophils % 0.1 %; Immature Granulocytes % 0.5 % (0-4); Lymphocytes # 0.6 K/mcL (0.6-4.6); Lymphocytes % 5.3 %; Mean Corpuscular HGB Conc 32.5 g/dL (31.6-35.5); Mean Corpuscular Hemoglobin 29.7 pg (28.0-33.3); Mean Corpuscular Volume 91.3 fL (83.0-100.0); Mean Platelet Volume 11.2 fL (9.4-12.4); Monocytes # 0.5 K/mcL (0.0-1.3); Monocytes % 4.9 %; Neutrophils # 9.4 K/mcL (1.6-8.9); Platelet Count 174 K/mcL (140-400); Red Blood Count 2.19 M/mcL (4.19-5.50); Red Cell Distribution Width 15.9 % (11.5-14.5); Segmented Neutrophils % 89.1 %
[2017-08-31 05:05] LABS: Hemoglobin 6.5 g/dL (12.9-16.9)
[2017-08-31 05:08] LABS: Calcium 7.6 mg/dL (8.6-10.8); Magnesium 1.5 mg/dL (1.6-2.6); Potassium 2.7 mEq/L (3.5-4.5)
[2017-08-31] MEDS: *HR* Heparin 5,000 UNIT/ML VIAL SQ SCH ×2 (06:24→11:44)
[2017-08-31 06:45] LABS: Basophils % 0.1 %; Eosinophils % 0.1 %; Hematocrit 19.6 % (37.5-50.1); Hemoglobin 6.4 g/dL (12.9-16.9); Immature Granulocytes % 0.4 % (0-4); Lymphocytes # 0.8 K/mcL (0.6-4.6); Lymphocytes % 6.8 %; Mean Corpuscular HGB Conc 32.7 g/dL (31.6-35.5); Mean Corpuscular Hemoglobin 29.8 pg (28.0-33.3); Mean Corpuscular Volume 91.2 fL (83.0-100.0); Mean Platelet Volume 11.2 fL (9.4-12.4); Monocytes # 0.6 K/mcL (0.0-1.3); Monocytes % 4.9 %; Platelet Count 176 K/mcL (140-400); Red Blood Count 2.15 M/mcL (4.19-5.50); Segmented Neutrophils % 87.7 %
[2017-08-31] MEDS: Budesonide/Formoterol 160/4.5 MDI IH SCH (08:04)
[2017-08-31] MEDS: Pantoprazole 40 MG VIAL IVP SCH ×2 (08:08→08:55)
[2017-08-31] MEDS: Piperacillin/Tazobactam 3.375 GM in D5% in Water 50 ML IVPB SCH (08:10)
[2017-08-31] MEDS ORDERED: 0.9 % Sodium Chloride 250 ML ONE (08:48)
[2017-08-31] MEDS: *HR* FentaNYL (PF) 100 MCG/2 ML VIAL IVP PRN (08:55)
--- NOTE | 2017-08-31 09:45 | Nephrology Progress Note ---
Date of Encounter: 08/31/17 Time of Encounter: 09:42 - Assessment and Plan (1) Acute kidney injury Current Visit: Yes Status: Acute Scr improving but urine output still not great No need for dialysis (2) Hypokalemia Current Visit: Yes Status: Acute Better but K still low. Needs to continue K replacement with KCL in D5W (3) Hypomagnesemia Current Visit: No Status: Acute Mg 1.5, corrected for low alb of 2.1 it is about nl but can have one more dose of 1 gm Mgso4 since he has still low K (4) Acute hypernatremia Current Visit: Yes Status: Acute Na improving. Came down from 154 to 151 today. It is possibly due to massive GI bleed ( with urea absorption from gut ) Pt continuing to have GI bleed which is ia accentuating hypernatremia Continue D5W with KCL (5) Anemia Current Visit: No Status: Acute Hgb dropped due to GI bleed. May need transfusion again Qualifiers: Anemia type: unspecified type Qualified Code(s): D64.9 - Anemia, unspecified (6) HTN (hypertension) Current Visit: No Status: Chronic BP moderately high. With Transfusion it may go up. Consider IV lasix while giving PRBC Qualifiers: Hypertension type: essential hypertension Qualified Code(s): I10 - Essential (primary) hypertension Subjective Principal diagnosis: Cardiac Arrest YUMIKO Interval history: Pt with YUMIKO due to cardiac arrest. Kidney fx slowly improving. He did not need dialysis so far. Developed hypernatremia due to massive GI bleed. Getting D5W, and sodium improving Also Hypokalemia with hypomagnesemia. K better but still low. Needs more replacement. Stil having greenish stool thru rectal tube. Urien output was 672 yesterday but it dropped off. Last shift UO minimal BP good Objective - Vital Signs Vital signs: Vital Signs Temp Pulse Resp BP Pulse Ox 08/31/17 08:05 18 92 08/31/17 07:53 96.6 F L 82 18 146/63 92 08/31/17 04:45 22 158/77 97 08/31/17 03:27 96.3 F L 75 20 158/77 94 08/31/17 01:00 22 149/71 95 08/31/17 00:42 95.5 F L 69 19 149/71 96 08/30/17 23:20 24 159/65 96 08/30/17 22:30 95.4 F L 84 20 149/63 96 08/30/17 20:09 95.6 F L 74 18 167/75 94 08/30/17 18:30 95.7 F L 08/30/17 17:30 95.9 F L 08/30/17 16:25 95.5 F L 64 18 160/82 95 08/30/17 15:20 96.0 F L 08/30/17 14:15 94.7 F L 08/30/17 13:15 93.4 F L 08/30/17 12:00 92.4 F L 08/30/17 11:09 20 98 08/30/17 11:00 72 18 161/79 94 Intake and Output 08/30/17 08/31/17 08/31/17 23:59 07:59 15:59 Intake Total 272 / 272 1150 / 1150 100 / 100 Output Total 1700 / 1700 0 / 0 Balance -1428 / -1428 1150 / 1150 100 / 100 Intake: IV Fluids 152 / 152 1150 / 1150 100 / 100 Dextrose 5% 1,000 ML @ 75 mls/ 1000 / 1000 hr IVC .[id number] [facility] Rx#: [id number] Magnesium Sulfate 1 GM In 102 / 102 Dextrose 5% 100 ML @ 100 mls/hr IVPB ONCE ONE Rx#:[id number] Zosyn 3.375 GM In Dextrose 5% ( 50 / 50 50 / 50 ADD-[place]) 50 ML @ 12.5 mls/ hr IVPB Q8HR [facility] Rx#:[id number] Potassium Chloride 10 mEq/100mL 100 / 100 100 / 100 10 meq In 100 ml @ 100 mls/hr IVPB Q1H [facility] Rx#:[id number] Oral 120 / 120 0 / 0 0 / 0 Output: Catheter 1700 / 1700 0 / 0 Other: Meal Dinner Percent of Meal Consumed 30% Blood Glucose* 172 171 - General Appearance General appearance: Present: cachectic, moderate distress, chronically ill, fatigue, frail EENT: Present: ATNC, PERRL, mucous membranes moist Neck: Present: no JVD, no thyromegaly, no carotid bruit, supple Respiratory: Present: no kyphosis, no scoliosis, rhonchi Additional Comments: On Bipap Cardiology: Present: no murmurs, no rub, no gallops, edema, regular rate, regular rhythm Additional Comments: Never been on dialysis Gastrointestinal: Present: normoactive bowel sounds, no tenderness, no guarding , no organomegaly, no masses Additional Comments: Rectal tube draining greenish stool Integumentary: Present: no rash, warm and dry, ulcer Additional Comments: Daibetic foot ulcer foot bandaged Neurologic: Present: no asterixis, confused Additional Comments: Barely s[peaks , On bipap Musculoskeletal: Present: no deformities, no erythema, erythema, no cyanosis, no clubbing Psychiatric: Present: depressed - Lab 08/31/17 06:29 08/31/17 04:19 Most recent lab results ABG pH 7.36 pH Units (7.32-7.45) 08/29/17 14:45 ABG pCO2 55 mmHg (35-45) H 08/29/17 14:45 ABG pO2 75 mmHg (85-104) L 08/29/17 14:45 ABG HCO3 31 mEq/L (21-27) H 08/29/17 14:45 ABG O2 Saturation 94 % (95-98) L 08/29/17 14:45 Calcium 7.6 mg/dL (8.6-10.8) L 08/31/17 04:19 Phosphorus 3.7 mg/dL (2.3-4.7) 08/29/17 04:36 Magnesium 1.5 mg/dL (1.6-2.6) L 08/31/17 04:19 - VTE Documentation of Mechanical Device: Intermittent pneumatic compression device Consult Discharge Plan - Plan Referrals: Poncho Noriega MD [Primary Care Provider] -
--- NOTE | 2017-08-31 10:32 | Internal Med Progress Note ---
Date of Encounter: 08/31/17 Time of Encounter: 10:32 - Assessment and plan (1) Acute respiratory failure Current Visit: Yes Status: Acute Assessment and plan: Currently on oxymask and saturating OK. Intermittently on bipap. Continue supportive care at this time and comfort measures. Qualifiers: Respiratory failure complication: hypoxia Qualified Code(s): J96.01 - Acute respiratory failure with hypoxia (2) Acute GI bleeding Current Visit: Yes Status: Acute Assessment and plan: Appears to have recurrent bleeding. H/H had been stable but dropped overnight. Do not feel he could tolerate EGD with his current respiratory (and do not intubate). Will transfuse again today and continue to try to reach family for further plans. (3) Cardiac arrest Current Visit: Yes Status: Resolved Assessment and plan: Resolved. (4) Ventricular tachycardia Current Visit: Yes Status: Acute Assessment and plan: Had episode yesterday. Has not recurred. Replacing K and Mag as well as replacing blood. Continue monitor. (5) Hypokalemia Current Visit: Yes Status: Acute Assessment and plan: Replace today again. Recheck again later and will give more IV if needed. (6) Hypomagnesemia Current Visit: Yes Status: Acute Assessment and plan: Replace today again. (7) Hypernatremia Current Visit: Yes Status: Acute Assessment and plan: Diuretic currently on hold. Sodium slightly better with free water and will continue this today as well. (8) HTN (hypertension) Current Visit: No Status: Chronic Assessment and plan: Uncontrolled. Medications adjusted for improved control. Qualifiers: Hypertension type: essential hypertension Qualified Code(s): I10 - Essential (primary) hypertension (9) Osteomyelitis Current Visit: No Status: Acute Assessment and plan: Complete abx. today Qualifiers: Osteomyelitis type: other acute Osteomyelitis location: foot Laterality: left Qualified Code(s): M86.172 - Other acute osteomyelitis, left ankle and foot - Subjective Interval history: Mr. Mayorga is currently admitted for hypoxic resp failure and GI bleed. He has developed recurrent bleeding and anemia requiring further blood transfusion. He remains moderate to high risk due to potential for worsening clinical status. Mr Mayorga has developed more bleeding today. He is awake but does not respond or follow commands. No fever or chills. No family present. Appreciate palliative care service input and attempts to reach family. He is off bipap at this time and on oxymask with good oxygen saturation. - Constitutional Vitals: Temp Pulse Resp BP Pulse Ox 95.5 F L 79 18 148/66 99 08/31/17 10:19 08/31/17 10:19 08/31/17 10:19 08/31/17 10:19 08/31/17 10:19 General appearance: Absent: answers questions appropriately - Head Head exam: Present: atraumatic, normocephalic - Eye Eye exam: Present: EOMI, conjuntiva pink - ENT ENT exam: Present: mucous membranes dry - Respiratory Respiratory exam: Present: decreased breath sounds, rhonchi. Absent: rales, wheezes - Cardiovascular Cardiovascular exam: Present: distant heart sounds, RRR - GI/Abdominal GI/Abdominal exam: Present: soft. Absent: mass, tenderness - Extremities Exam Extremities exam: Present: warm. Absent: tenderness - Neurological Exam Neurological exam: Present: alert Additional comments: Nonverbal. Does not follow commands. - Skin Skin exam: Present: pallor. Absent: rash Internal Medicine: Result - Labs CBC & Chem 7: 08/31/17 06:29 08/31/17 04:19 Labs: Short CBC 08/31/17 08/31/17 Range/Units 04:19 06:29 WBC 10.5 11.4 H (4.3-11.1) K/mcL Hgb 6.5 L D 6.4 L (12.9-16.9) g/dL Hct 20.0 L 19.6 L (37.5-50.1) % Plt Count 174 176 (140-400) K/mcL Neutrophils # 9.4 H 10.0 H (1.6-8.9) K/mcL BMP 08/31/17 04:19 Sodium 151 H Potassium 2.7 L Chloride 110 H Carbon Dioxide 34 H BUN 70 H Creatinine 2.47 H Glucose 164 H Calcium 7.6 L - ABG Interpretation ABG results: ABG ABG pH 7.36 pH Units (7.32-7.45) 08/29/17 14:45 ABG pCO2 55 mmHg (35-45) H 08/29/17 14:45 ABG pO2 75 mmHg (85-104) L 08/29/17 14:45 ABG O2 Saturation 94 % (95-98) L 08/29/17 14:45 PT/INR, D-dimer PT 13.7 Seconds (9.4-12.1) H 08/27/17 03:10 - VTE Documentation of Mechanical Device: Intermittent pneumatic compression device Consult Discharge Plan - Plan Referrals: Poncho Noriega MD [Primary Care Provider] -
--- NOTE | 2017-08-31 11:04 | Palliative Progress Note ---
Date of Encounter: 08/31/17 Time of Encounter: 10:45 - Assessment and plan (1) Goals of care, counseling/discussion Current Visit: Yes Status: Acute Assessment and plan: Patient continues to decline - now apparently with re-bleed - hgb 6.4. Attempted to call son - was able to reach his brother and update him with clinical issues. States he will have pt son Heriberto call me when he arrives. (2) Anemia Current Visit: No Status: Acute Assessment and plan: Currently being transfused. Doubt he would be good candidate for endoscopy at this point Qualifiers: Anemia type: unspecified type Qualified Code(s): D64.9 - Anemia, unspecified (3) Acute respiratory failure Current Visit: Yes Status: Acute Assessment and plan: Off bipap tolerating mask at this time. Qualifiers: Respiratory failure complication: hypoxia Qualified Code(s): J96.01 - Acute respiratory failure with hypoxia (4) Cardiac arrest Current Visit: Yes Status: Resolved (5) Sepsis Current Visit: No Status: Acute Assessment and plan: Continues on IV atb per hospitalist Qualifiers: Sepsis type: sepsis due to unspecified organism Qualified Code(s): A41.9 - Sepsis, unspecified organism - Time Spent With Patient Total time spent is greater than 50% in coordination of care (as documented) at patient's floor/unit and/or counseling patient: 25 - 35 minutes - Subjective Interval history: Patient with low hgb currently being transferred. Multiple electrolyte abnormalities. On warming blanket for low body temp. Opens eyes but no verbal response and not following commands for me. Off bipap at present. - Constitutional Vitals: Abnormal lab results WBC 11.4 K/mcL (4.3-11.1) H 08/31/17 06:29 RBC 2.15 M/mcL (4.19-5.50) L 08/31/17 06:29 Hgb 6.4 g/dL (12.9-16.9) L 08/31/17 06:29 Hct 19.6 % (37.5-50.1) L 08/31/17 06:29 RDW 16.0 % (11.5-14.5) H 08/31/17 06:29 Neutrophils # 10.0 K/mcL (1.6-8.9) H 08/31/17 06:29 Nucleated RBCs/100 WBC 0.1 /100 WBC (0) H 08/23/17 04:30 Platelet Estimate Decreased (Normal) L 08/20/17 04:45 Immature Plt Fraction 10.3 % (1.1-6.1) H 08/24/17 07:55 ESR 28 mm/hr (0-10) H 08/23/17 21:20 PT 13.7 Seconds (9.4-12.1) H 08/27/17 03:10 ABG pCO2 55 mmHg (35-45) H 08/29/17 14:45 ABG pO2 75 mmHg (85-104) L 08/29/17 14:45 ABG HCO3 31 mEq/L (21-27) H 08/29/17 14:45 ABG Total CO2 33 mEq/L (20-26) H 08/29/17 14:45 ABG O2 Saturation 94 % (95-98) L 08/29/17 14:45 ABG Base Excess 5 mEq/L (-2 to 3) H 08/29/17 14:45 Sodium 151 mEq/L (136-145) H 08/31/17 04:19 Potassium 2.7 mEq/L (3.5-4.5) L 08/31/17 04:19 Chloride 110 mEq/L (98-109) H 08/31/17 04:19 Carbon Dioxide 34 mEq/L (19-29) H 08/31/17 04:19 BUN 70 mg/dL (8-26) H 08/31/17 04:19 Creatinine 2.47 mg/dL (0.72-1.25) H 08/31/17 04:19 Est GFR ( Amer) 31 (> 60) L 08/31/17 04:19 Est GFR (Non-Af Amer) 26 (> 60) L 08/31/17 04:19 BUN/Creatinine Ratio 28 (6-26) H 08/31/17 04:19 Glucose 164 mg/dL (70-99) H 08/31/17 04:19 POC Glucose 171 (58-89) H 08/31/17 07:48 Hemoglobin A1c 7.4 % (-5.6) H 08/15/17 05:02 Calculated Osmolality 336 (280-300) H 08/31/17 04:19 Calcium 7.6 mg/dL (8.6-10.8) L 08/31/17 04:19 Ionized Calcium 1.08 mmol/L (1.15-1.35) L 08/29/17 04:36 Magnesium 1.5 mg/dL (1.6-2.6) L 08/31/17 04:19 Lactate Dehydrogenase 149 Units/L (159-327) L 08/24/17 08:51 Troponin I 1.08 ng/mL (0-0.03) H* 08/15/17 12:00 C-Reactive Protein 86 mg/L (Less than 5) H 08/23/17 13:48 Serum Total Protein 5.2 g/dL (6.0-8.3) L 08/28/17 03:12 Albumin 2.1 g/dL (3.5-5.0) L 08/28/17 03:12 Albumin/Globulin Ratio 0.7 (1.1-2.2) L 08/28/17 03:12 Urine Clarity Turbid (Clear) A 08/14/17 20:57 Urine Protein >=300 mg/dL (Neg-Trace) H 08/14/17 20:57 Urine Ketones Trace mg/dL (Negative) H 08/14/17 20:57 Urine Blood Large (Negative) H 08/14/17 20:57 Ur Leukocyte Esterase Large (Negative) H 08/14/17 20:57 Urine Microscopic RBC TNTC per hpf (0-3) H 08/14/17 20:57 Urine Microscopic WBC TNTC per hpf (0-3) H 08/14/17 20:57 Urine Yeast Few per hpf (None Seen) H 08/14/17 20:57 Ur Culture Indicated? YES (NO) A 08/14/17 20:57 Stool Occult Blood Positive (Negative) A 08/23/17 22:25 Vancomycin Trough 39.8 mcg/mL (10-20) H* 08/16/17 21:05 General appearance: Present: no acute distress - Respiratory Respiratory exam: Present: decreased breath sounds, CTAB - Cardiovascular Cardiovascular exam: Present: +S1, +S2 - GI/Abdominal GI/Abdominal exam: Present: diminished bowel sounds, soft Additional comments: Rectal tube with green liquid stool - Additional comments: Hernandez with cloudy yellow urine - Neurological Exam Neurological exam: Present: alert Additional comments: Unable to verbalize - opens eyes when name called. Would not follow commands for me at this time - Skin Skin exam: Present: dry, pallor, warm Palliative Quality Palliative Quality: Screen for Code Status: Yes, Screen for Goals of Care: Yes, Screen for Pain: Yes, If Pain Regimen Started, Initiate Bowel Regimen: Yes, Screen for Nausea/Vomitting: No Code Status: 08/15/17 00:52 Resuscitation Status: Active [RES] Routine Comment: Resuscitation Status: Full Code 08/18/17 11:42 CODE [Resuscitation Status: Active] [RES] Routine Comment: Resuscitation Status: DNR-Comfort Care-Arrest CODE [Resuscitation Status: Active] [RES] Routine Comment: Resuscitation Status: [id number] - Labs CBC & Chem 7: 08/31/17 06:29 08/31/17 04:19 Labs: Laboratory Results - last 24 hr 08/30/17 08/30/17 08/30/17 04:04 07:50 10:51 WBC RBC Hgb Hct MCV MCH MCHC RDW Plt Count MPV Immature Gran % Seg Neutrophils % Lymphocytes % Monocytes % Eosinophils % Basophils % Neutrophils # Lymphocytes # Monocytes # Eosinophils # Basophils # Sodium Potassium Chloride Carbon Dioxide BUN Creatinine Est GFR ( Amer) Est GFR (Non-Af Amer) BUN/Creatinine Ratio Glucose POC Glucose 138 H 130 H 129 H Calculated Osmolality Calcium Magnesium Blood Type Antibody Screen Crossmatch 08/30/17 08/30/17 08/30/17 16:06 20:02 23:29 WBC RBC Hgb Hct MCV MCH MCHC RDW Plt Count MPV Immature Gran % Seg Neutrophils % Lymphocytes % Monocytes % Eosinophils % Basophils % Neutrophils # Lymphocytes # Monocytes # Eosinophils # Basophils # Sodium Potassium Chloride Carbon Dioxide BUN Creatinine Est GFR ( Amer) Est GFR (Non-Af Amer) BUN/Creatinine Ratio Glucose POC Glucose 170 H 176 H 172 H Calculated Osmolality Calcium Magnesium Blood Type Antibody Screen Crossmatch 08/31/17 08/31/17 08/31/17 04:19 04:19 06:29 WBC 10.5 11.4 H RBC 2.19 L 2.15 L Hgb 6.5 L D 6.4 L Hct 20.0 L 19.6 L MCV 91.3 91.2 MCH 29.7 29.8 MCHC 32.5 32.7 RDW 15.9 H 16.0 H Plt Count 174 176 MPV 11.2 11.2 Immature Gran % 0.5 0.4 Seg Neutrophils % 89.1 87.7 Lymphocytes % 5.3 6.8 Monocytes % 4.9 4.9 Eosinophils % 0.1 0.1 Basophils % 0.1 0.1 Neutrophils # 9.4 H 10.0 H Lymphocytes # 0.6 0.8 Monocytes # 0.5 0.6 Eosinophils # 0.0 0.0 Basophils # 0.0 0.0 Sodium 151 H Potassium 2.7 L Chloride 110 H Carbon Dioxide 34 H BUN 70 H Creatinine 2.47 H Est GFR ( Amer) 31 L Est GFR (Non-Af Amer) 26 L BUN/Creatinine Ratio 28 H Glucose 164 H POC Glucose Calculated Osmolality 336 H Calcium 7.6 L Magnesium 1.5 L Blood Type Antibody Screen Crossmatch 08/31/17 08/31/17 06:54 07:48 WBC RBC Hgb Hct MCV MCH MCHC RDW Plt Count MPV Immature Gran % Seg Neutrophils % Lymphocytes % Monocytes % Eosinophils % Basophils % Neutrophils # Lymphocytes # Monocytes # Eosinophils # Basophils # Sodium Potassium Chloride Carbon Dioxide BUN Creatinine Est GFR ( Amer) Est GFR (Non-Af Amer) BUN/Creatinine Ratio Glucose POC Glucose 171 H Calculated Osmolality Calcium Magnesium Blood Type O POSITIVE Antibody Screen NEGATIVE Crossmatch See Detail - ABG Interpretation ABG results: ABG ABG pH 7.36 pH Units (7.32-7.45) 08/29/17 14:45 ABG pCO2 55 mmHg (35-45) H 08/29/17 14:45 ABG pO2 75 mmHg (85-104) L 08/29/17 14:45 ABG O2 Saturation 94 % (95-98) L 08/29/17 14:45 PT/INR, D-dimer PT 13.7 Seconds (9.4-12.1) H 08/27/17 03:10 Consult Discharge Plan - Plan Referrals: Poncho Noriega MD [Primary Care Provider] -
[2017-08-31 13:32] VITALS: BP 105/56
--- NOTE | 2017-08-31 15:36 | Death Note ---
Discharge Sum: Summary - Date and Time Date of admission: 08/14/17 22:19 Date of : 08/31/17 Time of : 15:15 - Summary Details: Mr. Mayorga originally presented to hospital of 08/14/17 following cardiac arrest. He had ROSC and was initially admitted to ICU. At that time he was treated for sepsis due to foot wound. He had worsening renal function and remained on ventilator. Abx were continued but source felt to be aspiration. He needed pressors initially as well. Palliative care was consulted and after meeting with family he was made DNAR. He had difficulty with being weaned off ventilator. There also was concern for STEMI on admit and he was medically managed. He had slow progression in the ICU. He was maintained on IV abx to cover probable aspiration and foot ulcers. Renal function stabilized and he was off pressors. On 08/24 he developed acute GI bleed. He was transfused and had EGD with noted bleeding polyp which was cauterized. He remained on the ventilator at that time. He slowly was weaned from ventilator and ultimately extubated on 08/29. He chose not to be reintubated and was made DNR/DNI and transferrred out of ICU. He remained on IV abx and bipap. He was transferred to 2N and remained on bipap due to hypoxemia. He was alert but not speaking or following commands. He became more hypernatremic and hypokalemic and supplement and free water were added. On 08/31 it was noted he was anemic again and appeared to be GI bleeding again. Due to his respiratory status he would not tolerate endoscopy. Blood transfusion ordered. Approx 1515 he became apneic and pulseless. He was pronounced at that time. Family contacted and will be in. D/C time 45min - Additional Data Confirmation of as documented by pronouncing clinician: no pulse, no respirations, no heart sounds Family: contacted Attending/PCP notified?: Yes Attending physician: Kashif Kaufman, DO Was code activated?: No Autopsy requested?: No garment alteration examiner notified?: No Organ bank notified?: No Advance directives: Yes Hospice patient?: No Discharge Sum: Diag - PCOD Probable Cause of : Hypoxia Discharge Sum: Prov - Provider Primary care physician: Poncho Noriega MD Admitting clinician: Gary See Attending physician on admission: Robert Rodriguez Consults: 08/15/17 00:52 Consult to Physician [CONS] Routine Consulting Provider: Robert Rodriguez Reason for Consult: ICU management Call Completed: No 08/15/17 09:12 Consult to Wound Care [CONS] Routine Reason for Consult: Multiple foot ulcers Call Completed: No 08/15/17 13:04 Consult to Cardiology [CONS] Routine Comment: Consulting Provider: Cardiology [place] Reason for Consult: Cardiac Arrest/elevated troponin Call Completed: Yes 08/16/17 09:05 Consult to Interpret Exam [CONS] Routine Consulting Provider: Jayson Reyna Consult to Interpret Exam: Interpret EEG 08/16/17 10:38 Consult to Palliative Care [CONS] Routine Comment: Consulting Provider: Palliative Care [place] Reason for Consult: Cardiac Arrest/goals of care Call Completed: Yes 08/16/17 11:59 Consult to Nutrition [CONS] Routine Comment: Consulting Provider: NUTRITION Reason for Dietary Consult: TF Start and Manage 08/21/17 11:52 Consult to Infectious Diseases [CONS] Routine Consulting Provider: Infectious Disease [place] Reason for Consult: Hx of osteo Call Completed: Yes 08/26/17 13:50 Consult to Occupational Therapy [CONS] Routine Comment: Evaluate, develop and implement POC Reason for Consult: Early rehabilitation, ICU Consult to Physical Therapy [CONS] Routine Comment: Evaluate, develop and implement POC Reason for Consult: Early rehabilitation, ICU 08/29/17 11:36 Consult to Speech Therapy [CONS] Stat Comment: Evaluate, develop and implement POC Reason for Consult: swallow evaluation Call Completed: Yes Pronouncing clinician: Kashif Kaufman
== END 2017-08-31 19:00 | disposition expired | DRG 870 ==
LOC: EMEROO 20:11 → SUATTDRO 22:19 → ICNU 22:19 → 2NNU 08-29 16:07
PROVIDERS: ADMIT Pediatrics; ATTEND Internal Medicine